=== PATIENT | male | born 1980 | race Caucasian/White ===

== ENCOUNTER 2020-07-08 00:55 | Emergency (ER) | payer SELFPAY ==
[2020-07-08 01:53] LABS: Absolute Lymphocytes (CBC) 2.6 K/uL (0.7-4.9); Basophils % 0.6 % (0-1.3); Hematocrit 46.5 % (39.6-49.0); RBC Red Blood Cell Count 5.18 M/uL (4.33-5.43)
[2020-07-08 02:04] LABS: BUN Blood Urea Nitrogen 14 mg/dL (7-18); Bicarbonate 29 mmol/L (21-32); Glucose Level 112 mg/dL (74-106); Lipase 77 U/L (73-393); Magnesium 2.1 mg/dL (1.8-2.4); NT PRO-BNP 43 pg/mL (<125); Phosphorus 3.1 mg/dL (2.5-4.9); Sodium Level 143 mmol/L (136-145); Troponin (Emerg Dept Use Only) < 0.02 ng/mL (0.0-0.045)
[2020-07-08] MEDS ORDERED: ONDANSETRON 4 MG/2 ML VIAL ONE (02:15)
[2020-07-08 02:35] LABS: Barbiturates NEGATIVE (NEGATIVE); Benzodiazepines NEGATIVE (NEGATIVE); Cocaine NEGATIVE (NEGATIVE); METHAMPHETAM POSITIVE (NEGATIVE); Methadone NEGATIVE (NEGATIVE); Opiates NEGATIVE (NEGATIVE); Phencyclidine NEGATIVE (NEGATIVE); THC Cannibis POSITIVE (NEGATIVE)
--- NOTE | 2020-07-08 03:48 | EDPHYS ---
Physician Documentation [facility] Name: Ta Quezada Age: 40 yrs Sex: Male : 1980 Arrival Date: 07/08/2020 Time: 01:00 Bed 8 Private MD: ED Physician Chirag Briones HPI: 07/08 01:46 This 40 yrs old Male presents to ER via Ambulatory with complaints of mh7 Shortness Of Breath, Dizziness, Decreased Appetite, Numbness of Fingers. 01:47 This 40 yrs old Male presents to ER via Ambulatory with complaints of mh7 Shortness Of Breath, Dizziness, Decreased Appetite, Numbness of Fingers. 01:47 The patient presents with dizziness, generalized weakness, lightheadedness. Onset: The mh7 symptoms/episode began/occurred yesterday, at 10:00. Context: occurred at home, occurred while the patient was at rest, just prior to the episode the patient experienced no apparent symptoms. Modifying factors: The symptoms are alleviated by nothing, the symptoms are aggravated by standing up. Associated signs and symptoms: Pertinent positives: nausea, numbness, shortness of breath, tingling, slurred speech, Pertinent negatives: blurred vision, chest pain, combativeness, diaphoresis, focal weakness, head injury, headache, near-syncope, palpitations, seizure, syncope, vomiting. Severity of symptoms: At their worst the symptoms were moderate yesterday, in the emergency department the symptoms have improved moderately. Patient's baseline: Neuro: alert and fully oriented, Motor: no deficits, Ambulation: walks without assistance, Speech: normal. Historical: - Allergies: 01:17 No Known Allergies; jb4 - Home Meds: 01:17 None [Active]; jb4 - PMHx: 01:17 Kidney stones; jb4 - PSHx: 01:17 None; jb4 - Immunization history:: Adult Immunizations up to date. - Social history:: Smoking status: Patient reports the use of cigarette tobacco products, smokes one-half pack cigarettes per day, Patient uses alcohol, but reports only rare drinking. Patient/guardian denies using street drugs. ROS: 01:47 Constitutional: Negative for fever, chills, and weight loss, Eyes: Negative for injury, mh7 pain, redness, and discharge, ENT: Negative for injury, pain, and discharge, Neck: Negative for injury, pain, and swelling, Cardiovascular: Negative for chest pain, palpitations, and edema, Back: Negative for injury and pain, : Negative for injury, bleeding, discharge, and swelling, MS/Extremity: Negative for injury and deformity, Skin: Negative for injury, rash, and discoloration, Psych: Negative for depression, anxiety, suicide ideation, homicidal ideation, and hallucinations, Allergy/Immunology: Negative for hives, rash, and allergies, Endocrine: Negative for neck swelling, polydipsia, polyuria, polyphagia, and marked weight changes, Hematologic/Lymphatic: Negative for swollen nodes, abnormal bleeding, and unusual bruising. Exam: 01:51 Head/Face: Normocephalic, atraumatic. Eyes: Pupils equal round and reactive to light, mh7 extra-ocular motions intact. Lids and lashes normal. Conjunctiva and sclera are non-icteric and not injected. Cornea within normal limits. Periorbital areas with no swelling, redness, or edema. Neck: Trachea midline, no thyromegaly or masses palpated, and no cervical lymphadenopathy. Supple, full range of motion without nuchal rigidity, or vertebral point tenderness. No Meningismus. Chest/axilla: Normal chest wall appearance and motion. Nontender with no deformity. No lesions are appreciated. Cardiovascular: Regular rate and rhythm with a normal S1 and S2. No gallops, murmurs, or rubs. Normal PMI, no JVD. No pulse deficits. Respiratory: Lungs have equal breath sounds bilaterally, clear to auscultation and percussion. No rales, rhonchi or wheezes noted. No increased work of breathing, no retractions or nasal flaring. Abdomen/GI: Soft, non-tender, with normal bowel sounds. No distension or tympany. No guarding or rebound. No evidence of tenderness throughout. Back: No spinal tenderness. No costovertebral tenderness. Full range of motion. Skin: Warm, dry with normal turgor. Normal color with no rashes, no lesions, and no evidence of cellulitis. 01:51 Psych: Awake, alert, with orientation to person, place and time. Behavior, mood, and affect are within normal limits. 01:51 Constitutional: The patient appears in no acute distress, alert, awake, anxious. 01:51 Musculoskeletal/extremity: 01:51 Neuro: Orientation: is normal, Mentation: is normal, Memory: is normal, Cranial nerves: grossly normal, Cerebellar function: is grossly normal, Motor: strength is 5/5 in the left arm, Strength is 3/5 in the right arm, the no evidence of posturing, Sensation: is normal, Gait: not tested. seizure activity, is not displayed by the patient, Abnormal movements: there are no abnormal movements. Vital Signs: 01:13 BP 146 / 97; Pulse 82; Resp 16; Temp 98.0(TE); Pulse Ox 99% on R/A; Weight 73.94 kg jb4 (R); Height 5 ft. 11 in. (180.34 cm) (R); Pain 0/10; 02:28 BP 144 / 81; Pulse 80; Resp 18; Pulse Ox 100% on R/A; mg2 03:53 BP 138 / 75; Pulse 60; Resp 18; Pulse Ox 100% on R/A; mg2 05:43 BP 127 / 71; Pulse 55; Resp 18; Pulse Ox 99% on R/A; mg2 06:42 BP 125 / 75; Pulse 75; Resp 18; Temp 98; Pulse Ox 100% on R/A; Pain 0/10; mg2 01:13 Body Mass Index 22.73 (73.94 kg, 180.34 cm) jb4 NIH Stroke Scale Scores: 01:23 NIHSS Score: 0 mg2 MDM: 01:26 Patient medically screened. mh7 03:45 Differential diagnosis: cardiac arrhythmia, CVA, generalized weakness, hypovolemia, mh7 idiopathic dizziness, near-syncope, syncope, TIA. Data reviewed: vital signs, nurses notes, lab test result(s), cardiac enzymes, CBC, electrolytes, urinalysis, urine drug screen, EKG, radiologic studies, CT scan, plain films. Data interpreted: Pulse oximetry: on room air is 100 %. Counseling: I had a detailed discussion with the patient and/or guardian regarding: the historical points, exam findings, and any diagnostic results supporting the discharge/admit diagnosis, the presence of at least one elevated blood pressure reading (>120/80) during this emergency department visit, lab results, radiology results, the need to transfer to another facility, for higher level of care, [facility] does not immediately have the required specialist. Response to treatment: the patient's symptoms have mildly improved after treatment. 07/08 01:31 Order name: Basic Metabolic Panel [facility] 07/08 01:31 Order name: CBC with Diff; Complete Time: 02:28 [facility] 07/08 01:31 Order name: Protime (+inr); Complete Time: 02:28 [facility] 07/08 01:31 Order name: Ptt, Activated; Complete Time: 02:28 [facility] 07/08 01:31 Order name: Troponin (emerg Dept Use Only); Complete Time: 02: [facility] 07/08 01:31 Order name: PROBNP; Complete Time: 02:28 [facility] 07/08 01:31 Order name: UDS; Complete Time: 03:35 [facility] 07/08 01:31 Order name: ETOH Level; Complete Time: 02: [facility] 07/08 01:31 Order name: Lipase; Complete Time: 02:28 [facility] 07/08 01:32 Order name: Basic Metabolic Panel; Complete Time: 02:28 [facility] 07/08 01:33 Order name: Glucose, Ancillary Testing; Complete Time: 01:45 [facility] 07/08 01:54 Order name: Phosphorus; Complete Time: 02:28 [facility] 07/08 01:31 Order name: CT Stroke Brain w/o Contrast [facility] 07/08 01:31 Order name: Stroke CXR 1 View [facility] 07/08 01:31 Order name: EKG; Complete Time: 01:33 [facility] 07/08 01:31 Order name: Accucheck; Complete Time: 01:38 [facility] 07/08 01:31 Order name: Cardiac monitoring; Complete Time: 01:38 [facility] 07/08 01:31 Order name: EKG - Nurse/Tech; Complete Time: 01:39 [facility] 07/08 01:31 Order name: IV Saline Lock; Complete Time: 01:39 [facility] 07/08 01:31 Order name: Labs collected and sent; Complete Time: 01:39 [facility] 07/08 01:31 Order name: NPO; Complete Time: 01:39 [facility] 07/08 01:54 Order name: Magnesium; Complete Time: 02:28 [facility] 07/08 02:24 Order name: Urine Dipstick--Ancillary (enter results) ms5 07/08 03:14 Order name: COVID-19 [facility] 07/08 03:34 Order name: SARS-COV-2 RT PCR [facility] 07/08 01:31 Order name: O2 Per Protocol; Complete Time: 01:39 7 07/08 01:31 Order name: O2 Sat Monitoring; Complete Time: 01:39 [facility] 07/08 01:31 Order name: Stroke Swallow Screen; Complete Time: 02:02 7 07/08 01:31 Order name: Urine Dipstick-Ancillary (obtain specimen); Complete Time: 02:06 7 Administered Medications: 02:06 Drug: Zofran (Ondansetron) 4 mg Route: IVP; Site: right antecubital; jb4 03:49 Follow up: Response: No adverse reaction mg2 04:57 Drug: Aspirin Chewable Tablet 324 mg Route: PO; mg2 06:05 Follow up: Response: No adverse reaction mg2 Point of Care Testing: Blood Glucose: 02:28 Blood Glucose: 108 mg/dL; mg2 Ranges: Critical Glucose Levels:Adult <50 mg/dl or >400 mg/dl <40 mg/dl or >180 mg/dl Disposition: 07/08/20 03:47 Transfer ordered to [facility]. Diagnosis is Cerebral Vascular Accident. - Reason for transfer: Higher level of care. - Accepting physician is Dr. Rousseau. - Condition is Stable. - Problem is new. - Symptoms have improved. NIH Stroke Scale - NIH Stroke Score Date: 07/08/2020 Time: Total Score = 0 1a. Level of Consciousness (LOC) - 0(Alert) 1b. Level of Consciousness (LOC) (Year \T\ Age) - 0(Both) 1c. LOC Commands (Open \T\ Closes Eyes/Production Estimator) - 0(Both) 2. Best Gaze (Lateral Gaze Paresis) - 0(Normal) 3. Visual Field Loss - 0(No visual loss) 4. Facial Palsy - 0(Normal) 5a. Left Arm: Motor (10-second hold) - 0(No drift) 5b. Right Arm: Motor (10-second hold) - 0(No drift) 6a. Left Leg: Motor (5-second hold - always test supine) - 0(No drift) 6b. Right Leg: Motor (5-second hold - always test supine) - 0(No drift) 7. Limb Ataxia (finger/nose \T\ heel/holm - test with eyes open) - 0(Absent) 8. Sensory Loss (pinprick arms/legs/face) - 0(Normal) 9. Best Language: Aphasia (description/naming/reading) - 0(No aphasia) 10. Dysarthria (speech clarity - read or repeat words) - 0(Normal) 11. Extinction and Inattention (visual/tactile/auditory/spatial/personal) - 0(No abnormality) Initials: mg2 Signatures: Dispatcher [employer] EDMS Edward Mcguire RN RN jb4 Den Morin RN RN mg2 Chirag Briones MD MD mh7 Corrections: (The following items were deleted from the chart) 01:54 01:51 MAGNESIUM+C.LAB.BRZ ordered. EDMS EDMS 01:54 01:51 PHOSPHORUS+C.LAB.BRZ ordered. EDMS EDMS 03:34 03:14 CORONAVIRUS ordered. EDMS EDMS 06:43 03:47 07/08/2020 03:47 Transfer ordered to [address] Diagnosis is Cerebral Vascular Accident. Reason for transfer: Higher level of care. Accepting physician is Dr. Rousseau. Condition is Stable. Problem is new. Symptoms have improved. mh7
--- NOTE | 2020-07-08 03:48 | ER ---
Nurse's Notes [facility] Name: Ta Quezada Age: 40 yrs Sex: Male : 1980 Arrival Date: 07/08/2020 Time: 01:00 Bed 8 Private MD: Diagnosis: Cerebral Vascular Accident Presentation: 07/08 01:13 Chief complaint: Chief complaint: Patient states: 1000 yesterday I started having jb4 slurred speech and my says I have been stuttering through out the day and loosing my train of thought. I have tingling on my right side and have been shaking all day. I am getting dizzy when I stand up and have some shortness of breath that comes and goes. I haven't had an appetite for the past for days, and have not been sleeping well. 01:13 Coronavirus screen: Client denies travel out of the [place] in the last 14 days. At this jb4 time, the client does not indicate any symptoms associated with coronavirus-19. Ebola Screen: No symptoms or risks identified at this time. Initial Sepsis Screen: Does the patient meet any 2 criteria? No. Patient's initial sepsis screen is negative. Does the patient have a suspected source of infection? No. Patient's initial sepsis screen is negative. Risk Assessment: Do you want to hurt yourself or someone else? Patient reports no desire to harm self or others. Onset of symptoms was July 07, 2020 at 10:00. Transition of care: patient was not received from another setting of care. 01:13 Method Of Arrival: Ambulatory jb4 01:13 Acuity: RENE 3 jb4 02:28 No acute neurological deficit is noted. The patients blood glucose was checked before mg2 arriving to the hospital and was found to be normal. Triage Assessment: 01:30 The onset of the patients symptoms was July 07, 2020 at 10:00. Respiratory: the mg2 patient has mild shortness of breath. 01:30 General: Appears in no apparent distress. comfortable. Respiratory: Reports shortness mg2 of breath Onset: The symptoms/episode began/occurred gradually. Historical: - Allergies: 01:17 No Known Allergies; jb4 - Home Meds: 01:17 None [Active]; jb4 - PMHx: 01:17 Kidney stones; jb4 - PSHx: 01:17 None; jb4 - Immunization history:: Adult Immunizations up to date. - Social history:: Smoking status: Patient reports the use of cigarette tobacco products, smokes one-half pack cigarettes per day, Patient uses alcohol, but reports only rare drinking. Patient/guardian denies using street drugs. Screenin:22 Abuse screen: Denies threats or abuse. Denies injuries from another. Nutritional mg2 screening: No deficits noted. Tuberculosis screening: No symptoms or risk factors identified. Fall Risk IV access (20 points). Assessment: :17 VAN Scoring: Arm Drift: Patients demonstrates NO arm weakness. Patient is VAN Negative. jb4 01:22 General: Appears in no apparent distress. comfortable, Behavior is calm, cooperative. mg2 Pain: Denies pain. Neuro: Level of Consciousness is awake, alert, obeys commands, Oriented to person, place, time, situation, Quartz Orientator are equal bilaterally. Neuro: Reports dizziness. Cardiovascular: Rhythm is sinus rhythm. Respiratory: Reports shortness of breath Airway is patent Respiratory effort is even, unlabored, Respiratory pattern is regular, symmetrical. GI: Reports nausea. : No signs and/or symptoms were reported regarding the genitourinary system. EENT: No signs and/or symptoms were reported regarding the EENT system. Derm: Skin is intact, is healthy with good turgor, Skin is pink, warm \T\ dry. normal. Musculoskeletal: Circulation, motion, and sensation intact. Capillary refill < 3 seconds. 02:27 Patient has been NPO before screening. The patient is alert, and able to follow mg2 commands. The patient does not exhibit slurred or garbled speech. The patient is not exhibiting difficulty speaking. The patient does not exhibit difficulty understanding words. The patient is able to swallow own secretions with no drooling or need for suction. Patient tolerated one teaspoon of water. No drooling, immediate coughing, gurgling, or clearing of the throat was noted. The patient tolerated 90mL of water. No drooling, immediate coughing, gurgling, or clearing of the throat was noted. The patient passed the bedside swallow screening. Oral medications may be given as ordered. Contact Physician for further diet orders. Provider notified of bedside swallow screening results: Chirag Briones MD. Respiratory: Breath sounds are clear. 03:30 Reassessment: patient agreed to be transferred to other facility for neuro admission. mg2 03:46 Reassessment: pt spouse has given me a blue bag with pt belonging inside, I have given sg the pt spouse a set of car keys and a set of keys to his shop. 04:33 Reassessment: report given to Nenita Flannery RN of [facility]. patient signed mg2 the transfer form. 05:44 Reassessment: Patient appears in no apparent distress at this time. Patient and/or mg2 family updated on plan of care and expected duration. Pain level reassessed. Patient is alert, oriented x 3, equal unlabored respirations, skin warm/dry/pink. 06:40 Reassessment: patient in good condition, pain-free, IV intact, AOx4. mg2 Vital Signs: 01:13 BP 146 / 97; Pulse 82; Resp 16; Temp 98.0(TE); Pulse Ox 99% on R/A; Weight 73.94 kg jb4 (R); Height 5 ft. 11 in. (180.34 cm) (R); Pain 0/10; 02:28 BP 144 / 81; Pulse 80; Resp 18; Pulse Ox 100% on R/A; mg2 03:53 BP 138 / 75; Pulse 60; Resp 18; Pulse Ox 100% on R/A; mg2 05:43 BP 127 / 71; Pulse 55; Resp 18; Pulse Ox 99% on R/A; mg2 06:42 BP 125 / 75; Pulse 75; Resp 18; Temp 98; Pulse Ox 100% on R/A; Pain 0/10; mg2 01:13 Body Mass Index 22.73 (73.94 kg, 180.34 cm) jb4 NIH Stroke Scale Scores: 01:23 NIHSS Score: 0 mg2 ED Course: 01:00 Patient arrived in ED. bp1 01:07 Chirag Briones MD is Attending Physician. mh7 01:09 Den Morin, ANGELICA is Primary Nurse. mg2 01:16 Triage completed. jb4 01:17 Arm band placed on right wrist. jb4 01:22 No provider procedures requiring assistance completed. Inserted saline lock: 20 gauge mg2 in right antecubital area, using aseptic technique. Blood collected. 01:23 Patient has correct armband on for positive identification. mg2 01:44 CT Stroke Brain w/o Contrast In Process Unspecified. EDMS 01:52 Stroke CXR 1 View In Process Unspecified. EDMS 03:09 Initiated transfer to [facility]. Spoke with Yaneth Jean, pt. diagnosis CVA needs [facility] neurology. 03:30 COVID 19 swab sent to the lab per hospital policy. sg 03:34 Dr. Briones spoke with neurologist Dr. Santillan. ar5 03:45 Dr. Briones spoke with Hospitalist Dr. Lopez. ar5 03:49 Patient transferred, IV remains in place. mg2 03:58 Acceptance given by Yaneth Jean. Accepting physician Dr. Lopez. Pt. going to [address] due to no bed availabiltiy \T\ [facility] [address] 371. Call report to . Administered Medications: 02:06 Drug: Zofran (Ondansetron) 4 mg Route: IVP; Site: right antecubital; jb4 03:49 Follow up: Response: No adverse reaction mg2 04:57 Drug: Aspirin Chewable Tablet 324 mg Route: PO; mg2 06:05 Follow up: Response: No adverse reaction mg2 Point of Care Testing: Blood Glucose: 02:28 Blood Glucose: 108 mg/dL; mg2 Ranges: Outcome: 03:47 ER care complete, transfer ordered by . 7 06:42 Transferred by ground EMS to other acute care facility: [facility]. mg2 06:42 Condition: stable 06:42 Instructed on the need for transfer, Demonstrated understanding of instructions. 06:43 Patient left the ED. mg2 NIH Stroke Scale - NIH Stroke Score Date: 07/08/2020 Time: 01:23 Total Score = 0 1a. Level of Consciousness (LOC) - 0(Alert) 1b. Level of Consciousness (LOC) (Year \T\ Age) - 0(Both) 1c. LOC Commands (Open \T\ Closes Eyes/Medical Assistant Prn) - 0(Both) 2. Best Gaze (Lateral Gaze Paresis) - 0(Normal) 3. Visual Field Loss - 0(No visual loss) 4. Facial Palsy - 0(Normal) 5a. Left Arm: Motor (10-second hold) - 0(No drift) 5b. Right Arm: Motor (10-second hold) - 0(No drift) 6a. Left Leg: Motor (5-second hold - always test supine) - 0(No drift) 6b. Right Leg: Motor (5-second hold - always test supine) - 0(No drift) 7. Limb Ataxia (finger/nose \T\ heel/holm - test with eyes open) - 0(Absent) 8. Sensory Loss (pinprick arms/legs/face) - 0(Normal) 9. Best Language: Aphasia (description/naming/reading) - 0(No aphasia) 10. Dysarthria (speech clarity - read or repeat words) - 0(Normal) 11. Extinction and Inattention (visual/tactile/auditory/spatial/personal) - 0(No abnormality) Initials: mg2 Signatures: Dispatcher [employer] EDRandall Shepherd RN RN sg Edward Mcguire RN RN jb4 Den Morin RN RN mg2 Antonette Reyes ar5 Caprice Bettencourt Maurice, MD MD 7 Corrections: (The following items were deleted from the chart) 01:16 01:13 Chief complaint: jbAlisha hanks 04:34 04:27 Acceptance given by Yaneth Jean. Accepting physician Dr. Lopez. Pt. ar5 going to [facility] due to no bed availabiltiy \T\ [facility] [address] 371. Call report to arRgoer
[2020-07-08 04:52] LABS: Urine Blood TRACE (NEG); Urine Glucose NEGATIVE (NEG); Urine Protein NEGATIVE (NEG); Urine Specific Gravity 1.025 (1.005-1.030)
[2020-07-08] MEDS ORDERED: ASPIRIN 81 MG CHEWABLE TABLET ONE (05:04)
[2020-07-08 06:56] VITALS: BP 125/75; TEMP 98; O2SAT 100
--- NOTE | 2020-07-08 08:30 | RAD REPORT ---
EXAM DESCRIPTION: RAD - Chest Single View - 07/08/2020 1:52 am CLINICAL HISTORY: SOB Chest pain. COMPARISON: No comparisons FINDINGS: Portable technique limits examination quality. The lungs are grossly clear. The heart is normal in size. No displaced fractures. IMPRESSION: No acute intrathoracic process suspected.
--- NOTE | 2020-07-08 14:03 | RAD REPORT ---
EXAM DESCRIPTION: Ct Stroke Brain Wo Cont ADDENDUM #1 ADDENDUM: THIS REPORT CONTAINS FINDINGS THAT MAY BE CRITICAL TO PATIENT'S CARE: The findings were verbally discussed via telephone conference with Chirag Briones by Dr. Gilliam on 07/08/2020 1:56 AM CDT. The results were acknowledged and understood. Electronically signed by: Fercho Gilliam DO 07/08/2020 1:56 AM CDT End of Addendum EXAM DESCRIPTION: Ct Stroke Brain Wo Cont CLINICAL HISTORY: 40 years Male Weakness;Dizziness COMPARISON: None TECHNIQUE: Contiguous axial images of the brain were obtained without the administration of intraven ous contrast.This exam was performed according to our departmental dose-optimization program which in cludes use of Automated Exposure Control, adjustment of the mA and/or kV according to patient size an d/or use of iterative reconstruction technique. DLP: 803 mGy*cm FINDINGS: Brain: No acute intracranial hemorrhage. No extra-axial collection. No mass effect or sara iation. Ventricles: Within normal limits in size. Globes and orbits: No acute abnormality. Bones: No acute osseous finding Paranasal sinuses: Paranasal sinuses are clear. Mastoid air cells: Well pneumatized. Soft tissues: Within normal limits IMPRESSION: No acute intracranial abnormality. Electronically signed by: Fercho Gilliam DO 07/08/2020 1:50 AM CDT Due to temporary technical issues with the PACS/Fluency reporting system, reports are being signed by the in house radiologist without review as a courtesy to ensure prompt reporting. The interpreting r adiologist is fully responsible for the content of the report.
== END 2020-07-08 06:43 | disposition short-term general hospital (02) ==
LOC: ER 00:55
DX: I63.9 Cerebral infarction, unspecified (principal); R29.700 NIHSS score 0; F17.210 Nicotine dependence, cigarettes, uncomplicated; Z20.828 Contact with and (suspected) exposure to other viral communicable diseases
CPT/HCPCS: 36415; 70450; 71045; 80048; 80307; 80320; 81003; 82947; 83690; 83735; 83880; 84100; 84484; 85025; 85610; 85730; 93005; 96374; 99285; J2405; U0003

== ENCOUNTER 2020-07-13 13:06 | Emergency (ER) | payer SELFPAY ==
--- OUTSIDE RECORDS SUMMARY | 2020-07-13 13:08 | XMS REPORT | Clinical Summary ---
:1980 Author Organization [facility] Address [address] [place] [address] Care Team Providers Name Role Phone Pcp Primary Care Provider Unavailable Allergies No Known Allergies Medications Medication Sig Dispensed Refills Start Date End Date Status aspirin 81 MG Take 1 tablet (81 0 07/08/2020 021 Active chewable tablet mg total) by mouth daily. Active Problems Problem Noted Date Tingling of right upper extremity 07/08/2020 Tingling 07/08/2020 Encounters Date Type Specialty Care Team Description 07/08/2020 Hospital Encounter General Internal John, [facility] MD Mague Aiken, MD Javier Bustamante Celestine, MD 07/08/2020 Travel after 07/13/2019 Social History Tobacco Use Types Packs/Day Years Used Date Current Every Day Smoker Smokeless Tobacco: Never Used Sex Assigned at Date Recorded Not on file Job Start Date Occupation Industry Not on file Not on file Not on file Travel History Travel Start Travel End No recent travel history available. Last Filed Vital Signs Vital Sign Reading Time Taken Blood Pressure 117/74 07/08/2020 8:00 PM CDT Pulse 50 07/08/2020 8:00 PM CDT Temperature 36.8 C (98.3 F) 07/08/2020 8:00 PM CDT Respiratory Rate 17 07/08/2020 8:00 PM CDT Oxygen Saturation 98% 07/08/2020 8:00 PM CDT Inhaled Oxygen Concentration - - Weight - - Height - - Body Mass Index - - Plan of Treatment Health Maintenance Due Date Last Done Comments PNEUMOCOCCAL VACCINE 2-64 YEARS AT RISK ( - 1985 PPSV23) LIPID PANEL 2014 INFLUENZA VACCINE (#1) 2020 Procedures Procedure Name Priority Date/Time Associated Diagnosis Comme nts MRA NECK WITHOUT IV Routine 07/08/2020 6:07 PM R esults for this CONTRAST CDT procedure are i n the results section. MRA HEAD WITHOUT IV Routine 07/08/2020 6:07 PM R esults for this CONTRAST CDT procedure are i n the results section. MR BRAIN WITHOUT IV Routine 07/08/2020 6:07 PM R esults for this CONTRAST CDT procedure are i n the results section. after 07/13/2019 Results MR brain without IV contrast (07/08/2020 6:07 PM CDT) Specimen Narrative Performed At FINAL REPORT [employer] [facility] MR, BRAIN, WITHOUT CONTRAST, MR, MRA, BR AIN, WITHOUT CONTRAST, MR, MRA, NECK, WITHOUT IV CONTRAST INDICATION: Unlisted Reason for Exam tingling/numbness TECHNIQUE: Multiplanar, multisequence MR imaging of the brain without intravenous contrast. MRA of the head utilizing 3-D time-of-fl ight technique, with 3-D reconstructions. MRA of the neck utilizing 2-D and 3-D ti wn-mv-ovvfwt technique, with 3-D reconstructions. COMPARISON: None FINDINGS: MRI Brain: Intracranial: No intracranial hemorrhage . No restricted diffusion to suggest acute infarct. No mass effect. No hydrocephalus. Sinuses: No evidence of sinusitis. Masto ids are clear. Orbits: Globes are intact. Calvarium \T\ scalp: Unremarkable. MRA Head: There is no evidence of intracranial ane urysm, focal stenosis, or major branch vessel occlusion. Diminutiv e left vertebral artery terminates in PICA. MRA Neck: The carotid arteries in the neck are pat ent including their bifurcations. There is antegrade flow in the vertebral arteries in the neck. Left vertebral artery is diminutive along the entirety of its course. IMPRESSION: 1.No acute intracranial abnormality. 2.No proximal branch arterial occlusion or high-grade focal stenosis within the head and neck. Signed: Talya Mcelroy MD Report Verified Date/Time:07/08/2020 19:26:58 Procedure Note Interface, External Ris In - 07/08/2020 7:29 PM CDT FINAL REPORT MR, BRAIN, WITHOUT CONTRAST, MR, MRA, BR AIN, WITHOUT CONTRAST, MR, MRA, NECK, WITHOUT IV CONTRAST INDICATION: Unlisted Reason for Exam tingling/numbness TECHNIQUE: Multiplanar, multisequence MR imaging of the brain without intravenous contrast. MRA of the head utilizing 3-D time-of-fl ight technique, with 3-D reconstructions. MRA of the neck utilizing 2-D and 3-D ti lf-bl-scmelp technique, with 3-D reconstructions. COMPARISON: None FINDINGS: MRI Brain: Intracranial: No intracranial hemorrhage . No restricted diffusion to suggest acute infarct. No mass effect. No hydrocephalus. Sinuses: No evidence of sinusitis. Masto ids are clear. Orbits: Globes are intact. Calvarium \T\ scalp: Unremarkable. MRA Head: There is no evidence of intracranial ane urysm, focal stenosis, or major branch vessel occlusion. Diminutiv e left vertebral artery terminates in PICA. MRA Neck: The carotid arteries in the neck are pat ent including their bifurcations. There is antegrade flow in the vertebral arteries in the neck. Left vertebral artery is diminutive along the entirety of its course. IMPRESSION: 1.No acute intracranial abnormality. 2.No proximal branch arterial occlusion or high-grade focal stenosis within the head and neck. Signed: Talya Mcelroy MD Report Verified Date/Time: 07/08/2020 1 9:26:58 Performing Organization Address City/State/Zipcode Phone Number [facility] MRA neck without IV contrast (07/08/2020 6:07 PM CDT) Specimen Narrative Performed At FINAL REPORT [facility] MR, BRAIN, WITHOUT CONTRAST, MR, MRA, BR AIN, WITHOUT CONTRAST, MR, MRA, NECK, WITHOUT IV CONTRAST INDICATION: Unlisted Reason for Exam tingling/numbness TECHNIQUE: Multiplanar, multisequence MR imaging of the brain without intravenous contrast. MRA of the head utilizing 3-D time-of-fl ight technique, with 3-D reconstructions. MRA of the neck utilizing 2-D and 3-D ti bf-pk-avxbnr technique, with 3-D reconstructions. COMPARISON: None FINDINGS: MRI Brain: Intracranial: No intracranial hemorrhage . No restricted diffusion to suggest acute infarct. No mass effect. No hydrocephalus. Sinuses: No evidence of sinusitis. Masto ids are clear. Orbits: Globes are intact. Calvarium \T\ scalp: Unremarkable. MRA Head: There is no evidence of intracranial ane urysm, focal stenosis, or major branch vessel occlusion. Diminutiv e left vertebral artery terminates in PICA. MRA Neck: The carotid arteries in the neck are pat ent including their bifurcations. There is antegrade flow in the vertebral arteries in the neck. Left vertebral artery is diminutive along the entirety of its course. IMPRESSION: 1.No acute intracranial abnormality. 2.No proximal branch arterial occlusion or high-grade focal stenosis within the head and neck. Signed: Tlaya Mcelroy MD Report Verified Date/Time:07/08/2020 19:26:58 Procedure Note Interface, External Ris In - 07/08/2020 7:29 PM CDT FINAL REPORT MR, BRAIN, WITHOUT CONTRAST, MR, MRA, BR AIN, WITHOUT CONTRAST, MR, MRA, NECK, WITHOUT IV CONTRAST INDICATION: Unlisted Reason for Exam tingling/numbness TECHNIQUE: Multiplanar, multisequence MR imaging of the brain without intravenous contrast. MRA of the head utilizing 3-D time-of-fl ight technique, with 3-D reconstructions. MRA of the neck utilizing 2-D and 3-D ti ab-ui-ridjks technique, with 3-D reconstructions. COMPARISON: None FINDINGS: MRI Brain: Intracranial: No intracranial hemorrhage . No restricted diffusion to suggest acute infarct. No mass effect. No hydrocephalus. Sinuses: No evidence of sinusitis. Masto ids are clear. Orbits: Globes are intact. Calvarium \T\ scalp: Unremarkable. MRA Head: There is no evidence of intracranial ane urysm, focal stenosis, or major branch vessel occlusion. Diminutiv e left vertebral artery terminates in PICA. MRA Neck: The carotid arteries in the neck are pat ent including their bifurcations. There is antegrade flow in the vertebral arteries in the neck. Left vertebral artery is diminutive along the entirety of its course. IMPRESSION: 1.No acute intracranial abnormality. 2.No proximal branch arterial occlusion or high-grade focal stenosis within the head and neck. Signed: Talya Mcelroy MD Report Verified Date/Time: 07/08/2020 1 9:26:58 Performing Organization Address City/State/Zipcode Phone Number [facility] MRA head without IV contrast (07/08/2020 6:07 PM CDT) Specimen Narrative Performed At FINAL REPORT [facility] MR, BRAIN, WITHOUT CONTRAST, MR, MRA, BR AIN, WITHOUT CONTRAST, MR, MRA, NECK, WITHOUT IV CONTRAST INDICATION: Unlisted Reason for Exam tingling/numbness TECHNIQUE: Multiplanar, multisequence MR imaging of the brain without intravenous contrast. MRA of the head utilizing 3-D time-of-fl ight technique, with 3-D reconstructions. MRA of the neck utilizing 2-D and 3-D ti qe-br-sjtzrc technique, with 3-D reconstructions. COMPARISON: None FINDINGS: MRI Brain: Intracranial: No intracranial hemorrhage . No restricted diffusion to suggest acute infarct. No mass effect. No hydrocephalus. Sinuses: No evidence of sinusitis. Masto ids are clear. Orbits: Globes are intact. Calvarium \T\ scalp: Unremarkable. MRA Head: There is no evidence of intracranial ane urysm, focal stenosis, or major branch vessel occlusion. Diminutiv e left vertebral artery terminates in PICA. MRA Neck: The carotid arteries in the neck are pat ent including their bifurcations. There is antegrade flow in the vertebral arteries in the neck. Left vertebral artery is diminutive along the entirety of its course. IMPRESSION: 1.No acute intracranial abnormality. 2.No proximal branch arterial occlusion or high-grade focal stenosis within the head and neck. Signed: Talya Mcelroy MD Report Verified Date/Time:07/08/2020 19:26:58 Procedure Note Interface, External Ris In - 07/08/2020 7:29 PM CDT FINAL REPORT MR, BRAIN, WITHOUT CONTRAST, MR, MRA, BR AIN, WITHOUT CONTRAST, MR, MRA, NECK, WITHOUT IV CONTRAST INDICATION: Unlisted Reason for Exam tingling/numbness TECHNIQUE: Multiplanar, multisequence MR imaging of the brain without intravenous contrast. MRA of the head utilizing 3-D time-of-fl ight technique, with 3-D reconstructions. MRA of the neck utilizing 2-D and 3-D ti dm-lm-impjww technique, with 3-D reconstructions. COMPARISON: None FINDINGS: MRI Brain: Intracranial: No intracranial hemorrhage . No restricted diffusion to suggest acute infarct. No mass effect. No hydrocephalus. Sinuses: No evidence of sinusitis. Masto ids are clear. Orbits: Globes are intact. Calvarium \T\ scalp: Unremarkable. MRA Head: There is no evidence of intracranial ane urysm, focal stenosis, or major branch vessel occlusion. Diminutiv e left vertebral artery terminates in PICA. MRA Neck: The carotid arteries in the neck are pat ent including their bifurcations. There is antegrade flow in the vertebral arteries in the neck. Left vertebral artery is diminutive along the entirety of its course. IMPRESSION: 1.No acute intracranial abnormality. 2.No proximal branch arterial occlusion or high-grade focal stenosis within the head and neck. Signed: Talya Mcelroy MD Report Verified Date/Time: 07/08/2020 1 9:26:58 Performing Organization Address City/State/Zipcode Phone Number [facility] RIS after 07/13/2019 Advance Directives For more information, please contact:[place] [id number] [place], [place] [phone] Code Status Date Activated Date Inactivated Comments Full Code 07/08/2020 10:30 AM 07/09/2020 1:14 AM This code status was determined by: Patient
--- OUTSIDE RECORDS SUMMARY | 2020-07-13 13:08 | XMS REPORT | Continuity of Care Document ---
:1980 Author Organization [facility] t Address [address] [place] [address] Care Team Providers Name Role Phone Pcp Primary Care Physician Unavailable John GUAMAN, Attila Attending Clinician Sonia Bowser MD Attending Clinician Javier Calderon MD Attending Clinician Problems Condition Condition Condition Status Onset Resolution Last Treating Co mments Source Name Details Category Date Date Treatment Clinician Date Tingling Tingling Disease [facility] Tingling Tingling Disease [facility] Allergies, Adverse Reactions, Alerts This patient has no known allergies or adverse reactions. Social History Social Habit Start Date Stop Date Quantity Comments Source Sex Assigned At [facility] Smoking Status Start Date Stop Date Source Current every day smoker 2020-07-08 00:00:00 [facility] Medications Ordered Filled Start Stop Current Ordering Indication Dosage Frequency Signature Comments Components Source Medication Medication Date Date Medication? Clinician (SIG) Name Name aspirin 81 2020- Yes 81mg QD Take [address] [facility] chewable 07-08 tablet (81 L [facility] - tablet 00:00: 23:59 mg total) Medic al 00 :00 by mouth Center daily. Vital Signs Vital Name Observation Time Observation Value Comments Source Systolic blood 2020-07-08 20:00:00 117 mm[Hg] [facility] Diastolic blood 2020-07-08 20:00:00 74 mm[Hg] [facility] Heart rate 2020-07-08 20:00:00 50 /min [facility] Body temperature 2020-07-08 20:00:00 36.83 [place] Respiratory rate 2020-07-08 20:00:00 17 /min [facility] Oxygen saturation in 2020-07-08 20:00:00 98 /min [facility] Arterial blood by Medical Ce nter Pulse oximetry Procedures Procedure Date / Time Performed Performing Clinician Sour e MR BRAIN WITHOUT IV 2020-07-08 18:07:00 Bowser, [facility] MRA HEAD WITHOUT IV 2020-07-08 18:07:00 [facility], [facility] CONTRAST [facility] MRA NECK WITHOUT IV 2020-07-08 18:07:00 Bowser, [facility] Plan of Care Planned Activity Planned Date Details Comments Source Future Scheduled 2020-06-18 INFLUENZA VACCINE (#1) [facility] - Test 00:00:00 [code = INFLUENZA Medical Ce nter VACCINE (#1)] Future Scheduled 2014 Lipid panel [facility] - Test 00:00:00 (procedure) [code = [facility] [id number]] Future Scheduled 1985 PNEUMOCOCCAL VACCINE [facility] - Test 00:00:00 2-64 YEARS AT RISK (1 [facility] - PPSV23) [code = PNEUMOCOCCAL VACCINE 2-64 YEARS AT RISK (1 of 1 - PPSV23)] Results Test Description Test Time Test Comments Results Result Sour e Comments MR, BRAIN, 2020-07-08 Unlisted FINAL REPORT WITHOUT CONTRAST 19:26:00 Reason for PATIENT ID: Exam - Click [id number] MR, BRAIN, Yes and Enter WITHOUT CONTRAST, Reason MR, MRA, BRAIN, Below->YesUnli WITHOUT CONTRAST, sted Reason MR, MRA, NECK, for WITHOUT IV CONTRAST Exam->tingling INDICATION: /numbness Unlisted Reason for Examtingling/numbne ss TECHNIQUE: Multiplanar, multisequence MR imaging of the brain without intravenous contrast.MRA of the head utilizing 3-D tdgb-si-pkuinu technique, with 3-D reconstructions.MRA of the neck utilizing 2-D and 3-D qvcl-te-bfgtow technique, with 3-D reconstructions. COMPARISON: None FINDINGS: MRI Brain:Intracranial: No intracranial hemorrhage. No restricted diffusion to suggest acute infarct. No mass effect. No hydrocephalus. Sinuses: No evidence of sinusitis. Mastoids are clear. Orbits: Globes are intact. Calvarium \T\ scalp: Unremarkable. MRA Head:There is no evidence of intracranial aneurysm, focal stenosis, or major branch vessel occlusion. Diminutive left vertebral artery terminates in PICA. MRA Neck:The carotid arteries in the neck are patent including their bifurcations. There is antegrade flow in the vertebral arteries in the neck. Left vertebral artery is diminutive along the entirety of its course. IMPRESSION:1.No acute intracranial abnormality.2.No proximal branch arterial occlusion or high-grade focal stenosis within the head and neck. Signed: Talya Mcelroy Verified Date/Time: 07/08/2020 19:26:58 , MRA, BRAIN, 2020-07-08 Unlisted FINAL REPORT WITHOUT CONTRAST 19:26:00 Reason for PATIENT ID: Exam - Click [id number] MR, BRAIN, Yes and Enter WITHOUT CONTRAST, Reason MR, MRA, BRAIN, Below->YesUnli WITHOUT CONTRAST, sted Reason MR, MRA, NECK, for WITHOUT IV CONTRAST Exam->tingling INDICATION: , numbness Unlisted Reason for Examtingling/numbne ss TECHNIQUE: Multiplanar, multisequence MR imaging of the brain without intravenous contrast.MRA of the head utilizing 3-D uoyt-nl-hzxkcw technique, with 3-D reconstructions.MRA of the neck utilizing 2-D and 3-D cyku-mo-mimxnm technique, with 3-D reconstructions. COMPARISON: None FINDINGS: MRI Brain:Intracranial: No intracranial hemorrhage. No restricted diffusion to suggest acute infarct. No mass effect. No hydrocephalus. Sinuses: No evidence of sinusitis. Mastoids are clear. Orbits: Globes are intact. Calvarium \T\ scalp: Unremarkable. MRA Head:There is no evidence of intracranial aneurysm, focal stenosis, or major branch vessel occlusion. Diminutive left vertebral artery terminates in PICA. MRA Neck:The carotid arteries in the neck are patent including their bifurcations. There is antegrade flow in the vertebral arteries in the neck. Left vertebral artery is diminutive along the entirety of its course. IMPRESSION:1.No acute intracranial abnormality.2.No proximal branch arterial occlusion or high-grade focal stenosis within the head and neck. Signed: Talya Mcelroy Verified Date/Time: 07/08/2020 19:26:58 , MRA, NECK, 2020-07-08 Unlisted FINAL REPORT WITHOUT IV 19:26:00 Reason for PATIENT ID: CONTRAST Exam - Click [id number] MR, BRAIN, Yes and Enter WITHOUT CONTRAST, Reason MR, MRA, BRAIN, Below->YesUnli WITHOUT CONTRAST, sted Reason MR, MRA, NECK, for WITHOUT IV CONTRAST Exam->tingling INDICATION: , numbness Unlisted Reason for Examtingling/numbne ss TECHNIQUE: Multiplanar, multisequence MR imaging of the brain without intravenous contrast.MRA of the head utilizing 3-D hore-hl-ushuxv technique, with 3-D reconstructions.MRA of the neck utilizing 2-D and 3-D rmxl-cq-jahhai technique, with 3-D reconstructions. COMPARISON: None FINDINGS: MRI Brain:Intracranial: No intracranial hemorrhage. No restricted diffusion to suggest acute infarct. No mass effect. No hydrocephalus. Sinuses: No evidence of sinusitis. Mastoids are clear. Orbits: Globes are intact. Calvarium \T\ scalp: Unremarkable. MRA Head:There is no evidence of intracranial aneurysm, focal stenosis, or major branch vessel occlusion. Diminutive left vertebral artery terminates in PICA. MRA Neck:The carotid arteries in the neck are patent including their bifurcations. There is antegrade flow in the vertebral arteries in the neck. Left vertebral artery is diminutive along the entirety of its course. IMPRESSION:1.No acute intracranial abnormality.2.No proximal branch arterial occlusion or high-grade focal stenosis within the head and neck. Signed: Talya Mcelroyort Verified Date/Time: 07/08/2020 19:26:58 head without 2020-07-08 Interface, External [facility] IV contrast 19:26:00 Ris In - 07/08/2020 - Ct dical 7:29 PM [facility] Center REPORT MR, BRAIN, WITHOUT CONTRAST, MR, MRA, BRAIN, WITHOUT CONTRAST, MR, MRA, NECK, WITHOUT IV CONTRAST INDICATION: Unlisted Reason for Examtingling/numbne ss TECHNIQUE: Multiplanar, multisequence MR imaging of the brain without intravenous contrast.MRA of the head utilizing 3-D hicz-nr-sixpbw technique, with 3-D reconstructions.MRA of the neck utilizing 2-D and 3-D vkiw-ml-sbpjia technique, with 3-D reconstructions. COMPARISON: None FINDINGS: MRI Brain:Intracranial: No intracranial hemorrhage. No restricted diffusion to suggest acute infarct. No mass effect. No hydrocephalus. Sinuses: No evidence of sinusitis. Mastoids are clear. Orbits: Globes are intact. Calvarium \T\ scalp: Unremarkable. MRA Head:There is no evidence of intracranial aneurysm, focal stenosis, or major branch vessel occlusion. Diminutive left vertebral artery terminates in PICA. MRA Neck:The carotid arteries in the neck are patent including their bifurcations. There is antegrade flow in the vertebral arteries in the neck. Left vertebral artery is diminutive along the entirety of its course. IMPRESSION:1.No acute intracranial abnormality.2.No proximal branch arterial occlusion or high-grade focal stenosis within the head and neck. Signed: [facility]a [facility] Verified Date/Time: 07/08/2020 19:26:58 neck without 2020-07-08 Interface, External [facility] IV contrast 19:26:00 Ris In - 07/08/2020 - Ct dical 7:29 PM [facility] Center REPORT MR, BRAIN, WITHOUT CONTRAST, MR, MRA, BRAIN, WITHOUT CONTRAST, MR, MRA, NECK, WITHOUT IV CONTRAST INDICATION: Unlisted Reason for Examtingling/numbne ss TECHNIQUE: Multiplanar, multisequence MR imaging of the brain without intravenous contrast.MRA of the head utilizing 3-D hyls-xj-axdinn technique, with 3-D reconstructions.MRA of the neck utilizing 2-D and 3-D glbs-uy-vastdn technique, with 3-D reconstructions. COMPARISON: None FINDINGS: MRI Brain:Intracranial: No intracranial hemorrhage. No restricted diffusion to suggest acute infarct. No mass effect. No hydrocephalus. Sinuses: No evidence of sinusitis. Mastoids are clear. Orbits: Globes are intact. Calvarium \T\ scalp: Unremarkable. MRA Head:There is no evidence of intracranial aneurysm, focal stenosis, or major branch vessel occlusion. Diminutive left vertebral artery terminates in PICA. MRA Neck:The carotid arteries in the neck are patent including their bifurcations. There is antegrade flow in the vertebral arteries in the neck. Left vertebral artery is diminutive along the entirety of its course. IMPRESSION:1.No acute intracranial abnormality.2.No proximal branch arterial occlusion or high-grade focal stenosis within the head and neck. Signed: Talya Mcelroy [facility] Verified Date/Time: 07/08/2020 19:26:58 brain without 2020-07-08 Interface, External [facility] IV contrast 19:26:00 Ris In - 07/08/2020 - Ct dical 7:29 PM [facility] REPORT MR, BRAIN, WITHOUT CONTRAST, MR, MRA, BRAIN, WITHOUT CONTRAST, MR, MRA, NECK, WITHOUT IV CONTRAST INDICATION: Unlisted Reason for Examtingling/numbne ss TECHNIQUE: Multiplanar, multisequence MR imaging of the brain without intravenous contrast.MRA of the head utilizing 3-D ilvg-gp-rxtpaz technique, with 3-D reconstructions.MRA of the neck utilizing 2-D and 3-D xprx-xd-tadjwl technique, with 3-D reconstructions. COMPARISON: None FINDINGS: MRI Brain:Intracranial: No intracranial hemorrhage. No restricted diffusion to suggest acute infarct. No mass effect. No hydrocephalus. Sinuses: No evidence of sinusitis. Mastoids are clear. Orbits: Globes are intact. Calvarium \T\ scalp: Unremarkable. MRA Head:There is no evidence of intracranial aneurysm, focal stenosis, or major branch vessel occlusion. Diminutive left vertebral artery terminates in PICA. MRA Neck:The carotid arteries in the neck are patent including their bifurcations. There is antegrade flow in the vertebral arteries in the neck. Left vertebral artery is diminutive along the entirety of its course.
--- NOTE | 2020-07-13 13:49 | RAD REPORT ---
EXAM DESCRIPTION: CT - Ct Stroke Brain Wo Cont - 07/13/2020 1:39 pm CLINICAL HISTORY: Numbness COMPARISON: July 08, 2020 TECHNIQUE: Computed axial tomography of the head was obtained. All CT scans are performed using dose optimization technique as appropriate and may include automated exposure control or mA/KV adjustment according to patient size. FINDINGS: An intracranial bleed is not seen . The ventricles are normal in caliber. No extra-axial fluid collection is noted. Fluid within the sinuses/ mastoids is not seen. IMPRESSION: No acute intracranial abnormality is seen. If patient's symptoms persist MRI of the bra in would be recommended. Dr Whitehead of the emergency room was notified at 1:43 p.m. July 13, 2020
[2020-07-13 13:53] LABS: Basophils % 0.9 % (0-1.3); Lymphocytes % 40.2 % (15.3-44.8); MPV 9.1 fL (7.6-11.3); RBC Red Blood Cell Count 4.86 M/uL (4.33-5.43)
[2020-07-13 13:59] LABS: Protime INR 0.99
[2020-07-13 14:06] LABS: BUN Blood Urea Nitrogen 17 mg/dL (7-18); Bicarbonate 31 mmol/L (21-32); Glucose Level 94 mg/dL (74-106); Potassium 3.5 mmol/L (3.5-5.1); Sodium Level 142 mmol/L (136-145)
--- NOTE | 2020-07-13 14:41 | RAD REPORT ---
EXAM DESCRIPTION: Marcelo Single View07/13/2020 2:06 pm CLINICAL HISTORY: Numbness COMPARISON: July 08, 2020 FINDINGS: The lungs appear clear of acute infiltrate. The heart is normal size IMPRESSION: No acute abnormalities displayed
--- NOTE | 2020-07-13 15:59 | RAD REPORT ---
EXAM DESCRIPTION: CTHead angio07/13/2020 3:38 pm CLINICAL HISTORY: numbness COMPARISON: None TECHNIQUE: CT angiogram of the head was obtained. 3D MIPS reconstruction performed. All CT scans are performed using dose optimization technique as appropriate and may include automated exposure control or mA/KV adjustment according to patient size. FINDINGS: The basilar, internal carotid, anterior cerebral, middle cerebral and posterior cerebral a rteries are normal caliber. An aneurysm is not seen. Hypoplastic left vertebral artery. It appears to terminate into the PICA( a normal variant) A significant stenosis is not noted. IMPRESSION: No acute abnormality displayed
[2020-07-13 16:09] LABS: Barbiturates NEGATIVE (NEGATIVE); Benzodiazepines POSITIVE (NEGATIVE); Cocaine NEGATIVE (NEGATIVE); METHAMPHETAM POSITIVE (NEGATIVE); Methadone NEGATIVE (NEGATIVE); Opiates NEGATIVE (NEGATIVE); Phencyclidine NEGATIVE (NEGATIVE); THC Cannibis POSITIVE (NEGATIVE)
[2020-07-13 16:31] LABS: Urine Blood NEGATIVE (NEG); Urine Glucose NEGATIVE (NEG); Urine Protein NEGATIVE (NEG); Urine pH 8.5 (5.0-7.0)
--- NOTE | 2020-07-13 17:20 | EDPHYS ---
Physician Documentation [facility] Name: Ta Quezada Age: 40 yrs Sex: Male : 1980 Arrival Date: 07/13/2020 Time: 13:10 Bed 7 Private MD: ED Physician Clint Whitehead HPI: 07/14 08:02 This 40 yrs old Male presents to ER via Ambulatory with complaints of kdr Numbness Of Hand. 08:02 The patient presents to the emergency department with weakness of the entire body, kdr generalized weakness, that is mild, that is moderate, a speech or higher order brain function problem, aphasia, that is mild, paresthesias of the left lower extremity, that is mild, left upper extremity, that is mild, right lower extremity, that is mild, right upper extremity, that is mild, Right hand greater than left. Onset: The symptoms/episode began/occurred suddenly, just prior to arrival, this morning. Context: occurred at home, occurred while the patient was asleep, at rest. Associated signs and symptoms: Pertinent positives: paresthesias, weakness. Severity of symptoms: At their worst the symptoms were mild in the emergency department the symptoms have improved mildly. Patient's baseline: Neuro: alert and fully oriented, Motor: no deficits, Ambulation: walks without assistance, Speech: normal, The patient has a previous history of. Current symptoms: paralysis or paresis, of the Both feet and hands with right hand being more prominent, that is mild. The patient has experienced similar episodes in the past, a few times. The patient has been recently seen by a physician: The patient had a complete workup last week when seen her and transferred to [facility] for further evaluation. records were obtained from that facility and it was noted that he was seen and discharged in 14 hours. He had an MRI which was noted ot be unremarkable. The symptoms today are exactly as he had been seen here previously and for which he had had the prior work-up.. Historical: - Allergies: 07/13 13:24 No Known Allergies; ll1 - PMHx: 13:24 Kidney stones; TIA; ll1 - PSHx: 13:24 None; ll1 - Immunization history:: Flu vaccine is not up to date. - Social history:: Smoking status: Patient reports the use of cigarette tobacco products, smokes one-half pack cigarettes per day. ROS: 07/14 08:02 Constitutional: Negative for fever, chills, and weight loss, Eyes: Negative for injury, kdr pain, redness, and discharge, ENT: Negative for injury, pain, and discharge, Neck: Negative for injury, pain, and swelling, Cardiovascular: Negative for chest pain, palpitations, and edema, Respiratory: Negative for shortness of breath, cough, wheezing, and pleuritic chest pain, Abdomen/GI: Negative for abdominal pain, nausea, vomiting, diarrhea, and constipation, Back: Negative for injury and pain, : Negative for injury, bleeding, discharge, and swelling, MS/Extremity: Negative for injury and deformity, Skin: Negative for injury, rash, and discoloration, Psych: Negative for depression, anxiety, suicide ideation, homicidal ideation, and hallucinations, Allergy/Immunology: Negative for hives, rash, and allergies, Endocrine: Negative for neck swelling, polydipsia, polyuria, polyphagia, and marked weight changes, Hematologic/Lymphatic: Negative for swollen nodes, abnormal bleeding, and unusual bruising. Neuro: Positive for tingling, weakness, As noted above. Exam: 07/13 14:04 ECG was reviewed by the Attending Physician. kdr 07/14 08:02 Constitutional: This is a well developed, well nourished patient who is awake, alert, kdr and in no acute distress. Head/Face: Normocephalic, atraumatic. Eyes: Pupils equal round and reactive to light, extra-ocular motions intact. Lids and lashes normal. Conjunctiva and sclera are non-icteric and not injected. Cornea within normal limits. Periorbital areas with no swelling, redness, or edema. Neck: Trachea midline, no thyromegaly or masses palpated, and no cervical lymphadenopathy. Supple, full range of motion without nuchal rigidity, or vertebral point tenderness. No Meningismus. Chest/axilla: Normal chest wall appearance and motion. Nontender with no deformity. No lesions are appreciated. Cardiovascular: Regular rate and rhythm with a normal S1 and S2. No gallops, murmurs, or rubs. Normal PMI, no JVD. No pulse deficits. Respiratory: Lungs have equal breath sounds bilaterally, clear to auscultation and percussion. No rales, rhonchi or wheezes noted. No increased work of breathing, no retractions or nasal flaring. Abdomen/GI: Soft, non-tender, with normal bowel sounds. No distension or tympany. No guarding or rebound. No evidence of tenderness throughout. Back: No spinal tenderness. No costovertebral tenderness. Full range of motion. Skin: Warm, dry with normal turgor. Normal color with no rashes, no lesions, and no evidence of cellulitis. MS/ Extremity: Pulses equal, no cyanosis. Neurovascular intact. Full, normal range of motion. Psych: Awake, alert, with orientation to person, place and time. Behavior, mood, and affect (flat) are within normal limits. Neuro: Orientation: is normal, Mentation: lucid, slow to respond, Memory: is normal, Cranial nerves: grossly normal, Cerebellar function: is grossly normal, Motor: is normal, Sensation: tingling, that is mild, All extremities are effected with the right hand being most effected. This is the same pattern as with the prior weeks presentation. Vital Signs: 07/13 13:20 BP 109 / 65; Pulse 66; Resp 18; Temp 98.3; Pulse Ox 97% ; Weight 74.39 kg; Height 5 ft. ll1 11 in. (180.34 cm); Pain 5/10; 14:30 BP 124 / 85; Pulse 73; Resp 14; Pulse Ox 100% ; sv 15:40 BP 135 / 74; Pulse 68; Resp 19; Pulse Ox 100% ; sv 16:30 BP 122 / 62; Pulse 61; Resp 16; Pulse Ox 95% ; sv 17:30 BP 122 / 67; Pulse 50; Resp 14; Pulse Ox 97% ; sv 13:20 Body Mass Index 22.87 (74.39 kg, 180.34 cm) ll1 NIH Stroke Scale Scores: 13:30 NIHSS Score: 1 iw 13:53 NIHSS Score: 1 kdr MDM: 15:28 ED course: When placed o a non-rebreather, the patient's symptoms largely resolved. kdr 17:19 Patient medically screened. kdr 07/14 08:02 Data reviewed: vital signs, nurses notes, lab test result(s), radiologic studies. kdr Counseling: I had a detailed discussion with the patient and/or guardian regarding: the historical points, exam findings, and any diagnostic results supporting the discharge/admit diagnosis, lab results, radiology results, the need for outpatient follow up. ED course: The patient greatly improved and largely returned to baseline when the non-rebreather face mask was placed on him. 07/13 13:34 Order name: Basic Metabolic Panel [facility] 07/13 13:34 Order name: CBC with Diff; Complete Time: 17:17 [facility] 07/13 13:34 Order name: Protime (+inr); Complete Time: 17:17 [facility] 07/13 13:34 Order name: Ptt, Activated; Complete Time: 17:17 [facility] 07/13 13:34 Order name: Basic Metabolic Panel; Complete Time: 17:17 [facility] 07/13 13:53 Order name: Glucose, Ancillary Testing; Complete Time: 17:17 [facility] 07/13 13:34 Order name: CT Stroke Brain w/o Contrast; Complete Time: 17:17 [facility] 07/13 13:34 Order name: Stroke CXR 1 View; Complete Time: 17:17 [facility] 07/13 13:34 Order name: EKG; Complete Time: 13:35 [facility] 07/13 13:34 Order name: Accucheck; Complete Time: 13:48 [facility] 07/13 15:18 Order name: CT Head Angio; Complete Time: 17:17 [facility] 07/13 15:18 Order name: UDS; Complete Time: 17:17 [facility] 07/13 15:18 Order name: ETOH Level; Complete Time: 17:17 [facility] 07/13 16:07 Order name: Urine Dipstick--Ancillary (enter results); Complete Time: 17:17 07/13 13:34 Order name: Cardiac monitoring; Complete Time: 13:48 [facility] 07/13 13:34 Order name: EKG - Nurse/Tech; Complete Time: 13:48 [facility] 07/13 13:34 Order name: IV Saline Lock; Complete Time: 13:48 [facility] 07/13 13:34 Order name: Labs collected and sent; Complete Time: 13:48 [facility] 07/13 13:34 Order name: NPO; Complete Time: 13:49 [facility] 07/13 13:34 Order name: O2 Per Protocol; Complete Time: 13:49 [facility] 07/13 13:34 Order name: O2 Sat Monitoring; Complete Time: 13:49 [facility] 07/13 13:34 Order name: Stroke Swallow Screen; Complete Time: 13:57 [facility] EC/26 14:04 Rate is 58 beats/min. Rhythm is regular, Sinus Rhythm with No ectopy, Right bundle kdr branch block. QRS [place] is Normal. TX interval is normal. Clinical impression: NSR w/ Non-specific ST/T Changes. Administered Medications: No medications were administered Disposition: 07/13/20 17:19 Discharged to Home. Impression: Hyperventilation, Stress, not elsewhere classified, Paresthesia of skin, Weakness. - Condition is Stable. - Discharge Instructions: Hyperventilation, Fatigue, Weakness, [id number], Paresthesia, [id number]. - Medication Reconciliation Form, Thank You Letter form. - Follow up: Private Physician; When: 2 - 3 days; Reason: If symptoms return, Further diagnostic work-up, Recheck today's complaints, Continuance of care, Re-evaluation by your physician. - Problem is an acute exacerbation. - Symptoms have improved. - Notes: When you start to feel the tingling, tyr breathing into a small paper lunch sack. This will help the tingling resolved as it did in the Emergency Department NIH Stroke Scale - NIH Stroke Score Date: 07/13/2020 Time: 13:30 Total Score = 1 1a. Level of Consciousness (LOC) - 0(Alert) 1b. Level of Consciousness (LOC) (Year \T\ Age) - 0(Both) 1c. LOC Commands (Open \T\ Closes Eyes/Manager Audit) - 0(Both) 2. Best Gaze (Lateral Gaze Paresis) - 0(Normal) 3. Visual Field Loss - 0(No visual loss) 4. Facial Palsy - 0(Normal) 5a. Left Arm: Motor (10-second hold) - 0(No drift) 5b. Right Arm: Motor (10-second hold) - 0(No drift) 6a. Left Leg: Motor (5-second hold - always test supine) - 0(No drift) 6b. Right Leg: Motor (5-second hold - always test supine) - 0(No drift) 7. Limb Ataxia (finger/nose \T\ heel/holm - test with eyes open) - 0(Absent) 8. Sensory Loss (pinprick arms/legs/face) - 1(Mild to moderate loss) 9. Best Language: Aphasia (description/naming/reading) - 0(No aphasia) 10. Dysarthria (speech clarity - read or repeat words) - 0(Normal) 11. Extinction and Inattention (visual/tactile/auditory/spatial/personal) - 0(No abnormality) Initials: NIH Stroke Scale - NIH Stroke Score Date: 07/13/2020 Time: 13:53 Total Score = 1 1a. Level of Consciousness (LOC) - 0(Alert) 1b. Level of Consciousness (LOC) (Year \T\ Age) - 0(Both) 1c. LOC Commands (Open \T\ Closes Eyes/Manager Audit) - 0(Both) 2. Best Gaze (Lateral Gaze Paresis) - 0(Normal) 3. Visual Field Loss - 0(No visual loss) 4. Facial Palsy - 0(Normal) 5a. Left Arm: Motor (10-second hold) - 0(No drift) 5b. Right Arm: Motor (10-second hold) - 0(No drift) 6a. Left Leg: Motor (5-second hold - always test supine) - 0(No drift) 6b. Right Leg: Motor (5-second hold - always test supine) - 0(No drift) 7. Limb Ataxia (finger/nose \T\ heel/holm - test with eyes open) - 0(Absent) 8. Sensory Loss (pinprick arms/legs/face) - 1(Mild to moderate loss) 9. Best Language: Aphasia (description/naming/reading) - 0(No aphasia) 10. Dysarthria (speech clarity - read or repeat words) - 0(Normal) 11. Extinction and Inattention (visual/tactile/auditory/spatial/personal) - 0(No abnormality) Initials: kdr Signatures: Dispatcher [employer] [facility] Mariam Bello RN RN Clint Russell MD MD kdr Lui Hdez RN RN ll1 Corrections: (The following items were deleted from the chart) 17:43 17:19 07/13/2020 17:19 Discharged to Home. Impression: Hyperventilation; sv Stress, not elsewhere classified; Paresthesia of skin; Weakness. Condition is Stable. Forms are Medication Reconciliation Form, Thank You Letter, Antibiotic Education, Prescription Opioid Use. Follow up: Private Physician; When: 2 - 3 days; Reason: If symptoms return, Further diagnostic work-up, Recheck today's complaints, Continuance of care, Re-evaluation by your physician. Problem is an acute exacerbation. Symptoms have improved. kdr
--- NOTE | 2020-07-13 17:20 | ER ---
Nurse's Notes [facility] [place] [facility] Name: Ta Quezada Age: 40 yrs Sex: Male : 1980 Arrival Date: 07/13/2020 Time: 13:10 Bed 7 Private MD: Diagnosis: Hyperventilation;Stress, not elsewhere classified;Paresthesia of skin;Weakness Presentation: 07/13 13:20 Chief complaint: Patient states: Unable to speak well after taking a nap today. 12:05 ll1 his stated he couldn't get his words out, and couldn't remember talking on the phone. Reports numbness to right arm and both feet. Similar episode last weekend, that he got checked out for Wednesday. Transferred to [facility], discharged home Wednesday. Coronavirus screen: Client denies travel out of the [place] in the last 14 days. At this time, the client does not indicate any symptoms associated with coronavirus-19. Ebola Screen: Patient denies travel to an Ebola-affected area in the 21 days before illness onset. Initial Sepsis Screen: Does the patient meet any 2 criteria? No. Patient's initial sepsis screen is negative. Risk Assessment: Do you want to hurt yourself or someone else? Patient reports no desire to harm self or others. Onset of symptoms was July 13, 2020. 13:20 Method Of Arrival: Ambulatory ll1 13:20 Acuity: RENE 3 ll1 13:30 Onset of symptoms was July 13, 2020 at 11:30. iw 13:30 No acute neurological deficit is noted. Pre-hospital glucose is not applicable to this sv patient. 13:30 Initial Sepsis Screen: Does the patient have a suspected source of infection? No. sv Patient's initial sepsis screen is negative. Triage Assessment: 13:30 The onset of the patients symptoms was July 13, 2020 at 11:30. sv Stroke Activation: Symptom onset < 3 hours Physician: Stroke Attending; Name: N/A; Notified At: 13:30; Arrived At: N/A Physician: Chief Stroke Resident; Name: N/A; Notified At: 13:30; Arrived At: N/A Physician: Stroke Resident; Name: N/A; Notified At: 13:30; Arrived At: N/A Physician: ED Attending; Name: Dr. Whitehead; Notified At: 13:30; Arrived At: 13:30 Physician: ED Resident; Name: N/A; Notified At: 13:30; Arrived At: N/A Historical: - Allergies: 13:24 No Known Allergies; ll1 - PMHx: 13:24 Kidney stones; TIA; ll1 - PSHx: 13:24 None; ll1 - Immunization history:: Flu vaccine is not up to date. - Social history:: Smoking status: Patient reports the use of cigarette tobacco products, smokes one-half pack cigarettes per day. Screenin:45 Patient has been NPO before screening. The patient is alert, able to follow commands. sv The patient does not exhibit slurred or garbled speech The patient is not exhibiting difficulty speaking. The patient does not exhibit difficulty understanding words. The patient is able to swallow own secretions with no drooling or need for suction. Patient tolerated one teaspoon of water. No drooling, immediate coughing, gurgling, or clearing of the throat was noted. The patient tolerated 90mL of water. No drooling, immediate coughing, gurgling, or clearing of the throat was noted. The patient passed the bedside swallow screening. Oral medications may be given as ordered. Contact Physician for further diet orders. Provider notified of bedside swallow screening results: Clint Whitehead MD. 13:50 Abuse screen: Denies threats or abuse. Denies injuries from another. Nutritional iw screening: No deficits noted. Tuberculosis screening: No symptoms or risk factors identified. Fall Risk IV access (20 points). Assessment: 13:30 VAN Scoring: Arm Drift: Patients demonstrates NO arm weakness. Patient is VAN Negative. iw 13:30 General: Appears in no apparent distress. Behavior is calm, cooperative. Pain: Denies iw pain. Neuro: Level of Consciousness is awake, alert, obeys commands, Oriented to person, place, time, situation, Moves all extremities. Full function Reports dizziness, numbness in right hand paresthesias in right hand, right foot and left foot Denies weakness in right arm, left arm, right leg and left leg. Cardiovascular: Capillary refill < 3 seconds in bilateral fingers Patient's skin is warm and dry. Respiratory: Respiratory effort is even, unlabored, Respiratory pattern is regular, symmetrical. GI: Abdomen is non-distended. Derm: Skin is intact, is healthy with good turgor. Musculoskeletal: Range of motion: intact in all extremities. 13:33 Reassessment: Dr. Whitehead at [facility] to evaluate pt. Pt transported to CT via wheelchair.iw 13:43 Reassessment: pt back to ER bed 7, lab at [facility], IV inserted to LAC. iw 13:45 Patient has been NPO before screening. The patient is alert, and able to follow sv commands. The patient does not exhibit slurred or garbled speech. The patient is not exhibiting difficulty speaking. The patient does not exhibit difficulty understanding words. The patient is able to swallow own secretions with no drooling or need for suction. Patient tolerated one teaspoon of water. No drooling, immediate coughing, gurgling, or clearing of the throat was noted. The patient tolerated 90mL of water. No drooling, immediate coughing, gurgling, or clearing of the throat was noted. The patient passed the bedside swallow screening. Oral medications may be given as ordered. Contact Physician for further diet orders. Provider notified of bedside swallow screening results: Clint Whitehead MD. 13:45 Reassessment: Last known well 07/13/20 at 1130. sv 13:53 Reassessment: Called to the room by the family. Pt stated having dizziness, right sv forehead headache, right hand numbness, and BLE numbness from the thighs down to the feet. Dr Whitehead called to the bedside. Neuro: Level of Consciousness is awake, alert, obeys commands, Oriented to person, place, time, situation, Weakness in bilateral leg(s). 13:57 Reassessment: Dr Whitehead at the bedside. Dr Whitehead wants NRB not on O2 placed on the sv pt for hyperventilation. 14:36 Reassessment: Dr Whitehead to the bedside. sv 15:13 Reassessment: Dr Whitehead at bedside. sv 15:20 Reassessment: Patient appears in no apparent distress at this time. Patient and/or sv family updated on plan of care and expected duration. Pain level reassessed. Patient is alert, oriented x 3, equal unlabored respirations, skin warm/dry/pink. Patient states feeling better. Patient states symptoms have improved. 15:24 Reassessment: Pt waiting on CT angio before disposition. sv 17:43 Reassessment: Patient appears in no apparent distress at this time. Patient and/or sv family updated on plan of care and expected duration. Pain level reassessed. Patient is alert, oriented x 3, equal unlabored respirations, skin warm/dry/pink. Patient states feeling better. Patient states symptoms have improved. Vital Signs: 13:20 BP 109 / 65; Pulse 66; Resp 18; Temp 98.3; Pulse Ox 97% ; Weight 74.39 kg; Height 5 ft. ll1 11 in. (180.34 cm); Pain 5/10; 14:30 BP 124 / 85; Pulse 73; Resp 14; Pulse Ox 100% ; sv 15:40 BP 135 / 74; Pulse 68; Resp 19; Pulse Ox 100% ; sv 16:30 BP 122 / 62; Pulse 61; Resp 16; Pulse Ox 95% ; sv 17:30 BP 122 / 67; Pulse 50; Resp 14; Pulse Ox 97% ; sv 13:20 Body Mass Index 22.87 (74.39 kg, 180.34 cm) ll1 NIH Stroke Scale Scores: 13:30 NIHSS Score: 1 iw 13:53 NIHSS Score: 1 kdr ED Course: 13:10 Patient arrived in ED. mr 13:23 Triage completed. ll1 13:24 Arm band placed on Patient placed in an exam room, on a stretcher. ll1 13:32 Benton Swenson NP is PHCP. pm1 13:32 Clint Whitehead MD is Attending Physician. pm1 13:37 Mariam Bello RN is Primary Nurse. sv 13:39 CT Stroke Brain w/o Contrast In Process Unspecified. EDMS 13:40 Patient has correct armband on for positive identification. Bed in low position. Call sv light in reach. Side rails up X2. potline monitor on. Pulse ox on. NIBP on. 13:43 Inserted saline lock: 20 gauge in left antecubital area, using aseptic technique. sv 13:45 Initial lab(s) drawn, by me, sent to lab. sv 13:57 Basic Metabolic Panel Sent. sv 14:05 called and spoke with SAYRA De Jesus from the [facility] to page the eb neurologist workers compensation adjuster for the [facility] for patient consultation. JGuero says he will page Dr. Mcpherson and call us right back. 14:06 Stroke CXR 1 View In Process Unspecified. EDMS 14:[address] Mcpherson the neurologist workers compensation adjuster for [facility] with Dr. sirisha Whitehead for patient transfer consultation. 15:38 CT Head Angio In Process Unspecified. EDMS 15:58 Urine collected: clean catch specimen, clear, forrest colored. mt 17:42 No provider procedures requiring assistance completed. IV discontinued, intact, sv bleeding controlled, No redness/swelling at site. Pressure dressing applied. Administered Medications: No medications were administered Outcome: 17:19 Discharge ordered by MD. kdr 17:43 Discharged to home ambulatory, with family. sv 17:43 Condition: stable 17:43 Discharge instructions given to patient, Instructed on discharge instructions, follow up and referral plans. Demonstrated understanding of instructions, follow-up care. 17:43 Patient left the ED. sv NIH Stroke Scale - NIH Stroke Score Date: 07/13/2020 Time: 13:30 Total Score = 1 1a. Level of Consciousness (LOC) - 0(Alert) 1b. Level of Consciousness (LOC) (Year \T\ Age) - 0(Both) 1c. LOC Commands (Open \T\ Closes Eyes/Paper Reclaiming Machine Operator) - 0(Both) 2. Best Gaze (Lateral Gaze Paresis) - 0(Normal) 3. Visual Field Loss - 0(No visual loss) 4. Facial Palsy - 0(Normal) 5a. Left Arm: Motor (10-second hold) - 0(No drift) 5b. Right Arm: Motor (10-second hold) - 0(No drift) 6a. Left Leg: Motor (5-second hold - always test supine) - 0(No drift) 6b. Right Leg: Motor (5-second hold - always test supine) - 0(No drift) 7. Limb Ataxia (finger/nose \T\ heel/holm - test with eyes open) - 0(Absent) 8. Sensory Loss (pinprick arms/legs/face) - 1(Mild to moderate loss) 9. Best Language: Aphasia (description/naming/reading) - 0(No aphasia) 10. Dysarthria (speech clarity - read or repeat words) - 0(Normal) 11. Extinction and Inattention (visual/tactile/auditory/spatial/personal) - 0(No abnormality) Initials: NIH Stroke Scale - NIH Stroke Score Date: 07/13/2020 Time: 13:53 Total Score = 1 1a. Level of Consciousness (LOC) - 0(Alert) 1b. Level of Consciousness (LOC) (Year \T\ Age) - 0(Both) 1c. LOC Commands (Open \T\ Closes Eyes/Paper Reclaiming Machine Operator) - 0(Both) 2. Best Gaze (Lateral Gaze Paresis) - 0(Normal) 3. Visual Field Loss - 0(No visual loss) 4. Facial Palsy - 0(Normal) 5a. Left Arm: Motor (10-second hold) - 0(No drift) 5b. Right Arm: Motor (10-second hold) - 0(No drift) 6a. Left Leg: Motor (5-second hold - always test supine) - 0(No drift) 6b. Right Leg: Motor (5-second hold - always test supine) - 0(No drift) 7. Limb Ataxia (finger/nose \T\ heel/holm - test with eyes open) - 0(Absent) 8. Sensory Loss (pinprick arms/legs/face) - 1(Mild to moderate loss) 9. Best Language: Aphasia (description/naming/reading) - 0(No aphasia) 10. Dysarthria (speech clarity - read or repeat words) - 0(Normal) 11. Extinction and Inattention (visual/tactile/auditory/spatial/personal) - 0(No abnormality) Initials: [facility] Signatures: Dispatcher [employer] Mariam Hendrix RN Clint Montalvo MD MD [facility] Ginette Bey Irene RN Benton So, PARK[employer] GERONTOLOGY AIDE pm1 Ramy, [facility] Eloise Huang Lynsay RN RN ll1 Corrections: (The following items were deleted from the chart) 13:52 13:43 Inserted saline lock: 20 gauge in left antecubital area, using aseptic sv technique. 15:21 13:57 Reassessment: Dr Whitehead at the bedside sv
[2020-07-13 17:52] VITALS: TEMP 98.3
[2020-07-13 17:57] VITALS: BP 122/67; O2SAT 97
== END 2020-07-13 17:43 | disposition home or self-care (01) ==
LOC: ER 13:06
DX: R06.4 Hyperventilation (principal); F43.9 Reaction to severe stress, unspecified; R20.2 Paresthesia of skin; F17.210 Nicotine dependence, cigarettes, uncomplicated
CPT/HCPCS: 36415; 70450; 70496; 71045; 80048; 80307; 80320; 81003; 82947; 85025; 85610; 85730; 93005; 99284; Q9967

== ENCOUNTER 2020-11-04 05:34 | Inpatient (IN) | payer SELFPAY ==
--- OUTSIDE RECORDS SUMMARY | 2020-11-04 05:37 | XMS REPORT | Summary of Care ---
:1980 Author Organization [facility] Address [address] [place] [id number] Care Team Providers Name Role Phone Lexus Garcia Primary Care Provider Reason for Visit Reason Comments Rx Concern/Question Notification Encounter Details Date Type Department Care Team Description 08/13/2020 Telephone [facility] Boo Cisneros, Rx Con cern/Question; Neurology-Trudy GUAMAN Notification [address] [place], [place] [address] Drive, [address] [place] [id number] Allergies Not on Filedocumented as of this encounter (statuses as of 08/13/2020) Medications Medication Sig Dispensed Refills Start Date End Date Status aspirin 81 mg chewable Take 81 mg by 0 07/08/2020 Active tablet mouth. documented as of this encounter (statuses as of 08/13/2020) Active Problems Not on filedocumented as of this encounter (statuses as of 08/13/2020) Social History Tobacco Use Types Packs/Day Years Used Date Current Every Day Smoker Cigarettes 0.25 Sta rted: 1997 Smokeless Tobacco: Never Used Sex Assigned at Date Recorded Not on file COVID-19 Exposure Response Date Recorded In the last month, have you been in contact with No / Unsure 08/06/2020 8:51 AM CDT someone who was confirmed or suspected to have Coronavirus / COVID-19? documented as of this encounter Last Filed Vital Signs Not on filedocumented in this encounter Miscellaneous Notes Telephone Encounter - Sharon De La Cruz LVN - 08/13/2020 1:35 PM CDTDrAshley Cisneros, Patient is calling wanting to let you know his PCP prescribed Prozac for him. He would like to know if that will interfere with the event monitor? Please review and advise. elephone Encounter - Jannette Ashraf - 08/13/2020 10:12 AM CDTPatient calling to check on status of event monitor. Informed patient I would reach out to cardio toget him a date to get the event monitor. Patient also wanted to inform Dr. Cisneros that his PCP prescribed him prozac for his anxiety. However his PCP wants to make sure that taking prozac wont affect the event monitor. Please advise. documented in this encounter Plan of Treatment Health Maintenance Due Date Last Done Comments PNEUMOCOCCAL 0-64 YEARS COMBINED SERIES (1 of 1 - 1985 PPSV23) Depression Screening 1991 DTaP,Tdap,and Td Vaccines (1 - Tdap) 1998 PAP SMEAR 2000 Breast Cancer Screening (MAMMOGRAM) 2019 INFLUENZA VACCINE (#1) 2020 documented as of this encounter Results Not on filedocumented in this encounter
--- OUTSIDE RECORDS SUMMARY | 2020-11-04 05:37 | XMS REPORT | Continuity of Care Document ---
:1980 Author Organization [facility] t Address [address] [place] [address] Care Team Providers Name Role Phone Pcp MD Primary Care Physician Unavailable Doctor Unassigned, Name Attending Clinician Unavailable Blayne GUAMAN, Nikhil Attending Clinician Attila Lopez MD Attending Clinician Mague GUAMAN, Sonia Attending Clinician Unavailable Javier Calderon MD Attending Clinician Problems Condition Condition Condition Status Onset Resolution Last Treating Co mments Source Name Details Category Date Date Treatment Clinician Date Tingling Tingling [facility] T[facility] Tingling Disease [facility] Allergies, Adverse Reactions, Alerts This patient has no known allergies or adverse reactions. Social History Social Habit Start Date Stop Date Quantity Comments Source Sex Assigned At [facility] Tobacco use and 2020-07-08 2020-07-08 Never used [facility] exposure 00:00:00 00:00:00 [facility] Center Smoking Status Start Date Stop Date Source Current every day smoker 2020-07-08 00:00:00 [facility] Medications Ordered Filled Start Stop Current Ordering Indication Dosage Frequency Signature Comments Components Source Medication Medication Date Date Medication? Clinician (SIG) Name Name aspirin 81 2020- No 81mg QD Take [address] [facility] chewable 07-08 tablet (81 L ukes - tablet 00:00: 23:59 mg total) Medic al 00 :00 by mouth Center daily. Vital Signs Vital Name Observation Time Observation Value Comments Source Systolic blood 2020-07-08 20:00:00 117 mm[Hg] [facility] Diastolic blood 2020-07-08 20:00:00 74 mm[Hg] [facility] S t [facility] Heart rate 2020-07-08 20:00:00 50 /min [facility] Body temperature 2020-07-08 20:00:00 36.83 [place] [facility] Respiratory rate 2020-07-08 20:00:00 17 /min [facility] Oxygen saturation in 2020-07-08 20:00:00 98 /min [facility] Arterial blood by Medical Ce nter Pulse oximetry Procedures Procedure Date / Time Performed Performing Clinician [facility] e MR BRAIN WITHOUT IV 2020-07-08 18:07:00 Bowser, [facility] MRA HEAD WITHOUT IV 2020-07-08 18:07:00 Bowser, [facility] MRA NECK WITHOUT IV 2020-07-08 18:07:00 Bowser, [facility] Plan of Care Planned Activity Planned Date Details Comments Source Future Scheduled 2020-06-18 INFLUENZA VACCINE (#1) [facility] Test 00:00:00 [code = INFLUENZA Medical Ce nter VACCINE (#1)] Future Scheduled 2014 Lipid panel [facility] - Test 00:00:00 (procedure) [code = [facility] Center [id number]] Future Scheduled [address] [facility] - Test 00:00:00 0-64 YRS (1 of 1 - Medical C enter PPSV23) [code = PNEUMOCOCCAL VACCINE 0-64 YRS (1 of 1 - PPSV23)] Encounters Start End Encounter Admission Attending Care Care Encounter Source Date/Time Date/Time Type Type Clinicians Facility Department ID 2020-09-06 2020-09-06 Orders Doctor RODRIGUEZ [id number] 00:00:00 00:00:00 Only Unassigned, PARVIN [id number] [facility] [id number] 2020-08-18 2020-08-18 Orders Doctor JENNIFER [id number] 00:00:00 00:00:00 Only Unassigned, PARVIN [id number] [place] [facility] [id number] 2020-08-06 2020-08-14 Office Blayne [facility] [id number] 08:52:45 13:22:47 Visit Boo Yates [id number] [place] [id number] Profarmando [id number] [facility] 092 Building Results Test Description Test Time Test Comments Results Result [facility] e Comments MR, BRAIN, 2020-07-08 Unlisted FINAL REPORT WITHOUT CONTRAST 19:26:00 Reason for PATIENT ID: Exam - Click [id number] MR, BRAIN, Yes and Enter WITHOUT CONTRAST, Reason MR, MRA, BRAIN, Below->YesUnli WITHOUT CONTRAST, sted Reason MR, MRA, NECK, for WITHOUT IV CONTRAST Exam->tingling INDICATION: /numbness Unlisted Reason for Examtingling/numbne ss TECHNIQUE: Multiplanar, multisequence MR imaging of the brain without intravenous contrast.MRA of the head utilizing 3-D jixh-ok-kbzgul technique, with 3-D reconstructions.MRA of the neck utilizing 2-D and 3-D ieqy-he-glzqot technique, with 3-D reconstructions. COMPARISON: None FINDINGS: [...] Talya Mcelroy MDReport Verified Date/Time: 07/08/2020 19:26:58 , MRA, BRAIN, 2020-07-08 Unlisted FINAL REPORT WITHOUT CONTRAST 19:26:00 Reason for PATIENT ID: Exam - Click [id number] MR, BRAIN, Yes and Enter WITHOUT CONTRAST, Reason MR, MRA, BRAIN, Below->YesUnli WITHOUT CONTRAST, sted Reason MR, MRA, NECK, for WITHOUT IV CONTRAST Exam->tingling INDICATION: , numbness Unlisted Reason for Examtingling/numbne ss TECHNIQUE: Multiplanar, multisequence MR imaging of the brain without intravenous contrast.MRA of the head utilizing 3-D ozgh-jo-dgzqcm technique, with 3-D reconstructions.MRA of the neck utilizing 2-D and 3-D yjkp-at-wxfgbu technique, with 3-D reconstructions. COMPARISON: None FINDINGS: [...] Talya Mcelroy MDReport Verified Date/Time: 07/08/2020 19:26:58 , MRA, NECK, 2020-07-08 Unlisted FINAL REPORT WITHOUT IV 19:26:00 Reason for PATIENT ID: CONTRAST Exam - Click [id number] MR, BRAIN, Yes and Enter WITHOUT CONTRAST, Reason MR, MRA, BRAIN, Below->YesUnli WITHOUT CONTRAST, sted Reason MR, MRA, NECK, for WITHOUT IV CONTRAST Exam->tingling INDICATION: , numbness Unlisted Reason for Examtingling/numbne ss TECHNIQUE: Multiplanar, multisequence MR imaging of the brain without intravenous contrast.MRA of the head utilizing 3-D aqnd-yx-hombzm technique, with 3-D reconstructions.MRA of the neck utilizing 2-D and 3-D tues-hr-aopvts technique, with 3-D reconstructions. COMPARISON: None FINDINGS: [...] the head and neck. Signed: Talya Mcelroy MDReprosa isela Verified Date/Time: 07/08/2020 19:26:58 head without 2020-07-08 Interface, External [facility] IV contrast 19:26:00 Ris In - 07/08/2020 - La dical 7:29 PM CDTFINAL Center REPORT MR, BRAIN, WITHOUT CONTRAST, MR, MRA, BRAIN, WITHOUT CONTRAST, MR, MRA, NECK, WITHOUT IV CONTRAST INDICATION: Unlisted Reason for Examtingling/numbne ss TECHNIQUE: Multiplanar, multisequence MR imaging of the brain without intravenous contrast.MRA of the head utilizing 3-D ldxa-qu-dblezt technique, with 3-D reconstructions.MRA of the neck utilizing 2-D and 3-D dklc-ae-tjsbgf technique, with 3-D reconstructions. COMPARISON: None FINDINGS: [...] Signed: Talya Mcelroy Verified Date/Time: 07/08/2020 19:26:58 neck without 2020-07-08 Interface, External [facility] IV contrast 19:26:00 Ris In - 07/08/2020 - La dical 7:29 PM CDTFINAL Center REPORT MR, BRAIN, WITHOUT CONTRAST, MR, MRA, BRAIN, WITHOUT CONTRAST, MR, MRA, NECK, WITHOUT IV CONTRAST INDICATION: Unlisted Reason for Examtingling/numbne ss TECHNIQUE: Multiplanar, multisequence MR imaging of the brain without intravenous contrast.MRA of the head utilizing 3-D wmbq-ke-xpnrcs technique, with 3-D reconstructions.MRA of the neck utilizing 2-D and 3-D sboa-dc-jepsns technique, with 3-D reconstructions. COMPARISON: None FINDINGS: [...] Signed: Talya Mcelroy Verified Date/Time: 07/08/2020 19:26:58 brain without 2020-07-08 Interface, External [facility] IV contrast 19:26:00 Ris In - 07/08/2020 - La dical 7:29 PM CDTFINAL Center REPORT MR, BRAIN, WITHOUT CONTRAST, MR, MRA, BRAIN, WITHOUT CONTRAST, MR, MRA, NECK, WITHOUT IV CONTRAST INDICATION: Unlisted Reason for Examtingling/numbne ss TECHNIQUE: Multiplanar, multisequence MR imaging of the brain without intravenous contrast.MRA of the head utilizing 3-D tyni-dv-lggpsl technique, with 3-D reconstructions.MRA of the neck utilizing 2-D and 3-D pqoy-sc-xelyem technique, with 3-D reconstructions. COMPARISON: None FINDINGS: [...]
--- OUTSIDE RECORDS SUMMARY | 2020-11-04 05:37 | XMS REPORT | Summary of Care ---
:1980 Author Organization [facility] Address [address] [place] [address] Care Team Providers Name Role Phone Lexus Garcia Primary Care Provider Encounter Details Date Type Department Care Team Description 08/18/2020 Orders Only [facility] Doctor Unassigned, No [address] [facility] [place] [address] [address] [place] [address] Allergies Not on Filedocumented as of this encounter (statuses as of 08/18/2020) Medications Medication Sig Dispensed Refills Start Date End Date Status aspirin 81 mg chewable Take 81 mg by 0 07/08/2020 Active tablet mouth. documented as of this encounter (statuses as of 08/18/2020) Active Problems Not on filedocumented as of this encounter (statuses as of 08/18/2020) Social History Tobacco Use Types Packs/Day Years [...] Signs Not on filedocumented in this encounter Plan of Treatment Health Maintenance Due Date Last Done Comments PNEUMOCOCCAL 0-64 YEARS COMBINED SERIES (1 of - 1985 PPSV23) Depression Screening 1991 DTaP,Tdap,and Td Vaccines (1 - Tdap) 1998 PAP SMEAR 2000 Breast Cancer Screening (MAMMOGRAM) 2019 INFLUENZA VACCINE (#1) 2020 documented as of this encounter Procedures Procedure Name Priority Date/Time Associated Diagnosis Comme nts EXTERNAL PROVIDER Routine 08/18/2020 12:01 AM CDT RECORDS documented in this encounter Results Not on filedocumented in this encounter
--- OUTSIDE RECORDS SUMMARY | 2020-11-04 05:37 | XMS REPORT | Clinical Summary ---
:1980 Author Organization [facility] Address [address] [place] [address] Care Team Providers Name Role Phone Pcp, Primary Care Provider Unavailable Allergies No Known Allergies Medications Medication Sig Dispensed Refills Start Date End Date Status aspirin 81 MG Take 1 tablet (81 0 07/08/2020 021 Active chewable tablet mg total) by mouth daily. Active Problems Problem Noted Date Tingling of right upper extremity 07/08/2020 Tingling 07/08/2020 Encounters Date Type Specialty Care Team Description 07/08/2020 Hospital Encounter [facility] Mague Aiken, MD Javier Bustamante Celestine, MD 07/08/2020 Travel after 11/04/2019 Social History Tobacco Use Types Packs/Day Years Used Date Current Every Day Smoker Smokeless Tobacco: Never Used Sex Assigned at Date Recorded Not on file Last Filed Vital Signs Vital Sign Reading Time Taken Comments Blood Pressure 117/74 07/08/2020 8:00 PM CDT [...] Due Date Last Done Comments PNEUMOCOCCAL VACCINE 0-64 YRS (1 of 1 - PPSV23) 1985 LIPID PANEL 2014 INFLUENZA VACCINE (#1) 2020 [...] are i n the results section. after 11/04/2019 Results MR brain without IV contrast (07/08/2020 6:07 PM CDT) Specimen Narrative Performed At FINAL REPORT [facility] MR, BRAIN, WITHOUT CONTRAST, MR, MRA, BR AIN, WITHOUT CONTRAST, MR, MRA, NECK, WITHOUT IV CONTRAST INDICATION: Unlisted Reason for Exam tingling/numbness TECHNIQUE: Multiplanar, multisequence MR imaging of the brain without intravenous contrast. MRA of the head utilizing 3-D time-of-fl ight technique, with 3-D reconstructions. MRA of the neck utilizing 2-D and 3-D ti mb-wb-zlymsk technique, with 3-D reconstructions. COMPARISON: None FINDINGS: [...] Talya Mcelroy MD Report Verified Date/Time: 07/08/2020 19:26:58 Procedure Note Interface, External Ris In [...] the neck utilizing 2-D and 3-D ti dh-zn-fzcxgp technique, with 3-D reconstructions. COMPARISON: None FINDINGS: [...] Talya Mcelroy MD Report Verified Date/Time: 07/08/2020 9:26:58 Performing Organization Address City/State/Zipcode Phone Number [facility] MRA neck without IV contrast (07/08/2020 6:07 PM CDT) Specimen Narrative Performed At FINAL REPORT [facility] MR, BRAIN, WITHOUT CONTRAST, MR, MRA, BR AIN, WITHOUT CONTRAST, MR, MRA, NECK, WITHOUT IV CONTRAST INDICATION: Unlisted Reason for Exam tingling/numbness TECHNIQUE: Multiplanar, multisequence MR imaging of the brain without intravenous contrast. MRA of the head utilizing 3-D time-of-fl ight technique, with 3-D reconstructions. MRA of the neck utilizing 2-D and 3-D ti el-az-lgowqu technique, with 3-D reconstructions. COMPARISON: None FINDINGS: [...] Talya Mcelroy MD Report Verified Date/Time: 07/08/2020 19:26:58 Procedure Note Interface, External Ris In [...] the neck utilizing 2-D and 3-D ti ib-sn-ykhtvn technique, with 3-D reconstructions. COMPARISON: None FINDINGS: [...] 9:26:58 Performing Organization Address City/State/Zipcode Phone Number [facility] MRA head without IV contrast (07/08/2020 6:07 PM CDT) Specimen Narrative Performed At [facility]AL [facility] MR, BRAIN, WITHOUT CONTRAST, MR, MRA, BR AIN, WITHOUT CONTRAST, MR, MRA, NECK, WITHOUT IV CONTRAST INDICATION: Unlisted Reason for Exam tingling/numbness TECHNIQUE: Multiplanar, multisequence MR imaging of the brain without intravenous contrast. MRA of the head utilizing 3-D time-of-fl ight technique, with 3-D reconstructions. MRA of the neck utilizing 2-D and 3-D ti pp-ji-qxwajo technique, with 3-D reconstructions. COMPARISON: None FINDINGS: [...] Talya Mcelroy MD Report Verified Date/Time: 07/08/2020 19:26:58 Procedure Note Interface, External Ris In [...] the neck utilizing 2-D and 3-D ti gz-cz-npxkgg technique, with 3-D reconstructions. COMPARISON: None FINDINGS: [...] Address City/State/Zipcode Phone Number [facility] RIS after 11/04/2019 Advance Directives For more information, please contact: [phone] Code Status Date Activated Date Inactivated Comments Full Code 07/08/2020 10:30 AM 07/09/2020 1:14 AM This code status was determined by: Patient
--- OUTSIDE RECORDS SUMMARY | 2020-11-04 05:37 | XMS REPORT | Summary of Care ---
:1980 Author Organization [facility] - Health Address [address] [place] [address] Care Team Providers Name Role Phone Marco ALexus dexter Primary Care Provider Encounter Details Date Type Department Care Team Description 09/06/2020 Orders Only [facility] Doctor Unassigned, No [address] [facility] [place] [address] [address] [place] [address] Allergies Not on Filedocumented as of this encounter (statuses as of 09/10/2020) Medications Medication Sig Dispensed Refills Start Date End Date Status aspirin 81 mg chewable Take 81 mg by 0 07/08/2020 Active tablet mouth. 

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
--- OUTSIDE RECORDS SUMMARY | 2020-11-04 05:37 | XMS REPORT | Summary of Care ---
:1980 Author Organization [facility] Address [address] [place] [address] Care Team Providers Name Role Phone Lexus Garcia Primary Care Provider Reason for Visit Reason Comments Rx Concern/Question Notification Encounter Details Date Type Department Care Team Description 08/13/2020 Telephone [facility] Boo Cisneros, Rx Con cern/Question; Neurology-Trudy GUAMAN Notification [address] [place], [place] [address], [address] [place] [phone] Allergies Not on Filedocumented [...]
--- OUTSIDE RECORDS SUMMARY | 2020-11-04 05:37 | XMS REPORT | Summary of Care ---
:1980 Author Organization [facility] Address [address] [place] [address] Care Team Providers Name Role Phone Lexus Garcia Primary Care Provider Reason for Referral (Routine) Status Reason Specialty Diagnoses / Referred By Contact Refe rred To Procedures Contact New Request Diagnoses Paroxysmal tachycardia Transient alteration of awareness Boo Cisneros Procedures EVENT MONITOR 30 DAYS MD Nikhil [address] [place] [address]. [place] [address] Phone: Reason for Visit Reason Comments Syncope (Routine) Status Reason Specialty Diagnoses / Procedures Referred By C ontact Referred To Contact Closed Neurology Diagnoses Dizziness and giddiness Paresthesia of skin Lexus Garcia Procedures CONSULT/REFERRAL NEUROLOGY [address] [place] [address] Phone: Encounter Details Date Type Department Care Team Description 08/06/2020 Office Visit [facility] Boo Cisneros Paroxysmal t achycardia (Primary Dx); Neurology-Trudy Tejeda MD Transient alteration of awareness [address] [place] [address] [place] [phone] Allergies Not on Filedocumented as of this encounter (statuses as of 08/14/2020) Medications Medication Sig Dispensed Refills Start Date End Date Status aspirin 81 mg chewable Take 81 mg by 0 07/08/2020 Active tablet mouth. documented as of this encounter (statuses as of 08/14/2020) Active Problems Not on filedocumented as of this encounter (statuses as of 08/14/2020) Social History Tobacco Use Types Packs/Day Years [...] We did spend 33 minutes of the 60 minute office visit discussing different causes for altered states of consciousness. Boo Cisneros MD Training Technician Neurology HISTORY OF PRESENT ILLNESS: Ta Quezada [...] however, previous drug screen was positive in [facility]'s note from 07/08/2020 RoS: ROS questions to [...] hand. Legs: light touch intact. Coordination: Bilateral Ofkydf-mx-yccc and finger tapping normal. Bilateral RAH motions [...] for F/U w/ primary care physician Gumaro Holguin, [id number] signed by Boo Cisneros MD at 08/14/2020 1:22 PM CDTdocumented in this encounter Plan of Treatment Name Type Priority Associated Diagnoses [facility] 30 DAYS PROCEDURES Routine Paroxysmal [...]
--- OUTSIDE RECORDS SUMMARY | 2020-11-04 05:37 | XMS REPORT | Summary of Care ---
:1980 Author Organization [facility] Address [address] [place] [address] Care Team Providers Name Role Phone Lexus Garcia Primary Care Provider Reason for Referral (Routine) Status Reason Specialty Diagnoses / Referred By Contact Refe rred To Procedures Contact New Request Diagnoses Paroxysmal tachycardia Transient alteration of awareness Boo Cisneros Procedures EVENT MONITOR 30 DAYS MD Nikhil [address] [place] [address]. [place] [address] Phone: Reason for Visit Reason Comments Syncope (Routine) Status Reason Specialty Diagnoses / Procedures Referred By C ontact Referred To Contact Closed Neurology Diagnoses Dizziness and giddiness Paresthesia of skin Lexus Garcia Procedures CONSULT/REFERRAL NEUROLOGY [address] [place] [address] Phone: Encounter Details Date Type Department Care Team Description 08/06/2020 Office Visit [facility] Boo Cisneros Paroxysmal t achycardia (Primary Dx); Neurology-Trudy Tejeda MD Transient alteration of awareness [address] [place] [address] [place] [phone] Allergies Not on Filedocumented [...] altered states of consciousness. Boo Cisneros MD Bag Loader Machine Operator Neurology HISTORY OF PRESENT ILLNESS: Ta Quezada [...] however, previous drug screen was positive in [facility]'s note from 07/08/2020 RoS: ROS [...] hand. Legs: light touch intact. Coordination: Bilateral Pdeiqj-li-iqig and finger tapping normal. Bilateral RAH motions [...] F/U w/ primary care physician Gumaro Holguin [id number] signed by Boo Cisneros MD at 08/07/2020 3:29 PM CDTdocumented in this encounter Plan of Treatment Name Type Priority Associated Diagnoses [facility] 30 DAYS PROCEDURES Routine Paroxysmal [...]
--- OUTSIDE RECORDS SUMMARY | 2020-11-04 05:37 | XMS REPORT | Summary of Care ---
:1980 Author Organization [facility] Address [address] [place] [address] Care Team Providers Name Role Phone Radha Lexus Primary Care Provider Encounter Details Date Type Department Care Team Description 08/06/2020 Orders Only [facility] Doctor Unassigned, No [address] [facility] [place] [address] [address] [place] [address] Allergies Not on Filedocumented as of this encounter (statuses as of 08/06/2020) Medications Not on filedocumented as of this encounter (statuses as of 08/06/2020) Active Problems Not on filedocumented as of this encounter (statuses as of 08/06/2020) Social History Tobacco Use Types Packs/Day Years Used Date Never Assessed Sex Assigned at Date Recorded Not on [...] Health Maintenance Due Date Last Done Comments Depression Screening 1991 DTaP,Tdap,and Td Vaccines (1 - 1998 Tdap) PAP SMEAR 2000 Breast Cancer Screening 2019 (MAMMOGRAM) INFLUENZA VACCINE (#1) 2020 PNEUMOCOCCAL 0-64 YEARS COMBINED Aged Out No longer eligible based on SERIES patient's age to complete this topic documented as of this encounter Procedures Procedure Name Priority Date/Time Associated Diagnosis Comme nts CONSENT/REFUSAL FOR Routine 08/06/2020 8:46 AM CDT DIAGNOSIS AND TREATMENT documented in this encounter Results Not on filedocumented in this encounter
[2020-11-04] MEDS ORDERED: NA CHLORIDE 0.9% 1,000 ML ONE ×2 (05:54→06:40)
[2020-11-04] MEDS ORDERED: FAMOTIDINE 20 MG/2 ML VIAL IV ONE (05:54)
[2020-11-04] MEDS ORDERED: ONDANSETRON 4 MG/2 ML VIAL ONE (05:54)
[2020-11-04 06:05] LABS: Absolute Lymphocytes (CBC) 2.4 K/uL (0.7-4.9); Basophils % 0.2 % (0-1.3); Hematocrit 45.8 % (39.6-49.0); Lymphocytes % 9.7 % (15.3-44.8); MPV 9.1 fL (7.6-11.3); RBC Red Blood Cell Count 5.18 M/uL (4.33-5.43)
[2020-11-04 06:06] LABS: Protime INR 0.95
[2020-11-04] MEDS ORDERED: MORPHINE 4 MG/ML SYR ONE (06:10)
[2020-11-04 06:38] LABS: ALT/SGPT 24 U/L (12-78); AST/SGOT 30 U/L (15-37); Albumin 4.1 g/dL (3.4-5.0); Alkaline Phosphatase 85 U/L (45-117); BUN Blood Urea Nitrogen 23 mg/dL (7-18); Bicarbonate 38 mmol/L (21-32); Bilirubin Direct 0.1 mg/dL (0-0.2); Bilirubin Total 0.5 mg/dL (0.2-1.0); Glucose Level 122 mg/dL (74-106); Lipase 432 U/L (73-393); Magnesium 1.7 mg/dL (1.8-2.4); NT PRO-BNP 641 pg/mL (<125); Potassium 3.1 mmol/L (3.5-5.1); Protein, Total 7.8 g/dL (6.4-8.2); Sodium Level 140 mmol/L (136-145); Troponin (Emerg Dept Use Only) < 0.02 ng/mL (0.0-0.045)
[2020-11-04] MEDS ORDERED: PIPER/TAZO/NS 3.375gm 3.375 GM/100 ML BAG ONE (06:40)
[2020-11-04 06:42] LABS: Blood Morphology Comment NOT SEEN (NOT SEEN); Platelet Estimate ADEQ; Platelets, Giant FEW
[2020-11-04] MEDS ORDERED: KCL 20 MEQ/100 mL IVPB 20 MEQ/100 ML BAG IV ONE (07:14)
[2020-11-04] MEDS ORDERED: MAGNESIUM SULFATE 1 gm IVPB 1 GM/100 ML BAG IV ONE (07:14)
--- NOTE | 2020-11-04 07:33 | RAD REPORT ---
EXAM DESCRIPTION: CT - Abdomen Pelvis W Contrast - 11/04/2020 7:10 am CLINICAL HISTORY: Abd pain;Nausea / vomiting COMPARISON: Abdomen Pelvis W Contrast dated 2016 ; CTSTONE PROTOCOL dated 11/27/2013 TECHNIQUE: Biphasic, helical CT imaging of the abdomen and pelvis was performed following 100 ml non -ionic IV contrast. No oral contrast given. All CT scans are performed using dose optimization technique as appropriate and may include automated exposure control or mA/KV adjustment according to patient size. FINDINGS: No suspicious findings in the lung bases. The liver, spleen, and pancreas show no suspicious findings. Gallbladder and biliary tree are also wi thout suspicious finding. Gallstones can be occult on CT imaging. Symmetric renal function is seen with no hydronephrosis or suspicious renal mass. No pyelonephritis o r acute parenchymal process. No bladder abnormalities. Two small cysts are present in the left kidney . Right adrenal gland is unremarkable. Left adrenal mass is present measuring is largest 2.7 cm. This may be the summation of 2 abutting adrenal masses approximately 20 mm and 13 mm in size. Comparing t he 2016 in 2013 studies the left adrenal findings represent growth over time. There are no calcificat ions. Attenuation value is approximately 32 Hounsfield units. This is a value not sufficient for defi nitive adrenal adenoma diagnosis. Prostate gland is normal size. Calcifications or hyperdense materia l in the central gland have not changed. Fluid-filled stomach is present without wall thickening or mass. Outlet obstruction is not suspected. No dilated small bowel. Several fluid-filled small bowel loops are seen. Hyperdense material in the nondilated colon is probably from ingested medication. No acute colon process seen. No free air, free fluid or inflammatory stranding. No hernia, mass or bulky lymphadenopathy. No suspicious bony findings. IMPRESSION: Contrast enhanced CT abdomen and pelvis showing no emergent finding. A few mildly prominent small bowel loops are present could support nonspecific enteritis. Left adrenal mass(es) has shown growth over time back to 2013 without findings that are definitive fo r adrenal adenoma. Adenoma remains the most likely etiology. Follow-up outpatient CT adrenal protocol study or MRI imaging could be performed.
--- NOTE | 2020-11-04 07:37 | RAD REPORT ---
EXAM DESCRIPTION: CT - Chest For Pe Angio - 11/04/2020 7:10 am CLINICAL HISTORY: CHEST PAIN COMPARISON: No comparisons TECHNIQUE: Dynamically enhanced 3 mm thick images of the chest were obtained during administration o f approximately 150mL Isovue 370 IV contrast. Coronal and oblique MIP reconstruction images were gene rated and reviewed. Exam utilizes a protocol to evaluate the pulmonary arterial tree. All CT scans are performed using dose optimization technique as appropriate and may include automated exposure control or mA/KV adjustment according to patient size. FINDINGS: Pulmonary artery contrast density was diagnostic but not optimal. This finding along with respiratory motion limits far peripheral branch assessment. No pulmonary emboli are identified and no ne suspected. The aorta as imaged shows no acute or suspicious finding. No pericardial thickening or effusion. No infiltrate or mass in the lung parenchyma. No pleural effusion or pleural thickening. No mediastinal or hilar suspicious masses. No chest wall masses or abnormal axillary lymphadenopathy. Circumferential wall thickening involves the entirety of the esophagus. No one focal area of greater mass or wall thickening. No air in the waller of the esophagus. IMPRESSION: No pulmonary emboli identified. Circumferential wall thickening of the entirety of the thoracic esophagus.Correlation is needed with any acute esophagitis findings. Follow up GI consultation will likely be needed for full assessment.
[2020-11-04] MEDS ORDERED: NA CHLORIDE 0.9% 500 ML ONE (07:56)
[2020-11-04 08:00] LABS: SARS-COV-2 RT PCR NEGATIVE (NEGATIVE)
--- NOTE | 2020-11-04 08:11 | ER ---
Nurse's Notes [facility] Name: Ta Quezada Age: 40 yrs Sex: Male : 1980 Arrival Date: 11/04/2020 Time: 05:43 Bed 6 Private MD: Diagnosis: Esophagitis, unspecified;Gastroenteritis;Leukocytosis;Dehydration;Chest Pain Presentation: 11/04 05:30 Chief complaint: EMS states: complaining of vomiting for 2 days diarrhea, feeling tired rr5 and pain on his chest on and off like a shredding pain. abdominal tenderness and having fever. 05:30 Coronavirus screen: Client denies travel out of the [place] in the last 14 days. At this rr5 time, the client does not indicate any symptoms associated with coronavirus-19. Ebola Screen: Patient negative for fever greater than or equal to 101.5 degrees Fahrenheit, and additional compatible Ebola Virus Disease symptoms Patient denies exposure to infectious person. No symptoms or risks identified at this time. 05:30 Method Of Arrival: EMS: [facility] rr5 05:30 Initial Sepsis Screen: Does the patient meet any 2 criteria? No. Patient's initial rr5 sepsis screen is negative. Does the patient have a suspected source of infection? No. Patient's initial sepsis screen is negative. Risk Assessment: Do you want to hurt yourself or someone else? Patient reports no desire to harm self or others. Onset of symptoms was November 04, 2020. Care prior to arrival: Medication(s) given: zofran 2mg/IM. 05:30 Acuity: RENE 3 rr5 Historical: - Allergies: 05:30 No Known Allergies; rr5 - Home Meds: 05:30 None [Active]; rr5 - PMHx: 05:30 Kidney stones; TIA; rr5 - Immunization history:: Adult Immunizations unknown. - Social history:: Smoking status: Patient reports the use of cigarette tobacco products, smokes one-half pack cigarettes per day, Patient/guardian denies using alcohol, street drugs. Screenin:08 Abuse screen: Denies threats or abuse. Denies injuries from another. Nutritional rr5 screening: No deficits noted. Tuberculosis screening: No symptoms or risk factors identified. Fall Risk Total Umana Fall Scale indicates No Risk (0-24 pts). Assessment: 06:08 General: Appears in no apparent distress. uncomfortable, ill, Behavior is cooperative, rr5 appropriate for age, crying, Reports chills for fever for feeling ill for fatigue for. Pain: Complains of pain in chest Pain radiates to abdomen Pain currently is 10 out of 10 on a pain scale. Quality of pain is described as aching, sharp, shredding Pain began gradually, 2-3 days ago. Is intermittent. Neuro: Level of Consciousness is awake, alert, obeys commands, Oriented to person, place, time, situation. Cardiovascular: Capillary refill < 3 seconds Patient's skin is warm and dry. Respiratory: Airway is patent Respiratory effort is even, unlabored, Respiratory pattern is regular, symmetrical. GI: Abdomen is round Pt is actively vomiting bile and black in color Abdomen is tender to palpation Reports lower abdominal pain, upper abdominal pain, nausea, vomiting. : No signs and/or symptoms were reported regarding the genitourinary system. EENT: No signs and/or symptoms were reported regarding the EENT system. Derm: Skin is intact, is healthy with good turgor, Skin temperature is warm. Musculoskeletal: Circulation, motion, and sensation intact. Capillary refill < 3 seconds. 06:11 Reassessment: WBC 24.7 candy from laboratory called, ED provider aware. rr5 06:43 Reassessment: blood will come to draw TS. mg2 06:52 Reassessment: lab came and draw TS. mg2 07:00 Reassessment: RECD REPORT FROM MARYAM DOMINGUEZ. 40YO WM P/W N/V, EMESIS + FOR OCCULT BLOOD. bp PT CURRENTLY IN CT. UOP PENDING. 07:15 Reassessment: PT RETURNED FROM CT. bp 08:00 Reassessment: No changes from previously documented assessment. Patient and/or family bp updated on plan of care and expected duration. Pain level reassessed. Patient is alert, oriented x 3, equal unlabored respirations, skin warm/dry/pink. 10:01 Reassessment: No changes from previously documented assessment. Patient and/or family bp updated on plan of care and expected duration. Pain level reassessed. Patient is alert, oriented x 3, equal unlabored respirations, skin warm/dry/pink. ADMIT IN PROCESS. DR ZAFAR AT B/S. 10:39 Reassessment: PT ON ER HOLD, SEE MEDITECH. bp Vital Signs: 05:30 BP 162 / 77; Pulse 62; Resp 24; Temp 99.3; Pulse Ox 98% ; Weight 82.1 kg; Height 5 ft. rr5 11 in. (180.34 cm); Pain 10/10; 06:42 BP 164 / 82; Pulse 59; Resp 18; Pulse Ox 99% on 3 lpm NC; mg2 07:56 BP 172 / 78; Pulse 54; Resp 17; Pulse Ox 94% ; bp 10:02 BP 166 / 83; Pulse 57; Resp 16; Pulse Ox 97% ; bp 05:30 Body Mass Index 25.24 (82.10 kg, 180.34 cm) rr5 ED Course: 05:30 Arm band placed on right wrist. rr5 05:35 Patient has correct armband on for positive identification. Placed in gown. Bed in low rr5 position. Call light in reach. Side rails up X2. digitizer on. Pulse ox on. NIBP on. 05:35 Warm blanket given. rr5 05:43 Patient arrived in ED. lp1 05:43 Chirag Briones MD is Attending Physician. mh7 05:45 Inserted saline lock: 20 gauge in right antecubital area, using aseptic technique. mg2 Blood collected. 05:47 Den Morin, ANGELICA is Primary Nurse. mg2 06:05 XRAY Chest (1 view) In Process Unspecified. EDMS 06:05 No provider procedures requiring assistance completed. mg2 06:08 Triage completed. rr5 06:45 Notified ED physician of a critical lab result(s). Calcium 12.7. lp1 06:52 COVID swab sent to lab. Flu and/or RSV swab sent to lab. mg2 07:07 Report given to tyron dominguez and donte rn. rr5 07:09 Primary Nurse role handed off by Den Morin, ANGELICA bp 07:09 Donte Montenegro, ANGELICA is Primary Nurse. bp 07:10 CT Chest For PE Angio In Process Unspecified. EDMS 07:10 CT Abd/Pelvis - IV Contrast Only In Process Unspecified. EDMS 08:09 Yousif Zafar is Hospitalizing Provider. mh7 10:41 Patient admitted, IV remains in place. bp Administered Medications: 05:45 Drug: Zofran (Ondansetron) 4 mg Route: IVP; Site: right antecubital; mg2 06:35 Follow up: Response: No adverse reaction mg2 05:46 Drug: Pepcid 20 mg Route: IVP; Site: right antecubital; mg2 06:35 Follow up: Response: No adverse reaction mg2 05:50 Drug: NS 0.9% 1000 ml Route: IV; Rate: 1000 ml; Site: right antecubital; mg2 10:42 Follow up: IV Status: Completed infusion; IV Intake: 1000ml bp 06:00 Drug: morphine 4 mg Route: IVP; Site: right antecubital; mg2 06:34 Follow up: Response: No adverse reaction mg2 06:30 Drug: Zosyn 3.375 grams Route: IVPB; Infused Over: 60 mins; Site: right antecubital; mg2 10:42 Follow up: IV Status: Completed infusion; IV Intake: 100ml bp 06:34 Drug: NS 0.9% 1000 ml Route: IV; Rate: 1000 ml; Site: right antecubital; mg2 10:42 Follow up: IV Status: Completed infusion; IV Intake: 1000ml bp 07:15 Drug: Magnesium Sulfate 1 grams Route: IVPB; Infused Over: 1 hrs; Site: right bp antecubital; 10:41 Follow up: IV Status: Completed infusion; IV Intake: 100ml bp 07:55 Drug: Potassium Chloride 20 mEq Route: IV; Rate: per protocol; Site: right antecubital; bp 10:42 Follow up: IV Status: Completed infusion; IV Intake: 100ml bp Point of Care Testing: Guaiac: 06:05 Emesis Guaiac: Positive; Emesis Hemoccult Control: Pass rr5 Intake: 10:41 IV: 100ml; Total: 100ml. bp 10:42 IV: 100ml; Total: 200ml. bp 10:42 IV: 1000ml; Total: 1200ml. bp 10:42 IV: 100ml; Total: 1300ml. bp 10:42 IV: 1000ml; Total: 2300ml. bp Outcome: 08:10 Decision to Hospitalize by Provider. mh7 10:41 Admitted to ER Hold. Please see [facility] for further documentation. bp 10:41 Condition: stable 10:41 Instructed on the need for admit. 12:17 Patient left the ED. aa5 Signatures: Dispatcher [facility] Tyron Schroeder RN RN aa5 Gracie Mazariegos RN RN lp1 Donte Montenegro RN RN bp Den Morin, ANGELICA RN mg2 Maryam Zeng RN RN rr5 Chirag Briones MD MD mh7 Corrections: (The following items were deleted from the chart) 06:24 06:08 GI: Abdomen is round Pt is actively vomiting bile and black in color Reports rr5 lower abdominal pain, upper abdominal pain, nausea, vomiting, rr5
--- NOTE | 2020-11-04 08:11 | EDPHYS ---
Physician Documentation [facility] Name: Ta Quezada Age: 40 yrs Sex: Male : 1980 Arrival Date: 11/04/2020 Time: 05:43 Bed 6 Private MD: ED Physician Chirag Briones HPI: 11/04 05:52 This 40 yrs old Male presents to ER via Unassigned with complaints of mh7 Nausea/Vomiting. 05:52 The patient presents to the emergency department with nausea, that is moderate, mh7 vomiting, that is intermittent, abdominal pain, of the abdomen diffusely, described as intermittent, and does not radiate. Onset: The symptoms/episode began/occurred 2 day(s) ago. Possible causes: unknown. The symptoms are aggravated by nothing. The symptoms are alleviated by nothing. Associated signs and symptoms: Pertinent positives: abdominal pain, fever, nausea, vomiting, Chest Pain, Pertinent negatives: belching, constipation, flatulence, hematuria. Severity of symptoms: At their worst the symptoms were moderate last night, in the emergency department the symptoms are unchanged. Historical: - Allergies: 05:30 No Known Allergies; rr5 - Home Meds: 05:30 None [Active]; rr5 - PMHx: 05:30 Kidney stones; TIA; rr5 - Immunization history:: Adult Immunizations unknown. - Social history:: Smoking status: Patient reports the use of cigarette tobacco products, smokes one-half pack cigarettes per day, Patient/guardian denies using alcohol, street drugs. ROS: 05:52 Eyes: Negative for injury, pain, redness, and discharge, ENT: Negative for injury, mh7 pain, and discharge, Neck: Negative for injury, pain, and swelling, Back: Negative for injury and pain, : Negative for injury, bleeding, discharge, and swelling, MS/Extremity: Negative for injury and deformity, Skin: Negative for injury, rash, and discoloration, Neuro: Negative for headache, weakness, numbness, tingling, and seizure, Psych: Negative for depression, anxiety, suicide ideation, homicidal ideation, and hallucinations, Allergy/Immunology: Negative for hives, rash, and allergies, Endocrine: Negative for neck swelling, polydipsia, polyuria, polyphagia, and marked weight changes, Hematologic/Lymphatic: Negative for swollen nodes, abnormal bleeding, and unusual bruising. Exam: 05:52 Head/Face: Normocephalic, atraumatic. Eyes: Pupils equal round and reactive to light, mh7 extra-ocular motions intact. Lids and lashes normal. Conjunctiva and sclera are non-icteric and not injected. Cornea within normal limits. Periorbital areas with no swelling, redness, or edema. Neck: Trachea midline, no thyromegaly or masses palpated, and no cervical lymphadenopathy. Supple, full range of motion without nuchal rigidity, or vertebral point tenderness. No Meningismus. Chest/axilla: Normal chest wall appearance and motion. Nontender with no deformity. No lesions are appreciated. Cardiovascular: Regular rate and rhythm with a normal S1 and S2. No gallops, murmurs, or rubs. Normal PMI, no JVD. No pulse deficits. Respiratory: Lungs have equal breath sounds bilaterally, clear to auscultation and percussion. No rales, rhonchi or wheezes noted. No increased work of breathing, no retractions or nasal flaring. 05:52 Back: No spinal tenderness. No costovertebral tenderness. Full range of motion. Skin: Warm, dry with normal turgor. Normal color with no rashes, no lesions, and no evidence of cellulitis. MS/ Extremity: Pulses equal, no cyanosis. Neurovascular intact. Full, normal range of motion. Neuro: Awake and alert, GCS 15, oriented to person, place, time, and situation. Cranial nerves II-XII grossly intact. Motor strength 5/5 in all extremities. Sensory grossly intact. Cerebellar exam normal. Normal gait. 05:52 Constitutional: The patient appears in no acute distress, alert, awake, uncomfortable. 05:52 Abdomen/GI: Inspection: abdomen appears normal, Bowel sounds: normal, in all quadrants, Palpation: moderate abdominal tenderness, in all quadrants, Indicators: McBurney's point is not tender, Faith's sign is negative, Rovsing's sign is negative, Obturator sign is negative, Psoas sign is negative, Liver: no appreciated palpable abnormalities, Hernia: not appreciated. Vital Signs: 05:30 BP 162 / 77; Pulse 62; Resp 24; Temp 99.3; Pulse Ox 98% ; Weight 82.1 kg; Height 5 ft. rr5 11 in. (180.34 cm); Pain 10/10; 06:42 BP 164 / 82; Pulse 59; Resp 18; Pulse Ox 99% on 3 lpm NC; mg2 07:56 BP 172 / 78; Pulse 54; Resp 17; Pulse Ox 94% ; bp 10:02 BP 166 / 83; Pulse 57; Resp 16; Pulse Ox 97% ; bp 05:30 Body Mass Index 25.24 (82.10 kg, 180.34 cm) rr5 MDM: 08:07 Differential diagnosis: Nonspecific abd pain, gastritis, cholecystitis, pancreatitis, mh7 appendicitis, diverticulitis, viral gastroenteritis, gastroenteritis. Data reviewed: vital signs, nurses notes, EMS record, old medical records, lab test result(s), amylase and lipase, cardiac enzymes, CBC, electrolytes, urinalysis, EKG, radiologic studies, CT scan, plain films. Data interpreted: Pulse oximetry: on room air is 96 %. Interpretation: normal. Counseling: I had a detailed discussion with the patient and/or guardian regarding: the historical points, exam findings, and any diagnostic results supporting the discharge/admit diagnosis, the presence of at least one elevated blood pressure reading (>120/80) during this emergency department visit, lab results, radiology results, the need for further work-up and treatment in the hospital. Response to treatment: the patient's symptoms have markedly improved after treatment. Physician consultation: Thang Mcduffie MD regarding patient's condition, and will see patient in inpatient room, would like admission per Dr. Yousif Murrell. 08:10 Patient medically screened. 11/04 05:44 Order name: Basic Metabolic Panel; Complete Time: 06:45 11/04 05:44 Order name: CBC with Diff 11/04 05:44 Order name: LFT's; Complete Time: 06:45 11/04 05:44 Order name: Magnesium; Complete Time: 06:45 11/04 05:44 Order name: NT PRO-BNP; Complete Time: 06:45 11/04 05:44 Order name: PT-INR; Complete Time: 06:18 11/04 05:44 Order name: Troponin (emerg Dept Use Only); Complete Time: 06:45 11/04 05:44 Order name: Lipase; Complete Time: 06:45 11/04 05:45 Order name: Type And Screen; Complete Time: 07:56 7 11/04 05:46 Order name: Blood Culture Adult (2) 7 11/04 05:49 Order name: ETOH Level; Complete Time: 06:20 7 11/04 05:49 Order name: UDS [facility] 11/04 05:44 Order name: XRAY Chest (1 view) [facility] 11/04 06:01 Order name: CT Chest For PE Angio; Complete Time: 07:44 7 11/04 06:01 Order name: CT Abd/Pelvis - IV Contrast Only; Complete Time: 07:44 7 11/04 06:18 Order name: Lactate; Complete Time: 07:16 7 11/04 06:18 Order name: Procalcitonin; Complete Time: 07:16 [facility] 11/04 06:42 Order name: Manual Differential [facility] 11/04 07:26 Order name: ABO/RH no charge; Complete Time: 07:44 EDMS 11/04 07:57 Order name: Urine Dipstick--Ancillary (enter results) 11/04 08:00 Order name: COVID-19/FLU A+B; Complete Time: 08:03 MS 11/04 09:39 Order name: Lactate Sepsis 2 HR Follow-up EDMS 11/04 05:44 Order name: EKG; Complete Time: 05:45 7 11/04 05:44 Order name: Cardiac monitoring; Complete Time: 06:04 7 11/04 05:44 Order name: EKG - Nurse/Tech; Complete Time: 06:04 7 11/04 05:44 Order name: IV Saline Lock; Complete Time: 06:04 [facility] 11/04 05:44 Order name: Labs collected and sent; Complete Time: 06:04 7 11/04 05:44 Order name: O2 Per Protocol; Complete Time: 06:05 7 11/04 05:44 Order name: O2 Sat Monitoring; Complete Time: 06:05 7 11/04 05:49 Order name: Urine Dipstick-Ancillary (obtain specimen); Complete Time: 07:56 mh7 Administered Medications: 05:45 Drug: Zofran (Ondansetron) 4 mg Route: IVP; Site: right antecubital; mg2 06:35 Follow up: Response: No adverse reaction mg2 05:46 Drug: Pepcid 20 mg Route: IVP; Site: right antecubital; mg2 06:35 Follow up: Response: No adverse reaction mg2 05:50 Drug: NS 0.9% 1000 ml Route: IV; Rate: 1000 ml; Site: right antecubital; mg2 10:42 Follow up: IV Status: Completed infusion; IV Intake: 1000ml bp 06:00 Drug: morphine 4 mg Route: IVP; Site: right antecubital; mg2 06:34 Follow up: Response: No adverse reaction mg2 06:30 Drug: Zosyn 3.375 grams Route: IVPB; Infused Over: 60 mins; Site: right antecubital; mg2 10:42 Follow up: IV Status: Completed infusion; IV Intake: 100ml bp 06:34 Drug: NS 0.9% 1000 ml Route: IV; Rate: 1000 ml; Site: right antecubital; mg2 10:42 Follow up: IV Status: Completed infusion; IV Intake: 1000ml bp 07:15 Drug: Magnesium Sulfate 1 grams Route: IVPB; Infused Over: 1 hrs; Site: right bp antecubital; 10:41 Follow up: IV Status: Completed infusion; IV Intake: 100ml bp 07:55 Drug: Potassium Chloride 20 mEq Route: IV; Rate: per protocol; Site: right antecubital; bp 10:42 Follow up: IV Status: Completed infusion; IV Intake: 100ml bp Point of Care Testing: Guaiac: 06:05 Emesis Guaiac: Positive; Emesis Hemoccult Control: Pass rr5 Disposition: 11/04/20 08:10 Hospitalization ordered by Yousif Murrell for Inpatient Admission. Preliminary diagnosis are Esophagitis, unspecified, Gastroenteritis, Leukocytosis, Dehydration, Chest Pain. - Bed requested for Telemetry/MedSurg (Inpatient). - Status is Inpatient Admission. aa5 - Condition is Stable. - Problem is new. - Symptoms have improved. Signatures: Dispatcher [employer] EDMS Stefanie Almaguer Audri RN RN aa5 Donte Montenegro RN RN bp Den Morin RN RN mg2 Abdirashid Zeng RN RN rr5 Chirag Briones MD MD mh7 Corrections: (The following items were deleted from the chart) 07:02 06:06 CORONAVIRUS+MR.LAB.BRZ ordered. EDMO EDMS 07:03 06:06 Influenza Screen (A \T\ B)+BA.LAB.BRZ ordered. EDMO EDMS 10:40 08:10 Hospitalization Ordered by Yousif Murrell for Inpatient Admission. Preliminary bp diagnosis is Esophagitis, unspecified; Gastroenteritis; Leukocytosis; Dehydration; Chest Pain. Bed requested for Telemetry/MedSurg (Inpatient). Status is Inpatient Admission. Condition is Stable. Problem is new. Symptoms have improved. mh7 11:15 10:40 11/04/2020 08:10 Hospitalization Ordered by Yousif Murrell for Inpatient bd Admission. Preliminary diagnosis is Esophagitis, unspecified; Gastroenteritis; Leukocytosis; Dehydration; Chest Pain. Bed requested for [facility] ER HOLD. Status is Inpatient Admission. Condition is Stable. Problem is new. Symptoms have improved. bp 12:17 11:15 11/04/2020 08:10 Hospitalization Ordered by Yousif Murrell for Inpatient aa5 Admission. Preliminary diagnosis is Esophagitis, unspecified; Gastroenteritis; Leukocytosis; Dehydration; Chest Pain. Bed requested for Telemetry/MedSurg (Inpatient). Status is Inpatient Admission. Condition is Stable. Problem is new. Symptoms have improved. bd
[2020-11-04 08:29] LABS: Barbiturates NEGATIVE (NEGATIVE); Benzodiazepines NEGATIVE (NEGATIVE); Cocaine NEGATIVE (NEGATIVE); METHAMPHETAM NEGATIVE (NEGATIVE); Methadone NEGATIVE (NEGATIVE); Opiates POSITIVE (NEGATIVE); Phencyclidine NEGATIVE (NEGATIVE); THC Cannibis POSITIVE (NEGATIVE)
[2020-11-04 09:32] LABS: Urine Blood NEGATIVE (NEG); Urine Glucose NEGATIVE (NEG); Urine Protein NEGATIVE (NEG); Urine Specific Gravity 1.015 (1.005-1.030)
[2020-11-04] MEDS ORDERED: PANTOPRAZOLE 40 MG INJ IVP ONE (10:46)
[2020-11-04] MEDS ORDERED: SODIUM CHLORIDE 0.9% 10ML INJ IV PRN (10:46)
[2020-11-04] MEDS ORDERED: INFLUENZA VACCINE (for 3y+) 0.5 ML DOSE IMVAC ONE (11:00)
[2020-11-04] MEDS ORDERED: CEFEPIME 1 GM/10 ML SYR IV SCH (11:55)
[2020-11-04] MEDS ORDERED: NA CHLORIDE 0.9% 500 ML IV PRN (11:55)
[2020-11-04] MEDS ORDERED: SODIUM CHL 0.9% 1000 ML BAG IV ONE (11:55)
--- NOTE | 2020-11-04 12:05 | RAD REPORT ---
EXAM DESCRIPTION: RAD - Chest Single View - 11/04/2020 6:05 am CLINICAL HISTORY: The patient is 40 years old and is Male; CHEST PAIN TECHNIQUE: Frontal view of the chest. COMPARISON: No relevant prior studies available. FINDINGS: LUNGS: Unremarkable. No consolidation. PLEURAL SPACE: Unremarkable. No pneumothorax. HEART: Unremarkable. No cardiomegaly. MEDIASTINUM: Unremarkable. BONES/JOINTS: Unremarkable. IMPRESSION: No acute cardiopulmonary process. Electronically signed by: Ammy Nuñez MD 11/04/2020 6:25 AM LOG HANDLER Due to temporary technical issues with the PACS/Fluency reporting system, reports are being signed by the in house radiologist without review as a courtesy to ensure prompt reporting. The interpreting r adiologist is fully responsible for the content of the report.
--- NOTE | 2020-11-04 12:38 | P.HP ---
Certification for Inpatient Patient admitted to: Inpatient With expected LOS: >2 Midnights Practitioner: I am a practitioner with admitting privileges, knowledge of patient current condition, hospital course, and medical plan of care. Services: Services provided to patient in accordance with Admission requirements found in Title 42 Section 412.3 of the Code of Federal Regulations Patient History Date of Service: 11/04/20 Reason for admission: Epigastric pain, coffee-ground emesis. History of Present Illness: 40-year-old gentleman with a history of GERD presented to the emergency department with a complaint epigastric pain, nausea and vomiting of 2 days duration. Patient reports he has been experiencing heart collado and dry heaves for close to 5 days now, and have not been able to eat or drink well. He had a coffee-ground emesis last prompting the ED visit. CT abdomen and pelvis done in the emergency department demonstrate esophageal wall thickening suggestive of es ophagitis. Blood work showed severe leukocytosis, lactic acid elevated. Patient is afebrile. Patient hydrated with IV fluid and admitted for further management. Allergies No Known Allergies Allergy (Unverified 12/21/16 20:12) - Past Medical/Surgical History Has patient received pneumonia vaccine in the past: No Diabetic: No -: KIDNEY STONES -: TIA -: Hypertension -: GERD - Family History Mother -: Diabetes, Cancer - Social History Smoking Status: Never smoker Alcohol use: No CD- Drugs: No Place of Residence: Home Review of Systems Other: Except as documented, all other systems reviewed and negative. Physical Examination - Vital Signs Blood Pressure: 166/83 Pulse: 57 Respirations: 16 - Physical Exam General: Alert, In no apparent distress, Oriented x3 HEENT: Mucous membr. moist/pink, EOMI, Sclerae nonicteric Neck: Supple, JVD not distended Respiratory: Clear to auscultation bilaterally, Normal air movement Cardiovascular: No edema, Regular rate/rhythm, Normal S1 S2, No murmurs Capillary refill: <2 Seconds Gastrointestinal: Normal bowel sounds, Soft and benign, Non-distended, Tenderness (Epigastrium) Musculoskeletal: No swelling, No tenderness Integumentary: No rashes ( ), No erythema Neurological: Normal speech, Normal strength at 5/5 x4 extr, Cranial nerves 3-12 intact - Studies Laboratory Data (last 24 hrs) 11/04/20 05:45: PT 11.2, INR 0.95 11/04/20 05:45: WBC 24.7 H*, Hgb 15.0, Hct 45.8, Plt Count 316 11/04/20 05:45: Sodium 140, Potassium 3.1 L, BUN 23 H, Creatinine 1.29, Glucose 122 H, Magnesium 1.7 L, Total Bilirubin 0.5, AST 30, ALT 24, Alkaline Phosphatase 85, Lipase 432 H Assessment and Plan - Problems (Diagnosis) (1) Leukocytosis Current Visit: Yes Status: Acute (2) Esophagitis Current Visit: Yes Status: Acute (3) GI bleed Current Visit: Yes Status: Acute (4) Hypercalcemia Current Visit: Yes Status: Acute - Plan Admit to the medical floor. Patient does not meet criteria for SIRS. Will treat for infection IV cefepime and Flagyl. Patient seen by GI- Dr. Mcduffie who recommended Protonix drip. Patient started on protonix drip. Will add sucralfate. I suspect hypercalcemia is due to dehydration Aggressive IV hydration for dehydration Monitor CBC and blood chemistry Follow cultures Obtain pro calcitonin. Clear liquid diet as tolerated. - Advance Directives Does patient have a Living Will: No Does patient have a Durable POA for Healthcare: No
--- NOTE | 2020-11-04 12:58 | CON ---
Reason For Consultation: Abnormal CT, nausea, vomiting, hematemesis. History Of Presenting Illness: The patient is a 40-year-old gentleman with no known medical problem, except for renal stones and also history of TIA, came into the ER with persistent nausea, vomiting f or the last 2 days. Symptoms started all of a sudden. He said the pain was in the lower abdomen and radiated to the right flank, similar to the one he had with kidney stones. The symptoms did not imp rove and he presented to the ER. He initially vomited food he had eaten and later was just vomiting greenish stuff. The last time his vomitus did contain coffee-ground material. Patient has no prior history of GI issues. Past Medical History: As above. Past Surgical History: None pertinent to the current issue. Allergies: NO KNOWN DRUG ALLERGIES. Home Medications: None. Social History: Smoker. Denies any drugs. Review of Systems: GI: As in HPI. General: As in HPI. Renal: As in HPI, otherwise, negative. Remainder of 10-point review of systems is negative. Physical Examination: Vital Signs: Reviewed. Blood pressure 162/77, pulse 62, respiratory 24, temperature 99.3. HEENT: Head atraumatic, normocephalic. Pupils equally reactive. Neck: Supple. Chest: Clear to auscultation bilaterally. Abdomen: Soft, mild lower and mid abdominal tenderness. Bowel sounds are present. Extremities: No pedal edema. Laboratory Data: Reviewed. Normal hemoglobin of 15 and 45.8; however, severe leukocytosis of 24.7. Normal coagulation profile and chemistry panel. Elevated calcium, hypokalemia, and elevated BUN. M ild elevation of lipase. Patient had a CT of the abdomen and pelvis, did not reveal any significant findings, except for suspected adrenal adenoma. CT of the chest revealed thickening of the thoracic esophagus. Impression: 40-year-old gentleman, who appears to have sepsis, severely elevated white blood cell co unt, nausea, vomiting, abdominal pain, etiology unclear with self-limited episode of coffee-ground em esis and thickening of the esophagus on the CAT. The coffee-ground emesis as well as esophageal thic kening are likely due to persistent vomiting and retching causing probable Sandra-Lawrence tear or tracy re esophagitis. There does not seem to be a concern at this point given the normal hemoglobin. Ther e does not seem to be a concern of overt active significant GI bleed. Plan: Continue current management. N.p.o. for today. Ice chips from tomorrow. Probably can start clear liquids depending on how he tolerates IV PPI. Blood culture, including all septic workup to fi nd the source of sepsis. Once his leukocytosis improves and he gets better hydrated, his symptoms sh ould improve. He should have undergone an upper endoscopy on an outpatient basis in 2 to 3 weeks. T his was discussed with the patient and primary care team. They understand and agree with the plan of care. US/MODL Voice ID: [id number] Report ID: [id number]
[2020-11-04] MEDS: D5 0.9 NS 1,000 ML IV SCH ×2 (13:10→19:43)
[2020-11-04] MEDS: PANTOPRAZOLE INJ 80 MG in NA CHLORIDE 0.9% 250 ML IV SCH ×2 (13:14→19:43)
[2020-11-04] MEDS: METRONIDAZOLE 500mg IVPB 500 MG/100 ML BAG IV SCH ×2 (13:15→17:24)
[2020-11-04] MEDS: SUCRALFATE 1GM/10ML UCUP PO SCH ×3 (14:18→19:42)
[2020-11-04] MEDS: CEFEPIME/SWI 1gm 10 ML IV SCH ×2 (14:18→17:23)
[2020-11-04] MEDS: MORPHINE 2 MG/ML SYR IV PRN ×2 (16:04→22:18)
[2020-11-04] MEDS: ACETAMINOPHEN 500 MG TAB PO PRN (20:23)
[2020-11-04 20:37] LABS: Urine Appearance CLEAR; Urine Bilirubin NEGATIVE (NEG); Urine Blood NEGATIVE (NEG); Urine Color YELLOW; Urine Glucose NEGATIVE (NEG); Urine Protein NEGATIVE (NEG); Urine Specific Gravity 1.025 (1.005-1.030); Urine Urobilinogen 0.2 mg/dL (0.2-1.0); Urine pH 7.5 (5.0-7.0)
[2020-11-04 20:46] LABS: Urine Microscopic Reflex ORDER UMIC
[2020-11-04 21:23] LABS: Urine Amorphous Sediment 3+ /HPF (NONE SEEN); Urine Bacteria <20 /HPF (NONE SEEN); Urine RBC <5 /HPF (NONE SEEN)
[2020-11-05] MEDS: CEFEPIME/SWI 1gm 10 ML IV SCH ×3 (00:22→16:59)
[2020-11-05] MEDS: METRONIDAZOLE 500mg IVPB 500 MG/100 ML BAG IV SCH ×3 (00:22→16:59)
[2020-11-05] MEDS: ONDANSETRON 4 MG/2 ML VIAL IV PRN (02:12)
[2020-11-05] MEDS: D5 0.9 NS 1,000 ML IV SCH ×4 (03:55→19:55)
[2020-11-05 03:58] LABS: Absolute Lymphocytes (CBC) 3.2 K/uL (0.7-4.9); Basophils % 0.5 % (0-1.3); Hematocrit 35.6 % (39.6-49.0); Lymphocytes % 16.7 % (15.3-44.8); MPV 9.1 fL (7.6-11.3)
[2020-11-05 03:59] LABS: Protime INR 0.98
[2020-11-05] MEDS: MORPHINE 2 MG/ML SYR IV PRN (03:59)
[2020-11-05 04:18] LABS: ALT/SGPT 19 U/L (12-78); AST/SGOT 21 U/L (15-37); Albumin 2.9 g/dL (3.4-5.0); Alkaline Phosphatase 64 U/L (45-117); BUN Blood Urea Nitrogen 15 mg/dL (7-18); Bicarbonate 31 mmol/L (21-32); Bilirubin Total 0.4 mg/dL (0.2-1.0); Glucose Level 107 mg/dL (74-106); Magnesium 1.6 mg/dL (1.8-2.4); Phosphorus 1.6 mg/dL (2.5-4.9); Potassium 3.1 mmol/L (3.5-5.1); Protein, Total 5.8 g/dL (6.4-8.2); Sodium Level 142 mmol/L (136-145)
[2020-11-05] MEDS ORDERED: MORPHINE 2 MG/ML SYR IV PRN (07:47)
[2020-11-05] MEDS ORDERED: POTASSIUM PHOS IN 0.9 % NACL 15 MMOL/250 ML BAG IV ONE (08:00)
[2020-11-05] MEDS ORDERED: MAGNESIUM SULFATE 1 gm IVPB 1 GM/100 ML BAG IV ONE (08:00)
[2020-11-05] MEDS ORDERED: KCL 20 MEQ/100 mL IVPB 20 MEQ/100 ML BAG IV SCH (08:00)
[2020-11-05] MEDS: SUCRALFATE 1GM/10ML UCUP PO SCH ×2 (08:29→13:00)
[2020-11-05] MEDS: PANTOPRAZOLE INJ 80 MG in NA CHLORIDE 0.9% 250 ML IV SCH ×2 (08:56→20:57)
[2020-11-05] MEDS: ACETAMINOPHEN 500 MG TAB PO PRN (10:27)
[2020-11-05 12:12] VITALS: BMI 25.7
--- NOTE | 2020-11-05 12:16 | P.PN ---
Subjective Date of Service: 11/05/20 Chief Complaint: Epigastric pain, coffee-ground emesis. Subjective: No new changes (reports no vomiting now, slight nausea. chest/esophagus pain much improved, but continues with diffuse abdominal pain that is intermittent) Review of Systems 10-point ROS is otherwise unremarkable Physical Examination - Vital Signs Temperature: 98.1 F Blood Pressure: 177/91 Pulse: 56 Respirations: 16 Pulse Ox (%): 96 Assessment & Plan Physician Review Additional Text: Physical Exam GEN: mild distress, appears uncomfortable HEENT: sclera anicteric CV: RRR, no murmur Pulm: CTAB, no wheeze/rales/rhonchi, on RA Abd: soft, diffuse TTP, most severe in epigastrium, +guarding, no rebound Ext: no edema Problem List Leukocytosis Esophagitis Abdominal pain Coffee Ground Emesis Hypercalcemia, resolved continue cefepime & flagyl for empiric coverage of abdominal infection / ?enteritis Patient seen by GI- Dr. Mcduffie who recommended Protonix drip for treatment of esophagitis leukocytosis slightly improved today, continue to trend follow cultures pain continues, reports morphine helps but doesn't last, will switch to dilaudid for now CT on admission - possible nonspecific colitis CLD as tolerated recheck lipase today Dispo: anticipate dc home in 24-48hrs eventually will need GI f/u and endoscopy in ~3 weeks Time Spent Managing Pts Care (In Minutes): 35
[2020-11-05] MEDS: HYDROMORPHONE HCL 1 MG/ML INJ IV PRN ×3 (12:59→20:55)
[2020-11-05] MEDS: SUCRALFATE 1 GM TABLET PO SCH ×2 (17:09→20:56)
[2020-11-05] MEDS: KCL 20 MEQ/100 mL IVPB 20 MEQ/100 ML BAG IV SCH ×2 (18:31→20:55)
[2020-11-06] MEDS: METRONIDAZOLE 500mg IVPB 500 MG/100 ML BAG IV SCH ×3 (01:11→16:54)
[2020-11-06] MEDS: CEFEPIME/SWI 1gm 10 ML IV SCH ×3 (01:12→16:54)
[2020-11-06] MEDS: D5 0.9 NS 1,000 ML IV SCH ×5 (03:55→22:13)
[2020-11-06] MEDS: PANTOPRAZOLE INJ 80 MG in NA CHLORIDE 0.9% 250 ML IV SCH ×3 (04:00→14:00)
[2020-11-06 06:10] LABS: Basophils % 0.4 % (0-1.3); Hematocrit 33.1 % (39.6-49.0); MPV 9.1 fL (7.6-11.3); RBC Red Blood Cell Count 3.72 M/uL (4.33-5.43)
[2020-11-06 06:29] LABS: ALT/SGPT 16 U/L (12-78); AST/SGOT 15 U/L (15-37); Albumin 2.7 g/dL (3.4-5.0); Alkaline Phosphatase 58 U/L (45-117); BUN Blood Urea Nitrogen 12 mg/dL (7-18); Bicarbonate 28 mmol/L (21-32); Bilirubin Total 0.4 mg/dL (0.2-1.0); Glucose Level 101 mg/dL (74-106); Magnesium 2.1 mg/dL (1.8-2.4); Phosphorus 1.5 mg/dL (2.5-4.9); Potassium 3.4 mmol/L (3.5-5.1); Protein, Total 5.6 g/dL (6.4-8.2); Sodium Level 143 mmol/L (136-145)
--- NOTE | 2020-11-06 08:04 | RAD REPORT ---
EXAM DESCRIPTION: US - Abdomen Exam Limited - 11/06/2020 7:21 am CLINICAL HISTORY: Abdominal pain. FINDINGS: The gallbladder is mildly distended. The gallbladder wall is thickened with pericholecysti c fluid. A gallstone is not visualized. The common bile duct measures 6.5 millimeters IMPRESSION: Mildly distended gallbladder. Thickened gallbladder wall with pericholecystic fluid may indicate acute cholecystitis Borderline dilatation of the common bile duct.
[2020-11-06] MEDS: POTASS/SODIUM PHOSPHATE 1 PKT POWD.PACK PO SCH ×3 (09:07→13:00)
[2020-11-06] MEDS: SUCRALFATE 1 GM TABLET PO SCH ×4 (09:07→21:06)
[2020-11-06] MEDS: KCL 20 MEQ/100 mL IVPB 20 MEQ/100 ML BAG IV SCH ×2 (09:08→13:01)
[2020-11-06] MEDS: ACETAMINOPHEN 500 MG TAB PO PRN (09:08)
--- NOTE | 2020-11-06 09:14 | P.PN ---
Subjective Date of Service: 11/06/20 Chief Complaint: Epigastric pain, coffee-ground emesis. Subjective: Other (feeling much better today, but continues with abdominal pain, most severe in the epigastric/right upper quadrant Reports was not able to eat much yesterday while waiting for ultrasound. He is hungry and looking forward to food this morning) Physical Examination - Vital Signs Temperature: 97.8 F Blood Pressure: 168/79 Pulse: 45 Respirations: 16 Pulse Ox (%): 94 Assessment & Plan Physician Review Additional Text: Physical Exam GEN: NAD, appears more comfortable today HEENT: sclera anicteric CV: RRR, no murmur Pulm: CTAB, no wheeze/rales/rhonchi, on RA Abd: soft, TTP in epigastrium and RUQ Ext: no edema Problem List Leukocytosis secondary to likely acute cholecystitis Esophagitis Coffee Ground Emesis Hypercalcemia, resolved continue cefepime & flagyl for empiric coverage of abdominal infection / possible acute cholecystitis Patient seen by GI- Dr. Mcduffie who recommended Protonix drip for treatment of esophagitis leukocytosis improved Patient had ultrasound this morning and reported tender right upper quadrant Ultrasound concerning for acute cholecystitis After my exam, patient reportedly had some increased pain after breakfast Will make patient NPO, consult General Surgery for acute cholecystitis continue dilaudid for pain control Dispo: anticipate dc home in ~48hrs eventually will need GI f/u and endoscopy in ~3 weeks Time Spent Managing Pts Care (In Minutes): 35
[2020-11-06] MEDS: HYDROMORPHONE HCL 1 MG/ML INJ IV PRN ×4 (09:31→22:09)
--- NOTE | 2020-11-06 10:03 | PN ---
Subjective: The patient was seen by me today. His symptoms seemed to be significantly better from t he first day. He is not having constant pain, but pain only after he tries to eat. He is it seems l meena a heartburn, but also on the right side of the abdomen goes to the back. Also, he feels it somet imes in the shoulder. His leukocytosis is completely improved. Hemoglobin is stable also. He has b een on the Protonix drip. He had an ultrasound yesterday that revealed distended gallbladder with pe richolecystic fluid consistent with cholecystitis, but no gallstones. Plan: Continue current management. Continue PPI. Diet as tolerated. Given the findings on the ult rasound, we would recommend surgical evaluation for possible acalculous cholecystitis, but we will le t General Surgery make the determination. No intervention from GI. He should have an upper endoscop y in 2 to 3 weeks' time as well as a colonoscopy. US/MODL Voice ID: [id number] Report ID: [id number]
--- NOTE | 2020-11-06 10:54 | CON ---
Date of Consultation: 11/06/2020 Reason For Service: Epigastric right upper quadrant pain. History Of Present Illness: This is the case of a 40-year-old patient admitted to the hospital with epigastric right upper quadrant pain. It has been like that on and off for 2 weeks. He has been see n by GI in the past, diagnosed with esophagitis with previous imaging as per patient with thickening of the esophagus. Also, a coffee-ground emesis. The patient admitted to the hospital and an ultraso und was done showing distended gallbladder and a surgical consult was obtained. He denies any dysuri a, hematuria, hematochezia, other than mentioned above or melena. Denies any recent traveling out of the country. Denies any family member sick at home. The patient is vomiting and retching, and they suspect the esophagitis may be caused by it. Past Medical History: History of TIA, renal stones. Past Surgical History: None. Allergies: NONE. Medications: None. Social History: He not drink alcohol. He smokes occasionally, who was advised once again to stop sm oking and he was counseled. Review of Systems: As per history above. Denies any shortness of breath, any chest pain, otherwise unremarkable. Physical Examination: General: The patient is awake and alert. HEENT: Pupils equal and reactive. Anicteric. Neck: Supple. Chest: Clear. Abdomen: Epigastric tenderness. The rest of the abdomen is soft and depressible. Rectal: Deferred. Extremities: Good capillary refill. Laboratory Data: Blood work comes initially with a WBC count of 24, right now is 9.5 with hemoglobin of 11.2 and platelets of 171. INR of 0.98. Potassium 3.4, creatinine is 0.6, total bilirubin of 0. 4. Ultrasound of the abdomen and pelvis interpreted by Dr. March as mild thickening of the gallbla dder wall consistent with acute cholecystitis, borderline dilatation of the common bile duct. [facility] scan of the abdomen and pelvis done on 11/04/2020, interpreted by Dr. March as mild prominent loops of bowel consistent with possible enteritis, left adrenal mass. The patient had a CT of the chest interpreted by Dr. Bean as circumferential wall thickening of the entire thoracic es ophagus consistent with esophagitis. Assessment: This is 40-year-old patient with multiple findings on imaging of enteritis, esophagitis, and even a cholecystitis. The etiology of his pain is unknown, it may be a combination of many. He was seen already by the imaging engineer, has an endoscopy pending. We are going to limit his t at this moment given the antibiotics for cholecystitis. He understands the benefits, alternatives, and risks of laparoscopic versus open cholecystectomy, which include, but not limited to infection, bleeding, damage to adjacent structures, anesthesia complication, choledocholithiasis, bile leak, aguilera creatitis, ME, and even ; but he also understands this may not relieve any symptoms since it may be a combination of multiple factors and definitely will not improve or cure his esophageal disease, he should look for medical attention for that. Because the common bile duct is dilated, we can obta in the MRCP to get more information about the biliary system. I will follow the patient with you. SONY Voice ID: [id number] Report ID: [id number]
[2020-11-06] MEDS: ONDANSETRON 4 MG/2 ML VIAL IV PRN (11:16)
--- NOTE | 2020-11-06 12:56 | RAD REPORT ---
EXAM DESCRIPTION: MRICholangiogram11/06/2020 11:57 am CLINICAL HISTORY: Abdominal pain COMPARISON: November 05, 2020 ultrasound TECHNIQUE: Magnetic resonance cholangiogram was performed.3D MIP reconstruction performed FINDINGS: The gallbladder wall is markedly thickened with pericholecystic fluid. The gallbladder is distended. The common bile duct is upper limits normal. Signal is not seen within the very distal common bile du ct Pancreatic duct is normal caliber IMPRESSION: Markedly thickened gallbladder wall with pericholecystic fluid suspicious for acute chol ecystitis Questionable small gallstone Signal is not seen within the very distal common bile duct. It is uncertain if this is secondary to a stone
[2020-11-06] MEDS ORDERED: POTASS/SODIUM PHOSPHATE 1 PKT POWD.PACK PO SCH (15:00)
[2020-11-06] MEDS ORDERED: PANTOPRAZOLE 40MG TABLET PO SCH (18:00)
[2020-11-06 21:18] VITALS: O2SAT 95
[2020-11-06 22:03] VITALS: TEMP 98.6
--- NOTE | 2020-11-06 23:56 | P.DS ---
Admission Date: 11/04/20 Discharge Date: 11/06/20 Disposition: TRANSFER TO [facility] Discharge Condition: GOOD Reason for Admission: Epigastric pain, coffee-ground emesis. Consultations: GI- Dr. Mcduffie Surgery- Dr. Diaz Procedures: MRCP-FINDINGS: The gallbladder wall is markedly thickened with pericholecystic fluid. The gallbladder is distended. The common bile duct is upper limits normal. Signal is not seen within the very distal common bile duct Pancreatic duct is normal caliber IMPRESSION: Markedly thickened gallbladder wall with pericholecystic fluid suspicious for acute cholecystitis Questionable small gallstone Signal is not seen within the very distal common bile duct. It is uncertain if this is secondary to a stone ABUS-FINDINGS: The gallbladder is mildly distended. The gallbladder wall is thickened with pericholecystic fluid. A gallstone is not visualized. The common bile duct measures 6.5 millimeters IMPRESSION: Mildly distended gallbladder. Thickened gallbladder wall with pericholecystic fluid may indicate acute cholecystitis Borderline dilatation of the common bile duct. CT ABD/Pelvis-IMPRESSION: Contrast enhanced CT abdomen and pelvis showing no emergent finding. A few mildly prominent small bowel loops are present could support nonspecific enteritis. CT chest-IMPRESSION: No pulmonary emboli identified. Circumferential wall thickening of the entirety of the thoracic esophagus.Correlation is needed with any acute esophagitis findings. Follow up GI consultation will likely be needed for full assessment. CXR-IMPRESSION: No acute cardiopulmonary process. Brief History of Present Illness: Patient was admitted 2 days ago for coffee-ground emesis, esophagitis, leukocytosis. Hospital Course: Patient was admitted 2 days ago for coffee-ground emesis, esophagitis, leukocytosis. Patient was placed on IV PPI and broad spectrum abx, leakocytosis resolved an hgb remained stable without furger GIB. During his stay in the hospital patient began having right upper quadrant abdominal pain, ultrasound was obtained showing acute cholecystitis with borderline CBD. For this reason general surgery wished to have MRCP performed which demonstrated possible distal CBD stone. Gastroenterology unable to perform ERCP, for this reason transfer to [facility] was initiated. Case was discussed with Biliary surgery and hospitalist team who accepted patient for transfer for likely ERCP and further management, patient stable at time of transfer Vital Signs/Physical Exam: Temp Pulse Resp BP Pulse Ox 98.6 F 54 18 143/73 H 95 11/06/20 20:00 11/06/20 20:00 11/06/20 22:09 11/06/20 20:00 11/06/20 20:00 General: Alert, In no apparent distress HEENT: Atraumatic, PERRLA Neck: Supple, JVD not distended Respiratory: Clear to auscultation bilaterally, Normal air movement Cardiovascular: Regular rate/rhythm, Normal S1 S2 Gastrointestinal: Normal bowel sounds, Tenderness (RUQ tenderness) Musculoskeletal: No tenderness Integumentary: No rashes Neurological: Normal speech, Normal tone, Normal affect Laboratory Data at Discharge: WBC 9.5 K/uL (4.3-10.9) D 11/06/20 05:44 Hgb 11.2 g/dL (13.6-17.9) L 11/06/20 05:44 Hct 33.1 % (39.6-49.0) L 11/06/20 05:44 Plt Count 171 K/uL (152-406) 11/06/20 05:44 PT 11.6 SECONDS (9.5-12.5) 11/05/20 03:42 INR 0.98 11/05/20 03:42 Sodium 143 mmol/L (136-145) 11/06/20 05:44 Potassium 3.6 mmol/L (3.5-5.1) 11/06/20 21:59 BUN 12 mg/dL (7-18) 11/06/20 05:44 Creatinine 0.66 mg/dL (0.55-1.3) 11/06/20 05:44 Glucose 101 mg/dL (74-106) 11/06/20 05:44 Phosphorus 1.5 mg/dL (2.5-4.9) L 11/06/20 05:44 Magnesium 2.1 mg/dL (1.8-2.4) D 11/06/20 05:44 Total Bilirubin 0.4 mg/dL (0.2-1.0) 11/06/20 05:44 AST 15 U/L (15-37) 11/06/20 05:44 ALT 16 U/L (12-78) 11/06/20 05:44 Alkaline Phosphatase 58 U/L (45-117) 11/06/20 05:44 Lipase 86 U/L (73-393) 11/05/20 14:41 Home Medications: Aspirin Chewable [Aspirin Chewable*] 1 tab PO DAILY 11/04/20 Ergocalciferol (Vitamin D2) [Vitamin D 50,000 Unit Cap] 1 tab PO DAILY 11/04/20 Fluoxetine HCl [Prozac*] 0.5 tab PO DAILY 11/04/20 Patient Discharge Instructions: Please continue with POC at [facility] Diet: NPO Activity: Fall precautions Followup: Unknown,U [Primary Care Provider] - Time spent managing pt's care (in minutes): 55
[2020-11-07] MEDS: METRONIDAZOLE 500mg IVPB 500 MG/100 ML BAG IV SCH (01:11)
[2020-11-07] MEDS: CEFEPIME/SWI 1gm 10 ML IV SCH (01:12)
[2020-11-07] MEDS: HYDROMORPHONE HCL 1 MG/ML INJ IV PRN (02:46)
[2020-11-07] MEDS: D5 0.9 NS 1,000 ML IV SCH (03:55)
[2020-11-07 05:47] LABS: ALT/SGPT 17 U/L (12-78); AST/SGOT 18 U/L (15-37); Albumin 2.7 g/dL (3.4-5.0); Alkaline Phosphatase 60 U/L (45-117); BUN Blood Urea Nitrogen 10 mg/dL (7-18); Bicarbonate 29 mmol/L (21-32); Bilirubin Total 0.4 mg/dL (0.2-1.0); Glucose Level 95 mg/dL (74-106); Magnesium 2.1 mg/dL (1.8-2.4); Phosphorus 1.6 mg/dL (2.5-4.9); Potassium 3.2 mmol/L (3.5-5.1); Protein, Total 5.3 g/dL (6.4-8.2); Sodium Level 142 mmol/L (136-145)
[2020-11-07 05:56] LABS: Absolute Lymphocytes (CBC) 2.3 K/uL (0.7-4.9); Basophils % 0.4 % (0-1.3); Hematocrit 32.5 % (39.6-49.0); Lymphocytes % 29.7 % (15.3-44.8); MPV 9.3 fL (7.6-11.3); RBC Red Blood Cell Count 3.65 M/uL (4.33-5.43)
[2020-11-07 06:04] VITALS: BP 124/67
[2020-11-07] MEDS ORDERED: PANTOPRAZOLE 40MG TABLET PO SCH (07:30)
== END 2020-11-07 06:39 | disposition short-term general hospital (02) | DRG 871 ==
LOC: ER 05:34 → ERHOLD 08:09 → 2ND 11:56
PROVIDERS: ADMIT Internal Medicine; ATTEND Hospitalist
DX: A41.9 Sepsis, unspecified organism (principal); K21.01 Gastro-esophageal reflux disease with esophagitis, with bleeding; K81.0 Acute cholecystitis; K52.9 Noninfective gastroenteritis and colitis, unspecified; E86.0 Dehydration; F17.210 Nicotine dependence, cigarettes, uncomplicated; D72.829 Elevated white blood cell count, unspecified; I10 Essential (primary) hypertension; E83.52 Hypercalcemia; Z86.73 Personal history of transient ischemic attack (TIA), and cerebral infarction without residual deficits; Z79.82 Long term (current) use of aspirin; Z79.899 Other long term (current) drug therapy; Z20.822 Contact with and (suspected) exposure to COVID-19
CPT/HCPCS: 0240U; 36415; 71045; 71275; 74177; 74181; 76705; 80048; 80053; 80076; 80307; 80320; 81003; 81015; 83605; 83690; 83735; 83880; 84100; 84132; 84145; 84443; 84484; 85025; 85610; 86850; 86900; 86901; 87040; 93005; 94760; 96361; 96365; 96366; 96367; 96375; 99285; C9113; J0692; J1170; J2270; J2405; J2543; J3475; J3480; J7030; J7040; J7042; J7050; Q9967

== ENCOUNTER 2021-02-18 09:23 | Inpatient (IN) | payer SELFPAY ==
--- OUTSIDE RECORDS SUMMARY | 2021-02-18 09:27 | XMS REPORT | Continuity of Care Document ---
:1980 Author Organization [facility] t Address [facility] [place] [address] Care Team Providers Name Role Phone Pcp MD Primary Care Physician Unavailable Doctor Unassigned, Name Attending Clinician Unavailable Nikhil Cisneros MD Attending Clinician Kayce GUAMAN Attending Clinician Tyrone Jim MD Attending Clinician Megan Castellanos MD Attending Clinician [phone] KAYCE Attending Clinician Unavailable Светлана Mann MD Attending Clinician [phone] Rubens Caldwell MD Attending Clinician Martha Montano CRNA Attending Clinician Gideon Barakat MD Attending Clinician Jaleel Keane MD Attending Clinician Attila Lopez MD Attending Clinician Sonia Bowser MD Attending Clinician Unavailable Javier Calderon MD Attending Clinician TYRONE JIM Admitting Clinician Unavailable Problems Condition Condition Condition Status Onset Resolution Last Treating Co mments Source Name Details Category Date Date Treatment Clinician Date Choledocho Choledocho Disease Active [facility] lithiasis lithiasis 11-07 [facility] - [facility] Medical 00 Center Tingling Tingling Disease [facility] - upper upper 00:00: Medical extremity extremity 00 Cent er Tingling Tingling Disease [facility] Center Allergies, Adverse Reactions, Alerts This patient has no known allergies or adverse reactions. Social History Social Habit Start Date Stop Date Quantity Comments Source History [facility] Binge Medical Roddy ter Sex Assigned At [facility] Tobacco use and 2020-11-11 2020-11-[address] [facility] - exposure 00:00:00 00:00:00 [facility] Alcohol intake 2020-11-11 2020-11-11 [facility] Medical Center History SDOH 2020-11-07 2020-11-[address] [facility] - Alcohol Frequency 00:00:00 00:00:00 [facility] Smoking Status Start Date Stop Date Source Current every day smoker 2020-11-11 00:00:00 [facility] Medications Ordered Filled Start Stop Current Ordering Indication Dosage Frequency Signature Comments Components Source Medication Medication Date Date Medication? Clinician (SIG) Name Name fluoxetine Yes 5mg QD Take [address] HCl 11-10 by mouth [facility] - (FLUOXETINE 10:10: daily 5mg M edical ORAL) 23 per Center patient (pharmacy review says 10mg). traMADoL 50mg Take [address] (ULTRAM) 50 11-10- tablet (50 L ukes - mg tablet 00:00: 23:59 mg total) Me dical 00 :00 by mouth Center every 6 (six) hours as needed for Pain for up to 10 days. Max Daily Amount: 200 mg aspirin 81 No 81mg QD Take [address] MG chewable 07-08 tablet (81 L ukes - tablet 00:00: 23:59 mg total) Medic al 00 :00 by mouth Center daily. Vital Signs Vital Name Observation Time Observation Value Comments Source Systolic blood 2020-11-10 08:15:00 143 mm[Hg] [facility] Diastolic blood 2020-11-10 08:15:00 73 mm[Hg] [facility] Heart rate 2020-11-10 08:15:00 60 /min [facility] Body temperature 2020-11-10 08:15:00 36.83 Abeba [facility] Respiratory rate 2020-11-10 08:15:00 18 /min [facility] Oxygen saturation in 2020-11-10 08:15:00 95 /min [facility] Arterial blood by Medical Ce nter Pulse oximetry Body height 2020-11-07 15:01:00 180.3 cm [facility] Body weight 2020-11-07 15:01:00 81.647 kg [facility] BMI 2020-11-07 15:01:00 25.10 kg/m2 [facility] Procedures Procedure Date / Time Performed Performing Clinician [facility] e BASIC METABOLIC PANEL 2020-11-10 03:28:00 NalLis jones Tyrone [facility] ([address] [place] [address] MAGNESIUM 2020-11-10 03:28:00 Nalam Lis Tyrone [facility] CBC W/PLT COUNT & AUTO 2020-11-10 03:28[facility]00 [facility] HEPATIC FUNCTION PANEL 2020-11-10 03:28:00 Waltam Lis Tyrone [facility] TISSUE EXAM 2020-11-09 08:59:00 Kimberly Mann [facility] LAPAROSCOPY,CHOLECYSTECT 2020-11-09 07:35:00 Joe Mann [facility] CBC W/PLT COUNT & AUTO 2020-11-09 03:59:00 Nalam, Lis Tyrone [facility] HEPATIC FUNCTION PANEL 2020-11-09 03:59:00 [facility] BASIC METABOLIC PANEL 2020-11-09 03:59:00 Nalam, Lis Tyrone [facility] - (7) [facility] MAGNESIUM 2020-11-09 03:59:00 Isatu, [facility] ABORH, MANUAL 2020-11-08 04:37:00 Pepper Joseph [facility] LIPASE 2020-11-08 03:32:[address] [facility] BASIC METABOLIC PANEL 2020-11-08 03:32:00 Isatu [facility] (7) [facility] MAGNESIUM 2020-11-08 03:32:00 Isatu, [facility] CBC W/PLT COUNT & AUTO 2020-11-08 03:32:00 Walt [facility] PROTHROMBIN TIME/INR 2020-11-08 03:32:00 [facility] APTT 2020-11-08 [facility] 2020-11-08 [facility]EN, 2020-11-08 03:32:00 [facility] SARS-COV2/RT-PCR ([facility] & 2020-11-07 21:59:00 Ronn [facility] - REF LABS) [facility] REPORT OF PROCEDURE - 2020-11-07 17:33:51 Eleno Keane [facility] ENDOSCOPY [facility] [place] ERCP 2020-11-07 15:58:00 Khoa Esteban [facility] TISSUE EXAM 2020-11-07 15:21:00 Eleno Keane [facility] ERCP 2020-11-07 14:56:00 Eleno Keane [facility] PROCEDURE W/ C-ARM 2020-11-07 14:56:00 Eleno Keane [facility] ERCP,PAPILLOTOMY 2020-11-07 14:56:00 Eleno Keane [facility] ERCP,BALLOON SWEEPING 2020-11-07 14:56:00 Diya Dmitriykimmeryl Marmolejo Virgilio [facility] UPPER ENDOSCOPY,BIOPSY 2020-11-07 14:56:00 DiyaEleno [facility] MR BRAIN WITHOUT IV 2020-07-08 18:07:00 Bowser, [facility] MRA HEAD WITHOUT IV 2020-07-08 18:07:00 Bowser, [facility] MRA NECK WITHOUT IV 2020-07-08 18:07:00 Bowser, [facility] Plan of Care Planned Activity Planned Date Details Comments Source Future Scheduled 2020-10-[address] [facility] - Test 00:00:00 (12+) [code = Medical Center DEPRESSION SCREENING (12+)] Future Scheduled 2020-06-18 INFLUENZA VACCINE (#1) [facility] Test 00:00:00 [code = INFLUENZA Medical Ce nter VACCINE (#1)] Future Scheduled 2014 [facility] (procedure) [code = [facility] [id number]] Future Scheduled 1998 DTAP/TDAP/TD VACCINES [facility] Test 00:00:00 (1 - Tdap) [code = Medical C enter DTAP/TDAP/TD VACCINES (1 - Tdap)] Future Scheduled 1997 HEPATITIS C [facility]CREENING [facility] - Test 00:00:00 [code = HEPATITIS C Medical Center SCREENING] Future Scheduled [address] [facility] - Test 00:00:00 0-64 YRS (1 of 1 - Medical C enter PPSV23) [code = PNEUMOCOCCAL VACCINE 0-64 YRS (1 of 1 - PPSV23)] Encounters Start End Encounter Admission Attending Care Care Encounter Source Date/Time Date/Time Type Type Clinicians Facility Department ID 2020-12-12 2020-12-12 Orders Doctor RODRIGUEZ [id number] 00:00:00 00:00:00 Only Unassigned, PARVIN [id number] [place] [facility] [id number] 2020-11-30 2020-11-30 [facility] [id number] 00:00:00 00:00:00 Boo Tejeda Trudy [id number] [place] [id number] Professio [phone] 2020-10-31 2020-10-31 [facility] [id number] 00:00:00 00:00:00 [place] [id number] [place] [id number] Professio [phone] 2020-09-06 2020-09-06 Orders Doctor JENNIFER [id number] 00:00:00 00:00:00 Only Unassigned, PARVIN [id number] [place] [facility] [id number] 2020-08-18 2020-08-18 Orders Doctor JENNIFER [id number] 00:00:00 00:00:00 Only Unassigned, PARVIN [id number] [place] [facility] [id number] 2020-08-06 2020-08-14 Office [facility] [id number] 08:52:45 13:22:47 Visit Boo Yates [id number] [place] [id number] Professio [phone] [address] Results Test Description Test Time Test Comments Results Result Comments Source Tissue Exam 2020-11-13 14:50:00 Test Item Value Reference Range Interpretation Comme nts Case Report (test code = 104) Surgical Pathology Report Case: [id number] Authorizing Provider: Kimberly Mann Collected: 11/09/2020 08:59 AM MD Светлана Ordering Location: [address] Received: 11/11/2020 08:24 AM Service Pathologist: Anahi León MD Specimen: Gallbladder DIAGNOSIS (test code = 3220) v0lbfZStIQFopDO2HyNmXRBcr9rqx0JufSWboY Fy WApbqCKwmbHnkw79tFA6tS68LI0dUSPnFrK3FSWg gmP3Khv5DXAaAJTreUEqB066c0bnp4ilwjUydVO1 qJvhQIWnHLJuLXklJRJnStLzLQeaqxTvxIEaWN6q nnSxxOOhlSFlrFQnIWIuGVHlvhUsX5UnZDU2qxJw g6SaaWX9cZ9nUUzfEUKik1OyQCccSNUtpTRwMDLm YLuHBRgHLIPLIBFOACUGIB1BHRFHA2JSH2UVOXh4 QJUqdyWiPTXaZU3dP1kPY51QKxKYNW2XMDNUZ5XU ZDuGDassJURmIjRvJng6LZFyiENwOCNbPlj0JTAk rYOmFKHRpMqfcC3oOSZziCmsdS2xpNF3WGSjijXp sRQOfF2yXOSZkG0aNaD2BnYqKgU2LXE1RBjccDIe fQ== CPT Code(s) (test code = 0677) q9mdrCUiVGRavWG2IaRhLQBbp4vno4UubPEf cGFy UBeykWLrgvGshh25nHX0fW82JT9pCHHpSyN7GCSi vvK2Mgo7EVJuSEMlsJPgT965j3qom9ejeeBjoQF6 fVxwYXJkXHBsYWluXGZzMjAgODgzMDRccGFyfQ== CLINICAL HISTORY (test code = 9656) u7wbcVUfVVUoxAC8HwGaJDEuz0ydz4O sdHBncGFy ODtejVQbvnBokr67eQO2rO86XO5eERFzZzZ7YYHz cjH0Fuy1KFWeXJDkbKArK278r6hys4fwesWfcSN7 nWkeMVUyKNLiPQxrGWRjIlOnTQSxa94zosIwMNZe hT9llTCzgU== SPECIMEN SOURCE (test code = 3377) f9owtQQkIFEfqBD2IaKfBFSut7jcu1Wh dHBncGFy PXrhqLUtsvAvbf89kOW2mE76MG9hOIVvInO1YHMe itX5Fww3HCBcDYOraTAyV326n6smw8yiooHwuCQ9 lCfyLIXzWICxDHevXHHhKuYuT3VbsJMjPNNgSUGd cGFyfQ== GROSS DESCRIPTION (test code = 3366) s4vohGDlKGHiuZHqRcVoNMClIPYzn0 lcZGVmbGFu QhUcOsKeGyPbLdrxvCJuYJNyEdDwt9tvs727cKCc g1dgLHAjTxZ1zHTjBYImfVOvO794p5anj3hnmoUy qSX1CLRiTZX2COzwqrSvbuJ5EWuxoNPuTmM1EPkv bqJcMAsncvPsvpJuUpx6TNKiE838SWG9dEaha1qt MPO6PDLlHLSqDiGjXv8rwJPvF211UPOqEEYVGULi zYi3TWTcbuRfefIzaAQHv517O781m2xrBNHcuaPi oSvGwfpkw3atS641OBJoaGElmlYjMmBzHGAiiSDc gSP2WHBgGW1dabbnZpZpBI6gjtrhRbPrXX9dftx4 QpSkUH5eaqhsEpIeAYckKGKovyveBZKej6Bleocu NX1cM1Khu6G6rJ0scHGvDKAmmAEdUwKuMEZgvb4h tIDsKBblc6AiYSS1kdE0kDGbzCUqXUVdEQ18Sirg e0JuYqcyZQA1IPTifpBsp0Uhr6swRhZbyiFaN0ev C5QnBKLxXRHqQLUjKvBoweGwx8Qxp3IolQCcrWf0 k6zmKFNuNQHujDmkl7ysJGD6FGKnG4X1fGCrk1qr YRjvVMDnxZY7plvgCBfqYTVdxgS3ykstHAlvFVGt pLX6owjnHAhcAKRaLnS6rnrdTZuuDRQlPSV7YMly y218DWW7KLymWqgnKCjrDFPfvuSfquHkqJhfQUNi ZWExPHvjQGHcZOuaFUXjRUNxCuWepLehdCixfW5x IxMbPkXiELyjPB2jBHRtA7yclZQaTTYqGJXqR2cg HnZmuK0uaCbsHInrqsPhTFFiJFGpA2YfohWpGUVg ZXNoLCBsYWJlbGVkIHdpdGggdGhlIHBhdGllbnQn kqHzZB3nKQMJBy3iHV1zKBQaKDmlKtnfLRKsieGg ES2uVWZupvOkx2LzBQ9nAOYfDEluiHRcgDSyRGio FbbyJEPevxQcCc7xORbiDpD3CTIvX57yOYdbvKPi DXjwhiAkROEdjAWngMCvnMW8wNRsAUZoiY9vIEcj QKMagp2wOXKvjhIaQD4sewKzWQKyeP8iyGtco1g8 bUNhNVDwG3ggLPzqfKRij8GnzLNuURElhB0rcGyl ZJ3uL9itPW6iRAB1uoW9fc0eLFEjdEN4vJEqYHOe zVMliS1vyCUmh6HpEAdeFE6fvZEvxfJfRW30YhMY nTEpD7OmeHBzEKTtEYKrkFVxf6KoxdPcSZFcQNEk tjAsbAMwJISbYZepOXDto8SopGUoAwWavKzyZuUh Ue5bC5rpySMkaONhglQargUclRJcoqLbYpboEHJy omQ0gREvp7VmF8sySB4vh5Ukc0JtS9oaQI1rM94q qNKmqhUlHbXEiVYpmNZbi6BfWVouBBJipg3tbeLk hcEbntEtvTGlZpRuyTjsbOElHmIRkNZui1ShqME1 eXtqc84vq2IetqPeQ5NnAOPbWL4fYcDxL91dSP3m WNojc7TkPHgvg0tlkjRqFBNoXUhvUX37bEVnVZIk BWIisUHcv3RjjXN7uZSjYBTpN5Ujm75eXBFfDKOw mBMlhOJ0QVNrQQOibeccJBNpU2LunEuizpDsy4Lc RUIeyaMPOTwiB8caoBnyNFA6R4WwkBIwR0jxNGdy lGSdVUbmYV7eVsPiJPzxDOWyABQ0AIgrsYpekKDq GVKvGJzukKztoPQwQMGxtzPCtZHxr1MqSQulUYWw SDJPWEThDXGVYUvGZ5VQQRBdAXVcgp0= MICROSCOPIC DESCRIPTION (test code = z7ajlLPbPEFnfYN9BoLiJULbr5njk6 BsdHBncGFy 3375) FCjirSEzkuQqwn36cUU0rK83VS4uICKcZpJ9TOKo dkL9Txi0OESzYSRckYLjN312k4ygz6wnetZckBW3 hLngDIKgBNItHZdeWHJbDfNhQYSoZg6kcDTdHukx YXJ9 Gross assessment was performed at (test [facility] enter, code = 2777) Department of Pathology, [address] [place] [address], Technical component was performed at [facility] er, (test code = 2778) Department of Pathology, [address] [place] [address], Professional component was performed at [facility] enter, (test code = 2779) Department of Pathology, [address] [place] [address], [facility] [id number] 14:50:00Surgical Pathology Report Case: [id number] Authorizing Provider: Kimberly Mann Collected: 11/09/2020 08:59 AM MD Светлана [facility] Received: 11/11/2020 08:24 AM Service Pathologist: Anahi Lóen MD Specimen: Gallb ladder This amendment is issued to correct a transcriptional error. A. GALLBLADDER, CHOLECYSTECTOMY: - CHRONIC CHOLECYSTITIS. Signing Pathologist Direct Phone Line: [phone] electronically signed by Anahi León MD on 11/13/2020 at 2:50 PM [id number] painGallbladderA. Received fresh, labeled with the patient's name, MRN and "gallbladder" andconsists of an intact gallbladder (7.2 x 3 x 2 cm) which has a patent cystic duct. The serosa is laminar, smooth with petechial hemorrhages in the neck and fundus. A cystic duct lymph node is not present. The gallbladder is opened to reveal a small amount of bile. No choleliths are identified in the specimen or specimen container. The mucosa is clay-green and trabeculated. The wall thickness ranges 0.1-0.3 cm. No gross lesions are identified. Observatory Director sections are submitted.Section codeA1: Cystic duct margin (blue), en faceA2: Gallbladder wallChelsea CHRISTIAN Buitrago PA (ASCP)cmPerformed.[facility], Department of Pathology, [address] [place] [address], [facility], [facility] of Pathology, [address] [place] [address], [facility], Department of Pathology, [address] [place] [address], KXWILY [id number] 11:14:00Surgical Pathology Report Case: [id number] Authorizing Provider: Eleno Keane MD Collected: 11/07/2020 03:21 PM Ordering Location: [address] Received: 11/08/2020 08:02 AM Service Pathologist: Yadira Gardner MD Specimens: A) - Duodenum, duodenum bx B) -Distal Esophagus, distal esophagus bx REASON FOR ADDENDUM:TO REPORT GMS STAIN RESULT:GMS STAIN: NEGATIVE FOR FUNGAL ELEMENTSAddendum electronically signed by Yadira Gardner MD on 11/13/2020 at 11:14 AMA. DUODENUM, BIOPSY: - CHRONIC PEPTIC DUODENITIS -NEGATIVE FOR FEATURES OF CELIAC DISEASE B. 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 GMS stain is pending and will be reported in an addendum.[id number] obstructionA. DuodenumB. Esophagus, distalA. Received informalin labeled with the patient's name, medical record number and "duodenum" and consists of 4 tansoft tissue fragments ranging 0.2-0.3 cm submitted in toto in A1.B. Received in formalin labeled with the patient's name, medical record number and "distal esophagus" and consists of 4 white soft tissue fragments ranging 0.1-0.2 cm submitted in toto in B1.CHRISTIAN Monroe PA ([facility])cmPerformed.The interpretation of this case included the use of immunohistochemistry or special stains.Control Slides Examined: In-house known positive controls were evaluated along with the test tissue. These control slides run alongside of the patients sample show appropriate staining. Internal positive and negative controls when available are evaluated Immunohistochemistry technical testing was performed at [facility], Pathology Laboratory where it was developed and its performance characteristics were determined. It has not been cleared or approved by the U.S. Food and Drug Administration. The FDA has determined that such clearance or approval is not necessary. The test is used for clinical purposes. It should not be regarded as investigational or for research. This laboratory is certified under the Clinical Laboratory Improvement Amendments of 1988 (CLIA-88) as qualified to perform high complexity clinical laboratory testing.Basic metabolic [id number] 04:30:00 Test Item Value Reference Range Interpretation Comments Sodium (test code = 140 meq/L 113-154 6910-2) Potassium (test code = 3.6 meq/L 3.5-5.1 2823-3) Chloride (test code = 108 meq/L 98-107 H 2075-0) CO2 (test code = 26 meq/L 22-29 2028-9) BUN (test code = 10 mg/dL 7-21 3094-0) Creatinine (test code 0.72 mg/dL 0.57-1.25 = 2160-0) Glucose (test code = 119 mg/dL 70-105 H 2345-7) Calcium (test code = 8.1 mg/dL 8.4-10.2 L 34151-4) EGFR (test code = 120 mL/min/1.73 [place] [address]-6) NOT ACCURATE CREATININE CLEARANCE IN PREDICTING GLOMERULAR FILTRATION RATE . ESTIMATED GFR I S NOT APPLICABLE FOR DIALYSIS PATIENTS. TUCKER (test code = TUCKER) Traffic Sign Supervisor ID - EDASI Lab Interpretation Abnormal (test code = 89806-9) [facility] function [id number] 04:30:00 Test Item Value Reference Range Interpretation Comments Protein, Total (test 5.4 See_Comment L [Autom ated code = 2885-2) message] The system which generated this result transmit alok reference range : 6.0 - 8.3 gm/dL . The reference range was not u sed to interpret th is result as normal/abnormal . Albumin (test code = 3.2 g/dL 3.5-5 L 44218-9) Total Bilirubin (test 0.3 mg/dL 0.2-1.2 code = 1974-2) Bilirubin, Direct 0.2 mg/dL 0.1-0.5 (test code = 1967-7) Alkaline Phosphatase 105 U/L 40-150 (test code = 6768-6) AST (test code = 22 U/L 5-34 1920-8) ALT (test code = 26 U/L 6-55 1742-6) TUCKER (test code = TUCKER) Traffic Sign Supervisor ID - EDASI Lab Interpretation Abnormal (test code = 75851-2) [facility] [id number] 04:30:00 Test Item Value Reference Range Interpretation Comments Magnesium (test code = 1.8 mg/dL 1.6-2.6 73575-4) TUCKER (test code = TUCKER) Traffic Sign Supervisor ID - EDASI Lab Interpretation (test Normal code = 10605-2) [facility] HospitalBASIC METABOLIC [id number] 04:30:00 Test Item Value Reference Range Interpretation Comments SODIUM (BEAKER) 140 meq/L 136-145 (test code = 381) POTASSIUM (BEAKER) 3.6 meq/L 3.5-5.1 (test code = 379) CHLORIDE (BEAKER) 108 meq/L 98-107 H (test code = 382) CO2 (BEAKER) (test 26 meq/L 22-29 code = 355) BLOOD UREA NITROGEN 10 mg/dL 7-21 (BEAKER) (test code = 354) CREATININE (BEAKER) 0.72 mg/dL 0.57-1.25 (test code = 358) GLUCOSE RANDOM 119 mg/dL 70-105 H (BEAKER) (test code = 652) CALCIUM (BEAKER) 8.1 mg/dL 8.4-10.2 L (test code = 697) EGFR (BEAKER) (test 120 mL/min/1.73 ESTIM ATED GFR IS code = 1092) sq m NOT ACCURATE CREATININE CLEARANCE IN PREDICTING GLOMERULAR FILTRATION RATE . ESTIMATED GFR I S NOT APPLICABLE FOR DIALYSIS PATIEN TS. Traffic Sign Supervisor ID - [id number] 04:30:00 Test Item Value Reference Range Interpretation Comments MAGNESIUM (BEAKER) (test code = 1.8 mg/dL 1.6-2.6 627) Traffic Sign Supervisor ID - EDASIHEPATIC FUNCTION [id number] 04:30:00 Test Item Value Reference Range Interpretation Comments TOTAL PROTEIN (BEAKER) (test code = 5.4 gm/dL 6.0-8.3 L 770) ALBUMIN (BEAKER) (test code = 1145) 3.2 g/dL 3.5-5.0 L BILIRUBIN TOTAL (BEAKER) (test code 0.3 mg/dL 0.2-1.2 = 377) BILIRUBIN DIRECT (BEAKER) (test 0.2 mg/dL 0.1-0.5 code = 706) ALKALINE PHOSPHATASE (BEAKER) (test 105 U/L 40-150 code = 346) AST (SGOT) (BEAKER) (test code = 22 U/L 5-34 353) ALT (SGPT) (BEAKER) (test code = 26 U/L 6-55 347) Traffic Sign Supervisor ID - EDASICBC with platelet count + automated [id number] 03:48:00 Test Item Value Reference Range Interpretation Comments WBC (test code = 6690-2) 11.3 See_Comment H [A utomated message] The system [employer] generated this result transmitted ref erence range: 3.5 - 10 .5 K/L. The refe rence range was not u sed to interpret this result as normal/abnor mal. RBC (test code = 789-8) 3.71 See_Comment L [Au tomated message] The system [employer] generated this result transmitted ref erence range: 4.63 - 6 .08 M/L. The refe rence range was not u sed to interpret this result as normal/abnor mal. MCHC (test code = 786-4) 33.2 See_Comment L [A utomated message] The system [employer] generated this result transmitted ref erence range: 32.3 - 3 6.5 GM/DL. The refe rence range was not u sed to interpret this result as normal/abnor mal. Hematocrit (test code = 33.1 % 40.1-51 L 4544-3) MCV (test code = 787-2) 89.2 fL 79-92.2 MCH (test code = 785-6) 29.6 pg 25.7-32.2 RDW (test code = 788-0) 13.2 % 11.6-14.4 Platelets (test code = 242 See_Comment [Aut omated message] 777-3) The system [employer] generated this result transmitted ref erence range: 150 - 45 0 K/CU MM. The referen ce range was not u sed to interpret this result as normal/abnor mal. MPV (test code = 10.8 fL 9.4-12.4 63977-1) nRBC (test code = 413) 0 See_Comment [Aut omated message] The system [employer] generated this result transmitted ref erence range: 0 - 0 /1 00 WBC. The refere nce range was not u sed to interpret this result as normal/abnor mal. % Neutros (test code = 62 % 429) % Lymphs (test code = 23 % 430) % Monos (test code = 13 % 431) % Eos (test code = 432) 1 % % Baso (test code = 437) 0 % # Neutros (test code = 7.05 See_Comment H [Aut omated message] 670) The system [employer] generated this result transmitted ref erence range: 1.78 - 5 .38 K/L. The refe rence range was not u sed to interpret this result as normal/abnor mal. # Lymphs (test code = 2.59 See_Comment [Auto mated message] 414) The system [employer] generated this result transmitted ref erence range: 1.32 - 3 .57 K/L. The refe rence range was not u sed to interpret this result as normal/abnor mal. # Monos (test code = 1.46 See_Comment H [Autom ated message] 415) The system [employer] generated this result transmitted ref erence range: 0.30 - 0 .82 K/L. The refe rence range was not u sed to interpret this result as normal/abnor mal. # Eos (test code = 416) 0.13 See_Comment [Au tomated message] The system [employer] generated this result transmitted ref erence range: 0.04 - 0 .54 K/L. The refe rence range was not u sed to interpret this result as normal/abnor mal. # Baso (test code = 417) 0.02 See_Comment [A utomated message] The system [employer] generated this result transmitted ref erence range: 0.01 - 0 .08 K/L. The refe rence range was not u sed to interpret this result as normal/abnor mal. Immature 0 % 0-1 Granulocytes-Relative (test code = 2801) Lab Interpretation (test Abnormal code = 03038-7) [facility] W/PLT COUNT & AUTO [id number] 03:48:00 Test Item Value Reference Range Interpretation Comments WHITE BLOOD CELL COUNT (BEAKER) 11.3 K/ L 3.5-10.5 H (test code = 775) RED BLOOD CELL COUNT (BEAKER) 3.71 M/ L 4.63-6.08 L (test code = 761) HEMOGLOBIN (BEAKER) (test code = 11.0 GM/DL 13.7-17.5 L 410) HEMATOCRIT (BEAKER) (test code = 33.1 % 40.1-51.0 L 411) MEAN CORPUSCULAR VOLUME (BEAKER) 89.2 fL 79.0-92.2 (test code = 753) MEAN CORPUSCULAR HEMOGLOBIN 29.6 pg 25.7-32.2 (BEAKER) (test code = 751) MEAN CORPUSCULAR HEMOGLOBIN CONC 33.2 GM/DL 32.3-36.5 (BEAKER) (test code = 752) RED CELL DISTRIBUTION WIDTH 13.2 % 11.6-14.4 (BEAKER) (test code = 412) PLATELET COUNT (BEAKER) (test 242 K/CU MM 150-450 code = 756) MEAN PLATELET VOLUME (BEAKER) 10.8 fL 9.4-12.4 (test code = 754) NUCLEATED RED BLOOD CELLS 0 /100 WBC 0-0 (BEAKER) (test code = 413) NEUTROPHILS RELATIVE PERCENT 62 % (BEAKER) (test code = 429) LYMPHOCYTES RELATIVE PERCENT 23 % (BEAKER) (test code = 430) MONOCYTES RELATIVE PERCENT 13 % (BEAKER) (test code = 431) EOSINOPHILS RELATIVE PERCENT 1 % (BEAKER) (test code = 432) BASOPHILS RELATIVE PERCENT 0 % (BEAKER) (test code = 437) NEUTROPHILS ABSOLUTE COUNT 7.05 K/ L 1.78-5.38 H (BEAKER) (test code = 670) LYMPHOCYTES ABSOLUTE COUNT 2.59 K/ L 1.32-3.57 (BEAKER) (test code = 414) MONOCYTES ABSOLUTE COUNT (BEAKER) 1.46 K/ L 0.30-0.82 H (test code = 415) EOSINOPHILS ABSOLUTE COUNT 0.13 K/ L 0.04-0.54 (BEAKER) (test code = 416) BASOPHILS ABSOLUTE COUNT (BEAKER) 0.02 K/ L 0.01-0.08 (test code = 417) IMMATURE GRANULOCYTES-RELATIVE 0 % 0-1 PERCENT (BEAKER) (test code = 2801) [id number] 05:11:00 Test Item Value Reference Range Interpretation Comments MAGNESIUM (BEAKER) (test code = 1.8 mg/dL 1.6-2.6 627) Traffic Sign Supervisor ID - ADMINHEPATIC FUNCTION [id number] 05:11:00 Test Item Value Reference Range Interpretation Comments TOTAL PROTEIN (BEAKER) (test code = 5.2 gm/dL 6.0-8.3 L 770) ALBUMIN (BEAKER) (test code = 1145) 3.0 g/dL 3.5-5.0 L BILIRUBIN TOTAL (BEAKER) (test code 0.4 mg/dL 0.2-1.2 = 377) BILIRUBIN DIRECT (BEAKER) (test 0.2 mg/dL 0.1-0.5 code = 706) ALKALINE PHOSPHATASE (BEAKER) (test 113 U/L 40-150 code = 346) AST (SGOT) (BEAKER) (test code = 30 U/L 5-34 353) ALT (SGPT) (BEAKER) (test code = 29 U/L 6-55 347) Traffic Sign Supervisor ID - ADMINBASIC METABOLIC [id number] 05:11:00 Test Item Value Reference Range Interpretation Comments SODIUM (BEAKER) 140 meq/L 136-145 (test code = 381) POTASSIUM (BEAKER) 3.6 meq/L 3.5-5.1 (test code = 379) CHLORIDE (BEAKER) 109 meq/L 98-107 H (test code = 382) CO2 (BEAKER) (test 24 meq/L 22-29 code = 355) BLOOD UREA NITROGEN 9 mg/dL 7-21 (BEAKER) (test code = 354) CREATININE (BEAKER) 0.65 mg/dL 0.57-1.25 (test code = 358) GLUCOSE RANDOM 93 mg/dL 70-105 (BEAKER) (test code = 652) CALCIUM (BEAKER) 7.9 mg/dL 8.4-10.2 L (test code = 697) EGFR (BEAKER) (test 135 mL/min/1.73 ESTIM ATED GFR IS code = 1092) sq m NOT ACCURATE CREATININE CLEARANCE IN PREDICTING GLOMERULAR FILTRATION RATE . ESTIMATED GFR I S NOT APPLICABLE FOR DIALYSIS PATIEN TS. Traffic Sign Supervisor ID - ADMINCBC W/PLT COUNT & AUTO [id number] 04:33:00 Test Item Value Reference Range Interpretation Comments WHITE BLOOD CELL COUNT (BEAKER) 8.9 K/ L 3.5-10.5 (test code = 775) RED BLOOD CELL COUNT (BEAKER) 3.63 M/ L 4.63-6.08 L (test code = 761) HEMOGLOBIN (BEAKER) (test code = 10.7 GM/DL 13.7-17.5 L 410) HEMATOCRIT (BEAKER) (test code = 32.6 % 40.1-51.0 L 411) MEAN CORPUSCULAR VOLUME (BEAKER) 89.8 fL 79.0-92.2 (test code = 753) MEAN CORPUSCULAR HEMOGLOBIN 29.5 pg 25.7-32.2 (BEAKER) (test code = 751) MEAN CORPUSCULAR HEMOGLOBIN CONC 32.8 GM/DL 32.3-36.5 (BEAKER) (test code = 752) RED CELL DISTRIBUTION WIDTH 12.8 % 11.6-14.4 (BEAKER) (test code = 412) PLATELET COUNT (BEAKER) (test 206 K/CU MM 150-450 code = 756) MEAN PLATELET VOLUME (BEAKER) 11.2 fL 9.4-12.4 (test code = 754) NUCLEATED RED BLOOD CELLS 0 /100 WBC 0-0 (BEAKER) (test code = 413) NEUTROPHILS RELATIVE PERCENT 65 % (BEAKER) (test code = 429) LYMPHOCYTES RELATIVE PERCENT 22 % (BEAKER) (test code = 430) MONOCYTES RELATIVE PERCENT 10 % (BEAKER) (test code = 431) EOSINOPHILS RELATIVE PERCENT 2 % (BEAKER) (test code = 432) BASOPHILS RELATIVE PERCENT 0 % (BEAKER) (test code = 437) NEUTROPHILS ABSOLUTE COUNT 5.82 K/ L 1.78-5.38 H (BEAKER) (test code = 670) LYMPHOCYTES ABSOLUTE COUNT 1.93 K/ L 1.32-3.57 (BEAKER) (test code = 414) MONOCYTES ABSOLUTE COUNT (BEAKER) 0.93 K/ L 0.30-0.82 H (test code = 415) EOSINOPHILS ABSOLUTE COUNT 0.15 K/ L 0.04-0.54 (BEAKER) (test code = 416) BASOPHILS ABSOLUTE COUNT (BEAKER) 0.02 K/ L 0.01-0.08 (test code = 417) IMMATURE GRANULOCYTES-RELATIVE 1 % 0-1 PERCENT (BEAKER) (test code = 2801) SARS-CoV2/RT-PCR (Asymptomatic ONLY)2020-11-08 09:38:00 Test Item Value Reference Range Interpretation Comments SARS-COV2/RT-PCR Negative Not Detected, (test code = Negative, See 64166-6) external report for linked test [facility]OV-2 [facility] (test code = 51028-9) TUCKER (test code = Negative result for this TUCKER) test determines that SARS-CoV-2 RNA was not present in the specimen above the Limit of Detection (LOD). However, Negative results do not preclude SARS-CoV-2 infection and should not be used as the sole basis for treatment or patient management decisions. Negative results must be combined with clinical observations, patient history, and epidemiological information. A false negative result may occur if a specimen is improperly collected, transported or handled. A false negative result should be considered if patient's recent exposures or clinical presentation indicate that COVID-19 (SARS-CoV-2) is likely and diagnostic tests for other causes of illness are negative. Re-testing should be considered in cases of suspected false negatives. The limit of detection for this assay is 800 copies/mL. This SARS CoV-2 test is a real-time RT-PCR test intended for the qualitative detection of nucleic acid from SARS-CoV-2 in a nasopharyngeal swab specimen collected from individuals suspected of COVID-19 by their healthcare provider. This test has not been Food and Drug Administration (FDA) cleared or approved. This is a modified version of an approved Emergency Use Authorization (EUA) and is in the process of review by the FDA. Once authorized by the FDA, the issued EUA will be effective until the declaration that circumstances exist justifying the authorization of the emergency use of in vitro diagnostic tests for detection and/or diagnosis of COVID-19 is terminated under Section 564(b)(2) of the Act or the EUA is revoked under Section 564(g) of the Act. Fact Sheet for Healthcare Providers:https://www.[employer]/sites/default/f shayla/product/documents/F act_Sheet_HC_Providers_L dmm_QUWQ-RvY-6.pdf Fact Sheet for Healthcare Patients:https://www.[employer].com/sites/default/fi les/product/documents/Fa ct_Sheet_Patients_Ly_S ARS-CoV-2.pdf Performing Laboratory:[facility] [place] [address] [facility] ([facility])2020-11-08 09:38:00 Test Item Value Reference Range Interpretation Comments SARS-COV2/RT-PCR (test Negative Not Detected, Negative, code = 5305462) See external report for linked test SARS-COV-2 PERFORMING LAB [facility] (test code = 8852449) Negative result for this test determines that SARS-CoV-2 RNA was not present in the specimen above the Limit of Detection (LOD). However, Negative results do not preclude SARS-CoV-2 infection and should not be used as the sole basis for treatment or patient management decisions. Negative results mustbe combined with clinical observations, patient history, and epidemiological information. A false negative result may occur if a specimen is improperly collected, transported or handled. A false negative result should be considered if patient's recent exposures or clinical presentation indicate that COVID-19 (SARS-CoV-2) is likely and diagnostic tests for other causes of illness are negative. Re-testing should be considered in cases of suspected false negatives.The limit of detection for this assay is 800 copies/mL.This SARS CoV-2 test is a real-time RT-PCR test intended for the qualitative detection of nucleic acid from SARS-CoV-2 in a nasopharyngeal swab specimen collected from individuals susp ected of COVID-19 by their healthcare provider.This test has not been Food and Drug Administration (FDA) cleared or approved. This is a modified version of an approved Emergency Use Authorization (EUA) and is in the process of review by the FDA. Once authorized by the FDA, the issued EUA will be effective until the declaration that circumstances exist justifying the authorization of the emergency use of in vitro diagnostic tests for detection and/or diagnosis of COVID-19 is terminated under Section 564(b)(2) of the Act or the EUA is revoked under Section 564(g) of the Act.Fact Sheet for Healthcare Providers:https://www.[employer]/sites/default/files/product/documents/Fact_Mulugeta chasex_LQ_Qurizvsvj_Ufwg_HJTJ-HzK-2.pdfFact Sheet for Healthcare Patients:https://www.[employer]/sites/default/files/product/ documents/Orxs_Bpoyt_Nlnxhikn_Gvzj_LQVO-CyT-5.pdfPerforming Laboratory:[facility], [place] [address], manual 2020-11-08 05:35:00 Test Item Value Reference Range Interpretation Comments ABO Grouping (test code = 2588) O Rh Factor (test code = 2589) [facility], [id number] 05:10:00 Test Item Value Reference Range Interpretation Comments ABO/RH AUTOMATED (BEAKER) (test O POSITIVE code = 2260) Ab Scrn (test code = 890-4) NEGATIVE [facility] 04:42:00 Test Item Value Reference Range Interpretation Comments Lipase (test code = 12 U/L 878 3040-3) TUCKER (test code = TUCKER) Traffic Sign Supervisor ID - DANA W Lab Interpretation (test Normal code = 14668-0) [facility]BAS[facility] METABOLIC [id number] 04:42:00 Test Item Value Reference Range Interpretation Comments SODIUM (BEAKER) 141 meq/L 136-145 (test code = 381) POTASSIUM (BEAKER) 3.5 meq/L 3.5-5.1 (test code = 379) CHLORIDE (BEAKER) 108 meq/L 98-107 H (test code = 382) CO2 (BEAKER) (test 28 meq/L 22-29 code = 355) BLOOD UREA NITROGEN 11 mg/dL 7-21 (BEAKER) (test code = 354) CREATININE (BEAKER) 0.72 mg/dL 0.57-1.25 (test code = 358) GLUCOSE RANDOM 85 mg/dL 70-105 (BEAKER) (test code = 652) CALCIUM (BEAKER) 8.2 mg/dL 8.4-10.2 L (test code = 697) EGFR (BEAKER) (test 120 mL/min/1.73 ESTIM ATED GFR IS code = 1092) sq m NOT ACCURATE CREATININE CLEARANCE IN PREDICTING GLOMERULAR FILTRATION RATE . ESTIMATED GFR I S NOT APPLICABLE FOR DIALYSIS PATIEN TS. Traffic Sign Supervisor ID - DANA [id number] 04:42:00 Test Item Value Reference Range Interpretation Comments MAGNESIUM (BEAKER) (test code = 1.8 mg/dL 1.6-2.6 627) Traffic Sign Supervisor ID Ramsey CORTEZ WHEPATIC FUNCTION [id number] 04:42:00 Test Item Value Reference Range Interpretation Comments TOTAL PROTEIN (BEAKER) (test code = 5.8 gm/dL 6.0-8.3 L 770) ALBUMIN (BEAKER) (test code = 1145) 3.4 g/dL 3.5-5.0 L BILIRUBIN TOTAL (BEAKER) (test code 1.1 mg/dL 0.2-1.2 = 377) BILIRUBIN DIRECT (BEAKER) (test 0.7 mg/dL 0.1-0.5 H code = 706) ALKALINE PHOSPHATASE (BEAKER) (test 137 U/L 40-150 code = 346) AST (SGOT) (BEAKER) (test code = 52 U/L 5-34 H 353) ALT (SGPT) (BEAKER) (test code = 38 U/L 6-55 347) Traffic Sign Supervisor ID - DANA [id number] 04:42:00 Test Item Value Reference Range Interpretation Comments LIPASE (BEAKER) (test code = 749) 12 U/L 8-78 Traffic Sign Supervisor ID - DANA WProthrombin time/[id number] 04:35:00 Test Item Value Reference Interpretation Comments Range Protime (test code = 14.4 See_Comment H [Autom ated 5902-2) message] The system which generated this result transmitted reference range : 11.9 - 14.2 seconds. The reference range was not used to interpret this result as normal/abnormal . INR (test code = 1.15 See_Comment [Automated 6301-6) message] The system which generated this result transmitted reference range : <=5.90. The reference range was not used to interpret this result as normal/abnormal . TUCKER (test code = Effective 03/15/2019: TUCKER) PT Reference Range ChangeNew: 11.9-14.2 Previous: 11.7-14.7 RECOMMENDED COUMADIN/WARFARIN INR THERAPY RANGESSTANDARD DOSE: 2.0-3.0 Includes: PROPHYLAXIS for venous thrombosis, systemic embolization; TREATMENT for venous thrombosis and/or pulmonary embolus.HIGH RISK: Target INR is 2.5-3.5 for patients wiht mechanical heart valves. Lab Interpretation Abnormal (test code = 25014-6) [facility] HospitalaPTT[facility] 04:35:00 Test Item Value Reference Range Interpretation Comments PTT (test code = 82843-9) 28.4 See_Comment [ Automated message] The system [employer] generated this result transmitted ref erence range: 22.5 - 3 6.0 seconds. The re ference range was not u sed to interpret this result as normal/abnor mal. Lab Interpretation (test Normal code = 52226-5) [facility] HospitalPROTHROMBIN TIME/[id number] 04:35:00 Test Item Value Reference Range Interpretation Comments PROTIME (BEAKER) (test code = 14.4 seconds 11.9-14.2 H 759) INR (BEAKER) (test code = 370) 1.15 <=5.90 Effective 03/15/2019: PT Reference Range ChangeNew: 11.9-14.2 Previous: 11.7- 14.7RECOMMENDED COUMADIN/WARFARIN INR THERAPY RANGESSTANDARD DOSE: 2.0-3.0 Includes: PROPHYLAXIS for venous thrombosis, systemic embolization; TREATMENT for venous thrombosis and/or pulmonary embolus.HIGH RISK: Target INR is2.5-3.5 for patients wiht mechanical heart valves.[id number] 04:35:00 Test Item Value Reference Range Interpretation Comments PARTIAL THROMBOPLASTIN TIME 28.4 seconds 22.5-36.0 (BEAKER) (test code = 760) CBC W/PLT COUNT & AUTO [id number] 03:57:00 Test Item Value Reference Range Interpretation Comments WHITE BLOOD CELL COUNT (BEAKER) 8.8 K/ L 3.5-10.5 (test code = 775) RED BLOOD CELL COUNT (BEAKER) 4.01 M/ L 4.63-6.08 L (test code = 761) HEMOGLOBIN (BEAKER) (test code = 12.0 GM/DL 13.7-17.5 L 410) HEMATOCRIT (BEAKER) (test code = 35.0 % 40.1-51.0 L 411) MEAN CORPUSCULAR VOLUME (BEAKER) 87.3 fL 79.0-92.2 (test code = 753) MEAN CORPUSCULAR HEMOGLOBIN 29.9 pg 25.7-32.2 (BEAKER) (test code = 751) MEAN CORPUSCULAR HEMOGLOBIN CONC 34.3 GM/DL 32.3-36.5 (BEAKER) (test code = 752) RED CELL DISTRIBUTION WIDTH 12.6 % 11.6-14.4 (BEAKER) (test code = 412) PLATELET COUNT (BEAKER) (test 227 K/CU MM 150-450 code = 756) MEAN PLATELET VOLUME (BEAKER) 10.6 fL 9.4-12.4 (test code = 754) NUCLEATED RED BLOOD CELLS 0 /100 WBC 0-0 (BEAKER) (test code = 413) NEUTROPHILS RELATIVE PERCENT 73 % (BEAKER) (test code = 429) LYMPHOCYTES RELATIVE PERCENT 13 % (BEAKER) (test code = 430) MONOCYTES RELATIVE PERCENT 12 % (BEAKER) (test code = 431) EOSINOPHILS RELATIVE PERCENT 1 % (BEAKER) (test code = 432) BASOPHILS RELATIVE PERCENT 0 % (BEAKER) (test code = 437) NEUTROPHILS ABSOLUTE COUNT 6.39 K/ L 1.78-5.38 H (BEAKER) (test code = 670) LYMPHOCYTES ABSOLUTE COUNT 1.12 K/ L 1.32-3.57 L (BEAKER) (test code = 414) MONOCYTES ABSOLUTE COUNT (BEAKER) 1.09 K/ L 0.30-0.82 H (test code = 415) EOSINOPHILS ABSOLUTE COUNT 0.11 K/ L 0.04-0.54 (BEAKER) (test code = 416) BASOPHILS ABSOLUTE COUNT (BEAKER) 0.02 K/ L 0.01-0.08 (test code = 417) IMMATURE GRANULOCYTES-RELATIVE 1 % 0-1 PERCENT (BEAKER) (test code = 2801) [place], [id number] 16:06:13Reason for exam:->[facility] : 1980 Sex: MFluoroscopic unit utilized for a procedure performed in the OR. No interpretation was requested. Refer to the operative report for findings. Refer to PACS for patient radiation dose information.FL Endoscopic Retrograde [id number] 15:58:00Interface, External Ris In - 11/08/2020 9:42 AM CSTFluoroscopic unit utilized for a procedure performed in the OR. No interpretation was requested. Refer to the operative report for findings. [place]erto PACS for patient radiation dose information.[facility]MR[facility], WITHOUT CONTRAST 2020-07-08 19:26:00Unlisted Reason for Exam - Click Yes and Enter Reason Below- >YesUnlisted Reason for Exam->tingling/numbnessFINAL REPORT MR, BRAIN, WITHOUT CONTRAST, MR, MRA, BRAIN, WITHOUT CONTRAST, MR, MRA, NECK, WITHOUT IV CONTRAST INDICATION: Unlisted Reason for Examtingling/numbness TECHNIQUE: Multiplanar, multisequence MR imaging of the brain without intravenous contrast.MRA of the head utilizing 3-D ncgu-jv-imbjrn technique, with 3-D reconstructions.MRA of the neck utilizing 2-D and 3-D erkb-as-hemnsd technique, with 3-D reconstructions. COMPARISON: None FINDINGS: MRI Brain:Intracranial: No intracranial hemorrhage. No restricted diffusion to suggest acute infarct. No mass effect. No hydrocephalus. Sinuses: No evidence of sinusitis. Mastoids are clear. Orbits: Globes are intact. Calvarium \\T\\ scalp: Unremarkable. MRA Head:There is no evidence [...] stenosis within the head and neck. Signed: Paloma Mcelroy MDReport Verified Date/Time: 07/08/2020 19:26:58 MR, MRA, BRAIN, WITHOUT [id number] 19:26:00Unlisted Reason for Exam - Click Yes and Enter Reason Below->YesUnlisted Reason for Exam->tingling, numbnessFINAL REPORT MR, BRAIN, WITHOUT CONTRAST, MR, MRA, BRAIN, WITHOUT CONTRAST, MR, MRA, NECK, WITHOUT IV CONTRAST INDICATION: Unlisted Reason for Examtingling/numbness TECHNIQUE: Multiplanar, multisequence MR imaging of the brain without intravenous contrast.MRA of the head utilizing 3-D owsg-zd-cbbakk technique, with 3-D reconstructions.MRA of the neck utilizing 2-D and 3-D nygw-qn-tnuteg technique, with 3-D reconstructions. COMPARISON: None FINDINGS: MRI Brain:Intracranial: No intracranial hemorrhage. No restricted diffusion to suggest acute infarct. No mass effect. No hydrocephalus. Sinuses: No evidence of sinusitis. Mastoids are clear. Orbits: Globes are intact. Calvarium \\T\\ scalp: Unremarkable. MRA Head:There is no evidence of intracranial aneurysm, focal stenosis, or major branch vessel occlusion. Diminutive left vertebral artery terminates in PICA. MRA Neck:The carotid arteries in the neck are patent including their bifurcations. There is antegrade flow in the heydi tebral arteries in the neck. Left vertebral artery is diminutive along the entirety of its course. IMPRESSION:1.No acute intracranial abnormality.2.No proximal branch arterial occlusion or high-grade focal stenosis within the head and neck. Signed: Paloma Mcelroy MDReport Verified Date/Time: 07/08/2020 19:26:58 MR, MRA, NECK, WITHOUT IV [id number] 19:26:00Unlisted Reason for Exam - Click Yes and Enter Reason Below->YesUnlisted Reason for Exam->tingling, numbnessFINAL REPORT MR, BRAIN, WITHOUT CONTRAST, MR, MRA, BRAIN, WITHOUT CONTRAST, MR, MRA, NECK, WITHOUT IV CONTRAST INDICATION: Unlisted Reason for Examtingling/numbness TECHNIQUE: Mul tiplanar, multisequence MR imaging of the brain without intravenous contrast.MRA of the head utilizing 3-D riux-hl-qkzuww technique, with 3-D reconstructions.MRA of the neck utilizing 2-D and 3-D hdnp-pq-zkhbml technique, with 3-D reconstructions. COMPARISON: None FINDINGS: MRI Brain:Intracranial: No i ntracranial hemorrhage. No restricted diffusion to suggest acute infarct. No mass effect. No hydrocephalus. Sinuses: No evidence of sinusitis. Mastoids are clear. Orbits: Globes are intact. Calvarium \\T\\ scalp: Unremarkable. MRA Head:There is no evidence of intracranial aneurysm, focal stenosis, or major branch vessel occlusion. Diminutive left vertebral artery terminates in PICA. MRA Neck:The carotid arteries in the neck are patent including their bifurcations. There is antegrade flow in the vertebral arteries in the neck. Left vertebral artery is diminutive along the entirety of its course. I MPRESSION:1.No acute intracranial abnormality.2.No proximal branch arterial occlusion or high-grade focal stenosis within the head and neck. Signed: Paloma Mcelroy MDReport Verified Date/Time: 07/08/2020 19:26:58 MRA head without IV [id number] 19:26:00Interface, External Ris In - 07/08/2020 7:29 PM CDTFINAL REPORT MR, BRAIN, WITHOUT CONTRAST, MR, MRA, BRAIN, WITHOUT CONTRAST, MR, MRA, NECK, WITHOUT IV CONTRAST INDICATION: Unlisted Reason for Examtingling/numbness TECHNIQUE: Multiplanar, multisequence MR imaging of the brain without intravenous contrast.MRA of the head utilizing 3-D xlck-yt-fgrmgh technique, with 3-D reconstructions.MRA of the neck utilizing 2-D and 3-D ccdc-wk-kcvciv technique, with 3-D reconstructions. COMPARISON: None FINDINGS: MRI Brain:Intracranial: No intracranial hemorrhage. No restricted diffusion to suggest acute infarct. No mass effect. No hydrocephalus. Sinuses: No evidence of sinusitis. Mastoids are clear. Orbits: Globes are intact. Calvarium \\T\\ scalp: Unremarkable. MRA Head:There is no evid ence of intracranial aneurysm, focal stenosis, or major [...] stenosis within the head and neck. Signed: Paloma Mcelroy MDReport Verified Date/Time: 07/08/2020 19:26:58 [facility] 2020-07-08 19:26:00Interface, External Ris In - 07/08/2020 7:29 PM CDTFINAL REPORT MR, BRAIN, WITHOUT CONTRAST, MR, MRA, BRAIN, WITHOUT CONTRAST, MR, MRA, NECK, WITHOUT IV CONTRAST INDICATION: Unlisted Reason for Examtingling/numbness TECHNIQUE: Multiplanar, multisequence MR imaging of the brain without intravenous contrast.MRA of the head utilizing 3-D mpsa-lm-bxxuvw technique, with 3-D reconstructions.MRA of the neck utilizing 2-D and 3-D yrah-fa-ykzvzt technique, with 3-D reconstructions. COMPARISON: None FINDINGS: MRI Brain:Intracranial: No intracranial hemorrhage. No restricted diffusion to suggest acute infarct. No mass effect. No hydrocephalus. Sinuses: No evidence of sinusitis. Mastoids are clear. Orbits: Globes are intact. Calvarium \\T\\ scalp: Unremarkable. MRA Head:There is no evidence of intracranial aneurysm, focal stenosis, or major branch vessel occlusion. Diminutive left vert ebral artery terminates in PICA. MRA Neck:The carotid arteries in the neck are patent including their bifurcations. There is antegrade flow in the vertebral arteries in the neck. Left vertebral artery is diminutive along the entirety of its course. IMPRESSION:1.No acute intracranial abnormality.2.No proximal branch arterial occlusion or high-grade focal stenosis within the head and neck. Signed: Paloma Mcelroy Verified Date/Time: 07/08/2020 19:26:58 [facility] [id number] 19:26:00 Interface, External Ris In - 07/08/2020 7:29 PM CDTFINAL REPORT MR, BRAIN, WITHOUT CONTRAST, MR, MRA, BRAIN, WITHOUT CONTRAST, MR, MRA, NECK, WITHOUT IV CONTRAST INDICATION: Unlisted Reason for Examtingling/numbness TECHNIQUE: Multiplanar, multisequence MR imaging of the brain without intravenous contrast.MRA of the head utilizing 3-D kkjs-sj-dpjtxl technique, with 3-D reconstructions.MRA of the neck utilizing 2-D and 3-D bhpn-ow-hzfopi technique, with 3-D reconstructions. COMPARISON: None FINDINGS: MRI Brain:Intracranial: No intracranial hemorrhage. No restricted diffusion to suggest acute infarct. No mass effect. No hydrocephalus. Sinuses: No evidence of sinusitis. Mastoids are clear. Orbits: Globes are intact. Calvarium \\T\\ scalp: Unremarkable. MRA Head:There is no evidence [...]
[2021-02-18 09:56] LABS: Absolute Lymphocytes (CBC) 2.4 K/uL (0.7-4.9); Basophils % 0.5 % (0-1.3); Hematocrit 46.1 % (39.6-49.0); MPV 8.7 fL (7.6-11.3); RBC Red Blood Cell Count 5.33 M/uL (4.33-5.43)
[2021-02-18] MEDS ORDERED: ONDANSETRON 4 MG/2 ML VIAL ONE ×2 (09:56→19:59)
[2021-02-18] MEDS ORDERED: FAMOTIDINE 20 MG/2 ML VIAL IV ONE ×2 (09:56)
[2021-02-18] MEDS ORDERED: NA CHLORIDE 0.9% 1,000 ML ONE ×2 (09:56→11:18)
[2021-02-18] MEDS ORDERED: PROMETHAZINE INJ 25 MG/ML AMP ONE ×2 (09:56→10:19)
[2021-02-18] MEDS ORDERED: MORPHINE 4 MG/ML SYR ONE ×2 (09:57→10:19)
[2021-02-18 10:13] LABS: Albumin 3.7 g/dL (3.4-5.0); Bilirubin Direct 0.1 mg/dL (0-0.2); Bilirubin Total 0.5 mg/dL (0.2-1.0); Potassium 3.8 mmol/L (3.5-5.1); Protein, Total 7.3 g/dL (6.4-8.2)
--- NOTE | 2021-02-18 10:24 | RAD REPORT ---
EXAM DESCRIPTION: CT - Abdomen Pelvis W Contrast - 02/18/2021 10:10 am CLINICAL HISTORY: ABD PAIN COMPARISON: Abdomen Pelvis W Contrast dated 11/04/2020; Abdomen Pelvis W Contrast dated 12/27/2016 TECHNIQUE: Biphasic, helical CT imaging of the abdomen and pelvis was performed following 100 ml non -ionic IV contrast. No oral contrast administered. All CT scans are performed using dose optimization technique as appropriate and may include automated exposure control or mA/KV adjustment according to patient size. FINDINGS: No suspicious findings in the lung bases. The liver, spleen, and pancreas show no suspicious findings. Cholecystectomy clips are present. No bi liary tree dilatation. Symmetric renal function is seen with no hydronephrosis or suspicious renal mass. No pyelonephritis o r acute parenchymal process. No bladder abnormalities. Right adrenal gland is normal. Left adrenal ma sses are present. This appears to be 2 abutting masses largest 2 cm. Attenuation is low. No clear sarah nge in size or characteristics dating back to 2016. Story of the stomach are accentuated. There is little intraluminal content. Asymmetric wall thickenin g or mass is not seen. No abnormal enhancement or adjacent stranding. No abnormality of the duodenum seen. Patient has a few small sub centimeter mesenteric lymph nodes. The appendix is normal. A few mi ldly prominent small bowel loops are present in the lower pelvis. No free air, free fluid or inflammatory stranding. No hernia, mass or bulky lymphadenopathy. No suspicious bony findings. IMPRESSION: No appendicitis, free air or other surgically emergent finding. A few prominent small bowel loops in the lower pelvis could indicate enteritis. This is a minimal fin ding. No stomach, duodenum, pancreatic or biliary tree abnormality seen that might explain predominately ep igastric pain pattern.
--- NOTE | 2021-02-18 10:49 | ER ---
Nurse's Notes [facility] Name: Ta Quezada Age: 40 yrs Sex: Male : 1980 Arrival Date: 02/18/2021 Time: 09:27 Bed 2 Private MD: Diagnosis: Abdominal tenderness-intractable;Vomiting;Gastritis, unspecified Presentation: 02/18 09:28 Chief complaint: EMS states: abd pain, n/v since this morning and right hand tingling. sv Coronavirus screen: Client denies travel out of the [place] in the last 14 days. At this time, the client does not indicate any symptoms associated with coronavirus-19. Ebola Screen: No symptoms or risks identified at this time. Risk Assessment: Do you want to hurt yourself or someone else? Patient reports no desire to harm self or others. Onset of symptoms was February 18, 2021. 09:28 Method Of Arrival: EMS: [facility] 09:28 Acuity: RENE 2 sv 09:28 Initial Sepsis Screen: Does the patient meet any 2 criteria? RR > 20 per min. No. sv Patient's initial sepsis screen is negative. Does the patient have a suspected source of infection? No. Patient's initial sepsis screen is negative. Triage Assessment: 09:28 General: Appears in no apparent distress. uncomfortable, well developed, Behavior is sv cooperative, appropriate for age, restless. Pain: Complains of pain in epigastric area Pain currently is 10 out of 10 on a pain scale. Quality of pain is described as sharp, Pain began suddenly, Is continuous, Alleviated by nothing. Aggravated by increased activity, repositioning, Noted to be grimacing, guarding, moaning, restless. Neuro: Level of Consciousness is awake, alert, obeys commands, Oriented to person, place, time, situation, Moves all extremities. Full function Speech is normal. Respiratory: Airway is patent Respiratory effort is even, unlabored, Respiratory pattern is regular, symmetrical. GI: Abdomen is round non-distended, Pt is actively vomiting undigested food, Abd is soft X 4 quads Abdomen is tender to palpation in right upper quadrant and left upper quadrant Reports gaseousness, intolerance of fluids, intolerance of food, nausea, vomiting. Derm: Skin is intact, Skin is pink, warm \\T\\ dry. Musculoskeletal: Range of motion: intact in all extremities. Historical: - Allergies: 10:07 No Known Allergies; sv - Home Meds: 16:45 Prilosec 40 mg Oral cpDR 1 cap once daily [Active]; fluoxetine 10 mg Oral cap once sv daily [Active]; Vitamin D 500 units daily Oral [Active]; - PMHx: 10:07 Kidney stones; TIA; sv 16:45 GERD; Hypertension; sv - Immunization history:: Adult Immunizations. - Social history:: Smoking status: . - Family history:: not pertinent. Screenin:40 Abuse screen: Denies threats or abuse. Denies injuries from another. Nutritional sv screening: No deficits noted. Tuberculosis screening: No symptoms or risk factors identified. Fall Risk None identified. Assessment: 09:38 Reassessment: Patient appears in no apparent distress at this time. No changes from sv previously documented assessment. Patient and/or family updated on plan of care and expected duration. Pain level reassessed. Patient is alert, oriented x 3, equal unlabored respirations, skin warm/dry/pink. GI: Pt is actively vomiting undigested food. 09:58 Reassessment: Patient appears in no apparent distress at this time. No changes from sv previously documented assessment. Patient and/or family updated on plan of care and expected duration. Pain level reassessed. Patient is alert, oriented x 3, equal unlabored respirations, skin warm/dry/pink. GI: Pt is actively vomiting undigested food. 11:00 Reassessment: Patient appears in no apparent distress at this time. No changes from sv previously documented assessment. Patient and/or family updated on plan of care and expected duration. Pain level reassessed. Patient is alert, oriented x 3, equal unlabored respirations, skin warm/dry/pink. 12:30 Reassessment: Patient appears in no apparent distress at this time. Patient and/or sv family updated on plan of care and expected duration. Pain level reassessed. Patient is alert, oriented x 3, equal unlabored respirations, skin warm/dry/pink. Vital Signs: 09:28 BP 144 / 93; Pulse 79; Resp 32; Temp 97; Pulse Ox 100% ; Pain 10/10; sv 10:22 BP 156 / 86; Pulse 87; Resp 16; Pulse Ox 96% ; Weight 95.25 kg; Height 5 ft. 11 in. sv (180.34 cm); 11:00 BP 141 / 99; Pulse 91; Resp 24; Pulse Ox 99% ; sv 11:45 BP 159 / 91; Pulse 78; Resp 20; Pulse Ox 96% ; sv 12:30 BP 152 / 75; Pulse 60; Resp 19; Pulse Ox 96% ; sv 10:22 Body Mass Index 29.29 (95.25 kg, 180.34 cm) sv ED Course: 09:27 Patient arrived in ED. sv 09:28 Mariam Bello RN is Primary Nurse. sv 09:28 Triage completed. sv 09:32 Bruno Rivera MD is Attending Physician. sarah 09:35 Arm band placed on. sv 09:40 Inserted saline lock: 18 gauge in left antecubital area, using aseptic technique. Blood sv collected. Flushed left antecubital with 5 ml normal saline. 09:40 Patient has correct armband on for positive identification. Placed in gown. Bed in low sv position. Call light in reach. Side rails up X2. shelter monitor on. Pulse ox on. NIBP on. Door closed. Warm blanket given. Head of bed elevated. 10:[address] via stretcher. sv 10:10 CT Abd/Pelvis - IV Contrast Only In Process Unspecified. EDMS 10:[address] back from [address]. sv 10:47 Fausto Wasserman MD is Hospitalizing Provider. sarah 12:30 No provider procedures requiring assistance completed. Patient admitted, IV remains in sv place. intact. 12:43 Urine Drug Screen Sent. sv 15:07 CORONAVIRUS Sent. sv 15:07 COVID-19 : Document "Date of Symptom Onset" if Symptomatic. Sent. sv 19:02 Report given to Den DOMINGUEZ and Jeanne DOMINGUEZ. sv 19:10 Primary Nurse role handed off by Mariam Bello RN sv Administered Medications: 09:40 Drug: NS 0.9% 1000 ml Route: IV; Rate: 1 bolus; Site: left antecubital; sv 10:30 Follow up: Response: No adverse reaction; IV Status: Completed infusion; IV Intake: sv 1000ml 09:40 Drug: Zofran (Ondansetron) 4 mg Route: IVP; Site: left antecubital; sv 10:00 Follow up: Response: No adverse reaction sv 09:42 Drug: Pepcid (famotidine) 20 mg Route: IVP; Site: left antecubital; sv 10:00 Follow up: Response: No adverse reaction sv 09:44 Drug: morphine 4 mg Route: IVP; Site: left antecubital; sv 10:00 Follow up: Response: No adverse reaction; RASS: Very agitated (+3) sv 10:00 Drug: Phenergan (promethazine) 12.5 mg Route: IVP; Site: left antecubital; sv 10:21 Follow up: Response: No adverse reaction sv 10:02 Drug: morphine 4 mg Route: IVP; Site: left antecubital; sv 10:21 Follow up: Response: No adverse reaction; RASS: Drowsy (-1) sv 11:00 Drug: ProTONIX (pantoprazole) 40 mg Route: IVP; Site: left antecubital; sv 11:30 Follow up: Response: No adverse reaction sv 11:00 Drug: Dilaudid (HYDROmorphone) 1 mg Route: IVP; Site: left antecubital; sv 11:30 Follow up: Response: No adverse reaction; Marked relief of symptoms; Pain is decreased; sv RASS: Light sedation (-2) 11:00 Drug: NS 0.9% 1000 ml Route: IV; Rate: 125 ml/hr; Site: left antecubital; sv 12:30 Follow up: Response: No adverse reaction; IV Status: Infusion continued upon admission sv Intake: 10:30 IV: 1000ml; Total: 1000ml. sv Output: 12:41 Urine: 300ml (Voided); Total: 300ml. sv Outcome: 10:48 Decision to Hospitalize by Provider. sarah 12:30 Admitted to ER Hold. Please see [facility] for further documentation. sv 12:30 Condition: stable 12:30 Instructed on the need for admit. 19:29 Admitted to Tele accompanied by nurse, via wheelchair, room 408, with chart, Report mg2 called to ANGELICA Nunes 19:29 Condition: stable 19:29 Instructed on the need for admit, Demonstrated understanding of instructions. 19:29 Patient left the ED. mg2 Signatures: Dispatcher [employer] Mariam Hendrix RN RN sv Anderson, Corey, MD MD cha Gardose, Michele, RN RN mg2 Corrections: (The following items were deleted from the chart) 10:08 09:28 Acuity: RENE 3 sv sv : 09:28 Chief complaint: EMS states: abd pain, n/v since this morning. sv sv 16:54 10:22 BP 156 / 86; Pulse 87bpm; Resp 16bpm; Pulse Ox 96%; sv sv 16:55 09:28 BP 144 / 93; Pulse 79bpm; Resp 32bpm; Pulse Ox 100%; Pain 10/10; sv sv
--- NOTE | 2021-02-18 10:49 | EDPHYS ---
Physician Documentation [facility] Name: Ta Quezada Age: 40 yrs Sex: Male : 1980 Arrival Date: 02/18/2021 Time: 09:27 Bed 2 Private MD: ED Physician Bruno Rivera HPI: 02/18 09:46 This 40 yrs old Male presents to ER via Unassigned with complaints of sarah Epigastric Pain. 09:46 The patient presents with abdominal pain in the epigastric area, in the upper abdomen, sarah abdominal distention in the epigastric area, in the upper abdomen. Onset: The symptoms/episode began/occurred just prior to arrival. The symptoms do not radiate. Associated signs and symptoms: none. The symptoms are described as crampy. Modifying factors: The symptoms are alleviated by nothing, the symptoms are aggravated by nothing. Severity of pain: At its worst the pain was moderate in the emergency department the pain is unchanged. The patient has not experienced similar symptoms in the past. Historical: - Allergies: 10:07 No Known Allergies; sv - Home Meds: 16:45 Prilosec 40 mg Oral cpDR 1 cap once daily [Active]; fluoxetine 10 mg Oral cap once sv daily [Active]; Vitamin D 500 units daily Oral [Active]; - PMHx: 10:07 Kidney stones; TIA; sv 16:45 GERD; Hypertension; sv - Immunization history:: Adult Immunizations. - Social history:: Smoking status: . - Family history:: not pertinent. ROS: 09:46 Constitutional: Negative for fever, chills, and weight loss, Eyes: Negative for injury, sarah pain, redness, and discharge, ENT: Negative for injury, pain, and discharge, Neck: Negative for injury, pain, and swelling, Cardiovascular: Negative for chest pain, palpitations, and edema, Respiratory: Negative for shortness of breath, cough, wheezing, and pleuritic chest pain, Back: Negative for injury and pain, : Negative for injury, bleeding, discharge, and swelling, MS/Extremity: Negative for injury and deformity, Skin: Negative for injury, rash, and discoloration, Neuro: Negative for headache, weakness, numbness, tingling, and seizure, Psych: Negative for depression, anxiety, suicide ideation, homicidal ideation, and hallucinations, Allergy/Immunology: Negative for hives, rash, and allergies, Endocrine: Negative for neck swelling, polydipsia, polyuria, polyphagia, and marked weight changes, Hematologic/Lymphatic: Negative for swollen nodes, abnormal bleeding, and unusual bruising. 09:46 Abdomen/GI: Positive for abdominal pain, nausea and vomiting, of the epigastric area, right upper quadrant and left upper quadrant. Exam: 09:46 Constitutional: This is a well developed, well nourished patient who is awake, alert, sarha and in no acute distress. Head/Face: Normocephalic, atraumatic. Eyes: Pupils equal round and reactive to light, extra-ocular motions intact. Lids and lashes normal. Conjunctiva and sclera are non-icteric and not injected. Cornea within normal limits. Periorbital areas with no swelling, redness, or edema. ENT: Nares patent. No nasal discharge, no septal abnormalities noted. Tympanic membranes are normal and external auditory canals are clear. Oropharynx with no redness, swelling, or masses, exudates, or evidence of obstruction, uvula midline. Mucous membranes moist. Neck: Trachea midline, no thyromegaly or masses palpated, and no cervical lymphadenopathy. Supple, full range of motion without nuchal rigidity, or vertebral point tenderness. No Meningismus. Chest/axilla: Normal chest wall appearance and motion. Nontender with no deformity. No lesions are appreciated. Cardiovascular: Regular rate and rhythm with a normal S1 and S2. No gallops, murmurs, or rubs. Normal PMI, no JVD. No pulse deficits. Respiratory: Lungs have equal breath sounds bilaterally, clear to auscultation and percussion. No rales, rhonchi or wheezes noted. No increased work of breathing, no retractions or nasal flaring. Back: No spinal tenderness. No costovertebral tenderness. Full range of motion. Male : Normal genitalia with no discharge or lesions. Skin: Warm, dry with normal turgor. Normal color with no rashes, no lesions, and no evidence of cellulitis. MS/ Extremity: Pulses equal, no cyanosis. Neurovascular intact. Full, normal range of motion. Neuro: Awake and alert, GCS 15, oriented to person, place, time, and situation. Cranial nerves II-XII grossly intact. Motor strength 5/5 in all extremities. Sensory grossly intact. Cerebellar exam normal. Normal gait. Psych: Awake, alert, with orientation to person, place and time. Behavior, mood, and affect are within normal limits. 09:46 Abdomen/GI: Inspection: abdomen appears normal, Bowel sounds: normal, Palpation: mild abdominal tenderness, Liver: no appreciated palpable abnormalities, Hernia: not appreciated. 10:50 ECG was reviewed by the Attending Physician. sarah Vital Signs: 09:28 BP 144 / 93; Pulse 79; Resp 32; Temp 97; Pulse Ox 100% ; Pain 10/10; sv 10:22 BP 156 / 86; Pulse 87; Resp 16; Pulse Ox 96% ; Weight 95.25 kg; Height 5 ft. 11 in. sv (180.34 cm); 11:00 BP 141 / 99; Pulse 91; Resp 24; Pulse Ox 99% ; sv 11:45 BP 159 / 91; Pulse 78; Resp 20; Pulse Ox 96% ; sv 12:30 BP 152 / 75; Pulse 60; Resp 19; Pulse Ox 96% ; sv 10:22 Body Mass Index 29.29 (95.25 kg, 180.34 cm) sv MDM: 09:32 Patient medically screened. [facility] 09:49 Differential diagnosis: diverticulitis, gastritis, gastroesophageal reflux disease, sarah myocardia ischemia or infarction, non-specific abd pain, pancreatitis, Peptic Ulcer Disease, Peritonitis, Pyelonephritis, Ureterolithiasis, urinary tract infection. Data reviewed: vital signs, nurses notes, lab test result(s), EKG, radiologic studies, CT scan. Data interpreted: court monitor: rate is 89 beats/min, rhythm is regular, Pulse oximetry: on is 99 %. Test interpretation: by ED physician or midlevel provider: ECG. Counseling: I had a detailed discussion with the patient and/or guardian regarding: the historical points, exam findings, and any diagnostic results supporting the discharge/admit diagnosis, lab results, radiology results. 02/18 09:33 Order name: Basic Metabolic Panel; Complete Time: 10:49 [facility] 02/18 09:33 Order name: CBC with Diff; Complete Time: 10:49 [facility] 02/18 09:33 Order name: Hepatic Function; Complete Time: 10:49 [facility] 02/18 09:33 Order name: Lipase; Complete Time: 10:49 [facility] 02/18 11:15 Order name: Urine Dipstick-Ancillary EDMS 02/18 11:20 Order name: Urine Drug Screen sv 02/18 11:21 Order name: Urine Drug Screen EDNY 02/18 12:43 Order name: COVID-19 : Document "Date of Symptom Onset" if Symptomatic. sv 02/18 14:09 Order name: CORONAVIRUS EDNY 02/18 14:56 Order name: SARS-COV-2 RT PCR EDNY 02/18 15:10 Order name: CREATININE WHOLE BLOOD EDNY 02/18 16:30 Order name: Troponin I EDNY 02/18 16:30 Order name: NT PRO-BNP EDNY 02/18 16:30 Order name: Lipid Profile EDNY 02/18 09:33 Order name: IV Saline Lock; Complete Time: 10:05 [facility] 02/18 09:33 Order name: Labs collected and sent; Complete Time: 10:05 [facility] 02/18 09:33 Order name: EKG; Complete Time: 09:34 [facility] 02/18 09:33 Order name: EKG - Nurse/Tech; Complete Time: 15:07 [facility] 02/18 09:33 Order name: CT Abd/Pelvis - IV Contrast Only; Complete Time: 10:49 sarah EC:50 Rate is 76 beats/min. Rhythm is regular. QRS [place] is Normal. [place] interval is normal. QRS sarah interval is normal. QT interval is normal. No Q waves. T waves are Normal. No ST changes noted. Clinical impression: Normal ECG and No evidence of ischemia. Interpreted by me. Reviewed by me. Administered Medications: 09:40 Drug: NS 0.9% 1000 ml Route: IV; Rate: 1 bolus; Site: left antecubital; sv 10:30 Follow up: Response: No adverse reaction; IV Status: Completed infusion; IV Intake: sv 1000ml 09:40 Drug: Zofran (Ondansetron) 4 mg Route: IVP; Site: left antecubital; sv 10:00 Follow up: Response: No adverse reaction sv 09:42 Drug: Pepcid (famotidine) 20 mg Route: IVP; Site: left antecubital; sv 10:00 Follow up: Response: No adverse reaction sv 09:44 Drug: morphine 4 mg Route: IVP; Site: left antecubital; sv 10:00 Follow up: Response: No adverse reaction; RASS: Very agitated (+3) sv 10:00 Drug: Phenergan (promethazine) 12.5 mg Route: IVP; Site: left antecubital; sv 10:21 Follow up: Response: No adverse reaction sv 10:02 Drug: morphine 4 mg Route: IVP; Site: left antecubital; sv 10:21 Follow up: Response: No adverse reaction; RASS: Drowsy (-1) sv 11:00 Drug: ProTONIX (pantoprazole) 40 mg Route: IVP; Site: left antecubital; sv 11:30 Follow up: Response: No adverse reaction sv 11:00 Drug: Dilaudid (HYDROmorphone) 1 mg Route: IVP; Site: left antecubital; sv 11:30 Follow up: Response: No adverse reaction; Marked relief of symptoms; Pain is decreased; sv RASS: Light sedation (-2) 11:00 Drug: NS 0.9% 1000 ml Route: IV; Rate: 125 ml/hr; Site: left antecubital; sv 12:30 Follow up: Response: No adverse reaction; IV Status: Infusion continued upon admission sv Disposition: 02/18/21 10:48 Hospitalization ordered by Fausto Wasserman for Observation. Preliminary diagnosis are Abdominal tenderness - intractable, Vomiting, Gastritis, unspecified. - Bed requested for Telemetry/MedSurg (observation). - Status is Observation. mg2 - Condition is Fair. - Problem is new. - Symptoms have improved. Signatures: Dispatcher [employer] EDMS Stefanie Almaguer Stephanie, RN RN sv Anderson, Corey, MD MD cha Gardose, Michele, RN RN mg2 Corrections: (The following items were deleted from the chart) 09:49 09:46 ECG was reviewed by the Attending Physician. [facility] 09:51 09:46 Rate is 83 beats/min. Rhythm is regular. QRS [place] is Normal. [place] interval is [facility] normal. QRS interval is normal. QT interval is normal. No Q waves. T waves are Normal. No ST changes noted. Clinical impression: Normal ECG and No evidence of ischemia. Interpreted by me. Reviewed by me. [facility] 13:27 10:48 Hospitalization Ordered by Fausto Wasserman MD for Observation. Preliminary sv diagnosis is Abdominal tenderness - intractable; Vomiting; Gastritis, unspecified. Bed requested for Telemetry/MedSurg (observation). Status is Observation. Condition is Fair. Problem is new. Symptoms have improved. sarah 18:46 13:27 02/18/2021 10:48 Hospitalization Ordered by Fausto Wasserman MD for Observation. bd Preliminary diagnosis is Abdominal tenderness - intractable; Vomiting; Gastritis, unspecified. Bed requested for [facility] ER HOLD. Status is Observation. Condition is Fair. Problem is new. Symptoms have improved. sv 19:29 18:46 02/18/2021 10:48 Hospitalization Ordered by Fausto Wasserman MD for Observation. mg2 Preliminary diagnosis is Abdominal tenderness - intractable; Vomiting; Gastritis, unspecified. Bed requested for Telemetry/MedSurg (observation). Status is Observation. Condition is Fair. Problem is new. Symptoms have improved. bd
[2021-02-18 11:15] LABS: Urine Blood Negative (Negative); Urine Glucose Negative (Negative); Urine Protein Negative (Negative); Urine pH 8.5 (5.0-7.0)
[2021-02-18] MEDS ORDERED: HYDROMORPHONE HCL 1 MG/ML INJ ONE ×2 (11:18→16:26)
[2021-02-18] MEDS ORDERED: PANTOPRAZOLE 40 MG INJ ONE (11:18)
[2021-02-18] MEDS ORDERED: MAGNES/ALUMIN/SIMET 30ML UCUP ONE (11:26)
[2021-02-18] MEDS ORDERED: LIDOCAINE VISCOUS 2% SOLN 15 ML UDC ONE (11:26)
[2021-02-18 11:52] LABS: Barbiturates NEGATIVE (NEGATIVE); Benzodiazepines NEGATIVE (NEGATIVE); Cocaine NEGATIVE (NEGATIVE); METHAMPHETAM NEGATIVE (NEGATIVE); Methadone NEGATIVE (NEGATIVE); Opiates POSITIVE (NEGATIVE); Phencyclidine NEGATIVE (NEGATIVE); THC Cannibis POSITIVE (NEGATIVE)
[2021-02-18] MEDS: NA CHLORIDE 0.9% 1,000 ML IV SCH ×2 (13:29→20:02)
[2021-02-18] MEDS ORDERED: HYDRALAZINE HCL 20 MG/ML VIAL IV PRN (13:29)
[2021-02-18] MEDS ORDERED: ACETAMINOPHEN 500 MG TAB PO PRN (13:29)
[2021-02-18] MEDS ORDERED: Levofloxacin500mg IV 500 MG/100 ML BAG IV SCH (14:00)
[2021-02-18] MEDS: HYDROMORPHONE HCL 1 MG/ML INJ IV PRN ×2 (16:00→20:19)
[2021-02-18 16:30] LABS: HDL Cholesterol 39 mg/dL (40-60); LDL Cholesterol, Calculated 88 (<130); NT PRO-BNP 80 pg/mL (<125); Troponin I < 0.02 ng/mL (0.0-0.045)
[2021-02-18 16:48] VITALS: BMI 29.2
--- NOTE | 2021-02-18 17:44 | P.HP ---
Certification for Inpatient Patient admitted to: Inpatient With expected LOS: >2 Midnights Patient will require the following post-hospital care: None Practitioner: I am a practitioner with admitting privileges, knowledge of patient current condition, hospital course, and medical plan of care. Services: Services provided to patient in accordance with Admission requirements found in Title 42 Section 412.3 of the Code of Federal Regulations Patient History Date of Service: 02/18/21 Reason for admission: Epigastric pain History of Present Illness: Patient is a 40-year-old male with a past medical history significant for hypertension, GERD, kidney stones who presents with complaint of epigastric pain onset this morning . Patient reports associated signs and symptoms of nausea, poor appetite and vomiting. Patient reported that he has been having diarrhea since 4 days ago. Patient reported that he has not been able to keep any p.o. intake down. Patient follows up with an outpatient shellfish meat separator operator. Patient reported that he saw his shellfish meat separator operator about a month ago and shellfish meat separator operator wanted to schedule an EGD. Patient reports abdominal pain of 10/10 in severity and described pain as cramping\throbbing\sharp in quality Patient denies any other signs and symptoms. Symptoms are aggravated or relieved by nothing. Patients decided to present to the hospital due to worsening symptoms. Allergies No Known Allergies Allergy (Unverified 12/21/16 20:12) Home medications list reviewed: No Home Medications: Ergocalciferol (Vitamin D2) [Vitamin D 50,000 Unit Cap] 1 tab PO DAILY 11/04/20 Fluoxetine HCl [Prozac*] 1 tab PO DAILY 11/04/20 Omeprazole [Prilosec] 40 mg PO DAILY 02/18/21 - Past Medical/Surgical History Diabetic: No -: KIDNEY STONES -: TIA -: Hypertension -: GERD - Family History Mother -: Diabetes, Cancer - Social History Smoking Status: Unknown if ever smoked Alcohol use: No CD- Drugs: No Place of Residence: Home Review of Systems General: Unremarkable Eyes: Unremarkable ENT: Unremarkable Respiratory: Unremarkable Cardiovascular: Unremarkable Gastrointestinal: Nausea, Vomiting, Abdominal Pain, Diarrhea, No Distention Genitourinary: Unremarkable Musculoskeletal: Unremarkable Integumentary: Unremarkable Neurological: Unremarkable Lymphatics: Unremarkable Physical Examination - Vital Signs Blood Pressure: 138/78 Pulse: 58 Respirations: 19 Pulse Ox (%): 95 - Physical Exam General: Alert, In no apparent distress, Oriented x3 HEENT: Atraumatic, PERRLA, Mucous membr. moist/pink, EOMI, Sclerae nonicteric Neck: Supple, 2+ carotid pulse no bruit, No LAD, Without JVD or thyroid abnormality Respiratory: Clear to auscultation bilaterally, Normal air movement Cardiovascular: No edema, Regular rate/rhythm, Normal S1 S2, Other Capillary refill: <2 Seconds Gastrointestinal: Normal bowel sounds, No tenderness Musculoskeletal: No clubbing, No tenderness Integumentary: No rashes Neurological: Normal gait, Normal speech, Normal strength at 5/5 x4 extr, Normal tone, Normal affect Lymphatics: No axilla or inguinal lymphadenopathy External genitalia: Deferred Rectal: Deferred - Studies Laboratory Data (last 24 hrs) 02/18/21 09:40: WBC 12.40 H, Hgb 15.4, Hct 46.1, Plt Count 298 02/18/21 09:40: Sodium 142, Potassium 3.8, BUN 10, Creatinine 1.03, Glucose 98, Total Bilirubin 0.5, AST 22, ALT 29, Alkaline Phosphatase 127 H, Lipase 83 Assessment and Plan - Plan --Enteritis. As noted on CT scan. Patient placed on antibiotics. Continue IV hydration. --Diarrhea. Stool studies pending to r\o any infectious process . Continue IV hydration. --Intractable abdominal pain. Gastroenterology consulted. Will await further recommendations from shellfish meat separator operator. --Acute pain. Will manage pain with current pain medication regimen. --Nausea and vomiting. Antiemetics on board. Continue IV hydration. -- Hypertension. Stable. Will manage BP with labetalol prn --GERD. Continue Protonix. --DVT prophylaxis with Lovenox SubQ. Discharge Plan: Home Plan to discharge in: 48 Hours - Advance Directives Does patient have a Living Will: No Does patient have a Durable POA for Healthcare: No - Code Status/Comfort Care Code Status Assessed: Yes Code Status: Full Code Critical Care: No
[2021-02-18] MEDS: METRONIDAZOLE 500mg IVPB 500 MG/100 ML BAG IV SCH (18:00)
[2021-02-18] MEDS ORDERED: SODIUM CHLORIDE 0.9% 10ML INJ IV PRN (18:05)
[2021-02-18] MEDS ORDERED: METRONIDAZOLE 500mg IVPB 500 MG/100 ML BAG IV ONE (18:11)
[2021-02-18] MEDS ORDERED: LABETALOL 20 MG/4ML SYRINGE IV PRN (18:11)
[2021-02-18] MEDS: ONDANSETRON 4 MG/2 ML VIAL IV PRN (19:41)
[2021-02-18] MEDS: PANTOPRAZOLE 40 MG INJ IVP SCH (20:56)
[2021-02-18] MEDS ORDERED: CIPROFLOXACIN 400mg IV 400 MG/200 ML BAG IV SCH (21:00)
[2021-02-19] MEDS: HYDROMORPHONE HCL 1 MG/ML INJ IV PRN ×4 (00:39→20:16)
[2021-02-19] MEDS: METRONIDAZOLE 500mg IVPB 500 MG/100 ML BAG IV SCH ×4 (00:40→17:29)
[2021-02-19] MEDS: ONDANSETRON 4 MG/2 ML VIAL IV PRN ×2 (00:41→20:16)
[2021-02-19 04:27] LABS: Hematocrit 41.3 % (39.6-49.0); RBC Red Blood Cell Count 4.75 M/uL (4.33-5.43)
[2021-02-19 04:28] LABS: Absolute Lymphocytes (CBC) 1.7 K/uL (0.7-4.9); Basophils % 0.1 % (0-1.3); Lymphocytes % 15.8 % (15.3-44.8); MPV 8.8 fL (7.6-11.3)
[2021-02-19 04:30] LABS: Urine Appearance CLEAR (Clear); Urine Bilirubin NEGATIVE (Negative); Urine Blood NEGATIVE (Negative); Urine Color YELLOW (Yellow); Urine Glucose NEGATIVE (Negative); Urine Protein NEGATIVE (Negative); Urine Specific Gravity 1.025 (1.005-1.030); Urine Urobilinogen 0.2 mg/dL (0.2-1.0)
[2021-02-19 04:33] LABS: Urine Microscopic Reflex NO UMIC
[2021-02-19 04:37] LABS: BUN Blood Urea Nitrogen 10 mg/dL (7-18); Bicarbonate 26 mmol/L (21-32); Glucose Level 96 mg/dL (74-106); Potassium 3.8 mmol/L (3.5-5.1); Sodium Level 141 mmol/L (136-145)
[2021-02-19] MEDS: PANTOPRAZOLE 40 MG INJ IVP SCH ×2 (10:11→20:09)
[2021-02-19] MEDS: ENOXAPARIN 40 MG/0.4 ML SQ SCH (10:11)
[2021-02-19] MEDS: NA CHLORIDE 0.9% 1,000 ML IV SCH ×2 (10:13→20:08)
[2021-02-19] MEDS: Levofloxacin500mg IV 500 MG/100 ML BAG IV SCH (16:18)
--- NOTE | 2021-02-19 16:24 | RAD REPORT ---
EXAM DESCRIPTION: RAD - Small Bowel Series - 02/19/2021 4:10 pm CLINICAL HISTORY: Epigastric pain COMPARISON: Abdomen Pelvis W Contrast dated 02/18/2021 FINDINGS: Coil Winder film shows a nonspecific bowel gas pattern. No obstruction or free air. No suspiciou s calcifications. Gastric size and mucosal fold pattern are normal. No delay in transit of contrast into the small jolie l. Proximal small bowel is mildly prominent in diameter and shows evidence for mild mucosal edema. Th [place] are minimal changes but could indicate enteritis. This is generally matching the prior day CT jevon dy. Distal small bowel is unremarkable. . No intrinsic or extrinsic mass identifiable. Terminal ileum has normal appearance. Transit time to the colon is 2 hours, upper normal. IMPRESSION: Mild prominence of the mucosal fold pattern and mild prominence of bowel diameter of the proximal small bowel noted. These are minimal findings but could indicate enteritis, matching the C T study. Transit time is upper normal at 2 hours.
--- NOTE | 2021-02-19 17:31 | P.PN ---
Subjective Date of Service: 02/19/21 Chief Complaint: Epigastric pain Subjective: Tolerating diet, Improving Patient seen and examined. Abdominal pain improving. Patient able to tolerated diet. Continue supportive care. Review of Systems General: Unremarkable Eyes: Unremarkable ENT: Unremarkable Respiratory: Unremarkable Cardiovascular: Unremarkable Gastrointestinal: Nausea, Unremarkable Genitourinary: Unremarkable Musculoskeletal: Unremarkable Integumentary: Unremarkable Neurological: Unremarkable Lymphatics: Unremarkable Physical Examination - Vital Signs Temperature: 97.8 F Blood Pressure: 123/66 Pulse: 57 Respirations: 16 Pulse Ox (%): 97 - Physical Exam General: Alert, In no apparent distress, Oriented x3 HEENT: Atraumatic, PERRLA, EOMI Neck: Supple, JVD not distended Respiratory: Clear to auscultation bilaterally, Normal air movement Cardiovascular: No edema, Regular rate/rhythm, Normal S1 S2 Capillary refill: <2 Seconds Gastrointestinal: Normal bowel sounds, Non-distended, No tenderness Musculoskeletal: No clubbing, No tenderness Integumentary: No rashes Neurological: Normal gait, Normal speech, Normal tone, Normal affect Lymphatics: No axilla or inguinal lymphadenopathy External genitalia: Deferred Rectal: Deferred Assessment And Plan - Plan --Enteritis. As noted on CT scan. Patient placed on antibiotics. Continue IV hydration. Patient shows considerable improvement from yesterday --Diarrhea. Resolved. Continue IV hydration. --Intractable abdominal pain. Gastroenterology on board. Recommends a small bowel series--pending. 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 --Acute pain. Will manage pain with current pain medication regimen. --Nausea. Antiemetics on board. Continue IV hydration. -- Hypertension. Stable. Will manage BP with labetalol prn --GERD. Continue Protonix. --DVT prophylaxis with Lovenox SubQ. Discharge Plan: Home Plan to discharge in: 24 Hours - Code Status/Comfort Care Code Status Assessed: Yes Code Status: Full Code Critical Care: No
[2021-02-20] MEDS: METRONIDAZOLE 500mg IVPB 500 MG/100 ML BAG IV SCH ×4 (00:45→17:20)
[2021-02-20] MEDS: HYDROMORPHONE HCL 1 MG/ML INJ IV PRN ×3 (03:00→16:58)
[2021-02-20] MEDS: ONDANSETRON 4 MG/2 ML VIAL IV PRN (03:00)
[2021-02-20 04:02] LABS: Absolute Lymphocytes (CBC) 2.6 K/uL (0.7-4.9); Basophils % 0.5 % (0-1.3); Hematocrit 39.3 % (39.6-49.0); Lymphocytes % 35.7 % (15.3-44.8); MPV 9.1 fL (7.6-11.3); RBC Red Blood Cell Count 4.46 M/uL (4.33-5.43)
[2021-02-20 04:23] LABS: BUN Blood Urea Nitrogen 12 mg/dL (7-18); Bicarbonate 28 mmol/L (21-32); Glucose Level 77 mg/dL (74-106); Potassium 3.6 mmol/L (3.5-5.1); Sodium Level 144 mmol/L (136-145)
[2021-02-20] MEDS: NA CHLORIDE 0.9% 1,000 ML IV SCH ×2 (05:29→17:19)
--- NOTE | 2021-02-20 07:25 | EKG ---
Test Date: 2021-02-18 Test Time: 10:29:31 [employer]: DEMETRIUS MEASUREMENT RESULTS: Intervals: Rate: 76 SD: 154 QRSD: 106 QT: 388 QTc: 436 Bronson: P: 58 SD: 154 QRS: 89 T: 58 INTERPRETIVE STATEMENTS: Normal sinus rhythm Normal ECG Compared to ECG 11/04/2020 05:46:23 Right-axis deviation no longer present Incomplete right bundle-branch block no longer present Electronically Signed On 02-20-21 07:18:53 CDT by Mukul Tarango
[2021-02-20] MEDS: ENOXAPARIN 40 MG/0.4 ML SQ SCH (08:49)
[2021-02-20] MEDS: PANTOPRAZOLE 40 MG INJ IVP SCH ×2 (08:49→20:01)
[2021-02-20] MEDS: FLUOXETINE 10 MG CAP PO SCH (08:50)
[2021-02-20 10:50] LABS: Blood Morphology Comment NOT SEEN (NOT SEEN); Platelet Estimate ADEQ
[2021-02-20] MEDS: Levofloxacin500mg IV 500 MG/100 ML BAG IV SCH (15:09)
--- NOTE | 2021-02-20 18:44 | P.PN ---
Subjective Date of Service: 02/20/21 Chief Complaint: Epigastric pain Patient with intractable pain on soft diet. No vomiting. Physical Examination - Vital Signs Temperature: 98.2 F Blood Pressure: 131/81 Pulse: 58 Respirations: 16 Pulse Ox (%): 95 - Physical Exam General: Alert, Mild distress (Due to pain) HEENT: Mucous membr. moist/pink Respiratory: Clear to auscultation bilaterally, Normal air movement Cardiovascular: No edema, Regular rate/rhythm, Normal S1 S2 Gastrointestinal: Normal bowel sounds, Soft and benign, Tenderness (Moderate tenderness.) Musculoskeletal: No swelling Integumentary: No rashes Neurological: Normal strength at 5/5 x4 extr Assessment And Plan - Current Problems (Diagnosis) (1) Intractable abdominal pain Current Visit: Yes Status: Acute (2) GERD (gastroesophageal reflux disease) Current Visit: Yes Status: Acute (3) Enteritis Current Visit: Yes Status: Acute (4) Hypertension Current Visit: Yes Status: Acute - Plan Continue supportive measures. Continue PPI. IV hydration Continue IV antibiotics. Antiemetics as needed. Small-bowel ozzxja-jqsowxe-hrjwfbzhspei with some evidence of enteritis. Full liquid diet. GI is following.
[2021-02-21] MEDS: HYDROMORPHONE HCL 1 MG/ML INJ IV PRN (00:09)
[2021-02-21] MEDS: METRONIDAZOLE 500mg IVPB 500 MG/100 ML BAG IV SCH ×4 (00:10→17:19)
[2021-02-21] MEDS: NA CHLORIDE 0.9% 1,000 ML IV SCH ×3 (01:29→14:26)
[2021-02-21 04:14] LABS: Absolute Lymphocytes (CBC) 2.6 K/uL (0.7-4.9); Basophils % 0.5 % (0-1.3); Hematocrit 39.9 % (39.6-49.0); Lymphocytes % 29.8 % (15.3-44.8)
[2021-02-21 04:28] LABS: ALT/SGPT 61 U/L (12-78); AST/SGOT 34 U/L (15-37); Albumin 3.1 g/dL (3.4-5.0); Alkaline Phosphatase 154 U/L (45-117); BUN Blood Urea Nitrogen 9 mg/dL (7-18); Bicarbonate 30 mmol/L (21-32); Bilirubin Total 0.4 mg/dL (0.2-1.0); Glucose Level 92 mg/dL (74-106); Sodium Level 144 mmol/L (136-145)
[2021-02-21] MEDS: FLUOXETINE 10 MG CAP PO SCH (08:31)
[2021-02-21] MEDS: ENOXAPARIN 40 MG/0.4 ML SQ SCH (08:31)
[2021-02-21] MEDS: PANTOPRAZOLE 40 MG INJ IVP SCH (08:36)
[2021-02-21 10:51] VITALS: O2SAT 93
--- NOTE | 2021-02-21 10:54 | P.PN ---
Subjective Date of Service: 02/21/21 Chief Complaint: Epigastric pain Patient with intractable pain on soft diet yesterday. He tolerated liquid diet the rest of the day. No vomiting. He states abdominal pain is better this morning. Physical Examination - Vital Signs Temperature: 97.4 F Blood Pressure: 131/65 Pulse: 64 Respirations: 16 Pulse Ox (%): 95 - Physical Exam General: Alert, In no apparent distress, Oriented x3 HEENT: Mucous membr. moist/pink Neck: JVD not distended Respiratory: Clear to auscultation bilaterally, Normal air movement Cardiovascular: No edema, Regular rate/rhythm, Normal S1 S2 Gastrointestinal: Normal bowel sounds, Soft and benign, Non-distended, Tenderness (Moderate tenderness on palpation.) Musculoskeletal: No swelling, No erythema Integumentary: No rashes Neurological: Normal strength at 5/5 x4 extr Assessment And Plan - Current Problems (Diagnosis) (1) Intractable abdominal pain Current Visit: Yes Status: Acute (2) GERD (gastroesophageal reflux disease) Current Visit: Yes Status: Acute (3) Enteritis Current Visit: Yes Status: Acute (4) Hypertension Current Visit: Yes Status: Acute - Plan Continue supportive measures. Continue PPI. IV hydration Continue IV antibiotics. Antiemetics as needed. Small-bowel vsvqob-rzigfrf-dpchsbqezydg with some evidence of enteritis. Advanced to soft diet today GI input appreciated. Would repeat CT abdomen if patient is again not able to tolerate soft diet.
[2021-02-21] MEDS: Levofloxacin500mg IV 500 MG/100 ML BAG IV SCH (14:26)
[2021-02-21 16:41] VITALS: BP 137/81; TEMP 97.7
--- NOTE | 2021-02-21 17:03 | P.DS ---
Admission Date: 02/18/21 Discharge Date: 02/21/21 Disposition: ROUTINE DISCHARGE Discharge Condition: FAIR Reason for Admission: Epigastric pain - Problems (1) Intractable abdominal pain Current Visit: Yes Status: Acute (2) GERD (gastroesophageal reflux disease) Current Visit: Yes Status: Acute (3) Enteritis Current Visit: Yes Status: Acute (4) Hypertension Current Visit: Yes Status: Acute Brief History of Present Illness: 40-year-old gentleman with a past medical history of hypertension, GERD, kidney stones presented to the emergency department with a complaint of epigastric pain associated with nausea and vomiting and diarrhea. Patient was evaluated by Dr. Mcduffie with an EGD. He has also undergone cholecystectomy. He was complain ing of severe abdominal pain of 10/10 in intensity. Patient was not tolerating oral intake without nausea and vomiting. CT abdomen and pelvis reported a few prominent small bowel loops indicating of enteritis. He was admitted for further management Hospital Course: Patient admitted to the medical floor and put on supportive measures including IV fluids, IV opioids p.r.n. for pain. He was treated with IV Protonix for GERD and gastritis. He was seen in consultation by GI-Dr. Mcduffie who recommended to continue supportive measures with PPI. He was also put on IV antibiotics for enteritis. His abdominal pain gradually improved with treatment. He was started on clear liquid diet and advanced to soft diet which he eventually tolerated. He has clinically improved and deemed stable for discharge. Vital Signs/Physical Exam: Temp Pulse Resp BP Pulse Ox 97.7 F 59 16 137/81 96 02/21/21 16:00 02/21/21 16:00 02/21/21 16:00 02/21/21 16:00 02/21/21 16:00 General: Alert, In no apparent distress, Oriented x3 HEENT: Mucous membr. moist/pink Respiratory: Clear to auscultation bilaterally, Normal air movement Cardiovascular: No edema, Regular rate/rhythm, Normal S1 S2 Gastrointestinal: Normal bowel sounds, Soft and benign, Non-distended, Tenderness (Mild tenderness on deep palpation) Musculoskeletal: No swelling Integumentary: No rashes Neurological: Normal strength at 5/5 x4 extr Laboratory Data at Discharge: WBC 8.60 K/uL (4.3-10.9) D 02/21/21 03:25 Hgb 13.2 g/dL (13.6-17.9) L 02/21/21 03:25 Hct 39.9 % (39.6-49.0) 02/21/21 03:25 Plt Count 245 K/uL (152-406) 02/21/21 03:25 Sodium 144 mmol/L (136-145) 02/21/21 03:25 Potassium 4.0 mmol/L (3.5-5.1) 02/21/21 03:25 BUN 9 mg/dL (7-18) 02/21/21 03:25 Creatinine 0.79 mg/dL (0.55-1.3) 02/21/21 03:25 Glucose 92 mg/dL (74-106) 02/21/21 03:25 Total Bilirubin 0.4 mg/dL (0.2-1.0) 02/21/21 03:25 AST 34 U/L (15-37) 02/21/21 03:25 ALT 61 U/L (12-78) 02/21/21 03:25 Alkaline Phosphatase 154 U/L (45-117) H 02/21/21 03:25 Troponin I < 0.02 ng/mL (0.0-0.045) 02/19/21 03:51 Triglycerides 48 mg/dL (<150) 02/18/21 16:04 Cholesterol 137 mg/dL (<200) 02/18/21 16:04 HDL Cholesterol 39 mg/dL (40-60) L 02/18/21 16:04 Cholesterol/HDL Ratio 3.51 02/18/21 16:04 Lipase Cancelled 02/18/21 Unknown Home Medications: Ergocalciferol (Vitamin D2) [Vitamin D 50,000 Unit Cap] 1 tab PO DAILY 11/04/20 Fluoxetine HCl [Prozac*] 1 tab PO DAILY 11/04/20 Omeprazole [Prilosec] 40 mg PO BID #60 capsule. 02/21/21 levoFLOXacin [Levaquin] 500 mg PO DAILY #3 tab 02/21/21 metroNIDAZOLE [Flagyl] 500 mg PO Q8H #9 tablet 02/21/21 New Medications: metroNIDAZOLE [Flagyl] 500 mg PO Q8H #9 tablet levoFLOXacin [Levaquin] 500 mg PO DAILY #3 tab Omeprazole [Prilosec] 40 mg PO BID #60 capsule. Diet: AHA (Soft diet for the next 3 days and then advance as tolerated.) Followup: Thang Mcduffie MD [ACTIVE - CAN ADMIT] - 1-2 Weeks (call to schedule appointment) Unknown,U [Primary Care Provider] - Time spent managing pt's care (in minutes): 36
== END 2021-02-21 19:05 | disposition home or self-care (01) | DRG 392 ==
LOC: ER 09:23 → ERHOLD 11:37 → 4TH 19:21
PROVIDERS: ADMIT Internal Medicine; ATTEND Internal Medicine
DX: K52.9 Noninfective gastroenteritis and colitis, unspecified (principal); I10 Essential (primary) hypertension; K29.70 Gastritis, unspecified, without bleeding; K21.9 Gastro-esophageal reflux disease without esophagitis; Z79.899 Other long term (current) drug therapy; Z86.73 Personal history of transient ischemic attack (TIA), and cerebral infarction without residual deficits; Z20.822 Contact with and (suspected) exposure to COVID-19
CPT/HCPCS: 36415; 74177; 74250; 80048; 80053; 80061; 80076; 80307; 81003; 82565; 83690; 83880; 84484; 85025; 87040; 93005; 96361; 96374; 96375; 99285; C9113; J0744; J1170; J1650; J2405; J2550; J7030; Q9967; U0003

== ENCOUNTER 2021-03-14 14:11 | Emergency (ER) | payer SELFPAY ==
--- OUTSIDE RECORDS SUMMARY | 2021-03-14 14:14 | XMS REPORT | Continuity of Care Document ---
:1980 Author Organization [facility] t Address [address] [place] [address] Dr. [address] [place] [address] Care Team Providers Name Role Phone Pcp MD Primary Care Physician Unavailable Doctor Unassigned, Name Attending Clinician Unavailable Nikhil Cisneros MD Attending Clinician KAYCE Attending Clinician Unavailable Kayce GUAMAN Attending Clinician Tyrone Jim MD Attending Clinician Megan Castellanos MD Attending Clinician [phone] Светлана Mann MD Attending Clinician [phone] Rubens Caldwell MD Attending Clinician Martha [...] Disease Active C [facility] lithiasis lithiasis 1- [facility] - 00:00: Medical 00 Center [...] Date Stop Date Quantity Comments Source History [facility] - Alcohol Std Drinks Medica l Center History [facility] Alcohol Binge Medical Roddy ter Sex Assigned At [facility] Tobacco use and 2020-11-11 2020-11-11 Never used [facility] - exposure 00:00:00 00:00:00 [facility] Alcohol intake 2020-11-11 2020-11-11 [facility] Medical Center History SDOH 2020-11-07 2020-11-[address] [facility] - Alcohol Frequency 00:00:00 00:00:00 [facility] Smoking Status Start Date Stop Date Source Current every day smoker 2020-11-11 00:00:00 [facility] Medications Ordered Filled Start Stop Current Ordering Indication Dosage Frequency Signature Comments Components Source Medication Medication Date Date Medication? Clinician (SIG) Name Name fluoxetine Yes 5mg QD Take [address] HCl 11-10 by mouth [facility] - (FLUOXETINE 10:10: daily 5mg M edical ORAL) 23 per Center patient (pharmacy review says 10mg). traMADoL 50mg Take [address] (ULTRAM) 50 11-10 02-03 tablet (50 L ukes - mg tablet [...] Source Systolic blood 2020-11-10 08:15:00 143 mm[Hg] [facility] Diastolic blood 2020-11-10 08:15:00 73 mm[Hg] [facility] Heart rate 2020-11-10 08:15:00 60 /min [facility] Body temperature 2020-11-10 08:15:00 36.83 Abeba [facility] Respiratory rate 2020-11-10 08:15:00 18 /min [facility] Oxygen saturation in 2020-11-10 08:15:00 95 /min [facility] Arterial blood by Medical Ce nter Pulse oximetry Body height 2020-11-07 15:01:00 180.3 cm [facility] Body weight 2020-11-07 15:01:00 81.647 kg [facility] BMI 2020-11-07 15:01:00 25.10 kg/m2 [facility] Procedures Procedure Date / Time Performed Performing Clinician [facility] e BASIC METABOLIC PANEL 2020-11-10 03:28:00 Lis Jim [facility] ([address] [place] [address] MAGNESIUM 2020-11-10 03:28:00 WaltamLis [facility] CBC W/PLT COUNT & AUTO 2020-11-10 03:28[facility]00 [facility] HEPATIC FUNCTION PANEL 2020-11-10 03:28:00 [facility] TISSUE EXAM 2020-11-09 08:59:00 Kimberly Mann [facility] LAPAROSCOPY,CHOLECYSTECT 2020-11-09 07:35:00 Joe Mann [facility] CBC W/PLT COUNT & AUTO 2020-11-09 03:59:00 Nalam, Lis [facility] HEPATIC FUNCTION PANEL 2020-11-09 03:59:00 Nal [facility] BASIC METABOLIC PANEL 2020-11-09 03:59:00 Nalam, [facility] (7) [facility] MAGNESIUM 2020-11-09 03:59:00 Isatu, [facility] ABORH, MANUAL 2020-11-08 04:37:00 Pepper Joseph [facility] LIPASE 2020-11-08 03:32:00 Ronn [facility] BASIC METABOLIC PANEL 2020-11-08 03:32:00 Isatu [facility] (7) [facility] MAGNESIUM 2020-11-08 03:32:00 Isatu [facility] CBC W/PLT COUNT & AUTO 2020-11-08 03:32:00 Walt [facility] PROTHROMBIN TIME/INR 2020-11-08 03:32:00 [facility] APTT 2020-11-08 03:32[facility]00 [facility] 2020-11-08 03:32[facility]EN, 2020-11-08 03:32:00 [facility] SARS-COV2/RT-PCR ([facility] & 2020-11-07 21:59:00 [facility] Center REPORT OF PROCEDURE - 2020-11-07 17:33:[address] [facility] - ENDOSCOPY [facility] [place] ERCP 2020-11-07 15:58:00 Khoa Esteban [facility] TISSUE EXAM 2020-11-07 15:21:00 Eleno Keane [facility] ERCP 2020-11-07 14:56:00 Eleno Keane [facility] PROCEDURE W/ C-ARM 2020-11-07 14:56:00 Eleno Keane [facility] ERCP,PAPILLOTOMY 2020-11-07 14:56:00 Eleno Keane [facility] ERCP,BALLOON SWEEPING 2020-11-07 14:56:00 [facility]PPER ENDOS[facility],BIOPSY 2020-11-07 14:56:00 DiyaEleno [facility] MR BRAIN WITHOUT IV 2020-07-08 18:07:00 Bowser, [facility] MRA HEAD WITHOUT IV 2020-07-08 18:07:00 Bowser, [facility] MRA NECK WITHOUT IV 2020-07-08 18:07:00 Bowser, [facility] Plan of Care Planned Activity Planned Date Details Comments Source Future Scheduled 2020-10-[address] [facility] - Test 00:00:00 (12+) [code = Medical Center DEPRESSION SCREENING (12+)] Future Scheduled 2020-06-18 INFLUENZA VACCINE (#1) [facility] 00:00:00 [code = INFLUENZA Medical Ce nter VACCINE (#1)] Future Scheduled 2014 Lipid panel [facility] Luke s - Test 00:00:00 (procedure) [code = [facility] Center [id number]] Future Scheduled 1998 DTAP/TDAP/TD VACCINES CH I [...] ID 2020-12-12 2020-12-12 Orders Doctor RODRIGUEZ [id number] 00:00:00 00:00:00 Only Unassigned, PARVIN [id number] Nelsonia [facility] 4.2.7.2.686 [id number] [id number] 2020-11-30 2020-11-30 Telephone [facility] [id number] 00:00:00 00:00:00 Boo Tejeda Trudy [id number] [place] 4.2.7.2.686 Professio [phone] [address] 2020-10-31 2020-10-31 [facility] [id number] 00:00:00 00:00:00 Boo [place] [id number] [place] 4.2.7.2.686 Professio [phone] [address] 2020-09-06 2020-09-06 Orders Doctor JENNIFER 1.2.840.114 [id number] 00:00:00 00:00:00 Only Unassigned, PARVIN 350.1.13.10 Nelsonia [facility] 4.2.7.2.686 [id number] [id number] 2020-08-18 2020-08-18 Orders Doctor JENNIFER 1.2.840.114 [id number] 00:00:00 00:00:00 Only Unassigned, PARVIN 350.1.13.10 [place] [address].2.7.2.686 [id number] [id number] 2020-08-06 2020-08-14 Office [facility] 1.2.840.114 [id number] 08:52:45 13:22:47 Visit Boo Yates 350.1.13.10 [place] 4.2.7.2.686 Professio [phone] [address] Results Test Description Test Time Test Comments Results Result Comments Source Tissue Exam 2020-11-13 14:50:00 Test Item Value Reference Range Interpretation Comme nts Case Report (test code = 104) Surgical Pathology Report Case: [id number] Authorizing Provider: Kimberly Mann Collected: 11/09/2020 08:59 AM MD Светлана Ordering Location: [address] Received: 11/11/2020 08:24 AM Service Pathologist: Anahi León MD Specimen: Gallbladder DIAGNOSIS (test code = 3220) i3sokTIfFOLjbED5CzCqEEYay3tus7FiwLZbtK Fy WKrdyJAqanChah26jID6pR04WG4gZLLaWsY3IYUu fzX0Fsu6GHUtLQJvfJEdA012s8brv8scfiPteNC5 zLurKWZrWMJgSRlzMXHgLsOwWUkcqbEhlIMkEH5s lhUuoFTpyJYgiZZdSUOjKGLnzuSpR7UuXUK3ptPo m9HreET3cS6vZIhgRIWid1JaPEpfTEOedFJiIOYy VVwWHKtZKSOWZUDXBQRBFC8OOQMZF4FPD7QVNTu3 JXFpwvCyTIVgAN2oJ9vZZ19YPlZNIZ9IRSSDQ3YI TSzZUbzqHONsGtNgKlk0UBUpdJKyCKHnSng0HNXq hYLcZFTTvGqxmP8bSHRycUwptR5rwHN4EPFabpFd wDLEeE9kAAFHiI8lHqF7ToLwJiX1NWL8MFiaeFOz fQ== CPT Code(s) (test code = 3357) g1jygBNzGKYojIO2UuYkTPCvc6nur2ErfVHt cGFy YRlayQRfycGyhw69rUX3qE01PX4jZDWfDjM3ZNBk aaV0Uwk7ABKsIYVlhHSnM823x8low0euplSkhOF6 fVxwYXJkXHBsYWluXGZzMjAgODgzMDRccGFyfQ== CLINICAL HISTORY (test code = 3356) l1ndsFOkRPHssES7XmYqUAPee0hwk1M sdHBncGFy LZzezZOukfNpyu36fQO6fR57JU3pQCMjEpN2VKYi wsM0Job2APQeJZKjuGAqO696t9omp7trxgKylYT5 yOaeURGpVELyGTveFLHfJcZcWDNmq31lrhVfTPYx bZ5orDRisJ== SPECIMEN SOURCE (test code = 3377) j8tuvONaYOAieDU6IxWqEFOkj9kig7Eq dHBncGFy SCezmURikwUgps26wZD1bL97ZX1wZHUpHvE1ZUQs rfQ7Ihi7PPUxSXFilAVxW619i4ycz4bvifPtzJV1 uMjjVOSiRFXuXXrjAZSpKsKpH2BjmMXmLSSkPLJn cGFyfQ== GROSS DESCRIPTION (test code = 3366) o8uisEEkEDEjuOPeZjHaTLKjOMVxo6 lcZGVmbGFu XfXnDrOuBlLxBtmxxHOuQTPkHtUnm9zjj244fLAv e2oqBAXeCfW7aBHsWMAnySOzG204b3smq1duqyVx vAO7HSWkDKE8WJhneaPdxvX8ZDcruYGpVkR3PStv mlDpJJqxtnOfghPuVcd4LZCaH793MIB0bBqzf5nm WLD0XUNkETRcStWhHj7swDCfY225ECEwLHLZRGRe bVj2UOUulfVufxGtvNNUl937J015w5caBCDpeeBu zRnQgjybe2xbA996PFLkmCAeulKyZbLtJEZqePUv iAK1BRZxFB0waoucHtQpLT3ngokwZcLsVL6eusi8 SwEoIZ3emaziRmTtUHsdIPWdswppEAHkm4Evjust LB6lJ3Fsv4Q4dR3kdYRoDLLzbWKvYyJmOSMyvn4m qEEzQBczl4FeTEZ3ysC8rIIizMOxXJEsAE01Ogzv l3FmQvngBFC9RGMdmiIkj5Qyr1joAsScxfOlS3xy Z3KaYHFtFSAuRJHuLgKzpwGrw2Jlp2LxqIEfdDm9 w0hsBIAeFOVphAkcg6mnIEA6OSUxN5N9sQGed3az EKvzQDFtqPM8cssmQBjxCLMbhvV6fawfDVplIAFn rGK0rmwtSTuqCDMiCiW4nbpdISkkKORyVAM4YZcl i961XQU4GDboOpgiDSshPVRuosPqtgMnfEphJQMo EGDkIHdqRRYoUNjkCGCpGXHlYjPbpTjyfWhumF5w SlJjEpXmYYpwQG7qFETtH4htzCKgZCPpVKXhR5xf GvCpkT9bwTibYWmmrhPyREQeJMOmF5MuvwUyFWZc ZXNoLCBsYWJlbGVkIHdpdGggdGhlIHBhdGllbnQn wzEeZG9lBKCFOn0rQJ8tLQLtMCoiKgudIDRpzpYe RE4eWMPsisKof1DxVM5oIILsFHwqcHIiuQSmRIqu PssdPEKhcoEhQw7jGLljPuS7LKLvV00oPPosjWNg WEhofcTiNRXgyZGvqUOdyNI3iZYqKDNmkP0uDJsq HATkxx9vLFQfkrUaGZ1clqKkNFNvtS7jeZwgd3j4 yPXfNWOfM8tzGWlecXNna4OyeBDiHRQnhY1ktOup AN1cP0yiWT7iUDA5zeE6jd1eWTIepSO5yDYpGJEz gGDkmJ7ohJJxc8FaWVyeZJ7jeJVjisMaGP19QqLQ xLCsC2VgoAXwAWJfXXFrbDUcg7HefzXvYQLzREYu cqCooTGqYGZqNJpcFKBnk8NvvTIuRsXhbUtyUiDj Bd5gR2lmbYXpxNTjkkEaulCrnRYkrhBtMtclGACv bpD4fCMdp9XoY9ijQT6th8Yfi6YgT0nqKZ5nP97s eTGafxIuYsZZfDBgiEMds3ToAQhiIPGzfm5oueWo hmHnbpZvyZKjXzBfxWkrwWMcJkYKdXNfv5IflRM0 jWmwo53hc2XvjwSrV9IoHNPwSR1xRyLwH93hYW9v YRalo7ZqUXijl3wnwwEyTPTgHGmhDV76rDAmXEGk XYOdmQFeg7TgeVI0pJNeVAKdN0Jdm36bNBBpKCCw sVXmdMI0OLYwSRGqtcrxLGDkV3VybUizmwKzl9Rq BWUcwrMDZJnmA9ttlIqoFFT8C5TqaUWsF0yeUUqj mZNdJFmqUW1rCkAiMKdfFUJgXUP1MQuuuDekzNHu ODUgWKfcoKbtuEGkCHItixXKvQDiv8BgWKqnCTOy NDDKIBTcZBEVOMkBH2GKIIHkKOZfov3= MICROSCOPIC DESCRIPTION (test code = g9hpzWOuWUBtgVM9HtHgONYgb9xha4 BsdHBncGFy 3370) IAauoNIikqDfzx33fVQ3yV51JR1kOOOrOnA0HSRb yzU2Oki4OJYoEWPsoFXaR675l4cal1fscrOsyYU0 uTdjNVKhJETpAMexQJYoVsDgCRDwEn7fhHOzWdjq YXJ9 Gross assessment was performed at (test [facility] enter, code = 2777) Department of Pathology, [address] [place] [address], Technical component was performed at [facility] er, (test code = 2778) Department of Pathology, [address] [place] [address], Professional component was performed at [facility] enter, (test code = 2779) Department of Pathology, [address] [place] [address], [facility] Center[facility] [id number] 14:50:00Surgical Pathology Report Case: [id number] Authorizing Provider: Kimberly Mann Collected: 11/09/2020 08:59 AM MD Светлана [facility] Received: 11/11/2020 08:24 AM Service Pathologist: Anahi León MD Specimen: Gallb ladder This amendment is issued to correct a transcriptional error. A. GALLBLADDER, CHOLECYSTECTOMY: - CHRONIC CHOLECYSTITIS. Signing Pathologist Direct Phone Line: [phone] electronically signed by Anahi León MD on 11/13/2020 at 2:50 PM [id number] painGallbladderA. Received fresh, labeled with the patient's [...] 0.1-0.3 cm. No gross lesions are identified. Injection Moulding Machine Operator sections are submitted.Section codeA1: Cystic duct margin (blue), en faceA2: Gallbladder wallChelsea CHRISTIAN Buitrago PA (ASCP)cmPerformed.[facility], Department of Pathology, [address] [place] [address], FtmfvpVA [facility], Department of Pathology, [address] [place] [address], OegtwpVA [facility], Department of Pathology, [address] [place] [address], CSFJSY [id number] 11:14:00Surgical Pathology Report Case: [id number] Authorizing Provider: Eleno Keane MD Collected: 11/07/2020 03:21 PM Ordering Location: [address] Received: 11/08/2020 08:02 AM Service Pathologist: [...] OR MALIGNANCY Signing Pathologist Direct Phone Line: [phone] signed by Yadira Gardner MD on 11/08/2020 at 3:25 PMB. GMS stain is pending and will be reported in an addendum.[id number] obstructionA. DuodenumB. Esophagus, distalA. Received informalin labeled with the patient's name, medical record number and "duodenum" and consists of 4 tansoft tissue fragments ranging 0.2-0.3 cm submitted in toto in A1.B. Received in formalin labeled with the patient's name, medical record number and "distal esophagus" and consists of 4 white soft tissue fragments ranging 0.1-0.2 cm submitted in toto in B1.CHRISTIAN Monroe PA ([facility])cmPerformed.The interpretation of this case included the use of immunohistochemistry or special stains.Control Slides Examined: In-house known positive controls were evaluated along with the test tissue. These control slides run alongside of the patients sample show appropriate staining. Internal positive and negative controls when available are evaluated Immunohistochemistry technical testing was performed at [facility], Pathology Laboratory where it was developed [...] perform high complexity clinical laboratory testing.Basic metabolic [id number] 04:30:00 Test Item Value Reference Range Interpretation Comments Sodium (test code = 140 meq/L 972-477 0452-2) Potassium (test code = 3.6 meq/L 3.5-5.1 2823-3) Chloride (test code = 108 meq/L 98-107 H 2075-0) CO2 (test code = 26 meq/L 22-29 2028-9) BUN (test code = 10 mg/dL 7-21 3094-0) Creatinine (test code 0.72 mg/dL 0.57-1.25 = 2160-0) Glucose (test code = 119 mg/dL 70-105 H 2345-7) Calcium (test code = 8.1 mg/dL 8.4-10.2 L 40095-3) EGFR (test code = 120 mL/min/1.73 sq [place] [address]-8) NOT ACCURATE CREATININE CLEARANCE IN PREDICTING GLOMERULAR FILTRATION RATE . ESTIMATED GFR I S NOT APPLICABLE FOR DIALYSIS PATIENTS. TUCKER (test code = TUCKER) Botany Laboratory Assistant ID - EDASI Lab Interpretation Abnormal (test code = 32917-1) [facility] Center[facility]atic function [id number] 04:30:00 Test Item Value Reference Range Interpretation Comments Protein, Total (test 5.4 See_Comment L [Autom ated code = 2885-2) message] The system which generated this result transmit sourav reference range : 6.0 - 8.3 gm/dL . The reference range was not u sed to interpret th is result as normal/abnormal . Albumin (test code = 3.2 g/dL 3.5-5 L 82078-4) Total Bilirubin (test 0.3 mg/dL 0.2-1.2 code = 1974-2) Bilirubin, Direct 0.2 mg/dL 0.1-0.5 (test code = 1967-7) Alkaline Phosphatase 105 U/L 40-150 (test code = 6768-6) AST (test code = 22 U/L 5-34 1920-8) ALT (test code = 26 U/L 6-55 1742-6) TUCKER (test code = TUCKER) Botany Laboratory Assistant ID - EDASI Lab Interpretation Abnormal (test code = 79824-1) [facility] CenterMagnesium2021-01-24 04:30:00 Test Item Value Reference Range Interpretation Comments Magnesium (test code = 1.8 mg/dL 1.6-2.6 08163-4) TUCKER (test code = TUCKER) Botany Laboratory Assistant ID - EDASI Lab Interpretation (test Normal code = 98728-0) [facility] CenterBASIC METABOLIC [id number] 04:30:00 Test Item Value Reference Range Interpretation [...] S NOT APPLICABLE FOR DIALYSIS PATIEN TS. Botany Laboratory Assistant ID - [id number] 04:30:00 Test Item Value Reference Range Interpretation Comments MAGNESIUM (BEAKER) (test code = 1.8 mg/dL 1.6-2.6 627) Botany Laboratory Assistant ID - EDASIHEPATIC FUNCTION [id number] 04:30:00 Test Item Value Reference Range Interpretation [...] (test code = 26 U/L 6-55 347) Botany Laboratory Assistant ID - EDASICBC with platelet count + automated [id number] 03:48:00 Test Item Value Reference Range Interpretation Comments WBC (test code = 6690-2) 11.3 See_Comment H [A utomated message] The system [employer] generated this result transmitted ref erence range: 3.5 - 10 .5 K/L. The refe rence range was not u sed to interpret this result as normal/abnor mal. RBC (test code = 789-8) 3.71 See_Comment L [Au tomated message] The system [employer] generated this result transmitted ref erence range: 4.63 - 6 .08 M/L. The refe rence range was not u sed to interpret this result as normal/abnor mal. MCHC (test code = 786-4) 33.2 See_Comment L [A utomated message] The system [employer] generated this result transmitted ref erence range: [...] code = 242 See_Comment [Aut omated message] 887-3) The system [employer] generated this result transmitted ref erence range: 150 - 45 0 K/CU MM. The referen ce range was not u sed to interpret this result as normal/abnor mal. MPV (test code = 10.8 fL 9.4-12.4 74150-1) nRBC (test code = 413) 0 See_Comment [Aut omated message] The system [employer] generated this result transmitted ref erence range: [...] H [Aut omated message] 670) The system [employer] generated this result transmitted ref erence range: 1.78 - 5 .38 K/L. The refe rence range was not u sed to interpret this result as normal/abnor mal. # Lymphs (test code = 2.59 See_Comment [Auto mated message] 414) The system [employer] generated this result transmitted ref erence range: 1.32 - 3 .57 K/L. The refe rence range was not u sed to interpret this result as normal/abnor mal. # Monos (test code = 1.46 See_Comment H [Autom ated message] 415) The system [employer] generated this result transmitted ref erence range: 0.30 - 0 .82 K/L. The refe rence range was not u sed to interpret this result as normal/abnor mal. # Eos (test code = 416) 0.13 See_Comment [Au tomated message] The system [employer] generated this result transmitted ref erence range: 0.04 - 0 .54 K/L. The refe rence range was not u sed to interpret this result as normal/abnor mal. # Baso (test code = 417) 0.02 See_Comment [A utomated message] The system [employer] generated this result transmitted ref erence range: 0.01 - 0 .08 K/L. The refe rence range was not u sed to interpret this result as normal/abnor mal. Immature 0 % 0-1 Granulocytes-Relative (test code = 2801) Lab Interpretation (test Abnormal code = 88863-8) [facility] W/PLT COUNT & AUTO [id number] 03:48:00 Test Item Value Reference Range Interpretation [...] 0-1 PERCENT (BEAKER) (test code = 2801) [id number] 05:11:00 Test Item Value Reference Range Interpretation Comments MAGNESIUM (BEAKER) (test code = 1.8 mg/dL 1.6-2.6 627) Botany Laboratory Assistant ID - ADMINHEPATIC FUNCTION [id number] 05:11:00 Test Item Value Reference Range Interpretation [...] (test code = 29 U/L 6-55 347) Botany Laboratory Assistant ID - ADMINBASIC METABOLIC [id number] 05:11:00 Test Item Value Reference Range Interpretation [...] S NOT APPLICABLE FOR DIALYSIS PATIEN TS. Botany Laboratory Assistant ID - ADMINCBC W/PLT COUNT & AUTO [id number] 04:33:00 Test Item Value Reference Range Interpretation [...] Not Detected, (test code = Negative, See 63926-9) external report for linked test SARS-COV-2 [facility] (test code = 98054-1) TUCKER (test code = Negative result for [...] of the Act. Fact Sheet for Healthcare Providers:https://www.[employer].com/sites/default/f shayla/product/documents/F act_Sheet_HC_Providers_L kxm_CUIP-RdY-6.pdf Fact Sheet for Healthcare Patients:https://www.[employer].com.com/sites/default/fi les/product/documents/Fa ct_Sheet_Patients_Ly_S ARS-CoV-2.pdf Performing Laboratory:[facility] [place] [address] [facility] REF [facility])2020-11-08 09:38:00 Test Item Value Reference Range Interpretation Comments SARS-COV2/RT-PCR (test Negative Not Detected, Negative, code = 8588078) See external report for linked test SARS-COV-2 PERFORMING LAB [facility] (test code = 1197751) Negative result for this test determines that [...] 564(g) of the Act.Fact Sheet for Healthcare Providers:https://www.[employer]/sites/default/files/product/documents/Fact_Mulugeta chasee_DO_Bamdktpib_Gtsi_FBHT-GfJ-7.pdfFact Sheet for Healthcare Patients:https://www.[employer]/sites/default/files/product/ documents/Dnvz_Duvcy_Lcmbzfow_Rvwo_WQSD-IeY-7.pdfPerforming Laboratory:[facility], [place] [address]JJATO, manual 2020-11-08 05:35:00 Test Item Value Reference Range Interpretation Comments ABO Grouping (test code = 2588) O Rh Factor (test code = 2589) POS [facility] CenterType and screen, [id number] 05:10:00 Test Item Value Reference Range Interpretation Comments ABO/RH AUTOMATED (BEAKER) (test O POSITIVE code = 2260) Ab Scrn (test code = 890-4) NEGATIVE [facility] CenterLipase2021-01-22 04:42:00 Test Item Value Reference Range Interpretation Comments Lipase (test code = 12 U/L 878 3040-3) TUCKER (test code = TUCKER) Botany Laboratory Assistant ID - DANA W Lab Interpretation (test Normal code = 76176-8) [facility] CenterBASIC METABOLIC [id number] 04:42:00 Test Item Value Reference Range Interpretation [...] S NOT APPLICABLE FOR DIALYSIS PATIEN TS. Botany Laboratory Assistant ID - DANA [id number] 04:42:00 Test Item Value Reference Range Interpretation Comments MAGNESIUM (BEAKER) (test code = 1.8 mg/dL 1.6-2.6 627) Botany Laboratory Assistant ID Ramsey CORTEZ WHEPATIC FUNCTION [id number] 04:42:00 Test Item Value Reference Range Interpretation [...] (test code = 38 U/L 6-55 347) Botany Laboratory Assistant ID Ramsey CORTEZ [id number] 04:42:00 Test Item Value Reference Range Interpretation Comments LIPASE (BEAKER) (test code = 749) 12 U/L 8-78 Botany Laboratory Assistant ID Ramsey CORTEZ WProthrombin time/[id number] 04:35:00 Test Item Value Reference Interpretation Comments [...] valves. Lab Interpretation Abnormal (test code = 58132-3) [facility] CenteraPTT2021-01-22 04:35:00 Test Item Value Reference Range Interpretation Comments PTT (test code = 35213-1) 28.4 See_Comment [ Automated message] The system [employer] generated this result transmitted ref erence range: 22.5 - 3 6.0 seconds. The re ference range was not u sed to interpret this result as normal/abnor mal. Lab Interpretation (test Normal code = 26377-8) [facility]/[id number] 04:35:00 Test Item Value Reference Range Interpretation [...] INR is2.5-3.5 for patients wiht mechanical heart valves.WEMJ1229-27-03 04:35:00 Test Item Value Reference Range Interpretation Comments PARTIAL THROMBOPLASTIN TIME 28.4 seconds 22.5-36.0 (BEAKER) (test code = 760) CBC W/PLT COUNT & AUTO [id number] 03:57:00 Test Item Value Reference Range Interpretation [...] PERCENT (BEAKER) (test code = 2801) [place], [id number] 16:06:13Reason for exam:->[facility] 1980 Sex: MFluoroscopic unit utilized for a procedure performed in the OR. No interpretation was requested. Refer to the operative report for findings. Refer to PACS for patient radiation dose information.FL Endoscopic Retrograde Itrmaugdykwygcdwjbzxaqdv9783-47-96 15:58:00Interface, External Ris In - 11/08/2020 9:42 AM CSTFluoroscopic unit utilized for a procedure performed in the OR. No interpretation was requested. Refer to the operative report for findings. [facility] PACS [facility] radiation [facility] information.[facility], [facility] 2020-07-08 19:26:00Unlisted Reason for Exam - Click Yes and Enter Reason Below- >YesUnlisted Reason for Exam->tingling/numbnessFINAL REPORT MR, BRAIN, WITHOUT CONTRAST, MR, MRA, BRAIN, WITHOUT CONTRAST, MR, MRA, NECK, WITHOUT IV CONTRAST INDICATION: Unlisted Reason for Examtingling/numbness TECHNIQUE: Multiplanar, multisequence MR imaging of the brain without intravenous contrast.MRA of the head utilizing 3-D ayha-ia-tmvaqe technique, with 3-D reconstructions.MRA of the neck utilizing 2-D and 3-D qlwv-ss-zlitfe technique, with 3-D reconstructions. COMPARISON: None FINDINGS: [...] Date/Time: 07/08/2020 19:26:58 MR, MRA, BRAIN, WITHOUT [id number] 19:26:00Unlisted Reason for Exam - Click Yes and Enter Reason Below->YesUnlisted Reason for Exam->tingling, numbnessFINAL REPORT MR, BRAIN, WITHOUT CONTRAST, MR, MRA, BRAIN, WITHOUT CONTRAST, MR, MRA, NECK, WITHOUT IV CONTRAST INDICATION: Unlisted Reason for Examtingling/numbness TECHNIQUE: Multiplanar, multisequence MR imaging of the brain without intravenous contrast.MRA of the head utilizing 3-D cvtm-es-vcsdlf technique, with 3-D reconstructions.MRA of the neck utilizing 2-D and 3-D xzhq-cc-vvytbw technique, with 3-D reconstructions. COMPARISON: None FINDINGS: [...] 07/08/2020 19:26:58 MR, MRA, NECK, WITHOUT IV [id number] 19:26:00Unlisted Reason for Exam - Click Yes and Enter Reason Below->YesUnlisted Reason for Exam->tingling, numbnessFINAL REPORT MR, BRAIN, WITHOUT CONTRAST, MR, MRA, BRAIN, WITHOUT CONTRAST, MR, MRA, NECK, WITHOUT IV CONTRAST INDICATION: Unlisted Reason for Examtingling/numbness TECHNIQUE: Mul tiplanar, multisequence MR imaging of the brain without intravenous contrast.MRA of the head utilizing 3-D erfd-xw-qhrwjg technique, with 3-D reconstructions.MRA of the neck utilizing 2-D and 3-D ikij-oc-vezdem technique, with 3-D reconstructions. COMPARISON: None FINDINGS: [...] the head and neck. Signed: Paloma Mcelroy MDRort Verified Date/Time: 07/08/2020 19:26:58 MRA head without IV [id number] 19:26:00Interface, External Ris In - 07/08/2020 7:29 PM CDTFINAL REPORT MR, BRAIN, WITHOUT CONTRAST, MR, MRA, BRAIN, WITHOUT CONTRAST, MR, MRA, NECK, WITHOUT IV CONTRAST INDICATION: Unlisted Reason for Examtingling/numbness TECHNIQUE: Multiplanar, multisequence MR imaging of the brain without intravenous contrast.MRA of the head utilizing 3-D xgpk-dh-ybaoub technique, with 3-D reconstructions.MRA of the neck utilizing 2-D and 3-D sqka-uu-aogpgs technique, with 3-D reconstructions. COMPARISON: None FINDINGS: [...] Paloma Mcelroy MDReport Verified Date/Time: 07/08/2020 19:26:58 [facility] 2020-07-08 19:26:00Interface, External Ris In - 07/08/2020 7:29 PM CDTFINAL REPORT MR, BRAIN, WITHOUT CONTRAST, MR, MRA, BRAIN, WITHOUT CONTRAST, MR, MRA, NECK, WITHOUT IV CONTRAST INDICATION: Unlisted Reason for Examtingling/numbness TECHNIQUE: Multiplanar, multisequence MR imaging of the brain without intravenous contrast.MRA of the head utilizing 3-D yqdy-xd-tqpete technique, with 3-D reconstructions.MRA of the neck utilizing 2-D and 3-D eyfv-ag-aisprw technique, with 3-D reconstructions. COMPARISON: None FINDINGS: [...] Signed: Paloma Mcelroy Verified Date/Time: 07/08/2020 19:26:58 [facility] [id number] 19:26:00 Interface, External Ris In - 07/08/2020 7:29 PM CDTFINAL REPORT MR, BRAIN, WITHOUT CONTRAST, MR, MRA, BRAIN, WITHOUT CONTRAST, MR, MRA, NECK, WITHOUT IV CONTRAST INDICATION: Unlisted Reason for Examtingling/numbness TECHNIQUE: Multiplanar, multisequence MR imaging of the brain without intravenous contrast.MRA of the head utilizing 3-D ojqm-yo-ggtmuf technique, with 3-D reconstructions.MRA of the neck utilizing 2-D and 3-D yipq-wg-auhrzn technique, with 3-D reconstructions. COMPARISON: None FINDINGS: [...]
[2021-03-14 14:44] LABS: Absolute Lymphocytes (CBC) 1.3 K/uL (0.7-4.9); Basophils % 0.6 % (0-1.3); Hematocrit 45.1 % (39.6-49.0); Lymphocytes % 11.6 % (15.3-44.8); MPV 9.2 fL (7.6-11.3); RBC Red Blood Cell Count 5.16 M/uL (4.33-5.43)
[2021-03-14] MEDS ORDERED: ONDANSETRON 4 MG/2 ML VIAL ONE (14:55)
[2021-03-14] MEDS ORDERED: FENTANYL CITR 100 MCG/2 ML ONE (14:55)
[2021-03-14 15:02] LABS: ALT/SGPT 29 U/L (12-78); AST/SGOT 20 U/L (15-37); Albumin 3.9 g/dL (3.4-5.0); Alkaline Phosphatase 113 U/L (45-117); BUN Blood Urea Nitrogen 19 mg/dL (7-18); Bicarbonate 33 mmol/L (21-32); Bilirubin Direct < 0.1 mg/dL (0-0.2); Bilirubin Total 0.5 mg/dL (0.2-1.0); Glucose Level 147 mg/dL (74-106); Lipase 84 U/L (73-393); Potassium 3.5 mmol/L (3.5-5.1); Protein, Total 7.9 g/dL (6.4-8.2); Sodium Level 144 mmol/L (136-145)
--- NOTE | 2021-03-14 15:55 | RAD REPORT ---
EXAM DESCRIPTION: CT - Abdomen Pelvis W Contrast - 03/14/2021 3:39 pm CLINICAL HISTORY: Abdominal pain COMPARISON: 2017 TECHNIQUE: Computed axial tomography of the abdomen pelvis was obtained. 100 cc Isovue-300 was admin istered intravenously. Oral contrast was not requested which limits evaluation of bowel. All CT scans are performed using dose optimization technique as appropriate and may include automated exposure control or mA/KV adjustment according to patient size. FINDINGS: The liver, spleen, and pancreas appear unremarkable. Small left renal cyst. Small right ad renal adenoma. Punctate nonobstructing right renal calculus Cholecystectomy A 23 millimeter left adrenal mass is slightly increased in size from a 2017 exam. There is no evidence of diverticulitis. Normal appendix. Prostatic calcifications. IMPRESSION: 23 millimeter left adrenal mass slightly increased in size from 2017 probably an adenoma . This should confirmed with a nonemergent MRI
--- NOTE | 2021-03-14 17:12 | ER ---
Nurse's Notes [facility] Name: Ta Quezada Age: 40 yrs Sex: Male : 1980 Arrival Date: 03/14/2021 Time: 14:15 Bed 2 Private MD: Diagnosis: Gastritis, unspecified;Epigastric pain Presentation: 03/14 14:16 Chief complaint: EMS states: BUQ PAIN. Coronavirus screen: At this time, the client bp does not indicate any symptoms associated with coronavirus-19. Ebola Screen: No symptoms or risks identified at this time. Initial Sepsis Screen: Does the patient meet any 2 criteria? No. Patient's initial sepsis screen is negative. Does the patient have a suspected source of infection? No. Patient's initial sepsis screen is negative. Risk Assessment: Do you want to hurt yourself or someone else? Patient reports no desire to harm self or others. Onset of symptoms is unknown. Care prior to arrival: Medication(s) given: zofran 4 mg, IV initiated. 22 GA, in the left hand. 14:16 Method Of Arrival: EMS: [facility] bp 14:16 Acuity: RENE 3 bp Triage Assessment: 14:20 General: Appears distressed, uncomfortable, Behavior is cooperative, agitated, anxious. bp Pain: Complains of pain in abdomen. EENT: No deficits noted. Neuro: No deficits noted. Cardiovascular: No deficits noted. Respiratory: No deficits noted. GI: Abdomen is non-distended, Reports upper abdominal pain. : No signs and/or symptoms were reported regarding the genitourinary system. Derm: No deficits noted. Musculoskeletal: No deficits noted. Historical: - Allergies: 14:20 No Known Allergies; bp - Home Meds: 14:20 fluoxetine 10 mg Oral cap once daily [Active]; bp - PMHx: 14:20 Depression; GERD; Hypertension; Kidney stones; TIA; bp - Immunization history:: Adult Immunizations unknown. - Social history:: Smoking status: unknown. Screenin:45 Abuse screen: Denies threats or abuse. Denies injuries from another. Nutritional bp screening: No deficits noted. Tuberculosis screening: No symptoms or risk factors identified. Fall Risk None identified. Assessment: 14:20 General: SEE TRIAGE NOTE. bp 15:00 Reassessment: Patient and/or family updated on plan of care and expected duration. Pain bp level reassessed. Patient states feeling better. 16:29 Reassessment: Patient and/or family updated on plan of care and expected duration. Pain bp level reassessed. Patient states symptoms have improved. 17:49 Reassessment: PT D/C HOME VIA W/C WITH FAMILY, DX WITH GASTRITIS. bp Vital Signs: 14:16 BP 166 / 93; Pulse 65; Resp 19; Temp 98; Pulse Ox 94% ; bp 15:06 BP 150 / 88; Pulse 65; Resp 15 S; Pulse Ox 95% on R/A; ca1 16:31 BP 163 / 83; Pulse 62; Resp 15; Pulse Ox 96% ; bp 17:30 BP 157 / 90; Pulse 63; Resp 17; Temp 98; Pulse Ox 98% ; bp ED Course: 14:15 Patient arrived in ED. bp 14:16 Nolberto Trujillo PA is PHCP. bp 14:16 Clint Whitehead MD is Attending Physician. bp 14:19 Triage completed. bp 14:23 Yodit Lindsey, RN is Primary Nurse. ca1 14:25 Patient has correct armband on for positive identification. Placed in gown. Bed in low mh5 position. Call light in reach. Side rails up X 1. Warm blanket given. Pulse ox on. NIBP on. 14:35 Basic Metabolic Panel Sent. mh5 14:35 CBC with Diff Sent. mh5 14:35 Hepatic Function Sent. mh5 14:35 Lipase Sent. mh5 14:35 Basic Metabolic Panel Sent. mh5 14:35 Initial lab(s) drawn, by me, sent to lab. Maintain EMS IV. Dressing intact. Good blood mh5 return noted. Site clean \T\ dry. 14:52 Arm band placed on. ca1 15:35 Donte Montenegro, RN is Primary Nurse. bp 15:39 CT Abd/Pelvis - IV Contrast Only In Process Unspecified. EDMS 17:11 Thang Mcduffie MD is Referral Physician. jr8 17:50 No provider procedures requiring assistance completed. IV discontinued, intact, bp bleeding controlled, No redness/swelling at site. Pressure dressing applied. Administered Medications: 14:35 Drug: Zofran (Ondansetron) 4 mg Route: IVP; Site: left hand; ca1 17:28 Follow up: Response: No adverse reaction; Nausea is decreased bp 14:37 Drug: fentaNYL (PF) 50 mcg {Note: rass 0.} Route: IVP; Site: left hand; ca1 17:28 Follow up: Response: No adverse reaction; Pain is decreased bp 17:25 Drug: ProTONIX (pantoprazole) 40 mg Route: IVP; Site: left hand; bp 17:29 Follow up: Response: Nausea is decreased bp 17:25 Drug: GI Cocktail without - (Maalox Suspension 30 ml, Lidocaine Liquid 2 % 15 bp ml) Route: PO; 17:29 Follow up: Response: Nausea is decreased bp Outcome: 17:12 Discharge ordered by . candy 17:50 Discharged to home via wheelchair, with family. bp 17:50 Condition: stable 17:50 Discharge instructions given to patient, Instructed on discharge instructions, follow up and referral plans. medication usage, Demonstrated understanding of instructions, follow-up care, medications, Prescriptions given X 1. 18:03 Patient left the ED. ll1 Signatures: Dispatcher [employer] EDMS Nolberto Trujillo PA PA jr8 Martinez, Maria [facility] Donte Mnotenegro, ANGELICA RN Yodit Barker RN RN ca1 Lui Hdez RN RN ll1
--- NOTE | 2021-03-14 17:12 | EDPHYS ---
Physician Documentation [facility] Name: Ta Quezada Age: 40 yrs Sex: Male : 1980 Arrival Date: 03/14/2021 Time: 14:15 Bed 2 Private MD: ED Physician Clint Whitehead HPI: 03/14 16:53 This 40 yrs old Male presents to ER via EMS with complaints of Abdominal Pain.jr8 16:53 The patient presents with abdominal pain in the epigastric area. Onset: The jr8 symptoms/episode began/occurred acutely, today. The symptoms do not radiate. Associated signs and symptoms: Pertinent positives: nausea and vomiting. The symptoms are described as stabbing. Modifying factors: The symptoms are alleviated by nothing, the symptoms are aggravated by nothing. Severity of pain: At its worst the pain was moderate in the emergency department the pain is unchanged. The patient has experienced a previous episode. The patient has not recently seen a physician. Historical: - Allergies: 14:20 No Known Allergies; bp - Home Meds: 14:20 fluoxetine 10 mg Oral cap once daily [Active]; bp - PMHx: 14:20 Depression; GERD; Hypertension; Kidney stones; TIA; bp - Immunization history:: Adult Immunizations unknown. - Social history:: Smoking status: unknown. ROS: 16:53 Eyes: Negative for injury, pain, redness, and discharge, ENT: Negative for injury, jr8 pain, and discharge, Neck: Negative for injury, pain, and swelling, Cardiovascular: Negative for chest pain, palpitations, and edema, Respiratory: Negative for shortness of breath, cough, wheezing, and pleuritic chest pain, Back: Negative for injury and pain, MS/Extremity: Negative for injury and deformity, Skin: Negative for injury, rash, and discoloration, Neuro: Negative for headache, weakness, numbness, tingling, and seizure. 16:53 Abdomen/GI: Positive for abdominal pain, nausea and vomiting, Negative for diarrhea, constipation, abdominal cramps, abdominal distension. Exam: 16:53 ENT: Nares patent. No nasal discharge, no septal abnormalities noted. Oropharynx with jr8 no redness, swelling, or masses, exudates, or evidence of obstruction, uvula midline. Mucous membranes moist. Cardiovascular: Regular rate and rhythm with a normal S1 and S2. No gallops, murmurs, or rubs. Normal PMI, no JVD. No pulse deficits. Respiratory: Lungs have equal breath sounds bilaterally, clear to auscultation and percussion. No rales, rhonchi or wheezes noted. No increased work of breathing, no retractions or nasal flaring. Skin: Warm, dry with normal turgor. Normal color with no rashes, no lesions, and no evidence of cellulitis. MS/ Extremity: Pulses equal, no cyanosis. Neurovascular intact. Full, normal range of motion. Neuro: Awake and alert, GCS 15, oriented to person, place, time, and situation. Cranial nerves II-XII grossly intact. Motor strength 5/5 in all extremities. Sensory grossly intact. 16:53 Constitutional: The patient appears alert, awake, uncomfortable. 16:53 Abdomen/GI: Inspection: abdomen appears normal, Bowel sounds: active, all quadrants, Palpation: soft, in all quadrants, mild abdominal tenderness, in the abdomen diffusely, mass, is not appreciated, rebound tenderness, is elicited in all quadrants, voluntary guarding, is not appreciated, involuntary guarding, is not appreciated, no appreciated organomegaly, Indicators: McBurney's point is not tender, Faith's sign is negative, Rovsing's sign is negative, Liver: tenderness, is not appreciated. Vital Signs: 14:16 BP 166 / 93; Pulse 65; Resp 19; Temp 98; Pulse Ox 94% ; bp 15:06 BP 150 / 88; Pulse 65; Resp 15 S; Pulse Ox 95% on R/A; ca1 16:31 BP 163 / 83; Pulse 62; Resp 15; Pulse Ox 96% ; bp 17:30 BP 157 / 90; Pulse 63; Resp 17; Temp 98; Pulse Ox 98% ; bp MDM: 14:23 Patient medically screened. jr8 17:04 Data reviewed: vital signs, nurses notes, lab test result(s), radiologic studies, CT jr8 scan. Data interpreted: Pulse oximetry: on room air is 96 %. Interpretation: normal. Counseling: I had a detailed discussion with the patient and/or guardian regarding: the historical points, exam findings, and any diagnostic results supporting the discharge/admit diagnosis, lab results, radiology results, the need for outpatient follow up, a sleeve separator, to return to the emergency department if symptoms worsen or persist or if there are any questions or concerns that arise at home. ED course: No acute findings on CT. Lab work stable. Feeling better after treatment. Discussed enlarged adrenal mass that needs nonemergent MRI. Patient good with this and will f/u with Dr. Mcduffie. Also discussed with him that he needs to go back to taking his omeprazole 40 mg once daily . 03/14 14:23 Order name: Basic Metabolic Panel [facility] 03/14 14:23 Order name: CBC with Diff; Complete Time: 14:46 [facility] 03/14 14:23 Order name: Hepatic Function; Complete Time: 15:21 [facility] 03/14 14:23 Order name: Lipase; Complete Time: 15:21 [facility] 03/14 14:23 Order name: Basic Metabolic Panel; Complete Time: 15:21 [facility] 03/14 14:46 Order name: CT Abd/Pelvis - IV Contrast Only; Complete Time: 15:57 [facility] 03/14 14:23 Order name: IV Saline Lock; Complete Time: 14:35 [facility] 03/14 14:23 Order name: Labs collected and sent; Complete Time: 14:35 [facility] Administered Medications: 14:35 Drug: Zofran (Ondansetron) 4 mg Route: IVP; Site: left hand; ca1 17:28 Follow up: Response: No adverse reaction; Nausea is decreased bp 14:37 Drug: fentaNYL (PF) 50 mcg {Note: rass 0.} Route: IVP; Site: left hand; ca1 17:28 Follow up: Response: No adverse reaction; Pain is decreased bp 17:25 Drug: ProTONIX (pantoprazole) 40 mg Route: IVP; Site: left hand; bp 17:29 Follow up: Response: Nausea is decreased bp 17:25 Drug: GI Cocktail without - (Maalox Suspension 30 ml, Lidocaine Liquid 2 % 15 bp ml) Route: PO; 17:29 Follow up: Response: Nausea is decreased bp Disposition: 03/15 09:46 Co-signature as Attending Physician, Clint Whitehead MD I agree with the assessment and kdr plan of care. Disposition: 03/14/21 17:12 Discharged to Home. Impression: Gastritis, unspecified, Epigastric pain. - Condition is Stable. - Discharge Instructions: Abdominal Pain, Adult, Gastritis, Adult. - Prescriptions for Zofran 4 mg Oral Tablet - take 1 tablet by ORAL route every 12 hours As needed; 20 tablet. - Medication Reconciliation Form, Thank You Letter, Antibiotic Education, Prescription Opioid Use form. - Follow up: Thang Mcduffie MD; When: 2 - 3 days; Reason: Recheck today's complaints, Continuance of care, Re-evaluation by your physician. - Problem is new. - Symptoms have improved. Signatures: Dispatcher [employer] EDMS Clint Whitehead MD MD kdr Roszak, Josh, PA PA jr8 Donte Montenegro RN RN bp Yodit Lindsey RN RN ca1 Lui Hdez RN RN ll1 Corrections: (The following items were deleted from the chart) 03/14 18:03 17:12 03/14/2021 17:12 Discharged to Home. Impression: Gastritis, unspecified; ll1 Epigastric pain. Condition is Stable. Forms are Medication Reconciliation Form, Thank You Letter, Antibiotic Education, Prescription Opioid Use. Follow up: Thang Mcduffie; When: 2 - 3 days; Reason: Recheck today's complaints, Continuance of care, Re-evaluation by your physician. Problem is new. Symptoms have improved. jr8
[2021-03-14] MEDS ORDERED: MAGNES/ALUMIN/SIMET 30ML UCUP ONE (17:43)
[2021-03-14] MEDS ORDERED: PANTOPRAZOLE 40 MG INJ ONE (17:44)
[2021-03-14] MEDS ORDERED: LIDOCAINE VISCOUS 2% SOLN 15 ML UDC ONE (17:44)
[2021-03-14 18:27] VITALS: TEMP 98
[2021-03-14 18:31] VITALS: BP 157/90; O2SAT 98
== END 2021-03-14 18:03 | disposition home or self-care (01) ==
LOC: ER 14:11
DX: K29.70 Gastritis, unspecified, without bleeding (principal); I10 Essential (primary) hypertension; F32.9 Major depressive disorder, single episode, unspecified
CPT/HCPCS: 36415; 74177; 80048; 80076; 83690; 85025; 96374; 96375; 99284; C9113; J2405; J3010; Q9967

== ENCOUNTER 2021-03-31 11:14 | Inpatient (IN) | payer SELFPAY ==
[2021-03-31 11:45] LABS: Absolute Lymphocytes (CBC) 2.3 K/uL (0.7-4.9); Basophils % 0.6 % (0-1.3); Hematocrit 51.3 % (39.6-49.0); Lymphocytes % 15.9 % (15.3-44.8)
[2021-03-31] MEDS ORDERED: NA CHLORIDE 0.9% 1,000 ML ONE ×2 (11:50→13:46)
[2021-03-31] MEDS ORDERED: MORPHINE 4 MG/ML SYR ONE (11:50)
[2021-03-31] MEDS ORDERED: ONDANSETRON 4 MG/2 ML VIAL ONE (11:50)
[2021-03-31 12:08] LABS: Albumin 4.3 g/dL (3.4-5.0); Bilirubin Direct 0.1 mg/dL (0-0.2); Bilirubin Total 0.6 mg/dL (0.2-1.0); Potassium 3.1 mmol/L (3.5-5.1); Protein, Total 8.2 g/dL (6.4-8.2)
[2021-03-31] MEDS ORDERED: MAGNES/ALUMIN/SIMET 30ML UCUP ONE (12:13)
[2021-03-31] MEDS ORDERED: FAMOTIDINE 20 MG/2 ML VIAL IV ONE (12:13)
[2021-03-31] MEDS ORDERED: LIDOCAINE VISCOUS 2% SOLN 15 ML UDC ONE (12:13)
[2021-03-31] MEDS ORDERED: PROMETHAZINE INJ 25 MG/ML AMP ONE ×2 (12:51→13:48)
--- NOTE | 2021-03-31 13:05 | RAD REPORT ---
EXAM DESCRIPTION: CT - Abdomen Pelvis W Contrast - 03/31/2021 12:51 pm CLINICAL HISTORY: ABD PAIN COMPARISON: Abdomen Pelvis W Contrast dated 03/14/2021; Abdomen Pelvis W Contrast dated 11/04/2020 ; Abdomen Pelvis W Contrast dated 12/27/2016 TECHNIQUE: Biphasic, helical CT imaging of the abdomen and pelvis was performed following 100 ml non -ionic IV contrast. No oral contrast administered. All CT scans are performed using dose optimization technique as appropriate and may include automated exposure control or mA/KV adjustment according to patient size. FINDINGS: No suspicious findings in the lung bases. Liver shows fatty infiltration attenuation pattern with no focal liver lesion. This matches compariso n. No portal vein abnormality. Spleen and pancreas show no suspicious findings. Cholecystectomy clips are present with no abnormal biliary tree dilatation. Symmetric renal function is seen with no hydronephrosis or suspicious renal mass. No pyelonephritis o r acute parenchymal process. Small lower pole left renal cyst has not changed. Patient has a small 10 -12 mm right adrenal mass not clearly different from comparison. The approximately 24 millimeter left adrenal mass also without clear change. This is probably 2 abutting small adrenal masses. Adrenal ad enomas would be the favored diagnosis. These do not meet strict criteria based on attenuation. No fat or calcification component. Size increase was noted between 2017 and 2020 studies. In the absence of any malignant history, metastatic disease is unlikely. Primary adrenal malignancy also unlikely. The se can be monitored on subsequent imaging. MRI adrenal protocol could be performed as an alternative to rule in or rule out adrenal adenoma. Dense calcifications are seen in a normal size prostate gland . No dilated bowel loops or bowel wall thickening. No appendicitis findings. A few small nondilated sma ll bowel loops are present. A minimal nonspecific enteritis would be possible. No acute colon finding . No free air, free fluid or inflammatory stranding. No hernia, mass or bulky lymphadenopathy. No suspicious bony findings. IMPRESSION: Contrast enhanced CT abdomen and pelvis showing no emergent finding. A few small bowel loops are fluid-filled but nondilated. This is a very minimal finding but could ind icate a nonspecific enteritis. Stable bilateral adrenal masses. Adenoma etiology remains strongly favored. Since the adrenal masses show no growth between 2016 and 2020, masses can be monitored with serial CT imaging in 6-12 months. Alternatively, contrast-enhanced MRI adrenal protocol study could be performed as an outpatient proce
[2021-03-31] MEDS ORDERED: DICYCLOMINE HCL 20 MG/2 ML AMP IM ONE (13:48)
--- NOTE | 2021-03-31 14:24 | EDPHYS ---
Physician Documentation [facility] Name: Ta Quezada Age: 40 yrs Sex: Male : 1980 Arrival Date: 03/31/2021 Time: 11:15 Bed 25 Private MD: ED Physician Bruno Rivera HPI: 03/31 20:07 This 40 yrs old Male presents to ER via EMS with complaints of Nausea, kb Abdominal Pain. 20:07 The patient presents to the emergency department with nausea, vomiting, abdominal pain. kb Onset: The symptoms/episode began/occurred 3 day(s) ago. Possible causes: unknown. The symptoms are aggravated by nothing. The symptoms are alleviated by nothing. Associated signs and symptoms: Pertinent positives: abdominal pain, nausea, vomiting. Severity of symptoms: At their worst the symptoms were severe in the emergency department the symptoms are unchanged. The patient has not experienced similar symptoms in the past. The patient has not recently seen a physician. Historical: - Allergies: 11:19 No Known Allergies; vg1 - Home Meds: 11:19 fluoxetine 10 mg Oral cap once daily [Active]; Prilosec 40 mg Oral cpDR 1 cap once vg1 daily [Active]; - PMHx: 11:19 Depression; GERD; Hypertension; Kidney stones; TIA; vg1 - PSHx: 11:19 Cholecystectomy; vg1 - Immunization history:: Adult Immunizations up to date. - Social history:: Smoking status: Patient reports the use of cigarette tobacco products, denies chronic smoking, but will smoke occasionally. ROS: 20:06 Constitutional: Negative for fever, chills, and weight loss. kb 20:06 Abdomen/GI: Positive for abdominal pain, nausea and vomiting, Negative for diarrhea. 20:06 All other systems are negative. Exam: 20:06 Constitutional: This is a well developed, well nourished patient who is awake, alert, kb and in no acute distress. Head/Face: Normocephalic, atraumatic. ENT: Moist Mucous membranes Cardiovascular: Regular rate and rhythm with a normal S1 and S2. No gallops, murmurs, or rubs. No pulse deficits. Respiratory: Respirations even and unlabored. No increased work of breathing, no retractions or nasal flaring. Skin: Warm, dry with normal turgor. Normal color. MS/ Extremity: Pulses equal, no cyanosis. Neurovascular intact. Full, normal range of motion. Neuro: Awake and alert, GCS 15, oriented to person, place, time, and situation. Moves all extremities. Normal gait. Psych: Awake, alert, with orientation to person, place and time. Behavior, mood, and affect are within normal limits. 20:06 Abdomen/GI: Inspection: abdomen appears normal, Bowel sounds: normal, in all quadrants, Palpation: soft, in all quadrants, moderate abdominal tenderness, in the epigastric area, right upper quadrant and left upper quadrant. Vital Signs: 11:16 BP 153 / 69; Pulse 80; Resp 18; Temp 98.0; Pulse Ox 96% ; Weight 99.79 kg; Height 5 ft. vg1 11 in. (180.34 cm); Pain 10/10; 12:00 BP 161 / 78; Pulse 61; Resp 18; Pulse Ox 98% on R/A; vg1 13:00 BP 142 / 75; Pulse 67; Resp 16; Pulse Ox 96% on R/A; vg1 14:07 BP 156 / 75; Pulse 96; Resp 18; Pulse Ox 99% on R/A; vg1 15:00 BP 133 / 57; Pulse 63; Resp 14; Pulse Ox 96% on R/A; vg1 11:16 Body Mass Index 30.68 (99.79 kg, 180.34 cm) vg1 MDM: 11:18 Patient medically screened. kb 20:05 Data reviewed: vital signs, nurses notes. Data interpreted: Pulse oximetry: on room air kb is 96 %. Interpretation: normal. Counseling: I had a detailed discussion with the patient and/or guardian regarding: the historical points, exam findings, and any diagnostic results supporting the discharge/admit diagnosis, lab results, radiology results, the need for further work-up and treatment in the hospital. Physician consultation: Fausto Wasserman MD was contacted at 14:17, regarding admission, to the medical/surgical unit. patient's condition, and will see patient in ED. 03/31 11:18 Order name: Basic Metabolic Panel; Complete Time: 12:11 kb 03/31 11:18 Order name: CBC with Diff; Complete Time: 11:47 kb 03/31 11:18 Order name: Hepatic Function; Complete Time: 12:11 kb 03/31 11:18 Order name: Lipase; Complete Time: 12:11 kb 03/31 15:45 Order name: SARS-COV-2 RT PCR; Complete Time: 15:55 EDMS 03/31 12:14 Order name: CT Abd/Pelvis - IV Contrast Only; Complete Time: 13:07 kb 03/31 16:08 Order name: CBC with Automated Diff EDMS 03/31 16:08 Order name: CBC with Automated Diff EDMS 03/31 16:08 Order name: Comprehensive Metabolic Panel EDMS 03/31 16:08 Order name: Comprehensive Metabolic Panel EDMS 03/31 11:18 Order name: IV Saline Lock; Complete Time: 11:41 kb 03/31 11:18 Order name: Labs collected and sent; Complete Time: 11:41 kb 03/31 16:08 Order name: Clear Liquid EDMS Administered Medications: 11:37 Drug: NS 0.9% 1000 ml Route: IV; Rate: 1000 ml; Site: left antecubital; vg1 12:45 Follow up: IV Status: Completed infusion; IV Intake: 1000ml vg1 11:37 Drug: Zofran (Ondansetron) 4 mg Route: IVP; Site: left antecubital; vg1 12:36 Follow up: Response: Nausea unchanged vg1 11:39 Drug: morphine 4 mg Route: IVP; Site: left antecubital; vg1 12:36 Follow up: Response: No adverse reaction; Pain is unchanged, physician notified vg1 11:55 Drug: Pepcid (famotidine) 20 mg Route: IVP; Site: left antecubital; vg1 12:36 Follow up: Response: No adverse reaction vg1 11:59 Drug: GI Cocktail without - (Maalox Suspension 30 ml, Lidocaine Liquid 2 % 15 vg1 ml) Route: PO; 12:36 Follow up: Response: No adverse reaction vg1 12:34 Drug: Phenergan (promethazine) 12.5 mg Route: IVP; Site: left antecubital; vg1 13:29 Follow up: Response: No adverse reaction vg1 13:29 Drug: NS 0.9% 1000 ml Route: IV; Rate: 1000 ml; Site: left antecubital; vg1 15:52 Follow up: IV Status: Completed infusion; IV Intake: 1000ml vg1 13:34 Drug: Phenergan (promethazine) 12.5 mg Route: IVP; Site: left antecubital; kg 14:27 Follow up: Response: No adverse reaction; Nausea unchanged vg1 13:34 Drug: Bentyl (dicyclomine) 20 mg Route: IM; Site: right gluteus; kg 14:27 Follow up: Response: No adverse reaction; Pain is decreased vg1 Disposition: 04/01 07:12 Co-signature as Attending Physician, Bruno Rivera MD I agree with the assessment and [facility] plan of care. Disposition: 03/31/21 14:23 Hospitalization ordered by Fausto Wasserman for Observation. Preliminary diagnosis are Nausea and vomiting - intractable, Upper abdominal pain, unspecified. - Bed requested for Telemetry/MedSurg (observation). - Status is Observation. vg1 - Condition is Stable. - Problem is an acute exacerbation. - Symptoms are unchanged. Signatures: Dispatcher [employer] EDIN Aubrie Flores, CUSTOM GARMENT DESIGNER-C CUSTOM GARMENT DESIGNER-CkKim Morejon RN ANGELICA dw Bruno Rivera MD MD cha Garcia, Victoria RN ANGELICA vg1 Malorie Bettencourt RN RN kg Corrections: (The following items were deleted from the chart) 03/31 14:41 14:27 CORONAVIRUS+MR.LAB.BRZ ordered. EDIN EDIN 16:18 14:23 Hospitalization Ordered by Fausto Wasserman MD for Observation. Preliminary dw diagnosis is Nausea and vomiting - intractable; Upper abdominal pain, unspecified. Bed requested for Telemetry/MedSurg (observation). Status is Observation. Condition is Stable. Problem is an acute exacerbation. Symptoms are unchanged. kb 17:03 16:18 03/31/2021 14:23 Hospitalization Ordered by Fausto Wasserman MD for Observation. vg1 Preliminary diagnosis is Nausea and vomiting - intractable; Upper abdominal pain, unspecified. Bed requested for Telemetry/MedSurg (observation). Status is Observation. Condition is Stable. Problem is an acute exacerbation. Symptoms are unchanged. dw 20:07 20:06 Abdomen/GI: Inspection: abdomen appears normal, Bowel sounds: normal, in all kb quadrants, Palpation: soft, in all quadrants, moderate abdominal tenderness, in the right upper quadrant, kb
--- NOTE | 2021-03-31 14:24 | ER ---
Nurse's Notes [facility] Name: Ta Quezada Age: 40 yrs Sex: Male : 1980 Arrival Date: 03/31/2021 Time: 11:15 Bed 25 Private MD: Diagnosis: Nausea and vomiting-intractable;Upper abdominal pain, unspecified Presentation: 03/31 11:16 Chief complaint: EMS states: Pt c/o generalized ABD pain that started on Wednesday vg1 03/29. 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 Coronavirus screen: Client denies travel out of the [place] in the last 14 days. Ebola Screen: Patient negative for fever greater than or equal to 101.5 degrees Fahrenheit, and additional compatible Ebola Virus Disease symptoms. Initial Sepsis Screen: Does the patient meet any 2 criteria? No. Patient's initial sepsis screen is negative. Does the patient have a suspected source of infection? No. Patient's initial sepsis screen is negative. Risk Assessment: Do you want to hurt yourself or someone else? Patient reports no desire to harm self or others. Onset of symptoms was March 29, 2020. 11:16 Method Of Arrival: EMS: [facility] vg1 11:16 Acuity: RENE 3 vg1 Triage Assessment: 11:19 General: Appears in no apparent distress. uncomfortable, Behavior is calm, cooperative. vg1 Pain: Complains of pain in abdomen Pain currently is 10 out of 10 on a pain scale. Pain began 2-3 days ago. Noted to be grimacing, guarding, moaning. EENT: No signs and/or symptoms were reported regarding the EENT system. Neuro: Level of Consciousness is awake, alert, obeys commands, Oriented to person, place, time, situation. Cardiovascular: Patient's skin is warm and dry. Respiratory: Airway is patent Respiratory effort is even, unlabored. GI: Abdomen is flat, non-distended, Reports nausea, vomiting. : No signs and/or symptoms were reported regarding the genitourinary system. Derm: Skin is intact, is healthy with good turgor. Musculoskeletal: Circulation, motion, and sensation intact. Historical: - Allergies: 11:19 No Known Allergies; vg1 - Home Meds: 11:19 fluoxetine 10 mg Oral cap once daily [Active]; Prilosec 40 mg Oral cpDR 1 cap once vg1 daily [Active]; - PMHx: 11:19 Depression; GERD; Hypertension; Kidney stones; TIA; vg1 - PSHx: 11:19 Cholecystectomy; vg1 - Immunization history:: Adult Immunizations up to date. - Social history:: Smoking status: Patient reports the use of cigarette tobacco products, denies chronic smoking, but will smoke occasionally. Screenin:20 Abuse screen: Denies threats or abuse. Nutritional screening: No deficits noted. vg1 Tuberculosis screening: No symptoms or risk factors identified. Fall Risk No fall in past 12 months (0 pts). No secondary diagnosis (0 pts). IV access (20 points). Ambulatory Aid- None/Bed Rest/Nurse Assist (0 pts). Gait- Normal/Bed Rest/Wheelchair (0 pts) Mental Status- Oriented to own ability (0 pts). Total Umana Fall Scale indicates No Risk (0-24 pts). Assessment: 11:20 Reassessment: see triage. vg1 11:53 Reassessment: Received VO from Mark PROFESSOR OF LAW to administer GI cocktail x1 and Pepcid 20 mg vg1 IVP x1. 12:28 Reassessment: Patient appears in no apparent distress at this time. Patient and/or vg1 family updated on plan of care and expected duration. Pain level reassessed. Patient is alert, oriented x 3, equal unlabored respirations, skin warm/dry/pink. Pt stated stated is still vomiting; vomit in emesis bag, about 100 mL of fluid, red tinge to fluids. 12:30 Reassessment: Received VO from Mark PROFESSOR OF LAW to administer Phenergan 12.5 mg IVP x1. vg1 13:00 Reassessment: Patient appears in no apparent distress at this time. Pt resting with vg1 eyes closed. 14:05 Reassessment: Patient appears in no apparent distress at this time. Patient and/or vg1 family updated on plan of care and expected duration. Pain level reassessed. Patient is alert, oriented x 3, equal unlabored respirations, skin warm/dry/pink. Pt states pain 'tolerable' but is 'dull pain', rates pain 2/10. Patient states feeling better. 15:51 Reassessment: Patient appears in no apparent distress at this time. Patient and/or vg1 family updated on plan of care and expected duration. Pain level reassessed. Patient is alert, oriented x 3, equal unlabored respirations, skin warm/dry/pink. 16:25 Reassessment: attempted to call report. vg1 16:41 Reassessment: attempted to call report. vg1 Vital Signs: 11:16 BP 153 / 69; Pulse 80; Resp 18; Temp 98.0; Pulse Ox 96% ; Weight 99.79 kg; Height 5 ft. vg1 11 in. (180.34 cm); Pain 10/10; 12:00 BP 161 / 78; Pulse 61; Resp 18; Pulse Ox 98% on R/A; vg1 13:00 BP 142 / 75; Pulse 67; Resp 16; Pulse Ox 96% on R/A; vg1 14:07 BP 156 / 75; Pulse 96; Resp 18; Pulse Ox 99% on R/A; vg1 15:00 BP 133 / 57; Pulse 63; Resp 14; Pulse Ox 96% on R/A; vg1 11:16 Body Mass Index 30.68 (99.79 kg, 180.34 cm) vg1 ED Course: 11:15 Patient arrived in ED. ds1 11:16 Tiffany Fowler, RN is Primary Nurse. vg1 11:18 Aubrie Flores FNP-C is PHCP. kb 11:18 Bruno Rivera MD is Attending Physician. kb 11:18 Triage completed. vg1 11:20 Patient has correct armband on for positive identification. Bed in low position. Call vg1 light in reach. Side rails up X 1. 11:20 Arm band placed on. vg1 11:35 Initial lab(s) drawn, by me, sent to lab. Inserted saline lock: 20 gauge in left vg1 antecubital area, using aseptic technique. Blood collected. 12:51 CT Abd/Pelvis - IV Contrast Only In Process Unspecified. EDMS 14:22 Fausto Wasserman MD is Hospitalizing Provider. kb 14:34 COVID swab sent to lab. vg1 16:54 No provider procedures requiring assistance completed. Patient admitted, IV remains in vg1 place. Administered Medications: 11:37 Drug: NS 0.9% 1000 ml Route: IV; Rate: 1000 ml; Site: left antecubital; vg1 12:45 Follow up: IV Status: Completed infusion; IV Intake: 1000ml vg1 11:37 Drug: Zofran (Ondansetron) 4 mg Route: IVP; Site: left antecubital; vg1 12:36 Follow up: Response: Nausea unchanged vg1 11:39 Drug: morphine 4 mg Route: IVP; Site: left antecubital; vg1 12:36 Follow up: Response: No adverse reaction; Pain is unchanged, physician notified vg1 11:55 Drug: Pepcid (famotidine) 20 mg Route: IVP; Site: left antecubital; vg1 12:36 Follow up: Response: No adverse reaction vg1 11:59 Drug: GI Cocktail without - (Maalox Suspension 30 ml, Lidocaine Liquid 2 % 15 vg1 ml) Route: PO; 12:36 Follow up: Response: No adverse reaction vg1 12:34 Drug: Phenergan (promethazine) 12.5 mg Route: IVP; Site: left antecubital; vg1 13:29 Follow up: Response: No adverse reaction vg1 13:29 Drug: NS 0.9% 1000 ml Route: IV; Rate: 1000 ml; Site: left antecubital; vg1 15:52 Follow up: IV Status: Completed infusion; IV Intake: 1000ml vg1 13:34 Drug: Phenergan (promethazine) 12.5 mg Route: IVP; Site: left antecubital; kg 14:27 Follow up: Response: No adverse reaction; Nausea unchanged vg1 13:34 Drug: Bentyl (dicyclomine) 20 mg Route: IM; Site: right gluteus; kg 14:27 Follow up: Response: No adverse reaction; Pain is decreased vg1 Intake: 12:45 IV: 1000ml; Total: 1000ml. vg1 15:52 IV: 1000ml; Total: 2000ml. vg1 Outcome: 14:23 Decision to Hospitalize by Provider. kb 16:54 Admitted to Tele accompanied by tech, via wheelchair, room 212, with chart, Report vg1 called to TJ 16:54 Condition: stable 16:54 Instructed on the need for admit. 17:03 Patient left the ED. vg1 Signatures: Dispatcher [employer] EDMS Aubrie Flores FNP-C FNP-Ilda Mccullough ds1 Tiffany Fowler, RN RN vg1 Sg, Malorie, RN RN kg
[2021-03-31] MEDS ORDERED: ACETAMINOPHEN 500 MG TAB PO PRN (16:06)
[2021-03-31] MEDS ORDERED: MORPHINE 2 MG/ML SYR IV PRN (16:06)
[2021-03-31] MEDS ORDERED: SODIUM CHLORIDE 0.9% 10ML INJ IV PRN (16:08)
[2021-03-31 17:32] VITALS: BMI 30.7
[2021-03-31] MEDS: NA CHLORIDE 0.9% 1,000 ML IV SCH (17:33)
[2021-03-31] MEDS: PANTOPRAZOLE 40 MG INJ IVP SCH (20:35)
[2021-03-31 20:47] VITALS: O2SAT 95
[2021-04-01] MEDS: NA CHLORIDE 0.9% 1,000 ML IV SCH ×2 (03:05→17:25)
[2021-04-01] MEDS: ONDANSETRON 4 MG/2 ML VIAL IV PRN ×2 (03:47→08:54)
[2021-04-01] MEDS ORDERED: LIDOCAINE VISCOUS 2% SOLN 15 ML UDC PO ONE (04:27)
[2021-04-01] MEDS ORDERED: MAGNES/ALUMIN/SIMET 30ML UCUP PO ONE (04:27)
[2021-04-01 04:49] LABS: Absolute Lymphocytes (CBC) 3.4 K/uL (0.7-4.9); Basophils % 0.7 % (0-1.3); Hematocrit 40.5 % (39.6-49.0); Lymphocytes % 38.9 % (15.3-44.8); RBC Red Blood Cell Count 4.69 M/uL (4.33-5.43)
[2021-04-01] MEDS ORDERED: MAGNES/ALUMIN/SIMET 30ML UCUP ONE (04:51)
[2021-04-01] MEDS ORDERED: LIDOCAINE VISCOUS 2% SOLN 15 ML UDC ONE (04:52)
[2021-04-01 05:04] LABS: BUN Blood Urea Nitrogen 14 mg/dL (7-18); Bicarbonate 33 mmol/L (21-32); Glucose Level 85 mg/dL (74-106); Potassium 3.5 mmol/L (3.5-5.1); Sodium Level 142 mmol/L (136-145)
[2021-04-01 05:05] LABS: ALT/SGPT 67 U/L (12-78); AST/SGOT 87 U/L (15-37); Albumin 3.2 g/dL (3.4-5.0); Alkaline Phosphatase 99 U/L (45-117); Bilirubin Total 0.7 mg/dL (0.2-1.0); Protein, Total 6.3 g/dL (6.4-8.2)
[2021-04-01 06:19] LABS: Barbiturates NEGATIVE (NEGATIVE); Benzodiazepines NEGATIVE (NEGATIVE); Cocaine NEGATIVE (NEGATIVE); METHAMPHETAM NEGATIVE (NEGATIVE); Methadone NEGATIVE (NEGATIVE); Opiates POSITIVE (NEGATIVE); Phencyclidine NEGATIVE (NEGATIVE); THC Cannibis POSITIVE (NEGATIVE)
[2021-04-01] MEDS: CIPROFLOXACIN 400mg IV 400 MG/200 ML BAG IV SCH ×2 (08:48→21:23)
[2021-04-01] MEDS: METRONIDAZOLE 500mg IVPB 500 MG/100 ML BAG IV SCH ×2 (08:52→17:25)
[2021-04-01] MEDS: PANTOPRAZOLE 40 MG INJ IVP SCH ×2 (08:52→21:23)
[2021-04-01] MEDS ORDERED: KCL 20 MEQ/100 mL IVPB 20 MEQ/100 ML BAG IV SCH (09:00)
--- NOTE | 2021-04-01 10:51 | RAD REPORT ---
EXAM DESCRIPTION: RAD - Abdomen 1 View (KUB) - 04/01/2021 5:58 am CLINICAL HISTORY: The patient is 40 years old and is Male; severe abdominal pain TECHNIQUE: Frontal supine view of the abdomen/pelvis. COMPARISON: No relevant prior studies available. FINDINGS: Gastrointestinal tract: Multiple loops of dilated small bowel measuring up to 4.2 cm in diameter. Bones/joints: Unremarkable. Soft tissues: Clips in the right upper quadrant. IMPRESSION: Multiple loops of dilated small bowel measuring up to 4.2 cm in diameter. Findings are concerning for ileus or obstruction. Electronically signed by: Gumaro Cast MD 04/01/2021 6:07 AM CDT Due to temporary technical issues with the PACS/Fluency reporting system, reports are being signed by the in house radiologist without review as a courtesy to ensure prompt reporting. The interpreting r adiologist is fully responsible for the content of the report.
--- NOTE | 2021-04-01 13:05 | P.HP ---
Certification for Inpatient Patient admitted to: Inpatient With expected LOS: >2 Midnights Patient will require the following post-hospital care: None Practitioner: I am a practitioner with admitting privileges, knowledge of patient current condition, hospital course, and medical plan of care. Services: Services provided to patient in accordance with Admission requirements found in Title 42 Section 412.3 of the Code of Federal Regulations Patient History Date of Service: 03/31/21 Reason for admission: Intractable nausea & vomiting History of Present Illness: Patient is a 40-year-old gentleman with a history of Juarez's esophagus who came to the hospital with epigastric tenderness. Patient has been following up with Gastroenterology. Patient had intractable nausea and vomiting a few days ago. Patient symptoms improved and was discharged from the emergency room. Patient's symptom restarted once again. Patient came back into the emergency room for further evaluation. Patient was having persistent nausea and vomiting. We went ahead and started patient on gentle hydration. Patient will be admitted to the hospital for further evaluation. Allergies No Known Allergies Allergy (Unverified 12/21/16 20:12) Home Medications: Ergocalciferol (Vitamin D2) [Vitamin D 50,000 Unit Cap] 1 tab PO DAILY 11/04/20 Fluoxetine HCl [Prozac*] 1 tab PO DAILY 11/04/20 Omeprazole [Prilosec] 40 mg PO BID #60 capsule. 02/21/21 Aspirin 1 tab PO DAILY 03/31/21 - Past Medical/Surgical History Diabetic: No -: KIDNEY STONES -: TIA -: Hypertension -: GERD Past Surgical History: Patient denies surgical history -: EGD - Family History Mother Medical History: Diabetes, Cancer - Social History Smoking Status: Current some day smoker Alcohol use: No CD- Drugs: No Review of Systems 10-point ROS is otherwise unremarkable Physical Examination - Vital Signs Temperature: 97.6 F Blood Pressure: 129/72 Pulse: 51 Respirations: 16 Pulse Ox (%): 96 - Physical Exam General: Alert, In no apparent distress, Oriented x3 HEENT: Atraumatic, PERRLA, Mucous membr. moist/pink, EOMI, Sclerae nonicteric Neck: Supple, 2+ carotid pulse no bruit, No LAD, Without JVD or thyroid abnormality Respiratory: Clear to auscultation bilaterally, Normal air movement Cardiovascular: Regular rate/rhythm, Normal S1 S2, No murmurs Gastrointestinal: Normal bowel sounds, Soft and benign, Non-distended, No rebound, No guarding, Tenderness (Epigastric tenderness) Musculoskeletal: No clubbing, No swelling, No tenderness Integumentary: No rashes Neurological: Normal gait, Normal speech, Normal strength at 5/5 x4 extr, Normal tone, Sensation intact, Cranial nerves 3-12 intact, Normal affect Lymphatics: No axilla or inguinal lymphadenopathy Assessment & Plan - Problems (Diagnosis) (1) Intractable nausea and vomiting Current Visit: Yes Status: Acute (2) Barretts esophagus Current Visit: Yes Status: Acute (3) Hypertension Current Visit: No Status: Acute - Plan Plan: 1. Continue with anti emetics and IV fluids 2. Protonix twice a day 3. Clear liquid diet in a.m. 4. GI consultation symptoms not improving 5. Anxiolytics as needed 6. GI and DVT prophylaxis Discharge Plan: Home Plan to discharge in: Greater than 2 days - Advance Directives Does patient have a Living Will: No Does patient have a Durable POA for Healthcare: Yes - Code Status/Comfort Care Code Status Assessed: Yes Code Status: Full Code Critical Care: No Time Spent Managing PTS Care (In Minutes): 40
--- NOTE | 2021-04-01 13:09 | P.PN ---
Subjective Date of Service: 04/01/21 Physical Examination - Vital Signs Temperature: 97.6 F Blood Pressure: 129/72 Pulse: 51 Respirations: 16 Pulse Ox (%): 96 Assessment & Plan - Problems (Diagnosis) (1) Intractable nausea and vomiting Current Visit: Yes Status: Acute (2) Barretts esophagus Current Visit: Yes Status: Acute (3) Hypertension Current Visit: No Status: Acute - Plan Plan: 1. Continue with anti emetics and IV fluids 2. Protonix twice a day 3. Clear liquid diet in a.m. 4. GI consultation symptoms not improving 5. Anxiolytics as needed 6. GI and DVT prophylaxis - Advance Directives Does patient have a Living Will: No Does patient have a Durable POA for Healthcare: Yes - Code Status/Comfort Care Code Status: Full Code
[2021-04-01] MEDS: METOCLOPRAMIDE 10 MG/2mL INJ IV SCH (17:24)
[2021-04-02] MEDS: METRONIDAZOLE 500mg IVPB 500 MG/100 ML BAG IV SCH ×3 (00:24→17:53)
[2021-04-02] MEDS: NA CHLORIDE 0.9% 1,000 ML IV SCH (00:26)
[2021-04-02] MEDS ORDERED: SIMETHICONE 80 MG TAB PO ONE (00:41)
[2021-04-02] MEDS ORDERED: MAGNES/ALUMIN/SIMET 30ML UCUP PO ONE (00:42)
--- NOTE | 2021-04-02 07:14 | RAD REPORT ---
EXAM DESCRIPTION: RAD - Abdomen W Erect - 04/02/2021 6:46 am CLINICAL HISTORY: Abdominal pain FINDINGS: Free air is not seen beneath the diaphragm. Mildly dilated small bowel unchanged from April 01, 2021. Air within the colon is diminished
[2021-04-02] MEDS: CIPROFLOXACIN 400mg IV 400 MG/200 ML BAG IV SCH (08:38)
[2021-04-02] MEDS: PANTOPRAZOLE 40 MG INJ IVP SCH (08:38)
--- NOTE | 2021-04-02 14:33 | RAD REPORT ---
EXAM DESCRIPTION: RAD - Small Bowel Series - 04/02/2021 2:28 pm CLINICAL HISTORY: ileus/obstruction Abdominal pain COMPARISON: Abdomen Pelvis W Contrast dated 03/31/2021; Abdomen W Erect dated 04/02/2021 FINDINGS: Vehicle Maintenance Supervisor film shows a nonspecific bowel gas pattern. No obstruction or free air. No suspiciou s calcifications. Gastric size and mucosal fold pattern are normal. No delay in transit of contrast into the small jolie l. Small bowel is normal in diameter with no mucosal fold thickening. No intrinsic or extrinsic mass identifiable. Terminal ileum has normal appearance. Transit time to the colon is normal. No fluoroscopy was performed. Total images acquired: 10 IMPRESSION: Normal small bowel series.
[2021-04-02] MEDS: METOCLOPRAMIDE 10 MG/2mL INJ IV SCH (16:00)
[2021-04-02 18:03] VITALS: BP 119/75; TEMP 97.6
== END 2021-04-02 19:01 | disposition home or self-care (01) | DRG 392 ==
LOC: ER 11:14 → OBSVTOIN 16:06 → ERHOLD 16:06 → 2ND 16:58
PROVIDERS: ADMIT Hospitalist; ATTEND Hospitalist
DX: R11.2 Nausea with vomiting, unspecified (principal); K22.70 Barrett's esophagus without dysplasia; F17.210 Nicotine dependence, cigarettes, uncomplicated; K21.9 Gastro-esophageal reflux disease without esophagitis; I10 Essential (primary) hypertension; Z86.73 Personal history of transient ischemic attack (TIA), and cerebral infarction without residual deficits; Z90.49 Acquired absence of other specified parts of digestive tract; Z79.899 Other long term (current) drug therapy; Z79.82 Long term (current) use of aspirin; Z20.822 Contact with and (suspected) exposure to COVID-19
CPT/HCPCS: 36415; 74018; 74019; 74177; 74250; 80048; 80053; 80076; 80307; 83690; 85025; 96361; 96372; 96374; 96375; 99285; C9113; J0500; J0744; J2270; J2405; J2550; J2765; J3480; J7030; Q9967; U0003

== ENCOUNTER 2021-05-24 05:50 | Emergency (ER) | payer SELFPAY ==
--- OUTSIDE RECORDS SUMMARY | 2021-05-24 05:54 | XMS REPORT | Continuity of Care Document ---
:1980 Author Organization [facility] t Address [address] [place] [address] Care Team Providers Name Role Phone Pcp Primary Care Physician Unavailable Saloni CANALES, G Attending Clinician Doctor Unassigned, Name Attending Clinician Unavailable Nikhil Cisneros MD Attending Clinician KAYCE Attending Clinician Unavailable Kayce GUAMAN Attending Clinician Tyrone Jim MD Attending Clinician Megan Castellanos MD Attending Clinician [phone] Светлана Mann MD Attending Clinician [phone] Rubens Caldwell MD Attending Clinician Martha Hallman CRNA Attending Clinician Gideon Barakat MD Attending [...] Date Stop Date Quantity Comments Source History SDOH [facility] B[facility] Medical Rod[facility] ter Sex Assigned At [facility] Tobacco use and 2020-11-11 2020-11-11 Never used [facility] - exposure 00:00:00 00:00:00 [facility] Alcohol intake 2020-11-11 2020-11-11 [facility]finding[facility] History SDOH 2020-11-07 2020-11-[address] [facility] - Alcohol Frequency 00:00:00 00:00:00 [facility] Smoking Status Start Date Stop Date Source Current every day smoker 2020-11-11 00:00:00 [facility] Medications Ordered Filled Start Stop Current Ordering Indication Dosage Frequency Signature Comments Components Source Medication Medication Date Date Medication? Clinician (SIG) Name Name fluoxetine Yes 5mg QD Take [address] HCl 11-10 by mouth [facility] - (FLUOXETINE 10:10: daily 5mg M edical ORAL) 23 per Center patient (pharmacy review says 10mg). traMADoL No 50mg Take [address] (ULTRAM) 50 11-10 tablet (50 L ukes - mg tablet [...] Source Systolic blood 2020-11-10 08:15:00 143 mm[Hg] [facility] Diastolic blood 2020-11-10 08:15:00 73 mm[Hg] [facility] Heart rate 2020-11-10 08:15:00 60 /min [facility] Body temperature 2020-11-10 08:15:00 36.83 Abeba [facility] Respiratory rate 2020-11-10 08:15:00 18 /min [facility] Oxygen saturation in 2020-11-10 08:15:00 95 /min [facility] Arterial blood by Medical Ce nter Pulse oximetry Body height 2020-11-07 15:01:00 180.3 cm [facility] Body weight 2020-11-07 15:01:00 81.647 kg [facility] BMI 2020-11-07 15:01:00 25.10 kg/m2 [facility] Procedures Procedure Date / Time Performed Performing Clinician Lyn garret BASIC METABOLIC PANEL 2020-11-10 03:28:[address] MAGNESIUM 2020-11-10 03:28:[address] [facility] CBC W/PLT COUNT & AUTO 2020-11-10 03:28:00 [facility] HEPATIC FUNCTION PANEL 2020-11-10 03:28:00 [facility] TISSUE EXAM 2020-11-09 08:59:00 Kimberly Mann [facility] LAPAROSCOPY,CHOLECYSTECT 2020-11-09 07:35:00 Joe Mann [facility] BASIC METABOLIC PANEL 2020-11-09 03:59:00 [facility] MAGNESIUM 2020-11-09 03:59:[address] [facility] CBC W/PLT COUNT & AUTO 2020-11-09 03:59:00 Nalam, [facility] HEPATIC FUNCTION PANEL 2020-11-09 03:59:00 Nalam, [facility] ABORH, MANUAL 2020-11-08 04:37:00 Jake Pepper Valdivia [facility] LIPASE 2020-11-08 03:32:00 Ronn [facility] BASIC METABOLIC PANEL 2020-11-08 03:32:00 Nalam, [facility] MAGNESIUM 2020-11-08 03:32:00 Isatu, [facility] CBC W/PLT COUNT & AUTO 2020-11-08 03:32:00 Isatu, [facility] PROTHROMBIN TIME/INR 2020-11-08 03:32:00 [facility] 2020-11-08 03:32[facility]00 [facility] 2020-11-08 03:32:00 Ronn [facility] TYPE AND SCREEN, 2020-11-08 03:32:00 Ronn [facility] SARS-COV2/RT-PCR ([facility] & 2020-11-07 21:59:00 Ronn [facility] - REF LABS) [facility] REPORT OF PROCEDURE - 2020-11-07 17:33:51 Eleno Keane [facility] ENDOSCOPY [facility] [place] ERCP 2020-11-07 15:58:00 Khoa Esteban [facility] TISSUE EXAM 2020-11-07 15:21:00 Eleno Keane [facility] ERCP 2020-11-07 14:56:00 Eleno Keane [facility] PROCEDURE W/ C-ARM 2020-11-07 14:56:00 [facility]PAPILLOTOMY 2020-11-07 14:56:00 PashannonEleno [facility] ERCP,BALLOON SWEEPING 2020-11-07 14:56:00 Eleno Keane [facility] UPPER ENDOSCOPY,BIOPSY 2020-11-07 14:56:00 Eleno Keane [facility] MR BRAIN WITHOUT IV 2020-07-08 18:07:00 Bowser, [facility] MRA HEAD WITHOUT IV 2020-07-08 18:07:00 [facility] MRA NECK WITHOUT IV 2020-07-08 18:07:00 [facility], [facility] Plan of Care Planned Activity Planned Date Details Comments Source Future Scheduled 2020-10-[address] [facility] - Test 00:00:00 (12+) [code = Medical Center DEPRESSION SCREENING (12+)] Future Scheduled 2020-06-18 INFLUENZA VACCINE (#1) [facility] 00:00:00 [code = INFLUENZA Medical Ce nter VACCINE (#1)] Future Scheduled [address] [facility] Test 00:00:00 (procedure) [code = [facility] [id number]] Future Scheduled 1998 DTAP/TDAP/TD VACCINES CH I [...] Date/Time Type Type Clinicians Facility Department ID 2021-03-16 2021-03-16 Emergency [facility] [id number] 01:37:00 03:38:00 Dee Yates [id number] [place] 4.2.7.2.686 [place] [id number] [id number] 2020-12-12 2020-12-12 Orders Doctor JENNIFER [id number] 00:00:00 00:00:00 Only Unassigned, PARVIN [id number] [place] [facility] 4.2.7.2.686 [phone] [id number] 2020-11-30 2020-11-30 Telephone [facility] [id number] 00:00:00 00:00:00 Boo Nikhil Yates [id number] [place] 4.2.7.2.686 [facility] [phone] [address] 2020-10-31 2020-10-31 [facility] [id number] 00:00:00 00:00:00 Boo Nikhil Yates [id number] [place] 4.2.7.2.686 [facility] [phone] [address] 2020-09-06 2020-09-06 Orders Doctor JENNIFER 1.2.840.114 [id number] 00:00:00 00:00:00 Only Unassigned, PARVIN [id number] [place] [facility] 4.2.7.2.686 [id number] 2020-08-18 2020-08-18 Orders Doctor JENNIFER 1.2.840.114 [id number] 00:00:00 00:00:00 Only Unassigned, PARVIN 350.1.13.10 [place] [id number] [id number] [id number] 2020-08-06 2020-08-14 Office [facility] 1.2.840.114 [id number] 08:52:45 13:22:47 Visit Boo Nikhil Yates 350.1.13.10 [place] 4.2.7.2.686 [place] [phone] [address] Results Test Description Test Time Test Comments Results Result Comments Source Tissue Exam 2020-11-13 14:50:00 Test Item Value Reference Range Interpretation Comme nts Case Report (test code = 104) Surgical Pathology Report Case: [id number] Authorizing Provider: Kimberly Mann Collected: 11/09/2020 08:59 AM MD Светлана Ordering Location: [address] Received: 11/11/2020 08:24 AM Service Pathologist: Anahi León MD Specimen: Gallbladder DIAGNOSIS (test code = 3220) q5vxsIAgCGOqiNT3ImUiJVNlj6jin1FdpTPjuG Fy GKjoqZCkmrYtll52rXJ9bZ10MW7zJTXhNqV7OQBc kmS0Yag4VZNtGELeoLRlR949a7cnr0dyroFdyCD6 jYurTDQxEDDxJFdiDRDiLhAcLDpojfHkiCGyXW2e goOqiDQuhSStzQIwRGLhINSlmkMrR6XnKLC7syIt b7VdlIF6sD1zWSwtPVJim2VxWGwvYCQdrDVfAEQz GBjCDAsGOFDAQYJOZSSVIH5PTGSVH6WGJ9PZKCp7 SSVmwxXfRXVqZD5oJ2eBV94UTaTXOO5GTSDEP1EG CGkOIsmkEUFeLlOlGkn7NRDqiXLtKXRcRdk0BVVp pPKeUJNKuQbayF6wVRObrUosrR0czPA2JNQfwuGh bLFYgE6mCDRRfQ2kNtS5VtZiIbL0HKO1FGgyfEXl fQ== CPT Code(s) (test code = 3357) x0wzaWWqRCElkGO5NcXaAOFpu8itd5InlJQy cGFy TBgwrXLoqkYbpj25wPZ7dT04MG2hSIPcIzS9XFHn hfT8Rvj0EXDvHXOpqICaW970s8ocj4akafYtuNC7 fVxwYXJkXHBsYWluXGZzMjAgODgzMDRccGFyfQ== CLINICAL HISTORY (test code = 3356) c1jocUUbAVDkvVQ7QsZfWWPyo3auv6Z sdHBncGFy UQxelJRxwzErtn88oBV9bW39WS8qZHTaNuS7ULNw otQ9Cym3VSHwKZIlpOOdJ672z1nqm2dbbaDbwCH2 gLrpCVSjBYNiGEmcGGJdKpNzTEMch60zhjKwBNWc xU1nlYTdqG== SPECIMEN SOURCE (test code = 3377) d6ihyUYdXGLiqHR3HaLxRQYal1ibh4Ep dHBncGFy CZenmXGwqoRwqg17mMK2bL17AQ5kKRTqWtT8PQOd wjM5Lla8ZQNsJGBmwPXzF861w8zhl5grtsIreIL1 nUqbYQAgCNAtOGiuDVEpTzQfX9AasZHkTXNsEPOb cGFyfQ== GROSS DESCRIPTION (test code = 3366) s1xhdAFrFNWxrIEnVxOiZJIvBMHms4 lcZGVmbGFu QoAzGtQfIcWxFpyrwMWsXLZjUmAbe8xun523cSUr l0oqAWAhPnT9yABhZEKxuUQhE385f1cls2scguGx tFF0PYJtBRR7MMmljmSxdwF4HUbolBWyTcW4VCgs vcLiYTbivyUfonXsGhl2PAYiA994LAL5lXwlu4hh OXX4SXAoSZQoAiMfHc6neUJgM714VDBuWJTOISJt lIx0UYYrdcXyriSxfUWIv342V439l5kzMUQeuqRn zFrQkbbjc7owU182KMDhvNMukaRmXtSjPBRtfEEf qAB1YVXiOU8uykslUqAfIU4febaaKvXyPX6ercg8 SrXuWN7bbxvxJrUzCQlmMOYipvsmBRMnl5Fathkc DZ7hX7Zcm4X2rU5cuQMrHNZolQVxSfVhSLHtmp0a vSYuTNqbm0PvLNC9abQ5zEYvdWWwTNHxYN60Rrua g3UrIxzeITF3NQJtgzLfl3Eti6hmSnKxhrLlY4xp Z4YsVFApGWXdLLOtCbRatsQou6Quh0LcqPEybSp7 e5qcYJTlNCRutYwnr3mcUXS2UIFbF3A3nSCow4zh IWofBGCatKX0jjxdUZftZBXjwmS5haweSFoaSGPx dQO3ugrhERnnSZRnZbG3khexWJlzRCUqZSF7IZey k454RFQ3BOnzIyioJCaxLMAdtqMhbxUilAhdQHUa BRGzSQrjESCkWPjjMCQuLLIzTaZvqNoxfNgznK1j MhSdYpKvDUyrRB1tGXPcZ7qayHAcQWYwQNXeG8xt ZsMedG4pbOkpPYnxaxOoCAMfFZTlB0OivtVvUZLt ZXNoLCBsYWJlbGVkIHdpdGggdGhlIHBhdGllbnQn otCcQD7jZUOOMs4zLT3zJTApHAdxRtyvJKBjofEt VZ0hTRXmmeJsw4DqLF6uPNJrGLbcnDNkfFCcLMpa SvdpMNFvnoNaUx0mLQwxYmE6GQVfM39oPGecuBGc NCdbtjEhTVUxvUYgrRImjWM3uCOePHOvtJ2nRYst LENiaz8dQWPodsFtJV9godNzMEYtlP3diSmrd0f3 aQBjVZHkK7mbAQpcjRAcv7TmzEOpAQHswL1mkNpe SV5pB8cuIL3zMNV6ukD8dh8aYBNaeLX1jNNfPISd nOHorU7atIUej2UoRMzmTQ3kjBHxlwAsGF44DzGU jPWcF1VlzHMlJSUmKEYjeSBup0UhknXoTQNaYWEl urNrsXShVWMjQDwvMMZoo8QqrNYqClRwjIdeMiVm Iq1rB6dhkICddIRezyNhleLkzNLrvzLnMpkgPRIr ejZ7bUXqc1ElU5uuTW9pj7Pmu4QdP0faYA9kG95g bQVnumFaVzRYjSBwqJYvk3SjMCfjVWUxml8vvtSh xnNruqYcdXHbSvCorQdsiXWkJuUUhGIbf5GqhHS0 vIgzx89ds6LrwnLyC0CbZYPgFW7iBjSbL00kSH4y RFcmt8DeKKhhb2iqjxBfMWNeARkxSB53xPDxDJNo IPIaoKObl6BqxHN8fENfAVAoT3Ife73lNWOdDZQq qNYiqCZ3TYWsJIDppbspTBXqY0HgbFiuikBhk6Lx TNXddnVNYCsmG6owbUxoYTA9C5AgsCZoK3hkKUif pIRcKSkdGK6gZyDkAGxwVQYoFHN6WSyfvHoceDBw EASgAVzkjOsuxXEyTFZqdzMItLVmr5TlKTxwDNWy FMEZPPQtBJGABSlOC0CZMDXnLOKpmv5= MICROSCOPIC DESCRIPTION (test code = z3mrtFEcNNPnsHY6RoJtVKVfl1caa9 BsdHBncGFy 3378) UGidgEBhnhHyso75mQM2mS51AW9bGNUqTuT6EBOd kjL0Wen0JYVhQVRmdCAeF232r5umq6bbzyWsgJO1 cHakJFMeXWObTTvkMWTvXhTpAKUwAd1pnISwZgda YXJ9 Gross assessment was performed at (test [facility], code = 2777) Department of Pathology, [address] [place] [address], [place] [address], Technical component was performed at [facility] er, (test code = 2778) Department of Pathology, [address] [place] [address], Professional component was performed at [facility] C enter, (test code = 2779) Department of Pathology, [address] [place] [address], [facility] [id number] 14:50:00Surgical Pathology Report Case: [id number] Authorizing Provider: Kimberly Mann Collected: 11/09/2020 08:59 AM MD Светлана OrderingLocation: [address] Received: 11/11/2020 08:24 AM Service Pathologist: Anahi León MD Specimen: Gallb ladder This amendment is issued to correct a transcriptional error. A. GALLBLADDER, CHOLECYSTECTOMY: - CHRONIC CHOLECYSTITIS. Signing Pathologist Direct Phone Line: [phone] electronically signed by Anahi León MD on 11/13/2020 at 2:50 PM [id number] painGallbladderA. Received fresh, labeled with the patient's [...] 0.1-0.3 cm. No gross lesions are identified. Culinary Arts Instructor sections are submitted.Section codeA1: Cystic duct margin (blue), en faceA2: Gallbladder wallChelsea CHRISTIAN Buitrago PA (ASCP)cmPerformed.[facility], Department of Pathology, [address] [place] [address], [facility], [facility] of [facility], [address] [place] [address], [facility], [facility] of [facility], [address] [place] [address], DAJXTJ [id number] 11:14:00Surgical Pathology Report Case: [id number] Authorizing Provider: Eleno Keane MD Collected: 11/07/2020 03:21 PM Ordering Location: [address] Received: 11/08/2020 08:02 AM Service Pathologist: [...] OR MALIGNANCY Signing Pathologist Direct Phone Line: [phone] signed by Yadira Gardner MD on 11/08/2020 at 3:25 PMB. GMS stain is pending and will be reported in an addendum.[id number] obstructionA. DuodenumB. Esophagus, distalA. Received informalin labeled [...] evaluated Immunohistochemistry technical testing was performed at [facility], Pathology Laboratory where it was developed and [...] perform high complexity clinical laboratory testing.Basic metabolic [id number] 04:30:00 Test Item Value Reference Range Interpretation Comments Sodium (test code = 140 meq/L 294-672 4708-2) Potassium (test code = 3.6 meq/L 3.5-5.1 2823-3) Chloride (test code = 108 meq/L 98-107 H 2075-0) CO2 (test code = 26 meq/L 22-29 2028-9) BUN (test code = 10 mg/dL 7-21 3094-0) Creatinine (test code 0.72 mg/dL 0.57-1.25 = 2160-0) Glucose (test code = 119 mg/dL 70-105 H 2345-7) Calcium (test code = 8.1 mg/dL 8.4-10.2 L 80858-8) EGFR (test code = 120 mL/min/1.73 [place] [address]-0) NOT ACCURATE CREATININE CLEARANCE IN PREDICTING GLOMERULAR FILTRATION RATE . ESTIMATED GFR I S NOT APPLICABLE FOR DIALYSIS PATIENTS. TUCKER (test code = TUCKER) Administration Intern ID - EDASI Lab Interpretation Abnormal (test code = 36139-2) [facility] function [id number] 04:30:00 Test Item Value Reference Range Interpretation Comments Protein, Total (test 5.4 See_Comment L [Autom ated code = 2885-2) message] The system which generated this result transmit alok reference range : 6.0 - 8.3 gm/dL . The reference range was not u sed to interpret th is result as normal/abnormal . Albumin (test code = 3.2 g/dL 3.5-5 L 69274-2) Total Bilirubin (test 0.3 mg/dL 0.2-1.2 code = 1975-2) Bilirubin, Direct 0.2 mg/dL 0.1-0.5 (test code = 1967-7) Alkaline Phosphatase 105 U/L 40-150 (test code = 6768-6) AST (test code = 22 U/L 5-34 1920-8) ALT (test code = 26 U/L 6-55 1742-6) TUCKER (test code = TUCKER) Administration Intern ID - EDASI Lab Interpretation Abnormal (test code = 56555-7) [facility]st[facility]esium2021-01-24 04:30:00 Test Item Value Reference Range Interpretation Comments Magnesium (test code = 1.8 mg/dL 1.6-2.6 21974-6) TUCKER (test code = TUCKER) Administration Intern ID - EDASI Lab Interpretation (test Normal code = 58765-8) [facility]stBASIC METABOLIC [id number] 04:30:00 Test Item Value Reference Range Interpretation [...] S NOT APPLICABLE FOR DIALYSIS PATIEN TS. Administration Intern ID - [id number] 04:30:00 Test Item Value Reference Range Interpretation Comments MAGNESIUM (BEAKER) (test code = 1.8 mg/dL 1.6-2.6 627) Administration Intern ID - EDASIHEPATIC FUNCTION [id number] 04:30:00 Test Item Value Reference Range Interpretation [...] (test code = 26 U/L 6-55 347) Administration Intern ID - EDASICBC with platelet count + automated [id number] 03:48:00 Test Item Value Reference Range Interpretation Comments WBC (test code = 6690-2) 11.3 See_Comment H [A utomated message] The system Zarpo generated this result transmitted ref erence range: 3.5 - 10 .5 K/L. The refe rence range was not u sed to interpret this result as normal/abnor mal. RBC (test code = 789-8) 3.71 See_Comment L [Au tomated message] The system Zarpo generated this result transmitted ref erence range: 4.63 - 6 .08 M/L. The refe rence range was not u sed to interpret this result as normal/abnor mal. MCHC (test code = 786-4) 33.2 See_Comment L [A utomated message] The system Zarpo generated this result transmitted ref erence range: [...] See_Comment [Aut omated message] 777-3) The system [employer]po generated this result transmitted ref erence range: 150 - 45 0 K/CU MM. The referen ce range was not u sed to interpret this result as normal/abnor mal. MPV (test code = 10.8 fL 9.4-12.4 22881-5) nRBC (test code = 413) 0 See_Comment [Aut omated message] The system Zarpo generated this result transmitted ref erence range: [...] H [Aut omated message] 670) The system Zarpo generated this result transmitted ref erence range: 1.78 - 5 .38 K/L. The refe rence range was not u sed to interpret this result as normal/abnor mal. # Lymphs (test code = 2.59 See_Comment [Auto mated message] 414) The system Zarpo generated this result transmitted ref erence range: 1.32 - 3 .57 K/L. The refe rence range was not u sed to interpret this result as normal/abnor mal. # Monos (test code = 1.46 See_Comment H [Autom ated message] 415) The system Zarpo generated this result transmitted ref erence range: 0.30 - 0 .82 K/L. The refe rence range was not u sed to interpret this result as normal/abnor mal. # Eos (test code = 416) 0.13 See_Comment [Au tomated message] The system Zarpo generated this result transmitted ref erence range: 0.04 - 0 .54 K/L. The refe rence range was not u sed to interpret this result as normal/abnor mal. # Baso (test code = 417) 0.02 See_Comment [A utomated message] The system Zarpo generated this result transmitted ref erence range: 0.01 - 0 .08 K/L. The refe rence range was not u sed to interpret this result as normal/abnor mal. Immature 0 % 0-1 Granulocytes-Relative (test code = 2801) Lab Interpretation (test Abnormal code = 52763-7) [facility] W/PLT COUNT & AUTO [id number] 03:48:00 Test Item Value Reference Range Interpretation [...] 0-1 PERCENT (BEAKER) (test code = 2801) [id number] 05:11:00 Test Item Value Reference Range Interpretation Comments MAGNESIUM (BEAKER) (test code = 1.8 mg/dL 1.6-2.6 627) Administration Intern ID - ADMINHEPATIC FUNCTION [id number] 05:11:00 Test Item Value Reference Range Interpretation [...] (test code = 29 U/L 6-55 347) Administration Intern ID - ADMINBASIC METABOLIC [id number] 05:11:00 Test Item Value Reference Range Interpretation [...] S NOT APPLICABLE FOR DIALYSIS PATIEN TS. Administration Intern ID - ADMINCBC W/PLT COUNT & AUTO [id number] 04:33:00 Test Item Value Reference Range Interpretation [...] Not Detected, (test code = Negative, See 66632-8) external report for linked test [facility]-COV-2 [facility] (test code = 97072-0) TUCKER (test code = Negative result for [...] of the Act. Fact Sheet for Healthcare Providers:https://www.[employer]/sites/default/f shayla/product/documents/F act_Sheet_HC_Providers_L ape_DNPB-NdM-5.pdf Fact Sheet for Healthcare Patients:https://www.[employer]/sites/default/fi les/product/documents/Fa ct_Sheet_Patients_Lyra_S ARS-CoV-2.pdf Performing Laboratory:[place] [address], [place] [address] [place], [place] [address]ARS-COV2/RT-PCR ([facility] & REF LABS)2020-11-08 09:38:00 Test Item Value Reference Range Interpretation Comments SARS-COV2/RT-PCR (test Negative Not Detected, Negative, code = 8585094) See external report for linked test SARS-COV-[address] [facility] (test code = 0771307) Negative result for this test determines that [...] 564(g) of the Act.Fact Sheet for Healthcare Providers:https://www.[employer]/sites/default/files/product/documents/Fact_Shee y_EP_Zyspvknyl_Sekl_OBTV-CcZ-4.pdfFact Sheet for Healthcare Patients:https://www.[employer]/sites/default/files/product/ documents/Tjzr_Tzkxs_Wnmlzpww_Sutp_TNXU-YdO-5.pdfPerforming Laboratory:[facility], [place] [address]NDBBJ, manual 2020-11-08 05:35:00 Test Item Value Reference Range Interpretation Comments ABO Grouping (test code = 2588) O Rh Factor (test code = 2589) POS [facility]Type and screen, [id number] 05:10:00 Test Item Value Reference Range Interpretation Comments ABO/RH AUTOMATED (BEAKER) (test O POSITIVE code = 2260) Ab Scrn (test code = 890-4) NEGATIVE [facility]stLipase2021-01-22 04:42:00 Test Item Value Reference Range Interpretation Comments Lipase (test code = 12 U/L 78 3040-3) TUCKER (test code = TUCKER) Administration Intern ID - DAAN W Lab Interpretation (test Normal code = 06665-5) [facility]stBASIC METABOLIC [id number] 04:42:00 Test Item Value Reference Range Interpretation [...] S NOT APPLICABLE FOR DIALYSIS PATIEN TS. Administration Intern ID - DANA [id number] 04:42:00 Test Item Value Reference Range Interpretation Comments MAGNESIUM (BEAKER) (test code = 1.8 mg/dL 1.6-2.6 627) Administration Intern ID - DANA WHEPATIC FUNCTION [id number] 04:42:00 Test Item Value Reference Range Interpretation [...] (test code = 38 U/L 6-55 347) Administration Intern ID - DANA [id number] 04:42:00 Test Item Value Reference Range Interpretation Comments LIPASE (BEAKER) (test code = 749) 12 U/L 8-78 Administration Intern ID - DANA WProthrombin time/[id number] 04:35:00 Test Item Value Reference Interpretation Comments [...] valves. Lab Interpretation Abnormal (test code = 57730-3) [facility] HillcrestaPTT2021-01-22 04:35:00 Test Item Value Reference Range Interpretation Comments PTT (test code = 59401-4) 28.4 See_Comment [ Automated message] The system Zarpo generated this result transmitted ref erence range: 22.5 - 3 6.0 seconds. The re ference range was not u sed to interpret this result as normal/abnor mal. Lab Interpretation (test Normal code = 06464-7) [facility] Hill[facility]stPROTHROMBIN TIME/[id number] 04:35:00 Test Item Value Reference Range Interpretation [...] INR is2.5-3.5 for patients wiht mechanical heart valves.[id number] 04:35:00 Test Item Value Reference Range Interpretation Comments PARTIAL THROMBOPLASTIN TIME 28.4 seconds 22.5-36.0 (BEAKER) (test code = 760) CBC W/PLT COUNT & AUTO [id number] 03:57:00 Test Item Value Reference Range Interpretation [...] PERCENT (BEAKER) (test code = 2801) [place], [id number] 16:06:13Reason for exam:->[facility] 1980 Sex: MFluoroscopic unit utilized for a procedure performed in the OR. No interpretation was requested. Refer to the operative report for findings. Refer to PACS for patient radiation dose information.FL Endoscopic Retrograde [id number] 15:58:00Interface, External Ris In - 11/08/2020 9:42 AM CSTFluoroscopic unit utilized for a procedure performed in the OR. No interpretation was requested. Refer to the operative report for findings. [place] PACS for patient radiation dose information.[facility], WITHOUT CONTRAST 2020-07-08 19:26:00Unlisted Reason for Exam - Click Yes and Enter Reason Below- >YesUnlisted Reason for Exam->tingling/numbnessFINAL REPORT MR, BRAIN, WITHOUT CONTRAST, MR, MRA, BRAIN, WITHOUT CONTRAST, MR, MRA, NECK, WITHOUT IV CONTRAST INDICATION: Unlisted Reason for Examtingling/numbness TECHNIQUE: Multiplanar, multisequence MR imaging of the brain without intravenous contrast.MRA of the head utilizing 3-D aovq-xh-gyvgpd technique, with 3-D reconstructions.MRA of the neck utilizing 2-D and 3-D bnkn-hz-ujfoaj technique, with 3-D reconstructions. COMPARISON: None FINDINGS: [...] Date/Time: 07/08/2020 19:26:58 MR, MRA, BRAIN, WITHOUT [id number] 19:26:00Unlisted Reason for Exam - Click Yes and Enter Reason Below->YesUnlisted Reason for Exam->tingling, numbnessFINAL REPORT MR, BRAIN, WITHOUT CONTRAST, MR, MRA, BRAIN, WITHOUT CONTRAST, MR, MRA, NECK, WITHOUT IV CONTRAST INDICATION: Unlisted Reason for Examtingling/numbness TECHNIQUE: Multiplanar, multisequence MR imaging of the brain without intravenous contrast.MRA of the head utilizing 3-D fwzx-fa-xdctqp technique, with 3-D reconstructions.MRA of the neck utilizing 2-D and 3-D etqp-bw-cethql technique, with 3-D reconstructions. COMPARISON: None FINDINGS: [...] Signed: Paloma Mcelroy Verified Date/Time: 07/08/2020 19:26:58 MR, MRA, NECK, WITHOUT IV [id number] 19:26:00Unlisted Reason for Exam - Click Yes and Enter Reason Below->YesUnlisted Reason for Exam->tingling, numbnessFINAL REPORT MR, BRAIN, WITHOUT CONTRAST, MR, MRA, BRAIN, WITHOUT CONTRAST, MR, MRA, NECK, WITHOUT IV CONTRAST INDICATION: Unlisted Reason for Examtingling/numbness TECHNIQUE: Mul tiplanar, multisequence MR imaging of the brain without intravenous contrast.MRA of the head utilizing 3-D oadc-mq-ocnnbn technique, with 3-D reconstructions.MRA of the neck utilizing 2-D and 3-D hcze-pt-pmzeii technique, with 3-D reconstructions. COMPARISON: None FINDINGS: [...] Signed: Paloma Mcelroy Verified Date/Time: 07/08/2020 19:26:58 MRA head without IV [id number] 19:26:00Interface, External Ris In - 07/08/2020 7:29 PM CDTFINAL REPORT MR, BRAIN, WITHOUT CONTRAST, MR, MRA, BRAIN, WITHOUT CONTRAST, MR, MRA, NECK, WITHOUT IV CONTRAST INDICATION: Unlisted Reason for Examtingling/numbness TECHNIQUE: Multiplanar, multisequence MR imaging of the brain without intravenous contrast.MRA of the head utilizing 3-D ocuk-aa-ywpaji technique, with 3-D reconstructions.MRA of the neck utilizing 2-D and 3-D wiuo-dr-bjzgef technique, with 3-D reconstructions. COMPARISON: None FINDINGS: [...] Signed: Paloma Mcelroy Verified Date/Time: 07/08/2020 19:26:58 [facility] 2020-07-08 19:26:00Interface, External Ris In - 07/08/2020 7:29 PM CDTFINAL REPORT MR, BRAIN, WITHOUT CONTRAST, MR, MRA, BRAIN, WITHOUT CONTRAST, MR, MRA, NECK, WITHOUT IV CONTRAST INDICATION: Unlisted Reason for Examtingling/numbness TECHNIQUE: Multiplanar, multisequence MR imaging of the brain without intravenous contrast.MRA of the head utilizing 3-D myqc-kt-jtvzfx technique, with 3-D reconstructions.MRA of the neck utilizing 2-D and 3-D eojt-ay-xqmgzb technique, with 3-D reconstructions. COMPARISON: None FINDINGS: [...] Paloma Mcelroy MDReport Verified Date/Time: 07/08/2020 19:26:58 [facility] [id number] 19:26:00 Interface, External Ris In - 07/08/2020 7:29 PM CDTFINAL REPORT MR, BRAIN, WITHOUT CONTRAST, MR, MRA, BRAIN, WITHOUT CONTRAST, MR, MRA, NECK, WITHOUT IV CONTRAST INDICATION: Unlisted Reason for Examtingling/numbness TECHNIQUE: Multiplanar, multisequence MR imaging of the brain without intravenous contrast.MRA of the head utilizing 3-D zker-xa-kpqhtj technique, with 3-D reconstructions.MRA of the neck utilizing 2-D and 3-D ohql-zg-igtnqg technique, with 3-D reconstructions. COMPARISON: None FINDINGS: [...]
[2021-05-24 06:48] LABS: Absolute Lymphocytes (CBC) 2.3 K/uL (0.7-4.9); Basophils % 0.4 % (0-1.3); Hematocrit 47.2 % (39.6-49.0); Lymphocytes % 17.8 % (15.3-44.8); MPV 9.1 fL (7.6-11.3); RBC Red Blood Cell Count 5.52 M/uL (4.33-5.43)
[2021-05-24 06:49] LABS: Protime INR 0.97
[2021-05-24] MEDS ORDERED: NA CHLORIDE 0.9% 1,000 ML ONE (06:58)
[2021-05-24] MEDS ORDERED: ONDANSETRON 4 MG/2 ML VIAL ONE (06:58)
[2021-05-24] MEDS ORDERED: MORPHINE 2 MG/ML SYR ONE (06:58)
[2021-05-24] MEDS ORDERED: NA CHLORIDE 0.9% 0 ML ONE (06:59)
[2021-05-24 07:44] LABS: Bilirubin Direct 0.1 mg/dL (0-0.2); Bilirubin Total 0.4 mg/dL (0.2-1.0); Protein, Total 7.5 g/dL (6.4-8.2); Troponin (Emerg Dept Use Only) 0.02 ng/mL (0.0-0.045)
[2021-05-24 07:47] LABS: Magnesium 2.1 mg/dL (1.8-2.4)
[2021-05-24 07:48] LABS: Potassium 2.8 mmol/L (3.5-5.1)
[2021-05-24] MEDS ORDERED: KCL 20 MEQ/100 mL IVPB 20 MEQ/100 ML BAG IV ONE (08:20)
--- NOTE | 2021-05-24 08:23 | RAD REPORT ---
EXAM DESCRIPTION: CTAbdomen Pelvis W Contrast - 05/24/2021 8:10 am CLINICAL HISTORY: Abdominal pain. ABD PAIN COMPARISON: Abdomen Pelvis W Contrast dated 03/31/2021; Abdomen Pelvis W Contrast dated 03/14/2021 ; Abdomen Pelvis W Contrast dated 02/18/2021; Abdomen Pelvis W Contrast dated 11/04/2020 TECHNIQUE: Biphasic CT imaging of the abdomen and pelvis was performed with 100 ml non-ionic IV cont rast. All CT scans are performed using dose optimization technique as appropriate and may include automated exposure control or mA/KV adjustment according to patient size. FINDINGS: The lung bases are clear.Mild thickening of distal esophagus. No focal liver lesions. Cholecystectomy. Low-density left renal lesion which is likely cysts. The aguilera creas unremarkable. The spleen is within normal limits. No retroperitoneal lymphadenopathy. Unchanged left adrenal nodule measuring 21 millimeters per. No bowel obstruction, free air, free fluid or abscess. No evidence of significant lymphadenopathy. No suspicious bony findings. IMPRESSION: No acute intra-abdominal or pelvic finding. Incidental findings including left adrenal lesion for which additional imaging was recommended on rec ent prior CTs.
--- NOTE | 2021-05-24 08:31 | RAD REPORT ---
EXAM DESCRIPTION: RAD - Chest Single View - 05/24/2021 7:04 am CLINICAL HISTORY: CHEST PAIN COMPARISON: Abdomen 1 View (KUB) dated 04/01/2021; Chest Single View dated 11/04/2020; Chest Single Vi ew dated 07/13/2020; Chest Single View dated 07/08/2020 FINDINGS: No evidence of edema or pneumonia. The heart size is within normal limits.No acute osseous abnormality. No significant pleural effusions or pneumothorax. IMPRESSION: No acute cardiopulmonary disease.
--- NOTE | 2021-05-24 09:19 | RAD REPORT ---
EXAM DESCRIPTION: CT - Head Brain Wo Cont - 05/24/2021 8:05 am CLINICAL HISTORY: MENTAL STATUS CHANGE COMPARISON: Head angio dated 07/13/2020; Ct Stroke Brain Wo Cont dated 07/13/2020 TECHNIQUE: All CT scans are performed using dose optimization technique as appropriate and may inclu de automated exposure control or mA/KV adjustment according to patient size. FINDINGS: No intracranial hemorrhage, hydrocephalus or extra-axial fluid collection.No areas of brai n edema or evidence of midline shift. The paranasal sinuses and mastoids are clear. The calvarium is intact. IMPRESSION: No acute intracranial abnormality.
[2021-05-24] MEDS ORDERED: PANTOPRAZOLE 40 MG INJ ONE ×2 (10:11→10:24)
[2021-05-24] MEDS ORDERED: LIDOCAINE VISCOUS 2% SOLN 15 ML UDC ONE (10:11)
[2021-05-24] MEDS ORDERED: MAGNES/ALUMIN/SIMET 30ML UCUP ONE (10:11)
--- NOTE | 2021-05-24 10:11 | EDPHYS ---
Physician Documentation [facility] Name: Ta Quezada Age: 41 yrs Sex: Male : 1980 Arrival Date: 05/24/2021 Time: 06:16 Bed 4 Private MD: ED Physician Romario Miller HPI: 05/24 09:49 This 41 yrs old Male presents to ER via EMS with complaints of Abdominal pain.kb 09:49 The patient presents with abdominal pain in the epigastric area. Onset: The kb symptoms/episode began/occurred 1 week(s) ago. The symptoms radiate to xiphoid area and mid-sternal area. Associated signs and symptoms: Pertinent positives: nausea, vomiting. The symptoms are described as constant, crampy. Modifying factors: The symptoms are alleviated by nothing, the symptoms are aggravated by nothing. Severity of pain: At its worst the pain was moderate in the emergency department the pain is unchanged. The patient has experienced similar episodes in the past. The patient has not recently seen a physician. Pt reports epigastric pain that radiates up esophagus. States it has been getting progressively worse over the last week. gave pt a xanax prior to arrival and states pt wasn't acting right afterwards. Pt states he has barretts esophagus and has had this a few times. Historical: - Allergies: 06:20 No Known Allergies; lp1 - Home Meds: 06:20 fluoxetine 10 mg Oral cap once daily [Active]; Prilosec 40 mg Oral cpDR 1 cap once lp1 daily [Active]; Vitamin D 500 units daily Oral [Active]; - PMHx: 06:20 Depression; GERD; Hypertension; Kidney stones; TIA; lp1 - PSHx: 06:20 Cholecystectomy; lp1 - Immunization history:: Adult Immunizations up to date. - Social history:: Smoking status: Patient reports the use of cigarette tobacco products, denies chronic smoking, but will smoke occasionally. ROS: 09:43 Constitutional: Negative for fever, chills, and weight loss. kb 09:43 Abdomen/GI: Positive for abdominal pain, nausea and vomiting, Negative for diarrhea, constipation. 09:43 All other systems are negative. Exam: 06:57 Constitutional: This is a well developed, well nourished patient who is awake, alert, kb and in no acute distress. ENT: Moist Mucous membranes Cardiovascular: Regular rate and rhythm with a normal S1 and S2. No gallops, murmurs, or rubs. No pulse deficits. Respiratory: Respirations even and unlabored. No increased work of breathing, no retractions or nasal flaring. Skin: Warm, dry with normal turgor. Normal color. MS/ Extremity: Pulses equal, no cyanosis. Neurovascular intact. Full, normal range of motion. Neuro: Awake and alert, GCS 15, oriented to person, place, time, and situation. Moves all extremities. Normal gait. Psych: Awake, alert, with orientation to person, place and time. Behavior, mood, and affect are within normal limits. 06:57 ECG was reviewed by the Attending Physician. 06:57 Abdomen/GI: Inspection: abdomen appears normal, Bowel sounds: normal, in all quadrants, Palpation: soft, in all quadrants, moderate abdominal tenderness, in the epigastric area, right upper quadrant and left upper quadrant. Vital Signs: 06:17 BP 124 / 106; Pulse 105; Resp 18; Temp 98.4(O); Pulse Ox 98% on R/A; Weight 94.35 kg lp1 (R); Height 5 ft. 11 in. (180.34 cm); Pain 10/10; 07:15 BP 166 / 99; Pulse 84; Resp 22 S; Pulse Ox 96% on R/A; aa5 09:30 BP 107 / 84; Pulse 95; Resp 20 S; Pulse Ox 97% on R/A; aa5 11:00 BP 133 / 88; Pulse 67; Resp 16 S; Temp 98.0(TE); Pulse Ox 97% on R/A; aa5 06:17 Body Mass Index 29.01 (94.35 kg, 180.34 cm) lp1 MDM: 06:24 Patient medically screened. kb 06:58 Data reviewed: vital signs, nurses notes. Data interpreted: Pulse oximetry: on room air kb is 98 %. Interpretation: normal. 09:42 Counseling: I had a detailed discussion with the patient and/or guardian regarding: the kb historical points, exam findings, and any diagnostic results supporting the discharge/admit diagnosis, lab results, radiology results, the need for outpatient follow up, a family practitioner, a billing services manager, to return to the emergency department if symptoms worsen or persist or if there are any questions or concerns that arise at home. ED course: Discussed diagnostics and exam findings with Dr. Rivera. Recommends outpatient follow-up.. 05/24 06:28 Order name: Basic Metabolic Panel kb 05/24 06:28 Order name: CBC with Diff; Complete Time: 07:10 kb 08 06:28 Order name: LFT's; Complete Time: 07:49 kb 08 06:28 Order name: Magnesium; Complete Time: 07:49 kb 08 06:28 Order name: NT PRO-BNP; Complete Time: 07:49 kb 08 06:28 Order name: PT-INR; Complete Time: 07:10 kb 08 06:28 Order name: Troponin (emerg Dept Use Only); Complete Time: 07:49 kb 05/24 06:28 Order name: XRAY Chest (1 view); Complete Time: 08:45 kb 08 06:28 Order name: Lipase; Complete Time: 07:49 kb 08 06:28 Order name: CT Head Brain wo Cont; Complete Time: 09:31 kb 05/24 06:28 Order name: CT Abd/Pelvis - IV Contrast Only; Complete Time: 08:28 kb 05/24 06:28 Order name: Basic Metabolic Panel; Complete Time: 07:49 EDMS 08 06:28 Order name: EKG; Complete Time: 06:28 kb 08 06:28 Order name: Cardiac monitoring; Complete Time: 06:33 kb 08 06:28 Order name: EKG - Nurse/Tech; Complete Time: 07:07 kb 08 06:28 Order name: IV Saline Lock; Complete Time: 06:33 kb 05/24 06:28 Order name: Labs collected and sent; Complete Time: 06:33 kb 05/24 06:28 Order name: O2 Per Protocol; Complete Time: 06:33 kb 08 06:28 Order name: O2 Sat Monitoring; Complete Time: 06:33 kb EC:57 Rate is 105 beats/min. Rhythm is regular. QRS [place] is Normal. SD interval is normal at kb 148 msec. QRS interval is normal at 98 msec. QT interval is normal at 406 msec. Administered Medications: 07:06 Drug: morphine 2 mg Route: IVP; Site: right antecubital; lp1 07:20 Follow up: Response: No adverse reaction aa5 07:07 Drug: NS 0.9% 1000 ml Route: IV; Rate: 1000 ml; Site: right antecubital; lp1 07:07 Drug: Zofran (Ondansetron) 4 mg Route: IVP; Site: right antecubital; lp1 07:20 Follow up: Response: No adverse reaction aa5 08:20 Drug: Potassium Chloride 20 mEq Route: IV; Rate: calculated rate; Site: right aa5 antecubital; 10:00 Follow up: IV Status: Infusion continued; Drip was decreased previously due to aa5 increased burning to arm. 10:55 Follow up: Response: No adverse reaction; IV Status: Completed infusion jl7 09:55 Drug: ProTONIX (pantoprazole) 80 mg Route: IVP; Site: right antecubital; aa5 10:10 Follow up: Response: No adverse reaction aa5 09:55 Drug: GI Cocktail without - (Maalox Suspension 30 ml, Lidocaine Liquid 2 % 15 aa5 ml) Route: PO; 10:10 Follow up: Response: No adverse reaction aa5 10:55 Drug: Potassium Chloride 40 mEq Route: PO; jl7 11:30 Follow up: Response: No adverse reaction aa5 Disposition: 19:04 Co-signature as Attending Physician, Romario Miller MD. pkl Disposition Summary: 05/24/21 10:11 Discharge Ordered Location: Home kb Condition: Stable kb Diagnosis - Epigastric pain kb - Hypokalemia kb Followup: kb - With: Emergency Department - When: As needed - Reason: Worsening of condition Followup: kb - With: Private Physician - When: 2 - 3 days - Reason: Recheck today's complaints, Continuance of care, Re-evaluation by your physician Discharge Instructions: - Discharge Summary Sheet kb - Juarez's Esophagus kb - Hypokalemia kb Forms: - Medication Reconciliation Form kb - Thank You Letter kb - Antibiotic Education kb - Prescription Opioid Use kb Prescriptions: - Protonix 40 mg Oral Tablet - take 1 tablet by ORAL route once daily; 30 tablet; Refills: 0, Product kb Selection Permitted - Reglan 10 mg Oral Tablet - take 1 tablet by ORAL route every 6 hours take 30 minutes before meals and at kb bedtime; 20 tablet; Refills: 0, Product Selection Permitted Signatures: Dispatcher [employer] Aubrie Leal, EMMA-C PARTS ANALYST-CkRomario Mendoza MD MD pkl Calderon, Audri, RN RN aa5 Gracie Mazariegos, RN RN lp1 Jordan Ott, RN RN jl7
--- NOTE | 2021-05-24 10:11 | ER ---
Nurse's Notes [facility] Name: Ta Quezada Age: 41 yrs Sex: Male : 1980 Arrival Date: 05/24/2021 Time: 06:16 Bed 4 Private MD: Diagnosis: Epigastric pain;Hypokalemia Presentation: 05/24 06:17 Chief complaint: EMS states: Called for patient who reports was not acting right; lp1 patient has hx of barretts esophagus and was given Lorazepam pill by , unable to recall what time, reports it was 0.25mg tablet. Coronavirus screen: Client denies travel out of the [place] in the last 14 days. At this time, the client does not indicate any symptoms associated with coronavirus-19. Ebola Screen: No symptoms or risks identified at this time. Initial Sepsis Screen: Does the patient meet any 2 criteria? No. Patient's initial sepsis screen is negative. Does the patient have a suspected source of infection? No. Patient's initial sepsis screen is negative. Risk Assessment: Do you want to hurt yourself or someone else? Patient reports no desire to harm self or others. Onset of symptoms was May 24, 2021. 06:17 Method Of Arrival: EMS: [facility] lp1 06:17 Acuity: RENE 3 lp1 Triage Assessment: 06:20 General: Appears uncomfortable, Behavior is restless, Patient moving around in bed, lp1 reports pain to epigastric area of abdomen . Historical: - Allergies: 06:20 No Known Allergies; lp1 - Home Meds: 06:20 fluoxetine 10 mg Oral cap once daily [Active]; Prilosec 40 mg Oral cpDR 1 cap once lp1 daily [Active]; Vitamin D 500 units daily Oral [Active]; - PMHx: 06:20 Depression; GERD; Hypertension; Kidney stones; TIA; lp1 - PSHx: 06:20 Cholecystectomy; lp1 - Immunization history:: Adult Immunizations up to date. - Social history:: Smoking status: Patient reports the use of cigarette tobacco products, denies chronic smoking, but will smoke occasionally. Screenin:20 Abuse screen: Denies threats or abuse. Denies injuries from another. Nutritional lp1 screening: No deficits noted. Tuberculosis screening: No symptoms or risk factors identified. Fall Risk Total Umana Fall Scale indicates High Risk Score (45 or more points). Fall prevention measures have been instituted. Side Rails Up X 2 As available patient and family educated on Fall Prevention Program and Strategies. Assessment: 06:27 General: Appears uncomfortable, Behavior is anxious, restless. Pain: Complains of pain lp1 in epigastric area Pain currently is 10 out of 10 on a pain scale. Quality of pain is described as Reports "it feels like a hole in my chest". Neuro: Level of Consciousness is awake, obeys commands, Oriented to person, place, Speech is normal. Cardiovascular: Patient's skin is warm and dry. Respiratory: Respiratory effort is even, Breath sounds are clear bilaterally. GI: Abdomen is non-distended, Abdomen is tender to palpation in epigastric area Reports upper abdominal pain. : No signs and/or symptoms were reported regarding the genitourinary system. EENT: No signs and/or symptoms were reported regarding the EENT system. Derm: Skin is intact, Skin is dry, Skin is normal. Musculoskeletal: No deficits noted. 07:00 General: Appears uncomfortable, Behavior is restless. Pain: Complains of pain in aa5 epigastric area Pain currently is 10 out of 10 on a pain scale. Neuro: Level of Consciousness is awake, obeys commands, confused, Oriented to person, place, Moves all extremities. Speech is normal. Cardiovascular: Heart tones S1 S2 present Rhythm is regular. Respiratory: Airway is patent Respiratory effort is even, unlabored, Respiratory pattern is regular, symmetrical. GI: Abdomen is round non-distended, Bowel sounds present X 4 quads. Abdomen is tender to palpation in epigastric area Patient currently denies nausea. : No signs and/or symptoms were reported regarding the genitourinary system. EENT: No signs and/or symptoms were reported regarding the EENT system. Derm: Skin is pink, warm \\T\\ dry. Musculoskeletal: Range of motion: intact in all extremities. 08:20 Reassessment: Patient is alert, oriented x 3, equal unlabored respirations, skin aa5 warm/dry/pink. Patient denies pain at this time. Patient states feeling better. Patient states symptoms have improved. 08:20 Reassessment: Pt back from CT scan . aa5 08:20 Reassessment: Pt states he does not remember getting to the hospital, pt asking how aa5 long he has been here, notified pt he came via EMS after his called 911. Pt states "I know my gave me a pill to help me sleep but don't remember anything after". Pt also reports nausea/vomiting/diarrhea "for a few days now". 09:55 Reassessment: Pt resting in bed with eyes closed, easy to awaken to verbal stimuli, pt aa5 reports intermittent epigastric pain. . 10:08 Reassessment: Patient is alert, oriented x 3, equal unlabored respirations, skin aa5 warm/dry/pink. Using urinal . 11:00 Reassessment: Pt resting in bed with eyes closed, awaiting ride home. . aa5 11:33 Reassessment: Patient is alert, oriented x 3, equal unlabored respirations, skin aa5 warm/dry/pink. Vital Signs: 06:17 BP 124 / 106; Pulse 105; Resp 18; Temp 98.4(O); Pulse Ox 98% on R/A; Weight 94.35 kg lp1 (R); Height 5 ft. 11 in. (180.34 cm); Pain 10/10; 07:15 BP 166 / 99; Pulse 84; Resp 22 S; Pulse Ox 96% on R/A; aa5 09:30 BP 107 / 84; Pulse 95; Resp 20 S; Pulse Ox 97% on R/A; aa5 11:00 BP 133 / 88; Pulse 67; Resp 16 S; Temp 98.0(TE); Pulse Ox 97% on R/A; aa5 06:17 Body Mass Index 29.01 (94.35 kg, 180.34 cm) lp1 ED Course: 06:10 Inserted saline lock: 20 gauge in right antecubital area, using aseptic technique. lp1 Blood collected. 06:16 Patient arrived in ED. lp1 06:20 Triage completed. lp1 06:20 Arm band placed on right wrist. lp1 06:21 Patient has correct armband on for positive identification. Bed in low position. Side lp1 rails up X2. personnel monitor on. Pulse ox on. NIBP on. 06:22 Gracie Mazariegos RN is Primary Nurse. lp1 06:24 Aubrie Flores [facility]-C [facility]. kb 06:24 Romario Miller MD is Attending Physician. kb 07:00 Report received from Gracie Mazariegos RN. aa5 07:04 XRAY Chest (1 view) In Process Unspecified. EDMS 08:06 CT Head Brain wo Cont In Process Unspecified. EDMS 08:10 CT Abd/Pelvis - IV Contrast Only In Process Unspecified. EDMS 08:36 Primary Nurse role handed off by Gracie Mazariegos, RN eb 08:39 Glenna Ferrell, ANGELICA is Primary Nurse. aa5 11:30 No provider procedures requiring assistance completed. IV discontinued, intact, aa5 bleeding controlled, No redness/swelling at site. Pressure dressing applied. Administered Medications: 07:06 Drug: morphine 2 mg Route: IVP; Site: right antecubital; lp1 07:20 Follow up: Response: No adverse reaction aa5 07:07 Drug: NS 0.9% 1000 ml Route: IV; Rate: 1000 ml; Site: right antecubital; lp1 07:07 Drug: Zofran (Ondansetron) 4 mg Route: IVP; Site: right antecubital; lp1 07:20 Follow up: Response: No adverse reaction aa5 08:20 Drug: Potassium Chloride 20 mEq Route: IV; Rate: calculated rate; Site: right aa5 antecubital; 10:00 Follow up: IV Status: Infusion continued; Drip was decreased previously due to aa5 increased burning to arm. 10:55 Follow up: Response: No adverse reaction; IV Status: Completed infusion jl7 09:55 Drug: ProTONIX (pantoprazole) 80 mg Route: IVP; Site: right antecubital; aa5 10:10 Follow up: Response: No adverse reaction aa5 09:55 Drug: GI Cocktail without - (Maalox Suspension 30 ml, Lidocaine Liquid 2 % 15 aa5 ml) Route: PO; 10:10 Follow up: Response: No adverse reaction aa5 10:55 Drug: Potassium Chloride 40 mEq Route: PO; jl7 11:30 Follow up: Response: No adverse reaction aa5 Intake: Outcome: 10:11 Discharge ordered by . kb 11:33 Discharged to home via wheelchair, with significant other. aa5 11:33 Condition: improved 11:33 Discharge instructions given to patient, Instructed on discharge instructions, follow up and referral plans. medication usage, Demonstrated understanding of instructions, follow-up care, medications, Prescriptions given X 2. 11:34 Patient left the ED. aa5 Signatures: Dispatcher [employer] EDAubrie Ballesteros, HERNANDEZ SALESP-Glenna Aguillon, RN RN aa5 Gracie Mazariegos RN RN lp1 Jordan Ott RN RN jl7 Eloise Huang Corrections: (The following items were deleted from the chart) 06:21 06:21 Pulse ox on. NIBP on. lp1 lp1
[2021-05-24] MEDS ORDERED: NA CHLORIDE 0.9% 500 ML ONE (10:24)
[2021-05-24] MEDS ORDERED: POTASSIUM CL SA 10 MEQ TAB PO ONE (11:09)
[2021-05-24 11:46] VITALS: O2SAT 97
[2021-05-24 11:48] VITALS: BP 133/88; TEMP 98
--- NOTE | 2021-05-25 08:02 | EKG ---
Test Date: 2021-05-24 Test Time: 06:55:[address] Justice: HUMBERTO MEASUREMENT RESULTS: Intervals: Rate: 105 OK: 148 QRSD: 98 QT: 406 QTc: 536 [place]: P: 80 OK: 148 QRS: 82 T: 54 INTERPRETIVE STATEMENTS: Sinus tachycardia Nonspecific ST abnormality Abnormal ECG Compared to ECG 02/18/2021 10:29:31 ST (T wave) deviation now present Sinus rhythm no longer present Electronically Signed On 05-25-21 08:00:25 CDT by Mukul Tarango
== END 2021-05-24 11:34 | disposition home or self-care (01) ==
LOC: ER 05:50
DX: E87.6 Hypokalemia (principal); I10 Essential (primary) hypertension; F32.9 Major depressive disorder, single episode, unspecified; F17.210 Nicotine dependence, cigarettes, uncomplicated
CPT/HCPCS: 36415; 70450; 71045; 74177; 80048; 80076; 83690; 83735; 83880; 84484; 85025; 85610; 93005; 96365; 96366; 96375; 99285; C9113; J2270; J2405; J3480; J7030; J7040; Q9967

== ENCOUNTER 2021-07-05 15:46 | Emergency (ER) | payer SELFPAY ==
[2021-07-05 16:24] LABS: Absolute Lymphocytes (CBC) 2.6 K/uL (0.7-4.9); Basophils % 0.2 % (0-1.3); Hematocrit 44.4 % (39.6-49.0); Lymphocytes % 27.3 % (15.3-44.8); MPV 7.9 fL (7.6-11.3); RBC Red Blood Cell Count 5.08 M/uL (4.33-5.43)
[2021-07-05] MEDS ORDERED: ONDANSETRON 4 MG/2 ML VIAL ONE (16:34)
[2021-07-05] MEDS ORDERED: DICYCLOMINE HCL 20 MG/2 ML AMP IM ONE (16:34)
[2021-07-05] MEDS ORDERED: PANTOPRAZOLE 40 MG INJ ONE (16:34)
[2021-07-05] MEDS ORDERED: MAGNES/ALUMIN/SIMET 30ML UCUP ONE (16:34)
[2021-07-05] MEDS ORDERED: LIDOCAINE VISCOUS 2% SOLN 15 ML UDC ONE (16:35)
[2021-07-05] MEDS ORDERED: NA CHLORIDE 0.9% 1,000 ML ONE (16:35)
[2021-07-05 16:43] LABS: ALT/SGPT 52 U/L (12-78); AST/SGOT 76 U/L (15-37); Albumin 3.5 g/dL (3.4-5.0); Alkaline Phosphatase 119 U/L (45-117); BUN Blood Urea Nitrogen 17 mg/dL (7-18); Bicarbonate 26 mmol/L (21-32); Bilirubin Direct 0.2 mg/dL (0-0.2); Bilirubin Total 0.4 mg/dL (0.2-1.0); Glucose Level 101 mg/dL (74-106); Lipase 115 U/L (73-393); Potassium 4.3 mmol/L (3.5-5.1); Protein, Total 6.9 g/dL (6.4-8.2); Sodium Level 140 mmol/L (136-145)
--- NOTE | 2021-07-05 17:17 | ER ---
Nurse's Notes [facility] Name: Ta Quezada Age: 41 yrs Sex: Male : 1980 Arrival Date: 07/05/2021 Time: 15:47 Bed 18 Private MD: Diagnosis: Epigastric pain Presentation: 07/05 15:49 Chief complaint: EMS states: GASTRITIS PAIN. Coronavirus screen: At this time, the bp client does not indicate any symptoms associated with coronavirus-19. Ebola Screen: No symptoms or risks identified at this time. Initial Sepsis Screen: Does the patient meet any 2 criteria? No. Patient's initial sepsis screen is negative. Does the patient have a suspected source of infection? No. Patient's initial sepsis screen is negative. Risk Assessment: Do you want to hurt yourself or someone else? Patient reports no desire to harm self or others. Onset of symptoms was July 05, 2021. Care prior to arrival: IV initiated. 18 GA, in the right antecubital area. 15:49 Method Of Arrival: EMS: [facility] bp 15:49 Acuity: RENE 3 bp Triage Assessment: 16:00 General: Appears distressed, uncomfortable, Behavior is cooperative, appropriate for bp age, agitated, anxious, crying. Pain: Complains of pain in epigastric area. EENT: No deficits noted. Neuro: No deficits noted. Cardiovascular: No deficits noted. Respiratory: No deficits noted. GI: Abdomen is non-distended, Bowel sounds present X 4 quads. : No signs and/or symptoms were reported regarding the genitourinary system. Derm: No deficits noted. Musculoskeletal: No deficits noted. Historical: - Home Meds: 17:00 fluoxetine 10 mg Oral cap once daily [Active]; Prilosec 40 mg Oral cpDR 1 cap once bp daily [Active]; Vitamin D 500 units daily Oral [Active]; - PMHx: 17:00 Depression; GERD; Hypertension; Kidney stones; TIA; bp - PSHx: 17:00 Cholecystectomy; bp - Immunization history:: Adult Immunizations unknown. - Social history:: Smoking status: unknown. Screenin:00 Abuse screen: Denies threats or abuse. Denies injuries from another. Nutritional bp screening: No deficits noted. Tuberculosis screening: No symptoms or risk factors identified. Fall Risk None identified. Assessment: 17:57 Reassessment: Patient appears in no apparent distress at this time. Patient and/or rb3 family updated on plan of care and expected duration. Pain level reassessed. Patient is alert, oriented x 3, equal unlabored respirations, skin warm/dry/pink. Vital Signs: 15:49 Weight 81.65 kg; Height 5 ft. 9 in. (175.26 cm); bp 17:00 BP 137 / 78; Pulse 74; Resp 18; Temp 98; Pulse Ox 100% ; bp 18:00 BP 127 / 79; Pulse 71; Resp 17; Temp 98; Pulse Ox 100% ; bp 15:49 Body Mass Index 26.58 (81.65 kg, 175.26 cm) bp ED Course: 15:47 Patient arrived in ED. am2 15:48 Donte Montenegro, RN is Primary Nurse. bp 15:51 Triage completed. bp 15:54 [facility]C [facility] kb 15:54 Clint Whitehead MD is Attending Physician. kb 16:06 Initial lab(s) drawn, by me, sent to lab. kj1 16:15 Arm band placed on. bp 17:00 Patient has correct armband on for positive identification. Bed in low position. Call bp light in reach. Side rails up X2. 17:57 No provider procedures requiring assistance completed. IV discontinued, intact, rb3 bleeding controlled, No redness/swelling at site. Pressure dressing applied. Administered Medications: 16:15 Drug: NS 0.9% 1000 ml Route: IV; Rate: 1000 ml; Site: right antecubital; bp 18:00 Follow up: IV Status: Completed infusion; IV Intake: 1000ml bp 16:15 Drug: Zofran (Ondansetron) 4 mg Route: IVP; Site: right antecubital; bp 16:33 Follow up: Response: No adverse reaction bp 16:15 Drug: ProTONIX (pantoprazole) 40 mg Route: IVP; Site: right antecubital; bp 16:34 Follow up: Response: No adverse reaction bp 16:15 Drug: Bentyl (dicyclomine) 20 mg Route: IM; Site: right deltoid; bp 16:34 Follow up: Response: No adverse reaction bp 16:15 Drug: GI Cocktail without - (Maalox Suspension 30 ml, Lidocaine Liquid 2 % 15 bp ml) Route: PO; 16:35 Follow up: Response: No adverse reaction bp Intake: 18:00 IV: 1000ml; Total: 1000ml. bp Outcome: 17:17 Discharge ordered by . seema 17:57 Discharged to home via wheelchair. rb3 17:57 Condition: stable 17:57 Discharge instructions given to patient, Instructed on discharge instructions, follow up and referral plans. Demonstrated understanding of instructions, follow-up care, Prescriptions given X none 18:19 Patient left the ED. bp Signatures: Aubrie Flores, EXPORT CLERK-C EXPORT CLERK-Cathie Garcia am2 Donte Montenegro, RN RN bp Grace Flores kj1 Danyell Elena, RN RN rb3 Corrections: (The following items were deleted from the chart) 16:14 16:13 Initial lab(s) drawn, by me, sent to lab. kj1 kj1
--- NOTE | 2021-07-05 17:18 | EDPHYS ---
Physician Documentation [facility] Name: Ta Quezada Age: 41 yrs Sex: Male : 1980 Arrival Date: 07/05/2021 Time: 15:47 Bed 18 Private MD: ED Physician Clint Whitehead HPI: 07/05 16:00 This 41 yrs old Male presents to ER via EMS with complaints of Abdominal Pain.kb 16:00 The patient presents with abdominal pain in the epigastric area. Onset: The kb symptoms/episode began/occurred today. The symptoms do not radiate. Associated signs and symptoms: Pertinent positives: nausea and vomiting. The symptoms are described as constant. Modifying factors: The symptoms are alleviated by nothing, the symptoms are aggravated by pressure. Severity of pain: At its worst the pain was moderate in the emergency department the pain is unchanged. The patient has experienced similar episodes in the past, multiple times. The patient has not recently seen a physician. Pt reports epigastric pain that started today. States he has had this multiple times in the past and origin of pain is unknown. Sees Dr Mcduffie. Historical: - Home Meds: 17:00 fluoxetine 10 mg Oral cap once daily [Active]; Prilosec 40 mg Oral cpDR 1 cap once bp daily [Active]; Vitamin D 500 units daily Oral [Active]; - PMHx: 17:00 Depression; GERD; Hypertension; Kidney stones; TIA; bp - PSHx: 17:00 Cholecystectomy; bp - Immunization history:: Adult Immunizations unknown. - Social history:: Smoking status: unknown. ROS: 15:59 Constitutional: Negative for fever, chills, and weight loss. kb 15:59 Abdomen/GI: Positive for abdominal pain, nausea and vomiting. 15:59 All other systems are negative. Exam: 16:00 Constitutional: This is a well developed, well nourished patient who is awake, alert, kb and in no acute distress. Head/Face: Normocephalic, atraumatic. ENT: Moist Mucous membranes Cardiovascular: Regular rate and rhythm with a normal S1 and S2. No gallops, murmurs, or rubs. No pulse deficits. Respiratory: Respirations even and unlabored. No increased work of breathing, no retractions or nasal flaring. Skin: Warm, dry with normal turgor. Normal color. MS/ Extremity: Pulses equal, no cyanosis. Neurovascular intact. Full, normal range of motion. Neuro: Awake and alert, GCS 15, oriented to person, place, time, and situation. Moves all extremities. Normal gait. Psych: Awake, alert, with orientation to person, place and time. Behavior, mood, and affect are within normal limits. 16:00 Abdomen/GI: Inspection: abdomen appears normal, Bowel sounds: normal, in all quadrants, Palpation: soft, in all quadrants, moderate abdominal tenderness, in the epigastric area. Vital Signs: 15:49 Weight 81.65 kg; Height 5 ft. 9 in. (175.26 cm); bp 17:00 BP 137 / 78; Pulse 74; Resp 18; Temp 98; Pulse Ox 100% ; bp 18:00 BP 127 / 79; Pulse 71; Resp 17; Temp 98; Pulse Ox 100% ; bp 15:49 Body Mass Index 26.58 (81.65 kg, 175.26 cm) bp MDM: 15:54 Patient medically screened. kb 15:59 Data reviewed: vital signs, nurses notes. Data interpreted: Pulse oximetry: on room air kb is 98 %. Interpretation: normal. 16:02 Differential diagnosis: gastritis, gastroesophageal reflux disease, non-specific abd kb pain, pancreatitis. 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 ED course: Pt has been resting comfortably since arrival. Tolerating PO intake. 07/05 15:54 Order name: Basic Metabolic Panel; Complete Time: 16:44 kb 07/05 15:54 Order name: CBC with Diff; Complete Time: 16:51 kb 07/05 15:54 Order name: Hepatic Function; Complete Time: 16:44 kb 07/05 15:54 Order name: Lipase; Complete Time: 16:44 kb 07/05 15:54 Order name: IV Saline Lock; Complete Time: 16:10 kb 07/05 15:54 Order name: Labs collected and sent; Complete Time: 16:11 kb 09/18 16:44 Order name: PO challenge; Complete Time: 17:38 kb Administered Medications: 16:15 Drug: NS 0.9% 1000 ml Route: IV; Rate: 1000 ml; Site: right antecubital; bp 18:00 Follow up: IV Status: Completed infusion; IV Intake: 1000ml bp 16:15 Drug: Zofran (Ondansetron) 4 mg Route: IVP; Site: right antecubital; bp 16:33 Follow up: Response: No adverse reaction bp 16:15 Drug: ProTONIX (pantoprazole) 40 mg Route: IVP; Site: right antecubital; bp 16:34 Follow up: Response: No adverse reaction bp 16:15 Drug: Bentyl (dicyclomine) 20 mg Route: IM; Site: right deltoid; bp 16:34 Follow up: Response: No adverse reaction bp 16:15 Drug: GI Cocktail without - (Maalox Suspension 30 ml, Lidocaine Liquid 2 % 15 bp ml) Route: PO; 16:35 Follow up: Response: No adverse reaction bp Disposition Summary: 07/05/21 17:17 Discharge Ordered Location: Home kb Condition: Stable kb Diagnosis - Epigastric pain kb Followup: kb - With: Emergency Department - When: As needed - Reason: Worsening of condition Followup: kb - With: Private Physician - When: 2 - 3 days - Reason: Recheck today's complaints, Continuance of care, Re-evaluation by your physician Discharge Instructions: - Discharge Summary Sheet kb - Abdominal Pain, Adult, [id number] kb Forms: - Medication Reconciliation Form kb - Thank You Letter kb - Antibiotic Education kb - Prescription Opioid Use kb Addendum: 07/07/2021 10:09 Co-signature as Attending Physician, Clint Whitehead MD I agree with the assessment and k dr plan of care. Signatures: Dispatcher [employer] EDAubrie Ballesteros, AIRCRAFT ENGINE CYLINDER MECHANIC-C AIRCRAFT ENGINE CYLINDER MECHANIC-Clint Jara MD MD kdr Donte Montenegro, RN RN bp
[2021-07-05 19:51] VITALS: BP 137/78; TEMP 98; O2SAT 100
== END 2021-07-05 18:19 | disposition home or self-care (01) ==
LOC: ER 15:46
DX: R10.13 Epigastric pain (principal); I10 Essential (primary) hypertension; F32.9 Major depressive disorder, single episode, unspecified
CPT/HCPCS: 36415; 80048; 80076; 83690; 85025; 96361; 96372; 96374; 96375; 99284; C9113; J0500; J2405; J7030

== ENCOUNTER 2021-08-13 13:20 | Inpatient (IN) | payer OTHER, SELFPAY ==
--- NOTE | 2021-08-13 13:46 | RAD REPORT ---
EXAM DESCRIPTION: CT - Ct Stroke Brain Wo Cont - 08/13/2021 1:40 pm CLINICAL HISTORY: Seizure/AMS Seizures, headache, drowsiness COMPARISON: Head Brain Wo Cont dated 05/24/2021; Head angio dated 07/13/2020 TECHNIQUE: All CT scans are performed using dose optimization technique as appropriate and may inclu de automated exposure control or mA/KV adjustment according to patient size. FINDINGS: No intracranial hemorrhage, hydrocephalus or extra-axial fluid collection.No areas of brai n edema or evidence of midline shift. The paranasal sinuses and mastoids are clear. The calvarium is intact. IMPRESSION: No acute intracranial abnormality.
--- NOTE | 2021-08-13 13:56 | RAD REPORT ---
EXAM DESCRIPTION: CT - Head angio - 08/13/2021 1:43 pm CLINICAL HISTORY: Seizure Headache, drowsiness, seizure COMPARISON: Ct Stroke Brain Wo Cont dated 08/13/2021; Head Brain Wo Cont dated 05/24/2021 TECHNIQUE: CT angiography of the head was performed with MIPs. All CT scans are performed using dose optimization technique as appropriate and may include automated exposure control or mA/KV adjustment according to patient size. FINDINGS: No evidence of aneurysm is detected. No flow-limiting stenosis or vascular malformation id entified. Antegrade flow is seen in the vertebral arteries. The right-sided vertebral artery is dominant. The visualized dural venous sinuses are patent. IMPRESSION: No significant flow abnormality is detected.
[2021-08-13 14:11] LABS: Absolute Lymphocytes (CBC) 2.2 K/uL (0.7-4.9); Basophils % 0.6 % (0-1.3); Hematocrit 41.1 % (39.6-49.0); Lymphocytes % 37.8 % (15.3-44.8); MPV 8.2 fL (7.6-11.3); RBC Red Blood Cell Count 4.67 M/uL (4.33-5.43)
[2021-08-13] MEDS ORDERED: LORazepam 2 MG/ML VIAL ONE ×2 (14:14→14:16)
[2021-08-13] MEDS ORDERED: LEVETIRACETAM 500 MG/5 ML VIAL IV ONE (14:16)
[2021-08-13] MEDS ORDERED: NA CHLORIDE 0.9% 100 ML ONE (14:20)
[2021-08-13 14:22] LABS: Protime INR 0.85
[2021-08-13 14:27] LABS: Urine Blood Trace-intact (Negative); Urine Glucose Negative (Negative); Urine Protein Negative (Negative)
[2021-08-13 14:44] LABS: Urine Bacteria <20 /HPF (NONE SEEN); Urine RBC <5 /HPF (NONE SEEN)
[2021-08-13 14:45] LABS: Calcium Oxalate Crystals- Ur PRESENT (NONE SEEN)
[2021-08-13 14:46] LABS: BUN Blood Urea Nitrogen 9 mg/dL (7-18); Bicarbonate 27 mmol/L (21-32); Glucose Level 95 mg/dL (74-106); Potassium 3.9 mmol/L (3.5-5.1); Sodium Level 142 mmol/L (136-145)
[2021-08-13 15:04] LABS: Barbiturates NEGATIVE (NEGATIVE); Benzodiazepines POSITIVE (NEGATIVE); Cocaine NEGATIVE (NEGATIVE); METHAMPHETAM POSITIVE (NEGATIVE); Methadone NEGATIVE (NEGATIVE); Opiates NEGATIVE (NEGATIVE); Phencyclidine NEGATIVE (NEGATIVE); THC Cannibis POSITIVE (NEGATIVE)
--- NOTE | 2021-08-13 15:04 | RAD REPORT ---
EXAM DESCRIPTION: RAD - Chest Single View - 08/13/2021 2:51 pm CLINICAL HISTORY: new seizure Chest pain. COMPARISON: Chest Single View dated 05/24/2021; Abdomen 1 View (KUB) dated 04/01/2021; Chest Single Vie w dated 11/04/2020; Chest Single View dated 07/13/2020 FINDINGS: Portable technique limits examination quality. Bilateral [id number] interstitial lung opacity may represent viral infection or pulmonary edema . The heart is mildly prominent in size. No displaced fractures.
--- NOTE | 2021-08-13 15:55 | ER ---
Nurse's Notes 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 13:30 Coronavirus screen: At this time, the client does not indicate any symptoms associated iw with coronavirus-19. Ebola Screen: Patient negative for fever greater than or equal to 101.5 degrees Fahrenheit, and additional compatible Ebola Virus Disease symptoms Patient denies exposure to infectious person. Patient denies travel to an Ebola-affected area in the 21 days before illness onset. No symptoms or risks identified at this time. Onset of symptoms was August 13, 2021. 13:30 Method Of Arrival: EMS: [facility] iw 13:30 Acuity: RENE 2 iw 13:59 Initial Sepsis Screen: Does the patient meet any 2 criteria? No. Patient's initial iw sepsis screen is negative. Does the patient have a suspected source of infection? No. Patient's initial sepsis screen is negative. Risk Assessment: Do you want to hurt yourself or someone else? Unable to obtain. Triage Assessment: 08/14 07:17 General: Appears. jw6 08:36 General: Behavior is calm. Pain: Unable to use pain scale. Patient is disoriented. Does jw6 not appear to understand pain scale. Neuro: Level of Consciousness is stuporous. Historical: - Allergies: 08/13 14:00 No Known Allergies; iw - Home Meds: 13:59 fluoxetine 10 mg Oral cap once daily [Active]; Prilosec 40 mg Oral cpDR 1 cap once iw daily [Active]; Vitamin D 500 units daily Oral [Active]; - PMHx: 13:59 Depression; GERD; Hypertension; Kidney stones; TIA; iw - PSHx: 13:59 Cholecystectomy; iw - Immunization history:: Adult Immunizations unknown, . - Family history:: unknown. - Social history:: Smoking status: Patient reports the use of cigarette tobacco products, unknown amount Patient uses street drugs, marijuana, Methamphetamine (Meth). - Hospitalizations: : No recent hospitalization is reported. - History obtained from: Family. Screenin:28 Abuse screen: Denies threats or abuse. Denies injuries from another. Nutritional vg1 screening: No deficits noted. Tuberculosis screening: No symptoms or risk factors identified. Fall Risk None identified. Assessment: : Reassessment: Straight cath performed, pt opened eyes and retracted legs when vg1 performing. lowered legs when asked. when questioned if he knew where he was Pt did not answer.. 17:44 Reassessment: Pt talking to at bedside. 5 Vital Signs: 14:00 BP 124 / 69; Pulse 57; Resp 18 S; Pulse Ox 100% on Non-rebreather mask; iw 15:43 BP 118 / 60; Pulse 54; Resp 16; Pulse Ox 100% on Non-rebreather mask; ch5 17:00 BP 121 / 77; Pulse 58; Resp 16; Pulse Ox 100% on Non-rebreather mask; ch5 17:55 BP 124 / 85; Pulse 64; Resp 18; Pulse Ox 100% on R/A; ch5 08/15 08:08 BP 101 / 61; Pulse 61; Resp 15; Temp 98.3; Pulse Ox 97% ; mp1 09:05 BP 96 / 68; Pulse 74; Resp 15; Temp 98.1; Pulse Ox 95% ; mp1 10:07 BP 100 / 72; Pulse 60; Resp 16; Temp 98.3; Pulse Ox 99% ; mp1 [place] Coma Score: 08/14 08:36 Eye Response: to pain(2). Verbal Response: incomprehensible(2). Motor Response: jw6 withdraws from pain(4). Modifying Factors: Medicated. Total: 8. 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 rn 13:20 Rashawn Ferrara MD is Attending Physician. rn 13:44 Patient has correct armband on for positive identification. Bed in low position. Call mh5 light in reach. Side rails up X2. cardiac monitor on. Pulse ox on. NIBP on. 13:59 Triage completed. iw 14:02 Jose Zendejas RN is Primary Nurse. [facility] 15:55 Shawn Pavon DO is Hospitalizing Provider. rn 16:58 SARS-COV-2 RT PCR (Document "Date of Onset" if Symptomatic) Sent. ch5 22:37 Carotid Artery Bilateral In Process Unspecified. EDMS 08/14 07:44 Magnesium Sent. jw6 07:44 Magnesium Sent. jw6 07:44 T4 Free Sent. jw6 08:02 Thyroid Stimulating Hormone Sent. jw6 08:02 EEG Request Sent. jw6 08:02 Magnesium Sent. jw6 08:02 Stroke Protocol Sent. jw6 08:02 Echo with Doppler Sent. jw6 08:02 CT Stroke Brain w/o Contrast Sent. jw6 08:02 XRAY Chest (1 view) Sent. jw6 08:02 CT Head Angio Sent. jw6 08:02 CT Head Brain wo Cont Sent. jw6 08:36 No provider procedures requiring assistance completed. IV is patent, with fluids jw6 infusing freely, with good blood return. 08:37 Arm band placed on right wrist. jw6 08:37 Seizure precautions initiated. jw6 Administered Medications: 08/13 13:50 Drug: Ativan (LORazepam) 1 mg Route: IVP; Site: left hand; ld1 13:50 Follow up: Response: No adverse reaction ld1 14:02 Drug: Ativan (LORazepam) 1 mg Route: IVP; Site: left hand; [facility] 08/14 07:19 Follow up: Response: No adverse reaction jw6 Outcome: 08/13 15:55 Decision to Hospitalize by Provider. rn 08/15 17:30 Patient left the ED. NIH Stroke Scale - NIH Stroke Score Date: 08/13/2021 Time: 13:34 Total Score = 8 1a. Level of Consciousness (LOC) - 1(Not Alert) 1b. Level of Consciousness (LOC) (Month \\T\\ Age) - 1(One) 1c. LOC Commands (Open \\T\\ Closes Eyes/Continuous Conveyor Screen Drier) - 0(Both) 2. Best Gaze (Lateral Gaze Paresis) - 0(Normal) 3. Visual Field Loss - 0(No visual loss) 4. Facial Palsy - 0(Normal) 5a. Left Arm: Motor (10-second hold) - 0(No drift) 5b. Right Arm: Motor (10-second hold) - 3(No effort against gravity) 6a. Left Leg: Motor (5-second hold - always test supine) - 0(No drift) 6b. Right Leg: Motor (5-second hold - always test supine) - 3(No effort against gravity) 7. Limb Ataxia (finger/nose \\T\\ heel/holm - test with eyes open) - 0(Absent) 8. Sensory Loss (pinprick arms/legs/face) - 0(Normal) 9. Best Language: Aphasia (description/naming/reading) - 0(No aphasia) 10. Dysarthria (speech clarity - read or repeat words) - 0(Normal) 11. 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
--- NOTE | 2021-08-13 15:55 | EDPHYS ---
Physician Documentation [facility] Name: Ta Quezada Age: 41 yrs Sex: Male : 1980 Arrival Date: 08/13/2021 Time: 13:20 Bed 30 Private MD: ED Physician Rashawn Ferrara HPI: 08/13 15:50 This 41 yrs old Male presents to ER via EMS with complaints of Seizure. rn 15:50 The patient presents after having a single isolated seizure, that lasted 5 minute(s). rn Character of seizure(s): Loss of consciousness: the patient experienced loss of consciousness, Motor activity: generalized, Incontinence: none, Circulation: the patient did not experience evidence of pulse disturbance. Seizure onset: just prior to arrival. Seizure Hx: the patient has no previous seizure history. Associated injury: The patient did not suffer any apparent associated injury. Current symptoms: confusion, decreased level of consciousness. The patient has not experienced similar symptoms in the past. The patient has been recently seen by a physician:. Patient was getting outpatient ultrasound done, was getting prepped and had seizure-like activity. Generalized and lasted approximately 5 minutes. EMS witnessed seizure and gave Versed IV which seemed to stop seizure activity. Patient comes in sedated and altered.. Historical: - Allergies: 14:00 No Known Allergies; iw - Home Meds: 13:59 fluoxetine 10 mg Oral cap once daily [Active]; Prilosec 40 mg Oral cpDR 1 cap once iw daily [Active]; Vitamin D 500 units daily Oral [Active]; - PMHx: 13:59 Depression; GERD; Hypertension; Kidney stones; TIA; iw - PSHx: 13:59 Cholecystectomy; iw - Immunization history:: Adult Immunizations unknown, . - Family history:: unknown. - Social history:: Smoking status: Patient reports the use of cigarette tobacco products, unknown amount Patient uses street drugs, marijuana, Methamphetamine (Meth). - Hospitalizations: : No recent hospitalization is reported. - History obtained from: Family. ROS: 15:50 Unable to obtain ROS due to altered mental status. rn Exam: 13:24 Constitutional: Patient well developed and well nourished, sedated with Versed prior rn to arrival, awakens to tactile stimulation but very groggy Head/Face: Normocephalic, atraumatic. Eyes: Pupils equal round and reactive to light, extra-ocular motions intact. ENT: Dry mucous membranes, no tongue laceration Cardiovascular: Regular rate and rhythm. No pulse deficits. Respiratory: No increased work of breathing, no retractions or nasal flaring. Abdomen/GI: Soft, nontender Skin: Warm, dry MS/ Extremity: Pulses equal, no cyanosis. Neuro: Somnolent, oriented to person not place or time. Sedated after Versed by EMS. Able to move left hand and left foot but unable to lift them off the bed. Unable to move right hand or right foot. 14:53 ECG was reviewed by the Attending Physician. rn Vital Signs: 14:00 BP 124 / 69; Pulse 57; Resp 18 S; Pulse Ox 100% on Non-rebreather mask; iw 15:43 BP 118 / 60; Pulse 54; Resp 16; Pulse Ox 100% on Non-rebreather mask; ch5 17:00 BP 121 / 77; Pulse 58; Resp 16; Pulse Ox 100% on Non-rebreather mask; ch5 17:55 BP 124 / 85; Pulse 64; Resp 18; Pulse Ox 100% on R/A; ch5 08/15 08:08 BP 101 / 61; Pulse 61; Resp 15; Temp 98.3; Pulse Ox 97% ; mp1 09:05 BP 96 / 68; Pulse 74; Resp 15; Temp 98.1; Pulse Ox 95% ; mp1 10:07 BP 100 / 72; Pulse 60; Resp 16; Temp 98.3; Pulse Ox 99% ; mp1 NIH Stroke Scale Scores: 08/13 13:34 NIHSS Score: 8 rn Wilson Coma Score: 08/14 08:36 Eye Response: to pain(2). Verbal Response: incomprehensible(2). Motor Response: jw6 withdraws from pain(4). Modifying Factors: Medicated. Total: 8. MDM: 08/13 13:20 Patient medically screened. rn 13:34 ED course: Patient has NIH stroke scale of 8 but patient heavily sedated with Versed. rn Patient is young but in history has a history of TIA reported. Patient is nowhere near being awake enough to give any more information. Patient is postictal and given IV Versed by EMS severely limiting our evaluation. Seizure at onset would likely be contraindication to TPA anyway if CVA.. 13:51 ED course: Patient had another seizure when coming back from CAT scan lasted rn approximately 30 seconds given 2 mg of Ativan and no longer seizing. Patient sonorous. Will load with 1 g of Keppra. Nothing obvious on the CT head.. 13:51 ED course: CT stroke protocol negative for acute findings.. rn 13:57 ED course: CT angio without large vessel occlusion.. rn 14:01 ED course: Consulted with Dr. Earl, who agrees most likely Haile paralysis secondary rn to seizure. States given 2 seizures at onset and negative CT head angio would not TPA patient. Patient somnolent but protecting airway following 2 mg of Ativan after second seizure. Getting Keppra load 1 g. Eventually anticipate admission to hospitalist service with Keppra 500 mg twice daily and neurology consultation.. 15:54 Differential diagnosis: drug overdose, cardiac arrhythmia, seizure, TIA. Data reviewed: rn vital signs, nurses notes, lab test result(s), EKG, radiologic studies, CT scan, plain films, and as a result, I will admit patient. Data interpreted: cardiac monitor: rate is 57 beats/min, rhythm is sinus bradycardia, with no ectopy, Interpretation: bradycardia, Pulse oximetry: on room air is 100 %. Interpretation: normal. Counseling: I had a detailed discussion with the patient and/or guardian regarding: the historical points, exam findings, and any diagnostic results supporting the discharge/admit diagnosis, lab results, radiology results, the need for further work-up and treatment in the hospital. Response to treatment: the patient's symptoms have mildly improved after treatment, and as a result, I will admit patient. Admission orders: after a detailed discussion of the patient's condition and case, the admit orders are written by me. ED course: No further seizures while in ER. Still sedated from Versed and subsequent Ativan after second seizure. Will admit to hospitalist service.. 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 Will admit to ICU.. 08/13 14:15 Order name: CBC with Automated Diff; Complete Time: 15:28 EDMS 08/13 14:23 Order name: Protime (+INR); Complete Time: 15:28 EDMS 08/13 14:23 Order name: PTT, Activated Partial Thromb; Complete Time: 15:28 EDMS 08/13 14:27 Order name: Urine Dipstick-Ancillary; Complete Time: 15:28 [facility] 08/13 14:44 Order name: Alcohol Serum/Plasma; Complete Time: 15:28 [facility] 08/13 14:45 Order name: Urine Microscopic Only; Complete Time: 15:28 [facility] 08/13 14:47 Order name: Basic Metabolic Panel; Complete Time: 15:28 [facility] 08/13 15:01 Order name: CREATININE WHOLE BLOOD; Complete Time: 15:28 [facility] 08/13 15:04 Order name: Urine Drug Screen; Complete Time: 15:28 [facility] 08/13 15:53 Order name: SARS-COV-2 RT PCR (Document "Date of Onset" if Symptomatic) 08/13 18:06 Order name: SARS-COV-2 RT PCR [facility] 08/13 21:44 Order name: Blood Culture [facility] 08/13 21:45 Order name: Magnesium [facility] 08/13 21:45 Order name: Magnesium [facility] 08/13 21:45 Order name: Magnesium [facility] 08/13 21:45 Order name: Magnesium [facility] 08/13 21:45 Order name: T4 Free [facility] 08/13 21:45 Order name: T4 Free [facility] 08/13 21:45 Order name: Thyroid Stimulating Hormone [facility] 08/13 21:45 Order name: Thyroid Stimulating Hormone [facility] 08/14 05:37 Order name: CBC with Automated Diff [facility] 08/13 13:22 Order name: CT Head Brain wo Cont rn 08/13 13:22 Order name: IV Start; Complete Time: 13:43 08/13 13:22 Order name: Urine Dipstick-Ancillary (obtain specimen); Complete Time: 14:24 rn 08/13 13:22 Order name: Glucose Level; Complete Time: 13:43 rn 08/13 13:22 Order name: EKG; Complete Time: 16:42 rn 08/13 13:22 Order name: EKG - Nurse/Tech; Complete Time: 14:08 rn 08/13 13:22 Order name: XRAY Chest (1 view) rn 08/13 13:22 Order name: CT Head Angio rn 08/13 13:26 Order name: CT Stroke Brain w/o Contrast rn 08/13 13:47 Order name: CT; Complete Time: 13:58 EDLA 08/13 13:56 Order name: CT; Complete Time: 13:58 EDMS 08/13 15:05 Order name: RAD; Complete Time: 15:28 EDMS 08/13 21:44 Order name: CONS Physician Consult; Complete Time: 08:02 EDMS 08/13 21:44 Order name: NPO; Complete Time: 08:02 EDMS 08/13 21:44 Order name: Echo with Doppler EDMS 08/13 21:44 Order name: Stroke Protocol EDMS 08/13 21:45 Order name: Respiratory Therapy Consult; Complete Time: 08:02 EDMS 08/13 21:45 Order name: EEG Request EDMS 08/13 21:45 Order name: Carotid Artery Bilateral EDMS 08/14 05:49 Order name: Comprehensive Metabolic Panel EDMS 08/15 04:17 Order name: CBC with Automated Diff EDMS 08/15 04:28 Order name: Comprehensive Metabolic Panel EDMS 08/15 08:27 Order name: MRI EDMS 08/15 12:40 Order name: MRI EDLA EC:53 Rate is 53 beats/min. Rhythm is regular. QRS [place] is Normal. MD interval is normal. QRS rn interval is normal. QT interval is normal. No Q waves. T waves are Normal. No ST changes noted. Clinical impression: Sinus bradycardia. Interpreted by me. Reviewed by me. Administered Medications: 13:50 Drug: Ativan (LORazepam) 1 mg Route: IVP; Site: left hand; ld1 13:50 Follow up: Response: No adverse reaction ld1 14:02 Drug: Ativan (LORazepam) 1 mg Route: IVP; Site: left hand; [facility] 08/14 07:19 Follow up: Response: No adverse reaction jw6 Disposition Summary: 08/13/21 15:55 Hospitalization Ordered Hospitalization Status: Inpatient Admission rn Provider: Shawn Pavon rn Condition: Stable rn Problem: new rn Symptoms: have improved rn Bed/Room Type: Standard rn Location: Telemetry/MedSurg (Inpatient)(08/15/21 15:47) eb Room Assignment: [facility](08/15/21 15:47) eb Diagnosis - Epileptic seizures related to external causes, not intractable, without status rn epilepticus - Altered mental status, unspecified rn - Weakness rn Forms: - Medication Reconciliation Form rn - SBAR form 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 Total time: 35 rn minutes NIH Stroke Scale - NIH Stroke Score Date: 08/13/2021 Time: 13:34 Total Score = 8 1a. Level of Consciousness (LOC) - 1(Not Alert) 1b. Level of Consciousness (LOC) (Month \\T\\ Age) - 1(One) 1c. LOC Commands (Open \\T\\ Closes Eyes/Horse Riding Coach Or Instructor) - 0(Both) 2. Best Gaze (Lateral Gaze Paresis) - 0(Normal) 3. Visual Field Loss - 0(No visual loss) 4. Facial Palsy - 0(Normal) 5a. Left Arm: Motor (10-second hold) - 0(No drift) 5b. Right Arm: Motor (10-second hold) - 3(No effort against gravity) 6a. Left Leg: Motor (5-second hold - always test supine) - 0(No drift) 6b. Right Leg: Motor (5-second hold - always test supine) - 3(No effort against gravity) 7. Limb Ataxia (finger/nose \\T\\ heel/holm - test with eyes open) - 0(Absent) 8. Sensory Loss (pinprick arms/legs/face) - 0(Normal) 9. Best Language: Aphasia (description/naming/reading) - 0(No aphasia) 10. Dysarthria (speech clarity - read or repeat words) - 0(Normal) 11. Extinction and Inattention (visual/tactile/auditory/spatial/personal) - 0(No abnormality) Initials: rn Signatures: Dispatcher [employer] EDGiselle Bryan RN Rashawn Hinojosa MD MD rn Botello, Elizabeth eb Basinger, Emily, RN RN eb1 Tiffany Fowler RN ANGELICA [email or web address] Candi Pulido RN RN ld1 Jose Zendejas, RN RN ch5 Germania Briscoe6 Corrections: (The following items were deleted from the chart) 13:53 13:51 ED course: Patient had another seizure when coming back from CAT scan rn lasted approximately 30 seconds given 1 mg of Ativan and no longer seizing. Patient sonorous. Will load with 1 g of Keppra. Nothing obvious on the CT head.. rn 19:14 15:55 Intensive Care Unit rn eb1 19:14 15:55 rn eb1 19:15 19:14 eb1 eb1 21:50 16:42 CBC+H.LAB.BRZ ordered. EDMS EDMS 21:50 16:42 BASIC METABOLIC PANEL+C.LAB.BRZ ordered. EDMS EDMS 21:50 16:42 PROTIME (+INR)+COAG.LAB.BRZ ordered. EDMS EDMS 21:50 16:42 PTT, ACTIVATED+COAG.LAB.BRZ ordered. EDMS EDMS 21:50 16:42 UA MICROSCOPIC+U.LAB.BRZ ordered. EDMS EDMS 21:50 16:42 URINE DRUG SCREEN+CHEM UR.LAB.BRZ ordered. EDMS EDMS 21:50 16:42 ETHANOL+C.LAB.BRZ ordered. EDMS EDMS 21:50 16:42 TROPONIN (EMERG DEPT USE ONLY)+C.LAB.BRZ ordered. EDMS EDMS 21:50 18:19 COVID-19/FLU A+B ordered. EDMS EDMS 08/15 15:47 08/13 19:14 [facility] ER HOLD eb1 eb 08/15 15:47 08/13 19:15 ERHOLD- eb1 eb
--- NOTE | 2021-08-13 16:53 | P.HP ---
Certification for Inpatient Patient admitted to: Inpatient With expected LOS: >2 Midnights Patient will require the following post-hospital care: None Practitioner: I am a practitioner with admitting privileges, knowledge of patient current condition, hospital course, and medical plan of care. Services: Services provided to patient in accordance with Admission requirements found in Title 42 Section 412.3 of the Code of Federal Regulations Patient History Date of Service: 08/13/21 Primary Care Provider: Dr. Hollingsworth; GI-Dr. Mcduffie Reason for admission: Seizure activity History of Present Illness: 41-year-old male with history of depression, neuropathy, and GERD with Juarez's esophagus. Patient was at his PCPs office to evaluate lower extremity venous insufficiency. Patient was to have Doppler study. Patient apparently had seizure activity. EMS was called. EMS provided medication for seizure with the patient. The patient was stabilized and sent to the ER. In the ER patient had another seizure with weakness to the extremity. Patient remains postictal. In the ER patient was evaluated. White count 5.8, hemoglobin 13.9. Platelet count 259. Sodium 142, potassium 3.9. BUN of 9, creatinine 0.85 with a GFR greater than 90. Glucose 95. Urinalysis negative. Chest x-ray unremarkable. Urine drug screen was positive for amphetamines, benzodiazepines and THC. Patient has been stabilized. Keppra has been started. Patient admitted to ICU for further monitoring and evaluation. Allergies No Known Allergies Allergy (Unverified 12/21/16 20:12) Home medications list reviewed: Yes Home Medications: Ergocalciferol (Vitamin D2) [Vitamin D 50,000 Unit Cap] 1 tab PO DAILY 11/04/20 Fluoxetine HCl [Prozac*] 1 tab PO DAILY 11/04/20 Omeprazole [Prilosec] 40 mg PO BID #60 capsule. 02/21/21 Aspirin 1 tab PO DAILY 03/31/21 Promethazine Tab [Phenergan] 25 mg PO Q12HP PRN #30 tab 04/02/21 - Past Medical/Surgical History Diabetic: No -: Depression -: Neuropathy -: GERD -: Juarez's esophagus -: Tobacco abuse -: Cholecystectomy Psychosocial/ Personal History: Patient is . Lives at home. - Family History Family History: Reviewed- Non-Contributory - Family History Mother -: Diabetes, Cancer - Social History Smoking Status: Current every day smoker Alcohol use: No CD- Drugs: No Caffeine use: Yes Place of Residence: Home Review of Systems is unable to be obtained Physical Examination - Studies Laboratory Data (last 24 hrs) 08/13/21 13:49: PT 9.8, INR 0.85, APTT 29.1 08/13/21 13:49: Sodium 142, Potassium 3.9, BUN 9, Creatinine 0.85, Glucose 95 08/13/21 13:49: WBC 5.80, Hgb 13.9, Hct 41.1, Plt Count 259 Assessment and Plan - Plan COVID: Pending CT Head: COMPARISON: Head Brain Wo Cont dated 05/24/2021; Head angio dated 07/13/2020 TECHNIQUE: All CT scans are performed using dose optimization technique as appropriate and may include automated exposure control or mA/KV adjustment according to patient size. FINDINGS: No intracranial hemorrhage, hydrocephalus or extra-axial fluid collection.No areas of brain edema or evidence of midline shift. The paranasal sinuses and mastoids are clear. The calvarium is intact. IMPRESSION: No acute intracranial abnormality. CTA Head: COMPARISON: Ct Stroke Brain Wo Cont dated 08/13/2021; Head Brain Wo Cont dated 05/24/2021 TECHNIQUE: CT angiography of the head was performed with MIPs. All CT scans are performed using dose optimization technique as appropriate and may include automated exposure control or mA/KV adjustment according to patient size. FINDINGS: No evidence of aneurysm is detected. No flow-limiting stenosis or vascular malformation identified. Antegrade flow is seen in the vertebral arteries. The right-sided vertebral artery is dominant. The visualized dural venous sinuses are patent. IMPRESSION: No significant flow abnormality is detected. CXR: COMPARISON: Chest Single View dated 05/24/2021; Abdomen 1 View (KUB) dated 04/01/2021; Chest Single View dated 11/04/2020; Chest Single View dated 07/13/2020 FINDINGS: Portable technique limits examination quality. Bilateral [id number] interstitial lung opacity may represent viral infection or pulmonary edema. The heart is mildly prominent in size. No displaced fractures. Physical Exam: GENERAL: Patient sedated. Responds to pain noted VITAL SIGNS: Reviewed HEENT: Head is normocephalic and atraumatic. Nares appeared normal. Mouth is well hydrated and without lesions. Mucous membranes are moist. NECK: Supple. No carotid bruits. No lymphadenopathy or thyromegaly. LUNGS: Clear to auscultation. No crackles or wheezes are heard. HEART: Regular rate and rhythm, no appreciable gallops, rubs, murmurs or extra heart sounds ABDOMEN: Soft, nondistended. Positive bowel sounds. No hepatosplenomegaly was noted. EXTREMITIES: Without any cyanosis, clubbing, rash, lesions or peripheral edema. NEUROLOGIC: Patient with increased sedation. SKIN: Normal color, turgor and temperature. No ulcerations or rashes noted. Impression: Acute seizure Urine drug screen positive for THC and amphetamines GERD with history of Juarez's esophagus Neuropathy Depression Plan: Acute seizure: Patient admitted for further evaluation and treatment. We will continue with Keppra IV 500 twice daily. Will provide Ativan as needed. Patient to remain in ICU. Seizure precaution in place. Aspiration precaution also in place. We will continue to monitor closely. Wean off oxygen. Case discussed with ER physician who discussed case with neurology. Neurology consulted to further evaluate. Neurology recommends EEG, MRI to further evaluate. Continue with antiseizure medication. Seizure may be related to positive drug use. Await further recommendations from neurology. Patient remains n.p.o. until the patient is more alert than swallowing can be further evaluated by nursing. We will continue to assess and monitor. We will need to further investigate his drug use once the patient is more alert. Anticipate continued improvement over the next 72 hours. Urine drug screen positive for THC and amphetamines: Spoke with at length. reports patient does use THC. She is unsure whether or not he is taking amphetamines. GERD with history of Juarez's esophagus: Patient has seen GI. Patient with prior EGD showing Juarez's esophagus. Continue with PPI. Aspiration precaution in place. Neuropathy: Hold Neurontin. Depression: Hold fluoxetine until patient is able to take oral intake. Code Status: Full Code DVT prophylaxis: Lovenox Advanced Care Planning-30 minutes: Home at discharge Discharge Plan: Home Plan to discharge in: Greater than 2 days - Advance Directives Does patient have a Living Will: No Does patient have a Durable POA for Healthcare: Yes - Code Status/Comfort Care Code Status Assessed: Yes (Patient is full code) Time Spent Managing Pts Care (In Minutes): 55
[2021-08-13] MEDS ORDERED: ACETAMINOPHEN 650MG/RECT SUPP PR PRN (21:43)
[2021-08-13] MEDS: D5 0.9 NS 1,000 ML IV SCH (21:43)
[2021-08-13] MEDS ORDERED: ONDANSETRON 4 MG/2 ML VIAL IV PRN (21:43)
[2021-08-13] MEDS ORDERED: SODIUM CHLORIDE 0.9% 10ML INJ IV PRN (21:43)
[2021-08-13] MEDS: levETIRAcetam 500 MG in NA CHLORIDE 0.9% 100 ML IV SCH (21:43)
[2021-08-14 00:49] VITALS: BMI 28.8
[2021-08-14] MEDS: LORazepam 2 MG/ML VIAL IV PRN ×4 (04:07→21:42)
[2021-08-14] MEDS ORDERED: LORazepam 2 MG/ML VIAL ONE ×4 (04:18→21:32)
[2021-08-14 05:22] LABS: Absolute Lymphocytes (CBC) 2.9 K/uL (0.7-4.9); Basophils % 0.7 % (0-1.3); Hematocrit 42.9 % (39.6-49.0); Lymphocytes % 31.2 % (15.3-44.8); MPV 8.3 fL (7.6-11.3); RBC Red Blood Cell Count 4.88 M/uL (4.33-5.43)
[2021-08-14 05:47] LABS: ALT/SGPT 33 U/L (12-78); Albumin 3.2 g/dL (3.4-5.0); Alkaline Phosphatase 105 U/L (45-117); BUN Blood Urea Nitrogen 10 mg/dL (7-18); Bicarbonate 26 mmol/L (21-32); Bilirubin Total 0.5 mg/dL (0.2-1.0); Glucose Level 88 mg/dL (74-106); Protein, Total 6.7 g/dL (6.4-8.2); Sodium Level 140 mmol/L (136-145)
[2021-08-14 05:48] LABS: AST/SGOT 24 U/L (15-37); Magnesium 2.3 mg/dL (1.8-2.4)
--- NOTE | 2021-08-14 06:19 | P.PN ---
Subjective Date of Service: 08/14/21 Primary Care Provider: Dr. Hollingsworth; GI-Dr. Mcduffie Chief Complaint: Seizure activity Subjective: Other (Patient more alert. Some agitation this morning. Nurses report patient required Ativan. Nurses report patient admitted to using multiple drugs.) Physical Examination - Vital Signs Temperature: 97.1 F Blood Pressure: 120/77 Pulse: 61 Respirations: 13 Pulse Ox (%): 92 - Studies Laboratory Data (last 24 hrs) 08/13/21 13:49: PT 9.8, INR 0.85, APTT 29.1 08/13/21 13:49: Sodium 142, Potassium 3.9, BUN 9, Creatinine 0.85, Glucose 95 08/13/21 13:49: WBC 5.80, Hgb 13.9, Hct 41.1, Plt Count 259 08/13/21 13:22: PT Cancelled, INR Cancelled, APTT Cancelled 08/13/21 13:22: Sodium Cancelled, Potassium Cancelled, BUN Cancelled, Creatinine Cancelled, Glucose Cancelled 08/13/21 13:22: WBC Cancelled, Hgb Cancelled, Hct Cancelled, Plt Count Cancelled Assessment & Plan Discharge Plan: Home Plan to discharge in: 24 Hours Physician Review Additional Text: COVID: negative CT Head: COMPARISON: Head Brain Wo Cont dated 05/24/2021; Head angio dated 07/13/2020 TECHNIQUE: All CT scans are performed using dose optimization technique as appropriate and may include automated exposure control or mA/KV adjustment according to patient size. FINDINGS: No intracranial hemorrhage, hydrocephalus or extra-axial fluid collection.No areas of brain edema or evidence of midline shift. The paranasal sinuses and mastoids are clear. The calvarium is intact. IMPRESSION: No acute intracranial abnormality. CTA Head: COMPARISON: Ct Stroke Brain Wo Cont dated 08/13/2021; Head Brain Wo Cont dated 05/24/2021 TECHNIQUE: CT angiography of the head was performed with MIPs. All CT scans are performed using dose optimization technique as appropriate and may include automated exposure control or mA/KV adjustment according to patient size. FINDINGS: No evidence of aneurysm is detected. No flow-limiting stenosis or vascular malformation identified. Antegrade flow is seen in the vertebral arteries. The right-sided vertebral artery is dominant. The visualized dural venous sinuses are patent. IMPRESSION: No significant flow abnormality is detected. CXR: COMPARISON: Chest Single View dated 05/24/2021; Abdomen 1 View (KUB) dated 04/01/2021; Chest Single View dated 11/04/2020; Chest Single View dated 07/13/2020 FINDINGS: Portable technique limits examination quality. Bilateral wuxi-vv-zacepanl interstitial lung opacity may represent viral infection or pulmonary edema. The heart is mildly prominent in size. No displaced fractures. Carotid doppler: COMPARISON: No comparisons TECHNIQUE: Real-time sonographic evaluation of bilateral carotid and vertebral systems was performed. Russo scale and Doppler interrogation were performed with waveform tracing bilaterally. FINDINGS: Normal high resistance waveforms are noted in both external carotid arteries. The common carotid arteries and internal carotid arteries show normal low resistance waveforms. No significant plaque formation is seen. Very minimal plaquing present shows no significant luminal narrowing. Peak systolic and end diastolic velocity values and the ICA/CCA ratios are in the non-hemodynamically significant range. Antegrade flow seen in both vertebral arteries. Velocity values and ratios were recorded and are retained in the patient's imaging records. IMPRESSION: No significant atherosclerotic changes noted. No evidence of a hemodynamically significant stenosis. Physical Exam: GENERAL: Patient with slight agitation this morning. Patient responds to pain. VITAL SIGNS: Reviewed HEENT: Head is normocephalic and atraumatic. Nares appeared normal. Mouth is well hydrated and without lesions. Mucous membranes are moist. NECK: Supple. No carotid bruits. No lymphadenopathy or thyromegaly. LUNGS: Clear to auscultation. No crackles or wheezes are heard. HEART: Regular rate and rhythm, no appreciable gallops, rubs, murmurs or extra heart sounds ABDOMEN: Soft, nondistended. Positive bowel sounds. No hepatosplenomegaly was noted. EXTREMITIES: Without any cyanosis, clubbing, rash, lesions or peripheral edema. NEUROLOGIC: Less sedation noted. Some agitation this morning. SKIN: Normal color, turgor and temperature. No ulcerations or rashes noted. Impression: Acute seizure Urine drug screen positive for THC and amphetamines GERD with history of Juarez's esophagus Neuropathy Depression Plan: Acute seizure: Patient had some agitation this morning. Continue with Ativan as needed. Nurses report patient admitted to multiple drug use. Patient remains on IV Keppra. MRI brain and EEG pending this morning. Seizure may be related to recent drug use. Will discuss with neurology about plan of care. Once the patient is more alert swallow evaluation can be done. If he passes will provide oral intake. Physical therapy to assess ambulation. Continue to monitor closely. Anticipate improvement over the next 24 to 48 hours. Urine drug screen positive for THC and amphetamines: Spoke with at length. reports patient does use THC. She is unsure whether or not he is taking amphetamines. Nurses report patient admitted to multiple drug use. GERD with history of Juarez's esophagus: Patient has seen GI. Patient with prior EGD showing Juarez's esophagus. Continue with PPI. Aspiration precaution in place. Neuropathy: Hold Neurontin until able to take oral intake. Depression: Hold fluoxetine until patient is able to take oral intake. Code Status: Full Code DVT prophylaxis: Lovenox Advanced Care Planning-30 minutes: Home at discharge Time Spent Managing Pts Care (In Minutes): 55
[2021-08-14] MEDS ORDERED: D5W 1,000 ML IV ONE (06:43)
--- NOTE | 2021-08-14 07:16 | RAD REPORT ---
EXAM DESCRIPTION: - CP - 08/13/2021 10:37 pm CLINICAL HISTORY: seizure Preliminary findings provided at the time of the study. COMPARISON: No comparisons TECHNIQUE: Real-time sonographic evaluation of bilateral carotid and vertebral systems was performed . Russo scale and Doppler interrogation were performed with waveform tracing bilaterally. FINDINGS: Normal high resistance waveforms are noted in both external carotid arteries. The common c arotid arteries and internal carotid arteries show normal low resistance waveforms. No significant plaque formation is seen. Very minimal plaquing present shows no significant luminal n arrowing. Peak systolic and end diastolic velocity values and the ICA/CCA ratios are in the non-hemod ynamically significant range. Antegrade flow seen in both vertebral arteries. Velocity values and ratios were recorded and are retained in the patient's imaging records. IMPRESSION: No significant atherosclerotic changes noted. No evidence of a hemodynamically significant stenosis.
[2021-08-14] MEDS: PANTOPRAZOLE 40 MG INJ IVP SCH (09:00)
[2021-08-14] MEDS: THIAMINE 200 MG/2 ML INJ IVP SCH (09:00)
[2021-08-14] MEDS: levETIRAcetam 500 MG in NA CHLORIDE 0.9% 100 ML IV SCH ×2 (09:00→21:00)
[2021-08-14] MEDS: ENOXAPARIN 40 MG/0.4 ML SQ SCH (09:00)
[2021-08-14] MEDS: FOLIC ACID 1 MG in NA CHLORIDE 0.9% 50 ML IV SCH (09:00)
[2021-08-14] MEDS ORDERED: FOLIC ACID 5 MG/ML VIAL IVP SCH (09:00)
[2021-08-14] MEDS ORDERED: THIAMINE 200 MG/2 ML INJ ONE (09:33)
[2021-08-14] MEDS ORDERED: NA CHLORIDE 0.9% 100 ML ONE ×2 (09:33→20:42)
[2021-08-14] MEDS ORDERED: PANTOPRAZOLE 40 MG INJ ONE (09:33)
[2021-08-14] MEDS ORDERED: ENOXAPARIN 40 MG/0.4 ML SQ ONE (09:34)
[2021-08-14] MEDS ORDERED: LEVETIRACETAM 500 MG/5 ML VIAL IV ONE ×2 (09:51→20:41)
[2021-08-14] MEDS: D5 0.9 NS 1,000 ML IV SCH (11:03)
[2021-08-14] MEDS ORDERED: D5 0.9 NS 1,000 ML IV ONE (12:44)
--- NOTE | 2021-08-14 15:06 | ECHO ---
HEIGHT: 5 ft 11 in WEIGHT: 207 lb 0 oz DATE OF STUDY: 08/14/[address]: Shawn Pavon DO 2-DIMENSIONAL: YES M.MODE: YES DOPPLER: YES COLOR FLOW: YES TDS: NO PORTABLE: NO DEFINITY: NO BUBBLE STUDY: NO DIAGNOSIS: THC AND AMPHETAMINE USE CARDIAC HISTORY: CATHERIZATION: SURGERY: [*] PROSTHETIC VALVE: PACEMAKER: MEASUREMENTS (cm) DIASTOLIC (NORMALS) SYSTOLIC (NORMALS) IVSd 1.1 (0.6-1.2) LA Diam 2.4 (1.9-4.0) LVEF 62% LVIDd 5.3 (3.5-5.7) LVIDs 3.5 (2.0-3.5) %FS 34% LVPWd 1.1 (0.6-1.2) Ao Diam 3.4 (2.0-3.7) 2 DIMENSIONAL ASSESSMENT: RIGHT ATRIUM: NORMAL LEFT ATRIUM: NORMAL RIGHT VENTRICLE: NORMAL LEFT VENTRICLE: NORMAL TRICUSPID VALVE: MITRAL VALVE: NORMAL PULMONIC VALVE: AORTIC VALVE: NORMAL PERICARDIAL EFFUSION: NONE AORTIC ROOT: NORMAL LEFT VENTRICULAR WALL MOTION: NORMAL DOPPLER/COLOR FLOW: SEE BELOW COMMENTS: NORMAL LEFT VENTRICULAR EJECTION FRACTION 60-65% WITH NORMAL WALL MOTION. MILD TRICUSPID AND PULMONARY REGURGITATION. TECHNOLOGIST: Yi SCHULTZ
--- NOTE | 2021-08-14 19:39 | CON ---
Reason For Consultation: Consultation was called because of seizures. History Of Present Illness: Mr. Saleh is a 41-year-old right-handed patient with depression , peripheral neuropathy, history of alcohol use in addition of Juarez's esophagitis, who comes to [facility] after an apparent seizure while he was being evaluated for lower extremity venous i nsufficiency. The seizure is not described. However, he was seen by the emergency medical services where consult was called in and he was apparently stabilized and brought to [facility] where another witnessed generalized seizure occurred. Following the event he is postictal. He was loaded with Kep pra 1 g and placed on maintenance of 500 twice daily. His drug screen was positive for amphetamines, benzodiazepines and tetrahydrocannabinols. He has complete blood count, but differential was normal . Coagulation panel normal. Chemistry is essentially unremarkable except for slightly elevated chlo ride level. Liver function studies are normal. Thyroid studies were normal. Urinalysis only showed a trace of blood, but was otherwise unremarkable. COVID-19 test was negative. Carotid artery ultra sound studies showed no evidence of hemodynamically significant stenosis. His head CT angiogram show ed no significant abnormalities. His brain CT scan showed no acute ischemic or hemorrhagic findings. Since he received Keppra, he has not had additional seizure activity and he is in ICU bed, lying on his left side, in no distress. Past Medical History: Low vitamin D, depression, gastroesophageal reflux disease, peripheral neuropa thy. Allergies: NO KNOWN DRUG ALLERGIES. Home Medications: Vitamin D 50,000 units weekly, Prozac daily, Prilosec 40 mg twice daily, aspirin 8 1 mg daily, and Phenergan 25 mg every 12 hours as needed. Past Surgical History: Cholecystectomy. Family History: Mother has had cancer and diabetes. Social History: Is noted that the patient smokes daily and uses illegal drugs. Physical Examination: Vital Signs: Blood pressure 115/80, pulse 52, respiratory rate 14, temperature 98.8, oxygen saturati on 98%. Weight 207 pounds, height 5 feet 11 inches, BMI 28.9. General: Mr. Quezada is lying on his left side in bed. He is in no acute distress. HEENT: He appears normocephalic, atraumatic. Sclerae anicteric. Oropharynx is moist. Neck: Supple. Chest: Clear. Heart: Regular. Extremities: Show no edema, cyanosis, or clubbing. Neurologically: Cranial nerves, motor, coordination, sensation, reflexes are intact. He has no foca l abnormalities. Assessment: Mr. Quezada is a 41-year-old patient with multi drug abuse and seizures, now on Keppra. He was strongly encouraged to stop using illegal drugs and to take Keppra as prescribed, which is 50 0 mg twice daily. He was told he should not drive a car or operate heavy machinery for 3 months with date of his last seizure. He should be on thiamine 100 mg daily in addition to folic acid 1 mg manasa y, multivitamin daily, and may follow up in clinic if he chooses to Dr. Earl's office 1 month lat er. BAUDILIO/KAREEM Voice ID: [id number] Report ID: [id number]
[2021-08-15] MEDS: D5 0.9 NS 1,000 ML IV SCH ×2 (02:26→13:43)
[2021-08-15] MEDS ORDERED: D5W 0 ML IV ONE (02:48)
[2021-08-15] MEDS ORDERED: D5 0.9 NS 1,000 ML IV ONE (02:51)
[2021-08-15 04:12] LABS: Absolute Lymphocytes (CBC) 2.2 K/uL (0.7-4.9); Basophils % 0.9 % (0-1.3); Hematocrit 42.4 % (39.6-49.0); Lymphocytes % 22.1 % (15.3-44.8); MPV 8.3 fL (7.6-11.3); RBC Red Blood Cell Count 4.91 M/uL (4.33-5.43)
[2021-08-15 04:28] LABS: ALT/SGPT 26 U/L (12-78); AST/SGOT 17 U/L (15-37); Albumin 3.1 g/dL (3.4-5.0); Alkaline Phosphatase 100 U/L (45-117); BUN Blood Urea Nitrogen 11 mg/dL (7-18); Bicarbonate 26 mmol/L (21-32); Bilirubin Total 0.5 mg/dL (0.2-1.0); Glucose Level 91 mg/dL (74-106); Magnesium 2.1 mg/dL (1.8-2.4); Potassium 3.8 mmol/L (3.5-5.1); Protein, Total 6.5 g/dL (6.4-8.2); Sodium Level 145 mmol/L (136-145)
--- NOTE | 2021-08-15 06:14 | P.PN ---
Subjective Date of Service: 08/15/21 Primary Care Provider: Dr. Hollingsworth; GI-Dr. Mcduffie Chief Complaint: Seizure activity Subjective: Other (Patient more alert today. Still with weakness to the right side.) Physical Examination - Vital Signs Temperature: 98.6 F Blood Pressure: 96/50 Pulse: 58 Respirations: 15 Pulse Ox (%): 94 Assessment & Plan Discharge Plan: Other (Home versus inpatient rehab) Plan to discharge in: 48 Hours Physician Review Additional Text: COVID: negative CT Head: COMPARISON: Head Brain Wo Cont dated 05/24/2021; Head angio dated 07/13/2020 TECHNIQUE: All CT scans are performed using dose optimization technique as appropriate and may include automated exposure control or mA/KV adjustment according to patient size. FINDINGS: No intracranial hemorrhage, hydrocephalus or extra-axial fluid collection.No areas of brain edema or evidence of midline shift. The paranasal sinuses and mastoids are clear. The calvarium is intact. IMPRESSION: No acute intracranial abnormality. CTA Head: COMPARISON: Ct Stroke Brain Wo Cont dated 08/13/2021; Head Brain Wo Cont dated 05/24/2021 TECHNIQUE: CT angiography of the head was performed with MIPs. All CT scans are performed using dose optimization technique as appropriate and may include automated exposure control or mA/KV adjustment according to patient size. FINDINGS: No evidence of aneurysm is detected. No flow-limiting stenosis or vascular malformation identified. Antegrade flow is seen in the vertebral arteries. The right-sided vertebral ar gabino is dominant. The visualized dural venous sinuses are patent. IMPRESSION: No significant flow abnormality is detected. CXR: COMPARISON: Chest Single View dated 05/24/2021; Abdomen 1 View (KUB) dated 04/01/2021; Chest Single View dated 11/04/2020; Chest Single View dated 07/13/2020 FINDINGS: Portable technique limits examination quality. Bilateral iwyj-wo-fhfclalj interstitial lung opacity may represent viral infection or pulmonary edema. The heart is mildly prominent in size. No displaced fractures. Carotid doppler: COMPARISON: No comparisons TECHNIQUE: Real-time sonographic evaluation of bilateral carotid and vertebral systems was performed. Russo scale and Doppler interrogation were performed with waveform tracing bilaterally. FINDINGS: Normal high resistance waveforms are noted in both external carotid arteries. The common carotid arteries and internal carotid arteries show normal low resistance waveforms. No significant plaque formation is seen. Very minimal plaquing present shows no significant luminal narrowing. Peak systolic and end diastolic velocity values and the ICA/CCA ratios are in the non-hemodynamically significant range. Antegrade flow seen in both vertebral arteries. Velocity values and ratios were recorded and are retained in the patient's imaging records. IMPRESSION: No significant atherosclerotic changes noted. No evidence of a hemodynamically significant stenosis. MRA Brain: COMPARISON: No comparisons FINDINGS: 3D noncontrast guos-ux-iwepqi MR angiography of the [place] was performed. No aneurysm or occlusion is identified. Difficult to exclude a moderate stenosis of the right M2 segment of the middle cerebral artery. Right dominant vertebral artery. The visualized dural venous sinuses appear patent. IMPRESSION: No aneurysm or large vessel occlusion. Possible moderate focal stenosis of the right M2 segment of the middle cerebral artery versus artifact. ECHO: CARDIAC HISTORY: CATHERIZATION: SURGERY: [*] PROSTHETIC VALVE: PACEMAKER: MEASUREMENTS (cm) DIASTOLIC (NORMALS) SYSTOLIC (NORMALS) IVSd 1.1 (0.6-1.2) LA Diam 2.4 (1.9-4.0) LVEF 62% LVIDd 5.3 (3.5-5.7) LVIDs 3.5 (2.0-3.5) %FS 34% LVPWd 1.1 (0.6-1.2) Ao Diam 3.4 (2.0-3.7) 2 DIMENSIONAL ASSESSMENT: RIGHT ATRIUM: NORMAL LEFT ATRIUM: NORMAL RIGHT VENTRICLE: NORMAL LEFT VENTRICLE: NORMAL TRICUSPID VALVE: MITRAL VALVE: NORMAL PULMONIC VALVE: AORTIC VALVE: NORMAL PERICARDIAL EFFUSION: NONE AORTIC ROOT: NORMAL LEFT VENTRICULAR WALL MOTION: NORMAL DOPPLER/COLOR FLOW: SEE BELOW COMMENTS: NORMAL LEFT VENTRICULAR EJECTION FRACTION 60-65% WITH NORMAL WALL MOTION. MILD TRICUSPID AND PULMONARY REGURGITATION. Physical Exam: GENERAL: Patient more alert today. VITAL SIGNS: Reviewed HEENT: Neck supple LUNGS: Clear to auscultation. No crackles or wheezes are heard. HEART: Regular rate and rhythm, no appreciable gallops, rubs, murmurs or extra heart sounds ABDOMEN: Soft, nondistended. Positive bowel sounds. No hepatosplenomegaly was noted. EXTREMITIES: Patient with right-sided deficit. Patient has sensation intact. NEUROLOGIC: Patient more alert today. Patient appropriate. SKIN: Normal color, turgor and temperature. No ulcerations or rashes noted. 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 Patient still with right-sided deficit. MRA brain shows no acute abnormality. MRI still needs to be done as this was not complete. Will order MRI with and without contrast of the brain to further evaluate. Case discussed at length with neurology. Neurology suspects deficit related to Haile's paralysis. Will change Keppra to oral. Physical therapy to continue to ambulate. If his deficit continues will need to consider inpatient rehab. Will consult social work to help with this. Urine drug screen positive for THC and amphetamines: Drug cessation addressed in detail. Patient plans to quit. GERD with history of Juarez's esophagus: Patient has seen GI. Patient with prior EGD showing Juarez's esophagus. Continue with PPI. Aspiration precaution in place. Neuropathy: Consider restarting Neurontin Depression: Restart fluoxetine Code Status: Full Code DVT prophylaxis: Lovenox Advanced Care Planning-30 minutes: Home at discharge versus inpatient rehab Time Spent Managing Pts Care (In Minutes): 55
--- NOTE | 2021-08-15 08:26 | RAD REPORT ---
EXAM DESCRIPTION: MRI - MRA Head Wo Cont - 08/14/2021 7:00 pm CLINICAL HISTORY: seizure CVA COMPARISON: No comparisons FINDINGS: 3D noncontrast evcd-ji-wjupha MR angiography of the [place] of [place] was performed. No aneurysm or occlusion is identified. Difficult to exclude a moderate stenosis of the right M2 segm ent of the middle cerebral artery. Right dominant vertebral artery. The visualized dural venous sinuses appear patent. IMPRESSION: No aneurysm or large vessel occlusion. Possible moderate focal stenosis of the right M2 segment of the middle cerebral artery versus artifact.
[2021-08-15] MEDS: FOLIC ACID 1 MG in NA CHLORIDE 0.9% 50 ML IV SCH (09:00)
[2021-08-15] MEDS ORDERED: POTASSIUM 25 MEQ EFFERV TAB PO ONE (09:00)
[2021-08-15] MEDS: PANTOPRAZOLE 40 MG INJ IVP SCH (09:39)
[2021-08-15] MEDS: ENOXAPARIN 40 MG/0.4 ML SQ SCH (09:39)
[2021-08-15] MEDS: levETIRAcetam 500 MG in NA CHLORIDE 0.9% 100 ML IV SCH (09:39)
[2021-08-15] MEDS ORDERED: LEVETIRACETAM 500 MG/5 ML VIAL IV ONE (10:02)
[2021-08-15] MEDS ORDERED: NA CHLORIDE 0.9% 100 ML ONE (10:03)
[2021-08-15] MEDS ORDERED: POTASSIUM 25 MEQ EFFERV TAB ONE (10:03)
[2021-08-15] MEDS ORDERED: PANTOPRAZOLE 40 MG INJ ONE (10:03)
[2021-08-15] MEDS ORDERED: ENOXAPARIN 40 MG/0.4 ML SQ ONE (10:03)
[2021-08-15] MEDS: THIAMINE 200 MG/2 ML INJ IVP SCH (10:39)
[2021-08-15] MEDS ORDERED: THIAMINE 200 MG/2 ML INJ ONE (10:57)
[2021-08-15] MEDS: LORazepam 2 MG/ML VIAL IV PRN ×2 (11:56→21:15)
[2021-08-15] MEDS ORDERED: LORazepam 2 MG/ML VIAL ONE (12:14)
--- NOTE | 2021-08-15 12:39 | RAD REPORT ---
EXAM DESCRIPTION: MRI - Brain W/Wo Cont - 08/15/2021 12:18 pm CLINICAL HISTORY: Seizure, suspect Haile Paralysis to R side COMPARISON: MRA Head Wo Cont dated 08/14/2021 TECHNIQUE: Sagittal and axial T1-weighted images were obtained. Axial PD/heavily T2-weighted and T2- FLAIR images were obtained along with axial DWI/ADC mapping sequences. Coronal heavily T2 weighted s equence obtained along with thin section coronal T2 haste and T1 gradient echo sequencing through the temporal lobes. . Axial and coronal post-contrast T1-weighted images were also obtained. A 20 ml Mu ltihance contrast following utilized. FINDINGS: No intracranial hemorrhage, mass or acute infarction. There is no edema or shift of midli ne structures. No extra-axial fluid collections. Russo-matter/white matter junction is preserved. Sig nal voids are seen as a normal finding in the major intracranial vessels. No medial temporal lobe foc al abnormality or asymmetry appreciated. No atrophy changes are present. There is no chronic ischemic change or other are white matter signal abnormality. Post-contrast images show normal enhancement. No dural thickening. Mastoid air cells and paranasal sinuses are clear. No sella or supra sella abnormality. No globe or o rbital content abnormality seen. Exam has motion degradation limitation. Multiple sequences had to be repeated. The exam is diagnostic for the purposes of evaluating clinical concern of Haile paralysis. IMPRESSION: Negative contrast enhanced MRI of the Brain.
[2021-08-15] MEDS: levETIRAcetam 500 MG TAB PO SCH (20:32)
--- NOTE | 2021-08-15 22:00 | RAD REPORT ---
EXAM DESCRIPTION: CT - [id number] - 08/15/2021 9:35 pm CLINICAL HISTORY: Fall/seizure COMPARISON: <Comparisons> TECHNIQUE: Axial 5 mm thick images of the head were obtained. Axial 2 mm thick images of the cervic al spine were obtained with sagittal and coronal reconstruction images generated and reviewed. All CT scans are performed using dose optimization technique as appropriate and may include automated exposure control or mA/KV adjustment according to patient size. FINDINGS: No intracranial hemorrhage, mass, edema or acute intracranial finding. No suspicion for ac te-moak infarction. No extra-axial fluid collections. Mastoid air cells and paranasal sinuses are clear. No globe or orbit abnormality seen. Cervical body height and alignment are normal. C5-6 disc space narrowing present with endplate spurri ng. No fracture or acute bony abnormality. Central canal detail is inherently limited. No paraspinal mass or hematoma. IMPRESSION: Negative CT head examination for acute or significant finding. Negative CT cervical spine examination for acute or significant finding.
[2021-08-16] MEDS: D5 0.9 NS 1,000 ML IV SCH ×2 (03:03→14:06)
--- NOTE | 2021-08-16 06:07 | P.PN ---
Subjective Date of Service: 08/16/21 Primary Care Provider: Dr. Hollingsworth; GI-Dr. Mcduffie Chief Complaint: Seizure activity Subjective: Other (Patient doing well this morning. Patient wanted to leave AGAINST MEDICAL ADVICE last night. Produce Shipper reviewed the information with him. He agreed to stay. Patient also had seizure last night. Repeat CT head neck unremarkable.) Physical Examination - Vital Signs Temperature: 97.3 F Blood Pressure: 121/74 Pulse: 55 Respirations: 20 Pulse Ox (%): 97 Assessment & Plan Discharge Plan: Other ([facility] facility) Plan to discharge in: Greater than 2 days Physician Review Additional Text: COVID: negative CT Head: COMPARISON: Head Brain Wo Cont dated 05/24/2021; Head angio dated 07/13/2020 TECHNIQUE: All CT scans are performed using dose optimization technique as appropriate and may include automated exposure control or mA/KV adjustment according to patient size. FINDINGS: No intracranial hemorrhage, hydrocephalus or extra-axial fluid collection.No areas of brain edema or evidence of midline shift. The paranasal sinuses and mastoids are clear. The calvarium is intact. IMPRESSION: No acute intracranial abnormality. CTA Head: COMPARISON: Ct Stroke Brain Wo Cont dated 08/13/2021; Head Brain Wo Cont dated 05/24/2021 TECHNIQUE: CT angiography of the head was performed with MIPs. All CT scans are performed using dose optimization technique as appropriate and may include automated exposure control or mA/KV adjustment according to patient size. FINDINGS: No evidence of aneurysm is detected. No flow-limiting stenosis or vascular malformation identified. Antegrade flow is seen in the vertebral arteries. The right-sided vertebral artery is dominant. The visualized dural venous sinuses are patent. IMPRESSION: No significant flow abnormality is detected. CXR: COMPARISON: Chest Single View dated 05/24/2021; Abdomen 1 View (KUB) dated 04/01/2021; Chest Single View dated 11/04/2020; Chest Single View dated 07/13/2020 FINDINGS: Portable technique limits examination quality. Bilateral rhhh-fi-lejdtkoo interstitial lung opacity may represent viral infection or pulmonary edema. The heart is mildly prominent in size. No displaced fractures. Carotid doppler: COMPARISON: No comparisons TECHNIQUE: Real-time sonographic evaluation of bilateral carotid and vertebral systems was performed. Russo scale and Doppler interrogation were performed with waveform tracing bilaterally. FINDINGS: Normal high resistance waveforms are noted in both external carotid arteries. The common carotid arteries and internal carotid arteries show normal low resistance waveforms. No significant plaque formation is seen. Very minimal plaquing present shows no significant luminal narrowing. Peak systolic and end diastolic velocity values and the ICA/CCA ratios are in the non-hemodynamically significant range. Antegrade flow seen in both vertebral arteries. Velocity values and ratios were recorded and are retained in the patient's imaging records. IMPRESSION: No significant atherosclerotic changes noted. No evidence of a hemodynamically significant stenosis. MRA Brain: COMPARISON: No comparisons FINDINGS: 3D noncontrast [id number] MR angiography of the [place] was performed. No aneurysm or occlusion is identified. Difficult to exclude a moderate stenosis of the right M2 segment of the middle cerebral artery. Right dominant vertebral artery. The visualized dural venous sinuses appear patent. IMPRESSION: No aneurysm or large vessel occlusion. Possible moderate focal stenosis of the right M2 segment of the middle cerebral artery versus artifact. ECHO: CARDIAC HISTORY: CATHERIZATION: SURGERY: [*] PROSTHETIC VALVE: PACEMAKER: MEASUREMENTS (cm) DIASTOLIC (NORMALS) SYSTOLIC (NORMALS) IVSd 1.1 (0.6-1.2) LA Diam 2.4 (1.9-4.0) LVEF 62% LVIDd 5.3 (3.5-5.7) LVIDs 3.5 (2.0-3.5) %FS 34% LVPWd 1.1 (0.6-1.2) Ao Diam 3.4 (2.0-3.7) 2 DIMENSIONAL ASSESSMENT: RIGHT ATRIUM: NORMAL LEFT ATRIUM: NORMAL RIGHT VENTRICLE: NORMAL LEFT VENTRICLE: NORMAL TRICUSPID VALVE: MITRAL VALVE: NORMAL PULMONIC VALVE: AORTIC VALVE: NORMAL PERICARDIAL EFFUSION: NONE AORTIC ROOT: NORMAL LEFT VENTRICULAR WALL MOTION: NORMAL DOPPLER/COLOR FLOW: SEE BELOW COMMENTS: NORMAL LEFT VENTRICULAR EJECTION FRACTION 60-65% WITH NORMAL WALL MOTION. MILD TRICUSPID AND PULMONARY REGURGITATION. MRI Brain: COMPARISON: MRA Head Wo Cont dated 08/14/2021 TECHNIQUE: Sagittal and axial T1-weighted images were obtained. Axial PD/heavily T2-weighted and T2-FLAIR images were obtained along with axial DWI/ADC mapping sequences. Coronal heavily T2 weighted sequence obtained along with thin section coronal T2 haste and T1 gradient echo sequencing through the temporal lobes. . Axial and coronal post-contrast T1-weighted images were also obtained. A 20 ml Multihance contrast following utilized. FINDINGS: No intracranial hemorrhage, mass or acute infarction. There is no edema or shift of midline structures. No extra-axial fluid collections. Russo- matter/white matter junction is preserved. Signal voids are seen as a normal finding in the major intracranial vessels. No medial temporal lobe focal abnormality or asymmetry appreciated. No atrophy changes are present. There is no chronic ischemic change or other are white matter signal abnormality. Post-contrast images show normal enhancement. No dural thickening. Mastoid air cells and paranasal sinuses are clear. No sella or supra sella abnormality. No globe or orbital content abnormality seen. Exam has motion degradation limitation. Multiple sequences had to be repeated. The exam is diagnostic for the purposes of evaluating clinical concern of Haile paralysis. IMPRESSION: Negative contrast enhanced MRI of the Brain. CT Head/Neck: COMPARISON: <Comparisons> TECHNIQUE: Axial 5 mm thick images of the head were obtained. Axial 2 mm thick images of the cervical spine were obtained with sagittal and coronal reconstruction images generated and reviewed. All CT scans are performed using dose optimization technique as appropriate and may include automated exposure control or mA/KV adjustment according to patient size. FINDINGS: No intracranial hemorrhage, mass, edema or acute intracranial finding. No suspicion for acute infarction. No extra-axial fluid collections. Mastoid air cells and paranasal sinuses are clear. No globe or orbit abnormality seen. Cervical body height and alignment are normal. C5-6 disc space narrowing present with endplate spurring. No fracture or acute bony abnormality. Central canal d etail is inherently limited. No paraspinal mass or hematoma. IMPRESSION: Negative CT head examination for acute or significant finding. Negative CT cervical spine examination for acute or significant finding. Physical Exam: GENERAL: Patient more alert today. VITAL SIGNS: Reviewed HEENT: Neck supple LUNGS: Clear to auscultation. No crackles or wheezes are heard. HEART: Regular rate and rhythm, no appreciable gallops, rubs, murmurs or extra heart sounds ABDOMEN: Soft, nondistended. Positive bowel sounds. No hepatosplenomegaly was noted. EXTREMITIES: Patient with right-sided deficit. Patient has sensation intact. Patient reports pain to the right shoulder NEUROLOGIC: Patient more alert today. Patient appropriate. SKIN: Normal color, turgor and temperature. No ulcerations or rashes noted. 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 Patient wanted to leave AGAINST MEDICAL ADVICE last night but after talking to hospital ward clerk patient willing to stay. Patient had episode of seizure last night. Patient now stable. Repeat CT scan of the head and neck unremarkable. Continue with Keppra 500 mg 1 pill twice daily. Continue physical therapy. Care discussed about skilled placement. This was discussed in detail with patient and yesterday. Both agree. This was readdressed with the patient today. Patient understands that his condition will take some time for him to recover. Will recommend to continue skilled placement. Will discuss with licensed master social worker. Continue to discuss with neurology. Continue with physical therapy and Occupational Therapy. Urine drug screen positive for THC and amphetamines: Drug cessation addressed in detail. Patient plans to quit. GERD with history of Juarez's esophagus: Patient has seen GI. Patient with prior EGD showing Juarez's esophagus. Continue with PPI. Aspiration precaution in place. Neuropathy: Restart Neurontin Depression: Continue fluoxetine Right shoulder pain: We will check x-ray. Continue physical therapy Code Status: Full Code DVT prophylaxis: Lovenox Advanced Care Planning-30 minutes: Skilled placement Time Spent Managing Pts Care (In Minutes): 55
[2021-08-16] MEDS: PANTOPRAZOLE 40MG TABLET PO SCH (06:08)
[2021-08-16 06:23] LABS: Absolute Lymphocytes (CBC) 2.3 K/uL (0.7-4.9); Basophils % 0.5 % (0-1.3); Hematocrit 41.8 % (39.6-49.0); Lymphocytes % 31.9 % (15.3-44.8); MPV 8.2 fL (7.6-11.3); RBC Red Blood Cell Count 4.77 M/uL (4.33-5.43)
[2021-08-16] MEDS: ACETAMINOPHEN 500 MG TAB PO PRN (06:26)
[2021-08-16 06:37] LABS: ALT/SGPT 26 U/L (12-78); AST/SGOT 15 U/L (15-37); Albumin 3.3 g/dL (3.4-5.0); Alkaline Phosphatase 102 U/L (45-117); BUN Blood Urea Nitrogen 11 mg/dL (7-18); Bicarbonate 28 mmol/L (21-32); Bilirubin Total 0.4 mg/dL (0.2-1.0); Glucose Level 87 mg/dL (74-106); Magnesium 2.2 mg/dL (1.8-2.4); Potassium 3.8 mmol/L (3.5-5.1); Protein, Total 6.6 g/dL (6.4-8.2); Sodium Level 140 mmol/L (136-145)
[2021-08-16] MEDS: ASPIRIN 81 MG CHEWABLE TABLET PO SCH (09:43)
[2021-08-16] MEDS: FOLIC ACID 1 MG TABLET PO SCH (09:44)
[2021-08-16] MEDS: FLUOXETINE 10 MG CAP PO SCH (09:44)
[2021-08-16] MEDS: levETIRAcetam 500 MG TAB PO SCH (09:44)
[2021-08-16] MEDS: THIAMINE HCL 100 MG TABLET PO SCH (09:44)
[2021-08-16] MEDS: ENOXAPARIN 40 MG/0.4 ML SQ SCH (09:44)
--- NOTE | 2021-08-16 10:47 | RAD REPORT ---
EXAM DESCRIPTION: RAD - Shoulder Right 2 View - 08/16/2021 10:02 am CLINICAL HISTORY: Right shoulder pain FINDINGS: No fracture or dislocation is seen.
[2021-08-16] MEDS: HYDROCODONE/APAP 7.5/325 MG TAB PO PRN ×2 (14:06→19:54)
[2021-08-16] MEDS: LORazepam 2 MG/ML VIAL IV PRN ×2 (15:55→19:50)
[2021-08-16] MEDS: VALPROATE SODIUM INJ 500 MG in NA CHLORIDE 0.9% 100 ML IV SCH (17:20)
[2021-08-16] MEDS ORDERED: LEVETIRACETAM 500 MG/5 ML VIAL IV ONE (17:59)
[2021-08-16] MEDS ORDERED: NA CHLORIDE 0.9% 200 ML ONE (17:59)
[2021-08-16] MEDS ORDERED: VALPROATE NA 500 MG/5 ML INJ IV ONE (18:20)
[2021-08-16] MEDS: levETIRAcetam 500 MG in NA CHLORIDE 0.9% 100 ML IV SCH (19:49)
[2021-08-16] MEDS ORDERED: LORazepam 2 MG/ML VIAL ONE (20:34)
[2021-08-16] MEDS ORDERED: HYDROCODONE/APAP 7.5/325 MG TAB ONE (20:53)
[2021-08-17] MEDS: LORazepam 2 MG/ML VIAL IV PRN ×5 (01:15→19:35)
[2021-08-17] MEDS: HYDROCODONE/APAP 7.5/325 MG TAB PO PRN ×3 (01:59→23:00)
[2021-08-17] MEDS ORDERED: LORazepam 2 MG/ML VIAL ONE ×7 (02:13→20:28)
[2021-08-17] MEDS ORDERED: HYDROCODONE/APAP 7.5/325 MG TAB ONE ×3 (02:58→23:59)
[2021-08-17 04:05] LABS: BUN Blood Urea Nitrogen 14 mg/dL (7-18); Bicarbonate 25 mmol/L (21-32); Glucose Level 96 mg/dL (74-106); Magnesium 2.1 mg/dL (1.8-2.4); Sodium Level 145 mmol/L (136-145)
[2021-08-17] MEDS: D5 0.9 NS 1,000 ML IV SCH (05:48)
[2021-08-17] MEDS: PANTOPRAZOLE 40MG TABLET PO SCH (05:48)
[2021-08-17] MEDS: TRAMADOL HCL 50 MG TAB PO PRN (05:58)
--- NOTE | 2021-08-17 06:05 | P.PN ---
Subjective Date of Service: 08/17/21 Primary Care Provider: Dr. Hollingsworth; GI-Dr. Mcduffie Chief Complaint: Seizure activity Subjective: Other (Patient had 3 episodes of seizures last night controlled with Ativan. Overall stable this morning.) Physical Examination - Vital Signs Temperature: 98.1 F Blood Pressure: 104/60 Pulse: 65 Respirations: 14 Pulse Ox (%): 94 Assessment & Plan Discharge Plan: Other (intermediate facility) Plan to discharge in: Greater than 2 days Physician Review Additional Text: COVID: negative CT Head: COMPARISON: Head Brain Wo Cont dated 05/24/2021; Head angio dated 07/13/2020 TECHNIQUE: All CT scans are performed using dose optimization technique as appropriate and may include automated exposure control or mA/KV adjustment acco rding to patient size. FINDINGS: No intracranial hemorrhage, hydrocephalus or extra-axial fluid collection.No areas of brain edema or evidence of midline shift. The paranasal sinuses and mastoids are clear. The calvarium is intact. IMPRESSION: No acute intracranial abnormality. CTA Head: COMPARISON: Ct Stroke Brain Wo Cont dated 08/13/2021; Head Brain Wo Cont dated 05/24/2021 TECHNIQUE: CT angiography of the head was performed with MIPs. All CT scans are performed using dose optimization technique as appropriate and may include automated exposure control or mA/KV adjustment according to patient size. FINDINGS: No evidence of aneurysm is detected. No flow-limiting stenosis or vascular malformation identified. Antegrade flow is seen in the vertebral arteries. The right-sided vertebral artery is dominant. The visualized dural venous sinuses are patent. IMPRESSION: No significant flow abnormality is detected. CXR: COMPARISON: Chest Single View dated 05/24/2021; Abdomen 1 View (KUB) dated 04/01/2021; Chest Single View dated 11/04/2020; Chest Single View dated 07/13/2020 FINDINGS: Portable technique limits examination quality. Bilateral dwho-gv-dwjjbtve interstitial lung opacity may represent viral infection or pulmonary edema. The heart is mildly prominent in size. No displaced fractures. Carotid doppler: COMPARISON: No comparisons TECHNIQUE: Real-time sonographic evaluation of bilateral carotid and vertebral systems was performed. Russo scale and Doppler interrogation were performed with waveform tracing bilaterally. FINDINGS: Normal high resistance waveforms are noted in both external carotid arteries. The common carotid arteries and internal carotid arteries show normal low resistance waveforms. No significant plaque formation is seen. Very minimal plaquing present shows no significant luminal narrowing. Peak systolic and end diastolic velocity values and the ICA/CCA ratios are in the non-hemodynamically significant range. Antegrade flow seen in both vertebral arteries. Velocity values and ratios were recorded and are retained in the patient's imaging records. IMPRESSION: No significant atherosclerotic changes noted. No evidence of a hemodynamically significant stenosis. MRA Brain: COMPARISON: No comparisons FINDINGS: 3D noncontrast [id number]-epztow MR angiography of the [place] was performed. No aneurysm or occlusion is identified. Difficult to exclude a moderate stenosis of the right M2 segment of the middle cerebral artery. Right dominant vertebral artery. The visualized dural venous sinuses appear patent. IMPRESSION: No aneurysm or large vessel occlusion. Possible moderate focal stenosis of the right M2 segment of the middle cerebral artery versus artifact. ECHO: CARDIAC HISTORY: CATHERIZATION: SURGERY: [*] PROSTHETIC VALVE: PACEMAKER: MEASUREMENTS (cm) DIASTOLIC (NORMALS) SYSTOLIC (NORMALS) IVSd 1.1 (0.6-1.2) LA Diam 2.4 (1.9-4.0) LVEF 62% LVIDd 5.3 (3.5-5.7) LVIDs 3.5 (2.0-3.5) %FS 34% LVPWd 1.1 (0.6-1.2) Ao Diam 3.4 (2.0-3.7) 2 DIMENSIONAL ASSESSMENT: RIGHT ATRIUM: NORMAL LEFT ATRIUM: NORMAL RIGHT VENTRICLE: NORMAL LEFT VENTRICLE: NORMAL TRICUSPID VALVE: MITRAL VALVE: NORMAL PULMONIC VALVE: AORTIC VALVE: NORMAL PERICARDIAL EFFUSION: NONE AORTIC ROOT: NORMAL LEFT VENTRICULAR WALL MOTION: NORMAL DOPPLER/COLOR FLOW: SEE BELOW COMMENTS: NORMAL LEFT VENTRICULAR EJECTION FRACTION 60-65% WITH NORMAL WALL MOTION. MILD TRICUSPID AND PULMONARY REGURGITATION. MRI Brain: COMPARISON: MRA Head Wo Cont dated 08/14/2021 TECHNIQUE: Sagittal and axial T1-weighted images were obtained. Axial PD/heavily T2-weighted and T2-FLAIR images were obtained along with axial DWI/ADC mapping sequences. Coronal heavily T2 weighted sequence obtained along with thin section coronal T2 haste and T1 gradient echo sequencing through the temporal lobes. . Axial and coronal post-contrast T1-weighted images were also obtained. A 20 ml Multihance contrast following utilized. FINDINGS: No intracranial hemorrhage, mass or acute infarction. There is no edema or shift of midline structures. No extra-axial fluid collections. Russo- matter/white matter junction is preserved. Signal voids are seen as a normal finding in the major intracranial vessels. No medial temporal lobe focal abnormality or asymmetry appreciated. No atrophy changes are present. There is no chronic ischemic change or other are white matter signal abnormality. Post-contrast images show normal enhancement. No dural thickening. Mastoid air cells and paranasal sinuses are clear. No sella or supra sella abnormality. No globe or orbital content abnormality seen. Exam has motion degradation limitation. Multiple sequences had to be repeated. The exam is diagnostic for the purposes of evaluating clinical concern of Haile paralysis. IMPRESSION: Negative contrast enhanced MRI of the Brain. CT Head/Neck: COMPARISON: <Comparisons> TECHNIQUE: Axial 5 mm thick images of the head were obtained. Axial 2 mm thick images of the cervical spine were obtained with sagittal and coronal reconstruction images generated and reviewed. All CT scans are performed using dose optimization technique as appropriate and may include automated exposure control or mA/KV adjustment according to patient size. FINDINGS: No intracranial hemorrhage, mass, edema or acute intracranial finding. No suspicion for acute infarction. No extra-axial fluid collections. Mastoid air cells and paranasal sinuses are clear. No globe or orbit abnormality seen. Cervical body height and alignment are normal. C5-6 disc space narrowing present with endplate spurring. No fracture or acute bony abnormality. Central canal detail is inherently limited. No paraspinal mass or hematoma. IMPRESSION: Negative CT head examination for acute or significant finding. Negative CT cervical spine examination for acute or significant finding. Physical Exam: GENERAL: Patient alert. Increase lethargy noted. VITAL SIGNS: Reviewed HEENT: Neck supple LUNGS: Clear to auscultation. No crackles or wheezes are heard. HEART: Regular rate and rhythm, no appreciable gallops, rubs, murmurs or extra heart sounds ABDOMEN: Soft, nondistended. Positive bowel sounds. No hepatosplenomegaly was noted. EXTREMITIES: Patient with right-sided deficit. Able to move other extremities. NEUROLOGIC: Patient alert. Increased tiredness noted. SKIN: Normal color, turgor and temperature. No ulcerations or rashes noted. 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 Patient had 3 episodes of seizures overnight. Continue with Ativan as needed. Case discussed at length with neurology yesterday. Patient transferred to ICU last night. Now on IV Keppra and IV Depakote. Depakote subtherapeutic this morning. Will recheck Depakote level tomorrow. May need to make further adjustments. Continue IV fluids. Encourage oral intake. Fall precaution in place. Continue with physical therapy. Patient and family agreeable for skilled placement. Will pursue this as the patient improves. Seizure activity likely related to drug abuse. Cessation education provided and address. Continue with neurology recommendations. I will turn the service over to the hospitalist team tomorrow. I will go plan of care with him. Urine drug screen positive for THC and amphetamines: Drug cessation addressed in detail. Patient plans to quit. GERD with history of Juarez's esophagus: Patient has seen GI. Patient with prior EGD showing Juarez's esophagus. Continue with PPI. Aspiration precaution in place. Neuropathy(Haile's paralysis): We'll monitor closely. Continue with above plan of care. Depression: Continue fluoxetine. Will provide medication for anxiety Right shoulder pain: X-ray shows no evidence of fracture. Continue physical therapy Code Status: Full Code DVT prophylaxis: Lovenox Advanced Care Planning-30 minutes: Skilled placement Time Spent Managing Pts Care (In Minutes): 55
[2021-08-17] MEDS: D5 0.45 NS 1,000 ML IV SCH ×2 (06:09→20:26)
[2021-08-17] MEDS ORDERED: PANTOPRAZOLE 40MG TABLET PO ONE (06:47)
[2021-08-17] MEDS ORDERED: D5W 0 ML IV ONE (06:47)
[2021-08-17] MEDS ORDERED: D5 0.9 NS 1,000 ML IV ONE (06:52)
[2021-08-17] MEDS ORDERED: TRAMADOL HCL 50 MG TAB ONE (06:57)
[2021-08-17] MEDS ORDERED: LORazepam 2 MG/ML VIAL IV ONE (07:04)
[2021-08-17] MEDS ORDERED: D5 0.45 NS 1,000 ML IV ONE ×2 (07:07→21:25)
[2021-08-17] MEDS: levETIRAcetam 500 MG in NA CHLORIDE 0.9% 100 ML IV SCH ×3 (09:00→20:24)
[2021-08-17] MEDS: ASPIRIN 81 MG CHEWABLE TABLET PO SCH (09:00)
[2021-08-17] MEDS ORDERED: THIAMINE HCL 100 MG TABLET ONE (09:45)
[2021-08-17] MEDS ORDERED: ENOXAPARIN 40 MG/0.4 ML SQ ONE (09:46)
[2021-08-17] MEDS ORDERED: ASPIRIN EC 81 MG TAB PO ONE (09:46)
[2021-08-17] MEDS ORDERED: VALPROATE NA 500 MG/5 ML INJ IV ONE (09:46)
[2021-08-17] MEDS ORDERED: FOLIC ACID 1 MG TABLET ONE (09:46)
[2021-08-17] MEDS: ENOXAPARIN 40 MG/0.4 ML SQ SCH (10:00)
[2021-08-17] MEDS: FOLIC ACID 1 MG TABLET PO SCH (10:00)
[2021-08-17] MEDS: THIAMINE HCL 100 MG TABLET PO SCH (10:01)
[2021-08-17] MEDS: FLUOXETINE 10 MG CAP PO SCH (10:04)
[2021-08-17] MEDS: VALPROATE SODIUM INJ 500 MG in NA CHLORIDE 0.9% 100 ML IV SCH ×2 (10:37→20:23)
[2021-08-17] MEDS: ACETAMINOPHEN 500 MG TAB PO PRN (11:33)
[2021-08-17] MEDS ORDERED: VALPROATE SODIUM INJ 500 MG in NA CHLORIDE 0.9% 100 ML IV ONE (12:00)
[2021-08-17] MEDS ORDERED: ACETAMINOPHEN 500 MG TAB ONE (12:32)
[2021-08-17] MEDS ORDERED: ONDANSETRON 4 MG/2 ML VIAL ONE (12:32)
[2021-08-17] MEDS: FAMOTIDINE 20 MG TAB PO SCH ×4 (15:00→23:01)
[2021-08-17] MEDS ORDERED: levETIRAcetam 500 MG in NA CHLORIDE 0.9% 100 ML IV SCH (21:00)
[2021-08-17] MEDS ORDERED: FAMOTIDINE 20 MG TAB ONE ×2 (21:01→23:59)
[2021-08-17] MEDS ORDERED: NA CHLORIDE 0.9% 100 ML ONE (21:07)
[2021-08-17] MEDS ORDERED: LEVETIRACETAM 500 MG/5 ML VIAL IV ONE (21:07)
[2021-08-18] MEDS: LORazepam 2 MG/ML VIAL IV PRN ×4 (01:40→21:49)
[2021-08-18] MEDS ORDERED: LORazepam 2 MG/ML VIAL ONE ×4 (02:35→22:12)
[2021-08-18] MEDS: TRAMADOL HCL 50 MG TAB PO PRN ×2 (02:48→15:00)
[2021-08-18] MEDS ORDERED: TRAMADOL HCL 50 MG TAB ONE ×2 (03:47→15:58)
[2021-08-18 05:21] LABS: Absolute Lymphocytes (CBC) 2.4 K/uL (0.7-4.9); Basophils % 0.5 % (0-1.3); Hematocrit 33.6 % (39.6-49.0); Lymphocytes % 37.7 % (15.3-44.8); RBC Red Blood Cell Count 3.67 M/uL (4.33-5.43)
[2021-08-18 05:41] LABS: ALT/SGPT 28 U/L (12-78); AST/SGOT 18 U/L (15-37); Albumin 2.7 g/dL (3.4-5.0); Alkaline Phosphatase 86 U/L (45-117); BUN Blood Urea Nitrogen 8 mg/dL (7-18); Bicarbonate 27 mmol/L (21-32); Bilirubin Total 0.3 mg/dL (0.2-1.0); Glucose Level 307 mg/dL (74-106); Magnesium 1.8 mg/dL (1.8-2.4); Potassium 3.5 mmol/L (3.5-5.1); Protein, Total 5.4 g/dL (6.4-8.2); Sodium Level 141 mmol/L (136-145); Valproic Acid (Depakene) Level 31.1 ug/mL (50-100)
[2021-08-18] MEDS ORDERED: POTASSIUM CL SA 10 MEQ TAB PO ONE ×2 (06:06→07:28)
[2021-08-18] MEDS ORDERED: MAGNESIUM SULFATE 1 gm IVPB 1 GM/100 ML BAG IV ONE ×2 (06:07→07:29)
[2021-08-18] MEDS: FOLIC ACID 1 MG TABLET PO SCH (08:23)
[2021-08-18] MEDS: ENOXAPARIN 40 MG/0.4 ML SQ SCH (08:23)
[2021-08-18] MEDS: FAMOTIDINE 20 MG TAB PO SCH ×2 (08:23→21:49)
[2021-08-18] MEDS: FLUOXETINE 10 MG CAP PO SCH (08:24)
[2021-08-18] MEDS: THIAMINE HCL 100 MG TABLET PO SCH (08:24)
[2021-08-18] MEDS: ASPIRIN 81 MG CHEWABLE TABLET PO SCH (08:25)
[2021-08-18] MEDS: HYDROCODONE/APAP 7.5/325 MG TAB PO PRN ×2 (08:35→17:38)
[2021-08-18] MEDS ORDERED: THIAMINE HCL 100 MG TABLET ONE (08:50)
[2021-08-18] MEDS ORDERED: FOLIC ACID 1 MG TABLET ONE (08:50)
[2021-08-18] MEDS ORDERED: ASPIRIN EC 81 MG TAB PO ONE (08:50)
[2021-08-18] MEDS ORDERED: FAMOTIDINE 20 MG TAB ONE ×2 (08:51→22:11)
[2021-08-18] MEDS ORDERED: ENOXAPARIN 40 MG/0.4 ML SQ ONE (08:51)
[2021-08-18] MEDS: VALPROATE SODIUM INJ 500 MG in NA CHLORIDE 0.9% 100 ML IV SCH ×2 (08:53→21:00)
[2021-08-18] MEDS: levETIRAcetam 500 MG in NA CHLORIDE 0.9% 100 ML IV SCH ×2 (08:57→21:00)
[2021-08-18] MEDS ORDERED: HYDROCODONE/APAP 7.5/325 MG TAB ONE ×2 (09:34→18:37)
[2021-08-18] MEDS ORDERED: LEVETIRACETAM 500 MG/5 ML VIAL IV ONE ×2 (09:54→22:13)
[2021-08-18] MEDS ORDERED: NA CHLORIDE 0.9% 100 ML ONE (09:55)
[2021-08-18] MEDS: D5 0.45 NS 1,000 ML IV SCH ×2 (11:26→23:00)
[2021-08-18] MEDS ORDERED: D5 0.45 NS 1,000 ML IV ONE (12:25)
[2021-08-18] MEDS ORDERED: VALPROATE NA 500 MG/5 ML INJ IV ONE (22:10)
[2021-08-18] MEDS ORDERED: NA CHLORIDE 0.9% 200 ML ONE (22:21)
[2021-08-18] MEDS ORDERED: NACHLORIDE 0.45% 1,000 ML IV ONE (22:21)
[2021-08-19] MEDS ORDERED: D5 0.45 NS 1,000 ML IV ONE ×2 (00:17→18:12)
[2021-08-19] MEDS ORDERED: LORazepam 2 MG/ML VIAL ONE (03:33)
[2021-08-19 04:56] LABS: BUN Blood Urea Nitrogen 7 mg/dL (7-18); Bicarbonate 31 mmol/L (21-32); Glucose Level 99 mg/dL (74-106); Potassium 3.8 mmol/L (3.5-5.1); Sodium Level 142 mmol/L (136-145)
--- NOTE | 2021-08-19 08:13 | EEG ---
CHART: [id number] TEST ID#: [id number] DATE OF STUDY: 08/14/2021 THE EEG WAS RECORDED PORTABLE IN THE EMERGENCY ROOM (ICU HOLD) ON A 17 CHANNEL MACHINE. ELECTRODES WERE APPLIED IN THE USUAL MANNER USING THE INTERNATIONAL 10-20 SYSTEM. THE WAKING BACKGROUND RHYTHM IN THIS RECORD CONSISTS OF FAIRLY WELL DEVELOPED AND WELL ORGANIZED WAVES OF 8.5 HZ., MAXIMAL IN THE POSTERIOR HEAD REGIONS WHICH ATTENUATE NORMALLY WITH EYE OPENING. LOW-VOLTAGE 18-22 HZ ACTIVITIY IS EXPRESSED IN THE FRONTAL AND CENTRAL REGIONS. THERE ARE NO FOCAL OR LATERALIZING FEATURES. NO EPILEPTIFORM ACTIVITY APPEARS. SLEEP OCCURRED NATURALLY. IN ADDITION NORMAL SLEEP PATTERNS ARE PRESENT. HYPERVENTILATION WAS NOT PERFORMED. PHOTIC STIMULATION PRODUCED POOR DRIVING BILATERALLY. IMPRESSION: NORMAL EEG FOR THE AGE OF THE PATIENT IN [place], DROWSINESS AND SLEEP.
[2021-08-19] MEDS: ASPIRIN 81 MG CHEWABLE TABLET PO SCH (08:33)
[2021-08-19] MEDS: FOLIC ACID 1 MG TABLET PO SCH (08:33)
[2021-08-19] MEDS: FAMOTIDINE 20 MG TAB PO SCH ×2 (08:34→20:19)
[2021-08-19] MEDS: VALPROATE SODIUM INJ 500 MG in NA CHLORIDE 0.9% 100 ML IV SCH ×2 (08:34→20:18)
[2021-08-19] MEDS: THIAMINE HCL 100 MG TABLET PO SCH (08:34)
[2021-08-19] MEDS: FLUOXETINE 10 MG CAP PO SCH (08:34)
[2021-08-19] MEDS: levETIRAcetam 500 MG in NA CHLORIDE 0.9% 100 ML IV SCH ×2 (08:34→20:18)
[2021-08-19] MEDS: ENOXAPARIN 40 MG/0.4 ML SQ SCH (08:35)
[2021-08-19] MEDS ORDERED: LEVETIRACETAM 500 MG/5 ML VIAL IV ONE (09:27)
[2021-08-19] MEDS ORDERED: ASPIRIN 81 MG CHEWABLE TABLET ONE (09:27)
[2021-08-19] MEDS ORDERED: FOLIC ACID 1 MG TABLET ONE (09:28)
[2021-08-19] MEDS ORDERED: THIAMINE HCL 100 MG TABLET ONE (09:28)
[2021-08-19] MEDS ORDERED: ENOXAPARIN 40 MG/0.4 ML SQ ONE (09:28)
[2021-08-19] MEDS ORDERED: FAMOTIDINE 20 MG TAB ONE ×2 (09:28→20:05)
[2021-08-19] MEDS: D5 0.45 NS 1,000 ML IV SCH (12:20)
[2021-08-19] MEDS ORDERED: HYDROCODONE/APAP 7.5/325 MG TAB ONE (20:05)
[2021-08-19] MEDS: HYDROCODONE/APAP 7.5/325 MG TAB PO PRN (20:18)
--- NOTE | 2021-08-19 20:22 | RAD REPORT ---
EXAM DESCRIPTION: RAD - Hand Left 3 View - 08/19/2021 8:16 pm CLINICAL HISTORY: hand pain and swelling COMPARISON: No comparisons FINDINGS: Mild soft tissue swelling is seen along the dorsum of the hand and wrist. No acute fractur e or dislocation is evident.
--- NOTE | 2021-08-19 21:00 | RAD REPORT ---
EXAM DESCRIPTION: RAD - Hand Right 3 View - 08/19/2021 8:50 pm CLINICAL HISTORY: hand pain and swelling COMPARISON: <Comparisons> FINDINGS: Mild soft tissue swelling is seen along the dorsum of the hand. No acute fracture or dislo cation is evident.
[2021-08-19 22:47] VITALS: O2SAT 97
[2021-08-20] MEDS: D5 0.45 NS 1,000 ML IV SCH (01:40)
[2021-08-20] MEDS ORDERED: HYDROMORPHONE HCL 2 MG/ML inj ONE (02:46)
[2021-08-20] MEDS ORDERED: LORazepam 2 MG/ML VIAL ONE (06:14)
[2021-08-20] MEDS: LORazepam 2 MG/ML VIAL IV PRN (06:25)
[2021-08-20] MEDS ORDERED: THIAMINE HCL 100 MG TABLET ONE (08:25)
[2021-08-20] MEDS ORDERED: FOLIC ACID 1 MG TABLET ONE (08:25)
[2021-08-20] MEDS ORDERED: ENOXAPARIN 40 MG/0.4 ML SQ ONE (08:26)
[2021-08-20] MEDS ORDERED: ASPIRIN EC 81 MG TAB PO ONE (08:26)
[2021-08-20] MEDS ORDERED: FAMOTIDINE 20 MG/2 ML VIAL IV ONE (08:26)
[2021-08-20] MEDS ORDERED: ASPIRIN 81 MG CHEWABLE TABLET ONE (08:27)
[2021-08-20] MEDS: ENOXAPARIN 40 MG/0.4 ML SQ SCH (08:32)
[2021-08-20] MEDS: FOLIC ACID 1 MG TABLET PO SCH (08:32)
[2021-08-20] MEDS: ASPIRIN 81 MG CHEWABLE TABLET PO SCH (08:32)
[2021-08-20] MEDS: THIAMINE HCL 100 MG TABLET PO SCH (08:32)
[2021-08-20] MEDS ORDERED: FAMOTIDINE 20 MG TAB ONE (08:33)
[2021-08-20] MEDS: FAMOTIDINE 20 MG TAB PO SCH (08:34)
[2021-08-20] MEDS: levETIRAcetam 500 MG in NA CHLORIDE 0.9% 100 ML IV SCH (09:36)
[2021-08-20] MEDS: VALPROATE SODIUM INJ 500 MG in NA CHLORIDE 0.9% 100 ML IV SCH (09:36)
[2021-08-20] MEDS: FLUOXETINE 10 MG CAP PO SCH (09:36)
--- NOTE | 2021-08-20 10:12 | P.PN ---
Subjective Date of Service: 08/18/21 Subjective: No new changes, No C/O voiced, Improving Review of Systems 10-point ROS is otherwise unremarkable Physical Examination - Vital Signs Temperature: 98.4 F Blood Pressure: 134/79 Pulse: 66 Respirations: 16 Pulse Ox (%): 96 - Physical Exam General: Alert, In no apparent distress, Other (Patient really does not respond interact appropriately.) Respiratory: Clear to auscultation bilaterally, Normal air movement Cardiovascular: Regular rate/rhythm, Normal S1 S2 Gastrointestinal: Normal bowel sounds, Soft and benign, Non-distended, No tenderness Musculoskeletal: No tenderness Integumentary: No rashes Neurological: Sensation intact, Cranial nerves 3-12 intact - Studies Medications List Reviewed: Yes Assessment & Plan - Problems (Diagnosis) (1) Pseudoseizures Current Visit: Yes Status: Acute (2) Weakness Current Visit: Yes Status: Acute (3) Hypertension Current Visit: No Status: Acute - Plan 1. On Antiepileptics-switch to po 2. IV fluids 3. Physical therapy evaluation 4. Out of bed and ambulate 5. GI and DVT prophylaxis Dc home or to a fpc facility placement. Will speak with neurologist. Discharge Plan: Home Plan to discharge in: Greater than 2 days - Advance Directives Does patient have a Living Will: No Does patient have a Durable POA for Healthcare: No - Code Status/Comfort Care Code Status Assessed: Yes Code Status: Full Code Critical Care: No Time Spent Managing PTS Care (In Minutes): 35
--- NOTE | 2021-08-20 10:26 | P.PN ---
Date of Service: 08/19/21 Subjective Subjective: Patient still not really interacting with me. Course the nurses he does wake up and talk. He does have complaints. He may have fallen yesterday. Not really getting much insight as to this. X-rays pending. Review of Systems 10-point ROS is otherwise unremarkable Physical Examination - Vital Signs Reviewed - Physical Exam General: Alert, In no apparent distress, Other (Patient really does not respond interact appropriately.) Respiratory: Clear to auscultation bilaterally, Normal air movement Cardiovascular: Regular rate/rhythm, Normal S1 S2 Gastrointestinal: Normal bowel sounds, Soft and benign, Non-distended, No tenderness Neurological: Sensation intact, Cranial nerves 3-12 intact Assessment & Plan - Problems (Diagnosis) (1) Pseudoseizures Current Visit: Yes Status: Acute (2) Weakness Current Visit: Yes Status: Acute (3) Hypertension Current Visit: No Status: Acute - Plan Continue plan of care as mentioned below: 1. On Antiepileptics-switch to po; also start antidepressant 2. Hep-Lock IV 3. Physical therapy evaluation and also occupational therapy 4. Out of bed and ambulate 5. GI and DVT prophylaxis Dc home or to a long term facility placement. Will speak with neurologist.
[2021-08-20 16:11] VITALS: TEMP 98.3
[2021-08-20 17:06] VITALS: BP 127/87
[2021-08-20] MEDS ORDERED: levETIRAcetam 500 MG TAB PO SCH (21:00)
[2021-08-20] MEDS ORDERED: DIVALPROEX DR 500MG TAB PO SCH (21:00)
== END 2021-08-20 18:39 | disposition home or self-care (01) | DRG 100 ==
LOC: ER 13:20 → ERHOLD 22:47 → 2ND 08-15 16:18 → ERHOLD 08-16 16:55
PROVIDERS: ADMIT Family Medicine; ATTEND Hospitalist
DX: R56.9 Unspecified convulsions (principal); G92.8 Other toxic encephalopathy; G83.84 Todd's paralysis (postepileptic); I10 Essential (primary) hypertension; K21.00 Gastro-esophageal reflux disease with esophagitis, without bleeding; M25.511 Pain in right shoulder; G62.9 Polyneuropathy, unspecified; F32.A Depression, unspecified; F17.210 Nicotine dependence, cigarettes, uncomplicated; T43.625A Adverse effect of amphetamines, initial encounter; R53.1 Weakness; Z79.899 Other long term (current) drug therapy; Z90.49 Acquired absence of other specified parts of digestive tract; Z79.82 Long term (current) use of aspirin; Z86.73 Personal history of transient ischemic attack (TIA), and cerebral infarction without residual deficits; Z20.822 Contact with and (suspected) exposure to COVID-19
CPT/HCPCS: 36415; 70450; 70496; 70544; 70553; 71045; 72125; 80048; 80053; 80164; 80177; 80307; 80320; 81003; 81015; 82565; 83735; 84439; 84443; 85025; 85610; 85730; 87040; 93005; 93306; 93880; 95819; 96374; 97110; 97112; 97116; 97161; 97165; 97530; 99284; A9577; C9113; J1170; J1650; J1953; J2405; J3411; J3475; J7042; J7799; Q9967; U0003

== ENCOUNTER 2021-09-17 11:25 | Emergency (ER) | payer OTHER ==
--- OUTSIDE RECORDS SUMMARY | 2021-09-17 11:29 | XMS REPORT | Continuity of Care Document ---
:1980 Author Organization [facility] t Address [address] [place] [address] Care Team Providers Name Role Phone Florina Mendoza Neil Primary Care Physician ROCHELLE LEWIS Attending Clinician Unavailable VINCE Attending Clinician Unavailable Guero ROLDAN Attending Clinician Unavailable Guero Roldan DO Attending Clinician Doctor Unassigned, Name Attending Clinician Unavailable Shubham DOMINGUEZ, M Attending Clinician MEME Attending Clinician Unavailable Saloni CANALES, G Attending Clinician Blayne GUAMAN, Gene Attending Clinician ROCHELLE LEWIS Admitting Clinician Unavailable VINCE Admitting Clinician Unavailable MEME Admitting Clinician Unavailable TYRONE JIM Admitting Clinician Unavailable Payers Payer Name Policy Type Policy Number Effective Date Expiration Date S antonia RESTREPOR FROM [id number] 2021 [facility] 00:00:00 Problems Condition Condition Condition Status Onset Resolution Last Treating Co mments Source Name Details Category Date Date Treatment Clinician Date AMS AMS Disease Active 2020-10 Univers (altered (altered 1-05 ity of mental mental 00:00: [place] status) status) 00 Medical Branch Obesity Obesity Disease Active 2020-10 Univers (BMI (BMI 1-05 ity of 30-39.9) 30-39.9) 00:00: [place] 00 Medical Branch Acute Acute Disease Active 2020-10 Overview: Univjennifer s blood loss blood loss 1-05 Formattin ity of anemia anemia 00:00: g of this [place] 00 note Medical might be Branch different from the original. Added automatic ally from request for surgery [id number] Allergies, Adverse Reactions, Alerts Allergy Allergy Status Severity Reaction(s) Onset Inactive Treating Comm ents Source Name Type Date Date Clinician NO KNOWN Allergy Active [facility] ALLERGIE S NO KNOWN Drug Active Univers ALLERGIE Class ity of S [facility] Social History Social Habit Start Date Stop Date Quantity Comments Source Exposure to Not sure [facility] SARS-CoV-2 (event) [facility] History of tobacco Cigarette Smoker University of use [facility] Tobacco Comment 2021-08-22 2021-08-22 stopped smoking Univ ersity of 00:00:00 00:00:00 last week [facility] Cigarettes smoked 2020-08-06 2020-08-06 Univers ity of current (pack per 00:00:00 00:00:00 ) - Reported Branch Tobacco use and 2020-08-06 2020-08-06 Never used Universit y of exposure 00:00:00 00:00:00 [facility] Sex Assigned At [birth year] Universit y of 00:00:00 00:00:00 [facility] Smoking Status Start Date Stop Date Source Current every day smoker 2020-08-06 00:00:00 Uni versity of [facility] Medications Ordered Filled Start Stop Current Ordering Indication Dosage Frequency Signature Comments Components Source Medication Medication Date Date Medication? Clinician (SIG) Name Name divalproex 2020-10- No 250mg 250 mg, Un oz ER 11-16-30 Oral, ity of (DE[place] 00:45: 01:00 ONCE, 1 [place]) 24 hr 00 :00 dose, On Medica l tablet 250 Mon Branch mg 09/15/21 at 1845, Routine NaCl 0.9% 2020-10- No 1000mL at 999 Uni vers (NS) bolus 11-15 11-30 mL/hr, ity of infusion 22:45: 00:00 1,000 mL, Diaz as 1,000 mL 00 :00 IV Medical Infusion, Branch ONCE, 1 dose, On 09/15/21 at 1645, ELEONORA sucralfate 2020-10 Yes [id number] 1000mg Take 10 mL Univers 100 mg/mL 1-09 by mouth 4 ity of suspension 00:00: (four) [place] 00 times Medical daily. Branch pantoprazol 2020-10 Yes [id number] 40mg Take 1 Univers e 40 mg EC 1-09 tablet by ity of tablet 00:00: mouth 2 [place] 00 (two) Medical times Branch daily. lidocaine 2020-10 Yes [id number] 10mL Take 10 mL Univers 2% viscous 1-09 by mouth ity o f 2 % 00:00: every 6 [place] solution 00 (six) Medical hours as Branch needed for Oral mucosal pain. sucralfate 2020-10 Yes [id number] 1000mg Take 10 mL Univers 100 mg/mL 1-09 by mouth 4 ity of suspension 00:00: (four) [place] 00 times Medical daily. Branch pantoprazol 2020-10 Yes [id number] 40mg Take 1 Univers e 40 mg EC 1-09 tablet by ity of tablet 00:00: mouth 2 [place] 00 (two) Medical times Branch daily. lidocaine 2020-10 Yes [id number] 10mL Take 10 mL Univers 2% viscous 1-09 by mouth ity o f 2 % 00:00: every 6 [place] solution 00 (six) Medical hours as Branch needed for Oral mucosal pain. sucralfate 2020-10 Yes [id number] 1000mg Take 10 mL Univers 100 mg/mL 1-09 by mouth 4 ity of suspension 00:00: (four) [place] 00 times Medical daily. Branch pantoprazol 2020-10 Yes [id number] 40mg Take 1 Univers e 40 mg EC 1-09 tablet by ity of tablet 00:00: mouth 2 [place] 00 (two) Medical times Branch daily. lidocaine 2020-10 Yes [id number] 10mL Take 10 mL Univers 2% viscous 1-09 by mouth ity o f 2 % 00:00: every 6 [place] solution 00 (six) Medical hours as Branch needed for Oral mucosal pain. levETIRAcet 2020-10 Yes Univer s am 500 mg 1-03 ity of tablet 00:00: [place] 00 Medical Branch divalproex 2020-10 Yes Univers 500 mg EC 1-03 ity of tablet 00:00: [place] 00 Medical Branch levETIRAcet 2020-10 Yes Univer s am 500 mg 1-03 ity of tablet 00:00: [facility] Branch divalproex 2020-10 Yes Univers 500 mg EC -03 ity of tablet 00:00: [facility] Branch levETIRAcet 2020-10 Yes Univer s am 500 mg -03 ity of tablet 00:00: [facility] Branch divalproex 2020-10 Yes Univers 500 mg EC - ity of tablet 00:00: [facility] Branch FLUoxetine 2020-10 Yes 10mg Take 10 mg U nivers 10 mg 0-22 by mouth ity of tablet 00:00: daily. [facility] Branch FLUoxetine 2020-10 Yes 10mg Take 10 mg U nivers 10 mg 0-22 by mouth ity of tablet 00:00: daily. [place] [facility] FLUoxetine 2020-10 Yes 10mg Take 10 mg U nivers 10 mg 0-22 by mouth ity of tablet 00:00: daily. [facility] Branch gabapentin 2020-10 Yes 300mg Take 300 Un oz 300 mg 0-21 mg by ity of capsule 00:00: mouth 3 (three) Medical times Branch daily. baclofen 10 2020-10 Yes TAKE ONE Un oz mg tablet 0-21 (1) ity of 00:00: TABLET(S) BY MOUTH Medical THREE Branch TIMES A DAY NEEDED. gabapentin 2020-10 Yes 300mg Take 300 Un oz 300 mg 0-21 mg by ity of capsule 00:00: mouth 3 (three) Medical times Branch daily. baclofen 10 2020-10 Yes TAKE ONE Un oz mg tablet 0-21 (1) ity of 00:00: TABLET(S) BY MOUTH Medical THREE Branch TIMES A DAY NEEDED. gabapentin 2020-10 Yes 300mg Take 300 Un oz 300 mg 0-21 mg by ity of capsule 00:00: mouth 3 (three) Medical times Branch daily. baclofen 10 2020-10 Yes TAKE ONE Un oz mg tablet 0-21 (1) ity of 00:00: TABLET(S) BY MOUTH Medical THREE Branch TIMES A DAY NEEDED. metoclopram Yes Univer s steven HCl 10 05-26 ity of mg tablet 00:00: [facility] Branch metoclopram Yes Univer s steven HCl 10 8- ity of mg tablet 00:00: Medical Branch [facility] 10 8-09 ity of mg tablet 00:00: [place] [facility] Branch ondansetron Yes [id number] 4mg Take 1 Univers (ZOFRAN 5-30 tablet by ity of ODT) 4 mg 00:00: mouth [place] disintegrat 00 every 8 Medic al ing tablet (eight) Branch hours as needed for Nausea and Vomiting (N/V). ondansetron Yes [id number] 4mg Take 1 Univers (ZOFRAN 5-30 tablet by ity of ODT) 4 mg 00:00: mouth [place] disintegrat 00 every 8 Medic al ing tablet (eight) Branch hours as needed for Nausea and Vomiting (N/V). ondansetron Yes [id number] 4mg Take 1 Univers (ZOFRAN 5-30 tablet by ity of ODT) 4 mg 00:00: mouth [place] disintegrat 00 every 8 Medic al ing tablet (eight) Branch hours as needed for Nausea and Vomiting (N/V). Vital Signs Vital Name Observation Time Observation Value Comments Source HEIGHT 2020-11-07 15:01:00 180.3 cm WEIGHT 2020-11-07 15:01:00 81.647 kg Systolic blood 2021-09-16 01:00:00 116 mm[Hg] Univer sity of pressure [facility] Diastolic blood 2021-09-16 01:00:00 53 mm[facility]Hg[facility] Heart rate 2021-09-16 01:00:00 65 /min [facility] Respiratory rate 2021-09-16 01:00:00 14 /min [facility] Oxygen saturation in 2021-09-16 01:00:00 99 /min [facility] Arterial blood by [facility] Pulse oximetry [place] Body temperature 2021-09-15 21:38:00 36.06 Abeba [facility] Body height 2021-09-15 21:38:00 175.3 cm [facility] Body weight 2021-09-15 21:38:00 86.637 kg [facility] BMI 2021-09-15 21:38:00 28.21 kg/m2 [facility] HEIGHT 2020-11-07 15:01:00 180.3 cm WEIGHT 2020-11-07 15:01:00 81.647 kg Procedures Procedure Date / Time Performed Performing Clinician [facility] e CBC WITH DIFF 2021-09-15 22:38:00 [facility] COMP. METABOLIC PANEL 2021-09-15 21:57:00 Susanne Roldan [facility] ([id number]) [facility] VALPROIC ACID, TOTAL 2021-09-15 21:57:00 Susanne Roldan [facility] LACTIC ACID WHOLE 2021-09-15 21:54:00 Susanne Roldan [facility] EXTERNAL PROVIDER 2021-09-09 06:01:00 Doctor Sam, No [facility] RECORDS Name [facility] Encounters Start End Encounter Admission Attending Care Care Encounter Source Date/Time Date/Time Type Type Clinicians Facility Department ID 2021-07-23 Inpatient ER JOSHUA, [facility] Neurology [id number] [facility] 07:45:15 [facility] 2020-11-07 Inpatient UR [facility] SLE Internal [id number] SLE 07:52:00 Charles NELSON 2020-07-08 Inpatient ER [place] [facility] [address] Neurology [id number] [facility] 08:39:03 [facility] 2021-09-15 2021-09-15 Emergency X JAMAR [facility] ERT [id number] Univers 15:37:00 20:00:00 SUSANNE velásquez [facility] 2021-09-15 2021-09-15 Emergency Jamar [facility] [id number] Univers 15:37:00 20:00:00 Susanne FAN 350.1.13.10 ity of [place] 4.2.7.2.686 [facility] [id number] [facility] 084 Branch 2021-09-09 2021-09-09 Orders Doctor RODRIGUEZ 1.2.840.114 [id number] Univers 00:00:00 00:00:00 Only UnassignedPARVIN 350.1.13.10 ity of [place] [facility] 4.2.7.2.686 Diaz as [id number] [facility] 009 Branch 2021-08-28 2021-08-28 Transition RUY Jalloh 1.2.840.114 [id number] Univers 00:00:00 00:00:00 of Care Barbara MCCAULEY 350.1.13.10 i ty of [place]2.686 [place] [phone] [facility] 403 Branch 2021-08-22 2021-08-27 Inpatient X MEME, [facility] [id number] Univers 14:14:00 18:00:00 SHANNON itdenny of [facility] 2021-03-16 2021-03-16 Emergency [facility] [id number] 01:37:00 03:38:00 Dee Fan 350.1.13.10 [place] 4.2.7.2.686 [place] [facility] [id number] [id number] 2020-12-12 2020-12-12 Orders Doctor RODRIGUEZ 1.2.840.114 [id number] 00:00:00 00:00:00 Only Unassigned, PARVIN 350.1.13.10 [place] [id number] [id number] [facility] 2020-11-30 2020-11-30 Telephone [facility] 1.2.840.114 [id number] 00:00:00 00:00:00 Boo Fan 350.1.13.10 [place] 4.2.7.2.686 Professio [id number] [address] 2020-10-31 2020-10-31 Telephone [facility] 1.2.840.114 [id number] 00:00:00 00:00:00 Boo Fan 350.1.13.10 [place] 4.2.7.2.686 Professio [id number] [address] 2020-09-06 2020-09-06 Orders Doctor RODRIGUEZ 1.2.840.114 [id number] 00:00:00 00:00:00 Only Unassigned, PARVIN 350.1.13.10 [place] [facility] 4.2.7.2.686 [id number] 2020-08-18 2020-08-18 Orders Doctor JENNIFER 1.2.840.114 [id number] 00:00:00 00:00:00 Only Unassigned, PARVIN 350.1.13.10 [place] [facility] 4.2.7.2.686 [id number] [id number] 2020-08-06 2020-08-14 Office Blayne [facility] 1.2.840.114 [id number] 08:52:45 13:22:47 Visit Boo Fan 350.1.13.10 [place] 4.2.7.2.686 Jorge [id number] nal 092 Building Results Test Description Test Time Test Comments Results Result Comments Source VALPROIC ACID, TOTAL 2021-09-15 23:29:56 Test Item Value Reference Range Interpretation Comme nts VALPROIC A (test code = 2219713194) 54 ug/mL 50-100 TUCKER (test code = TUCKER) Toxic Range: ?Greater than 100 ug/mL Lab Interpretation (test code = 24017-9) Normal [facility] WITH [id number] 22:55:09 Test Item Value Reference Range Interpretation Comments WBC (test code = See_Comment [Automated 2190-2) message] The sy stem which generated this result transmitted reference range : 4.20 - 10.70 10*3/?L. The reference range was not used to interpret this result as normal/abnormal . RBC (test code = See_Comment L [Automated 669-8) message] The sy stem which generated this result transmitted reference range : 4.26 - 5.52 10*6/?L. The reference range was not used to interpret this result as normal/abnormal . HGB (test code = 10.2 g/dL 12.2-16.4 L 718-7) HCT (test code = 33.0 % 38.4-49.3 L 4544-3) MCV (test code = 87.5 fL 81.7-95.6 787-2) MCH (test code = 27.1 pg 26.1-32.7 785-6) MCHC (test code = 30.9 g/dL 31.2-35.0 L 786-4) RDW-SD (test code = 45.4 fL 38.5-51.6 08120-3) RDW-CV (test code = 14.1 % 12.1-15.4 788-0) PLT (test code = See_Comment H [Automated 777-3) message] The sy stem which generated this result transmitted reference range : 150 - 328 10*3/ ?L. The reference r gerardo was not used to interpret this result as normal/abnormal . MPV (test code = 9.5 fL 9.8-13.0 L 65658-7) NRBC/100 WBC (test See_Comment [Automat ed code = 6551007824) message] The system which generated this result transmitted reference range : 0.0 - 10.0 /100 WBCs. The refer ence range was not u sed to interpret th is result as normal/abnormal . NRBC x10^3 (test code <0.01 See_Comment [Auto mated = 4461126703) message] The s ystem which generated this result transmitted reference range : 10*3/?L. The reference range was not used to interpret this result as normal/abnormal . GRAN MAT (NEUT) % 39.7 % (test code = 770-8) IMM GRAN % (test code 0.70 % = 0254387846) LYMPH % (test code = 41.5 % 736-9) MONO % (test code = 15.1 % 5905-5) EOS % (test code = 2.5 % 713-8) BASO % (test code = 0.5 % 706-2) GRAN MAT x10^3(ANC) 2.25 10*3/uL 1.99-6.95 (test code = 7356358480) IMM GRAN x10^3 (test 0.04 10*3/uL 0.00-0.06 code = 1984358759) LYMPH x10^3 (test code 2.36 10*3/uL 1.09-3.23 = 731-0) MONO x10^3 (test code 0.86 10*3/uL 0.36-1.02 = 742-7) EOS x10^3 (test code = 0.14 10*3/uL 0.06-0.53 711-2) BASO x10^3 (test code 0.03 10*3/uL 0.01-0.09 = 704-7) Lab Interpretation Abnormal (test code = 28730-5) [facility] ([id number])2021-09-15 22:28:20 Test Item Value Reference Range Interpretation Comments NA (test code = 136 mmol/L 135-145 0676780902) K (test code = 4.3 mmol/L 3.5-5.0 7605476760) CL (test code = 108 mmol/L 98-108 0793005317) CO2 TOTAL (test code = 26 mmol/L 23-31 5792033190) AGAP (test code = 2-16 8672500024) BUN (test code = 16 mg/dL 7-23 0370480384) GLUCOSE (test code = 86 mg/dL 70-110 4071364675) CREATININE (test code = 0.69 mg/dL 0.60-1.25 6840031776) TOTAL BILI (test code = 0.2 mg/dL 0.1-1.6 7201616442) CALCIUM (test code = 8.4 mg/dL 8.6-10.6 L 2143910513) T PROTEIN (test code = 6.0 g/dL 6.3-8.2 L 8282806495) ALBUMIN (test code = 3.4 g/dL 3.5-5.0 L 6389590290) ALK PHOS (test code = 70 U/L 34-122 8591478504) ALTv (test code = 14 U/L 5-50 1742-6) AST(SGOT) (test code = 23 U/L 13-40 3353383988) eGFR (test code = mL/min/1.73m2 2604049490) TUCKER (test code = TUCKER) Association of Glomerular Filtration Rate (GFR) and Staging of Kidney Disease* + --+ --+ ------+| GFR (mL/min/1.73 m2) ?| With Kidney Damage ?| ?Without Kidney Damage+ --------+ --------+ +| ?>90 ?| ?Stage one ?| ? Normal ?+ ---+ ---+ -------+| ?60-89 ?| ?Stage two ?| ? Decreased GFR ? + --+ --+ ------+| ?30-59 ?| ?Stage three ?| ? Stage three ? + --+ --+ ------+| ?15-29 ?| ?Stage four ? | ? Stage four ?+ ---+ ---+ -------+| ?<15 (or dialysis) ? ?| ?Stage five ? | ? Stage five ?+ ---+ ---+ -------+ *Each stage assumes the associated GFR level has been in effect for at least three months. ?Stages 1 to 5, with or without kidney disease, indicate chronic kidney disease. Notes: Determination of stages one and two (with eGFR >59mL/min/1.73 m2) requires estimation of kidney damage for at least three months as defined by structural or functional abnormalities of the kidney, manifested by either:Pathological abnormalities or Markers of kidney damage (including abnormalities in the composition of the blood or urine or abnormalities in imaging tests). Lab Interpretation Abnormal (test code = 66803-6) [facility] Whole [id number] 22:01:16 Test Item Value Reference Range Interpretation Comments LACTIC ACID (test code = 1.74 mmol/L 0.50-2.20 1553473267) Lab Interpretation (test code = Normal 09891-6) [facility] [id number] 14:50:00Surgical Pathology Report Case: [id number] Authorizing Provider: Kimberly Mann Collected: 11/09/2020 08:59 AM MD Светлана OrderingLocation: [address] Received: 11/11/2020 08:24 AM Service Pathologist: Anahi León MD Specimen: Gallb ladder This amendment is issued to correct a transcriptional error. A. GALLBLADDER, CHOLECYSTECTOMY: - CHRONIC CHOLECYSTITIS. Signing Pathologist Direct Phone Line: [phone] electronically signed by Anahi León MD on 11/13/2020 at 2:50 PM [id number] painGallbladderA. Received fresh, labeled with the patient's [...] 0.1-0.3 cm. No gross lesions are identified. Watch Crystal Edge Grinder sections are submitted.Section codeA1: Cystic duct margin (blue), en faceA2: Gallbladder wallChelsea CHRISTIAN Buitrago, LEO (ASCP)cmPerformed.[facility], Department of Pathology, [address] [place] [address], [facility], Department of Pathology, [address] [place] [address], [facility], Department of Pathology, [address] [place] [address], NZROEY [id number] 11:14:00Surgical Pathology Report Case: [id number] Authorizing Provider: Eleno Keane MD Collected: 11/07/2020 03:21 PM Ordering Location: [address] Received: 11/08/2020 08:02 AM Service Pathologist: [...] OR MALIGNANCY Signing Pathologist Direct Phone Line: [phone] signed by Yadira Gardner MD on 11/08/2020 at 3:25 PMB. GMS stain is pending and will be reported in an addendum.[id number] obstructionA. DuodenumB. Esophagus, distalA. Received informalin labeled with the patient's name, medical record number and "duodenum" and consists of 4 tansoft tissue fragments ranging 0.2-0.3 cm submitted in toto in A1.B. Received in formalin labeled with the patient's name, medical record number and "distal esophagus" and consists of 4 white soft tissue fragments ranging 0.1-0.2 cm submitted in toto in B1.CHRISTIAN Monroe PA ([facility])cmPerformed.The interpretation of this case included the use of immunohistochemistry or special stains.Control Slides Examined: In-house known positive controls were evaluated along with the test tissue. These control slides run alongside of the patients sample show appropriate staining. Internal positive and negative controls when available are evaluated Immunohistochemistry technical testing was performed at [facility], Pathology Laboratory where it was developed [...] qualified to perform high complexity clinical laboratory testing.BASIC METABOLIC [id number] 04:30:00 Test Item Value Reference Range Interpretation [...] S NOT APPLICABLE FOR DIALYSIS PATIEN TS. Resistance Welder ID - [id number] 04:30:00 Test Item Value Reference Range Interpretation Comments MAGNESIUM (BEAKER) (test code = 1.8 mg/dL 1.6-2.6 627) Resistance Welder ID - EDASIHEPATIC FUNCTION [id number] 04:30:00 Test Item Value Reference Range Interpretation [...] (test code = 26 U/L 6-55 347) Resistance Welder ID - EDASICBC W/PLT COUNT & AUTO [id number] 03:48:00 Test Item Value Reference Range Interpretation [...] 0-1 PERCENT (BEAKER) (test code = 2801) [id number] 05:11:00 Test Item Value Reference Range Interpretation Comments MAGNESIUM (BEAKER) (test code = 1.8 mg/dL 1.6-2.6 627) Resistance Welder ID - ADMINHEPATIC FUNCTION [id number] 05:11:00 Test Item Value Reference Range Interpretation [...] (test code = 29 U/L 6-55 347) Resistance Welder ID - ADMINBASIC METABOLIC [id number] 05:11:00 Test Item Value Reference Range Interpretation [...] S NOT APPLICABLE FOR DIALYSIS PATIEN TS. Resistance Welder ID - ADMINCBC W/PLT COUNT & AUTO [id number] 04:33:00 Test Item Value Reference Range Interpretation [...] 0-1 PERCENT (BEAKER) (test code = 2801) SARS-COV2/RT-PCR ([facility])2020-11-08 09:38:00 Test Item Value Reference Range Interpretation Comments SARS-COV2/RT-PCR (test Negative Not Detected, Negative, code = 8284156) See external report for linked test SARS-COV-2 PERFORMING LAB [facility] (test code = 6567722) Negative result for this test determines that [...] 564(g) of the Act.Fact Sheet for Healthcare Providers:https://www.[employer]/sites/default/files/product/documents/Fact_Shee l_PF_Iruhtfolv_Kdmv_ZUVN-LyC-2.pdfFact Sheet for Healthcare Patients:https://www.[employer]/sites/default/files/product/ documents/Dgmr_Wbbpm_Gnxugkqg_Sgey_MACD-EjC-5.pdfPerforming Laboratory:[facility], [place] [address]GZWFO METABOLIC PANEL 2020-11-08 04:42:00 Test Item Value Reference Range Interpretation [...] S NOT APPLICABLE FOR DIALYSIS PATIEN TS. Resistance Welder ID - DANA [id number] 04:42:00 Test Item Value Reference Range Interpretation Comments MAGNESIUM (BEAKER) (test code = 1.8 mg/dL 1.6-2.6 627) Resistance Welder ID Ramsey CORTEZ WHEPATIC FUNCTION [id number] 04:42:00 Test Item Value Reference Range Interpretation [...] (test code = 38 U/L 6-55 347) Resistance Welder ID Ramsey CORTEZ [id number] 04:42:00 Test Item Value Reference Range Interpretation Comments LIPASE (BEAKER) (test code = 749) 12 U/L 8-78 Resistance Welder ID Ramsey CORTEZ WPROTHROMBIN [id number] 04:35:00 Test Item Value Reference Range Interpretation [...] INR is2.5-3.5 for patients wiht mechanical heart valves.[id number] 04:35:00 Test Item Value Reference Range Interpretation Comments PARTIAL THROMBOPLASTIN TIME 28.4 seconds 22.5-36.0 (BEAKER) (test code = 760) CBC W/PLT COUNT & AUTO [id number] 03:57:00 Test Item Value Reference Range Interpretation [...] 0-1 PERCENT (BEAKER) (test code = 2801) [place], [id number] 16:06:13Reason for exam:->[facility]AND[facility] STEIN : 1980 Sex: MFluoroscopic unit utilized for a procedure performed in the OR. No interpretation was requested. Refer to the operative report for findings. Refer to PACS for patient radiation dose information.MR, BRAIN, WITHOUT [id number] 19:26:00Unlisted Reason for Exam - Click Yes and Enter Reason Below->YesUnlisted Reason for Exam->tingling/numbnessFINAL REPORT MR, BRAIN, WITHOUT CONTRAST, MR, MRA, BRAIN, WITHOUT CONTRAST, MR, MRA, NECK, WITHOUT IV CONTRAST INDICATION: Unlisted Reason for Examtingling/numbness TECHNIQUE: Multiplanar, multisequence MR imaging of the brain without intravenous contrast.MRA of the head utilizing 3-D exgk-uj-epgeuu technique, with 3-D reconstructions.MRA of the neck utilizing 2-D and 3-D jbzf-we-tdjzzs technique, with 3-D reconstructions. COMPARISON: None FINDINGS: MRI Brain:Intracranial: No intracranial hemorrhage. No restricted diffusion to suggest acute infarct. No mass effect. No hydroce [place]. Sinuses: No evidence of sinusitis. Mastoids are [...] Date/Time: 07/08/2020 19:26:58 MR, MRA, BRAIN, WITHOUT [id number] 19:26:00Unlisted Reason for Exam - Click Yes and Enter Reason Below->YesUnlisted Reason for Exam->tingling, numbnessFINAL REPORT MR, BRAIN, WITHOUT CONTRAST, MR, MRA, BRAIN, WITHOUT CONTRAST, MR, MRA, NECK, WITHOUT IV CONTRAST INDICATION: Unlisted Reason for Examtingling/numbness TECHNIQUE: Mul tiplanar, multisequence MR imaging of the brain without intravenous contrast.MRA of the head utilizing 3-D scbs-rr-wcrvza technique, with 3-D reconstructions.MRA of the neck utilizing 2-D and 3-D jruu-py-fpqzxd technique, with 3-D reconstructions. COMPARISON: None FINDINGS: [...] within the head and neck. Signed: Paloma Mcelroyeport Verified Date/Time: 07/08/2020 19:26:58 MR, MRA, NECK, WITHOUT IV [id number] 19:26:00Unlisted Reason for Exam - Click Yes and Enter Reason Below->YesUnlisted Reason for Exam->tingling, numbnessFINAL REPORT MR, BRAIN, WITHOUT CONTRAST, MR, MRA, BRAIN, WITHOUT CONTRAST, MR, MRA, NECK, WITHOUT IV CONTRAST INDICATION: Unlisted Reason for Examtingling/numbness TECHNIQUE: Multiplanar, multisequence MR imaging of the brain without intravenous contrast.MRA of the head utilizing 3-D zpzy-ji-zniofe technique, with 3-D reconstructions.MRA of the neck utilizing 2-D and 3-D ahaq-pn-ayhwmv technique, with 3-D reconstructions. COMPARISON: None FINDINGS: [...]
[2021-09-17 12:21] LABS: Absolute Lymphocytes (CBC) 2.2 K/uL (0.7-4.9); Basophils % 0.7 % (0-1.3); Hematocrit 35.2 % (39.6-49.0); Lymphocytes % 41.1 % (15.3-44.8); MPV 7.8 fL (7.6-11.3); Protime INR 0.9; RBC Red Blood Cell Count 4.11 M/uL (4.33-5.43)
[2021-09-17 12:43] LABS: ALT/SGPT 17 U/L (12-78); AST/SGOT 15 U/L (15-37); Albumin 3.1 g/dL (3.4-5.0); Alkaline Phosphatase 82 U/L (45-117); BUN Blood Urea Nitrogen 13 mg/dL (7-18); Bicarbonate 26 mmol/L (21-32); Bilirubin Direct < 0.1 mg/dL (0-0.2); Bilirubin Total 0.1 mg/dL (0.2-1.0); Glucose Level 109 mg/dL (74-106); Magnesium 2.3 mg/dL (1.8-2.4); NT PRO-BNP 55 pg/mL (<125); Potassium 3.8 mmol/L (3.5-5.1); Protein, Total 6.8 g/dL (6.4-8.2); Sodium Level 141 mmol/L (136-145); Troponin (Emerg Dept Use Only) < 0.02 ng/mL (0.0-0.045); Valproic Acid (Depakene) Level 53.2 ug/mL (50-100)
--- NOTE | 2021-09-17 12:43 | RAD REPORT ---
EXAM DESCRIPTION: CT - Head Brain Wo Cont - 09/17/2021 12:14 pm CLINICAL HISTORY: SEIZURE COMPARISON: Head angio dated 08/13/2021; Ct Stroke Brain Wo Cont dated 08/13/2021 TECHNIQUE: All CT scans are performed using dose optimization technique as appropriate and may inclu de automated exposure control or mA/KV adjustment according to patient size. FINDINGS: No intracranial hemorrhage, hydrocephalus or extra-axial fluid collection.No areas of brai n edema or evidence of midline shift. The paranasal sinuses and mastoids are clear. The calvarium is intact. IMPRESSION: No acute intracranial abnormality.
--- NOTE | 2021-09-17 12:44 | RAD REPORT ---
EXAM DESCRIPTION: RAD - Chest Single View - 09/17/2021 12:22 pm CLINICAL HISTORY: COUGH COMPARISON: Chest Single View dated 08/13/2021; Chest Single View dated 05/24/2021; Abdomen 1 View ([facility]) dated 04/01/2021; Chest Single View dated 11/04/2020 FINDINGS: Lines: None. Lungs: No evidence of edema or pneumonia. Pleural: No significant pleural effusions or pneumothorax. Cardiac: Borderline enlarged Bones: No acute fractures. Other: IMPRESSION: No acute cardiopulmonary disease. Aeration is improved compared with 08/13/2021.
[2021-09-17] MEDS ORDERED: LORazepam 2 MG/ML VIAL ONE (12:58)
--- NOTE | 2021-09-17 13:05 | ER ---
Nurse's Notes [facility] Name: Ta Quezada Age: 41 yrs Sex: Male : 1980 Arrival Date: 09/17/2021 Time: 11:27 Bed 2 Private MD: Imtiaz Heaton Diagnosis: Epileptic seizures related to external causes, not intractable, without status epilepticus Presentation: 09/17 11:39 Chief complaint: Patient states: feeling dizzy, blurred vision and headache. Denies vg1 nausea. Spouse and/or significant other states: Was at Dr Earl's office when seizure began. Pts right arm began to twitch and left and right eye began to 'twitch', LOC for about two minutes. Denies hitting head. Pt spouse stated pt fell four times yesterday and one of those times hit head but denies LOC yesterday. Coronavirus screen: Vaccine status: Patient reports being unvaccinated. Client denies travel out of the [place] in the last 14 days. Ebola Screen: Patient negative for fever greater than or equal to 101.5 degrees Fahrenheit, and additional compatible Ebola Virus Disease symptoms. Initial Sepsis Screen: Does the patient meet any 2 criteria? No. Patient's initial sepsis screen is negative. Does the patient have a suspected source of infection? No. Patient's initial sepsis screen is negative. Risk Assessment: Do you want to hurt yourself or someone else? Patient reports no desire to harm self or others. Onset of symptoms was September 17, 2021. 11:39 Method Of Arrival: Wheelchair vg1 11:39 Acuity: RENE 3 vg1 Triage Assessment: 11:44 General: Appears in no apparent distress. uncomfortable, Behavior is cooperative. Pain: vg1 Complains of pain in Right arm, head, and back. Neuro: Level of Consciousness is awake, alert, obeys commands, Oriented to person, place, time, situation, [employer] Press Feeder are weak on left Weakness Speech is normal, Facial symmetry appears normal. Historical: - Allergies: 11:44 No Known Allergies; vg1 - Home Meds: 11:44 fluoxetine 10 mg Oral cap once daily [Active]; Prilosec 40 mg Oral cpDR 1 cap once vg1 daily [Active]; Vitamin D 500 units daily Oral [Active]; Keppra Oral [Active]; Depakote Oral [Active]; - PMHx: 11:44 Depression; GERD; Hypertension; Kidney stones; TIA; Seizure; vg1 - PSHx: 11:44 Cholecystectomy; vg1 - Immunization history:: Client reports having NOT received the Covid vaccine. - Social history:: Smoking status: Patient reports the use of cigarette tobacco products, smokes one-half pack cigarettes per day. - Family history:: not pertinent. Screenin:47 Abuse screen: Denies threats or abuse. Nutritional screening: No deficits noted. tw2 Tuberculosis screening: No symptoms or risk factors identified. Fall Risk None identified. Assessment: 11:55 General: Appears in no apparent distress. Neuro: Level of Consciousness is awake, obeys tw2 commands. Cardiovascular: Capillary refill. Respiratory: Airway is patent Respiratory effort is even, unlabored, Respiratory pattern is. Musculoskeletal: Range of motion: intact in all extremities. 13:34 Reassessment: Patient appears in no apparent distress at this time. No changes from tw2 previously documented assessment. Patient and/or family updated on plan of care and expected duration. Pain level reassessed. pt appears drowsy at this time. arousable when name called. Vital Signs: 11:39 BP 106 / 70; Pulse 69; Resp 16; Temp 98.1; Pulse Ox 98% ; Weight 90.72 kg; Height 5 ft. vg1 11 in. (180.34 cm); Pain 7/10; 12:30 BP 112 / 64; Pulse 59; Resp 17; Pulse Ox 97% on R/A; tw2 13:33 BP 112 / 65; Pulse 60; Resp 14; Pulse Ox 99% on R/A; tw2 14:30 BP 111 / 67; Pulse 60; Resp 20; Pulse Ox 94% on R/A; jg9 15:30 BP 106 / 62; Pulse 64; Resp 16; Pulse Ox 98% on R/A; jg9 11:39 Body Mass Index 27.89 (90.72 kg, 180.34 cm) vg1 Karie Coma Score: 11:44 Eye Response: spontaneous(4). Verbal Response: oriented(5). Motor Response: obeys vg1 commands(6). Total: 15. ED Course: 11:27 Patient arrived in ED. as 11:27 Imtiaz Heaton MD is Private Physician. as 11:44 Triage completed. vg1 11:44 Arm band placed on. vg1 11:55 Bruno Rivera MD is Attending Physician. sarah 11:55 Seizure precautions initiated. tw2 12:00 Inserted saline lock: 18 gauge in left antecubital area, using aseptic technique. ss Patient maintains SpO2 saturation greater than 95% on room air. 12:10 Inserted saline lock: 20 gauge in right wrist, using aseptic technique. ss 12:14 CT Head Brain wo Cont In Process Unspecified. EDMS 12:21 XRAY Chest (1 view) In Process Unspecified. EDMS 12:30 Alexandra Miles RN is Primary Nurse. tw2 12:30 SARS-COV-2 RT PCR (Document "Date of Onset" if Symptomatic) Sent. tw2 13:04 Imtiaz Heaton MD is Referral Physician. sarah 13:04 Pito Earl MD is Referral Physician. sarah 13:18 Awaiting: medication from pharmacy PRIOR to discharge. tw2 13:29 IV discontinued, intact, bleeding controlled, No redness/swelling at site. Pressure tw2 dressing applied, 18 g LEFT ac. infiltration noted. 14:17 Resting quietly. Pt visited by . jg9 14:42 Awaiting: awaiting completion of depakote, \\T\\1hour. jg9 15:53 IV discontinued, Patient discharged home, IV removed, site wnl. jg9 15:55 No provider procedures requiring assistance completed. jg9 Administered Medications: 13:28 Not Given (Duplicate Order): Ativan (LORazepam) 2 mg IVP once tw2 13:29 Drug: NS 0.9% 1000 ml Route: IV; Rate: 1 bolus; Site: right wrist; tw2 14:30 Follow up: IV Status: Completed infusion; IV converted to saline lock jg9 13:29 Drug: Ativan (LORazepam) 1 mg Route: IVP; Site: right wrist; tw2 14:58 Follow up: Response: No adverse reaction tw2 13:59 Drug: Keppra (levETIRAcetam) 1000 mg Route: IV; Rate: per protocol; Site: right wrist; tw2 14:16 Follow up: IV Status: Completed infusion; IV converted to saline lock jg9 14:40 Drug: Depacon (valproic acid) 500 mg Volume: 5 ml; Route: IV; Rate: calculated rate; jg9 Site: right wrist; 15:43 Follow up: IV Status: Completed infusion; IV converted to saline lock; IV Intake: 105ml jg9 Intake: 15:43 IV: 105ml; Total: 105ml. jg9 Outcome: 13:04 Discharge ordered by MD. smiht 15:52 Discharged to home via wheelchair, with significant other, VSS, patient alert/oriented jg9 in no distress. 15:54 Discharge instructions given to patient, significant other, Instructed on discharge jg9 instructions, follow up and referral plans. medication usage, Demonstrated understanding of instructions, follow-up care, Prescriptions given X 2. 15:55 Condition: stable jg9 15:57 Patient left the ED. jg9 Signatures: Dispatcher [employer] EDBruno Galicia MD MD cha Martinez, Amelia as Smirch, Shelby, RN RN ss Alexandra Miles RN RN tw2 Tiffany Fowler, RN RN vg1 Ayala Nolan jg9
--- NOTE | 2021-09-17 13:06 | EDPHYS ---
Physician Documentation [facility] Name: Ta Quezada Age: 41 yrs Sex: Male : 1980 Arrival Date: 09/17/2021 Time: 11:27 Bed 2 Private MD: Imtiaz Heaton ED Physician Bruno Rivera HPI: 09/17 13:00 This 41 yrs old Male presents to ER via Wheelchair with complaints of Seizure.sarah 13:00 The patient presents after having a single isolated seizure, that lasted 45 second(s). sarah Character of seizure(s): Loss of consciousness: the patient experienced loss of consciousness, Motor activity: generalized. Seizure onset: just prior to arrival. Context: the seizure(s) was witnessed, by family. Seizure Hx: Last seizure: The patient's last seizure "not sure". Associated injury: The patient did not suffer any apparent associated injury. Current symptoms: confusion. The patient has not experienced similar symptoms in the past. Historical: - Allergies: 11:44 No Known Allergies; vg1 - Home Meds: 11:44 fluoxetine 10 mg Oral cap once daily [Active]; Prilosec 40 mg Oral cpDR 1 cap once vg1 daily [Active]; Vitamin D 500 units daily Oral [Active]; Keppra Oral [Active]; Depakote Oral [Active]; - PMHx: 11:44 Depression; GERD; Hypertension; Kidney stones; TIA; Seizure; vg1 - PSHx: 11:44 Cholecystectomy; vg1 - Immunization history:: Client reports having NOT received the Covid vaccine. - Social history:: Smoking status: Patient reports the use of cigarette tobacco products, smokes one-half pack cigarettes per day. - Family history:: not pertinent. ROS: 13:00 Constitutional: Negative for fever, chills, and weight loss, Eyes: Negative for injury, sarah pain, redness, and discharge, ENT: Negative for injury, pain, and discharge, Neck: Negative for injury, pain, and swelling, Cardiovascular: Negative for chest pain, palpitations, and edema, Respiratory: Negative for shortness of breath, cough, wheezing, and pleuritic chest pain, Abdomen/GI: Negative for abdominal pain, nausea, vomiting, diarrhea, and constipation, Back: Negative for injury and pain, : Negative for injury, bleeding, discharge, and swelling, MS/Extremity: Negative for injury and deformity, Skin: Negative for injury, rash, and discoloration, Psych: Negative for depression, anxiety, suicide ideation, homicidal ideation, and hallucinations, Allergy/Immunology: Negative for hives, rash, and allergies, Endocrine: Negative for neck swelling, polydipsia, polyuria, polyphagia, and marked weight changes. 13:00 Neuro: Positive for seizure activity. Exam: 13:00 Constitutional: This is a well developed, well nourished patient who is awake, alert, sarah and in no acute distress. Head/Face: Normocephalic, atraumatic. Eyes: Pupils equal round and reactive to light, extra-ocular motions intact. Lids and lashes normal. Conjunctiva and sclera are non-icteric and not injected. Cornea within normal limits. Periorbital areas with no swelling, redness, or edema. ENT: Nares patent. No nasal discharge, no septal abnormalities noted. Tympanic membranes are normal and external auditory canals are clear. Oropharynx with no redness, swelling, or masses, exudates, or evidence of obstruction, uvula midline. Mucous membranes moist. Neck: Trachea midline, no thyromegaly or masses palpated, and no cervical lymphadenopathy. Supple, full range of motion without nuchal rigidity, or vertebral point tenderness. No Meningismus. Chest/axilla: Normal chest wall appearance and motion. Nontender with no deformity. No lesions are appreciated. Cardiovascular: Regular rate and rhythm with a normal S1 and S2. No gallops, murmurs, or rubs. Normal PMI, no JVD. No pulse deficits. Respiratory: Lungs have equal breath sounds bilaterally, clear to auscultation and percussion. No rales, rhonchi or wheezes noted. No increased work of breathing, no retractions or nasal flaring. Abdomen/GI: Soft, non-tender, with normal bowel sounds. No distension or tympany. No guarding or rebound. No evidence of tenderness throughout. Back: No spinal tenderness. No costovertebral tenderness. Full range of motion. Skin: Warm, dry with normal turgor. Normal color with no rashes, no lesions, and no evidence of cellulitis. MS/ Extremity: Pulses equal, no cyanosis. Neurovascular intact. Full, normal range of motion. Neuro: Awake and alert, GCS 15, oriented to person, place, time, and situation. Cranial nerves II-XII grossly intact. Motor strength 5/5 in all extremities. Sensory grossly intact. Cerebellar exam normal. Normal gait. Psych: Awake, alert, with orientation to person, place and time. Behavior, mood, and affect are within normal limits. 13:28 ECG was reviewed by the Attending Physician. [facility] Vital Signs: 11:39 BP 106 / 70; Pulse 69; Resp 16; Temp 98.1; Pulse Ox 98% ; Weight 90.72 kg; Height 5 ft. vg1 11 in. (180.34 cm); Pain 7/10; 12:30 BP 112 / 64; Pulse 59; Resp 17; Pulse Ox 97% on R/A; tw2 13:33 BP 112 / 65; Pulse 60; Resp 14; Pulse Ox 99% on R/A; tw2 14:30 BP 111 / 67; Pulse 60; Resp 20; Pulse Ox 94% on R/A; jg9 15:30 BP 106 / 62; Pulse 64; Resp 16; Pulse Ox 98% on R/A; jg9 11:39 Body Mass Index 27.89 (90.72 kg, 180.34 cm) vg1 Karie Coma Score: 11:44 Eye Response: spontaneous(4). Verbal Response: oriented(5). Motor Response: obeys vg1 commands(6). Total: 15. MDM: 11:55 Patient medically screened. [facility] 13:05 Differential diagnosis: drug overdose, cardiac arrhythmia, seizure. Data reviewed: [facility] vital signs, nurses notes, lab test result(s), EKG, radiologic studies, CT scan. Data interpreted: teletypesetter monitor: rate is 69 beats/min, Pulse oximetry: on room air is 98 %. Test interpretation: by ED physician or midlevel provider: ECG, plain radiologic studies. Counseling: I had a detailed discussion with the patient and/or guardian regarding: the historical points, exam findings, and any diagnostic results supporting the discharge/admit diagnosis, lab results, radiology results, the need for outpatient follow up, for definitive care, an cake cutter machine, a neurologist. 13:06 Physician consultation: Pito Earl MD regarding patient's condition, need to [facility] evaluate the patient as soon as possible, outpatient follow-up, in 2-3 days, and will see patient in office. 12 11:56 Order name: Basic Metabolic Panel; Complete Time: 12:59 [facility] 09/17 11:56 Order name: CBC with Diff; Complete Time: 12:59 [facility] 09/17 11:56 Order name: LFT's; Complete Time: 12:59 [facility] 09/17 11:56 Order name: Magnesium; Complete Time: 12:59 [facility] 09/17 11:56 Order name: NT PRO-BNP; Complete Time: 12:59 [facility] 09/17 11:56 Order name: PT-INR; Complete Time: 12:59 [facility] 09/17 11:56 Order name: Troponin (emerg Dept Use Only); Complete Time: 12:59 [facility] 09/17 11:56 Order name: XRAY Chest (1 view); Complete Time: 12:59 [facility] 09/17 11:56 Order name: Depakote; Complete Time: 12:59 [facility] 09/17 11:56 Order name: CT Head Brain wo Cont; Complete Time: 12:59 [facility] 09/17 11:57 Order name: SARS-COV-2 RT PCR (Document "Date of Onset" if Symptomatic) [facility] 09/17 12:26 Order name: Urine Drug Screen 09/17 15:15 Order name: Urine Dipstick-Ancillary EDAL 09/17 11:56 Order name: EKG; Complete Time: 11:57 [facility] 09/17 11:56 Order name: Cardiac monitoring; Complete Time: 12:06 [facility] 09/17 11:56 Order name: EKG - Nurse/Tech; Complete Time: 13:29 [facility] 09/17 11:56 Order name: IV Saline Lock; Complete Time: 12:06 [facility] 09/17 11:56 Order name: Labs collected and sent; Complete Time: 12:51 [facility] 09/17 11:56 Order name: O2 Per Protocol; Complete Time: 12:51 [facility] 09/17 11:56 Order name: O2 Sat Monitoring; Complete Time: 12:51 [facility] 09/17 11:56 Order name: Seizure Precautions; Complete Time: 12:06 [facility] 09/17 12:59 Order name: Urine Dipstick-Ancillary (obtain specimen); Complete Time: 15:57 [facility] EC:28 Rate is 51 beats/min. Rhythm is regular. QRS [place] is Normal. [place] interval is normal. QRS sarah interval is normal. QT interval is normal. No Q waves. T waves are Normal. No ST changes noted. Clinical impression: Normal ECG and Sinus bradycardia. Interpreted by me. Reviewed by me. Administered Medications: 13:28 Not Given (Duplicate Order): Ativan (LORazepam) 2 mg IVP once tw2 13:29 Drug: NS 0.9% 1000 ml Route: IV; Rate: 1 bolus; Site: right wrist; tw2 14:30 Follow up: IV Status: Completed infusion; IV converted to saline lock jg9 13:29 Drug: Ativan (LORazepam) 1 mg Route: IVP; Site: right wrist; tw2 14:58 Follow up: Response: No adverse reaction tw2 13:59 Drug: Keppra (levETIRAcetam) 1000 mg Route: IV; Rate: per protocol; Site: right wrist; tw2 14:16 Follow up: IV Status: Completed infusion; IV converted to saline lock jg9 14:40 Drug: Depacon (valproic acid) 500 mg Volume: 5 ml; Route: IV; Rate: calculated rate; jg9 Site: right wrist; 15:43 Follow up: IV Status: Completed infusion; IV converted to saline lock; IV Intake: 105ml jg9 Disposition Summary: 09/17/21 13:04 Discharge Ordered Location: Home sarah Problem: new sarah Symptoms: have improved sarah Condition: Stable sarah Diagnosis - Epileptic seizures related to external causes, not intractable, without status sarah epilepticus Followup: sarah - With: Imtiaz Heaton MD - When: 2 - 3 days - Reason: Recheck today's complaints, Continuance of care, Re-evaluation by your physician Followup: sarah - With: Pito Earl MD - When: 2 - 3 days - Reason: Recheck today's complaints, Continuance of care, Re-evaluation by your physician Discharge Instructions: - Discharge Summary Sheet sarah - Seizure, Adult sarah - Seizure, Adult, Teaf-hy-Jasy sarah Forms: - Medication Reconciliation Form sarah - Thank You Letter sarah - Antibiotic Education sarah - Prescription Opioid Use sarah Prescriptions: - Depakote 500 mg Oral Tablet - take 1 tablet by ORAL route every 12 hours; 60 tablet; Refills: 0, Product sarah Selection Permitted - Keppra 750 mg Oral Tablet - take 1 tablet by ORAL route every 12 hours; 20 tablet; Refills: 0, Product sarah Selection Permitted Signatures: Dispatcher [employer] BREA Rivera, Bruno, MD MD sarah Miles, Alexandra, RN RN tw2 Tiffany Fowler RN RN vg1 Ayala Nolan jg9
[2021-09-17] MEDS ORDERED: NA CHLORIDE 0.9% 1,000 ML ONE (13:15)
[2021-09-17] MEDS ORDERED: levETIRAcetam 1,000 MG in NA CHLORIDE 0.9% 100 ML IV ONE (14:00)
[2021-09-17] MEDS ORDERED: VALPROATE SODIUM INJ 500 MG in NA CHLORIDE 0.9% 100 ML IV ONE (14:00)
[2021-09-17 15:15] LABS: Urine Blood Negative (Negative); Urine Glucose Negative (Negative); Urine Protein Negative (Negative); Urine pH 6.5 (5.0-7.0)
[2021-09-17 16:10] VITALS: TEMP 98.1
[2021-09-17 16:17] VITALS: BP 106/62; O2SAT 98
[2021-09-17 17:30] LABS: Barbiturates NEGATIVE (NEGATIVE); Benzodiazepines NEGATIVE (NEGATIVE); Cocaine NEGATIVE (NEGATIVE); METHAMPHETAM NEGATIVE (NEGATIVE); Methadone NEGATIVE (NEGATIVE); Opiates NEGATIVE (NEGATIVE); Phencyclidine NEGATIVE (NEGATIVE); THC Cannibis POSITIVE (NEGATIVE)
== END 2021-09-17 15:57 | disposition home or self-care (01) ==
LOC: ER 11:25
DX: G40.509 Epileptic seizures related to external causes, not intractable, without status epilepticus (principal); I10 Essential (primary) hypertension; F32.A Depression, unspecified; F17.210 Nicotine dependence, cigarettes, uncomplicated; Z20.822 Contact with and (suspected) exposure to COVID-19
CPT/HCPCS: 96365; 96367; 96361; 93005; 85025; 80048; 36415; 83735; 85610; 80076; 80164; 81003; 84484; 83880; 80307; 70450; 71045; 96375; 99284; U0003; J1953; J7030

== ENCOUNTER 2022-01-14 17:00 | Inpatient (IN) | payer OTHER ==
--- OUTSIDE RECORDS SUMMARY | 2022-01-14 17:04 | XMS REPORT | Continuity of Care Document ---
:1980 Author Organization [facility] t Address [address] [place] [address] Dr. Salmeron. [address] [place] [address] Care Team Providers Name Role Phone Neil AGEE JR Primary Care Physician Unavailable ROCHELLE LEWIS Attending Clinician Unavailable VINCE Attending [...] Date Expiration Date S antonia RESTREPOR FROM [id number] 2021 [facility] 00:00:00 Problems Condition Condition Condition Status Onset [...] Branch Acute Acute Disease Active 2020-10 Overview: Charla s blood loss blood loss 1-05 Formattin ity of anemia anemia 00:00: g of this [place] 00 note Medical might be Branch different from the original. Added automatic ally from request for surgery [id number] Allergies, Adverse Reactions, Alerts Allergy Allergy Status Severity Reaction(s) Onset Inactive Treating Comm ents Source Name Type Date Date Clinician NO KNOWN Allergy Active [facility] ALLERGIE S NO KNOWN Drug Active Univers ALLERGIE Class ity of S [facility] Social History Social Habit Start Date Stop Date Quantity Comments Source Exposure to Not sure University of SARS-CoV-2 (event) [facility] History of tobacco Cigarette Smoker University of use [facility] Tobacco Comment 2021-08-22 2021-08-22 stopped smoking Univ ersity of 00:00:00 00:00:00 last week [facility] Cigarettes smoked 2020-08-06 2020-08-06 Univers ity of current (pack per 00:00:00 00:00:00 ) - Reported Branch Tobacco use and 2020-08-06 2020-08-06 Never used Universit y of exposure 00:00:00 00:00:00 [facility] Sex Ass[birth year] At [birth year] Universit y of 00:00:00 00:00:00 [facility] Smoking Status Start Date Stop Date Source Current every day smoker 2020-08-06 00:00:00 Uni versity of [facility] Medications Ordered Filled Start Stop Current Ordering Indication Dosage Frequency Signature Comments Components Source Medication Medication Date Date Medication? Clinician (SIG) Name Name divalproex 2020-10- No 250mg 250 mg, Un oz ER 11-16 Oral, ity of (DEPAKOTE 00:45: 01:00 ONCE, [...] 1 dose, On 09/15/21 at 1645, ELEONORA pantoprazol 2020-10 Yes [id number] 40mg Take 1 Univers e 40 mg EC 1-09 tablet by ity of tablet 00:00: mouth 2 [place] 00 (two) Medical times Branch daily. lidocaine 2020-10 Yes [id number] 10mL Take 10 mL Univers 2% viscous 1-09 by mouth ity o f 2 % 00:00: every 6 [place] solution 00 (six) Medical hours as Branch needed for Oral mucosal pain. sucralfate 2020-10 Yes [id number] 1000mg Take 10 mL Univers 100 mg/mL 1-09 by mouth 4 ity of suspension 00:00: (four) [place] 00 times Medical daily. Branch pantoprazol 2020-10 Yes [id number] 40mg Take 1 Univers e 40 mg EC 1-09 tablet by ity of tablet 00:00: mouth 2 [place] 00 (two) Medical times Branch daily. lidocaine 2020-10 Yes [id number] 10mL Take 10 mL Univers 2% viscous 1-09 by mouth ity o f 2 % 00:00: every 6 [place] solution 00 (six) Medical hours as Branch needed for Oral mucosal pain. sucralfate 2020-10 Yes [id number] 1000mg Take 10 mL Univers 100 mg/mL 1-09 by mouth 4 ity of suspension 00:00: (four) [place] 00 times Medical daily. Branch pantoprazol 2020-10 Yes [id number] 40mg Take 1 Univers e 40 mg EC 1-09 tablet by ity of tablet 00:00: mouth 2 [place] 00 (two) Medical times Branch daily. lidocaine 2020-10 Yes [id number] 10mL Take 10 mL Univers 2% viscous 1-09 by mouth ity o f 2 % 00:00: every 6 [place] solution 00 (six) Medical hours as Branch needed for Oral mucosal pain. sucralfate 2020-10 Yes [id number] 1000mg Take 10 mL Univers 100 mg/mL 1-09 by mouth 4 ity of suspension 00:00: (four) [place] 00 times Medical daily. Branch levETIRAcet 2020-10 Yes Univer s am 500 mg 1-03 ity of tablet 00:00: [place] 00 Medical Branch divalproex 2020-10 Yes Univers 500 mg EC 1-03 ity of tablet 00:00: [place] 00 Medical Branch levETIRAcet 2020-10 Yes Univer s am 500 mg 1-03 ity of tablet 00:00: [place] 00 Medical Branch divalproex 2020-10 Yes Univers 500 mg EC 1-03 ity of tablet 00:00: [facility] Branch levETIRAcet 2020-10 Yes Univer s am 500 mg 1-03 ity of tablet 00:00: [facility] Branch divalproex 2020-10 Yes Univers 500 mg EC 1-03 ity of tablet 00:00: [facility] FLUoxetine 2020-10 Yes 10mg Take 10 mg U nivers 10 mg 0-22 by mouth ity of tablet 00:00: daily. [place] [facility] FLUoxetine 2020-10 Yes 10mg Take 10 mg U nivers 10 mg 0-22 by mouth ity of tablet 00:00: daily. [place] [facility] FLUoxetine 2020-10 Yes 10mg Take 10 mg U nivers 10 mg 0-22 by mouth ity of tablet 00:00: daily. [place] [facility] gabapentin 2020-10 Yes 300mg Take 300 Un oz 300 mg 0-21 mg by ity of capsule 00:00: mouth 3 ([facility]) Medical times Shepherd daily. baclofen 10 2020-10 Yes TAKE ONE Un oz mg tablet 0-21 (1) ity of 00:00: TABLET(S) BY [facility] Medical THREE Branch TIMES A DAY NEEDED. gabapentin 2020-10 Yes 300mg Take 300 Un oz 300 mg 0-21 mg by ity of capsule 00:00: mouth 3 [place] ([facility]) Medical times Branch daily. baclofen 10 2020-10 Yes TAKE ONE Un oz mg tablet 0-21 (1) ity of 00:00: TABLET(S) BY [facility] Medical THREE Branch TIMES A DAY NEEDED. gabapentin 2020-10 Yes 300mg Take 300 Un oz 300 mg 0-21 mg by ity of capsule 00:00: mouth 3 (three) Medical times Branch daily. baclofen 10 2020-10 Yes TAKE ONE Un oz mg tablet 0-21 (1) ity of 00:00: TABLET(S) BY MOUTH Medical THREE Branch TIMES A DAY NEEDED. metoclopram Yes Univer s steven HCl 10 8-09 ity of mg tablet 00:00: [facility] metoclopram Yes Univer s steven HCl 10 8-09 ity of mg tablet 00:00: Medical Branch metoclopram Yes Charla s steven HCl 10 05-26 ity of mg tablet 00:00: [place] [facility] ondansetron Yes [id number] 4mg Take 1 Univers (ZOFRAN 5-30 tablet by ity of ODT) 4 mg 00:00: mouth [place] disintegrat 00 every 8 Medic al ing tablet (eight) Branch hours as needed for Nausea and Vomiting (N/V). ondansetron Yes [id number] 4mg Take 1 Univers (ZOFRAN 5-30 tablet by ity of ODT) 4 mg 00:00: mouth [place] disintegrat 00 every 8 Medic al ing tablet (eight) Branch hours as needed for Nausea and Vomiting (N/V). ondansetron Yes [id number] 4mg Take 1 Univers (ZOFRAN 5-30 tablet by ity of ODT) 4 mg 00:00: mouth [place] disintegrat 00 every 8 Medic al ing tablet (eight) Branch hours as needed for Nausea and Vomiting (N/V). Vital Signs Vital Name Observation Time Observation Value Comments Source HEIGHT 2020-11-07 15:01:00 180.3 cm WEIGHT 2020-11-07 15:01:00 81.647 kg Heart rate 2021-09-16 01:00:00 65 /min [facility] Respiratory rate 2021-09-16 01:00:00 14 /min [facility] Oxygen saturation in 2021-09-16 01:00:00 99 /min [facility] Arterial blood by [facility] Pulse oximetry Branch Systolic blood 2021-09-16 01:00:00 116 mm[Hg] Charla sity of [facility] Diastolic blood 2021-09-16 01:00:00 53 mm[Hg] Francoe [facility] Body temperature 2021-09-15 21:38:[address] [facility] Body height 2021-09-15 21:38:00 175.3 cm [facility] Body weight 2021-09-15 21:38:00 86.637 kg [facility] BMI 2021-09-15 21:38:00 28.21 kg/m2 [facility] HEIGHT 2020-11-07 15:01:00 180.3 cm WEIGHT 2020-11-07 15:01:00 81.647 kg Procedures Procedure Date / Time Performed Performing Clinician [facility] e CBC WITH DIFF 2021-09-15 22:38:00 Susanne [facility] COMP. METABOLIC PANEL 2021-09-15 21:57:00 Susanne Roldan [facility] ([id number]) [facility] VALPROIC ACID, TOTAL 2021-09-15 21:57:[address] [facility] LACTIC ACID WHOLE 2021-09-15 21:54:00 Susanne Roldan [facility] BLOOD [facility] EXTERNAL PROVIDER 2021-09-09 06:01:00 Doctor Sam, No [facility] RECORDS Name [facility] Encounters Start End Encounter Admission Attending Care Care Encounter Source Date/Time Date/Time Type Type Clinicians Facility Department ID 2021-07-23 Inpatient ER JOSHUA, [facility] Neurology [id number] [facility] 07:45:15 [facility] 2020-11-07 Inpatient UR [facility] Internal [id number] SLE 07:52:00 Charles NELSON 2020-07-08 Inpatient ER JOSHUA, [facility] Neurology [id number] [facility] 08:39:03 [facility] 2021-09-15 2021-09-15 Emergency X JAMAR [facility] ERT [id number] Univers 15:37:00 20:00:00 SUSANNE velásquez [facility] 2021-09-15 2021-09-15 [facility] 1.2.840.114 [id number] Univers 15:37:00 20:00:00 Susanne FAN 350.1.13.10 ity of [place] 4.2.7.2.686 [facility] [id number] [facility] 084 Branch 2021-09-09 2021-09-09 Orders Doctor RODRIGUEZ 1.2.840.114 [id number] Univers 00:00:00 00:00:00 Only Unassigned, PARVIN 350.1.13.[address] [facility] 4.2.7.2.686 Diaz [id number] [facility] 009 Branch 2021-08-28 2021-08-28 Transition RUY Jalloh 1.2.840.114 [id number] Univers 00:00:00 00:00:00 of Care Barbara SULLIVANY 350.1.13.10 i ty of AMAIRANI 4.2.7.2.686 Alexander sun [id number] [facility] 403 Branch 2021-08-22 2021-08-27 Inpatient X MEME, [facility] [id number] [facility] 14:14:00 18:00:00 SHANNON ity of [facility] 2021-03-16 2021-03-16 Emergency [facility] [id number] 01:37:00 03:38:00 Dee Fan 350.1.13.10 [place] 4.2.7.2.686 [employer] [id number] 084 2020-12-12 2020-12-12 Orders Doctor RODRIGUEZ 1.2.840.114 [id number] 00:00:00 00:00:00 Only Unassigned, PARVIN 350.1.13.10 [facility] 4.2.7.2.686 [id number] [facility] 2020-11-30 2020-11-30 Telephone [facility] 1.2.840.114 [id number] 00:00:00 00:00:00 Boo Fan 350.1.13.10 [place] 4.2.7.2.686 Professio [id number] [address] 2020-10-31 2020-10-31 Telephone [facility] 1.2.840.114 [id number] 00:00:00 00:00:00 Boo Fan 350.1.13.10 [place] 4.2.7.2.686 Professio [id number] [address] 2020-09-06 2020-09-06 Orders Doctor RODRIGUEZ 1.2.840.114 [id number] 00:00:00 00:00:00 Only Un[address]PARVIN [address] [facility] 4.2.7.2.686 [id number] 2020-08-18 2020-08-18 Orders Doctor JENNIFER 1.2.840.114 [id number] 00:00:00 00:00:00 Only Unassigned, PARVIN 350.1.13.10 [facility] 4.2.7.2.686 [id number] 009 2020-08-06 2020-08-14 Office Blayne [facility] 1.2.840.114 [id number] 08:52:45 13:22:47 Visit Boo Fan 350.1.13.10 [place] 4.2.7.2.686 Jorge [id number] nal 092 Building Results Test Description Test Time Test Comments Results Result Comments Source VALPROIC ACID, TOTAL 2021-09-15 23:29:56 Test Item Value Reference Range Interpretation Comme nts VALPROIC A (test code = 7322558561) 54 ug/mL 50-100 TUCKER (test code = TUCKER) Toxic Range: ?Greater than 100 ug/mL Lab Interpretation (test code = 74246-1) Normal [facility] WITH [id number] 22:55:09 Test Item Value Reference Range Interpretation Comments WBC (test code = See_Comment [Automated 7490-2) message] The sy stem which generated this result transmitted reference range : 4.20 - 10.70 10*3/?L. The reference range was not used to interpret this result as normal/abnormal . RBC (test code = See_Comment L [Automated 419-8) message] The sy stem which generated this [...] RDW-SD (test code = 45.4 fL 38.5-51.6 24266-6) RDW-CV (test code = 14.1 % 12.1-15.4 788-0) PLT (test code = See_Comment H [Automated 777-3) message] The sy stem which generated this result transmitted reference range : 150 - 328 10*3/ ?L. The reference r gerardo was not used to interpret this result as normal/abnormal . MPV (test code = 9.5 fL 9.8-13.0 L 62015-4) NRBC/100 WBC (test See_Comment [Automat ed code = 2076921280) message] The system which generated this result transmitted reference range : 0.0 - 10.0 /100 WBCs. The refer ence range was not u sed to interpret th is result as normal/abnormal . NRBC x10^3 (test code <0.01 See_Comment [Auto mated = 9206903173) message] The s ystem which generated this result transmitted reference range : 10*3/?L. The reference range was not used to interpret this result as normal/abnormal . GRAN MAT (NEUT) % 39.7 % (test code = 770-8) IMM GRAN % (test code 0.70 % = 5992060121) LYMPH % (test code = 41.5 % 736-9) MONO % (test code = 15.1 % 5905-5) EOS % (test code = 2.5 % 713-8) BASO % (test code = 0.5 % 706-2) GRAN MAT x10^3(ANC) 2.25 10*3/uL 1.99-6.95 (test code = 6590304968) IMM GRAN x10^3 (test 0.04 10*3/uL 0.00-0.06 code = 1761157441) LYMPH x10^3 (test code 2.36 10*3/uL 1.09-3.23 = 731-0) MONO x10^3 (test code 0.86 10*3/uL 0.36-1.02 = 742-7) EOS x10^3 (test code = 0.14 10*3/uL 0.06-0.53 711-2) BASO x10^3 (test code 0.03 10*3/uL 0.01-0.09 = 704-7) Lab Interpretation Abnormal (test code = 12423-5) [facility] (97965)2021-09-15 22:28:20 Test Item Value Reference Range Interpretation Comments NA (test code = 136 mmol/L 135-145 4183140500) K (test code = 4.3 mmol/L 3.5-5.0 1420130849) CL (test code = 108 mmol/L 98-108 8986900037) CO2 TOTAL (test code = 26 mmol/L 23-31 1424355098) AGAP (test code = 2-16 3840571119) BUN (test code = 16 mg/dL 7-23 6346625032) GLUCOSE (test code = 86 mg/dL 70-110 2849478552) CREATININE (test code = 0.69 mg/dL 0.60-1.25 7081724572) TOTAL BILI (test code = 0.2 mg/dL 0.1-1.8 8552650647) CALCIUM (test code = 8.4 mg/dL 8.6-10.6 L 4784214642) T PROTEIN (test code = 6.0 g/dL 6.3-8.2 L 2423045432) ALBUMIN (test code = 3.4 g/dL 3.5-5.0 L 9559606386) ALK PHOS (test code = 70 U/L 34-122 1248129915) ALTv (test code = 14 U/L 5-50 1742-6) AST(SGOT) (test code = 23 U/L 13-40 2754967093) eGFR (test code = mL/min/1.73m2 1514966183) TUCKER (test code = TUCKER) Association of [...] tests). Lab Interpretation Abnormal (test code = 24708-2) [facility] Whole [id number] 22:01:16 Test Item Value Reference Range Interpretation Comments LACTIC ACID (test code = 1.74 mmol/L 0.50-2.20 3833004632) Lab Interpretation (test code = Normal 53683-0) [facility] [id number] 14:50:00Surgical Pathology Report Case: [id number] Authorizing Provider: Kimberly Mann Collected: 11/09/2020 08:59 AM MD Светлана OrderingLocation: [address] Received: 11/11/2020 08:24 AM Service Pathologist: Anahi León MD Specimen: Gallb ladder This amendment is issued to correct a transcriptional error. A. GALLBLADDER, CHOLECYSTECTOMY: - CHRONIC CHOLECYSTITIS. Signing Pathologist Direct Phone Line: [phone] electronically signed by Anahi León MD on 11/13/2020 at 2:50 PM [id number] painGallbladderA. Received fresh, labeled with the patient's [...] 0.1-0.3 cm. No gross lesions are identified. Bag Washer sections are submitted.Section codeA1: Cystic duct margin (blue), en faceA2: Gallbladder wallChelsea CHRISTIAN Buitrago, LEO (ASCP)cmPerformed.[facility], Department of Pathology, [address] [place] [address], [facility], [facility] of Path[facility], [address] [place] [address], [facility], [facility] of Pathology, [address] [place] [address], LIWSRB [id number] 11:14:00Surgical Pathology Report Case: [id number] Authorizing Provider: Eleno Keane MD Collected: 11/07/2020 03:21 PM Ordering Location: [address] Received: 11/08/2020 08:02 AM Service Pathologist: [...] OR MALIGNANCY Signing Pathologist Direct Phone Line: [phone] signed by Yadira Gardner MD on 11/08/2020 at 3:25 PMB. GMS stain is pending and will be reported in an addendum.[id number] obstructionA. DuodenumB. Esophagus, distalA. Received informalin labeled with the patient's name, medical record number and "duodenum" and consists of 4 tansoft tissue fragments ranging 0.2-0.3 cm submitted in toto in A1.B. Received in formalin labeled with the patient's name, medical record number and "distal esophagus" and consists of 4 white soft tissue fragments ranging 0.1-0.2 cm submitted in toto in B1.CHRISTIAN Monroe PA ([facility])cmPerformed.The interpretation of this case included the use of immunohistochemistry or special stains.Control Slides Examined: In-house known positive controls were evaluated along with the test tissue. These control slides run alongside of the patients sample show appropriate staining. Internal positive and negative controls when available are evaluated Immunohistochemistry technical testing was performed at [facility], Pathology Laboratory where it was developed [...] perform high complexity clinical laboratory testing.BASIC METABOLIC [id number] 04:30:00 Test Item Value Reference Range Interpretation [...] S NOT APPLICABLE FOR DIALYSIS PATIEN TS. Vamp Throater ID - [id number] 04:30:00 Test Item Value Reference Range Interpretation Comments MAGNESIUM (BEAKER) (test code = 1.8 mg/dL 1.6-2.6 627) Vamp Throater ID - EDASIHEPATIC FUNCTION [id number] 04:30:00 Test Item Value Reference Range Interpretation [...] (test code = 26 U/L 6-55 347) Vamp Throater ID - EDASICBC W/PLT COUNT & AUTO [id number] 03:48:00 Test Item Value Reference Range Interpretation [...] 0-1 PERCENT (BEAKER) (test code = 2801) [id number] 05:11:00 Test Item Value Reference Range Interpretation Comments MAGNESIUM (BEAKER) (test code = 1.8 mg/dL 1.6-2.6 627) Vamp Throater ID - ADMINHEPATIC FUNCTION [id number] 05:11:00 Test Item Value Reference Range Interpretation [...] (test code = 29 U/L 6-55 347) Vamp Throater ID - ADMINBASIC METABOLIC [id number] 05:11:00 Test Item Value Reference Range Interpretation [...] S NOT APPLICABLE FOR DIALYSIS PATIEN TS. Vamp Throater ID - ADMINCBC W/PLT COUNT & AUTO [id number] 04:33:00 Test Item Value Reference Range Interpretation [...] PERCENT (BEAKER) (test code = 2801) SARS-COV2/RT-PCR ([facility])2020-11-08 09:38:00 Test Item Value Reference Range Interpretation Comments SARS-COV2/RT-PCR (test Negative Not Detected, Negative, code = 6843697) See external report for linked test SARS-COV-2 PERFORMING LAB [facility] (test code = 9816267) Negative result for this test determines that [...] 564(g) of the Act.Fact Sheet for Healthcare Providers:https://www.[employer]/sites/default/files/product/documents/Fact_Shee s_WT_Shsfictdu_Fdaa_BOIM-DwP-9.pdfFact Sheet for Healthcare Patients:https://www.[employer]/sites/default/files/product/ documents/Uuio_Atysx_Gikziubs_Mdtz_JNKK-VxT-7.pdfPerforming Laboratory:[place] [address] [address].[place], [place] [address]LADTB METABOLIC PANEL 2020-11-08 04:42:00 Test Item Value [...] S NOT APPLICABLE FOR DIALYSIS PATIEN TS. Vamp Throater ID - DANA [id number] 04:42:00 Test Item Value Reference Range Interpretation Comments MAGNESIUM (BEAKER) (test code = 1.8 mg/dL 1.6-2.6 627) Vamp Throater ID Ramsey CORTEZ WHEPATIC FUNCTION [id number] 04:42:00 Test Item Value Reference Range Interpretation [...] (test code = 38 U/L 6-55 347) Vamp Throater ID - DANA [id number] 04:42:00 Test Item Value Reference Range Interpretation Comments LIPASE (BEAKER) (test code = 749) 12 U/L 8-78 Vamp Throater ID Ramsey CORTEZ WPROTHROMBIN [id number] 04:35:00 Test Item Value Reference Range Interpretation [...] INR is2.5-3.5 for patients wiht mechanical heart valves.[id number] 04:35:00 Test Item Value Reference Range Interpretation Comments PARTIAL THROMBOPLASTIN TIME 28.4 seconds 22.5-36.0 (BEAKER) (test code = 760) CBC W/PLT COUNT & AUTO [id number] 03:57:00 Test Item Value Reference Range Interpretation [...] PERCENT (BEAKER) (test code = 2801) [place], [id number] 16:06:13Reason for exam:->[facility] 1980 Sex: MFluoroscopic unit utilized for a procedure performed in the OR. No interpretation was requested. Refer to the operative report for findings. Refer to PACS for patient radiation dose information.MR, BRAIN, WITHOUT [id number] 19:26:00Unlisted Reason for Exam - Click Yes and Enter Reason Below->YesUnlisted Reason for Exam->tingling/numbnessFINAL REPORT MR, BRAIN, WITHOUT CONTRAST, MR, MRA, BRAIN, WITHOUT CONTRAST, MR, MRA, NECK, WITHOUT IV CONTRAST INDICATION: Unlisted Reason for Examtingling/numbness TECHNIQUE: Multiplanar, multisequence MR imaging of the brain without intravenous contrast.MRA of the head utilizing 3-D iddz-gb-lddoyv technique, with 3-D reconstructions.MRA of the neck utilizing 2-D and 3-D fhgy-lr-icztgr technique, with 3-D reconstructions. COMPARISON: None FINDINGS: [...] Mcel[place] Verified Date/Time: 07/08/2020 19:26:58 MR, MRA, BRAIN, WITHOUT [id number] 19:26:00Unlisted Reason for Exam - Click Yes and Enter Reason Below->YesUnlisted Reason for Exam->tingling, numbnessFINAL REPORT MR, BRAIN, WITHOUT CONTRAST, MR, MRA, BRAIN, WITHOUT CONTRAST, MR, MRA, NECK, WITHOUT IV CONTRAST INDICATION: Unlisted Reason for Examtingling/numbness TECHNIQUE: Mul tiplanar, multisequence MR imaging of the brain without intravenous contrast.MRA of the head utilizing 3-D dneb-az-aygwiv technique, with 3-D reconstructions.MRA of the neck utilizing 2-D and 3-D vjwl-wq-itoken technique, with 3-D reconstructions. COMPARISON: None FINDINGS: [...] 07/08/2020 19:26:58 MR, MRA, NECK, WITHOUT IV [id number] 19:26:00Unlisted Reason for Exam - Click Yes and Enter Reason Below->YesUnlisted Reason for Exam->tingling, numbnessFINAL REPORT MR, BRAIN, WITHOUT CONTRAST, MR, MRA, BRAIN, WITHOUT CONTRAST, MR, MRA, NECK, WITHOUT IV CONTRAST INDICATION: Unlisted Reason for Examtingling/numbness TECHNIQUE: Multiplanar, multisequence MR imaging of the brain without intravenous contrast.MRA of the head utilizing 3-D banh-op-tlmoue technique, with 3-D reconstructions.MRA of the neck utilizing 2-D and 3-D vtsh-mb-lvngrt technique, with 3-D reconstructions. COMPARISON: None FINDINGS: [...]
[2022-01-14 17:34] LABS: Absolute Lymphocytes (CBC) 1.7 K/uL (0.7-4.9); Hematocrit 38.2 % (39.6-49.0); Lymphocytes % 25.8 % (15.3-44.8); MPV 8.7 fL (7.6-11.3); RBC Red Blood Cell Count 5.01 M/uL (4.33-5.43)
[2022-01-14] MEDS ORDERED: NA CHLORIDE 0.9% 1,000 ML ONE (17:39)
[2022-01-14 17:42] LABS: Protime INR 0.9
[2022-01-14 17:51] LABS: ALT/SGPT 23 U/L (12-78); AST/SGOT 21 U/L (15-37); Albumin 3.2 g/dL (3.4-5.0); Alkaline Phosphatase 105 U/L (45-117); BUN Blood Urea Nitrogen 13 mg/dL (7-18); Bicarbonate 28 mmol/L (21-32); Bilirubin Total 0.3 mg/dL (0.2-1.0); Glucose Level 93 mg/dL (74-106); Potassium 3.4 mmol/L (3.5-5.1); Protein, Total 6.7 g/dL (6.4-8.2); Sodium Level 142 mmol/L (136-145)
[2022-01-14 17:55] LABS: Bilirubin Direct < 0.1 mg/dL (0-0.2)
[2022-01-14 18:37] LABS: Anisocytosis 2+; Blood Morphology Comment NOTED (NOT SEEN); Platelet Estimate ADEQ; Poikilocytosis 2+; White Blood Cell Scan OK (OK)
[2022-01-14 19:46] LABS: Urine Blood Negative (Negative); Urine Glucose Negative (Negative); Urine Protein Negative (Negative)
[2022-01-14] MEDS ORDERED: ONDANSETRON 4 MG/2 ML VIAL ONE (20:01)
[2022-01-14] MEDS ORDERED: LORazepam 2 MG/ML VIAL ONE (20:04)
[2022-01-14] MEDS ORDERED: LEVETIRACETAM 500 MG/5 ML VIAL IV ONE (20:08)
[2022-01-14] MEDS ORDERED: NA CHLORIDE 0.9% 100 ML IV ONE (20:08)
--- NOTE | 2022-01-14 20:16 | EDPHYS ---
Physician Documentation [facility] Name: Ta Quezada Age: 41 yrs Sex: Male : 1980 Arrival Date: 01/14/2022 Time: 17:01 Bed 3 Private MD: ED Physician Eric Palafox HPI: 01/14 18:21 This 41 yrs old Male presents to ER via EMS with complaints of Seizure. jr8 20:10 The patient presents after having a single isolated seizure, that lasted 20 minute(s). jr8 Character of seizure(s): Loss of consciousness: the patient experienced loss of consciousness, Motor activity: generalized, Incontinence: none, Circulation: the patient did not experience evidence of pulse disturbance. Seizure onset: just prior to arrival. Context: the seizure(s) was witnessed, by family, occurred at home, occurred while the patient was at rest. Seizure Hx: Original onset: longstanding, Seizure medications: Keppra. Current symptoms: decreased level of consciousness, is arousable but tired. The patient has experienced similar episodes in the past, a few times. The patient has been recently seen by a physician:. This is a 41-year-old male that came in via EMS after having a prolonged seizure at home. of patient stated that they have been increasing his meds as he has had uncontrolled seizures. Last change was they increased his Keppra to 1000 mg twice daily. Took his morning dose as usual. Has been good for the past couple of days until today. Denies trauma.. Historical: - Allergies: 17:05 No Known Allergies; ss - PMHx: 17:05 Depression; GERD; Hypertension; Kidney stones; Seizure; TIA; ss - PSHx: 17:05 Cholecystectomy; ss - Immunization history:: Adult Immunizations unknown. - Social history:: Smoking status: unknown. ROS: 20:10 Unable to obtain ROS due to Postictal. jr8 Exam: 20:10 Eyes: Pupils equal round and reactive to light, extra-ocular motions intact. Lids and jr8 lashes normal. Conjunctiva and sclera are non-icteric and not injected. Cornea within normal limits. Periorbital areas with no swelling, redness, or edema. Cardiovascular: Regular rate and rhythm with a normal S1 and S2. No gallops, murmurs, or rubs. Normal PMI, no JVD. No pulse deficits. Respiratory: Lungs have equal breath sounds bilaterally, clear to auscultation and percussion. No rales, rhonchi or wheezes noted. No increased work of breathing, no retractions or nasal flaring. Abdomen/GI: Soft with normal bowel sounds. No distension Skin: Warm, dry with normal turgor. Normal color with no rashes, no lesions, and no evidence of cellulitis. MS/ Extremity: Pulses equal, no cyanosis. Neurovascular intact. Full, normal range of motion. 20:10 Neuro: Orientation: Not oriented to person, place, time, situation, Mentation: able to follow commands, slow to respond, Sensation: no obvious gross deficits, seizure activity, is not currently displayed, but the patient is post-ictal. Vital Signs: 17:01 BP 117 / 79; Pulse 72; Resp 14; Temp 97.2(TE); Pulse Ox 94% on R/A; ss 17:53 BP 125 / 78; Pulse 66; Resp 20 S; Pulse Ox 100% on 2 lpm NC; jd3 18:47 BP 123 / 76; Pulse 69; Resp 18 S; Pulse Ox 100% on 2 lpm NC; jd3 19:23 BP 131 / 78; Pulse 63; Resp 17 S; Pulse Ox 97% on 2 lpm NC; as6 20:00 BP 118 / 97; Pulse 61; Resp 16; Pulse Ox 97% on R/A; st1 21:00 BP 124 / 74; Pulse 65; Resp 16; Pulse Ox 94% on R/A; st1 22:00 BP 133 / 75; Pulse 70; Resp 20; Pulse Ox 94% on R/A; st1 23:30 BP 131 / 85; Pulse 61; Resp 16; Pulse Ox 95% on R/A; st1 Karie Coma Score: 17:04 Eye Response: to pain(2). Verbal Response: inappropriate words(3). Motor Response: jd3 localizes pain(5). Total: 10. 17:05 Eye Response: to pain(2). Verbal Response: inappropriate words(3). Motor Response: jd3 localizes pain(5). Total: 10. MDM: 17:03 Patient medically screened. jr8 20:10 Data reviewed: vital signs, nurses notes, lab test result(s), radiologic studies, CT jr8 scan. Data interpreted: Pulse oximetry: on room air is 97 %. Interpretation: normal. Counseling: I had a detailed discussion with the patient and/or guardian regarding: the historical points, exam findings, and any diagnostic results supporting the discharge/admit diagnosis, lab results, radiology results, the need for further work-up and treatment in the hospital. ED course: Patient still having prolonged postictal phase and started to have focal seizure-like activity. Loaded him with another gram of K[place] and call Dr. Earl who will consult . 01/14 17:21 Order name: Basic Metabolic Panel; Complete Time: 18:42 8 01/14 17:21 Order name: CBC with Diff; Complete Time: 18:42 8 01/14 17:21 Order name: ETOH Level; Complete Time: 18:42 8 01/14 17:21 Order name: Hepatic Function; Complete Time: 18:42 8 01/14 17:21 Order name: PT-INR; Complete Time: 17:47 01/14 17:21 Order name: Ptt, Activated; Complete Time: 17:47 8 01/14 17:21 Order name: Urine Drug Screen; Complete Time: 20:30 8 01/14 18:38 Order name: CBC Smear Scan; Complete Time: 18:42 EDMA 01/14 19:46 Order name: Urine Dipstick-Ancillary; Complete Time: 20:04 EDMS 01/14 20:03 Order name: Dilantin; Complete Time: 22:44 as6 01/14 20:05 Order name: CT Head Brain wo Cont 01/14 21:16 Order name: CT; Complete Time: 21:19 EDMA 01/14 21:51 Order name: COVID-19/FLU A+B (Document "Date of Onset" if Symptomatic) as6 01/14 23:41 Order name: COVID-19/FLU A+B; Complete Time: 00:03 EDMA 01/14 17:21 Order name: EKG; Complete Time: 17:22 8 01/14 17:21 Order name: EKG - Nurse/Tech; Complete Time: 17:35 jr8 01/14 17:21 Order name: IV Saline Lock; Complete Time: 17:35 8 01/14 17:21 Order name: Labs collected and sent; Complete Time: 17:35 jr8 01/14 17:21 Order name: Urine Dipstick-Ancillary (obtain specimen); Complete Time: 19:46 8 Administered Medications: 17:39 Drug: NS 0.9% 1000 ml Route: IV; Rate: 125 ml/hr; Site: left wrist; jd3 01/15 00:25 Follow up: Response: No adverse reaction; IV Status: Completed infusion; IV Intake: as6 1000ml 01/14 20:00 Drug: Zofran (Ondansetron) 4 mg Route: IVP; Site: left antecubital; as6 01/15 00:25 Follow up: Response: No adverse reaction as01/14 20:11 Drug: Keppra (levETIRAcetam) 1000 mg Route: IV; Rate: calculated rate; Site: left as6 antecubital; 01/15 00:26 Follow up: Response: No adverse reaction; IV Status: Completed infusion; IV Intake: as6 100ml 01/14 20:20 Drug: Ativan (LORazepam) 1 mg Route: IVP; Site: left forearm; as6 01/15 00:26 Follow up: Response: No adverse reaction as6 01/14 22:24 Drug: Potassium Chloride 20 mEq Route: IV; Rate: calculated rate; Site: left forearm; as6 01/15 00:25 Follow up: Response: No adverse reaction; IV Status: Completed infusion; IV Intake: as6 100ml Disposition: 18:16 Co-signature as Attending Physician, Eric MCKENZIE was immediately available on-site ms3 in the Emergency Department for consultation in the care of the patient.. Disposition Summary: 01/14/22 20:15 Hospitalization Ordered Hospitalization Status: Observation 8 Provider: Abdirashid Ferrara jr8 Location: Telemetry/MedSurg (observation) 8 Condition: Stable jr8 Problem: new jr8 Symptoms: are unchanged jr8 Bed/Room Type: Standard [facility] Room Assignment: 224(01/14/22 23:58) ds4 Diagnosis - Other seizures jr8 Forms: - Medication Reconciliation Form 8 - SBAR form 8 Signatures: Dispatcher [employer] EDKaren Bruner RN RN ss Roszak, Josh, PA PA jr8 Oswaldo Harvey ds4 Volodymyr Marr RN RN jd3 Sims, Eric, DO DO ms3 Riley Arrington RN RN as6 Corrections: (The following items were deleted from the chart) 01/14 19:02 17:21 Suicide Screening (Cayce) ordered. jr8 jd3 23:58 20:15 jr8 ds4
--- NOTE | 2022-01-14 20:16 | ER ---
Nurse's Notes [facility] Name: Ta Quezada Age: 41 yrs Sex: Male : 1980 Arrival Date: 01/14/2022 Time: 17:01 Bed 3 Private MD: Diagnosis: Other seizures Presentation: 01/14 17:01 Chief complaint: EMS states: Seizure at home, witnessed by . Possible tonic clonic. ss HX of seizures. Coronavirus screen: Client denies travel out of the [place] in the last 14 days. Ebola Screen: Patient denies travel to an Ebola-affected area in the 21 days before illness onset. Initial Sepsis Screen: Does the patient meet any 2 criteria? No. Patient's initial sepsis screen is negative. Does the patient have a suspected source of infection? No. Patient's initial sepsis screen is negative. Risk Assessment: Do you want to hurt yourself or someone else? Patient reports no desire to harm self or others. Onset of symptoms was January 14, 2022. Care prior to arrival: Glucose check: 117 Versed 5 mg given intranasal. 17:01 Method Of Arrival: EMS: [facility] ss 17:01 Acuity: RENE 2 ss Historical: - Allergies: 17:05 No Known Allergies; ss - PMHx: 17:05 Depression; GERD; Hypertension; Kidney stones; Seizure; TIA; ss - PSHx: 17:05 Cholecystectomy; ss - Immunization history:: Adult Immunizations unknown. - Social history:: Smoking status: unknown. Screenin:03 Abuse screen: Denies threats or abuse. Nutritional screening: No deficits noted. jd3 Tuberculosis screening: No symptoms or risk factors identified. Fall Risk IV access (20 points). Gait- Impaired (20 pts.). Mental Status- Overestimates/Forgets Limitations (15 pts.). Total [place] Fall Scale indicates High Risk Score (45 or more points). Fall prevention measures have been instituted. Side Rails Up X 2 Placed Close to Nursing Station Frequent Obs/Assessments Occuring. Assessment: 17:01 General: Appears comfortable, Behavior is calm, post-ictal. Pain: Unable to use pain jd3 scale. FLACC scale score is 0 out of 10. post-ictal. Neuro: Level of Consciousness is post ictal, Oriented to none Pupils are constricted, pupils reactive to light. Cardiovascular: Heart tones S1 S2 present Capillary refill < 3 seconds Patient's skin is warm and dry. Rhythm is regular. Respiratory: Airway is patent Respiratory effort is even, unlabored, Respiratory pattern is regular, symmetrical, Breath sounds are clear bilaterally. GI: No signs and/or symptoms were reported involving the gastrointestinal system. : No signs and/or symptoms were reported regarding the genitourinary system. EENT: No signs and/or symptoms were reported regarding the EENT system. Derm: Skin is intact, Skin is dry, Skin is normal, Skin temperature is warm. Musculoskeletal: Circulation, motion, and sensation intact. Range of motion: intact in all extremities. 17:52 Reassessment: Patient appears in no apparent distress at this time. Patient and/or jd3 family updated on plan of care and expected duration. Pain level reassessed. General: Appears comfortable, Behavior is calm, cooperative, drowsy. Neuro: Level of Consciousness is awake, lethargic, Oriented to person, place, situation. 18:47 Reassessment: Patient appears in no apparent distress at this time. Patient and/or jd3 family updated on plan of care and expected duration. Pain level reassessed. Patient is alert, oriented x 3, equal unlabored respirations, skin warm/dry/pink. Patient states feeling better. General: Behavior is drowsy. Neuro: Level of Consciousness is awake, obeys commands, Oriented to person, place, time, situation. 19:22 General: Behavior is drowsy, pt answering questions appropriately, pt states "my whole as6 body is sore" . Neuro: Level of Consciousness is post ictal. 20:10 General: pt seizing, provider at bedside . as6 Vital Signs: 17:01 BP 117 / 79; Pulse 72; Resp 14; Temp 97.2(TE); Pulse Ox 94% on R/A; ss 17:53 BP 125 / 78; Pulse 66; Resp 20 S; Pulse Ox 100% on 2 lpm NC; jd3 18:47 BP 123 / 76; Pulse 69; Resp 18 S; Pulse Ox 100% on 2 lpm NC; jd3 19:23 BP 131 / 78; Pulse 63; Resp 17 S; Pulse Ox 97% on 2 lpm NC; as6 20:00 BP 118 / 97; Pulse 61; Resp 16; Pulse Ox 97% on R/A; st1 21:00 BP 124 / 74; Pulse 65; Resp 16; Pulse Ox 94% on R/A; st1 22:00 BP 133 / 75; Pulse 70; Resp 20; Pulse Ox 94% on R/A; st1 23:30 BP 131 / 85; Pulse 61; Resp 16; Pulse Ox 95% on R/A; st1 [place] Coma Score: 17:04 Eye Response: to pain(2). Verbal Response: inappropriate words(3). Motor Response: jd3 localizes pain(5). Total: 10. 17:05 Eye Response: to pain(2). Verbal Response: inappropriate words(3). Motor Response: jd3 localizes pain(5). Total: 10. ED Course: 17:01 Patient arrived in ED. ss 17:01 Volodymyr Marr RN is Primary Nurse. jd3 17:03 Nolberto Trujillo PA is PHCP. jr8 17:03 Eric Palafox DO is Attending Physician. jr8 17:03 Inserted saline lock: 18 gauge in left wrist, using aseptic technique. Blood collected. jd3 17:04 Triage completed. ss 17:04 Placed in gown. Bed in low position. Call light in reach. Side rails up X2. Seizure jd3 precautions initiated. hospital monitor on. Pulse ox on. NIBP on. 17:05 Arm band placed on. jd3 19:41 Primary Nurse role handed off by Volodymyr Marr, ANGELICA mw2 19:46 Neeru Boogie RN is Primary Nurse. st1 19:46 Urine Drug Screen Sent. st1 19:54 Diet tray given. as6 20:07 Dilantin Sent. st1 20:14 Abdirashid Ferrara MD is Hospitalizing Provider. jr8 23:52 COVID-19/FLU A+B (Document "Date of Onset" if Symptomatic) Sent. st1 01/15 00:08 No provider procedures requiring assistance completed. Inserted Patient admitted, IV st1 remains in place. Administered Medications: 01/14 17:39 Drug: NS 0.9% 1000 ml Route: IV; Rate: 125 ml/hr; Site: left wrist; jd3 01/15 00:25 Follow up: Response: No adverse reaction; IV Status: Completed infusion; IV Intake: as6 1000ml 01/14 20:00 Drug: Zofran (Ondansetron) 4 mg Route: IVP; Site: left antecubital; as6 01/15 00:25 Follow up: Response: No adverse reaction as6 01/14 20:11 Drug: Keppra (levETIRAcetam) 1000 mg Route: IV; Rate: calculated rate; Site: left as6 antecubital; 01/15 00:26 Follow up: Response: No adverse reaction; IV Status: Completed infusion; IV Intake: as6 100ml 01/14 20:20 Drug: Ativan (LORazepam) 1 mg Route: IVP; Site: left forearm; as6 01/15 00:26 Follow up: Response: No adverse reaction as6 01/14 22:24 Drug: Potassium Chloride 20 mEq Route: IV; Rate: calculated rate; Site: left forearm; 01/15 00:25 Follow up: Response: No adverse reaction; IV Status: Completed infusion; IV Intake: as6 100ml Intake: 00:25 IV: 1000ml; Total: 1000ml. as6 00:25 IV: 100ml; Total: 1100ml. as 00:26 IV: 100ml; Total: 1200ml. as6 Outcome: 01/14 20:15 Decision to Hospitalize by Provider. jr8 01/15 00:08 Admitted to Med/surg via stretcher, room 224, with chart, Report called to ANGELICA Resendez st1 Condition: good Discharge instructions given to patient, Instructed on the need for admit, Demonstrated understanding of instructions. 00:29 Patient left the ED. as6 Signatures: Karen Walker RN RN ss Roszak, Josh, PA PA jr8 Volodymyr Marr RN RN jd3 [place], MyKena 2 Riley Arrington RN RN as6 Neeru Boogie RN RN st1 Corrections: (The following items were deleted from the chart) 01/14 18:48 17:53 BP 125 / 78; Pulse 66bpm; Resp 20bpm; Spontaneous; Pulse Ox 100% RA; jaqui nails
[2022-01-14 20:25] LABS: Barbiturates NEGATIVE (NEGATIVE); Benzodiazepines POSITIVE (NEGATIVE); Cocaine NEGATIVE (NEGATIVE); METHAMPHETAM POSITIVE (NEGATIVE); Methadone NEGATIVE (NEGATIVE); Opiates NEGATIVE (NEGATIVE); Phencyclidine NEGATIVE (NEGATIVE); THC Cannibis POSITIVE (NEGATIVE)
--- NOTE | 2022-01-14 20:29 | P.HP ---
Certification for Inpatient Patient admitted to: Observation With expected LOS: <2 Midnights Patient will require the following post-hospital care: None Practitioner: I am a practitioner with admitting privileges, knowledge of patient current condition, hospital course, and medical plan of care. Services: Services provided to patient in accordance with Admission requirements found in Title 42 Section 412.3 of the Code of Federal Regulations Patient History Date of Service: 01/14/22 Reason for admission: Seizures History of Present Illness: 41-year-old male with history of depression, GERD, hypertension and seizure disorder presents emergency room after having a seizure, patient lives at home with his reports that he does have daily seizures although this seizure lasted much longer at about 20 minutes and was much more intense than normal. Patient remained postictal throughout his ED stay appears to be having some focal seizures. Patient's neurologist was contacted who recommended admission under observation and continuation of his home medications in addition to loading dose of Keppra. Allergies No Known Allergies Allergy (Unverified 12/21/16 20:12) Home Medications: Ergocalciferol (Vitamin D2) [Vitamin D 50,000 Unit Cap] 1 tab PO DAILY 11/04/20 Fluoxetine HCl [Prozac*] 1 tab PO DAILY 11/04/20 Omeprazole [Prilosec] 40 mg PO BID #60 capsule. 02/21/21 Aspirin 1 tab PO DAILY 03/31/21 Promethazine Tab [Phenergan*] 25 mg PO Q12HP PRN #30 tab 04/02/21 Divalproex Sodium [Depakote] 500 mg PO Q12H #60 tablet. 08/20/21 Thiamine HCl [Vitamin B-1*] 100 mg PO DAILY #30 tablet 08/20/21 levETIRAcetam [Keppra*] 500 mg PO BID #60 tab 08/20/21 - Past Medical/Surgical History Diabetic: No -: Depression -: Neuropathy -: GERD -: Juarez's esophagus -: Tobacco abuse -: Seizures -: Cholecystectomy Psychosocial/ Personal History: Patient is . Lives at home. - Family History Mother -: Diabetes, Cancer - Social History Smoking Status: Current every day smoker Alcohol use: No CD- Drugs: No Caffeine use: No Place of Residence: Home Review of Systems General: Other (Generalized body aches) Neurological: Seizures Physical Examination - Physical Exam General: Alert, In no apparent distress, Oriented x3 HEENT: Atraumatic, PERRLA, Mucous membr. moist/pink, EOMI, Sclerae nonicteric Neck: Supple, 2+ carotid pulse no bruit, No LAD, Without JVD or thyroid abnormality Respiratory: Clear to auscultation bilaterally, Normal air movement Cardiovascular: Regular rate/rhythm, Normal S1 S2 Gastrointestinal: Normal bowel sounds, No tenderness Musculoskeletal: No tenderness Integumentary: No rashes Neurological: Normal speech, Normal strength at 5/5 x4 extr, Normal tone, Normal affect Lymphatics: No axilla or inguinal lymphadenopathy - Studies Laboratory Data (last 24 hrs) 01/14/22 17:26: PT 9.9, INR 0.90, APTT 28.6 01/14/22 17:26: WBC 6.6, Hgb 12.5 L, Hct 38.2 L, Plt Count 251 01/14/22 17:26: Sodium 142, Potassium 3.4 L, BUN 13, Creatinine 0.77, Glucose 93, Total Bilirubin 0.3, AST 21, ALT 23, Alkaline Phosphatase 105 Assessment and Plan - Plan Assessment: Breakthrough seizures history seizure disorder Juarez's esophagus/GERD Hypertension Plan: Breakthrough seizures history seizure disorder: Patient loaded with Keppra in the ER admit under observation, seizure precautions in place. Neurology consulted ED provider discussed with neurology this evening. We will continue patient's Depakote, Dilantin and Keppra, as needed Ativan. Juarez's esophagus/GERD: Obtain and continue home medications Hypertension: Obtain and continue medications DVT PPX: Lovenox Code status: Full Discharge Plan: Home Plan to discharge in: 24 Hours - Advance Directives Does patient have a Living Will: No Does patient have a Durable POA for Healthcare: No - Code Status/Comfort Care Code Status Assessed: Yes (Full) Critical Care: No Time Spent Managing Pts Care (In Minutes): 55
--- NOTE | 2022-01-14 21:15 | RAD REPORT ---
EXAM DESCRIPTION: CT - Head Brain Wo Cont - 01/14/2022 8:50 pm CLINICAL HISTORY: Seizure COMPARISON: 2020 TECHNIQUE: Computed axial tomography of the head was obtained. IV contrast was not requested. All CT scans are performed using dose optimization technique as appropriate and may include automated exposure control or mA/KV adjustment according to patient size. FINDINGS: An intracranial bleed is not seen . The ventricles are normal in caliber. No extra-axial fluid collection is noted. Fluid within the sinuses/ mastoids is not seen. IMPRESSION: No acute intracranial abnormality is seen. If patient's symptoms persist MRI of the bra in would be recommended.
[2022-01-14] MEDS ORDERED: KCL 20 MEQ/100 mL IVPB 100 ML IV ONE (21:20)
[2022-01-14] MEDS ORDERED: NA CHLORIDE 0.9% 500 ML ONE (22:32)
[2022-01-14 23:41] LABS: SARS-COV-2 RT PCR NEGATIVE (NEGATIVE)
[2022-01-15] MEDS ORDERED: PHENYTOIN ER 100 MG CAP PO SCH (00:33)
[2022-01-15] MEDS ORDERED: ONDANSETRON 4 MG/2 ML VIAL IV PRN (00:33)
[2022-01-15] MEDS: LORazepam 2 MG/ML VIAL IV PRN ×4 (00:40→21:31)
[2022-01-15] MEDS ORDERED: NA CHLORIDE 0.9% 1,000 ML ONE (00:44)
[2022-01-15] MEDS: NA CHLORIDE 0.9% 1,000 ML IV SCH ×3 (00:44→20:15)
[2022-01-15 03:18] VITALS: BMI 26.4
[2022-01-15] MEDS: levETIRAcetam 500 MG TAB PO SCH ×2 (04:53→09:00)
[2022-01-15] MEDS: DIVALPROEX DR 500MG TAB PO SCH ×3 (04:53→20:15)
[2022-01-15 06:10] LABS: Absolute Lymphocytes (CBC) 2.1 K/uL (0.7-4.9); Hematocrit 35.6 % (39.6-49.0); Lymphocytes % 27.9 % (15.3-44.8); MPV 8.6 fL (7.6-11.3); RBC Red Blood Cell Count 4.64 M/uL (4.33-5.43)
[2022-01-15 06:24] LABS: ALT/SGPT 24 U/L (12-78); AST/SGOT 22 U/L (15-37); Albumin 2.9 g/dL (3.4-5.0); Alkaline Phosphatase 103 U/L (45-117); BUN Blood Urea Nitrogen 10 mg/dL (7-18); Bicarbonate 26 mmol/L (21-32); Bilirubin Total 0.3 mg/dL (0.2-1.0); Glucose Level 89 mg/dL (74-106); Potassium 3.5 mmol/L (3.5-5.1); Protein, Total 5.8 g/dL (6.4-8.2); Sodium Level 141 mmol/L (136-145)
--- NOTE | 2022-01-15 06:31 | P.PN ---
Date of Service: 01/15/22 Subjective: brief tonic-clonic seizure activity overnight / this morning lasting ~3 minutes each postictal this morning, reports "not feeling good" ROS: 10 point ROS as noted above, otherwise negative Physical exam GEN: fatigued, postictal, slight confusion HEENT: Normal conjunctiva, sclera anicteric CV: Regular rate and rhythm, no edema Pulm: Nonlabored respirations on room air ABD: Soft, nontender, nondistended Integumentary: No rashes Neuro: slowed speech, moves all extremities, follows commands Problem List Breakthrough seizures history seizure disorder (daily seizures) Juarez's esophagus/GERD Hypertension loaded with keppra in ED continued with seizures overnight this morning with 2 ~3min seizures ~5 minutes apart. tonic clonic, mild. at one point seemed to be trying to talk during one possible pseudoseizure with seizures no infectious etiology UDS + THC, +amphetamine - likely why he is having breakthrough seizure activity neuro consulted - recommended transfer to tertiary center for continuous EEG monitoring, eval for pseudoseizures, patient's seizures refractory to multiple antiepileptics Medications switched to IV, loaded with Dilantin this morning, continue with twice daily dosing DVT PPX: Lovenox Code status: Full Dispo: transfer initiated to [facility] Time Spent Managing Pts Care (In Minutes): 35
[2022-01-15] MEDS: PANTOPRAZOLE 40MG TABLET PO SCH ×2 (06:39→20:16)
[2022-01-15] MEDS: SUCRALFATE 1 GM TABLET PO SCH ×2 (06:40→20:16)
[2022-01-15] MEDS ORDERED: INFLUENZA VACCINE (for 6+ mo) 0.5 ML DOSE IMVAC ONE (08:00)
[2022-01-15] MEDS ORDERED: POTASSIUM CL SA 10 MEQ TAB PO ONE (09:00)
[2022-01-15] MEDS ORDERED: NA CHLORIDE 0.9% IV STA (10:41)
[2022-01-15] MEDS ORDERED: PHENYTOIN IV STA (10:41)
[2022-01-15] MEDS: levETIRAcetam 1,000 MG in NA CHLORIDE 0.9% 100 ML IV SCH ×2 (11:36→20:14)
[2022-01-15] MEDS: ENOXAPARIN 40 MG/0.4 ML SQ SCH (13:05)
[2022-01-15] MEDS: GABAPENTIN 300 MG CAP PO SCH ×2 (15:29→20:16)
[2022-01-15] MEDS: NA CHLORIDE 0.9% IV SCH (20:15)
[2022-01-15] MEDS: PHENYTOIN IV SCH (20:15)
[2022-01-15] MEDS ORDERED: PHENYTOIN NA 100 MG/2 ML IV SCH (21:00)
--- NOTE | 2022-01-15 23:33 | CON ---
Reason For Consultation: Consultation called because of multiple seizures. History Of Present Illness: Mr. Quezada is a patient, I have seen in clinic. He is 41 years old and has a history of epileptic and nonepileptic seizures along with depression, hypertension, and gastro esophageal reflux disease. His brought him into the hospital yesterday, that is, January 14, repo rtedly with continuous seizures lasting 20 or 30 minutes despite taking multiple seizure medications including Depakote 500 mg every 12 hours and Keppra 500 mg twice daily. As per hospitalist, urine dr ug screen was positive for amphetamines, benzodiazepines, and tetrahydrocannabinols. The patient kep t having [id number]-[id number] events despite being loaded with Keppra along with a load of Dilantin in additi on to gabapentin and Depakote. However, some of the events appear to be nonepileptic, but it could n ot be proven as still there was no bedside monitoring available. His blood work revealed normal whit e blood cell count, which is against the presence of ongoing seizures. Typically, there is a [place] of 6.6 on and 7.5 on the , hemoglobin at 12.5, platelet count normal. His coagulatio n, INR 0.9. Chemistries essentially initially, his potassium was slightly low at 3.4, corrected 3.5. Liver function studies are normal. Urinalysis is normal. Toxicology has noted. Positive for amph etamine, benzodiazepine, and marijuana. Dilantin level was 4.6. COVID-19 test was negative. Influe nza screening negative. He does not have a lactic acid, which may be helpful in determining if the p atient actually is having ongoing seizures or not. Head CT scan showed no acute ischemic or hemorrha gic findings. The study was unremarkable. Past Medical History: As noted. In addition, Juarez esophagus, drug and tobacco abuse, gastroesoph ageal reflux disease. Allergies: NO KNOWN DRUG ALLERGIES. Medications: Vitamin D3 5000 units daily, Prozac daily, Prilosec 40 mg twice daily, aspirin 81 mg da paolo, Promethazine 25 mg every 12 hours as needed. Depakote 500 mg every 12 hours, thiamine 100 mg da paolo, Keppra 500 mg twice daily. Family History: Diabetes and cancer in mother. Past Surgical History: Cholecystectomy. Social History: The patient smokes cigarettes every day, in addition to using illegal drugs and pro digna, although his says she does not know about that, so it is quite clear that the patient's d rug screen is positive. Review of Systems: Not possible. The patient is not responding verbally. He is lying in bed, not intubated, breathing on his own, but not responding to verbal stimulation, responding with withdrawal to tactile stimulati on. Physical Examination: Vital Signs: Blood pressure 108/65, pulse 63, respiratory rate 18, temperature 97.7, oxygen saturati on 99%. General: Mr. Quezaad is lying in bed. He is in no significant distress. HEENT: He appears normocephalic and atraumatic. His sclerae are anicteric. Oropharynx appear moist , pink. Neck: Supple. Chest: Clear. Heart: Regular. Neurological: Unable to assess as the patient is not responding verbally. His face appears symmetri c. His tone is normal in upper and lower extremities. Cannot assess strength, coordination, gait, a nd balance. Assessment: Mr. Quezada is a 41-year-old patient with history of seizures and nonepileptic seizures along with a long history of drug abuse. He has positive amphetamines, benzodiazepines, and marijuan a. He is coming in with reported [id number]-rt-[id number] seizures despite being loaded with 4 antiepileptic med ications. Some events appear nonepileptic. However, there is no bedside monitoring, which would be important to be able to rule out epileptic from non-epileptic seizures. Plan: The patient will be transferred for higher level of care. We will discontinue his bedside mon itoring and there may be a possibility of cutting back the number of antiepileptic medications, which are excessive. The patient has no other clear reason for all these ongoing seizures and is positive for multiple drugs and should be a drug treatment program. He may follow up in my clinic, if the [facility] and his so choose, about a month after his discharge. BAUDILIO/JONATANL Voice ID: [id number] Report ID: [id number]
[2022-01-16 05:33] LABS: Absolute Lymphocytes (CBC) 2.7 K/uL (0.7-4.9); Hematocrit 34.6 % (39.6-49.0); Lymphocytes % 41.6 % (15.3-44.8); MPV 8.6 fL (7.6-11.3); RBC Red Blood Cell Count 4.56 M/uL (4.33-5.43)
[2022-01-16] MEDS: NA CHLORIDE 0.9% 1,000 ML IV SCH ×2 (05:42→15:56)
[2022-01-16 05:51] LABS: ALT/SGPT 27 U/L (12-78); AST/SGOT 18 U/L (15-37); Albumin 2.5 g/dL (3.4-5.0); Alkaline Phosphatase 105 U/L (45-117); BUN Blood Urea Nitrogen 10 mg/dL (7-18); Bicarbonate 25 mmol/L (21-32); Bilirubin Total 0.2 mg/dL (0.2-1.0); Glucose Level 80 mg/dL (74-106); Potassium 3.8 mmol/L (3.5-5.1); Protein, Total 5.7 g/dL (6.4-8.2); Sodium Level 141 mmol/L (136-145)
[2022-01-16] MEDS: LORazepam 2 MG/ML VIAL IV PRN ×3 (06:45→21:15)
--- NOTE | 2022-01-16 06:53 | P.PN ---
Date of Service: 01/16/22 Subjective: 1 ~3 minute seizure this morning ~7am, given ativan, slept afterwards / post- ictal characterized as mild tonic-clonic activity afebrile feels better than yesterday but still "tired and feels bad" ROS: 10 point ROS as noted above, otherwise negative Physical exam GEN: fatigued, AOx2 HEENT: Normal conjunctiva, sclera anicteric CV: Regular rate and rhythm, no edema Pulm: Non-labored respirations on room air ABD: Soft, nontender, nondistended Integumentary: No rashes Neuro: slowed speech, moves all extremities, follows commands Problem List Breakthrough seizures, h/o eplipetic and nonepileptic seizures Juarez's esophagus/GERD Hypertension loaded with keppra in ED continued with seizures on 01/15 - 3 in AM, 2 in afternoon, but interval between seizures has improved seizure / am at 7am. possible pseudoseizure no infectious etiology UDS + THC, +amphetamine - likely why he is having breakthrough seizure activity neuro consulted - recommended transfer to tertiary center for continuous EEG monitoring, eval for pseudoseizures, patient's seizures refractory to multiple antiepileptics Medications switched to IV, loaded with Dilantin on 01/15 improving, conversing/eating. seizure less frequent accepted to [facility], pending bed DVT PPX: Lovenox Code status: Full Dispo: transfer initiated to [facility], accepted to neuro-ICU for monitoring Time Spent Managing Pts Care (In Minutes): 35
[2022-01-16] MEDS: PHENYTOIN IV SCH ×2 (08:51→20:57)
[2022-01-16] MEDS: PANTOPRAZOLE 40MG TABLET PO SCH ×2 (08:51→20:54)
[2022-01-16] MEDS: levETIRAcetam 1,000 MG in NA CHLORIDE 0.9% 100 ML IV SCH ×2 (08:51→20:56)
[2022-01-16] MEDS: NA CHLORIDE 0.9% IV SCH ×2 (08:51→20:57)
[2022-01-16] MEDS: ENOXAPARIN 40 MG/0.4 ML SQ SCH (08:51)
[2022-01-16] MEDS: GABAPENTIN 300 MG CAP PO SCH ×2 (08:51→20:55)
[2022-01-16] MEDS: DIVALPROEX DR 500MG TAB PO SCH ×2 (08:52→20:55)
[2022-01-16] MEDS: SUCRALFATE 1 GM TABLET PO SCH ×2 (08:52→20:54)
[2022-01-16] MEDS ORDERED: POTASSIUM CL SA 10 MEQ TAB PO ONE (09:00)
[2022-01-16 09:07] LABS: Blood Morphology Comment NOTED (NOT SEEN); Platelet Estimate ADEQ; Platelets, Giant FEW; White Blood Cell Scan OK (OK)
[2022-01-16 09:08] LABS: Anisocytosis 1+; Ovalocytes 1+
[2022-01-17] MEDS: NA CHLORIDE 0.9% 1,000 ML IV SCH ×3 (01:27→23:58)
[2022-01-17 05:55] LABS: Hematocrit 35.1 % (39.6-49.0); MPV 8.2 fL (7.6-11.3); RBC Red Blood Cell Count 4.62 M/uL (4.33-5.43)
[2022-01-17 06:08] LABS: BUN Blood Urea Nitrogen 10 mg/dL (7-18); Bicarbonate 29 mmol/L (21-32); Creatine Phosphokinase 54 U/L (39-308); Glucose Level 81 mg/dL (74-106); Potassium 3.9 mmol/L (3.5-5.1); Sodium Level 141 mmol/L (136-145)
--- NOTE | 2022-01-17 07:26 | RAD REPORT ---
EXAM DESCRIPTION: RAD - Chest Single View - 01/17/2022 5:28 am CLINICAL HISTORY: cough, seizures, r/o aspiration COMPARISON: Portable 09/17/2021 TECHNIQUE: AP portable chest image was obtained 01/17/2022 5:28 am . FINDINGS: No focal consolidation to suspect bacterial or aspiration pneumonia is. Lung volumes are l ow and exam is underpenetrated in technique. This accentuates the baseline interstitial pattern. True or significant change comparison is doubtful. Heart size within normal limits for exam limitations. No abnormal vascular engorgement. No measurabl e pleural effusion and no pneumothorax. No acute bony abnormality seen. No acute aortic findings susp ected. IMPRESSION: Aspiration is not suspected. Accentuated bibasilar interstitial pattern is believed to be artifact of shallow inspiration, body laughlin bitus and under penetrated technique. A minimal interstitial edema or infiltrate not entirely exclude d.
[2022-01-17] MEDS ORDERED: POTASSIUM CL SA 10 MEQ TAB PO ONE (09:00)
[2022-01-17] MEDS: PHENYTOIN IV SCH ×2 (09:22→20:19)
[2022-01-17] MEDS: levETIRAcetam 1,000 MG in NA CHLORIDE 0.9% 100 ML IV SCH ×2 (09:22→20:16)
[2022-01-17] MEDS: SUCRALFATE 1 GM TABLET PO SCH ×2 (09:22→20:16)
[2022-01-17] MEDS: NA CHLORIDE 0.9% IV SCH ×2 (09:22→20:19)
[2022-01-17] MEDS: DIVALPROEX DR 500MG TAB PO SCH ×2 (09:22→20:16)
[2022-01-17] MEDS: ENOXAPARIN 40 MG/0.4 ML SQ SCH (09:23)
[2022-01-17] MEDS: PANTOPRAZOLE 40MG TABLET PO SCH ×2 (09:23→20:21)
[2022-01-17] MEDS: GABAPENTIN 300 MG CAP PO SCH ×2 (09:23→20:16)
--- NOTE | 2022-01-17 12:47 | P.PN ---
Date of Service: 01/17/22 Subjective: ~10min seizure last night, given ativan, drowsy and confused afterwards ~2mins seizure early this morning. post-ictal now ROS: 10 point ROS as noted above, otherwise negative Physical exam GEN: slow to respond, opens eyes, AOx2 HEENT: Normal conjunctiva, sclera anicteric CV: Regular rate and rhythm, no edema Pulm: Non-labored respirations on 2L NC ABD: Soft, nontender, nondistended Neuro: slowed speech, moves all extremities Problem List Breakthrough seizures, h/o eplipetic and nonepileptic seizures Juarez's esophagus/GERD Hypertension loaded with keppra in ED continued with seizures on 01/15 - 3 in AM, 2 in afternoon, but interval between seizures has improved seizure 01/16 am at 7am; ~2100 (~10min); 01/17 ~7am (3 min) possible pseudoseizure no infectious etiology identified on exam/imaging/labs UDS + THC, +amphetamine - likely why he is having breakthrough seizure activity. Patient and deny drug usage beyond marijuana neuro consulted - recommended transfer to tertiary center for continuous EEG monitoring, eval for pseudoseizures, patient's seizures refractory to multiple antiepileptics Medications switched to IV, loaded with Dilantin on 01/15 improving, conversing/eating yesterday. seizure less frequent accepted to [facility], pending bed DVT PPX: Lovenox Code status: Full Dispo: transfer initiated to [facility], accepted to neuro-ICU for monitoring Time Spent Managing Pts Care (In Minutes): 35
[2022-01-18 05:37] LABS: ALT/SGPT 21 U/L (12-78); AST/SGOT 14 U/L (15-37); Albumin 2.8 g/dL (3.4-5.0); Alkaline Phosphatase 106 U/L (45-117); BUN Blood Urea Nitrogen 11 mg/dL (7-18); Bicarbonate 29 mmol/L (21-32); Bilirubin Total 0.2 mg/dL (0.2-1.0); Glucose Level 87 mg/dL (74-106); Magnesium 1.9 mg/dL (1.8-2.4); Potassium 3.9 mmol/L (3.5-5.1); Protein, Total 5.9 g/dL (6.4-8.2); Sodium Level 140 mmol/L (136-145)
--- NOTE | 2022-01-18 06:49 | P.PN ---
Date of Service: 01/18/22 Subjective: ROS: 10 point ROS as noted above, otherwise negative Physical exam GEN: slow to respond, opens eyes, AOx2 HEENT: Normal conjunctiva, sclera anicteric CV: Regular rate and rhythm, no edema Pulm: Non-labored respirations on 2L NC ABD: Soft, nontender, nondistended Neuro: slowed speech, moves all extremities Problem List Breakthrough seizures, h/o eplipetic and nonepileptic seizures Juarez's esophagus/GERD Hypertension loaded with keppra in ED continued with seizures on 01/15 - 3 in AM, 2 in afternoon, but interval between seizures has improved seizure 01/16 am at 7am; ~2100 (~10min); 01/17 ~7am (3 min) possible pseudoseizure no infectious etiology identified on exam/imaging/labs UDS + THC, +amphetamine - likely why he is having breakthrough seizure activity. Patient and deny drug usage beyond marijuana neuro consulted - recommended transfer to tertiary center for continuous EEG monitoring, eval for pseudoseizures, patient's seizures refractory to multiple antiepileptics Medications switched to IV, loaded with Dilantin on 01/15 improving, conversing/eating yesterday. seizure less frequent accepted to [facility], pending bed DVT PPX: Lovenox Code status: Full Dispo: transfer initiated to [facility], accepted to neuro-ICU for monitoring Time Spent Managing Pts Care (In Minutes): 35
[2022-01-18] MEDS: NA CHLORIDE 0.9% 1,000 ML IV SCH (08:33)
[2022-01-18] MEDS: SUCRALFATE 1 GM TABLET PO SCH ×2 (08:37→21:44)
[2022-01-18] MEDS: GABAPENTIN 300 MG CAP PO SCH ×2 (08:37→21:30)
[2022-01-18] MEDS: PANTOPRAZOLE 40MG TABLET PO SCH ×2 (08:37→21:47)
[2022-01-18] MEDS: ENOXAPARIN 40 MG/0.4 ML SQ SCH (08:38)
[2022-01-18] MEDS: DIVALPROEX DR 500MG TAB PO SCH ×3 (09:00→21:44)
--- NOTE | 2022-01-18 09:43 | P.PN ---
Subjective Date of Service: 01/18/22 Chief Complaint: Recurrent refractory seizures Patient still having seizures he had one this morning but is alert responsive cooperative eating and drinking Review of Systems 10-point ROS is otherwise unremarkable Physical Examination - Vital Signs Temperature: 96.7 F Blood Pressure: 104/57 Pulse: 50 Respirations: 15 Pulse Ox (%): 97 - Physical Exam General: In no apparent distress, Oriented x3 Cardiovascular: No edema, Normal S1 S2 Gastrointestinal: Normal bowel sounds, Soft and benign Neurological: Normal speech, Normal strength at 5/5 x4 extr, Cranial nerves 3-12 intact Assessment And Plan - Current Problems (Diagnosis) (1) Seizures Current Visit: Yes Status: Acute Plan: She is 41 years of age awaiting transfer to [facility] for continuous EEG monitoring with recurrent refractory seizures patient is eating and drinking he had a seizure this morning in by neurology vital signs are stable labs and meds reviewed
[2022-01-18] MEDS: levETIRAcetam 1,000 MG in NA CHLORIDE 0.9% 100 ML IV SCH ×2 (09:50→22:20)
[2022-01-18] MEDS: PHENYTOIN IV SCH ×2 (09:51→21:30)
[2022-01-18] MEDS: NA CHLORIDE 0.9% IV SCH ×2 (09:51→21:30)
[2022-01-18] MEDS: DIVALPROEX DR 250 MG TAB PO SCH ×2 (09:54→21:00)
[2022-01-18] MEDS ORDERED: POTASSIUM CL SA 10 MEQ TAB PO ONE (10:00)
[2022-01-19 05:11] LABS: BUN Blood Urea Nitrogen 11 mg/dL (7-18); Bicarbonate 30 mmol/L (21-32); Glucose Level 88 mg/dL (74-106); Potassium 3.9 mmol/L (3.5-5.1); Sodium Level 140 mmol/L (136-145)
[2022-01-19] MEDS: SUCRALFATE 1 GM TABLET PO SCH ×2 (08:18→20:57)
[2022-01-19] MEDS: PANTOPRAZOLE 40MG TABLET PO SCH ×2 (08:18→21:00)
[2022-01-19] MEDS: DIVALPROEX DR 500MG TAB PO SCH ×3 (08:19→20:40)
[2022-01-19] MEDS: ENOXAPARIN 40 MG/0.4 ML SQ SCH (08:19)
[2022-01-19] MEDS: GABAPENTIN 300 MG CAP PO SCH ×2 (08:19→21:06)
[2022-01-19] MEDS: DIVALPROEX DR 250 MG TAB PO SCH ×3 (08:19→20:40)
[2022-01-19] MEDS: LORazepam 2 MG/ML VIAL IV PRN ×2 (09:02→19:20)
[2022-01-19] MEDS: PHENYTOIN IV SCH (09:08)
[2022-01-19] MEDS: NA CHLORIDE 0.9% IV SCH (09:08)
[2022-01-19] MEDS: levETIRAcetam 1,000 MG in NA CHLORIDE 0.9% 100 ML IV SCH ×2 (09:08→21:04)
[2022-01-19] MEDS ORDERED: NA CHLORIDE 0.9% 250 ML ONE (09:15)
--- NOTE | 2022-01-19 11:28 | EKG ---
Test Date: 2022-01-14 Test Time: 17:34:55 Aerodynamicist: MARIE MEASUREMENT RESULTS: Intervals: Rate: 60 WA: 158 QRSD: 102 QT: 432 QTc: 432 [place]: P: 39 WA: 158 QRS: 79 T: 63 INTERPRETIVE STATEMENTS: Normal sinus rhythm Normal ECG Compared to ECG 09/17/2021 13:24:23 Sinus bradycardia no longer present Electronically Signed On 01-19-22 11:14:39 CDT by Mukul Tarango
[2022-01-19] MEDS ORDERED: PHENYTOIN Inj 1,000 MG in NA CHLORIDE 0.9% 100 ML IV STA (12:45)
--- NOTE | 2022-01-19 12:55 | P.PN ---
Subjective Date of Service: 01/19/22 Chief Complaint: Recurrent refractory seizures Nursing staff report patient had a seizure episode this morning that lasted for about 5 minutes. Patient was awake and interacting meaningfully during my encounter this morning. Physical Examination - Vital Signs Temperature: 98 F Blood Pressure: 104/58 Pulse: 54 Respirations: 14 Pulse Ox (%): 98 Assessment And Plan - Plan Physical exam GEN: Awake and interactive HEENT: RIOS, EOMI, sclera anicteric CV: Regular rate and rhythm, no edema Pulm: Clear to auscultation bilaterally. ABD: Soft, nontender, nondistended Neuro:moves all extremities, normal speech. Problem List Breakthrough seizures, h/o eplipetic and nonepileptic seizures Juarez's esophagus/GERD Hypertension loaded with keppra in ED Patient continues to experience intermittent seizures. Seen by neurology-Dr. Earl possible pseudoseizure UDS positive for THC and metamphetamine. Dr. Earl recommend transfer to tertiary center for continuous EEG monitoring, eval for pseudoseizures, patient's seizures refractory to multiple antiepileptics. Dilantin level is low today. Dr. Earl recommended loading dose of Dilantin today. Continue current antiepileptics-Depakote, Dilantin and Keppra. Accepted to [facility], pending ICU bed DVT PPX: Lovenox Code status: Full
--- NOTE | 2022-01-19 19:14 | P.DS ---
Admission Date: 01/15/22 Discharge Date: 01/19/22 Reason for Admission: Recurrent refractory seizures Consultations: Neurology-Dr. Earl - Problems (1) Seizures Current Visit: Yes Status: Acute (2) Barretts esophagus Current Visit: No Status: Acute (3) Hypertension Current Visit: No Status: Acute Brief History of Present Illness: 41-year-old male with history of depression, GERD, hypertension and seizure disorder presents emergency room after having a seizure. Patient lives at home with his . He reported that he does have daily seizures although this seizure lasted much longer and was much more intense than normal. Patient remained postictal throughout his ED stay, was having some focal seizures. Patient's neurologist was contacted who recommended hospitalization, and continuation of his home medications in addition to loading dose of Keppra. Hospital Course: Problem List Breakthrough seizures, h/o eplipetic and nonepileptic seizures Juarez's esophagus/GERD Hypertension Patient loaded with keppra in ED and admitted for further management He continued to experience intermittent seizures. Seen by neurology-Dr. Earl Possible pseudoseizure contemplated. UDS positive for THC and metamphetamine. Dr. Earl recommend transfer to tertiary center for continuous EEG monitoring, eval for pseudoseizures. Patient's seizures had been refractory to m ultiple antiepileptics. Dilantin level is low today. Dr. Earl recommended loading dose of Dilantin which was given today. Current antiepileptics include-Depakote, Dilantin and Keppra. Accepted to [facility]. He is clinically stable for transfer. Vital Signs/Physical Exam: Temp Pulse Resp BP Pulse Ox 97.6 F 62 15 125/77 99 01/19/22 16:00 01/19/22 18:00 01/19/22 18:00 01/19/22 18:00 01/19/22 18:00 General: Alert, In no apparent distress, Oriented x3 HEENT: Mucous membr. moist/pink Neck: JVD not distended Respiratory: Clear to auscultation bilaterally, Normal air movement Cardiovascular: No edema, Regular rate/rhythm, Normal S1 S2 Gastrointestinal: Normal bowel sounds, Soft and benign, Non-distended, No tenderness Musculoskeletal: No swelling Integumentary: No rashes Neurological: Normal strength at 5/5 x4 extr Laboratory Data at Discharge: WBC 5.6 K/uL (4.3-10.9) 01/17/22 05:31 Hgb 11.4 g/dL (13.6-17.9) L 01/17/22 05:31 Hct 35.1 % (39.6-49.0) L 01/17/22 05:31 Plt Count 242 K/uL (152-406) 01/17/22 05:31 PT 9.9 SECONDS (9.5-12.5) 01/14/22 17:26 INR 0.90 01/14/22 17:26 APTT 28.6 SECONDS (24.3-36.9) 01/14/22 17:26 Sodium 140 mmol/L (136-145) 01/19/22 04:42 Potassium 3.9 mmol/L (3.5-5.1) 01/19/22 04:42 BUN 11 mg/dL (7-18) 01/19/22 04:42 Creatinine 0.69 mg/dL (0.55-1.3) 01/19/22 04:42 Glucose 88 mg/dL (74-106) 01/19/22 04:42 Magnesium 1.9 mg/dL (1.8-2.4) 01/18/22 04:50 Total Bilirubin 0.2 mg/dL (0.2-1.0) 01/18/22 04:50 AST 14 U/L (15-37) L 01/18/22 04:50 ALT 21 U/L (12-78) 01/18/22 04:50 Alkaline Phosphatase 106 U/L (45-117) 01/18/22 04:50 Home Medications: Fluoxetine HCl [Prozac*] 2 tab PO DAILY 11/04/20 Baclofen 10 mg PO BID 01/15/22 Divalproex Sodium [Depakote] 750 mg PO BID 01/15/22 Gabapentin 600 mg PO BID 01/15/22 Pantoprazole [Protonix Tab] 40 mg PO BID 01/15/22 Phenytoin Sodium Extended [Dilantin] 300 mg PO BEDTIME 01/15/22 Sucralfate [Carafate -Tab] 1 gm PO BID 01/15/22 levETIRAcetam [Keppra*] 100 mg PO BID 03/31/22 Followup: NONE,NONE [Primary Care Provider] - Time spent managing pt's care (in minutes): 36
[2022-01-19] MEDS ORDERED: PHENYTOIN NA 100 MG/2 ML ONE (20:25)
[2022-01-19] MEDS ORDERED: NA CHLORIDE 0.9% 50 ML ONE (20:28)
[2022-01-19 20:38] VITALS: TEMP 98
[2022-01-19] MEDS ORDERED: PHENYTOIN IV SCH (21:00)
[2022-01-19] MEDS ORDERED: NA CHLORIDE 0.9% IV SCH (21:00)
[2022-01-19 21:01] VITALS: O2SAT 99
[2022-01-19 21:43] VITALS: BP 132/85
== END 2022-01-19 21:45 | disposition short-term general hospital (02) | DRG 101 ==
LOC: ER 17:00 → ERHOLD 20:20 → 2ND 01-15 00:14 → OBSVTOIN 01-15 13:39 → INTOOBSV 01-15 13:39 → 3RD-ICU 01-17 15:14
PROVIDERS: ADMIT Hospitalist; ATTEND Internal Medicine
DX: G40.909 Epilepsy, unspecified, not intractable, without status epilepticus (principal); K21.9 Gastro-esophageal reflux disease without esophagitis; I10 Essential (primary) hypertension; K22.70 Barrett's esophagus without dysplasia; F17.200 Nicotine dependence, unspecified, uncomplicated; Z86.73 Personal history of transient ischemic attack (TIA), and cerebral infarction without residual deficits; Z90.49 Acquired absence of other specified parts of digestive tract; Z79.82 Long term (current) use of aspirin; Z79.899 Other long term (current) drug therapy; Z20.822 Contact with and (suspected) exposure to COVID-19
CPT/HCPCS: 0240U; 36415; 70450; 71045; 80048; 80053; 80076; 80185; 80307; 80320; 81003; 82550; 83735; 84146; 85025; 85027; 85610; 85730; 93005; 95816; 99285; J1165; J1650; J1953; J2405; J3480; J7030; J7040; J7050

== ENCOUNTER 2022-08-23 14:00 | Emergency (ER) | payer OTHER ==
--- OUTSIDE RECORDS SUMMARY | 2022-08-23 14:05 | XMS REPORT | Continuity of Care Document ---
:1980 Author Organization [facility] t Address [address] [place] [address] Dr. Daugherty [address] [place] [address] Care Team Providers Name Role Phone DEISY AGEE Primary Care Physician Unavailable VIRGINIA LEWIS Attending Clinician Unavailable JUAQUIN CLARKE Attending Clinician Unavailable Candice Justin MD Attending Clinician CANDICE JUSTIN Attending Clinician Unavailable Fortion GUAMAN, Hayes Hoover Attending Clinician [phone] Hanane Baker MD Attending Clinician Simba Dubois MD Attending Clinician Patrizia GUAMAN, Fausto Myers Attending Clinician [phone] SIMBA DUBOIS Attending Clinician Unavailable HAYES ORTIZ Attending Clinician Unavailable SUSANNE ROLDAN Attending Clinician Unavailable Susanne Roldan DO Attending Clinician Doctor Unassigned, [place] Attending Clinician Unavailable Shubham DOMINGUEZ, Barbara Delgadillo Attending Clinician GAVIOTA VALENTINE Attending Clinician Unavailable Jose Day MD Attending Clinician Abdiaziz Jaimes MD Attending Clinician Gaviota Valentine MD Attending Clinician Ezra GUAMAN, Kirill Jensen Attending Clinician Saloni CANALES, Dee Suarez Attending Clinician Letitia GUAMAN, Boo Tejeda Attending Clinician BOO DONG Attending Clinician Unavailable BOO DONG Attending Clinician Unavailable VIRGINIA LEWIS Admitting Clinician Unavailable JUAQUIN CLARKE Admitting Clinician Unavailable CANDICE JUSTIN Admitting Clinician Unavailable HAYES ORTIZ Admitting Clinician Unavailable GAVIOTA VALENTINE Admitting Clinician Unavailable Aki GUAMAN, Gaviota Admitting Clinician SCOTT JIM Admitting Clinician Unavailable Payers Payer Name Policy Type Policy Number Effective Date Expiration Date Digna DOLL FROM [id number] 2021 [facility] 00:00:00 Problems Condition Condition Condition Status Onset Resolution Last Treating Co mments Source Name Details Category Date Date Treatment Clinician Date Impaired Impaired Disease [facility] and ADLs and ADLs 00:00: Medica l 00 Center TIA TIA Disease Active [facility] (transient (transient 4-05 [facility] ischemic ischemic 00:00: Medica l attack) attack) 00 Center HTN HTN Disease Active [facility] (hypertens (hypertens 4-05 [facility] ion) ion) 00:00: Medical 00 Center Substance Substance Disease Active [facility] abuse abuse 4-05 [facility] 00[facility] 00 Center Status Status Disease Active [facility] epilepticu epilepticu 4-05 [facility] s s 00:00: Medical 00 Center Depression Depression Disease Active [facility] 00[facility] Medical 00 Center GERD GERD Disease Active [facility] (gastroeso (gastroeso 4-05 [facility] phageal phageal 00:00: Medical reflux reflux 00 Center disease) disease) Seizure Seizure Disease Active [facility]04 [facility] 00:[facility]: Medical 00 Center AMS AMS Disease Active 2020-10 Univers (altered (altered 1-05 ity of mental mental 00:00: [place] status) status) 00 Medical Branch Obesity Obesity Disease Active 2020-10 Univers (BMI (BMI 1-05 ity of 30-39.9) 30-39.9) 00:00: [place] [id number] Medical Branch Acute Acute Disease Active 2020-10 Overview: Univer s blood loss blood loss 05 Formattin ity of anemia anemia 00:00: g of this [place] note Medical might be Branch different from the original. Added automatic ally from request for surgery [id number] [place] Disease Active [facility] lithiasis lithiasis 11-07 [facility] s 00:00: Medical 00 Center Tingling Tingling Disease Active [facility] of right of right 07-08 [facility] upper upper 00:00: Medical extremity extremity 00 Cent er Tingling Tingling Disease Active [facility] 00:00: Medical 00 Center Allergies, Adverse Reactions, Alerts Allergy Allergy Status Severity Reaction(s) Onset Inactive Treating Comm ents Source Name Type Date Date Clinician NO KNOWN Drug Active Univers ALLERGIE Class ity of S [facility] NO KNOWN Allergy Active [facility] ALLERGIE S Social History Social Habit Start Date Stop Date Quantity Comments Source Exposure to Not sure [facility] SARS-CoV-2 (event) [facility] History of tobacco Cigarette Smoker [place] [facility] History SDOH [facility] Alcohol Std Drinks Medica l Center History SDOH [facility] Alcohol Binge Medical Roddy ter History SDOH [facility] Alcohol Comment Medical C enter History SDOH [facility] Transport Non-Med Medical Center History SDOH [facility] Housing Places Medical Ce nter Lived History SDOH 2022-01-22 2022-01-[address] [facility] Housing Unable to 00:00:00 00:00:00 Medical Center Pay History SDOH 2022-01-21 2022-01-[address] [facility] Transport Med 00:00:00 00:00:[address] History SDOH 2022-01-21 2022-01-[address] [facility] Housing Homeless 00:00:00 00:00:00 Medical Center Last Year Tobacco Comment 2021-08-22 2021-08-22 stopped smoking Univ ersity of 00:00:00 00:00:00 last week [facility] Alcohol intake 2020-11-11 2020-11-11 Ex-drinker [facility] 00:00:00 00:00:00 (finding) Medical Center History SDOH 2020-11-07 2020-11-[address] [facility] Alcohol Frequency 00:00:00 00:00:00 [facility] Cigarettes smoked 2020-08-06 2020-08-06 Univers ity of current (pack per 00:00:00 00:00:00 [facility] ) - Reported Branch Tobacco use and 2020-07-08 2020-07-[address] [facility] exposure 00:00:00 00:00:00 [facility] Sex Assigned At [address] [facility]ita kes 00:00:00 00:00:00 [facility] Smoking Status Start Date Stop Date Source Current every day smoker 2020-08-06 00:00:00 Uni versity of [facility] Medications Ordered Filled Start Stop Current Ordering Indication Dosage Frequency Signature Comments Components Source Medication Medication Date Date Medication? Clinician (SIG) Name Name nicotine 2021- No 1{patch QD Place [address] (NICODERM 4-12 05-12 } patch onto Luis es CQ) 14 00:00: 23:59 the skin Medica l mg/24 hr 00 :00 daily for Center patch 30 days. fLUoxetine 2021- No 20mg QD Take [address] (PROzac) 20 4-12 05-12 capsule Luke s MG capsule 00:00: 23:59 (20 mg Medi tapan 00 :00 total) by Center mouth daily for 30 days. fluoxetine 2021- No 10mg QD Take [address] HCl 4-11 04-11 by mouth [facility] (FLUOXETINE 14:42: 00:00 daily . Me dical ORAL) 18 :00 Center promethazin 2021- No 25mg Take [address] [facility] e 4-11 04-11 by mouth [facility] (PHENERGAN) 14:42: 00:00 every 12 M edical 25 MG 18 :00 (twelve) Center tablet hours as needed for Nausea. thiamine 2021- No 100mg QD Take [address] 100 MG 4-11 04-11 mg by [facility] tablet 14:42: 00:00 mouth Medical 18 :00 daily. Center levETIRAcet 2021-2021- No 1000mg Q.5D Take 1,[address] am (KEPPRA) 4-11 04-11 mg by [facility] 1000 MG 14:42: 00:00 mouth 2 Medica l tablet 18 :00 (two) Center times daily. divalproex 2021-0 2- No 750mg Q.5D Take [address] (DEPAKOTE) 4-11 04-11 mg by [facility] 500 MG EC 14:42: 00:00 mouth 2 Medi tapan tablet 18 :00 (two) Center times daily. baclofen 2021-0 2021- No 10mg Q.5D Take [address] (LIORESAL) - 04-11 by mouth 2 [facility] kes 10 MG 14:42: 00:00 (two) Medical tablet 18 :00 times Center daily. sucralfate 2021-0 2021- No 1g Q.5D Take [address] (CARAFATE) 01-26 04-11 by mouth 2 [facility] kes 1 gram 14:42: 00:00 (two) Medical tablet 18 :00 times Center daily. gabapentin 2021-0 2021- No 600mg Q.5D Take [address] (NEURONTIN) 4-11 04-11 mg by [facility] 600 MG 14:42: 00:00 mouth 2 Medical tablet 18 :00 (two) Center times daily. pantoprazol 2021-0 2021- No 40mg Q.5D Take [address] [facility] e - 04-11 by mouth 2 [facility] (PROTONIX) 14:42: 00:00 (two) Medic al 40 MG 18 :00 times Center tablet daily. levETIRAcet 2021-2021- No 1000mg Take [address] am (KEPPRA) 4- 05-11 tablet [facility] 1000 MG 00:00: 23:59 (1,000 mg Medi tapan tablet 00 :00 total) by Center mouth every 12 (twelve) hours for 30 days. gabapentin 2021-0 2021- No 300mg Q.[id number] Take [address] (NEURONTIN) 4-11 05-11 [id number] capsule [facility] 300 MG 00:00: 23:59 3D (300 mg Medical capsule 00 :00 total) by Center mouth 3 (three) times daily for 30 days. sucralfate 2021- No 1g Take [address] (CARAFATE) 01-26 tablet (1 Luis es 1 gram 00:00: 23:59 g total) Medica l tablet 00 :00 by mouth 2 Center (two) times daily before meals for 30 days. divalproex 2021- No 750mg Q.[id number] Take [address] (DEPAKOTE) 01-26 [id number] tablets [facility] 250 MG EC 00:00: 23:59 3D (750 mg Medi tapan tablet 00 :00 total) by Center mouth 3 (three) times daily for 30 days. pantoprazol 2021-2021- No 40mg Q.5D Take [address] e 01-26 tablet (40 [facility] (PROTONIX) 00:00: 23:59 mg total) M edical 40 MG 00 :00 by mouth 2 Center tablet (two) times daily for 30 days. thiamine 2021-2021- No 100mg QD Take 1 [facility] t 100 MG 01-26 tablet [facility] tablet 00:00: 23:59 (100 mg Medical 00 :00 total) by Center mouth daily for 30 days. senna-docus 2021- No 1{tbl} QD Take [address] ate 01-26 tablet by [facility] (SENOKOT S) 00:00: 23:59 mouth Medi tapan 8.6-50 mg 00 :00 nightly Center per tablet for 30 days. phenytoin 2021- No 300mg QD Take [address] extended 01-23 04-08 mg by [facility] (DILANTIN) 08:05: 00:00 mouth Medic al 300 MG ER 14 :00 nightly. Center capsule omeprazole 2021-2021- No 40mg Q.5D Take [address] (PriLOSEC) 01-20-05 by mouth 2 [facility] 40 MG 17:21: 00:00 (two) Medical capsule 59 :00 times Center daily. aspirin 81 2021-2021- No 81mg QD Take [address] MG chewable 01-20-05 by mouth Luis es tablet 17:21: 00:00 daily. Medical 59 :00 Center divalproex 2020-10- No 250mg 250 mg, Un oz ER 11-16 11-30 Oral, ity of (DEPAKOTE 00:45: 01:00 ONCE, [...] 09/15/21 at 1645, ELEONORA pantoprazol 2020-10 Yes [id number] 40mg Take 1 Univers e 40 mg EC 1-09 tablet by ity of tablet 00:00: mouth 2 [place] 00 (two) Medical times Branch daily. lidocaine 2020-10 Yes [id number] 10mL Take 10 mL Univers 2% viscous 1-09 by mouth ity o f 2 % 00:00: every 6 [place] solution 00 (six) Medical hours as Branch needed for Oral mucosal pain. sucralfate 2020-10 Yes [id number] 1000mg Take 10 mL Univers 100 mg/mL 1-09 by mouth 4 ity of suspension 00:00: (four) [place] 00 times Medical daily. Branch pantoprazol 2020-10 Yes [id number] 40mg Take 1 Univers e 40 mg EC 1-09 tablet by ity of tablet 00:00: mouth 2 [place] 00 (two) Medical times Branch daily. lidocaine 2020-10 Yes [id number] 10mL Take 10 mL Univers 2% viscous 1-09 by mouth ity o f 2 % 00:00: every 6 [place] solution 00 (six) Medical hours as Branch needed for Oral mucosal pain. sucralfate 2020-10 Yes [id number] 1000mg Take 10 mL Univers 100 mg/mL 1-09 by mouth 4 ity of suspension 00:00: (four) [place] 00 times Medical daily. Branch pantoprazol 2020-10 Yes [id number] 40mg Take 1 Univers e 40 mg EC 1-09 tablet by ity of tablet 00:00: mouth 2 [place] 00 (two) Medical times Branch daily. lidocaine 2020-10 Yes [id number] 10mL Take 10 mL Univers 2% viscous 09 by mouth ity o f 2 % 00:00: every 6 [place] [id number] (six) Medical hours as Branch needed for Oral mucosal pain. sucralfate 2020-10 Yes [id number] 1000mg Take 10 mL Univers 100 mg/mL 09 by mouth 4 ity of suspension 00:00: (four) [place] 00 times Medical daily. Branch levETIRAcet 2020-10 Yes Univer s am 500 mg 1-03 ity of tablet 00:00: Medical Branch divalproex 2020-10 Yes Univers 500 mg EC -03 ity of tablet 00:00: Medical Branch levETIRAcet 2020-10 Yes Univer s am 500 mg 1-03 ity of tablet 00:00: Medical Branch divalproex 2020-10 Yes Univers 500 mg EC -03 ity of tablet 00:00: Medical Branch levETIRAcet 2020-10 Yes Univer s am 500 mg 1-03 ity of tablet 00:00: Medical Branch divalproex 2020-10 Yes Univers 500 mg EC 1-03 ity of tablet 00:00: Medical Branch FLUoxetine 2020-10 Yes 10mg Take 10 mg U nivers 10 mg 0-22 by mouth ity of tablet 00:00: daily. [facility] Branch FLUoxetine 2020-10 Yes 10mg Take 10 mg U nivers 10 mg 0-22 by mouth ity of tablet 00:00: daily. [place] [facility] Branch FLUoxetine 2020-10 Yes 10mg Take 10 mg U nivers 10 mg 0-22 by mouth ity of tablet 00:00: daily. [facility] Branch gabapentin 2020-10 Yes 300mg Take 300 [...] by ity of capsule 00:00: mouth 3 [place] (three) Medical times Branch daily. baclofen 10 2020-10 Yes TAKE ONE Un oz mg tablet 0-21 (1) ity of 00:00: TABLET(S) BY MOUTH Medical THREE Branch TIMES A DAY NEEDED. gabapentin 2020-10 Yes 300mg Take 300 Un oz 300 mg 0-21 mg by ity of capsule 00:00: mouth 3 00 (three) Medical times Branch daily. baclofen 10 2020-10 Yes TAKE ONE Un oz mg tablet 0-21 (1) ity of 00:00: TABLET(S) BY MOUTH Medical THREE Branch TIMES A DAY NEEDED. metoclopram Yes Univer s steven HCl 10 8-09 ity of mg tablet 00:00: Medical Branch metoclopram Yes Univer s steven HCl 10 8-09 ity of mg tablet 00:00: Medical Branch metoclopram Yes Univer s steven HCl 10 8-09 ity of mg tablet 00:00: Medical Branch ondansetron Yes [id number] 4mg Take 1 Univers (ZOFRAN 5-30 tablet by ity of ODT) 4 mg 00:00: mouth [place] disintegrat 00 every 8 Medic al ing tablet (eight) Branch hours as needed for Nausea and Vomiting (N/V). ondansetron Yes [id number] 4mg Take 1 Univers (ZOFRAN 5-30 tablet by ity of ODT) 4 mg 00:00: mouth [place] disintegrat 00 every 8 Medic al ing tablet (eight) Branch hours as needed for Nausea and Vomiting (N/V). ondansetron Yes [id number] 4mg Take 1 Univers (ZOFRAN 5-30 tablet by ity of ODT) 4 mg 00:00: mouth [place] disintegrat 00 every 8 Medic al ing tablet (eight) Branch hours as needed for Nausea and Vomiting (N/V). Vital Signs Vital Name Observation Time Observation Value Comments Source HEIGHT 2020-11-07 15:01:00 180.3 cm WEIGHT 2020-11-07 15:01:00 81.647 kg WEIGHT 2022-01-29 05:19:00 107.23 kg WEIGHT 2022-01-28 06:12:00 108 kg WEIGHT 2022-01-27 03:18:00 108.5 kg WEIGHT 2022-01-26 05:18:00 108.591 kg HEIGHT 2022-01-25 10:00:00 180.3 cm WEIGHT 2022-01-25 10:00:00 107.956 kg WEIGHT 2022-01-25 06:32:00 107.956 kg WEIGHT 2022-01-24 07:05:00 106.414 kg WEIGHT 2022-01-24 03:17:00 106.414 kg HEIGHT 2022-01-23 12:30:00 180.3 cm WEIGHT 2022-01-23 12:30:00 104.781 kg WEIGHT 2022-01-23 11:31:00 104.781 kg WEIGHT 2022-01-29 05:19:00 107.23 kg WEIGHT 2022-01-28 06:12:00 108 kg WEIGHT 2022-01-27 03:18:00 108.5 kg WEIGHT 2022-01-26 05:18:00 108.591 kg HEIGHT 2022-01-25 10:00:00 180.3 cm WEIGHT 2022-01-25 10:00:00 107.956 kg WEIGHT 2022-01-25 06:32:00 107.956 kg WEIGHT 2022-01-24 07:05:00 106.414 kg WEIGHT 2022-01-24 03:17:00 106.414 kg HEIGHT 2022-01-23 12:30:00 180.3 cm WEIGHT 2022-01-23 12:30:00 104.781 kg WEIGHT 2022-01-23 11:31:00 104.781 kg WEIGHT 2022-01-29 05:19:00 107.23 kg WEIGHT 2022-01-28 06:12:00 108 kg WEIGHT 2022-01-27 03:18:00 108.5 kg WEIGHT 2022-01-26 05:18:00 108.591 kg HEIGHT 2022-01-25 10:00:00 180.3 cm WEIGHT 2022-01-25 10:00:00 107.956 kg WEIGHT 2022-01-25 06:32:00 107.956 kg WEIGHT 2022-01-24 07:05:00 106.414 kg WEIGHT 2022-01-24 03:17:00 106.414 kg HEIGHT 2022-01-23 12:30:00 180.3 cm WEIGHT 2022-01-23 12:30:00 104.781 kg WEIGHT 2022-01-23 11:31:00 104.781 kg HEIGHT 2022-01-20 08:00:00 180.3 cm WEIGHT 2022-01-20 08:00:00 81.6 kg HEIGHT 2022-01-20 06:25:00 180.3 cm WEIGHT 2022-01-20 06:25:00 81.6 kg HEIGHT 2022-01-20 08:00:00 180.3 cm WEIGHT 2022-01-20 08:00:00 81.6 kg HEIGHT 2022-01-20 06:25:00 180.3 cm WEIGHT 2022-01-20 06:25:00 81.6 kg HEIGHT 2022-01-20 08:00:00 180.3 cm WEIGHT 2022-01-20 08:00:00 81.6 kg HEIGHT 2022-01-20 06:25:00 180.3 cm WEIGHT 2022-01-20 06:25:00 81.6 kg Systolic blood 2021-09-16 01:00:00 116 mm[Hg] Univer sity of pressure [facility] Diastolic blood 2021-09-16 01:00:00 53 mm[Hg] [facility] Heart rate 2021-09-16 01:00:00 65 /min General acute hospital Respiratory rate 2021-09-16 01:00:00 14 /min [facility] Oxygen saturation in 2021-09-16 01:00:00 99 /min [facility] Arterial blood by [facility] Pulse oximetry Branch Body temperature 2021-09-15 21:38:00 36.06 Abeba [facility] [place] [facility] Body height 2021-09-15 21:38:00 175.3 cm General acute hospital Body weight 2021-09-15 21:38:00 86.637 kg General acute hospital BMI 2021-09-15 21:38:00 28.21 kg/m2 General acute hospital HEIGHT 2020-11-07 15:01:00 180.3 cm WEIGHT 2020-11-07 15:01:00 81.647 kg Body weight 2022-01-29 05:19:00 107.23 kg [facility] BMI 2022-01-29 05:19:00 32.99 kg/m2 [facility] Systolic blood 2022-01-29 05:12:00 104 mm[Hg] [facility] Diastolic blood 2022-01-29 05:12:00 56 mm[Hg] [facility] Heart rate 2022-01-29 05:12:00 60 /min [facility] Body temperature 2022-01-29 05:12:00 35.61 Abeba [facility] Respiratory rate 2022-01-29 05:12:00 17 /min [facility] Oxygen saturation in 2022-01-29 05:12:00 95 /min [facility] Arterial blood by Medical Ce nter Pulse oximetry Body height 2022-01-25 10:00:00 180.3 cm [facility] Procedures Procedure Date / Time Performing Clinician Source Performed CBC W/PLT COUNT & AUTO 2022-01-26 04:37:00 Candice Justin [facility] DIFFERENTIAL [place] BASIC METABOLIC PANEL 2022-01-26 04:37:00 Candice Justin [facility] CBC W/PLT COUNT & AUTO 2022-01-26 04:37:00 Candice Justin [facility] DIFFERENTIAL Center CBC W/PLT COUNT & AUTO 2022-01-24 05:29:00 Candice Justin [facility] DIFFERENTIAL [place] COMPREHENSIVE METABOLIC 2022-01-24 05:29:00 Candice Justin [facility] PANEL Center CBC W/PLT COUNT & AUTO 2022-01-24 05:29:00 Candice Justin [facility] DIFFERENTIAL [place] VALPROIC ACID LEVEL, 2022-01-24 05:29:00 Sebastian Mendez [facility] TOTAL [place] CBC W/PLT COUNT & AUTO 2022-01-23 04:34:00 Danyell Longo [facility] DIFFERENTIAL [place] Center CBC W/PLT COUNT & AUTO 2022-01-23 04:34:00 Danyell Longo [facility] DIFFERENTIAL [place] Center BASIC METABOLIC PANEL 2022-01-23 04:31:[address] [facility] Leia [place] MAGNESIUM 2022-01-23 04:31:00 [facility] [place] PHOSPHORUS 2022-01-23 04:31:00 [facility] & 2022-01-22 17:41:00 Jaylen Mcnulty [facility] REF LABS) [facility] POCT-GLUCOSE METER 2022-01-22 11:48:00 [facility] XR HAND 3 VIEWS LEFT 2022-01-22 10:59:00 Meghna [facility] POCT-GLUCOSE METER 2022-01-22 07:59:00 Meghan [facility] EEG 12-26 HR CONTINUOUS 2022-01-22 06:36:00 [facility]hna [facility] MONITORING WITH VIDEO Center POCT-GLUCOSE METER 2022-01-22 06:16:00 Meghna [facility] CBC W/PLT COUNT & AUTO 2022-01-22 06:09:00 Donta [facility] CBC W/PLT COUNT & AUTO 2022-01-22 06:09:00 [facility] METABOLIC [facility] 2022-01-22 06:09:00 [facility] [place] MAGNESIUM 2022-01-22 06:09:00 [facility] [place] PHOSPHORUS 2022-01-22 06:09:00 Donta [facility] POCT-GLUCOSE METER 2022-01-21 23:47:00 [facility]hna [facility] POCT-GLUCOSE METER 2022-01-21 16:14:00 Meghna [facility] VALPROIC ACID LEVEL, 2022-01-21 14:00:00 Bonnie Duran [facility] POCT-GLUCOSE METER 2022-01-21 08:54:00 Simba Dubois [facility] EEG 12-26 HR CONTINUOUS 2022-01-21 07:05:00 Alan [facility] MONITORING WITH VIDEO Center CBC W/PLT COUNT & AUTO 2022-01-21 05:14:00 [facility] [place] CBC W/PLT COUNT & AUTO 2022-01-21 05:14:[address] [facility] DIFFERENTIAL Leia [place] BASIC METABOLIC PANEL 2022-01-21 05:14:[address] [facility]ia [place] MAGNESIUM 2022-01-21 05:14:00 [facility] [place] PHOSPHORUS 2022-01-21 05:14:00 Donta [facility] POCT-GLUCOSE METER 2022-01-20 21:55:00 [facility] POCT-GLUCOSE METER 2022-01-20 16:15:[facility] MAGN[facility]UM 2022-01-20 13:10:00 Fortino [facility] POTASSIUM 2022-01-20 13:10:00 [facility] POCT-GLUCOSE METER 2022-01-20 11:00:00 [facility] CBC W/PLT COUNT & AUTO 2022-01-20 04:52:00 Bianca Tse [facility] DIFFERENTIAL Center CBC W/PLT COUNT & AUTO 2022-01-20 04:52:00 Bianca Tse [facility] DIFFERENTIAL Center HIGH SENSITIVITY 2022-01-20 04:52:00 Bianca Tse [facility] TROPONIN I Center LACTIC ACID, VENOUS 2022-01-20 04:52:00 Bianca Tse [facility] COMPREHENSIVE METABOLIC 2022-01-20 04:51:00 Bianca Tse [facility] PANEL Center MAGNESIUM 2022-01-20 04:51:00 DedrickBianca [facility] PHOSPHORUS 2022-01-20 04:51:00 Dedrick [facility] PHENYTOIN LEVEL, TOTAL 2022-01-20 04:51:00 Bianca Tse I [facility] PHENYTOIN LEVEL, TOTAL 2022-01-20 04:51:00 DedrickBianca [facility] AND FREE Center VALPROIC ACID LEVEL, 2022-01-20 04:51:00 [facility] VITAM[facility] B12 AND FOLATE 2022-01-20 04:51:00 Bianca Tse [facility] TSH/FREE T4 IF INDICATED 2022-01-20 04:51:00 Barclay [facility] CBC WITH DIFF 2021-09-15 22:38:00 Susanne Roldan [facility] COMP. METABOLIC PANEL 2021-09-15 21:57:00 Susanne Roldan [facility] ([id number]) [facility] VALPROIC ACID, TOTAL 2021-09-15 21:57:00 Susanne Roldan [facility] LACTIC ACID WHOLE BLOOD 2021-09-15 21:54:00 Susanne Roldan [facility] EXTERNAL PROVIDER 2021-09-09 06:01:00 Doctor Unassigned, No [facility] RECORDS Name [facility] Branch Plan of Care Planned Activity Planned Date Details Comments Source Future Scheduled 2024-08-25 Lipid panel [facility] s Test 00:00:00 (procedure) [code = Medical Center [id number]] Future Scheduled 2022-06-18 INFLUENZA VACCINE (#1) [facility] Test 00:00:00 [code = INFLUENZA Medical Ce nter VACCINE (#1)] Future Scheduled 1998 DTAP/TDAP/TD VACCINES [facility] Test 00:00:00 (1 - Tdap) [code = Medical C enter DTAP/TDAP/TD VACCINES (1 - Tdap)] Future Scheduled 1997 HEPATITIS C SCREENING [facility] Test 00:00:00 [code = HEPATITIS C Medical Center SCREENING] Future Scheduled [address] [facility] Test 00:00:00 0-64 YRS (1 - PCV) Medical C enter [code = PNEUMOCOCCAL VACCINE 0-64 YRS (1 - PCV)] Future Scheduled 1979 COVID-19 VACCINE (#1) [facility] Test 00:00:00 [code = COVID-[address] VACCINE (#1)] Encounters Start End Encounter Admission Attending Care Care Encounter Source Date/Time Date/Time Type Type Clinicians Facility Department ID 2021-08-17 Emergency [facility] [id number] Univers 22:09:39 [facility] 2021-07-23 Inpatient ER BARTLEY, [facility] Neurology [id number] 07:45:15 [facility] 2020-11-07 Inpatient UR [facility] Internal [id number] SLE 07:52:00 Charles NELSON 2020-07-08 Inpatient ER [facility] Neurology [id number] [facility] 08:39:03 [facility] 2022-01-23 2022-01-29 Hospital [facility] [id number] 11:27:00 11:25:00 Encounter Luis Coyle [facility] 2022-01-23 2022-01-29 Inpatient [facility] PM\\T\\R [id number] SLE 11:27:00 11:25:00 CANDICE COYEL 2022-01-19 2022-01-23 [facility] Fortino Hayessavannah Hoover [facility] [id number] [facility] 22:47:00 10:53:00 Encounter Hanane Baker [facility] Fausto Acharya [facility] 2022-01-19 2022-01-23 Inpatient UR [facility] [id number] [facility] 22:47:00 10:53:00 [facility] 2022-01-23 2022-01-23 Travel [facility] [id number] [facility]:00 [facility] 2022-01-19 2022-01-19 Travel [facility] [id number] [facility] 00[facility]00 [facility] 2022-01-15 2022-01-[address] [facility] [id number] [facility] 00:[facility]:00 ion [facility] 2021-09-15 2021-09-15 [facility] [id number] Univers 15:37:00 20:00:00 SUSANNE ity [facility] 2021-09-15 2021-09-15 [facility] 1.2.840.114 [id number] Univers 15:37:00 20:00:00 Susanne FAN 350.1.13.10 it[place] of [place] [phone] [facility] 084 Branch 2021-09-09 2021-09-09 Orders Doctor JENNIFER 1.2.840.114 [id number] Univers 00:00:00 00:00:00 Only Unassigned, PARVIN 350.1.13.10 [facility] 4.2.7.2.686 [place] [phone] [facility] 009 Branch 2021-08-28 2021-08-28 Transition RUY Jalloh 1.2.840.114 [id number] Univers 00:00:00 00:00:00 of Care Barbara MCCAULEY 350.1.13.10 i ty of [place].2.686 [place] [phone] [facility] 403 Branch 2021-08-22 2021-08-27 Inpatient X [facility] [id number] Univers 14:14:00 18:00:00 General acute hospital 2021-08-22 2021-08-27 [facility] Jose Day 1.2.840.1 14 [id number] Univers 14:14:00 18:00:00 Encounter Abdiaziz Jaimes 350.1.13.10 [facility] 4.2.7.2.686 [place] [phone] [facility] 093 Branch 2021-08-22 2021-08-27 Inpatient X AKI, [facility] [id number] Univers 14:14:00 18:00:00 GAVIOTA ity of [facility] 2021-08-26 2021-08-26 [facility] 1.2.135.073 [id number] Univers 07:30:00 08:12:00 Kirill MARCANO 350.1.13.10 ity of [place] 4.2.7.2.686 [place] as BLDG [phone] [facility] 020 Branch 2021-03-16 2021-03-16 Emergency [facility] 1.2.078.533 [id number] 01:37:00 03:38:00 Dee Fan 350.1.13.10 [place] 4.2.7.2.686 [place] [phone] [facility] 2021-03-16 2021-03-16 Emergency [facility] 1.2.537.846 [id number] [facility] 01:37:00 03:38:00 Dee Fan 350.1.13.10 ity of [place] 4.2.7.2.686 [facility] [phone] [facility] 084 Branch 2020-12-12 2020-12-12 Orders Doctor RODRIGUEZ 1.2.840.114 [id number] 00:00:00 00:00:00 Only Unassigned, PARVIN 350.1.13.10 [place] [facility] 4.2.7.2.686 [phone] 009 2020-12-12 2020-12-12 Orders Doctor RODRIGUEZ 1.2.840.114 [id number] Univers 00:00:00 00:00:00 Only UnassignedPARVIN 350.1.13.10 ity of [place] [facility] 4.2.7.2.686 [place] as [phone] [facility] 009 Branch 2020-11-30 2020-11-30 [place] [facility] 1.2.840.114 [id number] 00:00:00 00:00:00 Boo Fan 350.1.13.10 [place] 4.2.7.2.686 Professio [phone] [address] 2020-11-30 2020-11-30 Telephone [facility] 1.2.840.114 [id number] Univers 00:00:00 00:00:00 Boo [place] 350.1.13.10 it[place] of [place] [phone] [address] 2020-10-31 2020-10-31 Telephone [facility] 1.2.840.114 [id number] 00:00:00 00:00:00 Boo Fan 350.1.13.10 [place] 4.2.7.2.686 Professio [phone] [address] 2020-10-31 2020-10-31 Telephone [facility] 1.2.840.114 [id number] Univers 00:00:00 00:00:00 Boo Tejeda Trudy 350.1.13.10 ity of [place] [phone] [address] 2020-09-06 2020-09-06 Orders Doctor RODRIGUEZ 1.2.840.114 [id number] 00:00:00 00:00:00 Only Unassigned, PARVIN 350.1.13.10 [place] [facility] 4.2.7.2.686 [phone] [facility] 2020-09-06 2020-09-06 Orders Doctor RODRIGUEZ 1.2.840.114 [id number] Univers 00:00:00 00:00:00 Only Unassigned, PARVIN 350.1.13.10 ity of [place] [facility] 4.2.7.2.686 [place] as [phone] [address] 2020-08-18 2020-08-18 Orders Doctor RODRIGUEZ 1.2.840.114 [id number] 00:00:00 00:00:00 Only Unassigned, PARVIN 350.1.13.10 [place] [facility] 4.2.7.2.686 [phone] [facility] 2020-08-18 2020-08-18 Orders Doctor JENNIFER 1.2.840.114 [id number] Univers 00:00:00 00:00:00 Only Unassigned, PARVIN 350.1.13.10 ity of [place] [facility] 4.2.7.2.686 [place] as [phone] [address] 2020-08-06 2020-08-14 Office Letitia [facility] 1.2.840.114 [id number] 08:52:45 13:22:47 Visit Boo Fan 350.1.13.10 [place] 4.2.7.2.686 Professio [phone] [address] 2020-08-06 2020-08-14 Office Letitia [facility] 1.2.840.114 [id number] Univers 08:52:45 13:22:47 Visit Boo Fan 350.1.13.10 ity of [place] [phone] [address] 2020-08-13 2020-08-13 Telephone Letitia [facility] 1.2.840.114 [id number] Univers 00:00:00 00:00:00 Boo Nikhil Fan 350.1.13.10 [place]y of [place] [phone] [address] 2020-08-06 2020-08-06 Outpatient R LETITIA BOO [facility] [id number] Univers 08:40:00 08:40:00 BOO DONG itdenny [facility] 2020-08-06 2020-08-06 Orders Doctor JENNIFER 1.2.840.114 [id number] Univers 00:00:00 00:00:00 Only Unassigned, PARVIN 350.1.13.10 ity of [place] [facility] 4.2.7.2.686 [place] as [phone] [address] Results Test Description Test Time Test Comments Results Result Comments Source BASIC METABOLIC PANEL 2022-01-26 06:00:48 Test Item Value Reference Range Interpretation Comme nts SODIUM (BEAKER) (test code 140 meq/L 136-145 = 381) POTASSIUM (BEAKER) (test 3.7 meq/L 3.5-5.1 code = 379) CHLORIDE (BEAKER) (test 109 meq/L 98-107 H code = 382) CO2 (BEAKER) (test code = 27 meq/L 22-29 355) BLOOD UREA NITROGEN 15 mg/dL 7-21 (BEAKER) (test code = 354) CREATININE (BEAKER) (test 0.80 mg/dL 0.57-1.25 code = 358) GLUCOSE RANDOM (BEAKER) 94 mg/dL 70-105 (test code = 652) CALCIUM (BEAKER) (test 8.6 mg/dL 8.4-10.2 code = 697) EGFR (BEAKER) (test code = 106 mL/min/1.73 sq m ESTIMATED GFR IS NOT 1092) ACCURATE CRE ATININE CLEARANCE IN SD EDICTING GLOMERULAR FILT RATION RATE. ESTIMATED GFR IS NOT APPLICABLE FOR DIALYSIS PATIENTS. CBC W/PLT COUNT & AUTO [id number] 05:30:33 Test Item Value Reference Range Interpretation Comments WHITE BLOOD CELL COUNT (BEAKER) 6.5 K/ L 3.5-10.5 (test code = 775) RED BLOOD CELL COUNT (BEAKER) 4.83 M/ L 4.63-6.08 (test code = 761) HEMOGLOBIN (BEAKER) (test code = 12.2 GM/DL 13.7-17.5 L 410) HEMATOCRIT (BEAKER) (test code = 39.5 % 40.1-51.0 L 411) MEAN CORPUSCULAR VOLUME (BEAKER) 81.8 fL 79.0-92.2 (test code = 753) MEAN CORPUSCULAR HEMOGLOBIN 25.3 pg 25.7-32.2 L (BEAKER) (test code = 751) MEAN CORPUSCULAR HEMOGLOBIN CONC 30.9 GM/DL 32.3-36.5 L (BEAKER) (test code = 752) RED CELL DISTRIBUTION WIDTH 20.3 % 11.6-14.4 H (BEAKER) (test code = 412) PLATELET COUNT (BEAKER) (test 273 K/CU MM 150-450 code = 756) MEAN PLATELET VOLUME (BEAKER) 10.1 fL 9.4-12.4 (test code = 754) NEUTROPHILS RELATIVE PERCENT 41 % (BEAKER) (test code = 429) LYMPHOCYTES RELATIVE PERCENT 43 % (BEAKER) (test code = 430) MONOCYTES RELATIVE PERCENT 13 % (BEAKER) (test code = 431) EOSINOPHILS RELATIVE PERCENT 3 % (BEAKER) (test code = 432) BASOPHILS RELATIVE PERCENT 1 % (BEAKER) (test code = 437) NEUTROPHILS ABSOLUTE COUNT 2.65 K/ L 1.78-5.38 (BEAKER) (test code = 670) LYMPHOCYTES ABSOLUTE COUNT 2.80 K/ L 1.32-3.57 (BEAKER) (test code = 414) MONOCYTES ABSOLUTE COUNT (BEAKER) 0.85 K/ L 0.30-0.82 H (test code = 415) EOSINOPHILS ABSOLUTE COUNT 0.17 K/ L 0.04-0.54 (BEAKER) (test code = 416) BASOPHILS ABSOLUTE COUNT (BEAKER) 0.03 K/ L 0.01-0.08 (test code = 417) IMMATURE GRANULOCYTES-RELATIVE 1 % 0-1 PERCENT (BEAKER) (test code = 2801) VALPROIC ACID LEVEL, [id number] 09:06:07 Test Item Value Reference Range Interpretation Comments VALPROIC ACID TOTAL (BEAKER) (test 48 ug/mL 50-100 L code = 924) Therapeutic range for some clinical conditions may be >100 ug/mLOperator ID - JAYLIN OMPREHENSIVE METABOLIC [id number] 06:29:58 Test Item Value Reference Range Interpretation Comments TOTAL PROTEIN 6.7 gm/dL 6.0-8.3 (BEAKER) (test code = 770) ALBUMIN (BEAKER) 4.3 g/dL 3.5-5.0 (test code = 1145) ALKALINE PHOSPHATASE 121 U/L 40-150 (BEAKER) (test code = 346) BILIRUBIN TOTAL 0.2 mg/dL 0.2-1.2 (BEAKER) (test code = 377) SODIUM (BEAKER) (test 138 meq/L 136-145 code = 381) POTASSIUM (BEAKER) 4.0 meq/L 3.5-5.1 (test code = 379) CHLORIDE (BEAKER) 106 meq/L 98-107 (test code = 382) CO2 (BEAKER) (test 27 meq/L 22-29 code = 355) BLOOD UREA NITROGEN 17 mg/dL 7-21 (BEAKER) (test code = 354) CREATININE (BEAKER) 0.83 mg/dL 0.57-1.25 (test code = 358) GLUCOSE RANDOM 86 mg/dL 70-105 (BEAKER) (test code = 652) CALCIUM (BEAKER) 8.7 mg/dL 8.4-10.2 (test code = 697) AST (SGOT) (BEAKER) 29 U/L 5-34 (test code = 353) ALT (SGPT) (BEAKER) 20 U/L 6-55 (test code = 347) EGFR (BEAKER) (test 102 ESTIMATE D GFR IS code = 1092) mL/min/1.73 sq NOT ACCURA TE m CREATININE CLEARANCE IN PREDICTING GLOMERULAR FILTRATION RATE . ESTIMATED GFR I S NOT APPLICABLE FOR DIALYSIS PATIEN TS. CBC W/PLT COUNT & AUTO [id number] 06:03:49 Test Item Value Reference Range Interpretation Comments WHITE BLOOD CELL COUNT (BEAKER) 5.8 K/ L 3.5-10.5 (test code = 775) RED BLOOD CELL COUNT (BEAKER) 4.98 M/ L 4.63-6.08 (test code = 761) HEMOGLOBIN (BEAKER) (test code = 12.5 GM/DL 13.7-17.5 L 410) HEMATOCRIT (BEAKER) (test code = 39.9 % 40.1-51.0 L 411) MEAN CORPUSCULAR VOLUME (BEAKER) 80.1 fL 79.0-92.2 (test code = 753) MEAN CORPUSCULAR HEMOGLOBIN 25.1 pg 25.7-32.2 L (BEAKER) (test code = 751) MEAN CORPUSCULAR HEMOGLOBIN CONC 31.3 GM/DL 32.3-36.5 L (BEAKER) (test code = 752) RED CELL DISTRIBUTION WIDTH 20.7 % 11.6-14.4 H (BEAKER) (test code = 412) PLATELET COUNT (BEAKER) (test 277 K/CU MM 150-450 code = 756) MEAN PLATELET VOLUME (BEAKER) 10.2 fL 9.4-12.4 (test code = 754) NEUTROPHILS RELATIVE PERCENT 27 % (BEAKER) (test code = 429) LYMPHOCYTES RELATIVE PERCENT 55 % (BEAKER) (test code = 430) MONOCYTES RELATIVE PERCENT 14 % (BEAKER) (test code = 431) EOSINOPHILS RELATIVE PERCENT 4 % (BEAKER) (test code = 432) BASOPHILS RELATIVE PERCENT 1 % (BEAKER) (test code = 437) NEUTROPHILS ABSOLUTE COUNT 1.55 K/ L 1.78-5.38 L (BEAKER) (test code = 670) LYMPHOCYTES ABSOLUTE COUNT 3.21 K/ L 1.32-3.57 (BEAKER) (test code = 414) MONOCYTES ABSOLUTE COUNT (BEAKER) 0.79 K/ L 0.30-0.82 (test code = 415) EOSINOPHILS ABSOLUTE COUNT 0.21 K/ L 0.04-0.54 (BEAKER) (test code = 416) BASOPHILS ABSOLUTE COUNT (BEAKER) 0.04 K/ L 0.01-0.08 (test code = 417) IMMATURE GRANULOCYTES-RELATIVE 1 % 0-1 PERCENT (BEAKER) (test code = 2801) BASIC METABOLIC [id number] 05:29:09 Test Item Value Reference Range Interpretation Comments SODIUM (BEAKER) 139 meq/L 136-145 (test code = 381) POTASSIUM (BEAKER) 4.2 meq/L 3.5-5.1 (test code = 379) CHLORIDE (BEAKER) 105 meq/L 98-107 (test code = 382) CO2 (BEAKER) (test 26 meq/L 22-29 code = 355) BLOOD UREA NITROGEN 18 mg/dL 7-21 (BEAKER) (test code = 354) CREATININE (BEAKER) 0.77 mg/dL 0.57-1.25 (test code = 358) GLUCOSE RANDOM 84 mg/dL 70-105 (BEAKER) (test code = 652) CALCIUM (BEAKER) 8.8 mg/dL 8.4-10.2 (test code = 697) EGFR (BEAKER) (test 111 mL/min/1.73 ESTIM ATED GFR IS code = 1092) sq m NOT ACCURATE CREATININE CLEARANCE IN PREDICTING GLOMERULAR FILTRATION RATE . ESTIMATED GFR I S NOT APPLICABLE FOR DIALYSIS PATIEN TS. Bulbs Farmworker ID - ISAURA [id number] 05:29:09 Test Item Value Reference Range Interpretation Comments MAGNESIUM (BEAKER) (test code = 1.8 mg/dL 1.6-2.6 627) Bulbs Farmworker ID - ISAURA [id number] 05:29:09 Test Item Value Reference Range Interpretation Comments PHOSPHORUS (BEAKER) (test code = 3.7 mg/dL 2.3-4.7 604) Bulbs Farmworker ID - PIAYA LCBC W/PLT COUNT & AUTO [id number] 05:02:50 Test Item Value Reference Range Interpretation Comments WHITE BLOOD CELL COUNT (BEAKER) 5.9 K/ L 3.5-10.5 (test code = 775) RED BLOOD CELL COUNT (BEAKER) 4.88 M/ L 4.63-6.08 (test code = 761) HEMOGLOBIN (BEAKER) (test code = 12.1 GM/DL 13.7-17.5 L 410) HEMATOCRIT (BEAKER) (test code = 39.3 % 40.1-51.0 L 411) MEAN CORPUSCULAR VOLUME (BEAKER) 80.5 fL 79.0-92.2 (test code = 753) MEAN CORPUSCULAR HEMOGLOBIN 24.8 pg 25.7-32.2 L (BEAKER) (test code = 751) MEAN CORPUSCULAR HEMOGLOBIN CONC 30.8 GM/DL 32.3-36.5 L (BEAKER) (test code = 752) RED CELL DISTRIBUTION WIDTH 21.4 % 11.6-14.4 H (BEAKER) (test code = 412) PLATELET COUNT (BEAKER) (test 274 K/CU MM 150-450 code = 756) MEAN PLATELET VOLUME (BEAKER) 10.6 fL 9.4-12.4 (test code = 754) NUCLEATED RED BLOOD CELLS 0 /100 WBC 0-0 (BEAKER) (test code = 413) NEUTROPHILS RELATIVE PERCENT 28 % (BEAKER) (test code = 429) LYMPHOCYTES RELATIVE PERCENT 51 % (BEAKER) (test code = 430) MONOCYTES RELATIVE PERCENT 15 % (BEAKER) (test code = 431) EOSINOPHILS RELATIVE PERCENT 5 % (BEAKER) (test code = 432) BASOPHILS RELATIVE PERCENT 1 % (BEAKER) (test code = 437) NEUTROPHILS ABSOLUTE COUNT 1.63 K/ L 1.78-5.38 L (BEAKER) (test code = 670) LYMPHOCYTES ABSOLUTE COUNT 3.00 K/ L 1.32-3.57 (BEAKER) (test code = 414) MONOCYTES ABSOLUTE COUNT (BEAKER) 0.87 K/ L 0.30-0.82 H (test code = 415) EOSINOPHILS ABSOLUTE COUNT 0.30 K/ L 0.04-0.54 (BEAKER) (test code = 416) BASOPHILS ABSOLUTE COUNT (BEAKER) 0.06 K/ L 0.01-0.08 (test code = 417) IMMATURE GRANULOCYTES-RELATIVE 1 % 0-1 PERCENT (BEAKER) (test code = 2801) SARS-CoV2/RT-PCR (Asymptomatic ONLY)2022-01-23 01:04:16 Test Item Value Reference Range Interpretation Comments SARS-COV2/RT-PCR (test Negative Negative code = 71436-6) TUCKER (test code = TUCKER) Negative result for this test determines that [...] occur if a specimen is improperly collected, transported, or handled. A false negative result should be considered if patient's recent exposures or clinical presentation indicate that COVID-19 (SARS-CoV-2) is likely and diagnostic tests for other causes of illness are negative. Re-testing should be considered in cases of suspected false negatives. The limit of detection for this assay is 100 copies/mL. This SARS-CoV-2 test is a real-time RT_PCR test intended for the qualitative detection of [...] revoked under Section 564(g) of the Act. Testing was performed using the Stevie SARS-CoV-2 assay. Fact Sheet for Healthcare Providers:https://www.bri rice/sis/RT SARS-CoV-2 HCP Fact Sheet 51-094305.pdf Fact Sheet for Healthcare Patients:https://www.[employer]/sis/RT SARS-CoV-2 Patient Fact Sheet EN 51-022255F2.pdf Lab Interpretation Normal (test code = 96465-0) [facility]2022-01-23 01:04:16 Test Item Value Reference Range Interpretation Comments SARS-COV2/RT-PCR (test code = Negative Negative 7084069) Negative result for this test determines that [...] occur if a specimen is improperly collected, transported, or handled. A false negative result should be considered if patient's recent exposures or clinical presentation indicate that COVID-19 (SARS-CoV-2) is likely and diagnostic tests for other causes of illness are negative. Re-testing should be considered in cases of suspected false negatives.The limit of detection for this assay is 100 copies/mL.This SARS-CoV-2 test is a real-time RT_PCR test intended for the qualitative detection of nucleic acid from SARS-CoV-2 in a nasopharyngeal swab specimen collected from individuals suspected of COVID-19 by their healthcare provider.This test [...] is revoked under Section 564(g) of the Act.Testing was performed using [employer] SARS-CoV-2 assay.Fact Sheet for Healthcare Providers:https://www.[employer]/sis/RT SARS-CoV-2 HCP Fact Sheet 51- 131727.pdfFact Sheet for Healthcare Patients:https://www.[employer]/sis/RT SARS-CoV-2 Patient Fact Sheet EN 51-323885G3.pdfPOC-Glucose [id number] 12:00:30 Test Item Value Reference Range Interpretation Comments POC-Glucose Meter (test 111 mg/dL 70-110 H : TE STED AT [facility] code = 1538) [address] [place], 770 30: Bulbs Farmworker/Techni melvin ID = [id number] for AKINSONUKAILASHLA Lab Interpretation (test Abnormal code = 88068-8) [facility] [id number] 12:00:30 Test Item Value Reference Range Interpretation Comments POC-GLUCOSE METER 111 mg/dL 70-110 H : TESTED A T [facility] 6720 (BEAKER) (test code = YAYA [place] [facility], 1538) 95262: Bulbs Farmworker/Techni melvin ID = [id number] for AK INSONU, BEATRIZ RAD, HAND, 3 VIEWS, [id number] 11:54:00Reason for exam:->pain after seizure, eval for trauma/fracture [facility] 1980 Sex: MFINAL REPORT EXAMINATION: RAD, HAND, 3 VIEWS, LEFT INDICATION: Pain, seizure COMPARISON: None FINDINGS: Radiographs of the left hand demonstrate no acute fracture or dislocation. Alignment is anatomic. Unremarkable soft tissues. IMPRESSION: No acute osseous injury Signed: Gaye Zurita Verified Date/Time: 01/22/2022 11:54:14 POCT-GLUCOSE [id number] 08:11:07 Test Item Value Reference Range Interpretation Comments POC-GLUCOSE METER 76 mg/dL 70-110 : TESTED A T [facility] 6720 (BEAKER) (test code = YAYA [place], 1538) 14187: Bulbs Farmworker/Techni melvin ID = [id number] for BEATRIZ VILLALTA [id number] 06:46:53 Test Item Value Reference Range Interpretation Comments MAGNESIUM (BEAKER) (test code = 1.9 mg/dL 1.6-2.6 627) Bulbs Farmworker ID - [id number] 06:46:53 Test Item Value Reference Range Interpretation Comments PHOSPHORUS (BEAKER) (test code = 3.6 mg/dL 2.3-4.7 604) Bulbs Farmworker ID - BSBASIC METABOLIC [id number] 06:46:52 Test Item Value Reference Range Interpretation Comments SODIUM (BEAKER) 137 meq/L 136-145 (test code = 381) POTASSIUM (BEAKER) 3.9 meq/L 3.5-5.1 (test code = 379) CHLORIDE (BEAKER) 102 meq/L 98-107 (test code = 382) CO2 (BEAKER) (test 28 meq/L 22-29 code = 355) BLOOD UREA NITROGEN 17 mg/dL 7-21 (BEAKER) (test code = 354) CREATININE (BEAKER) 0.75 mg/dL 0.57-1.25 (test code = 358) GLUCOSE RANDOM 107 mg/dL 70-105 H (BEAKER) (test code = 652) CALCIUM (BEAKER) 8.7 mg/dL 8.4-10.2 (test code = 697) EGFR (BEAKER) (test 114 mL/min/1.73 ESTIM ATED GFR IS code = 1092) sq m NOT ACCURATE CREATININE CLEARANCE IN PREDICTING GLOMERULAR FILTRATION RATE . ESTIMATED GFR I S NOT APPLICABLE FOR DIALYSIS PATIEN TS. Bulbs Farmworker ID - BSCBC W/PLT COUNT & AUTO [id number] 06:45:34 Test Item Value Reference Range Interpretation Comments WHITE BLOOD CELL COUNT (BEAKER) 6.0 K/ L 3.5-10.5 (test code = 775) RED BLOOD CELL COUNT (BEAKER) 4.81 M/ L 4.63-6.08 (test code = 761) HEMOGLOBIN (BEAKER) (test code = 12.0 GM/DL 13.7-17.5 L 410) HEMATOCRIT (BEAKER) (test code = 38.7 % 40.1-51.0 L 411) MEAN CORPUSCULAR VOLUME (BEAKER) 80.5 fL 79.0-92.2 (test code = 753) MEAN CORPUSCULAR HEMOGLOBIN 24.9 pg 25.7-32.2 L (BEAKER) (test code = 751) MEAN CORPUSCULAR HEMOGLOBIN CONC 31.0 GM/DL 32.3-36.5 L (BEAKER) (test code = 752) RED CELL DISTRIBUTION WIDTH 21.6 % 11.6-14.4 H (BEAKER) (test code = 412) PLATELET COUNT (BEAKER) (test 269 K/CU MM 150-450 code = 756) MEAN PLATELET VOLUME (BEAKER) 10.7 fL 9.4-12.4 (test code = 754) NUCLEATED RED BLOOD CELLS 0 /100 WBC 0-0 (BEAKER) (test code = 413) NEUTROPHILS RELATIVE PERCENT 31 % (BEAKER) (test code = 429) LYMPHOCYTES RELATIVE PERCENT 48 % (BEAKER) (test code = 430) MONOCYTES RELATIVE PERCENT 16 % (BEAKER) (test code = 431) EOSINOPHILS RELATIVE PERCENT 4 % (BEAKER) (test code = 432) BASOPHILS RELATIVE PERCENT 1 % (BEAKER) (test code = 437) NEUTROPHILS ABSOLUTE COUNT 1.84 K/ L 1.78-5.38 (BEAKER) (test code = 670) LYMPHOCYTES ABSOLUTE COUNT 2.87 K/ L 1.32-3.57 (BEAKER) (test code = 414) MONOCYTES ABSOLUTE COUNT (BEAKER) 0.97 K/ L 0.30-0.82 H (test code = 415) EOSINOPHILS ABSOLUTE COUNT 0.24 K/ L 0.04-0.54 (BEAKER) (test code = 416) BASOPHILS ABSOLUTE COUNT (BEAKER) 0.04 K/ L 0.01-0.08 (test code = 417) IMMATURE GRANULOCYTES-RELATIVE 1 % 0-1 PERCENT (BEAKER) (test code = 2801) POCT-GLUCOSE [id number] 06:27:54 Test Item Value Reference Range Interpretation Comments POC-GLUCOSE METER 101 mg/dL 70-110 : TESTED A T [facility] 6720 (BEAKER) (test code = [facility], 1538) 06424: Bulbs Farmworker/Techni melvin ID = [id number] for Marlen Daly POCT-GLUCOSE [id number] 23:58:55 Test Item Value Reference Range Interpretation Comments POC-GLUCOSE METER 99 mg/dL 70-110 : TESTED A T [facility] 6720 (BEAKER) (test code = [facility], 1538) 31484: Bulbs Farmworker/Techni melvin ID = [id number] for Marlen Singletary POCT-GLUCOSE [id number] 16:25:08 Test Item Value Reference Range Interpretation Comments POC-GLUCOSE METER 95 mg/dL 70-110 : TESTED A T [facility] 6720 (BEAKER) (test code = [facility], 1538) 13528: Bulbs Farmworker/Techni melvin ID = [id number] for [place], [employer] VALPROIC ACID LEVEL, [id number] 14:53:33 Test Item Value Reference Range Interpretation Comments VALPROIC ACID TOTAL (BEAKER) (test 36 ug/mL 50-100 L code = 924) Therapeutic range for some clinical conditions may be >100 ug/mLOperator ID - ISAURA LPOCT-GLUCOSE [id number] 09:05:57 Test Item Value Reference Range Interpretation Comments POC-GLUCOSE METER 92 mg/dL 70-110 : TESTED A T [facility] 6720 (BEAKER) (test code = [facility], 1538) 50981: Bulbs Farmworker/Techni melvin ID = [id number] for [place], [employer] [id number] 07:25:22 Test Item Value Reference Range Interpretation Comments PHOSPHORUS (BEAKER) (test code = 3.5 mg/dL 2.3-4.7 604) Bulbs Farmworker ID - ISAURA LBASIC METABOLIC [id number] 07:25:21 Test Item Value Reference Range Interpretation Comments SODIUM (BEAKER) 139 meq/L 136-145 (test code = 381) POTASSIUM (BEAKER) 3.5 meq/L 3.5-5.1 (test code = 379) CHLORIDE (BEAKER) 102 meq/L 98-107 (test code = 382) CO2 (BEAKER) (test 27 meq/L 22-29 code = 355) BLOOD UREA NITROGEN 16 mg/dL 7-21 (BEAKER) (test code = 354) CREATININE (BEAKER) 0.77 mg/dL 0.57-1.25 (test code = 358) GLUCOSE RANDOM 121 mg/dL 70-105 H (BEAKER) (test code = 652) CALCIUM (BEAKER) 8.6 mg/dL 8.4-10.2 (test code = 697) EGFR (BEAKER) (test 111 mL/min/1.73 ESTIM ATED GFR IS code = 1092) sq m NOT ACCURATE CREATININE CLEARANCE IN PREDICTING GLOMERULAR FILTRATION RATE . ESTIMATED GFR I S NOT APPLICABLE FOR DIALYSIS PATIEN TS. Bulbs Farmworker ID - ISAURA [id number] 07:25:21 Test Item Value Reference Range Interpretation Comments MAGNESIUM (BEAKER) (test code = 2.0 mg/dL 1.6-2.6 627) Bulbs Farmworker ID - ISAURA LCBC W/PLT COUNT & AUTO [id number] 06:33:11 Test Item Value Reference Range Interpretation Comments WHITE BLOOD CELL COUNT (BEAKER) 5.7 K/ L 3.5-10.5 (test code = 775) RED BLOOD CELL COUNT (BEAKER) 5.01 M/ L 4.63-6.08 (test code = 761) HEMOGLOBIN (BEAKER) (test code = 12.3 GM/DL 13.7-17.5 L 410) HEMATOCRIT (BEAKER) (test code = 40.1 % 40.1-51.0 411) MEAN CORPUSCULAR VOLUME (BEAKER) 80.0 fL 79.0-92.2 (test code = 753) MEAN CORPUSCULAR HEMOGLOBIN 24.6 pg 25.7-32.2 L (BEAKER) (test code = 751) MEAN CORPUSCULAR HEMOGLOBIN CONC 30.7 GM/DL 32.3-36.5 L (BEAKER) (test code = 752) RED CELL DISTRIBUTION WIDTH 21.8 % 11.6-14.4 H (BEAKER) (test code = 412) PLATELET COUNT (BEAKER) (test 258 K/CU MM 150-450 code = 756) MEAN PLATELET VOLUME (BEAKER) 10.4 fL 9.4-12.4 (test code = 754) NUCLEATED RED BLOOD CELLS 0 /100 WBC 0-0 (BEAKER) (test code = 413) NEUTROPHILS RELATIVE PERCENT 40 % (BEAKER) (test code = 429) LYMPHOCYTES RELATIVE PERCENT 40 % (BEAKER) (test code = 430) MONOCYTES RELATIVE PERCENT 15 % (BEAKER) (test code = 431) EOSINOPHILS RELATIVE PERCENT 3 % (BEAKER) (test code = 432) BASOPHILS RELATIVE PERCENT 1 % (BEAKER) (test code = 437) NEUTROPHILS ABSOLUTE COUNT 2.30 K/ L 1.78-5.38 (BEAKER) (test code = 670) LYMPHOCYTES ABSOLUTE COUNT 2.30 K/ L 1.32-3.57 (BEAKER) (test code = 414) MONOCYTES ABSOLUTE COUNT (BEAKER) 0.88 K/ L 0.30-0.82 H (test code = 415) EOSINOPHILS ABSOLUTE COUNT 0.16 K/ L 0.04-0.54 (BEAKER) (test code = 416) BASOPHILS ABSOLUTE COUNT (BEAKER) 0.04 K/ L 0.01-0.08 (test code = 417) IMMATURE GRANULOCYTES-RELATIVE 1 % 0-1 PERCENT (BEAKER) (test code = 2801) POCT-GLUCOSE [id number] 22:07:10 Test Item Value Reference Range Interpretation Comments POC-GLUCOSE METER 81 mg/dL 70-110 : TESTED A T [facility] 6720 (BEAKER) (test code = [facility], 1538) 53749: Bulbs Farmworker/Techni melvin ID = [id number] for Marlen Singletary POCT-GLUCOSE [id number] 16:27:10 Test Item Value Reference Range Interpretation Comments POC-GLUCOSE METER 110 mg/dL 70-110 : TESTED A T [facility] 6720 (BEAKER) (test code = [facility], 1538) 82151: Bulbs Farmworker/Techni melvin ID = [id number] for Genesis Reed [id number] 14:01:40 Test Item Value Reference Range Interpretation Comments POTASSIUM (BEAKER) (test code = 4.3 meq/L 3.5-5.1 379) Bulbs Farmworker ID - ISAURA [id number] 14:01:39 Test Item Value Reference Range Interpretation Comments MAGNESIUM (BEAKER) (test code = 2.4 mg/dL 1.6-2.6 627) Bulbs Farmworker ID - PIAYA LPOCT-GLUCOSE [id number] 11:12:06 Test Item Value Reference Range Interpretation Comments POC-GLUCOSE METER 97 mg/dL 70-110 : TESTED A T [facility] 6720 (BEAKER) (test code = [facility], 1538) 78415: Bulbs Farmworker/Techni melvin ID = [id number] for Genesis Martinez CBC W/PLT COUNT & AUTO [id number] 06:11:05 Test Item Value Reference Range Interpretation Comments WHITE BLOOD CELL COUNT (BEAKER) 9.7 K/ L 3.5-10.5 (test code = 775) RED BLOOD CELL COUNT (BEAKER) 5.02 M/ L 4.63-6.08 (test code = 761) HEMOGLOBIN (BEAKER) (test code = 12.4 GM/DL 13.7-17.5 L 410) HEMATOCRIT (BEAKER) (test code = 39.8 % 40.1-51.0 L 411) MEAN CORPUSCULAR VOLUME (BEAKER) 79.3 fL 79.0-92.2 (test code = 753) MEAN CORPUSCULAR HEMOGLOBIN 24.7 pg 25.7-32.2 L (BEAKER) (test code = 751) MEAN CORPUSCULAR HEMOGLOBIN CONC 31.2 GM/DL 32.3-36.5 L (BEAKER) (test code = 752) RED CELL DISTRIBUTION WIDTH 21.2 % 11.6-14.4 H (BEAKER) (test code = 412) PLATELET COUNT (BEAKER) (test 268 K/CU MM 150-450 code = 756) MEAN PLATELET VOLUME (BEAKER) 10.0 fL 9.4-12.4 (test code = 754) NUCLEATED RED BLOOD CELLS 0 /100 WBC 0-0 (BEAKER) (test code = 413) NEUTROPHILS RELATIVE PERCENT 66 % (BEAKER) (test code = 429) LYMPHOCYTES RELATIVE PERCENT 20 % (BEAKER) (test code = 430) MONOCYTES RELATIVE PERCENT 12 % (BEAKER) (test code = 431) EOSINOPHILS RELATIVE PERCENT 2 % (BEAKER) (test code = 432) BASOPHILS RELATIVE PERCENT 0 % (BEAKER) (test code = 437) NEUTROPHILS ABSOLUTE COUNT 6.35 K/ L 1.78-5.38 H (BEAKER) (test code = 670) LYMPHOCYTES ABSOLUTE COUNT 1.95 K/ L 1.32-3.57 (BEAKER) (test code = 414) MONOCYTES ABSOLUTE COUNT (BEAKER) 1.17 K/ L 0.30-0.82 H (test code = 415) EOSINOPHILS ABSOLUTE COUNT 0.16 K/ L 0.04-0.54 (BEAKER) (test code = 416) BASOPHILS ABSOLUTE COUNT (BEAKER) 0.04 K/ L 0.01-0.08 (test code = 417) IMMATURE GRANULOCYTES-RELATIVE 0 % 0-1 PERCENT (BEAKER) (test code = 2801) VITAMIN B12 AND [id number] 06:06:00 Test Item Value Reference Range Interpretation Comments VITAMIN B12 (BEAKER) 608 pg/mL 213-816 (test code = 774) FOLATE (BEAKER) 7.90 ng/mL See_Comment [Automated message] (test code = 362) The system which generated this result transmitted ref erence range: >=7.00. The reference range was not used to interpr et this result as normal/abnormal . Bulbs Farmworker ID - ISAURA LTSH/FREE T4 IF [id number] 06:05:58 Test Item Value Reference Range Interpretation Comments THYROID STIMULATING HORMONE 1.956 uIU/mL 0.350-4.940 (BEAKER) (test code = 772) Bulbs Farmworker ID - ISAURA [id number] 06:02:15 Test Item Value Reference Range Interpretation Comments PHOSPHORUS (BEAKER) (test code = 3.3 mg/dL 2.3-4.7 604) Bulbs Farmworker ID - [id number] 06:02:14 Test Item Value Reference Range Interpretation Comments MAGNESIUM (BEAKER) (test code = 1.8 mg/dL 1.6-2.6 627) Bulbs Farmworker ID - JEANNECOMPREHENSIVE METABOLIC [id number] 06:02:14 Test Item Value Reference Range Interpretation Comments TOTAL PROTEIN 6.5 gm/dL 6.0-8.3 (BEAKER) (test code = 770) ALBUMIN (BEAKER) 3.8 g/dL 3.5-5.0 (test code = 1145) ALKALINE PHOSPHATASE 132 U/L 40-150 (BEAKER) (test code = 346) BILIRUBIN TOTAL 0.2 mg/dL 0.2-1.2 (BEAKER) (test code = 377) SODIUM (BEAKER) (test 139 meq/L 136-145 code = 381) POTASSIUM (BEAKER) 3.9 meq/L 3.5-5.1 (test code = 379) CHLORIDE (BEAKER) 103 meq/L 98-107 (test code = 382) CO2 (BEAKER) (test 27 meq/L 22-29 code = 355) BLOOD UREA NITROGEN 14 mg/dL 7-21 (BEAKER) (test code = 354) CREATININE (BEAKER) 0.73 mg/dL 0.57-1.25 (test code = 358) GLUCOSE RANDOM 85 mg/dL 70-105 (BEAKER) (test code = 652) CALCIUM (BEAKER) 8.9 mg/dL 8.4-10.2 (test code = 697) AST (SGOT) (BEAKER) 44 U/L 5-34 H (test code = 353) ALT (SGPT) (BEAKER) 25 U/L 6-55 (test code = 347) EGFR (BEAKER) (test 118 ESTIMATE D GFR IS code = 1092) mL/min/1.73 sq NOT ACCURA TE m CREATININE CLEARANCE IN PREDICTING GLOMERULAR FILTRATION RATE . ESTIMATED GFR I S NOT APPLICABLE FOR DIALYSIS PATIEN TS. Bulbs Farmworker ID - DBHIGH SENSITIVITY TROPONIN [id number] 05:37:42 Test Item Value Reference Range Interpretation Comments HIGH SENSITIVITY < pg/ml See_Comment [Automated message] TROPONIN I (test code = The system which [id number]) generated this result transmitted ref erence range: <=35. Th e reference range was not used to interpr et this result as normal/abnormal . Bulbs Farmworker ID - DBThe SANDWICH BOARD CARRIER STAT High Sensitivity Troponin-I results should be used in conjunctionwith other diagnostic information such as ECG, clinical observations and information, and patient symptoms to aid in the diagnosis of NC.PHENYTOIN LEVEL, [id number] 05:37:18 Test Item Value Reference Range Interpretation Comments PHENYTOIN (DILANTIN) (BEAKER) 13.3 ug/mL 10.0-20.0 (test code = 605) Bulbs Farmworker ID - PIAYA LVALPROIC ACID LEVEL, [id number] 05:36:59 Test Item Value Reference Range Interpretation Comments VALPROIC ACID TOTAL (BEAKER) (test 53 ug/mL 50-100 code = 924) Therapeutic range for some clinical conditions may be >100 ug/mLOperator ID - PIAYA LLACTIC ACID, [id number] 05:30:37 Test Item Value Reference Range Interpretation Comments LACTATE BLOOD VENOUS (2) (BEAKER) 0.83 mmol/L 0.50-2.20 (test code = 2872) Bulbs Farmworker ID - DBVALPROIC ACID, [id number] 23:29:56 Test Item Value Reference Range Interpretation Comments VALPROIC A (test code = 54 ug/mL 50-100 3210831911) TUCKER (test code = TUCKER) Toxic Range: ?Greater than 100 ug/mL Lab Interpretation (test Normal code = 14996-8) [facility] WITH [id number] 22:55:09 Test Item Value Reference Range Interpretation Comments WBC (test code = See_Comment [Automated 1815-2) message] The sy stem which generated this result transmitted reference range : 4.20 - 10.70 10*3/?L. The reference range was not used to interpret this result as normal/abnormal . RBC (test code = See_Comment L [Automated 119-8) message] The sy stem which generated this [...] RDW-SD (test code = 45.4 fL 38.5-51.6 23935-7) RDW-CV (test code = 14.1 % 12.1-15.4 788-0) PLT (test code = See_Comment H [Automated 447-3) message] The sy stem which generated this result transmitted reference range : 150 - 328 10*3/ ?L. The reference r gerardo was not used to interpret this result as normal/abnormal . MPV (test code = 9.5 fL 9.8-13.0 L 73332-3) NRBC/100 WBC (test See_Comment [Automat ed code = 7604965912) message] The system which generated this result transmitted reference range : 0.0 - 10.0 /100 WBCs. The refer ence range was not u sed to interpret th is result as normal/abnormal . NRBC x10^3 (test code <0.01 See_Comment [Auto mated = 4823522287) message] The s ystem which generated this result transmitted reference range : 10*3/?L. The reference range was not used to interpret this result as normal/abnormal . GRAN MAT (NEUT) % 39.7 % (test code = 770-8) IMM GRAN % (test code 0.70 % = 8728987471) LYMPH % (test code = 41.5 % 736-9) MONO % (test code = 15.1 % 5905-5) EOS % (test code = 2.5 % 713-8) BASO % (test code = 0.5 % 706-2) GRAN MAT x10^3(ANC) 2.25 10*3/uL 1.99-6.95 (test code = 0651813252) IMM GRAN x10^3 (test 0.04 10*3/uL 0.00-0.06 code = 6124989452) LYMPH x10^3 (test code 2.36 10*3/uL 1.09-3.23 = 731-0) MONO x10^3 (test code 0.86 10*3/uL 0.36-1.02 = 742-7) EOS x10^3 (test code = 0.14 10*3/uL 0.06-0.53 711-2) BASO x10^3 (test code 0.03 10*3/uL 0.01-0.09 = 704-7) Lab Interpretation Abnormal (test code = 24643-3) [facility]. METABOLIC PANEL (32476)2021-09-15 22:28:20 Test Item Value Reference Range Interpretation Comments NA (test code = 136 mmol/L 135-145 6536132110) K (test code = 4.3 mmol/L 3.5-5.0 9930130025) CL (test code = 108 mmol/L 98-108 7443989539) CO2 TOTAL (test code = 26 mmol/L 23-31 9344561648) AGAP (test code = 2-16 5574629398) BUN (test code = 16 mg/dL 7-23 6949816154) GLUCOSE (test code = 86 mg/dL 70-110 3641972524) CREATININE (test code = 0.69 mg/dL 0.60-1.25 3677540817) TOTAL BILI (test code = 0.2 mg/dL 0.1-1.5 1902670955) CALCIUM (test code = 8.4 mg/dL 8.6-10.6 L 1859115132) T PROTEIN (test code = 6.0 g/dL 6.3-8.2 L 5917014670) ALBUMIN (test code = 3.4 g/dL 3.5-5.0 L 6472213095) ALK PHOS (test code = 70 U/L 34-122 5879513484) ALTv (test code = 14 U/L 5-50 1742-6) AST(SGOT) (test code = 23 U/L 13-40 8865137186) eGFR (test code = mL/min/1.73m2 5421703671) TUCKER (test code = TUCKER) Association of [...] tests). Lab Interpretation Abnormal (test code = 10205-9) [facility] [id number] 22:01:16 Test Item Value Reference Range Interpretation Comments LACTIC ACID (test code = 1.74 mmol/L 0.50-2.20 7554308902) Lab Interpretation (test code = Normal 15947-1) [facility] [id number] 14:50:00Surgical Pathology Report Case: [id number] Authorizing Provider: Kimberly Mann Collected: 11/09/2020 08:59 AM MD Светлана Ordering Location: [address] Received: 11/11/2020 08:24 AM Service Pathologist: Anahi León MD Specimen: Gallbladder This amendment is issued to correct a transcriptional error. A. GALLBLADDER, CHOLECYSTECTOMY: - CHRONIC CHOLECYSTITIS. Signing Pathologist Direct Phone Line: [phone] electronically signed by Anahi León MD on 11/13/2020 at 2:50 PM [id number] painGallbladderA. Received fresh, labeled with the patient's name, MRN and "gallbladder" and consists of an intact gallbladder (7.2 x 3 x 2 cm) which has a patent cystic duct. The serosa is laminar, smooth with petechial hemorrhages in the neck and fundus. A cystic duct lymph node is not present. The gallbladder is opened to reveal a small amount of bile. No choleliths are identified in the specimen or specimen container.The mucosa is clay-green and trabeculated. The wall thickness ranges 0.1-0.3 cm. No gross lesions areidentified. Lead Sewage Plant Operator sections are submitted.Section codeA1: Cystic duct margin (blue), en faceA2: Gallbladder wallChelsea CHRISTIAN Buitrago PA ([facility])cmPerformed.[facility], Department of Pathology, [address] [place] [address], [facility]qkc[facility], [facility] of [facility], [address] [place] [address], [facility]hProv[facility], [facility] of [facility], [address] [place] [address], UVEBPS EXAM 2020-11-13 11:14:00Surgical Pathology Report Case: [id number] Authorizing Provider: Eleno Keane MD Collected: 11/07/2020 03:21 PM Ordering Location: [address] Received: 11/08/2020 08:02 AM Service P athologist: Yadira Gardner MD Specimens: A) - Duodenum, duodenum bx B) - Distal Esophagus, distal esophagus bx REASON FOR ADDENDUM: TO REPORT GMS STAIN RESULT:GMS STAIN: NEGATIVE FOR FUNGAL ELEMENTSAddendum electronically signed by Yadira Gardner MD on 11/13/2020 at 11:14 AMA. DUODENUM, BIOPSY: - CHRONIC PEPTIC DUODENITIS - NEGATIVE FOR FEATURES OF CELIAC DISEASE B. 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 GMS stain is pending and will be reported in an addendum.[id number] obstructionA. DuodenumB. Esophagus, distalA. Received in formalin labeled with the patient's name, medical record number and "duodenum" and consists of 4 clay soft tissue fragments ranging 0.2-0.3 cm submitted in toto in A1.B. Received in formalin labeled with the patient's name, medical record number and "distal esophagus" and consists of 4 white soft tissue fragments ranging 0.1-0.2 cm submitted in toto in B1.CHRISTIAN Monroe PA ([facility])cmPerformed.The interpretation of this case included the use of immunohistochemistry or special stains.Control Slides Examined: In-house known positive controls were evaluated along with the test tissue. These control slides run alongside of the patients sample show appropriate staining. Internal positive and negative controls when available are evaluated Immunohistochemistry technical testing was performed at [facility], Pathology Laboratory where it was developed and its performance characteristics were determined. It has not been cleared or approved by the U.S. Foodand Drug Administration. The FDA has determined that such clearance or approval is not necessary. The test is used for clinical purposes. It should not be regarded as investigational or for research. This laboratory is certified under the Clinical Laboratory Improvement Amendments of 1988 (CLIA-88) asqualified to perform high complexity clinical laboratory testing.BASIC METABOLIC [id number] 04:30:00 Test Item Value Reference Range Interpretation [...] S NOT APPLICABLE FOR DIALYSIS PATIEN TS. Bulbs Farmworker ID - [id number] 04:30:00 Test Item Value Reference Range Interpretation Comments MAGNESIUM (BEAKER) (test code = 1.8 mg/dL 1.6-2.6 627) Bulbs Farmworker ID - EDASIHEPATIC FUNCTION [id number] 04:30:00 Test Item Value Reference Range Interpretation [...] (test code = 26 U/L 6-55 347) Bulbs Farmworker ID - EDASICBC W/PLT COUNT & AUTO [id number] 03:48:00 Test Item Value Reference Range Interpretation [...] 0-1 PERCENT (BEAKER) (test code = 2801) [id number] 05:11:00 Test Item Value Reference Range Interpretation Comments MAGNESIUM (BEAKER) (test code = 1.8 mg/dL 1.6-2.6 627) Bulbs Farmworker ID - ADMINHEPATIC FUNCTION [id number] 05:11:00 Test Item Value Reference Range Interpretation [...] (test code = 29 U/L 6-55 347) Bulbs Farmworker ID - ADMINBASIC METABOLIC [id number] 05:11:00 Test Item Value Reference Range Interpretation [...] S NOT APPLICABLE FOR DIALYSIS PATIEN TS. Bulbs Farmworker ID - ADMINCBC W/PLT COUNT & AUTO [id number] 04:33:00 Test Item Value Reference Range Interpretation [...] PERCENT (BEAKER) (test code = 2801) SARS-COV2/RT-PCR ([facility])2020-11-08 09:38:00 Test Item Value Reference Range Interpretation Comments SARS-COV2/RT-PCR (test Negative Not Detected, Negative, code = 4606647) See external report for linked test SARS-COV-2 PERFORMING LAB [facility] (test code = 2519043) Negative result for this test determines that [...] individuals suspected of COVID-19 by their healthcare provider.This test [...] justifying the authorization of the emergency use ofin vitro diagnostic tests for detection and/or diagnosis of COVID-19 is terminated under Section 564(b)(2) of the Act or the EUA is revoked under Section 564(g) of the Act.Fact Sheet for Healthcare Prov iders:https://www.[employer]/sites/default/files/product/documents/Fact_Sheet_HC _Oqpreybgs_Qhuz_WGYM-GpH-6.pdfFact Sheet for Healthcare Patients:https://www.[employer]/sites/default/files/product/docume nts/Hosz_Cbhwq_Hmdknsoj_Agaw_PHOG-VbP-6.pdfPerforming Laboratory:[facility].[place], [place] [address]OQWQZ METABOLIC PANEL 2020-11-08 04:42:00 Test Item Value [...] S NOT APPLICABLE FOR DIALYSIS PATIEN TS. Bulbs Farmworker ID Ramsey CORTEZ [id number] 04:42:00 Test Item Value Reference Range Interpretation Comments MAGNESIUM (BEAKER) (test code = 1.8 mg/dL 1.6-2.6 627) Bulbs Farmworker ID Ramsey CORTEZ WHEPATIC FUNCTION [id number] 04:42:00 Test Item Value Reference Range Interpretation [...] (test code = 38 U/L 6-55 347) Bulbs Farmworker JARET CORTEZ [id number] 04:42:00 Test Item Value Reference Range Interpretation Comments LIPASE (BEAKER) (test code = 749) 12 U/L 8-78 Bulbs Farmworker ID Ramsey CORTEZ WPROTHROMBIN TIME/[id number] 04:35:00 Test Item Value Reference Range Interpretation [...] is 2.5-3.5 for patients wiht mechanical heart valves.[id number] 04:35:00 Test Item Value Reference Range Interpretation Comments PARTIAL THROMBOPLASTIN TIME 28.4 seconds 22.5-36.0 (BEAKER) (test code = 760) CBC W/PLT COUNT & AUTO [id number] 03:57:00 Test Item Value Reference Range Interpretation [...] PERCENT (BEAKER) (test code = 2801) [place], [id number] 16:06:13Reason for exam:->ERCP [facility] CENTERName: BRANDON STEIN : 1980 Sex: MFluoroscopic unit utilized for a procedure performed in the OR. No interpretation was requested. Refer to the operative report for findings. Refer to PACS for patient radiation dose information.MR, BRAIN, WITHOUT [id number] 19:26:00Unlisted Reason for Exam - Click Yes and Enter Reason Below->YesUnlisted Reason for Exam->tingling/numbnessFINAL REPORT MR, BRAIN, WITHOUT CONTRAST, MR, MRA, BRAIN, WITHOUT CONTRAST, MR,MRA, NECK, WITHOUT IV CONTRAST INDICATION: Unlisted Reason for Examtingling/numbness TECHNIQUE: Multiplanar, multisequence MR imaging of the brain without intravenous contrast.MRA of the head utilizing3-D qymf-yn-vvkonm technique, with 3-D reconstructions.MRA of the neck utilizing 2-D and 3-D ewft-an-tehwed technique, with 3-D reconstructions. COMPARISON: None FINDINGS: MRI Brain:Intracranial: No intracranial hemorrhage. No restricted diffusion to suggest acute infarct. No mass effect. No hydrocepha larissa. Sinuses: No evidence of sinusitis. Mastoids are clear. Orbits: Globes are intact. Calvarium \\T\\scalp: Unremarkable. MRA Head:There is no evidence of intracranial aneurysm, focal stenosis, or major branch vessel occlusion. Diminutive left vertebral artery terminates in PICA. MRA Neck:The carotid a rteries in the neck are patent including their bifurcations. There is antegrade flow in the vertebral arteries in the neck. Left vertebral artery is diminutive along the entirety of its course. IMPRESSION:1.No acute intracranial abnormality.2.No proximal branch arterial occlusion or high-grade focal stenosis within the head and neck. Signed: Talya Mcelroy MDReport Verified Date/Time: 07/08/2020 19:26:58 MR, MRA, BRAIN, WITHOUT [id number] 19:26:00Unlisted Reason for Exam - Click Yes and Enter Reason Below->YesUnlisted Reason for Exam->tingling, numbnessFINAL REPORT MR, BRAIN, WITHOUT CONTRAST, MR, MRA, BRAIN, WITHOUT CONTRAST, MR,MRA, NECK, WITHOUT IV CONTRAST INDICATION: Unlisted Reason for Examtingling/numbness TECHNIQUE: Multiplanar, multisequence MR imaging of the brain without intravenous contrast.MRA of the head utilizing3-D edds-jj-vstsbv technique, with 3-D reconstructions.MRA of the neck utilizing 2-D and 3-D tyol-gn-ngkerw technique, with 3-D reconstructions. COMPARISON: None FINDINGS: MRI Brain:Intracranial: No intracranial hemorrhage. No restricted diffusion to suggest acute infarct. No mass effect. No hydrocepha larissa. Sinuses: No evidence of sinusitis. Mastoids are clear. Orbits: Globes are intact. Calvarium \\T\\scalp: Unremarkable. MRA Head:There is no evidence of intracranial aneurysm, focal stenosis, or major branch vessel occlusion. Diminutive left vertebral artery terminates in PICA. MRA Neck:The carotid a rteries in the neck are patent including their bifurcations. There is antegrade flow in the vertebral arteries in the neck. Left vertebral artery is diminutive along the entirety of its course. IMPRESSION:1.No acute intracranial abnormality.2.No proximal branch arterial occlusion or high-grade focal stenosis within the head and neck. Signed: Talya Mcelroyort Verified Date/Time: 07/08/2020 19:26:58 MR, MRA, NECK, WITHOUT IV [id number] 19:26:00Unlisted Reason for Exam - Click Yes and Enter Reason Below->YesUnlisted Reason for Exam->tingling, numbnessFINAL REPORT MR, BRAIN, WITHOUT CONTRAST, MR, MRA, BRAIN, WITHOUT CONTRAST, MR,MRA, NECK, WITHOUT IV CONTRAST INDICATION: Unlisted Reason for Examtingling/numbness TECHNIQUE: Multiplanar, multisequence MR imaging of the brain without intravenous contrast.MRA of the head utilizing3-D aztn-bv-sauzxm technique, with 3-D reconstructions.MRA of the neck utilizing 2-D and 3-D aver-xn-hycpgu technique, with 3-D reconstructions. COMPARISON: None FINDINGS: MRI Brain:Intracranial: No intracranial hemorrhage. No restricted diffusion to suggest acute infarct. No mass effect. No hydrocepha larissa. Sinuses: No evidence of sinusitis. Mastoids are clear. Orbits: Globes are intact. Calvarium \\T\\scalp: Unremarkable. MRA Head:There is no evidence of intracranial aneurysm, focal stenosis, or major branch vessel occlusion. Diminutive left vertebral artery terminates in PICA. MRA Neck:The carotid a rteries in the neck are patent including their bifurcations. There is antegrade flow in the vertebral arteries in the neck. Left vertebral artery is diminutive along the entirety of its course.
[2022-08-23] MEDS ORDERED: NA CHLORIDE 0.9% 100 ML IV ONE (14:33)
[2022-08-23] MEDS ORDERED: LEVETIRACETAM 500 MG/5 ML VIAL IV ONE (14:33)
[2022-08-23 14:45] LABS: Absolute Lymphocytes (CBC) 1.8 K/uL (0.7-4.9); Lymphocytes % 20.8 % (15.3-44.8); MCV 82.8 fL (80-100); MPV 8.2 fL (7.6-11.3); RBC Red Blood Cell Count 4.47 M/uL (4.33-5.43)
[2022-08-23 15:00] LABS: Albumin 2.8 g/dL (3.4-5.0); Bilirubin Total 0.3 mg/dL (0.2-1.0); Potassium 3.6 mmol/L (3.5-5.1); Valproic Acid (Depakene) Level 116.1 ug/mL (50-100)
--- NOTE | 2022-08-23 17:45 | EDPHYS ---
Physician Documentation [facility] Name: Ta Quezada Age: 42 yrs Sex: Male : 1980 Arrival Date: 08/23/2022 Time: 14:01 Bed 3 Private MD: ED Physician Eric Palafox HPI: 08/23 14:31 This 42 yrs old Male presents to ER via EMS with complaints of Seizure. ms3 14:31 The patient presents with a history of multiple seizures, a total of 2, the episode(s) ms3 was witnessed, by EMS personnel. Character of seizure(s): Loss of consciousness: the patient experienced loss of consciousness, Motor activity: generalized. Seizure onset: just prior to arrival. Context: the seizure(s) was witnessed, by EMS personnel. Seizure Hx: Seizure medications: Keppra. Associated injury: The patient did not suffer any apparent associated injury. EMS care: versed, intranasal 5 mg. Current symptoms: decreased level of consciousness, is sleeping but easy to arouse. Historical: - Allergies: 14:03 Unable to obtain; mb8 - PMHx: 14:03 Depression; GERD; Hypertension; Kidney stones; Seizure; TIA; mb8 - Social history:: Smoking status: unknown. ROS: 14:31 Neuro: Positive for seizure activity. ms3 14:31 Unable to obtain ROS due to altered mental status. Exam: 14:31 Constitutional: This is a well developed, well nourished patient who is awake, alert, ms3 and in no acute distress. Head/Face: Normocephalic, atraumatic. Eyes: Pupils equal round and reactive to light, extra-ocular motions intact. Lids and lashes normal. Conjunctiva and sclera are non-icteric and not injected. Periorbital areas with no swelling, redness, or edema. Neck: Trachea midline, no cervical lymphadenopathy. Supple, full range of motion without nuchal rigidity, or vertebral point tenderness. No Meningismus. Chest/axilla: Normal chest wall appearance and motion. Nontender with no deformity. Cardiovascular: Regular rate and rhythm with a normal S1 and S2. No gallops, murmurs, or rubs. Normal PMI, no JVD. No pulse deficits. Respiratory: Lungs have equal breath sounds bilaterally, clear to auscultation and percussion. No rales, rhonchi or wheezes noted. No increased work of breathing, no retractions or nasal flaring. Abdomen/GI: Soft, non-tender, with normal bowel sounds. No distension or tympany. No guarding or rebound. No evidence of tenderness throughout. Back: No spinal tenderness. No costovertebral tenderness. Full range of motion. Skin: Warm, dry with normal turgor. Normal color with no rashes, no lesions, and no evidence of cellulitis. MS/ Extremity: Pulses equal, no cyanosis. Neurovascular intact. Full, normal range of motion. 14:31 Neuro: Mentation: responsive to voice slow to respond, confused, sleepy, Motor: moves all fours, Sensation: is normal, Gait: not tested. Vital Signs: 14:01 BP 129 / 83; Pulse 60; Resp 14; Temp 97.6; Pulse Ox 98% on R/A; Pain 0/10; mb8 14:23 BP 113 / 74; Pulse 61; Resp 19; Pulse Ox 100% on 2 lpm NC; ph 14:30 BP 120 / 72; Pulse 55; Resp 18; Pulse Ox 100% on 2 lpm NC; mb8 14:45 BP 119 / 70; Pulse 56; Resp 18; Pulse Ox 100% on 2 lpm NC; mb8 16:33 BP 103 / 54; Pulse 47; Resp 16; Pulse Ox 100% on 2 lpm NC; mb8 Karie Coma Score: 14:03 Eye Response: to voice(3). Verbal Response: incomprehensible(2). Motor Response: mb8 localizes pain(5). Total: 10. 14:23 Eye Response: to voice(3). Verbal Response: inappropriate words(3). Motor Response: ph obeys commands(6). Total: 12. MDM: 14:16 Patient medically screened. ms3 14:31 Differential diagnosis: seizure, Medication non-compliance . ms3 17:45 Data reviewed: vital signs, nurses notes, lab test result(s), radiologic studies. Data ms3 interpreted: manager monitoring: rate is 52 beats/min, rhythm is sinus bradycardia, with no ectopy, Interpretation: bradycardia. Counseling: I had a detailed discussion with the patient and/or guardian regarding: the historical points, exam findings, and any diagnostic results supporting the discharge/admit diagnosis, lab results, the need for outpatient follow up, to return to the emergency department if symptoms worsen or persist or if there are any questions or concerns that arise at home. ED course: Patient symptoms improved, patient is alert and orient x4, in no apparent distress, nontoxic-appearing. Patient agrees with discharge at this time. Patient to follow-up with Dr. Earl in 1 to 2 days. Patient and his understand and agree with plan. All questions were answered. Return precautions discussed include worsening symptoms, seizures, pain, or any other concerns.. 08/23 14:29 Order name: CBC with Diff; Complete Time: 15:44 ms3 08/23 14:29 Order name: CMP; Complete Time: 15:44 ms3 08/23 14:29 Order name: Seizure Precautions; Complete Time: 14:30 ms3 08/23 14:30 Order name: Depakote; Complete Time: 15:44 ms3 Administered Medications: 14:38 Drug: Keppra (levETIRAcetam) 1000 mg Route: IV; Rate: calculated rate; Site: left mb8 antecubital; 15:01 Follow up: Response: No adverse reaction; IV Status: Completed infusion mb8 Disposition: 17:46 Chart complete. ms3 Disposition Summary: 08/23/22 17:44 Discharge Ordered Location: Home ms3 Condition: Stable ms3 Diagnosis - Other seizures ms3 Followup: ms3 - With: Pito Earl MD - When: 1 - 2 days - Reason: Recheck today's complaints Discharge Instructions: - Discharge Summary Sheet ms3 - Seizure, Adult ms3 Forms: - Medication Reconciliation Form ms3 - Thank You Letter ms3 - Antibiotic Education ms3 - Prescription Opioid Use ms3 Signatures: Dispatcher [employer] EDMS Eric Palafox DO DO ms3 Gumaro Hernandez RN RN mb8 Corrections: (The following items were deleted from the chart) 14:03 14:03 PSHx: Cholecystectomy; mb8 mb8
--- NOTE | 2022-08-23 17:45 | ER ---
Nurse's Notes [facility] Name: Ta Quezada Age: 42 yrs Sex: Male : 1980 Arrival Date: 08/23/2022 Time: 14:01 Bed 3 Private MD: Diagnosis: Other seizures Presentation: 08/23 14:01 Chief complaint: EMS states: they were called for a possible seizure. In their care, mb8 patient had a seizure lasting about 1.5 minutes. EMS gave 5mg of IN Versed. Patient postictal and not answering questions. Coronavirus screen: Vaccine status: unable to assess. Ebola Screen: Unable to complete the Ebola screening because:. Initial Sepsis Screen: Does the patient meet any 2 criteria? No. Patient's initial sepsis screen is negative. Does the patient have a suspected source of infection? No. Patient's initial sepsis screen is negative. Risk Assessment: Do you want to hurt yourself or someone else? Unable to obtain. Onset of symptoms was August 23, 2022. 14:01 Method Of Arrival: EMS [facility] 14:01 Acuity: RENE 2 [facility] 14:06 Care prior to arrival: Medication(s) given: IV initiated. 20 GA, in the left 8 antecubital area. Triage Assessment: 14:03 General: Appears uncomfortable, ill, Behavior is cooperative. Pain: Denies pain. Neuro: mb8 Level of Consciousness is post ictal, Oriented to none Lobster Man are weak bilaterally Weakness Speech is slurred. Historical: - Allergies: 14:03 Unable to obtain; mb8 - PMHx: 14:03 Depression; GERD; Hypertension; Kidney stones; Seizure; TIA; mb8 - Social history:: Smoking status: unknown. Screenin:05 Nutritional screening:. Fall Risk. mb8 14:05 Fall Risk IV access (20 points). Gait- Impaired (20 pts.). Mental Status- mb8 Overestimates/Forgets Limitations (15 pts.). Total [place] Fall Scale indicates High Risk Score (45 or more points). Fall prevention measures have been instituted. Side Rails Up X 2 Placed Close to Nursing Station Frequent Obs/Assessments Occuring As available patient and family educated on Fall Prevention Program and Strategies. Assessment: 14:04 General: see triage assess. 8 15:02 Reassessment: Patient and/or family updated on plan of care and expected duration. Pain mb8 level reassessed. Patient is alert, oriented x 3, equal unlabored respirations, skin warm/dry/pink. Patient waking up to answer some questions. Patient is still having slurred speech and is hard to understand. Patient reports being compliant "for the most part" on keppra and depakote. Is able to tell me his birthday but not where we are. 16:34 Reassessment: Patient and/or family updated on plan of care and expected duration. Pain mb8 level reassessed. Patient is alert, oriented x 3, equal unlabored respirations, skin warm/dry/pink. Vital Signs: 14:01 BP 129 / 83; Pulse 60; Resp 14; Temp 97.6; Pulse Ox 98% on R/A; Pain 0/10; mb8 14:23 BP 113 / 74; Pulse 61; Resp 19; Pulse Ox 100% on 2 lpm NC; ph 14:30 BP 120 / 72; Pulse 55; Resp 18; Pulse Ox 100% on 2 lpm NC; mb8 14:45 BP 119 / 70; Pulse 56; Resp 18; Pulse Ox 100% on 2 lpm NC; mb8 16:33 BP 103 / 54; Pulse 47; Resp 16; Pulse Ox 100% on 2 lpm NC; mb8 Vitals: 14:45 Cardiac Rhythm Assessment Sinus cami. mb8 16:33 Cardiac Rhythm Assessment Sinus cami. mb8 Karie Coma Score: 14:03 Eye Response: to voice(3). Verbal Response: incomprehensible(2). Motor Response: mb8 localizes pain(5). Total: 10. 14:23 Eye Response: to voice(3). Verbal Response: inappropriate words(3). Motor Response: ph obeys commands(6). Total: 12. ED Course: 14:01 Patient arrived in ED. mb8 14:03 Triage completed. mb8 14:04 Arm band placed on. mb8 14:05 Patient has correct armband on for positive identification. Placed in gown. Bed in low mb8 position. Call light in reach. Side rails up X2. Seizure precautions initiated. Client placed on continuous cardiac and pulse oximetry monitoring. NIBP monitoring applied. residential support worker on. 14:05 No provider procedures requiring assistance completed. Inserted saline lock: 20 gauge mb8 in left antecubital area, using aseptic technique. ,using aseptic technique. EMS. 14:10 Eric Palafox DO is Attending Physician. ms3 14:11 Paige Thomas, RN is Primary Nurse. ph 17:44 Pito Earl MD is Referral Physician. ms3 18:15 IV discontinued, intact, bleeding controlled, No redness/swelling at site. Pressure mb8 dressing applied. Administered Medications: 14:38 Drug: Keppra (levETIRAcetam) 1000 mg Route: IV; Rate: calculated rate; Site: left mb8 antecubital; 15:01 Follow up: Response: No adverse reaction; IV Status: Completed infusion mb8 Medication: 14:05 VIS not applicable for this client. mb8 Outcome: 17:44 Discharge ordered by . ms3 18:16 Discharged to home via wheelchair, with family. mb8 18:16 Condition: stable 18:16 Discharge instructions given to patient, family, Instructed on discharge instructions, follow up and referral plans. Demonstrated understanding of instructions, follow-up care. 18:32 Patient left the ED. mb8 Signatures: Paige Thomas, RN RN Eric Palafox DO DO ms3 Gumaro Hernandez RN RN mb8 Corrections: (The following items were deleted from the chart) 14:03 14:03 PSHx: Cholecystectomy; mb8 mb8
[2022-08-23 18:42] VITALS: TEMP 97.6
[2022-08-23 18:47] VITALS: O2SAT 100
[2022-08-23 19:01] VITALS: BP 103/54
== END 2022-08-23 18:32 | disposition home or self-care (01) ==
LOC: ER 14:00
DX: G40.89 Other seizures (principal)
CPT/HCPCS: 96365; 85025; 36415; 80164; 80053; 99284; J1953

== ENCOUNTER 2022-09-03 13:05 | Emergency (ER) | payer OTHER ==
--- OUTSIDE RECORDS SUMMARY | 2022-09-03 13:11 | XMS REPORT | Continuity of Care Document ---
:1980 Author Organization [facility] t Address [address] [place] [address] [address]. [address] [place] [address] Care Team Providers Name Role Phone DEISY AGEE Primary Care Physician Unavailable VIRGINIA LEWIS Attending Clinician Unavailable JUAQUIN CLARKE Attending Clinician Unavailable CANDICE JUSTIN Attending Clinician Unavailable Candice Justin MD Attending Clinician SIMBA DUBOIS Attending Clinician Unavailable Fortino GUAMAN, Hayes Hoover Attending Clinician [phone] Hanane Baker MD Attending Clinician Simba Dubois MD Attending Clinician Fausto Acharya MD, I. Attending Clinician [phone] SUSANNE ROLDAN Attending Clinician Unavailable Susanne Roldan DO Attending Clinician Doctor Unassigned, [place] Attending Clinician Unavailable Barbara Jalloh RN Attending Clinician GAVIOTA VALENTINE Attending Clinician Unavailable Jose Day MD Attending Clinician Abdiaziz Jaimes MD Attending Clinician Gaviota Valentine MD Attending Clinician Kirill Munguia MD Attending Clinician Saloni CANALES, Dee Suarez Attending Clinician Boo Cisneros MD Attending Clinician BOO CISNEROS Attending Clinician Unavailable BOO CISNEROS Attending Clinician Unavailable VIRGINIA LEWIS Admitting Clinician Unavailable JUAQUIN CLARKE Admitting Clinician Unavailable CANDICE JUSTIN Admitting Clinician Unavailable HAYES FREITAS Admitting Clinician Unavailable GAVIOTA VALENTINE Admitting Clinician Unavailable Gaviota Valentine MD Admitting Clinician SCOTT JIM Admitting Clinician Unavailable Payers Payer Name Policy Type Policy Number Effective Date Expiration Date Digna CHOMERARYMainor [place] [id number] 2021 00:00:[address] [facility] [id number] 2021 [facility] 00:00:00 Problems Condition Condition Condition Status Onset Resolution Last Treating Co mments Source Name Details Category Date Date Treatment Clinician Date Impaired Impaired Disease [facility] and ADLs and ADLs 00:00: Medica l 00 Center TIA TIA Disease Active [facility] (transient (transient 4-05 [facility] ischemic ischemic 00:00: Medica l attack) attack) 00 [place] HTN HTN Disease Active [facility] (hypertens (hypertens 4-05 [facility] ion) ion) 00:00: Medical 00 [place] Substance Substance Disease Active [facility] abuse abuse 4-05 [facility] 00:00: Medical 00 Center Status Status Disease Active [facility] epilepticu epilepticu 4-05 [facility] s s 00:00: Medical 00 [place] Depression Depression Disease Active [facility] 00:00: Medical 00 [place] GERD GERD Disease Active [facility] (gastroeso (gastroeso 4-05 [facility] phageal phageal 00:00: Medical reflux reflux 00 Center disease) disease) Seizure Seizure Disease Active [facility] 00:00: Medical 00 [place] AMS AMS Disease Active 2020-10 Univers (altered (altered 1-05 ity of mental mental 00:00: [place] status) status) 00 Medical Branch Obesity Obesity Disease Active 2020-10 Univers (BMI (BMI 1-05 ity of 30-39.9) 30-39.9) 00:00: [place] 00 Medical Branch Acute Acute Disease Active 2020-10 Overview: Univer s blood loss blood loss 10-22 Formatt[place] ity of anemia anemia 00:00: g of this [place] note Medical might be Branch different from the original. Added automatic ally from request for surgery [id number] [place] Disease Active [facility] [...] Active Univers ALLERGIE Class ity of S [facility] NO KNOWN Allergy Active [facility] ALLERGIE S Social History Social Habit Start Date Stop Date Quantity Comments Source Exposure to Not sure [facility] SARS-CoV-2 (event) [facility] History of tobacco Cigarette Smoker [facility] History SDOH [facility] Alcohol Std [...] Univ ersity of 00:00:00 00:00:00 last week [facility] Alcohol intake 2020-11-11 2020-11-11 Ex-drinker [facility] 00:[facility]00 00:00:00 (finding) Medical Center History SDOH 2020-11-07 2020-11-[address] [facility] Alcohol Frequency 00:00:00 00:00:00 [facility] Cigarettes smoked 2020-08-06 2020-08-06 Univers ity of current (pack per 00:00:00 00:00:00 ) - Reported Branch Tobacco use and 2020-07-08 2020-07-[address] [facility] [address] [facility] exposure 00:00:00 00:00:00 [facility] Sex Assigned At [address] 00:00:00 00:00:00 [facility] Smoking Status Start Date Stop Date Source Current every day smoker 2020-08-06 00:00:00 Uni versity of [facility] Medications Ordered Filled Start Stop Current Ordering [...] by Center mouth daily for 30 days. nicotine No 1{patch QD Place 1 CH I [...] tablet hours as needed for Nausea. thiamine 2021-2021- No 100mg QD Take [address] 100 MG 4-11 04-11 mg by [facility] tablet 14:42: 00:00 mouth Medical 18 :00 daily. Center levETIRAcet 2021- No 1000mg Q.5D Take 1,[address] am (KEPPRA) 4-11 04-11 mg by [facility] 1000 MG 14:42: 00:00 mouth 2 Medica l tablet 18 :00 (two) Center times daily. divalproex 2021- No 750mg Q.5D Take [address] (DEPAKOTE) 4-11 04-11 mg by [facility] 500 MG EC 14:42: 00:00 mouth 2 Medi tapan tablet 18 :00 (two) Center times daily. baclofen 2021- No 10mg Q.5D Take [address] (LIORESAL) 4-11 04-11 by mouth 2 [facility] 10 MG 14:42: 00:00 (two) Medical tablet 18 :00 times Center daily. sucralfate 2021- No 1g Q.5D Take [address] (CARAFATE) 4-11 04-11 by mouth 2 [facility] 1 gram 14:42: 00:00 (two) Medical tablet 18 :00 times Center daily. gabapentin 2021-2021- No 600mg Q.5D Take [address] (NEURONTIN) 4-11 04-11 mg by [facility] 600 MG 14:42: 00:00 mouth 2 Medical tablet 18 :00 (two) Center times daily. pantoprazol 2021-2021- No 40mg Q.5D Take [address] e 4-11 04-11 by mouth 2 [facility] (PROTONIX) 14:42: 00:00 (two) Medic al 40 MG 18 :00 times Center tablet daily. fluoxetine [id number]- [id number] 10mg QD Take [address] HCl 4-11 04-11 by mouth [facility] (FLUOXETINE 14:42: 00:00 daily . Me dical ORAL) 18 :00 Center promethazin 2021- No 25mg Take [address] [facility] e 4-11 04-11 by mouth [facility] (PHENERGAN) 14:42: 00:00 every 12 M edical 25 MG 18 :00 (twelve) Center tablet hours as needed for Nausea. thiamine 2021-2021- No 100mg QD Take [address] 100 MG 4-11 04-11 mg by [facility] tablet 14:42: 00:00 mouth Medical 18 :00 daily. Center levETIRAcet 2021-2021- No 1000mg Q.5D Take 1,[address] am (KEPPRA) 4-11 04-11 mg by [facility] 1000 MG 14:42: 00:00 mouth 2 Medica l tablet 18 :00 (two) Center times daily. divalproex 2021-2021- No 750mg Q.5D Take [address] (DEPAKOTE) 4-11 04-11 mg by [facility] 500 MG EC 14:42: 00:00 mouth 2 Medi tapan tablet 18 :00 (two) Center times daily. baclofen 2021- No 10mg Q.5D Take [address] (LIORESAL) 4-11 04-11 by mouth 2 [facility] 10 MG 14:42: 00:00 (two) Medical tablet 18 :00 times Center daily. sucralfate 2021- No 1g Q.5D Take [address] (CARAFATE) 4-11 04-11 by mouth 2 [facility] 1 gram 14:42: 00:00 (two) Medical tablet 18 :00 times Center daily. gabapentin 2021-0 2021- No 600mg Q.5D Take [address] (NEURONTIN) 4-11 04-11 mg by [facility] 600 MG 14:42: 00:00 mouth 2 Medical tablet 18 :00 (two) Center times daily. pantoprazol 0 2021- No 40mg Q.5D Take [address] e 4-11 04-11 by mouth 2 [facility] (PROTONIX) 14:42: 00:00 (two) Medic al 40 MG 18 :00 times Center tablet daily. levETIRAcet 2021- No 1000mg Take [address] am (KEPPRA) 01-26 tablet [facility] 1000 MG 00:00: 23:59 (1,000 mg Medi tapan tablet 00 :00 total) by Center mouth every 12 (twelve) hours for 30 days. gabapentin 2021- No 300mg Q.[id number] Take [address] (NEURONTIN) 01-26 [id number] capsule [facility] 300 MG 00:00: 23:59 3D (300 mg Medical capsule 00 :00 total) by Center mouth 3 (three) times daily for 30 days. sucralfate 2021-2021- No 1g Take [address] (CARAFATE) 01-26 tablet (1 Luis es 1 gram 00:00: 23:59 g total) Medica l tablet 00 :00 by mouth 2 Center (two) times daily before meals for 30 days. divalproex 2021- No 750mg Q.[id number] Take [address] (DEPAKOTE) 01-26 [id number] tablets [facility] 250 MG EC 00:00: 23:59 3D (750 mg Medi tapan tablet 00 :00 total) by Center mouth 3 (three) times daily for 30 days. pantoprazol 2021- No 40mg Q.5D Take [address] e 01-26 tablet (40 [facility] (PROTONIX) 00:00: 23:59 mg total) M edical 40 MG 00 :00 by mouth 2 Center tablet (two) times daily for 30 days. thiamine 2021- No 100mg QD Take 1 [facility] t 100 MG 01-26 tablet [facility] tablet 00:00: 23:59 (100 mg Medical 00 :00 total) by Center mouth daily for 30 days. senna-docus 2021- No 1{tbl} QD Take [address] ate 01-26 tablet by [facility]ukes (SENOKOT S) 00:00: 23:59 mouth Medi tapan 8.6-50 mg 00 :00 nightly Center per tablet for 30 days. levETIRAcet 2021- No 1000mg Take [address] am (KEPPRA) 01-26 tablet [facility] 1000 MG 00:00: 23:59 (1,000 mg Medi tapan tablet 00 :00 total) by Center mouth every 12 (twelve) hours for 30 days. gabapentin 2021- No 300mg Q.[id number] Take [address] (NEURONTIN) 01-26 [id number] capsule [facility] 300 MG 00:00: 23:59 3D [...] for 30 days. divalproex 2021- No 750mg Q.[id number] Take [address] (DEPAKOTE) 01-26 [id number] tablets [facility] 250 MG EC 00:00: 23:59 3D (750 mg Medi tapan tablet 00 :00 total) by Center mouth 3 (three) times daily for 30 days. pantoprazol 2021- No 40mg Q.5D Take [address] e 01-26 tablet (40 [facility] (PROTONIX) 00:00: 23:59 mg total) M edical 40 MG 00 :00 by mouth 2 Center tablet (two) times daily for 30 days. thiamine 2021- No 100mg QD Take 1 [facility] t 100 MG 01-26 tablet [facility] tablet 00:00: 23:59 (100 mg Medical 00 :00 total) by Center mouth daily for 30 days. senna-docus 2021-2021- No 1{tbl} QD Take [address] ate 01-26 tablet by [facility]ukes (SENOKOT S) 00:00: 23:59 mouth Medi tapan 8.6-50 mg 00 :00 nightly Center per tablet for 30 days. phenytoin 2021-2021- No 300mg QD Take [address] extended 01-23 04-08 mg by [facility]ukes (DILANTIN) 08:05: 00:00 mouth Medic al 300 MG ER 14 :00 nightly. Center capsule phenytoin No 300mg QD Take [address] extended 4-08 04-08 mg by [facility] (DILANTIN) 08:05: 00:00 mouth Medic al 300 MG ER 14 :00 nightly. Center capsule omeprazole 2021- No 40mg Q.5D Take [address] (PriLOSEC) 4-05 04-05 by mouth 2 [facility] 40 MG 17:21: 00:00 (two) Medical capsule 59 :00 times Center daily. aspirin 81 2021- No 81mg QD Take [address] MG chewable 01-20 04-05 by mouth Luis es tablet 17:21: 00:00 daily. Medical 59 :00 [place] omeprazole 2021- No 40mg Q.5D Take [address] (PriLOSEC) 4-05 04-05 by mouth 2 [facility] 40 MG 17:21: 00:00 (two) Medical capsule 59 :00 times Center daily. aspirin 81 2021- No 81mg QD Take [address] MG chewable 01-20 04-05 by mouth Luis es tablet 17:21: 00:00 daily. Medical 59 :00 [place] divalproex 2020-10 No 250mg 250 mg, Un oz ER [...] 09/15/21 at 1645, ELEONORA pantoprazol 2020-10 Yes [id number] 40mg Take 1 Univers e 40 mg EC 1-09 tablet by ity of tablet 00:00: mouth 2 [place] 00 (two) Medical times Branch daily. lidocaine 2020-10 Yes [id number] 10mL Take 10 mL Univers 2% viscous 1-09 by mouth ity o f 2 % 00:00: every 6 [place] solution 00 (six) Medical hours as Branch needed for Oral mucosal pain. sucralfate 2020-10 Yes [id number] 1000mg Take 10 mL Univers 100 mg/mL 1-09 by mouth 4 ity of suspension 00:00: (four) [place] 00 times Medical daily. Branch pantoprazol 2020-10 Yes [id number] 40mg Take 1 Univers e 40 mg EC 1-09 tablet by ity of tablet 00:00: mouth 2 [place] 00 (two) Medical times Branch daily. lidocaine 2020-10 Yes [id number] 10mL Take 10 mL Univers 2% viscous 1-09 by mouth ity o f 2 % 00:00: every 6 [place] solution 00 (six) Medical hours as Branch needed for Oral mucosal pain. sucralfate 2020-10 Yes [id number] 1000mg Take 10 mL Univers 100 mg/mL 1-09 by mouth 4 ity of suspension 00:00: (four) [place] 00 times Medical daily. Branch pantoprazol 2020-10 Yes [id number] 40mg Take 1 Univers e 40 mg EC 1-09 tablet by ity of tablet 00:00: mouth 2 [place] 00 (two) Medical times Branch daily. lidocaine 2020-10 Yes [id number] 10mL Take 10 mL Univers 2% viscous 1-09 by mouth ity o f 2 % 00:00: every 6 [place] solution 00 (six) Medical hours as Branch needed for Oral mucosal pain. sucralfate 2020-10 Yes [id number] 1000mg Take 10 mL Univers 100 mg/mL [...] tablet 00:00: [place] 00 Medical Branch levETIRAcet 2021-1 Yes Univer s am 500 mg 1-03 ity of tablet 00:00: [facility] Branch divalproex 2020-10 Yes Univers 500 mg EC -03 ity of tablet 00:00: [facility] Branch FLUoxetine 2020-10 Yes 10mg Take 10 mg U nivers 10 mg 0-22 by mouth ity of tablet 00:00: daily. [facility] FLUoxetine 2020-10 Yes 10mg Take 10 mg U nivers 10 mg 0-22 by mouth ity of tablet 00:00: daily. [facility] FLUoxetine 2020-10 Yes 10mg Take 10 mg U nivers 10 mg 0-22 by mouth ity of tablet 00:00: daily. [place] [facility] gabapentin 2020-10 Yes 300mg Take 300 Un oz 300 mg 0-21 mg by ity of capsule 00:00: mouth 3 (three) Medical times Branch daily. baclofen 10 2020-10 Yes TAKE ONE Un oz mg tablet 0-21 (1) ity of 00:00: TABLET(S) BY [facility] Medical THREE Branch TIMES A DAY NEEDED. gabapentin 2020-10 Yes 300mg Take 300 Un oz 300 mg 0-21 mg by ity of capsule 00:00: mouth 3 (three) Medical times Branch daily. baclofen 10 2020-10 Yes TAKE ONE Un oz mg tablet 0-21 (1) ity of 00:00: TABLET(S) BY [facility] Medical THREE Branch TIMES A DAY NEEDED. [...] 10 8-09 ity of mg tablet 00:00: [facility] Branch metoclopram 2020-0 Yes Univer s steven HCl 10 8-09 ity of mg tablet 00:00: [facility] metoclopram 2020- Yes Univer s steven HCl 10 8-09 ity of mg tablet 00:00: Medical Branch ondansetron Yes [id number] 4mg Take 1 Univers (ZOFRAN 5-30 tablet by ity of ODT) 4 mg 00:00: mouth [place] disintegrat 00 every 8 Medic al ing tablet (eight) Branch hours as needed for Nausea and Vomiting (N/V). ondansetron Yes [id number] 4mg Take 1 Univers (ZOFRAN 5-30 tablet by ity of ODT) 4 mg 00:00: mouth [place] disintegrat 00 every 8 Medic al ing tablet (eight) Branch hours as needed for Nausea and Vomiting (N/V). ondansetron Yes [id number] 4mg Take 1 Univers (ZOFRAN 5-30 tablet [...] 01:00:00 116 mm[Hg] Univer sity of pressure [facility] Diastolic blood 2021-09-16 01:00:00 53 mm[Hg] Unive rsity of [facility] Heart rate 2021-09-16 01:00:00 65 /min Universi ty [facility] Respiratory rate 2021-09-16 01:00:00 14 /min [facility] saturation in 2021-09-16 01:00:00 99 /min [facility] Arterial blood by [facility] Pulse oximetry Branch Body temperature 2021-09-15 21:38:00 36.06 Abeba [facility] Body height 2021-09-15 21:38:00 175.3 cm Universi [facility] Body weight 2021-09-15 21:38:00 86.637 kg [facility] BMI 2021-09-15 21:38:00 28.21 [facility]m2 [facility] HEIGHT 2020-11-07 15:01:00 180.3 cm WEIGHT 2020-11-07 15:01:00 81.647 kg Body weight 2022-01-29 05:19:00 107.23 kg [facility] BMI 2022-01-29 05:19:00 32.99 kg/m2 [facility] Systolic blood 2022-01-29 05:12:00 104 mm[Hg] [facility] Diastolic blood 2022-01-29 05:12:00 56 mm[Hg] [facility] Heart rate 2022-01-29 05:12:00 60 /min [facility] Body temperature 2022-01-29 05:12:00 35.61 Abeba [facility] Respiratory rate 2022-01-29 05:12:00 17 /min [facility] Oxygen saturation in 2022-01-29 05:12:00 95 /min [facility] Arterial blood by Medical nter Pulse oximetry Body height 2022-01-25 10:00:00 180.3 cm [facility] Procedures Procedure Date / Time Performing Clinician Source Performed BASIC METABOLIC PANEL 2022-01-26 04:37:00 Candice Justin [facility] CBC W/PLT COUNT & AUTO 2022-01-26 04:37:00 Candice Justin [facility] DIFFERENTIAL Center CBC W/PLT COUNT & AUTO 2022-01-26 04:37:00 Candice Justin [facility] DIFFERENTIAL Center COMPREHENSIVE METABOLIC 2022-01-24 05:29:00 Candice Justin [facility] PANEL Center CBC W/PLT COUNT & AUTO 2022-01-24 05:29:00 Candice Justin [facility] DIFFERENTIAL [place] VALPROIC ACID LEVEL, 2022-01-24 05:29:00 Sebastian Mendez [facility] TOTAL [place] CBC W/PLT COUNT & AUTO 2022-01-24 05:29:00 Candice Justin [facility] DIFFERENTIAL [place] CBC W/PLT COUNT & AUTO 2022-01-23 04:34:00 [facility] [place] CBC W/PLT COUNT & AUTO 2022-01-23 04:34:00 [facility]ia [place] BASIC METABOLIC PANEL 2022-01-23 04:31:00 Danyell Longo [facility] Leia [place] MAGNESIUM 2022-01-23 04:31:00 [facility] [place] PHOSPHORUS 2022-01-23 04:31:00 [facility] ([facility] & 2022-01-22 17:41:00 Jaylen Mcnulty [facility] REF LABS) [facility] POCT-GLUCOSE METER 2022-01-22 11:48:00 [facility] XR HAND 3 VIEWS LEFT 2022-01-22 10:59:00 [facility] POCT-GLUCOSE METER 2022-01-22 07:59:00 [facility] EEG 12-26 HR CONTINUOUS 2022-01-22 06:36:00 Sherly [facility] MONITORING WITH VIDEO Center POCT-GLUCOSE METER 2022-01-22 06:16:00 Sherly, [facility] CBC W/PLT COUNT & AUTO 2022-01-22 06:09:00 [facility] DIFFERENTIAL Leia [place] BASIC METABOLIC PANEL 2022-01-22 06:09:00 Danyell Longo [facility] Leia [place] MAGNESIUM 2022-01-22 06:09:00 [facility] [place] PHOSPHORUS 2022-01-22 06:09:00 [facility] [place] CBC W/PLT COUNT & AUTO 2022-01-22 06:09:00 Donta [facility] DIFFERENTIAL Leia [place] POCT-GLUCOSE METER 2022-01-21 23:47:00 Sherly, [facility] POCT-GLUCOSE METER 2022-01-21 16:14:00 [facility] VALPROIC ACID LEVEL, 2022-01-21 14:00:00 Bonnie Duran [facility] Center POCT-GLUCOSE METER 2022-01-21 08:54:00 [facility] EEG 12-26 HR CONTINUOUS 2022-01-21 07:05:00 Hanane Baker [facility] Medical MONITORING WITH VIDEO Center CBC W/PLT COUNT & AUTO 2022-01-21 05:14:00 [facility] DIFFERENTIAL Leia [place] BASIC METABOLIC PANEL 2022-01-21 05:14:00 Danyell Longo [facility] Leia Center MAGNESIUM 2022-01-21 05:14:00 [facility] [place] PHOSPHORUS 2022-01-21 05:14:00 [facility]ielos [facility] CBC W/PLT COUNT & AUTO 2022-01-21 05:14:00 Danyell Longo [facility] DIFFERENTIAL Leia Center POCT-GLUCOSE METER 2022-01-20 21:55:00 Alan [facility] POCT-GLUCOSE METER 2022-01-20 16:15:00 Olivia [facility] MAGNESIUM 2022-01-20 13:10:00 [facility] POTASSIUM 2022-01-20 13:10:00 [facility] POCT-GLUCOSE METER 2022-01-20 11:00:00 [facility] CBC W/PLT COUNT & AUTO 2022-01-20 04:52:00 Bianca Tse [facility] HIGH SENSITIVITY 2022-01-20 04:52:00 Bianca Tse [facility] I Center LACTIC ACID, VENOUS 2022-01-20 04:52:00 Bianca Tse [facility] CBC W/PLT COUNT & AUTO 2022-01-20 04:52:00 Bianca Tse [facility] COMPREHENSIVE METABOLIC 2022-01-20 04:51:00 Bianca Tse [facility] PANEL Center MAGNESIUM 2022-01-20 04:51:[address] [facility] PHOSPHORUS 2022-01-20 04:51:[address] [facility] PHENYTOIN LEVEL, TOTAL 2022-01-20 04:51:00 Bianca Tse [facility] PHENYTOIN LEVEL, TOTAL 2022-01-20 04:51:00 Bianca Tse [facility] AND FREE Center VALPROIC ACID LEVEL, 2022-01-20 04:51:00 [facility] TOTAL [place] VITAMIN B12 AND FOLATE 2022-01-20 04:51:00 Bianca Tse [facility] TSH/FREE T4 IF INDICATED 2022-01-20 04:51:00 Bianca Tse [facility] CBC WITH DIFF 2021-09-15 22:38:00 Susanne Roldan [facility] COMP. METABOLIC PANEL 2021-09-15 21:57:00 Susanne Roldan [facility] ([id number]) [facility] Branch VALPROIC ACID, TOTAL 2021-09-15 21:57:00 Susanne Roldan [facility] LACTIC ACID WHOLE BLOOD 2021-09-15 21:54:00 Susanne Roldan [facility] EXTERNAL PROVIDER 2021-09-09 06:01:00 Doctor Unassigned, No [facility] RECORDS Name Medical Branch Plan of Care Planned Activity Planned Date Details Comments Source Future Scheduled 2024-08-[address] [facility] Test 00:00:00 (procedure) [code = [facility] [id number]] Future Scheduled 2024-08-[address] [facility] Test 00:00:00 (procedure) [code = [facility] [id number]] Future Scheduled 2022-06-18 INFLUENZA VACCINE (#1) [facility] Test 00:00:00 [code = INFLUENZA Medical Ce nter VACCINE (#1)] Future Scheduled 2022-06-18 INFLUENZA VACCINE (#1) [facility] Test 00:00:00 [code = INFLUENZA Medical Ce nter VACCINE (#1)] Future Scheduled 1998 DTAP/TDAP/TD VACCINES [facility] Test 00:00:00 (1 - Tdap) [code = Medical C enter DTAP/TDAP/TD VACCINES (1 - Tdap)] Future Scheduled 1998 DTAP/TDAP/TD VACCINES [facility] Test 00:00:00 (1 - Tdap) [code = Medical C enter DTAP/TDAP/TD VACCINES (1 - Tdap)] Future Scheduled 1997 HEPATITIS C SCREENING [facility] Test 00:00:00 [code = HEPATITIS C Medical Center SCREENING] Future Scheduled 1997 HEPATITIS C [facility]CRE[facility]ING [facility] Test 00:00:00 [code = HEPATITIS C Medical Center SCREENING] Future Scheduled [address] [facility] Test 00:00:00 0-64 YRS (1 - PCV) Medical C enter [code = PNEUMOCOCCAL VACCINE 0-64 YRS (1 - PCV)] Future Scheduled [address] [facility] Test 00:00:00 0-64 YRS (1 - PCV) Medical C enter [code = PNEUMOCOCCAL VACCINE 0-64 YRS (1 - PCV)] Future Scheduled 1979 COVID-19 VACCINE (#1) [facility] Test 00:00:00 [code = COVID-[address] VACCINE (#1)] Future Scheduled 1979 COVID-19 VACCINE (#1) [facility] Test 00:00:00 [code = COVID-[address] VACCINE (#1)] Encounters Start End Encounter Admission Attending Care Care Encounter Source Date/Time Date/Time Type Type Clinicians Facility Department ID 2021-08-17 Emergency [facility] [id number] Univers 22:09:39 [facility] 2021-07-23 Inpatient ER JOSHUA, [facility] Neurology [id number] 07:45:15 [facility] 2020-11-07 [id number] [facility] 07:52:00 Charles NELSON JUAQUIN 2020-07-08 Inpatient ER JOSHUA, [facility] Neurology [id number] [facility] 08:39:03 [facility] 2022-01-23 2022-01-29 [facility]patient [facility] PM\\T\\R [id number] [facility] 11:27:00 11:25:00 CANDICE AVRGHESE 2022-01-23 2022-01-29 [facility] [id number] 11:27:00 11:25:00 Encounter Luis Varghese [facility] 2022-01-23 2022-01-29 Hospital [facility] [id number] 11:27:00 11:25:00 Encounter Luis Varghese [facility] 2022-01-19 2022-01-23 [facility] [id number] [facility] 22:47:00 10:53:00 [facility] 2022-01-19 2022-01-23 [facility] [address] [facility] [id number] [facility]00 10:53:00 Encounter Hanane Baker marely [facility] 2022-01-19 2022-01-23 [facility] Hayes Freitas [facility] [id number] [facility] 10:53:00 Encounter Hanane Baker [facility] 2022-01-23 2022-01-23 Travel [facility] [id number] [facility] 00[facility]:00 [facility] 2022-01-23 2022-01-23 Travel [facility] [id number] [facility]00 [facility] 2022-01-19 2022-01-19 Travel [facility] [id number] [facility] 00[facility]00 [facility] 2022-01-19 2022-01-19 Travel [facility] [id number] [facility] 00[facility]00 [facility] 2022-01-15 2022-01-15 [facility]at [facility] [id number] [facility] 00[facility]00 [facility] 2022-01-15 2022-01-15 Documentat [facility] [id number] [facility] 00[facility]00 [facility] 2021-09-15 2021-09-15 Emergency [facility] E[facility] [id number] Univers 15:37:00 20:00:00 SUSANNE velásquez [facility] 2021-09-15 2021-09-15 Emergency Jamar [facility] 1.2.840.114 [id number] Univers 15:37:00 20:00:00 Susanne FAN 350.1.13.10 christen [facility] 4.2.7.2.686 [facility] [phone] [place] [address] Branch 2021-09-092021-09-09 Orders Doctor JENNIFER 1.2.840.114 [id number] Univers 00:00:00 00:00:00 Only Unassigned, PARVIN 350.1.13.10 [facility] 4.2.7.2.686 [place] as [phone] [facility] 009 Branch 2021-08-28 2021-08-28 Transition RUY Jalloh 1.2.840.114 [id number] Univers 00:00:00 00:00:00 of Care Barbara MCCAULEY 350.1.13.10 i ty of [place] [id number] [facility] 403 Branch 2021-08-22 2021-08-27 Inpatient X [facility] [id number] Univers 14:14:00 18:00:00 [facility] 2021-08-22 2021-08-27 Hospital Jose Day 1.2.840.1 14 [id number] Univers 14:14:00 18:00:00 Encounter FedericozackKaylaan PARVIN 350.1.13.10 ity of [facility] 4.2.7.2.686 [place] [phone] [facility] 093 [place] 2021-08-22 2021-08-27 [facility] [id number] Univers 14:14:00 18:00:00 [facility] 2021-08-26 2021-08-26 [facility] 1.2.853.057 [id number] Univers 07:30:00 08:12:00 Kirill MARCANO 350.1.13.10 ity of [place] 4.2.7.2.686 Diaz as BLDG [id number] [facility] 020 Branch 2021-03-16 2021-03-16 [facility] 1.2.253.616 [id number] Univers 01:37:00 03:38:00 Dee Fan 350.1.13.10 ity of [place] [id number] [facility] 084 Branch 2021-03-16 2021-03-16 Emergency [facility], [facility] 1.2.222.218 [id number] 01:37:00 03:38:00 Dee Fan 350.1.13.10 [place] 4.2.7.2.686 [place] [id number] 2020-12-12 2020-12-12 Orders Doctor JENNIFER 1.2.840.114 [id number] Univers 00:00:00 00:00:00 Only Unassigned, PARVIN 350.1.13.10 ity of [place] [facility] 4.2.7.2.686 [place] as [phone] [facility] 009 [place] 2020-12-12 2020-12-12 Orders Doctor JENNIFER 1.2.840.114 [id number] 00:00:00 00:00:00 Only Unassigned, PARVIN 350.1.13.10 [place] [facility] 4.2.7.2.686 [id number] 009 2020-11-30 2020-11-30 Telephone [facility] 1.2.840.114 [id number] Univers 00:00:00 00:00:00 Boo Fan 350.1.13.10 ity of [place].2.[place] [phone] [address] 2020-11-30 2020-11-30 Telephone [facility] 1.2.840.114 [id number] 00:00:00 00:00:00 Boo Fan 350.1.13.10 [place] 4.2.7.2.686 Professio [phone] [address] 2020-10-31 2020-10-31 Telephone [facility] 1.2.840.114 [id number] [facility] 00:00:00 00:00:00 Boo Fan 350.1.13.10 ity of [place] [phone] [address] 2020-10-31 2020-10-31 Telephone [facility] 1.2.840.114 [id number] 00:00:00 00:00:00 Boo Tejeda Trudy 350.1.13.10 [place] 4.2.7.2.686 Professio [id number] [address] 2020-09-06 2020-09-06 Orders Doctor RODRIGUEZ 1.2.840.114 [id number] Univers 00:00:00 00:00:00 Only Unassigned, PARVIN 350.1.13.10 ity of [place] [facility] 4.2.7.2.686 Diaz as [phone] [address] 2020-09-06 2020-09-06 Orders Doctor JENNIFER 1.2.840.114 [id number] 00:00:00 00:00:00 Only Unassigned, PARVIN 350.1.13.10 [place] [facility] 4.2.7.2.686 [id number] [facility] [place][note 2] 2020-08-18 2020-08-18 Orders Doctor RODRIGUEZ 1.2.840.114 [id number] Univers 00:00:00 00:00:00 Only Unassigned, PARVIN 350.1.13.10 ity of [place] [facility] 4.2.7.2.686 [place] as [id number] [address] 2020-08-18 2020-08-18 Orders Doctor RODRIGUEZ 1.2.840.114 [id number] 00:00:00 00:00:00 Only Unassigned, PARVIN 350.1.13.10 [place] [facility] 4.2.7.2.686 [phone] [facility] [place][note 2] 2020-08-06 2020-08-14 Office [facility] 1.2.840.114 [id number] [facility] 08:52:45 13:22:47 Visit Boo [place] 350.1.13.10 ity of [place] [phone] Az dical [address] 2020-08-06 2020-08-14 Office [facility] 1.2.840.114 [id number] 08:52:45 13:22:47 Visit Boo [place] 350.1.13.10 [place] 4.2.7.2.686 Professio [phone] [address] 2020-08-13 2020-08-13 Telephone Blayne [facility] 1.2.840.114 [id number] Univers 00:00:00 00:00:00 Boo Fan 350.1.13.10 ity of [place] [phone] Az dical nal [address] [place] [address] 2020-08-06 2020-08-06 Outpatient R BOO CISNEROS [facility] [id number] Univers 08:40:00 08:40:00 BOO CISNEROS ity of [facility] 2020-08-06 2020-08-06 Orders Doctor JENNIFER 1.2.840.114 [id number] Univers 00:00:00 00:00:00 Only Unassigned, PARVIN 350.1.13.10 ity of [place] [facility] 4.2.7.2.686 Diaz as [phone] [address] Results Test Description Test Time Test [...] NOT 1092) ACCURATE CRE ATININE CLEARANCE IN ID EDICTING GLOMERULAR FILT RATION RATE. ESTIMATED GFR IS NOT APPLICABLE FOR DIALYSIS PATIENTS. CBC W/PLT COUNT & AUTO [id number] 05:30:33 Test Item Value Reference Range Interpretation [...] (test code = 2801) VALPROIC ACID LEVEL, [id number] 09:06:07 Test Item Value Reference Range Interpretation Comments VALPROIC ACID TOTAL (BEAKER) (test 48 ug/mL 50-100 L code = 924) Therapeutic range for some clinical conditions may be >100 ug/mLOperator ID - JAYLIN MCOMPREHENSIVE METABOLIC [id number] 06:29:58 Test Item Value Reference Range Interpretation [...] PATIEN TS. CBC W/PLT COUNT & AUTO [id number] 06:03:49 Test Item Value Reference Range Interpretation [...] (BEAKER) (test code = 2801) BASIC METABOLIC [id number] 05:29:09 Test Item Value Reference Range Interpretation [...] S NOT APPLICABLE FOR DIALYSIS PATIEN TS. Catalogue Compiler ID - ISAURA [id number] 05:29:09 Test Item Value Reference Range Interpretation Comments MAGNESIUM (BEAKER) (test code = 1.8 mg/dL 1.6-2.6 627) Catalogue Compiler ID - ISAURA [id number] 05:29:09 Test Item Value Reference Range Interpretation Comments PHOSPHORUS (BEAKER) (test code = 3.7 mg/dL 2.3-4.7 604) Catalogue Compiler ID - ISAURA LCBC W/PLT COUNT & AUTO [id number] 05:02:50 Test Item Value Reference Range Interpretation [...] Comments SARS-COV2/RT-PCR (test Negative Negative code = 99143-1) TUCKER (test code = TUCKER) Negative result [...] the Act. Testing was performed using the Riley SARS-CoV-2 assay. Fact Sheet for Healthcare Providers:https://www.bri rice/sis/RT SARS-CoV-2 HCP Fact Sheet 51-414364.pdf Fact Sheet for Healthcare Patients:https://www.SuperflymakennaHashCube/sis/RT SARS-CoV-2 Patient Fact Sheet EN 51-046077L4.pdf Lab Interpretation Normal (test code = 40682-1) [facility]2022-01-23 01:04:16 Test Item Value Reference Range Interpretation Comments SARS-COV2/RT-PCR (test Negative Negative code = 66442-5) TUCKER (test code = TUCKER) Negative result [...] the Act. Testing was performed using the [employer] SARS-CoV-2 assay. Fact Sheet for Healthcare Providers:https://www.bri rice/sis/RT SARS-CoV-2 HCP Fact Sheet 51-734684.pdf Fact Sheet for Healthcare Patients:https://www.beto dscoveredmakennaHashCube/sis/RT SARS-CoV-2 Patient Fact Sheet EN 51-843792F3.pdf Lab Interpretation Normal (test code = 49997-4) [facility] ([facility])2022-01-23 01:04:16 Test Item Value Reference Range Interpretation Comments SARS-COV2/RT-PCR (test code = Negative Negative 4853100) Negative result for this test determines that [...] 564(g) of the Act.Testing was performed using [employer] SARS-CoV-2 assay.Fact Sheet for Healthcare Providers:https://www.Niwa.riley/sis/RT SARS-CoV-2 HCP Fact Sheet 51- 724697.pdfFact Sheet for Healthcare Patients:https://www.Niwa.CHARMS PPEC/sis/RT SARS-CoV-2 Patient Fact Sheet EN 51-568219B2.pdfPOC-Glucose byufg5765-35-60 12:00:30 Test Item Value Reference Range Interpretation Comments POC-Glucose Meter (test 111 mg/dL 70-110 H : TE STED AT [facility] code = 1538) [address] [place] [address], [facility] 30: Catalogue Compiler/Techni melvin ID = [id number] for AKINSONU, BEATRIZ Lab Interpretation (test Abnormal code = 23836-4) [facility] [id number] 12:00:30 Test Item Value Reference Range Interpretation Comments POC-Glucose Meter (test 111 mg/dL 70-110 H : TE STED AT [facility] code = 1538) [address] [place] [address], [facility] 30: Catalogue Compiler/Techni melvin ID = [id number] for AKINSONU, BEATRIZ Lab Interpretation (test Abnormal code = 12962-6) [facility]-GLUCOSE [id number] 12:00:30 Test Item Value Reference Range Interpretation Comments POC-GLUCOSE METER 111 mg/dL 70-110 H : TESTED A T [facility] 6720 (JENANE) (test code = YAYA GALDAMEZ [place], 1538) [address]: Catalogue Compiler/Techni melvin ID = [id number] for [place] INSPASCALEU, BEATRIZ RAD, HAND, 3 VIEWS, [id number] 11:54:00Reason for exam:->pain after seizure, eval for trauma/fracture [facility] : 1980 Sex: MFINAL REPORT EXAMINATION: RAD, HAND, 3 VIEWS, LEFT INDICATION: Pain, seizure COMPARISON: None FINDINGS: Radiographs of the left hand demonstrate no acute fracture or dislocation. Alignment is anatomic. Unremarkable soft tissues. IMPRESSION: No acute osseous injury Signed: [facility] Verified Date/Time: 01/22/2022 11:54:14 POCT-GLUCOSE [id number] 08:11:07 Test Item Value Reference Range Interpretation Comments POC-GLUCOSE METER 76 mg/dL 70-110 : TESTED A T [facility] 6720 (JEANNE) (test code = YAYA [place] [facility], 1538) 25535: Catalogue Compiler/Techni melvin ID = [id number] for BEATRIZ VILLALTA [id number] 06:46:53 Test Item Value Reference Range Interpretation Comments MAGNESIUM (BEAKER) (test code = 1.9 mg/dL 1.6-2.6 627) Catalogue Compiler ID - [id number] 06:46:53 Test Item Value Reference Range Interpretation Comments PHOSPHORUS (BEAKER) (test code = 3.6 mg/dL 2.3-4.7 604) Catalogue Compiler ID - BSBASIC METABOLIC [id number] 06:46:52 Test Item Value Reference Range Interpretation [...] S NOT APPLICABLE FOR DIALYSIS PATIEN TS. Catalogue Compiler ID - BSCBC W/PLT COUNT & AUTO [id number] 06:45:34 Test Item Value Reference Range Interpretation [...] PERCENT (BEAKER) (test code = 2801) POCT-GLUCOSE [id number] 06:27:54 Test Item Value Reference Range Interpretation Comments POC-GLUCOSE METER 101 mg/dL 70-110 : TESTED A T [facility] 6720 (BEAKER) (test code = [facility], 1538) 87536: Catalogue Compiler/Techni melvin ID = [id number] for Eugenia Dalynda POCT-GLUCOSE [id number] 23:58:55 Test Item Value Reference Range Interpretation Comments POC-GLUCOSE METER 99 mg/dL 70-110 : TESTED A T [facility] 6720 (BEAKER) (test code = [facility], 1538) 41171: Catalogue Compiler/Techni melvin ID = [id number] for Jennifer gracia Trimednda POCT-GLUCOSE [id number] 16:25:08 Test Item Value Reference Range Interpretation Comments POC-GLUCOSE METER 95 mg/dL 70-110 : TESTED A T [facility] 6720 (BEAKER) (test code = [facility] Mainor [facility], 1538) 48498: Catalogue Compiler/Techni melvin ID = [id number] for [place], [employer] VALPROIC ACID LEVEL, [id number] 14:53:33 Test Item Value Reference Range Interpretation Comments VALPROIC ACID TOTAL (BEAKER) (test 36 ug/mL 50-100 L code = 924) Therapeutic range for some clinical conditions may be >100 ug/mLOperator ID - ISAURA LPOCT-GLUCOSE [id number] 09:05:57 Test Item Value Reference Range Interpretation Comments POC-GLUCOSE METER 92 mg/dL 70-110 : TESTED A T [facility] 6720 (BEAKER) (test code = [facility] Mainor [facility], 1538) 70476: Catalogue Compiler/Techni melvin ID = [id number] for [place], [employer] [id number] 07:25:22 Test Item Value Reference Range Interpretation Comments PHOSPHORUS (BEAKER) (test code = 3.5 mg/dL 2.3-4.7 604) Catalogue Compiler ID - ISAURA LBASIC METABOLIC [id number] 07:25:21 Test Item Value Reference Range Interpretation [...] S NOT APPLICABLE FOR DIALYSIS PATIEN TS. Catalogue Compiler ID - PIRENETTA [id number] 07:25:21 Test Item Value Reference Range Interpretation Comments MAGNESIUM (BEAKER) (test code = 2.0 mg/dL 1.6-2.6 627) Catalogue Compiler ID - ISAURA LCBC W/PLT COUNT & AUTO [id number] 06:33:11 Test Item Value Reference Range Interpretation [...] PERCENT (BEAKER) (test code = 2801) POCT-GLUCOSE [id number] 22:07:10 Test Item Value Reference Range Interpretation Comments POC-GLUCOSE METER 81 mg/dL 70-110 : TESTED A T [facility] 6720 (BEAKER) (test code = [facility], 1538) 17609: Catalogue Compiler/Techni melvin ID = [id number] for Marlen Singletary POCT-GLUCOSE [id number] 16:27:10 Test Item Value Reference Range Interpretation Comments POC-GLUCOSE METER 110 mg/dL 70-110 : TESTED A T [facility] 6720 (BEAKER) (test code = [facility], 1538) 15172: Catalogue Compiler/Techni melvin ID = [id number] for Genesis Reed [id number] 14:01:40 Test Item Value Reference Range Interpretation Comments POTASSIUM (BEAKER) (test code = 4.3 meq/L 3.5-5.1 379) Catalogue Compiler ID - ISAURA [id number] 14:01:39 Test Item Value Reference Range Interpretation Comments MAGNESIUM (BEAKER) (test code = 2.4 mg/dL 1.6-2.6 627) Catalogue Compiler ID - ISAURA LPOCT-GLUCOSE [id number] 11:12:06 Test Item Value Reference Range Interpretation Comments POC-GLUCOSE METER 97 mg/dL 70-110 : TESTED A T [facility] 6720 (BEAKER) (test code = [facility], 1538) 94291: Catalogue Compiler/Techni melvin ID = [id number] for Genesis Martinez CBC W/PLT COUNT & AUTO [id number] 06:11:05 Test Item Value Reference Range Interpretation [...] (test code = 2801) VITAMIN B12 AND [id number] 06:06:00 Test Item Value Reference Range Interpretation Comments VITAMIN B12 (BEAKER) 608 pg/mL 213-816 (test code = 774) FOLATE (BEAKER) 7.90 ng/mL See_Comment [Automated message] (test code = 362) The system which generated this result transmitted ref erence range: >=7.00. The reference range was not used to interpr et this result as normal/abnormal . Catalogue Compiler ID - PIAYA LTSH/FREE T4 IF [id number] 06:05:58 Test Item Value Reference Range Interpretation Comments THYROID STIMULATING HORMONE 1.956 uIU/mL 0.350-4.940 (BEAKER) (test code = 772) Catalogue Compiler ID - CHANDLERRENETTA [id number] 06:02:15 Test Item Value Reference Range Interpretation Comments PHOSPHORUS (BEAKER) (test code = 3.3 mg/dL 2.3-4.7 604) Catalogue Compiler ID - [id number] 06:02:14 Test Item Value Reference Range Interpretation Comments MAGNESIUM (BEAKER) (test code = 1.8 mg/dL 1.6-2.6 627) Catalogue Compiler ID - DBCOMPREHENSIVE METABOLIC [id number] 06:02:14 Test Item Value Reference Range Interpretation [...] S NOT APPLICABLE FOR DIALYSIS PATIEN TS. Catalogue Compiler ID - DBHIGH SENSITIVITY TROPONIN [id number] 05:37:42 Test Item Value Reference Range Interpretation Comments HIGH SENSITIVITY < pg/ml See_Comment [Automated message] TROPONIN I (test code = The system which [id number]) generated this result transmitted ref erence range: <=35. Th e reference range was not used to interpr et this result as normal/abnormal . Catalogue Compiler ID - DBThe SENIOR FIRE PROTECTION ENGINEER STAT High Sensitivity Troponin-I results should be used in conjunctionwith other diagnostic information such as ECG, clinical observations and information, and patient symptoms to aid in the diagnosis of CT.PHENYTOIN LEVEL, [id number] 05:37:18 Test Item Value Reference Range Interpretation Comments PHENYTOIN (DILANTIN) (BEAKER) 13.3 ug/mL 10.0-20.0 (test code = 605) Catalogue Compiler ID - ISAURA LVALPROIC ACID LEVEL, [id number] 05:36:59 Test Item Value Reference Range Interpretation Comments VALPROIC ACID TOTAL (BEAKER) (test 53 ug/mL 50-100 code = 924) Therapeutic range for some clinical conditions may be >100 ug/mLOperator ID - PIAYA LLACTIC ACID, [id number] 05:30:37 Test Item Value Reference Range Interpretation Comments LACTATE BLOOD VENOUS (2) (BEAKER) 0.83 mmol/L 0.50-2.20 (test code = 2872) Catalogue Compiler ID - DBVALPROIC ACID, [id number] 23:29:56 Test Item Value Reference Range Interpretation Comments VALPROIC A (test code = 54 ug/mL 50-100 7902413127) TUCKER (test code = TUCKER) Toxic Range: ?Greater than 100 ug/mL Lab Interpretation (test Normal code = 60105-5) [facility] [id number] 22:55:09 Test Item Value Reference Range Interpretation Comments WBC (test code = See_Comment [Automated 6690-2) message] The sy stem which generated this result transmitted reference range : 4.20 - 10.70 10*3/?L. The reference range was not used to interpret this result as normal/abnormal . RBC (test code = See_Comment L [Automated 789-8) message] The sy stem which generated this [...] RDW-SD (test code = 45.4 fL 38.5-51.6 69218-9) RDW-CV (test code = 14.1 % 12.1-15.4 788-0) PLT (test code = See_Comment H [Automated 777-3) message] The sy stem which generated this result transmitted reference range : 150 - 328 10*3/ ?L. The reference r gerardo was not used to interpret this result as normal/abnormal . MPV (test code = 9.5 fL 9.8-13.0 L 56284-3) NRBC/100 WBC (test See_Comment [Automat ed code = 6776218308) message] The system which generated this result transmitted reference range : 0.0 - 10.0 /100 WBCs. The refer ence range was not u sed to interpret th is result as normal/abnormal . NRBC x10^3 (test code <0.01 See_Comment [Auto mated = 3792430138) message] The s TurtleCelltem which generated this result transmitted reference range : 10*3/?L. The reference range was not used to interpret this result as normal/abnormal . GRAN MAT (NEUT) % 39.7 % (test code = 770-8) IMM GRAN % (test code 0.70 % = 3731102664) LYMPH % (test code = 41.5 % 736-9) MONO % (test code = 15.1 % 5905-5) EOS % (test code = 2.5 % 713-8) BASO % (test code = 0.5 % 706-2) GRAN MAT x10^3(ANC) 2.25 10*3/uL 1.99-6.95 (test code = 9926193777) IMM GRAN x10^3 (test 0.04 10*3/uL 0.00-0.06 code = 3474816954) LYMPH x10^3 (test code 2.36 10*3/uL 1.09-3.23 = 731-0) MONO x10^3 (test code 0.86 10*3/uL 0.36-1.02 = 742-7) EOS x10^3 (test code = 0.14 10*3/uL 0.06-0.53 711-2) BASO x10^3 (test code 0.03 10*3/uL 0.01-0.09 = 704-7) Lab Interpretation Abnormal (test code = 69854-1) [facility] (88586)2021-09-15 22:28:20 Test Item Value Reference Range Interpretation Comments NA (test code = 136 mmol/L 135-145 1602986153) K (test code = 4.3 mmol/L 3.5-5.0 2879295653) CL (test code = 108 mmol/L 98-108 7268349098) CO2 TOTAL (test code = 26 mmol/L 23-31 4632485024) AGAP (test code = 2-16 8787605585) BUN (test code = 16 mg/dL 7-23 1101652234) GLUCOSE (test code = 86 mg/dL 70-110 5558418783) CREATININE (test code = 0.69 mg/dL 0.60-1.25 0190812562) TOTAL BILI (test code = 0.2 mg/dL 0.1-1.6 1203333675) CALCIUM (test code = 8.4 mg/dL 8.6-10.6 L 0020059946) T PROTEIN (test code = 6.0 g/dL 6.3-8.2 L 7865899536) ALBUMIN (test code = 3.4 g/dL 3.5-5.0 L 2923554237) ALK PHOS (test code = 70 U/L 34-122 0709542238) ALTv (test code = 14 U/L 5-50 1742-6) AST(SGOT) (test code = 23 U/L 13-40 9105854424) eGFR (test code = mL/min/1.73m2 1600828352) TUCKER (test code = TUCKER) Association of [...] tests). Lab Interpretation Abnormal (test code = 76260-0) [facility] [id number] 22:01:16 Test Item Value Reference Range Interpretation Comments LACTIC ACID (test code = 1.74 mmol/L 0.50-2.20 2310285741) Lab Interpretation (test code = Normal 60257-8) [facility] [id number] 14:50:00Surgical Pathology Report Case: [id number] Authorizing Provider: Kimberly Mann Collected: 11/09/2020 08:59 AM MD Светлана Ordering Location: [address] Received: 11/11/2020 08:24 AM Service Pathologist: Anahi León MD Specimen: Gallbladder This amendment is issued to correct a transcriptional error. A. GALLBLADDER, CHOLECYSTECTOMY: - CHRONIC CHOLECYSTITIS. Signing Pathologist Direct Phone Line: [phone] electronically signed by Anahi León MD on 11/13/2020 at 2:50 PM [id number] painGallbladderA. Received fresh, labeled with the patient's [...] ranges 0.1-0.3 cm. No gross lesions areidentified. Creamery Worker sections are submitted.Section codeA1: Cystic duct margin (blue), en faceA2: Gallbladder wallChelsea CHRISTIAN Buitrago PA (ASCP)cmPerformed.[facility], Department of Pathology, [address] [place] [address], [facility] of [facility], [address] [place] [address], [facility], [facility] of [facility], [address] [place] [address], GDRNBU EXAM 2020-11-13 11:14:00Surgical Pathology Report Case: [id number] Authorizing Provider: Eleno Keane MD Collected:11/07/2020 03:21 PM Ordering Location: [address] Received: 11/08/2020 08:02 AM Service P [...] OR MALIGNANCY Signing Pathologist Direct Phone Line: [phone] signed by Yadira Gardner MD on 11/08/2020 at 3:25 PMB. GMS stain is pending and will be reported in an addendum.[id number] obstructionA. DuodenumB. Esophagus, distalA. Received in formalin [...] submitted in toto in B1.CHRISTIAN Monroe PA (ASCP)cmPerformed.The interpretation of this case included the use of immunohistochemistry or special stains.Control Slides Examined: In-house known positive controls were evaluated along with the test tissue. These control slides run alongside of the patients sample show appropriate staining. Internal positive and negative controls when available are evaluated Immunohistochemistry technical testingwas performed at [facility] where it was developed and its performance characteristics were determined. It has not been cleared or approved by the [place] Food and Drug Administration. The FDA has determined that such clearance or approval is not necessary. Thetest is used for clinical purposes. It should not be regarded as investigational or for research. This laboratory is certified under the Clinical Laboratory Improvement Amendments of 1988 (CLIA-88) as qualified to perform high complexity clinical laboratory testing.BASIC METABOLIC [id number] 04:30:00 Test Item Value Reference Range Interpretation [...] S NOT APPLICABLE FOR DIALYSIS PATIEN TS. Catalogue Compiler ID - [id number] 04:30:00 Test Item Value Reference Range Interpretation Comments MAGNESIUM (BEAKER) (test code = 1.8 mg/dL 1.6-2.6 627) Catalogue Compiler ID - EDASIHEPATIC FUNCTION [id number] 04:30:00 Test Item Value Reference Range Interpretation [...] (test code = 26 U/L 6-55 347) Catalogue Compiler ID - EDASICBC W/PLT COUNT & AUTO [id number] 03:48:00 Test Item Value Reference Range Interpretation [...] 0-1 PERCENT (BEAKER) (test code = 2801) [id number] 05:11:00 Test Item Value Reference Range Interpretation Comments MAGNESIUM (BEAKER) (test code = 1.8 mg/dL 1.6-2.6 627) Catalogue Compiler ID - ADMINHEPATIC FUNCTION [id number] 05:11:00 Test Item Value Reference Range Interpretation [...] (test code = 29 U/L 6-55 347) Catalogue Compiler ID - ADMINBASIC METABOLIC [id number] 05:11:00 Test Item Value Reference Range Interpretation [...] S NOT APPLICABLE FOR DIALYSIS PATIEN TS. Catalogue Compiler ID - ADMINCBC W/PLT COUNT & AUTO [id number] 04:33:00 Test Item Value Reference Range Interpretation [...] 2801) SARS-COV2/RT-PCR ([facility])2020-11-08 09:38:00 Test Item Value Reference Range Interpretation Comments SARS-COV2/RT-PCR (test Negative Not Detected, Negative, code = 7642604) See external report for linked test SARS-COV-2 PERFORMING LAB [facility] (test code = 3305591) Negative result for this test determines that [...] of the Act.Fact Sheet for Healthcare Prov iders:https://www.[employer]/sites/default/files/product/documents/Fact_Sheet_HC _Duopfebov_Nnnk_HRQQ-UfS-8.pdfFact Sheet for Healthcare Patients:https://www.[employer]/sites/default/files/product/docume nts/Nktx_Bpakc_Vpkvisng_Kseq_YTKH-VgL-4.pdfPerforming Laboratory:[facility] [place], [place] [address]IYGDY METABOLIC PANEL 2020-11-08 04:42:00 Test Item Value [...] S NOT APPLICABLE FOR DIALYSIS PATIEN TS. Catalogue Compiler ID - DANA [id number] 04:42:00 Test Item Value Reference Range Interpretation Comments MAGNESIUM (BEAKER) (test code = 1.8 mg/dL 1.6-2.6 627) Catalogue Compiler ID - DANA WHEPATIC FUNCTION [id number] 04:42:00 Test Item Value Reference Range Interpretation [...] (test code = 38 U/L 6-55 347) Catalogue Compiler ID - DANA [id number] 04:42:00 Test Item Value Reference Range Interpretation Comments LIPASE (BEAKER) (test code = 749) 12 U/L 8-78 Catalogue Compiler ID - DANA [id number] 04:35:00 Test Item Value Reference Range Interpretation Comments PARTIAL THROMBOPLASTIN TIME 28.4 seconds 22.5-36.0 (BEAKER) (test code = 760) PROTHROMBIN [id number] 04:35:00 Test Item Value Reference Range Interpretation [...] is 2.5-3.5 for patients wiht mechanical heart valves.CBC W/PLT COUNT & AUTO [id number] 03:57:00 Test Item Value Reference Range Interpretation [...] PERCENT (BEAKER) (test code = 2801) [place], [id number] 16:06:13Reason for exam:->ERCP [facility]ENTERName[facility] BRANDON STEIN : 1980 Sex: MFluoroscopic unit utilized for a procedure performed in the OR. No interpretation was requested. Refer to the operative report for findings. Refer to PACS for patient radiation dose information.MR, BRAIN, WITHOUT [id number] 19:26:00Unlisted Reason for Exam - Click Yes and Enter Reason Below->YesUnlisted Reason for Exam->tingling/numbnessFINAL REPORT MR, BRAIN, WITHOUT CONTRAST, MR, MRA, BRAIN, WITHOUT CONTRAST, MR,MRA, NECK, WITHOUT IV CONTRAST INDICATION: Unlisted Reason for Examtingling/numbness TECHNIQUE: Multiplanar, multisequence MR imaging of the brain without intravenous contrast.MRA of the head utilizing3-D prez-sq-hgjgof technique, with 3-D reconstructions.MRA of the neck utilizing 2-D and 3-D rldo-vi-zblagu technique, with 3-D reconstructions. COMPARISON: None FINDINGS: [...] Mcelroyort Verified Date/Time: 07/08/2020 19:26:58 MR, MRA, BRAIN, WITHOUT [id number] 19:26:00Unlisted Reason for Exam - Click Yes and Enter Reason Below->YesUnlisted Reason for Exam->tingling, numbnessFINAL REPORT MR, BRAIN, WITHOUT CONTRAST, MR, MRA, BRAIN, WITHOUT CONTRAST, MR,MRA, NECK, WITHOUT IV CONTRAST INDICATION: Unlisted Reason for Examtingling/numbness TECHNIQUE: Multiplanar, multisequence MR imaging of the brain without intravenous contrast.MRA of the head utilizing3-D grol-he-sxpxsx technique, with 3-D reconstructions.MRA of the neck utilizing 2-D and 3-D spuh-yg-rhatrd technique, with 3-D reconstructions. COMPARISON: None FINDINGS: [...] 07/08/2020 19:26:58 MR, MRA, NECK, WITHOUT IV [id number] 19:26:00Unlisted Reason for Exam - Click Yes and Enter Reason Below->YesUnlisted Reason for Exam->tingling, numbnessFINAL REPORT MR, BRAIN, WITHOUT CONTRAST, MR, MRA, BRAIN, WITHOUT CONTRAST, MR,MRA, NECK, WITHOUT IV CONTRAST INDICATION: Unlisted Reason for Examtingling/numbness TECHNIQUE: Multiplanar, multisequence MR imaging of the brain without intravenous contrast.MRA of the head utilizing3-D qzop-ot-flybto technique, with 3-D reconstructions.MRA of the neck utilizing 2-D and 3-D xomy-fe-wnnppm technique, with 3-D reconstructions. COMPARISON: None FINDINGS: [...]
[2022-09-03] MEDS ORDERED: MORPHINE 4 MG/ML SYR ONE (15:09)
[2022-09-03] MEDS ORDERED: PIPERACIL/TAZO 3.375 GM VIAL IV ONE (15:10)
[2022-09-03] MEDS ORDERED: FAMOTIDINE 20 MG/2 ML VIAL IV ONE (15:10)
[2022-09-03] MEDS ORDERED: ONDANSETRON 4 MG/2 ML VIAL ONE (15:10)
[2022-09-03 15:42] LABS: Absolute Lymphocytes (CBC) 3.4 K/uL (0.7-4.9); Hematocrit 38.3 % (39.6-49.0); Lymphocytes % 49.4 % (15.3-44.8); RBC Red Blood Cell Count 4.56 M/uL (4.33-5.43)
[2022-09-03 16:34] LABS: ALT/SGPT 14 U/L (12-78); Albumin 2.4 g/dL (3.4-5.0); Alkaline Phosphatase 81 U/L (45-117); BUN Blood Urea Nitrogen 16 mg/dL (7-18); Bicarbonate 31 mmol/L (21-32); Glomerular Filtration Rate 112 ml/min (=/>90); Glucose Level 102 mg/dL (74-106); Lipase 140 U/L (73-393); Protein, Total 5.8 g/dL (6.4-8.2); Sodium Level 140 mmol/L (136-145)
[2022-09-03 16:40] LABS: AST/SGOT 15 U/L (15-37); Bilirubin Total < 0.1 mg/dL (0.2-1.0); Potassium 4.5 mmol/L (3.5-5.1)
[2022-09-03 17:20] LABS: Urine Blood Negative (Negative); Urine Glucose Negative (Negative); Urine Protein Negative (Negative); Urine Specific Gravity 1.025 (1.005-1.030)
--- NOTE | 2022-09-03 17:23 | RAD REPORT ---
EXAM DESCRIPTION: CT - Head Brain Wo Cont - 09/03/2022 5:06 pm CLINICAL HISTORY: Mental status change, unknown cause COMPARISON: Head Brain Wo Cont dated 01/14/2022; Head Brain Wo Cont dated 09/17/2021; Abdomen Pelvis W Contrast dated 09/03/2022 TECHNIQUE: All CT scans are performed using dose optimization technique as appropriate and may inclu de automated exposure control or mA/KV adjustment according to patient size. FINDINGS: No intracranial hemorrhage, hydrocephalus or extra-axial fluid collection.No areas of brai n edema or evidence of midline shift. The paranasal sinuses and mastoids are clear. The calvarium is intact. IMPRESSION: No acute intracranial abnormality.
--- NOTE | 2022-09-03 17:26 | RAD REPORT ---
EXAM DESCRIPTION: CTAbdomen Pelvis W Contrast - 09/03/2022 5:07 pm CLINICAL HISTORY: Abdominal pain, acute, nonlocalized COMPARISON: Abdomen Pelvis W Contrast dated 05/24/2021; Abdomen Pelvis W Contrast dated 03/31/2021; Abdomen Pelvis W Contrast dated 03/14/2021; Abdomen Pelvis W Contrast dated 02/18/2021 TECHNIQUE: CT of the abdomen and pelvis was performed. All CT scans are performed using dose optimization technique as appropriate and may include automated exposure control or mA/KV adjustment according to patient size. FINDINGS: Lower chest: Circumferential thickening of distal esophagus. Dependent atelectasis. Liver: Hepatic steatosis. Biliary: No biliary ductal dilatation. Cholecystectomy Stomach: No significant focal abnormality. Duodenum: No significant focal abnormality. Pancreas: No significant abnormality. Spleen: No significant abnormality. Adrenal: Unchanged benign adrenal nodules Kidney/ureter: No hydronephrosis. No renal calculi. Too small to characterize and/or benign appearing renal lesions are noted. Retroperitoneum: No retroperitoneal adenopathy. Vascular: No aneurysm. Bowel: No significant focal abnormality. Normal appendix. Moderate colonic stool . Peritoneum: No ascites or free air. Bladder: Circumferential bladder wall thickening likely related to chronic bladder outlet obstruction . Reproductive: No adnexal masses. Bones: No acute fracture. Other: n/a IMPRESSION: No acute intra-abdominal or pelvic finding. Normal appendix. Incidental findings as note d above.
--- NOTE | 2022-09-03 17:33 | ER ---
Nurse's Notes [facility] Name: Ta Quezada Age: 42 yrs Sex: Male : 1980 Arrival Date: 09/03/2022 Time: 13:09 Bed 18 Private MD: Diagnosis: Abdominal tenderness;Bladder disorder, unspecified-outlet obstruction;Esophagitis, unspecified Presentation: 09/03 13:22 Chief complaint: Patient states: dried blood in belly button, want to have it checked, kr3 AMS. Coronavirus screen: Vaccine status: Patient reports being unvaccinated. Client denies travel out of the [place] in the last 14 days. Ebola Screen: Patient denies travel to an Ebola-affected area in the 21 days before illness onset. Initial Sepsis Screen: Does the patient meet any 2 criteria? No. Patient's initial sepsis screen is negative. Does the patient have a suspected source of infection? No. Patient's initial sepsis screen is negative. Risk Assessment: Do you want to hurt yourself or someone else? Patient reports no desire to harm self or others. Onset of symptoms is unknown. 13:22 Method Of Arrival: Wheelchair kr3 13:22 Acuity: RENE 3 kr3 Triage Assessment: 13:30 General: Appears uncomfortable, ill, Behavior is cooperative, flat. Pain: Complains of kr3 pain in abdomen. Historical: - Allergies: 13:28 none; kr3 - Home Meds: 13:28 Keppra 1,000 mg Oral tab [Active]; Depakote 125 mg Oral TbEC [Active]; kr3 - PMHx: 13:28 TIA; Seizure; Kidney stones; Hypertension; GERD; Depression; kr3 - PSHx: 13:28 Cholecystectomy; kr3 - Immunization history:: Adult Immunizations not up to date. - Social history:: Smoking status: Patient reports the use of cigarette tobacco products, denies chronic smoking, but will smoke occasionally. Screenin:33 Abuse screen: Denies threats or abuse. Denies injuries from another. Nutritional bp screening: No deficits noted. Tuberculosis screening: No symptoms or risk factors identified. Fall Risk None identified. Assessment: 14:33 General: SEE TRIAGE NOTE. bp 16:30 Reassessment: No changes from previously documented assessment. Patient and/or family bp updated on plan of care and expected duration. Pain level reassessed. 18:27 Reassessment: PT DC HOME WITH FAMILY. bp Vital Signs: 13:22 BP 110 / 71; Pulse 64; Resp 16; Temp 97.9; Pulse Ox 96% on R/A; Weight 108.86 kg; kr3 Height 5 ft. 11 in. (180.34 cm); Pain 5/10; 16:30 BP 117 / 53; Pulse 52; Resp 16; Pulse Ox 97% ; bp 18:28 BP 122 / 67; Pulse 58; Resp 16; Pulse Ox 97% ; bp 13:22 Body Mass Index 33.47 (108.86 kg, 180.34 cm) kr3 ED Course: 13:09 Patient arrived in ED. mr 13:28 Triage completed. kr3 13:31 Arm band placed on right wrist. kr3 14:11 Donte Montenegro, RN is Primary Nurse. bp 14:31 Bruno Rivera MD is Attending Physician. sarah 14:33 Patient has correct armband on for positive identification. Bed in low position. Call bp light in reach. Side rails up X2. Adult w/ patient. 15:30 Inserted saline lock: 20 gauge in right antecubital area, using aseptic technique. bp Blood collected. 17:08 CT Abd/Pelvis - IV Contrast Only In Process Unspecified. EDMS 17:08 CT Head Brain wo Cont In Process Unspecified. EDMS 17:32 Patrice Diaz MD is Referral Physician. sarah 17:33 Referral Physician role handed off by Patrice Diaz MD sarah 17:33 Eugenio Singh MD is Referral Physician. sarah 17:33 Dee Ruiz MD is Referral Physician. sarah 18:28 No provider procedures requiring assistance completed. IV discontinued, intact, bp bleeding controlled, No redness/swelling at site. Pressure dressing applied. Administered Medications: 15:30 Drug: NS 0.9% 1000 ml Route: IV; Rate: 1 bolus; Site: right antecubital; bp 18:27 Follow up: IV Status: Completed infusion; IV Intake: 1000ml bp 15:30 Drug: Pepcid (famotidine) 20 mg Route: IVP; Site: right antecubital; bp 18:27 Follow up: Response: No adverse reaction bp 15:30 Drug: Zofran (Ondansetron) 4 mg Route: IVP; Site: right antecubital; bp 18:27 Follow up: Response: No adverse reaction bp 15:30 Drug: morphine 4 mg Route: IVP; Infused Over: 4 mins; Site: right antecubital; bp 18:27 Follow up: Response: No adverse reaction bp 15:30 Drug: Zosyn (piperacillin-tazobactam) 3.375 grams Route: IVPB; Infused Over: 60 mins; bp Site: right antecubital; 18:00 Drug: Flomax (tamsulosin) 0.4 mg Route: PO; bp 18:27 Follow up: Response: No adverse reaction bp 18:00 Drug: ProTONIX (pantoprazole) 40 mg Route: PO; bp 18:27 Follow up: Response: No adverse reaction bp Medication: 14:33 VIS not applicable for this client. bp Intake: 18:27 IV: 1000ml; Total: 1000ml. bp Outcome: 17:32 Discharge ordered by MD. smith 18:28 Discharged to home ambulatory, with family. bp 18:28 Condition: stable 18:28 Discharge instructions given to patient, family, Instructed on discharge instructions, follow up and referral plans. medication usage, Demonstrated understanding of instructions, follow-up care, medications, Prescriptions given X 3. 18:29 Patient left the ED. bp Signatures: Dispatcher [employer] EDMS Bruno Rivera MD MD cha Rivera, Mary mr Peltier, Brian, RN RN Priti Valverde RN RN kr3
--- NOTE | 2022-09-03 17:33 | EDPHYS ---
Physician Documentation [facility] Name: Ta Quezada Age: 42 yrs Sex: Male : 1980 Arrival Date: 09/03/2022 Time: 13:09 Bed 18 Private MD: ED Physician Bruno Rivera HPI: 09/03 14:44 This 42 yrs old Male presents to ER via Wheelchair with complaints of sarah Weakness, Confustion, Abdominal Pain. 14:44 The patient presents to the emergency department with weakness of the entire body, sarah generalized weakness. Onset: The symptoms/episode began/occurred 2 day(s) ago. Historical: - Allergies: 13:28 none; kr3 - Home Meds: 13:28 Keppra 1,000 mg Oral tab [Active]; Depakote 125 mg Oral TbEC [Active]; kr3 - PMHx: 13:28 TIA; Seizure; Kidney stones; Hypertension; GERD; Depression; kr3 - PSHx: 13:28 Cholecystectomy; kr3 - Immunization history:: Adult Immunizations not up to date. - Social history:: Smoking status: Patient reports the use of cigarette tobacco products, denies chronic smoking, but will smoke occasionally. ROS: 14:45 Constitutional: Negative for fever, chills, and weight loss, Eyes: Negative for injury, sarah pain, redness, and discharge, ENT: Negative for injury, pain, and discharge, Neck: Negative for injury, pain, and swelling, Cardiovascular: Negative for chest pain, palpitations, and edema, Respiratory: Negative for shortness of breath, cough, wheezing, and pleuritic chest pain, Back: Negative for injury and pain, : Negative for injury, bleeding, discharge, and swelling, MS/Extremity: Negative for injury and deformity, Skin: Negative for injury, rash, and discoloration, Neuro: Negative for headache, weakness, numbness, tingling, and seizure, Psych: Negative for depression, anxiety, suicide ideation, homicidal ideation, and hallucinations, Allergy/Immunology: Negative for hives, rash, and allergies, Endocrine: Negative for neck swelling, polydipsia, polyuria, polyphagia, and marked weight changes, Hematologic/Lymphatic: Negative for swollen nodes, abnormal bleeding, and unusual bruising. 14:45 Abdomen/GI: Positive for abdominal pain, of the umbilical area, right upper quadrant, left upper quadrant, right lower quadrant and left lower quadrant. Exam: 14:45 Constitutional: This is a well developed, well nourished patient who is awake, alert, sarah and in no acute distress. Head/Face: Normocephalic, atraumatic. Eyes: Pupils equal round and reactive to light, extra-ocular motions intact. Lids and lashes normal. Conjunctiva and sclera are non-icteric and not injected. Cornea within normal limits. Periorbital areas with no swelling, redness, or edema. ENT: Nares patent. No nasal discharge, no septal abnormalities noted. Tympanic membranes are normal and external auditory canals are clear. Oropharynx with no redness, swelling, or masses, exudates, or evidence of obstruction, uvula midline. Mucous membranes moist. Neck: Trachea midline, no thyromegaly or masses palpated, and no cervical lymphadenopathy. Supple, full range of motion without nuchal rigidity, or vertebral point tenderness. No Meningismus. Chest/axilla: Normal chest wall appearance and motion. Nontender with no deformity. No lesions are appreciated. Cardiovascular: Regular rate and rhythm with a normal S1 and S2. No gallops, murmurs, or rubs. Normal PMI, no JVD. No pulse deficits. Respiratory: Lungs have equal breath sounds bilaterally, clear to auscultation and percussion. No rales, rhonchi or wheezes noted. No increased work of breathing, no retractions or nasal flaring. Back: No spinal tenderness. No costovertebral tenderness. Full range of motion. Male : Normal genitalia with no discharge or lesions. Skin: Warm, dry with normal turgor. Normal color with no rashes, no lesions, and no evidence of cellulitis. MS/ Extremity: Pulses equal, no cyanosis. Neurovascular intact. Full, normal range of motion. Neuro: Awake and alert, GCS 15, oriented to person, place, time, and situation. Cranial nerves II-XII grossly intact. Motor strength 5/5 in all extremities. Sensory grossly intact. Cerebellar exam normal. Normal gait. Psych: Awake, alert, with orientation to person, place and time. Behavior, mood, and affect are within normal limits. 14:45 Abdomen/GI: Inspection: abdomen appears normal, Bowel sounds: normal, Palpation: mild abdominal tenderness, in all quadrants, moderate abdominal tenderness, in the umbilical area, Liver: no appreciated palpable abnormalities, Hernia: not appreciated. Vital Signs: 13:22 BP 110 / 71; Pulse 64; Resp 16; Temp 97.9; Pulse Ox 96% on R/A; Weight 108.86 kg; kr3 Height 5 ft. 11 in. (180.34 cm); Pain 5/10; 16:30 BP 117 / 53; Pulse 52; Resp 16; Pulse Ox 97% ; bp 18:28 BP 122 / 67; Pulse 58; Resp 16; Pulse Ox 97% ; bp 13:22 Body Mass Index 33.47 (108.86 kg, 180.34 cm) kr3 MDM: 14:31 Patient medically screened. sarah 14:46 Differential Diagnosis: CVA, electrolyte abnormality, hypoglycemia, intracranial bleed, sarah UTI, volume depletion. Differential diagnosis: Cholelithiasis, diverticulitis, gastritis, gastroesophageal reflux disease, non-specific abd pain, pancreatitis, Pyelonephritis, Ureterolithiasis, urinary tract infection. Data reviewed: vital signs, nurses notes, lab test result(s), radiologic studies, CT scan, plain films. Data interpreted: residential monitor: rate is 64 beats/min, rhythm is regular, Pulse oximetry: on room air is 96 %. Counseling: I had a detailed discussion with the patient and/or guardian regarding: the historical points, exam findings, and any diagnostic results supporting the discharge/admit diagnosis, lab results, radiology results. 09/03 14:38 Order name: CBC with Diff; Complete Time: 16:18 [facility] 09/03 14:38 Order name: CMP; Complete Time: 16:44 [facility] 09/03 14:38 Order name: Lipase; Complete Time: 16:44 [facility] 09/03 17:16 Order name: Urine Drug Screen; Complete Time: 18:24 09/03 17:20 Order name: Urine Dipstick-Ancillary; Complete Time: 17:21 EDMS 09/03 14:38 Order name: CT Abd/Pelvis - IV Contrast Only; Complete Time: 17:30 [facility] 09/03 14:38 Order name: CT Head Brain wo Cont; Complete Time: 17:30 [facility] 09/03 14:38 Order name: IV Saline Lock; Complete Time: 15:38 [facility] 09/03 14:38 Order name: Labs collected and sent; Complete Time: 15:39 [facility] 09/03 14:38 Order name: Urine Dipstick-Ancillary (obtain specimen); Complete Time: 18:26 sarah Administered Medications: 15:30 Drug: NS 0.9% 1000 ml Route: IV; Rate: 1 bolus; Site: right antecubital; bp 18:27 Follow up: IV Status: Completed infusion; IV Intake: 1000ml bp 15:30 Drug: Pepcid (famotidine) 20 mg Route: IVP; Site: right antecubital; bp 18:27 Follow up: Response: No adverse reaction bp 15:30 Drug: Zofran (Ondansetron) 4 mg Route: IVP; Site: right antecubital; bp 18:27 Follow up: Response: No adverse reaction bp 15:30 Drug: morphine 4 mg Route: IVP; Infused Over: 4 mins; Site: right antecubital; bp 18:27 Follow up: Response: No adverse reaction bp 15:30 Drug: Zosyn (piperacillin-tazobactam) 3.375 grams Route: IVPB; Infused Over: 60 mins; bp Site: right antecubital; 18:00 Drug: Flomax (tamsulosin) 0.4 mg Route: PO; bp 18:27 Follow up: Response: No adverse reaction bp 18:00 Drug: ProTONIX (pantoprazole) 40 mg Route: PO; bp 18:27 Follow up: Response: No adverse reaction bp Disposition Summary: 09/03/22 17:32 Discharge Ordered Location: Home sarah Problem: new sarah Symptoms: have improved sarah Condition: Stable sarah Diagnosis - Abdominal tenderness sarah - Bladder disorder, unspecified - outlet obstruction sarah - Esophagitis, unspecified sarah Followup: sarah - With: Private Physician - When: 2 - 3 days - Reason: Recheck today's complaints, Continuance of care, Re-evaluation by your physician Followup: sarah - With: - When: 2 - 3 days - Reason: Recheck today's complaints, Re-evaluation by your physician Followup: sarah - With: Eugenio Singh MD - When: 2 - 3 days - Reason: Recheck today's complaints, Re-evaluation by your physician Followup: sarah - With: Dee Ruiz MD - When: 2 - 3 days - Reason: Recheck today's complaints, Re-evaluation by your physician Discharge Instructions: - Discharge Summary Sheet sarah - Abdominal Pain, Adult sarah - Abdominal Pain, Adult, Zlyt-xs-Lfan sarah - Esophagitis sarah - Cystoscopy [facility] Forms: - Medication Reconciliation Form [facility] - Thank You Letter [facility] - Antibiotic Education sarah - Prescription Opioid Use sarah - Work release form eb Prescriptions: - Flomax 0.4 mg Oral capsule - take 1 capsule by ORAL route once daily 1/2 hour following the same meal each [facility] day; 30 capsule; Refills: 0, Product Selection Permitted - Augmentin 875-125 mg Oral Tablet - take 1 tablet by ORAL route every 12 hours for 10 days; 20 tablet; Refills: 0, [facility] Product Selection Permitted - Protonix 40 mg Oral Tablet - take 1 tablet by ORAL route once daily; 30 tablet; Refills: 0, Product [facility] Selection Permitted Signatures: Dispatcher [employer] EDBruno Galicia MD MD cha Peltier, Brian, RN RN bp Ayala Caban, [employer] [id number] Priti Barnes RN RN kr3
[2022-09-03 17:45] LABS: Barbiturates NEGATIVE (NEGATIVE); Benzodiazepines POSITIVE (NEGATIVE); Cocaine NEGATIVE (NEGATIVE); METHAMPHETAM NEGATIVE (NEGATIVE); Methadone NEGATIVE (NEGATIVE); Opiates NEGATIVE (NEGATIVE); Phencyclidine NEGATIVE (NEGATIVE); THC Cannibis POSITIVE (NEGATIVE)
[2022-09-03] MEDS ORDERED: PANTOPRAZOLE 40MG TABLET PO ONE (18:08)
[2022-09-03] MEDS ORDERED: TAMSULOSIN 0.4 MG SR CAP ONE (18:08)
[2022-09-03 18:45] VITALS: TEMP 97.9
[2022-09-03 18:51] VITALS: O2SAT 97
[2022-09-03 18:57] VITALS: BP 122/67
== END 2022-09-03 18:29 | disposition home or self-care (01) ==
LOC: ER 13:05
DX: R10.819 Abdominal tenderness, unspecified site (principal); N32.89 Other specified disorders of bladder; K20.90 Esophagitis, unspecified without bleeding; I10 Essential (primary) hypertension; F17.210 Nicotine dependence, cigarettes, uncomplicated
CPT/HCPCS: 96361; 85025; 36415; 81003; 83690; 80053; 80307; 70450; 74177; 96375; 96374; 99284; Q9967; J2543; J2405

== ENCOUNTER 2022-11-05 22:39 | Emergency (ER) | payer OTHER ==
--- OUTSIDE RECORDS SUMMARY | 2022-11-05 22:43 | XMS REPORT | Continuity of Care Document ---
:1980 Author Organization [facility] t Address [address] [place] [address] Care Team Providers Name Role Phone DEISY AGEE Primary Care Physician Unavailable VIRGINIA LEWIS Attending Clinician Unavailable JUAQUIN CLARKE Attending Clinician Unavailable Candice Justin MD Attending Clinician CANDICE JUSTIN Attending Clinician Unavailable Fortino GUAMAN, Hayes Hoover Attending Clinician [phone] Hanane Baker MD Attending Clinician Simba Dubois MD Attending Clinician Patrizia GUAMAN, Fausto Myers Attending Clinician [phone] SIMBA DUBOIS Attending Clinician Unavailable SUSANNE ROLDAN Attending Clinician Unavailable Susanne Roldan DO Attending Clinician Doctor Unassigned, [place] Attending Clinician Unavailable Shubham DOMINGUEZ, Barbara Delgadillo Attending Clinician GAVIOTA VALENTINE Attending Clinician Unavailable Jose Day MD Attending Clinician Theodore GUAMAN, Abdiaziz Attending Clinician Gaviota Valentine MD Attending Clinician Kirill Munguia MD Attending Clinician Saloni PHARMACY TECHNOLOGIST, Dee Suarez Attending Clinician Blayne GUAMAN, Boo Tejeda Attending Clinician BOO DONG Attending Clinician Unavailable BOO DONG Attending Clinician Unavailable VIRGINIA LEWIS Admitting Clinician Unavailable JUAQUIN CLARKE Admitting Clinician Unavailable CANDICE JUSTIN Admitting Clinician Unavailable HAYES FREITAS Admitting Clinician Unavailable GAVIOTA VALENTINE Admitting Clinician Unavailable Gaviota Valentine MD Admitting Clinician SCOTT JIM Admitting Clinician Unavailable Payers Payer Name Policy Type Policy Number Effective Date Expiration Date S antonia DOLL FROM [id number] [address] [facility] 00:00:00 Problems Condition Condition Condition Status Onset Resolution Last Treating Co mments Source Name Details Category Date Date Treatment Clinician Date Impaired Impaired Disease Active [facility] and ADLs and ADLs 00:00: Medica l 00 Center TIA TIA Disease Active [facility] (transient (transient 4-05 [facility] ischemic ischemic 00:00: Medica l attack) attack) 00 [place] HTN HTN Disease Active [facility] (hypertens (hypertens 4-05 [facility] ion) ion) 00:00: Medical 00 [place] Substance Substance Disease Active [facility] abuse [...] [facility]04 [facility] 00:00: Medical 00 [place] AMS AMS Disease Active 2020-10 Univers (altered (altered 1-05 ity of mental mental 00:00: [place] status) status) Medical Branch Obesity Obesity Disease Active 2020-10 Univers (BMI (BMI 1-05 ity of 30-39.9) 30-39.9) 00:00: [place] 00 Medical Branch Acute Acute Disease Active 2020-10 Overview: Univer s blood loss blood loss 1-05 [place] ity of anemia anemia 00:00: g of this [place] [id number] note Medical might be Branch different from the original. Added automatic ally from request for surgery [id number] [place] Disease Active C [facility] [...] Active Univers ALLERGIE Class ity of S [facility] NO KNOWN Allergy Active [facility] ALLERGIE S Social History Social Habit Start Date Stop Date Quantity Comments Source Exposure to Not sure [facility] SARS-CoV-2 (event) [facility] History of tobacco Cigarette Smoker [facility] History SDOH [facility] Alcohol Std [...] Univ ersity of 00:00:00 00:00:00 last week [facility] Alcohol intake 2020-11-11 2020-11-11 Ex-drinker [facility] 00:00:00 00:00:00 (finding) Medical Center History SDOH 2020-11-07 2020-11-[address] [facility] Alcohol Frequency 00:00:00 00:00:00 Medical Center Cigarettes smoked 2020-08-06 2020-08-06 Univers ity of current (pack per 00:00:00 00:00:00 ) - Reported Branch Tobacco use and 2020-07-08 2020-07-[address] [facility] exposure 00:00:00 00:00:00 Medical Center Sex Assigned At [address] 00:00:00 00:00:00 Medical Center Smoking Status Start Date Stop Date Source Current every day smoker 2020-08-06 00:00:00 [facility] Medications Ordered Filled Start Stop [...] Center mouth daily for 30 days. nicotine 2021- No 1{patch QD Place 1 [...] Center mouth daily for 30 days. nicotine 2021- No 1{patch QD Place 1 [...] 18 :00 (two) Center times daily. baclofen 2021-2021- No 10mg Q.5D Take [address] (LIORESAL) 4-11 04-11 by mouth 2 [facility] 10 MG 14:42: 00:00 (two) Medical tablet 18 :00 times Center daily. sucralfate 2021-2021- No 1g Q.5D Take [address] (CARAFATE) 4-11 04-11 by mouth 2 [facility] kes 1 gram 14:42: 00:00 (two) Medical tablet 18 :00 times Center daily. gabapentin 2021-0 2021- No 600mg Q.5D Take [address] (NEURONTIN) 4-11 04-11 mg by [facility] 600 MG 14:42: 00:00 mouth 2 Medical tablet 18 :00 (two) Center times daily. pantoprazol 2021- No 40mg Q.5D Take [address] [facility] e 4-11 04-11 by mouth 2 [facility] (PROTONIX) 14:42: 00:00 (two) Medic al 40 MG 18 :00 times Center tablet daily. fluoxetine 2021-2021- No 10mg QD Take [address] HCl 4-11 04-11 by mouth [facility] (FLUOXETINE 14:42: 00:00 daily . Me dical ORAL) 18 :00 Center promethazin 2021-2021- No 25mg Take [address] [...] 18 :00 times Center tablet daily. fluoxetine 2021-2021- No 10mg QD Take [address] HCl 4-11 04-11 by mouth [facility] (FLUOXETINE 14:42: 00:00 daily . Me dical ORAL) 18 :00 Center promethazin 2021-0 2021- No 25mg Take [address] [facility] e 4-11 04-11 by mouth [facility] (PHENERGAN) 14:42: 00:00 every 12 M edical 25 MG 18 :00 (twelve) Center tablet hours as needed for Nausea. thiamine 2021-0 2021- No 100mg QD Take 100 CHI [...] Q.5D Take [address] (NEURONTIN) 01-26-11 mg by [facility] 600 MG 14:42: 00:00 mouth 2 Medical tablet 18 :00 (two) Center times daily. pantoprazol 2021-0 2021- No 40mg Q.5D Take [address] e 01-2611 by mouth 2 [facility] (PROTONIX) 14:42: 00:00 (two) Medic al 40 MG 18 :00 times Center tablet daily. levETIRAcet 2021-2021- No 1000mg Take [address] am (KEPPRA) 01-26 tablet [facility] 1000 MG 00:00: 23:59 (1,000 mg Medi tapan tablet 00 :00 total) by Center mouth every 12 (twelve) hours for 30 days. gabapentin 2021-2021- No 300mg Q.[id number] Take [address] (NEURONTIN) 01-26 [id number] capsule [facility] 300 MG 00:00: 23:59 3D (300 mg Medical capsule 00 :00 total) by Center mouth 3 (three) times daily for 30 days. sucralfate 2021-2021- No 1g Take [address] (CARAFATE) 01-26 tablet (1 Luis es 1 gram 00:00: 23:59 g total) Medica l tablet 00 :00 by mouth 2 Center (two) times daily before meals for 30 days. divalproex 2021-2021- No 750mg Q.[id number] Take [address] (DEPAKOTE) 01-26 [id number] tablets [facility] 250 MG EC 00:00: 23:59 3D (750 mg Medi tapan tablet 00 :00 total) by Center mouth 3 (three) times daily for 30 days. pantoprazol 2021-0 2021- No 40mg Q.5D Take 1 CHI [...] for 30 days. gabapentin 2021- No 300mg Q.[id number] Take [address] (NEURONTIN) 01-26 [id number] capsule [facility] 300 MG 00:00: 23:59 3D [...] for 30 days. divalproex 2021- No 750mg Q.[id number] Take [address] (DEPAKOTE) 01-26 [id number] tablets [facility] 250 MG EC 00:00: 23:59 [...] for 30 days. gabapentin 2021- No 300mg Q.[id number] Take [address] (NEURONTIN) 01-26 [id number] capsule [facility] 300 MG 00:00: 23:59 3D [...] for 30 days. divalproex 2021- No 750mg Q.[id number] Take [address] (DEPAKOTE) 01-26 [id number] tablets [facility] 250 MG EC 00:00: 23:59 [...] QD Take [address] ate 4-11 05-11 tablet by [facility] (SENOKOT S) 00:00: 23:59 mouth Medi tapan 8.6-50 mg 00 :00 nightly Center per tablet for 30 days. phenytoin 2021-0 2021- No 300mg QD Take [address] extended 4-08 04-08 mg by [facility] (DILANTIN) 08:05: 00:00 mouth Medic al 300 MG ER 14 :00 nightly. Center capsule phenytoin 2021-0 2021- No 300mg QD Take [address] extended 4-08 04-08 mg by [facility] (DILANTIN) 08:05: 00:00 mouth Medic al 300 MG ER 14 :00 nightly. Center capsule phenytoin 2021-2021- No 300mg QD Take [address] extended 4-08 04-08 mg by [facility] (DILANTIN) 08:05: 00:00 mouth Medic al 300 MG ER 14 :00 nightly. Center capsule omeprazole 2021-0 2021- No 40mg Q.5D Take [address] (PriLOSEC) 4-05 04-05 by mouth 2 [facility] 40 MG 17:21: 00:00 (two) Medical capsule 59 :00 times Center daily. aspirin 81 2021-0 2021- No 81mg QD Take [address] MG chewable 4-05 04-05 by mouth Luis es tablet 17:21: 00:00 daily. Medical 59 :00 Center omeprazole 2021-0 2- No 40mg Q.5D Take [address] (PriLOSEC) 4-05 04-05 by mouth 2 [facility] 40 MG 17:21: 00:00 (two) Medical capsule 59 :00 times Center daily. aspirin 81 2-0 2- No 81mg QD Take [address] MG chewable 4-05 04-05 by mouth Luis es tablet 17:21: 00:00 daily. Medical 59 :00 Center omeprazole 2021-0 2- No 40mg Q.5D Take [address] (PriLOSEC) 4-05 04-05 by mouth 2 [facility] k[facility] 40 MG 17:21: 00:00 (two) Medical capsule 59 :00 times Center daily. aspirin 81 2021-0 2022- No 81mg QD Take [address] MG chewable 05 04-05 by mouth Luis es tablet 17:21: [...] 09/15/21 at 1645, ELEONORA pantoprazol 2020-10 Yes [id number] 40mg Take 1 Univers e 40 mg EC 1-09 tablet by ity of tablet 00:00: mouth 2 [place] 00 (two) Medical times Branch daily. lidocaine 2020-10 Yes [id number] 10mL Take 10 mL Univers 2% viscous 1-09 by mouth ity o f 2 % 00:00: every 6 [place] solution 00 (six) Medical hours as Branch needed for Oral mucosal pain. sucralfate 2020-10 Yes [id number] 1000mg Take 10 mL Univers 100 mg/mL 1-09 by mouth 4 ity of suspension 00:00: (four) [place] 00 times Medical daily. Branch pantoprazol 2020-10 Yes [id number] 40mg Take 1 Univers e 40 mg EC 1-09 tablet by ity of tablet 00:00: mouth 2 [place] 00 (two) Medical times Branch daily. lidocaine 2020-10 Yes [id number] 10mL Take 10 mL Univers 2% viscous 1-09 by mouth ity o f 2 % 00:00: every 6 [place] solution 00 (six) Medical hours as Branch needed for Oral mucosal pain. sucralfate 2020-10 Yes [id number] 1000mg Take 10 mL Univers 100 mg/mL 1-09 by mouth 4 ity of suspension 00:00: (four) [place] 00 times Medical daily. Branch pantoprazol 2020-10 Yes [id number] 40mg Take 1 Univers e 40 mg EC 1-09 tablet by ity of tablet 00:00: mouth 2 (two) Medical times Branch daily. lidocaine 2020-10 Yes [id number] 10mL Take 10 mL Univers 2% viscous 09 by mouth ity o f 2 % 00:00: every 6 [place] [id number] (six) Medical hours as Branch needed for Oral mucosal pain. sucralfate 2020-10 Yes [id number] 1000mg Take 10 mL Univers 100 mg/mL 09 by mouth 4 ity of suspension 00:00: (four) [place] times Medical daily. Branch levETIRAcet 2020-10 Yes Univer s am 500 mg 03 ity of tablet 00:00: Medical Branch divalproex 2020-10 Yes Univers 500 mg EC -03 ity of tablet 00:00: [place] [facility] Branch levETIRAcet 2020-10 Yes Univer s am 500 mg -03 ity of tablet 00:00: [facility] Branch divalproex 2020-10 Yes Univers 500 mg EC -03 ity of tablet 00:00: [facility] Branch levETIRAcet 2020-10 Yes Univer s am 500 mg -03 ity of tablet 00:00: Medical Branch divalproex 2020-10 Yes Univers 500 mg EC 1-03 ity of tablet 00:00: [place] [facility] Branch FLUoxetine 2020-10 Yes 10mg Take 10 mg U nivers 10 mg 0-22 by mouth ity of tablet 00:00: daily. [place] [facility] FLUoxetine 2020-10 Yes 10mg Take 10 mg U nivers 10 mg 0-22 by mouth ity of tablet 00:00: daily. [facility] Branch FLUoxetine 2020-10 Yes 10mg Take 10 mg U nivers 10 mg 0-22 by mouth ity of tablet 00:00: daily. [place] [facility] Branch gabapentin 2020-10 Yes 300mg Take 300 [...] tablet 0-21 (1) ity of 00:00: TABLET(S) [place] 00 BY MOUTH Medical THREE Branch TIMES A DAY NEEDED. gabapentin 2020-10 Yes 300mg Take 300 Un oz 300 mg 0-21 mg by ity of capsule 00:00: mouth 3 (three) Medical times Branch daily. baclofen 10 2020-10 Yes TAKE ONE Un oz mg tablet 0-21 (1) ity of 00:00: TABLET(S) [place] 00 BY MOUTH Medical THREE Branch TIMES A DAY NEEDED. metoclopram Yes Univer s steven HCl 10 8-09 ity of mg tablet 00:00: Medical Branch metoclopram Yes Univer s steven HCl 10 8-09 ity of mg tablet 00:00: Medical Branch metoclopram Yes Univer s steven HCl 10 8-09 ity of mg tablet 00:00: Medical Branch ondansetron Yes [id number] 4mg Take 1 Univers (ZOFRAN 5-30 tablet by ity of ODT) 4 mg 00:00: mouth [place] disintegrat 00 every 8 Medic al ing tablet (eight) Branch hours as needed for Nausea and Vomiting (N/V). ondansetron Yes [id number] 4mg Take 1 Univers (ZOFRAN 5-30 tablet by ity of ODT) 4 mg 00:00: mouth [place] disintegrat 00 every 8 Medic al ing tablet (eight) Branch hours as needed for Nausea and Vomiting (N/V). ondansetron Yes [id number] 4mg Take 1 Univers (ZOFRAN 5-30 tablet [...] 01:00:00 116 mm[Hg] Univer sity of pressure [facility] Diastolic blood 2021-09-16 01:00:00 53 mm[Hg] Unive [facility] Heart rate 2021-09-16 01:00:00 65 /min [facility] Respiratory rate 2021-09-16 01:00:00 14 /min [facility] Oxygen saturation in 2021-09-16 01:00:00 99 /min [facility] Arterial blood by [facility] Pulse oximetry Branch Body temperature 2021-09-15 21:38:00 36.06 Abeba [facility] Body height 2021-09-15 21:38:00 175.3 cm [facility] Body weight 2021-09-15 21:38:00 86.637 kg [facility] BMI 2021-09-15 21:38:00 28.21 kg/m2 [facility] HEIGHT 2020-11-07 15:01:00 180.3 cm WEIGHT 2020-11-07 15:01:00 81.647 kg Body weight 2022-01-29 05:19:00 107.23 kg [facility] BMI 2022-01-29 05:19:00 32.99 kg/m2 [facility] Systolic blood 2022-01-29 05:12:00 104 mm[Hg] [facility] Diastolic blood 2022-01-29 05:12:00 56 mm[Hg] [facility] Heart rate 2022-01-29 05:12:00 60 /min [facility] Body temperature 2022-01-29 05:12:00 35.61 Abeba [facility] Respiratory rate 2022-01-29 05:12:00 17 /min [facility] Oxygen saturation in 2022-01-29 05:12:00 95 /min [facility] Arterial blood by Medical Ce nter Pulse oximetry Body height 2022-01-25 10:00:00 180.3 cm [facility] Procedures Procedure Date / Time Performing Clinician Source Performed BASIC METABOLIC PANEL 2022-01-26 04:37:00 Candice Justin [facility] CBC W/PLT COUNT & AUTO 2022-01-26 04:37:00 Candice Justin [facility] DIFFERENTIAL [place] CBC W/PLT COUNT & AUTO 2022-01-26 04:37:00 Candiec Justin CH [facility] DIFFERENTIAL [place] COMPREHENSIVE METABOLIC 2022-01-24 05:29:00 Candice Justin [facility] PANEL Center CBC W/PLT COUNT & AUTO 2022-01-24 05:29:00 Candice Justin CH [facility] DIFFERENTIAL [place] VALPROIC ACID LEVEL, 2022-01-24 05:29:00 Sebastian Mendez [facility] TOTAL [place] CBC W/PLT COUNT & AUTO 2022-01-24 05:29:00 Candice Justin CH [facility] DIFFERENTIAL [place] CBC W/PLT COUNT & AUTO 2022-01-23 04:34:00 Danyell Longo [facility] DIFFERENTIAL Leia [place] CBC W/PLT COUNT & AUTO 2022-01-23 04:34:00 [facility]OLIC [facility]EL 2022-01-23 04:31:00 [facility] 2022-01-23 04:31:00 [facility] PHOS[facility]US 2022-01-23 04:31:00 [facility] SARS-COV2/RT-PCR ([facility] & 2022-01-22 17:41:00 Jaylen Mcnulty [facility] REF LABS) [facility] POCT-GLUCOSE METER 2022-01-22 11:48:00 Meghna [facility] XR HAND 3 VIEWS LEFT 2022-01-22 10:59:00 Meghna [facility] POCT-GLUCOSE METER 2022-01-22 07:59:00 Meghna [facility] EEG 12-26 HR CONTINUOUS 2022-01-22 06:36:00 Meghna [facility] MONITORING WITH VIDEO Center POCT-GLUCOSE METER 2022-01-22 06:16:00 Meghna [facility] CBC W/PLT COUNT & AUTO 2022-01-22 06:09:00 [facility] BASIC METABOLIC PANEL 2022-01-22 06:09:00 Tonja Longoecca [facility] 2022-01-22 06:09:00 [facility] [place] PHOSPHORUS 2022-01-22 06:09:00 Donta [facility] CBC W/PLT COUNT & AUTO 2022-01-22 06:09:00 Donta [facility] POCT-GLUCOSE METER 2022-01-21 23:47:00 Meghna [facility] POCT-GLUCOSE METER 2022-01-21 16:14:00 [facility], 2022-01-21 14:00:00 Bonnie Duran [facility] TOTAL Center POCT-GLUCOSE METER 2022-01-21 08:54:00 MeghnaSimba [facility] EEG 12-26 HR CONTINUOUS 2022-01-21 07:05:00 Olivia [facility] MONITORING WITH VIDEO Center CBC W/PLT COUNT & AUTO 2022-01-21 05:14:00 [facility] DIFFERENTIAL Leia [place] BASIC METABOLIC PANEL 2022-01-21 05:14:00 Donta [facility] Leia [place] MAGNESIUM 2022-01-21 05:14:00 Donta [facility] Leia [place] PHOSPHORUS 2022-01-21 05:14:[address] [facility] [place] CBC W/PLT COUNT & AUTO 2022-01-21 05:14:00 [facility] DIFFERENTIAL Leia [place] POCT-GLUCOSE METER 2022-01-20 21:55:00 [facility] POCT-GLUCOSE METER 2022-01-20 16:15:00 [facility] MAGNESIUM 2022-01-20 13:10:00 [facility] POTASSIUM 2022-01-20 13:10:00 [facility] POCT-GLUCOSE METER 2022-01-20 11:00:00 [facility] CBC W/PLT COUNT & AUTO 2022-01-20 04:52:00 Bianca Tse [facility] DIFFERENTIAL Center HIGH SENSITIVITY 2022-01-20 04:52:00 Bianca Tse [facility] TROPONIN I Center LACTIC ACID, VENOUS 2022-01-20 04:52:00 Bianca Tse HANNAH [facility] CBC W/PLT COUNT & AUTO 2022-01-20 04:52:00 Bianca Tse CH, I [facility] DIFFERENTIAL Center COMPREHENSIVE METABOLIC 2022-01-20 04:51:00 Bianca Tse [facility] PANEL Center MAGNESIUM 2022-01-20 04:51:00 Bianca Tse [facility] PHOSPHORUS 2022-01-20 04:51:00 Bianca Tse [facility] PHENYTOIN LEVEL, TOTAL 2022-01-20 04:51:00 Wali Tsea KRANTHI [facility] PHENYTOIN LEVEL, TOTAL 2022-01-20 04:51:[address] [facility] AND FREE Center VALPROIC ACID LEVEL, 2022-01-20 04:51:00 [facility] Center VITAMIN B12 AND FOLATE 2022-01-20 04:51:00 Dedrick Bianca [facility] TSH/FREE T4 IF INDICATED 2022-01-20 04:51:00 Bianca Tse [facility] CBC WITH DIFF 2021-09-15 22:38:00 [facility] COMP. METABOLIC PANEL 2021-09-15 21:57:00 Susanne Roldan [facility] ([id number]) [facility] VALPROIC ACID, TOTAL 2021-09-15 21:57:00 Susanne Roldan [facility] LACTIC ACID WHOLE BLOOD 2021-09-15 21:54:00 Susanne Roldan [facility] EXTERNAL PROVIDER 2021-09-09 06:01:00 Doctor Unassigned, No [facility] RECORDS Name Medical Branch Plan of Care Planned Activity Planned Date Details Comments Source Future Scheduled 2024-08-[address] [facility] Test 00:00:00 (procedure) [code = [facility] [id number]] Future Scheduled 2024-08-[address] [facility] Test 00:00:00 (procedure) [code = [facility] [id number]] Future Scheduled 2024-08-[address] [facility] Test 00:00:00 (procedure) [code = [facility] [id number]] Future Scheduled 2022-06-18 INFLUENZA VACCINE (#1) [facility] Test 00:00:00 [code = INFLUENZA Medical Ce nter VACCINE (#1)] Future Scheduled 2022-06-18 INFLUENZA VACCINE (#1) [facility] Test 00:00:00 [code = INFLUENZA Medical Ce nter VACCINE (#1)] Future Scheduled 2022-06-18 INFLUENZA VACCINE (#1) [facility] Test 00:00:00 [code = INFLUENZA Medical Ce nter VACCINE (#1)] Future Scheduled 2021-11-[address] [facility] Test 00:00:00 [facility] r Screening (12+) [code = Tobacco Cessation Counseling and Screening (12+)] Future Scheduled 1998 DTAP/TDAP/TD VACCINES CH I [...] Type Clinicians Facility Department ID 2021-08-17 Emergency [facility] [id number] Univers 22:09:39 ity [facility] 2021-07-23 Inpatient ER JOSHUA, [facility] Neurology [id number] 07:45:15 [facility] 2020-11-07 [facility] [id number] [facility] 07:52:00 Charles NELSON 2020-07-08 Inpatient ER JOSHUA, [facility] Neurology [id number] [facility] 08:39:03 [facility] 2022-01-23 2022-01-29 [facility] [id number] 11:27:00 11:25:00 Encounter Luis Coyle [facility] 2022-01-23 2022-01-29 Inpatient [facility] PM\\T\\R [id number] [facility] 11:27:00 11:25:00 CANDICE COYLE 2022-01-23 2022-01-29 [facility] [id number] 11:27:00 11:25:00 Encounter HalimaLuis ortiz [facility] 2022-01-19 2022-01-23 Hospital UR Hayes Freitas [facility] [id number] [facility] 22:47:00 10:53:00 Encounter Hanane Bkaer [facility] [place] [facility] 2022-01-19 2022-01-23 [facility] UR [facility] [id number] [facility] 22:47:00 10:53:00 [facility] 2022-01-19 2022-01-23 [facility] [id number] 22:47:00 10:53:00 Encounter Hanane Baker [facility] 2022-01-23 2022-01-23 Travel [facility] [id number] [facility] 00:[facility]00 00:00:00 [facility] 2022-01-23 2022-01-23 Travel [facility] [id number] [facility] 00:[facility]:00 00:00:00 [facility] 2022-01-19 2022-01-19 Travel [facility] [id number] [facility] 00:[facility]00 00:00:00 [facility] 2022-01-19 2022-01-19 Travel [facility] [id number] [facility] 00:[facility]:00 00:00:00 [facility] 2022-01-15 2022-01-15 Documentat Olivia [facility] [id number] [facility] 00:[facility]:00 00:00:00 [facility] 2022-01-15 2022-01-15 Documentat Olivia [facility] [id number] [facility] 00:[facility]:00 00:00:00 [facility] 2021-09-15 2021-09-15 Emergency X JAMAR NYERICKSON ERT [id number] Univers 15:37:00 20:00:00 SUSANNE velásquez [facility] 2021-09-15 2021-09-15 Emergency Jamar [facility] [id number] Univers 15:37:00 20:00:00 Susanne FAN [id number] ity of [id number] [place] [id number] [facility] 084 Branch 2021-09-09 2021-09-09 Orders Doctor JENNIFER [id number] Univers 00:00:00 00:00:00 Only Unassigned, PARVIN [id number] ity of [place] [facility] [id number] Diaz as [id number] [facility] 009 Branch 2021-08-28 2021-08-28 Transition RUY Jalloh [id number] Univers 00:00:00 00:00:00 of Care Barbara Delgadillo GARRICK [id number] i ty of [place] [id number] [place] [id number] [facility] 403 Branch 2021-08-22 2021-08-27 Inpatient X [facility] [id number] Univers 14:14:00 18:00:00 [facility] ity [facility] 2021-08-22 2021-08-27 [facility] Shay Jose EMILIE [id number] Univers 14:14:00 18:00:00 Encounter Abdiaziz Jaimes [id number] [facility] [facility] 4.2.7.2.686 [place] [phone] [facility] [address] 2021-08-22 2021-08-27 Inpatient [facility] [id number] Univers 14:14:00 18:00:00 [facility] ity [facility] 2021-08-26 2021-08-26 Surgery Ree, [facility] 1.2.148.797 [id number] Univers 07:30:00 08:12:00 Kirill MARCANO 350.1.13.10 ity of [facility] 4.2.7.2.686 Diaz as BLDG [phone] [facility] [address] 2021-03-16 2021-03-16 Emergency [facility] 1.2.241.682 [id number] 01:37:00 03:38:00 Dee Fan 350.1.13.10 [place] 4.2.7.2.686 [place] [phone] 084 2021-03-16 2021-03-16 Emergency [facility] 1.2.164.338 [id number] Univers 01:37:00 03:38:00 Dee Suarez Trudy 350.1.13.10 [place] [phone] [facility] [address] 2020-12-12 2020-12-12 Orders Doctor JENNIFER 1.2.840.114 [id number] 00:00:00 00:00:00 Only Unassigned, PARVIN 350.1.13.10 [place] [facility] 4.2.7.2.686 [phone] 009 2020-12-12 2020-12-12 Orders Doctor RODRIGUEZ 1.2.840.114 [id number] Univers 00:00:00 00:00:00 Only Unassigned, PARVIN 350.1.13.10 ity of [place] [facility] 4.2.7.2.686 Diaz as [phone] [facility] [address] 2020-11-30 2020-11-30 Telephone [facility] 1.2.840.114 [id number] 00:00:00 00:00:00 Boo Nikhil Fan 350.1.13.10 [place] 4.2.7.2.686 Professio [phone] [address] 2020-11-30 2020-11-30 Telephone [facility] 1.2.840.114 [id number] [facility] 00:00:00 00:00:00 Boo Tejeda Trudy 350.1.13.10 [place] [phone] Or dic[address] 2020-10-31 2020-10-31 [facility] 1.2.840.114 [id number] 00:00:00 00:00:00 Boo Tejeda Trudy 350.1.13.10 [place] 4.2.7.2.686 Professio [phone] [address] 2020-10-31 2020-10-31 Telephone Blayne [facility] 1.2.840.114 [id number] Univers 00:00:00 00:00:00 Boo Fan 350.1.13.10 [place] [phone] Or dical [address] 2020-09-06 2020-09-06 Orders Doctor RODRIGUEZ 1.2.840.114 [id number] 00:00:00 00:00:00 Only Unassigned, PARVIN 350.1.13.10 [place] [facility] 4.2.7.2.686 [phone] [facility] 2020-09-06 2020-09-06 Orders Doctor JENNIFER 1.2.840.114 [id number] Univers 00:00:00 00:00:00 Only Unassigned, PARVIN 350.1.13.10 ity of [place] [facility] 4.2.7.2.686 Diaz as [phone] [address] 2020-08-18 2020-08-18 Orders Doctor RODRIGUEZ 1.2.840.114 [id number] 00:00:00 00:00:00 Only Unassigned, PARVIN 350.1.13.10 [place] [facility] 4.2.7.2.686 [id number] [facility] 2020-08-18 2020-08-18 Orders Doctor JENNIFER 1.2.840.114 [id number] Univers 00:00:00 00:00:00 Only Unassigned, PARVIN 350.1.13.10 ity of [place] [facility] 4.2.7.2.686 [place] as [phone] [address] 2020-08-06 2020-08-14 [facility] 1.2.840.114 [id number] 08:52:45 13:22:47 Visit Boo Fan 350.1.13.10 [place] 4.2.7.2.686 Professio [phone] [address] 2020-08-06 2020-08-14 Office Blayne [facility] 1.2.840.114 [id number] [facility] 08:52:45 13:22:47 Visit Boo Gene [place] 350.1.13.10 ity of [place] [phone] Or dical nal 092 [facility] 2020-08-13 2020-08-13 Telephone Blayne [facility] 1.2.840.114 [id number] Univers 00:00:00 00:00:00 Boo Fan 350.1.13.10 ity of [place].2.[place] [phone] Or dical nal [address] [place] [address] 2020-08-06 2020-08-06 Outpatient R BOO DONG [facility] [id number] [facility] 08:40:00 08:40:00 BOO DONG itdenny [facility] 2020-08-06 2020-08-06 Orders Doctor JENNIFER 1.2.840.114 [id number] Univers 00:00:00 00:00:00 Only Unassigned, PARVIN 350.1.13.10 ity of [place] [facility] 4.2.7.2.686 Diaz as [phone] [address] Results Test Description Test Time Test [...] NOT 1092) ACCURATE CRE ATININE CLEARANCE IN [place] EDICTING GLOMERULAR FILT RATION RATE. ESTIMATED GFR IS NOT APPLICABLE FOR DIALYSIS PATIENTS. CBC W/PLT COUNT & AUTO [id number] 05:30:33 Test Item Value Reference Range Interpretation [...] (test code = 2801) VALPROIC ACID LEVEL, [id number] 09:06:07 Test Item Value Reference Range Interpretation Comments VALPROIC ACID TOTAL (BEAKER) (test 48 ug/mL 50-100 L code = 924) Therapeutic range for some clinical conditions may be >100 ug/mLOperator ID - JAYLIN MCOMPREHENSIVE METABOLIC [id number] 06:29:58 Test Item Value Reference Range Interpretation [...] PATIEN TS. CBC W/PLT COUNT & AUTO [id number] 06:03:49 Test Item Value Reference Range Interpretation [...] (BEAKER) (test code = 2801) BASIC METABOLIC [id number] 05:29:09 Test Item Value Reference Range Interpretation [...] S NOT APPLICABLE FOR DIALYSIS PATIEN TS. Mortgage Advisor ID - ISAURA [id number] 05:29:09 Test Item Value Reference Range Interpretation Comments MAGNESIUM (BEAKER) (test code = 1.8 mg/dL 1.6-2.6 627) Mortgage Advisor ID - ISAURA [id number] 05:29:09 Test Item Value Reference Range Interpretation Comments PHOSPHORUS (BEAKER) (test code = 3.7 mg/dL 2.3-4.7 604) Mortgage Advisor ID - ISAURA LCBC W/PLT COUNT & AUTO [id number] 05:02:50 Test Item Value Reference Range Interpretation [...] Comments SARS-COV2/RT-PCR (test Negative Negative code = 75034-4) TUCKER (test code = TUCKER) Negative result [...] Healthcare Providers:https://www.bri rice/sis/RT SARS-CoV-2 HCP Fact Sheet 51-678252.pdf Fact Sheet for Healthcare Patients:https://www.beto stroud/sis/RT SARS-CoV-2 Patient Fact Sheet EN 51-376091J9.pdf Lab Interpretation Normal (test code = 45389-0) [facility]2022-01-23 01:04:16 Test Item Value Reference Range Interpretation Comments SARS-COV2/RT-PCR (test Negative Negative code = 14095-7) TUCKER (test code = TUCKER) Negative result [...] Healthcare Providers:https://www.bri rice/sis/RT SARS-CoV-2 HCP Fact Sheet 51-198060.pdf Fact Sheet for Healthcare Patients:https://www.beto stroud/sis/RT SARS-CoV-2 Patient Fact Sheet EN 51-498076R8.pdf Lab Interpretation Normal (test code = 85480-2) [facility]2022-01-23 01:04:16 Test Item Value Reference Range Interpretation Comments SARS-COV2/RT-PCR (test Negative Negative code = 72381-4) TUCKER (test code = TUCKER) Negative result [...] Healthcare Providers:https://www.bri rice/sis/RT SARS-CoV-2 HCP Fact Sheet 51-535402.pdf Fact Sheet for Healthcare Patients:https://www.beto stroud/sis/RT SARS-CoV-2 Patient Fact Sheet EN 51-593603O9.pdf Lab Interpretation Normal (test code = 29452-5) [facility] ([facility])2022-01-23 01:04:16 Test Item Value Reference Range Interpretation Comments SARS-COV2/RT-PCR (test code = Negative Negative 6415919) Negative result for this test determines that [...] 564(g) of the Act.Testing was performed using MEDSEEK SARS-CoV-2 assay.Fact Sheet for Healthcare Providers:https://www.Proximal Data.Planet Prestige/sis/RT SARS-CoV-2 HCP Fact Sheet 51- 118793.pdfFact Sheet for Healthcare Patients:https://www.Proximal Data.Planet Prestige/sis/RT SARS-CoV-2 Patient Fact Sheet EN 51-400350W6.pdfPOC-Glucose [id number] 12:00:30 Test Item Value Reference Range Interpretation Comments POC-Glucose Meter (test 111 mg/dL 70-110 H : TE STED AT [facility] code = 1538) [address] [place] [address], [facility] 30: Mortgage Advisor/Techni melvin ID = [id number] for AKINSONU, BEATRIZ Lab Interpretation (test Abnormal code = 90852-7) [facility] [id number] 12:00:30 Test Item Value Reference Range Interpretation Comments POC-Glucose Meter (test 111 mg/dL 70-110 H : TE STED AT [facility] code = 1538) [address] [place] [address], [facility] 30: Mortgage Advisor/Techni melvin ID = [id number] for AKINSONU, BEATRIZ Lab Interpretation (test Abnormal code = 59652-8) [facility] [id number] 12:00:30 Test Item Value Reference Range Interpretation Comments POC-Glucose Meter (test 111 mg/dL 70-110 H : TE STED AT [facility] code = 1538) [address] [place], 7[address] 30: Mortgage Advisor/Techni melvin ID = [id number] for AKINSONU, BEATRIZ Lab Interpretation (test Abnormal code = 32722-5) [facility] HospitalPOCT[facility]UCOSE [id number] 12:00:30 Test Item Value Reference Range Interpretation Comments POC-GLUCOSE METER 111 mg/dL 70-110 H : TESTED A T [facility] 6720 (BEAKER) (test code = YAYA [place] [facility], 1538) [address]: Mortgage Advisor/Techni melvin ID = [id number] for [place] INSONU, BEATRIZ RAD, HAND, 3 VIEWS, [id number] 11:54:00Reason for exam:->pain after seizure, eval for trauma/fracture [facility] : 1980 Sex: MFINAL REPORT EXAMINATION: RAD, HAND, 3 VIEWS, LEFT INDICATION: Pain, seizure COMPARISON: None FINDINGS: Radiographs of the left hand demonstrate no acute fracture or dislocation. Alignment is anatomic. Unremarkable soft tissues. IMPRESSION: No acute osseous injury Signed: Keli ZuritaReport Verified Date/Time: 01/22/2022 11:54:14 POCT-GLUCOSE [id number] 08:11:07 Test Item Value Reference Range Interpretation Comments POC-GLUCOSE METER 76 mg/dL 70-110 : TESTED A T [facility] 6720 (BEAKER) (test code = YAYA [place], 1538) [address]: Mortgage Advisor/Techni melvin ID = [id number] for BEATRIZ VILLALTA [id number] 06:46:53 Test Item Value Reference Range Interpretation Comments MAGNESIUM (BEAKER) (test code = 1.9 mg/dL 1.6-2.6 627) Mortgage Advisor ID - [id number] 06:46:53 Test Item Value Reference Range Interpretation Comments PHOSPHORUS (BEAKER) (test code = 3.6 mg/dL 2.3-4.7 604) Mortgage Advisor ID - BSBASIC METABOLIC [id number] 06:46:52 Test Item Value Reference Range Interpretation [...] S NOT APPLICABLE FOR DIALYSIS PATIEN TS. Mortgage Advisor ID - BSCBC W/PLT COUNT & AUTO [id number] 06:45:34 Test Item Value Reference Range Interpretation [...] PERCENT (BEAKER) (test code = 2801) POCT-GLUCOSE [id number] 06:27:54 Test Item Value Reference Range Interpretation Comments POC-GLUCOSE METER 101 mg/dL 70-110 : TESTED A [place] [facility] 6720 (BEAKER) (test code = [facility], 1538) [address]: Mortgage Advisor/Techni melvin ID = [id number] for Marlen Daly POCT-GLUCOSE [id number] 23:58:55 Test Item Value Reference Range Interpretation Comments POC-GLUCOSE METER 99 mg/dL 70-110 : TESTED A T [facility] 6720 (BEAKER) (test code = [facility], 1538) 639[address]: Mortgage Advisor/Techni melvin ID = [id number] for Marlen Singletary POCT-GLUCOSE [id number] 16:25:08 Test Item Value Reference Range Interpretation Comments POC-GLUCOSE METER 95 mg/dL 70-110 : TESTED A T [facility] 6720 (BEAKER) (test code = [facility], 1538) [address]: Mortgage Advisor/Techni melvin ID = [id number] for [place], [employer] VALPROIC ACID LEVEL, [id number] 14:53:33 Test Item Value Reference Range Interpretation Comments VALPROIC ACID TOTAL (BEAKER) (test 36 ug/mL 50-100 L code = 924) Therapeutic range for some clinical conditions may be >100 ug/mLOperator ID - ISAURA LPOCT-GLUCOSE [id number] 09:05:57 Test Item Value Reference Range Interpretation Comments POC-GLUCOSE METER 92 mg/dL 70-110 : TESTED A T [facility] 6720 (BEAKER) (test code = [facility], 1538) 716[address]: Mortgage Advisor/Techni melvin ID = [id number] for [place], [employer] [id number] 07:25:22 Test Item Value Reference Range Interpretation Comments PHOSPHORUS (BEAKER) (test code = 3.5 mg/dL 2.3-4.7 604) Mortgage Advisor ID - PIAYA LBASIC METABOLIC [id number] 07:25:21 Test Item Value Reference Range Interpretation [...] S NOT APPLICABLE FOR DIALYSIS PATIEN TS. Mortgage Advisor ID - ISAURA [id number] 07:25:21 Test Item Value Reference Range Interpretation Comments MAGNESIUM (BEAKER) (test code = 2.0 mg/dL 1.6-2.6 627) Mortgage Advisor ID - ISAURA LCBC W/PLT COUNT & AUTO [id number] 06:33:11 Test Item Value Reference Range Interpretation [...] PERCENT (BEAKER) (test code = 2801) POCT-GLUCOSE [id number] 22:07:10 Test Item Value Reference Range Interpretation Comments POC-GLUCOSE METER 81 mg/dL 70-110 : TESTED A T [facility] 6720 (BEAKER) (test code = [facility], 1538) [address]: Mortgage Advisor/Techni melvin ID = [id number] for Malren Singletary POCT-GLUCOSE [id number] 16:27:10 Test Item Value Reference Range Interpretation Comments POC-GLUCOSE METER 110 mg/dL 70-110 : TESTED A T [facility] 6720 (BEAKER) (test code = [facility], 1538) [address]: Mortgage Advisor/Techni melvin ID = [id number] for Genesis Reed [id number] 14:01:40 Test Item Value Reference Range Interpretation Comments POTASSIUM (BEAKER) (test code = 4.3 meq/L 3.5-5.1 379) Mortgage Advisor ID - ISAURA [id number] 14:01:39 Test Item Value Reference Range Interpretation Comments MAGNESIUM (BEAKER) (test code = 2.4 mg/dL 1.6-2.6 627) Mortgage Advisor ID - ISAURA LPOCT-GLUCOSE [id number] 11:12:06 Test Item Value Reference Range Interpretation Comments POC-GLUCOSE METER 97 mg/dL 70-110 : TESTED A T [facility] 6720 (BEAKER) (test code = YAYA [place], 1538) [address]: Mortgage Advisor/Techni melvin ID = [id number] for Genesis Martinez CBC W/PLT COUNT & AUTO [id number] 06:11:05 Test Item Value Reference Range Interpretation [...] (test code = 2801) VITAMIN B12 AND [id number] 06:06:00 Test Item Value Reference Range Interpretation Comments VITAMIN B12 (BEAKER) 608 pg/mL 213-816 (test code = 774) FOLATE (BEAKER) 7.90 ng/mL See_Comment [Automated message] (test code = 362) The system which generated this result transmitted ref erence range: >=7.00. The reference range was not used to interpr et this result as normal/abnormal . Mortgage Advisor ID - ISAURA LTSH/FREE T4 IF [id number] 06:05:58 Test Item Value Reference Range Interpretation Comments THYROID STIMULATING HORMONE 1.956 uIU/mL 0.350-4.940 (BEAKER) (test code = 772) Mortgage Advisor ID - ISAURA [id number] 06:02:15 Test Item Value Reference Range Interpretation Comments PHOSPHORUS (BEAKER) (test code = 3.3 mg/dL 2.3-4.7 604) Mortgage Advisor ID - [id number] 06:02:14 Test Item Value Reference Range Interpretation Comments MAGNESIUM (BEAKER) (test code = 1.8 mg/dL 1.6-2.6 627) Mortgage Advisor ID - JEANNECOMPREHENSIVE METABOLIC [id number] 06:02:14 Test Item Value Reference Range Interpretation [...] S NOT APPLICABLE FOR DIALYSIS PATIEN TS. Mortgage Advisor ID - DBHIGH SENSITIVITY TROPONIN [id number] 05:37:42 Test Item Value Reference Range Interpretation Comments HIGH SENSITIVITY < pg/ml See_Comment [Automated message] TROPONIN I (test code = The system which 9020101) generated this result transmitted ref erence range: <=35. Th e reference range was not used to interpr et this result as normal/abnormal . Mortgage Advisor ID - DBThe VEHICLE ASSEMBLER STAT High Sensitivity Troponin-I results should be used in conjunctionwith other diagnostic information such as ECG, clinical observations and information, and patient symptoms to aid in the diagnosis of AR.PHENYTOIN LEVEL, [id number] 05:37:18 Test Item Value Reference Range Interpretation Comments PHENYTOIN (DILANTIN) (BEAKER) 13.3 ug/mL 10.0-20.0 (test code = 605) Mortgage Advisor ID - PIAYA LVALPROIC ACID LEVEL, [id number] 05:36:59 Test Item Value Reference Range Interpretation Comments VALPROIC ACID TOTAL (BEAKER) (test 53 ug/mL 50-100 code = 924) Therapeutic range for some clinical conditions may be >100 ug/mLOperator ID - PIAYA LLACTIC ACID, [id number] 05:30:37 Test Item Value Reference Range Interpretation Comments LACTATE BLOOD VENOUS (2) (BEAKER) 0.83 mmol/L 0.50-2.20 (test code = 2872) Mortgage Advisor ID - DBVALPROIC ACID, [id number] 23:29:56 Test Item Value Reference Range Interpretation Comments VALPROIC A (test code = 54 ug/mL 50-100 6047264677) TUCKER (test code = TUCKER) Toxic Range: ?Greater than 100 ug/mL Lab Interpretation (test Normal code = 45352-9) [facility] WITH [id number] 22:55:09 Test Item Value Reference Range Interpretation Comments WBC (test code = See_Comment [Automated 6507-2) message] The sy stem which generated this result transmitted reference range : 4.20 - 10.70 10*3/?L. The reference range was not used to interpret this result as normal/abnormal . RBC (test code = See_Comment L [Automated 079-8) message] The sy stem which generated this [...] RDW-SD (test code = 45.4 fL 38.5-51.6 60510-8) RDW-CV (test code = 14.1 % 12.1-15.4 788-0) PLT (test code = See_Comment H [Automated 247-3) message] The sy stem which generated this result transmitted reference range : 150 - 328 10*3/ ?L. The reference r gerardo was not used to interpret this result as normal/abnormal . MPV (test code = 9.5 fL 9.8-13.0 L 63239-0) NRBC/100 WBC (test See_Comment [Automat ed code = 6101610287) message] The system which generated this result transmitted reference range : 0.0 - 10.0 /100 WBCs. The refer ence range was not u sed to interpret th is result as normal/abnormal . NRBC x10^3 (test code <0.01 See_Comment [Auto mated = 6638221710) message] The s ystem which generated this result transmitted reference range : 10*3/?L. The reference range was not used to interpret this result as normal/abnormal . GRAN MAT (NEUT) % 39.7 % (test code = 770-8) IMM GRAN % (test code 0.70 % = 0755335234) LYMPH % (test code = 41.5 % 736-9) MONO % (test code = 15.1 % 5905-5) EOS % (test code = 2.5 % 713-8) BASO % (test code = 0.5 % 706-2) GRAN MAT x10^3(ANC) 2.25 10*3/uL 1.99-6.95 (test code = 0866083836) IMM GRAN x10^3 (test 0.04 10*3/uL 0.00-0.06 code = 0050567853) LYMPH x10^3 (test code 2.36 10*3/uL 1.09-3.23 = 731-0) MONO x10^3 (test code 0.86 10*3/uL 0.36-1.02 = 742-7) EOS x10^3 (test code = 0.14 10*3/uL 0.06-0.53 711-2) BASO x10^3 (test code 0.03 10*3/uL 0.01-0.09 = 704-7) Lab Interpretation Abnormal (test code = 54489-3) [facility]. METABOLIC PANEL (31516)2021-09-15 22:28:20 Test Item Value Reference Range Interpretation Comments NA (test code = 136 mmol/L 135-145 2806132774) K (test code = 4.3 mmol/L 3.5-5.0 3907444846) CL (test code = 108 mmol/L 98-108 3441824895) CO2 TOTAL (test code = 26 mmol/L 23-31 7754883469) AGAP (test code = 2-16 3620374149) BUN (test code = 16 mg/dL 7-23 1360474869) GLUCOSE (test code = 86 mg/dL 70-110 5173501719) CREATININE (test code = 0.69 mg/dL 0.60-1.25 2357933316) TOTAL BILI (test code = 0.2 mg/dL 0.1-1.6 8195360839) CALCIUM (test code = 8.4 mg/dL 8.6-10.6 L 6432605765) T PROTEIN (test code = 6.0 g/dL 6.3-8.2 L 1415769666) ALBUMIN (test code = 3.4 g/dL 3.5-5.0 L 0904820399) ALK PHOS (test code = 70 U/L 34-122 7186861441) ALTv (test code = 14 U/L 5-50 1742-6) AST(SGOT) (test code = 23 U/L 13-40 1938209632) eGFR (test code = mL/min/1.73m2 1657118938) TUCKER (test code = TUCKER) Association of [...] tests). Lab Interpretation Abnormal (test code = 19274-6) [facility] [id number] 22:01:16 Test Item Value Reference Range Interpretation Comments LACTIC ACID (test code = 1.74 mmol/L 0.50-2.20 6711934911) Lab Interpretation (test code = Normal 46440-8) [facility] [id number] 14:50:00Surgical Pathology Report Case: [id number] Authorizing Provider: Kimberly Mann Collected: 11/09/2020 08:59 AM MD Светлана Ordering Location: [address] Received: 11/11/2020 08:24 AMService Pathologist: Anahi León MD Specimen: Gallbladder This amendment is issued to correct a transcriptional error. A. GALLBLADDER, CHOLECYSTECTOMY: - CHRONIC CHOLECYSTITIS. Signing Pathologist Direct Phone Line: [phone] electronically signed by Anahi León MD on 11/13/2020 at 2:50 PM 11273Ojrytsubu painGallbladderA. Received fresh, labeled with the patient's [...] 0.1-0.3 cm. No gross lesions are identified. Religion Department Chair sections are submitted.Section codeA1: Cystic duct margin (blue), en faceA2: Gallbladder wallChelsea CHRISTIAN Buitrago PA (ASCP)cmPerformed.[facility], Department of Pathology, [address] [place] [address], [facility], Department of Pathology, [address] [place] [address], VkxliaSanta Barbara Cottage Hospital, Department of Pathology, [address] [place] [address], IOPUMG EXAM 2020-11-13 11:14:00Surgical Pathology Report Case: [id number] Authorizing Provider: Eleno Keane MD Collected:11/07/2020 03:21 PM Ordering Location: [address] Received: 11/08/2020 08:02 AM Service P [...] OR MALIGNANCY Signing Pathologist Direct Phone Line: [phone] signed by Yadira Gardner MD on 11/08/2020 at 3:25 PMB. GMS stain is pending and will be reported in an addendum.[id number] obstructionA. DuodenumB. Esophagus, distalA. Received in formalin [...] submitted in toto in B1.CHRISTIAN Monroe PA ([facility])cmPerformed.The interpretation of this case included the use of immunohistochemistry or special stains.Control Slides Examined: In-house known positive controls were evaluated along with the test tissue. These control slides run alongside of the patients sample show appropriate staining. Internal positive and negative controls when available are evaluated Immunohistochemistry technical testingwas performed at [facility], Pathology Laboratory where it was developed [...] perform high complexity clinical laboratory testing.BASIC METABOLIC [id number] 04:30:00 Test Item Value Reference Range Interpretation [...] S NOT APPLICABLE FOR DIALYSIS PATIEN TS. Mortgage Advisor ID - [id number] 04:30:00 Test Item Value Reference Range Interpretation Comments MAGNESIUM (BEAKER) (test code = 1.8 mg/dL 1.6-2.6 627) Mortgage Advisor ID - EDASIHEPATIC FUNCTION [id number] 04:30:00 Test Item Value Reference Range Interpretation [...] (test code = 26 U/L 6-55 347) Mortgage Advisor ID - EDASICBC W/PLT COUNT & AUTO [id number] 03:48:00 Test Item Value Reference Range Interpretation [...] 0-1 PERCENT (BEAKER) (test code = 2801) [id number] 05:11:00 Test Item Value Reference Range Interpretation Comments MAGNESIUM (BEAKER) (test code = 1.8 mg/dL 1.6-2.6 627) Mortgage Advisor ID - ADMINHEPATIC FUNCTION [id number] 05:11:00 Test Item Value Reference Range Interpretation [...] (test code = 29 U/L 6-55 347) Mortgage Advisor ID - ADMINBASIC METABOLIC [id number] 05:11:00 Test Item Value Reference Range Interpretation [...] S NOT APPLICABLE FOR DIALYSIS PATIEN TS. Mortgage Advisor ID - ADMINCBC W/PLT COUNT & AUTO [id number] 04:33:00 Test Item Value Reference Range Interpretation [...] PERCENT (BEAKER) (test code = 2801) SARS-COV2/RT-PCR ([facility])2020-11-08 09:38:00 Test Item Value Reference Range Interpretation Comments SARS-COV2/RT-PCR (test Negative Not Detected, Negative, code = 9544392) See external report for linked test SARS-COV-2 PERFORMING LAB [facility] (test code = 8605666) Negative result for this test determines that [...] of the Act.Fact Sheet for Healthcare Prov iders:https://www.Maternova/sites/default/files/product/documents/Fact_Sheet_HC _Yemyehmag_Rrmx_XLFQ-MzB-3.pdfFact Sheet for Healthcare Patients:https://www.Maternova/sites/default/files/product/docume nts/Jfyl_Kwjoq_Dibornxx_Lmvm_TAIF-CvN-6.pdfPerforming Laboratory:[place] [address], [place] [address]BVYEN METABOLIC PANEL 2020-11-08 04:42:00 Test Item Value [...] S NOT APPLICABLE FOR DIALYSIS PATIEN TS. Mortgage Advisor ID - DANA [id number] 04:42:00 Test Item Value Reference Range Interpretation Comments MAGNESIUM (BEAKER) (test code = 1.8 mg/dL 1.6-2.6 627) Mortgage Advisor ID Ramsey CORTEZ WHEPATIC FUNCTION [id number] 04:42:00 Test Item Value Reference Range Interpretation [...] (test code = 38 U/L 6-55 347) Mortgage Advisor ID Ramsey CORTEZ [id number] 04:42:00 Test Item Value Reference Range Interpretation Comments LIPASE (BEAKER) (test code = 749) 12 U/L 8-78 Mortgage Advisor ID Ramsey CORTEZ WPROTHROMBIN [id number] 04:35:00 Test Item Value Reference Range Interpretation [...] is 2.5-3.5 for patients wiht mechanical heart valves.[id number] 04:35:00 Test Item Value Reference Range Interpretation Comments PARTIAL THROMBOPLASTIN TIME 28.4 seconds 22.5-36.0 (BEAKER) (test code = 760) CBC W/PLT COUNT & AUTO [id number] 03:57:00 Test Item Value Reference Range Interpretation [...] PERCENT (BEAKER) (test code = 2801) [place], [id number] 16:06:13Reason for exam:->[facility] 1980 Sex: MFluoroscopic unit utilized for a procedure performed in the OR. No interpretation was requested. Refer to the operative report for findings. Refer to PACS for patient radiation dose information.MR, BRAIN, WITHOUT [id number] 19:26:00Unlisted Reason for Exam - Click Yes and Enter Reason Below->YesUnlisted Reason for Exam->tingling/numbnessFINAL REPORT MR, BRAIN, WITHOUT CONTRAST, MR, MRA, BRAIN, WITHOUT CONTRAST, MR,MRA, NECK, WITHOUT IV CONTRAST INDICATION: Unlisted Reason for Examtingling/numbness TECHNIQUE: Multiplanar, multisequence MR imaging of the brain without intravenous contrast.MRA of the head utilizing3-D ngel-nr-bzbcrb technique, with 3-D reconstructions.MRA of the neck utilizing 2-D and 3-D gpcq-fl-qatfrl technique, with 3-D reconstructions. COMPARISON: None FINDINGS: [...] Date/Time: 07/08/2020 19:26:58 MR, MRA, BRAIN, WITHOUT [id number] 19:26:00Unlisted Reason for Exam - Click Yes and Enter Reason Below->YesUnlisted Reason for Exam->tingling, numbnessFINAL REPORT MR, BRAIN, WITHOUT CONTRAST, MR, MRA, BRAIN, WITHOUT CONTRAST, MR,MRA, NECK, WITHOUT IV CONTRAST INDICATION: Unlisted Reason for Examtingling/numbness TECHNIQUE: Multiplanar, multisequence MR imaging of the brain without intravenous contrast.MRA of the head utilizing3-D vgfj-sv-buuzab technique, with 3-D reconstructions.MRA of the neck utilizing 2-D and 3-D cpau-yk-iofmkh technique, with 3-D reconstructions. COMPARISON: None FINDINGS: [...] the head and neck. Signed: Talya Mcelroy MDRsegundoort Verified Date/Time: 07/08/2020 19:26:58 MR, MRA, NECK, WITHOUT IV [id number] 19:26:00Unlisted Reason for Exam - Click Yes and Enter Reason Below->YesUnlisted Reason for Exam->tingling, numbnessFINAL REPORT MR, BRAIN, WITHOUT CONTRAST, MR, MRA, BRAIN, WITHOUT CONTRAST, MR,MRA, NECK, WITHOUT IV CONTRAST INDICATION: Unlisted Reason for Examtingling/numbness TECHNIQUE: Multiplanar, multisequence MR imaging of the brain without intravenous contrast.MRA of the head utilizing3-D blup-ca-fkkncp technique, with 3-D reconstructions.MRA of the neck utilizing 2-D and 3-D yayh-zv-okhdwc technique, with 3-D reconstructions. COMPARISON: None FINDINGS: [...]
[2022-11-05] MEDS ORDERED: COLCHICINE 0.6 MG TAB ONE (23:25)
[2022-11-05] MEDS ORDERED: HYDROCODONE/APAP 5/325 MG TAB ONE (23:26)
--- NOTE | 2022-11-05 23:42 | ER ---
Nurse's Notes [facility] Name: Ta Quezada Age: 42 yrs Sex: Male : 1980 Arrival Date: 11/05/2022 Time: 22:42 Bed 20 Private MD: Diagnosis: Gout, unspecified Presentation: 11/05 22:54 Chief complaint: Patient states: "My right foot is bruised and swollen and hurts . I vc1 have seizures and have fallen a few times so I'm not sure if I hurt it or not.". Coronavirus screen: Vaccine status: Patient reports being unvaccinated. Client denies travel out of the [place] in the last 14 days. At this time, the client does not indicate any symptoms associated with coronavirus-19. Ebola Screen: Patient negative for fever greater than or equal to 101.5 degrees Fahrenheit, and additional compatible Ebola Virus Disease symptoms Patient denies exposure to infectious person. Patient denies travel to an Ebola-affected area in the 21 days before illness onset. Initial Sepsis Screen: Does the patient meet any 2 criteria? RR > 20 per min. No. Patient's initial sepsis screen is negative. Does the patient have a suspected source of infection? No. Patient's initial sepsis screen is negative. Risk Assessment: Do you want to hurt yourself or someone else? Patient reports no desire to harm self or others. Onset of symptoms was November 05, 2022. 22:54 Method Of Arrival: Wheelchair vc1 22:54 Acuity: RENE 3 vc1 Triage Assessment: 22:58 General: Appears in no apparent distress. uncomfortable, Behavior is calm, cooperative, vc1 appropriate for age. Pain: Complains of pain in instep of right foot and dorsum of right foot Pain radiates to right calf Pain currently is 7 out of 10 on a pain scale. at worst was 10 out of 10 on a pain scale. EENT: No deficits noted. Neuro: No deficits noted. Cardiovascular: No deficits noted. Respiratory: Airway is patent Respiratory effort is even, unlabored, Respiratory pattern is regular, symmetrical. GI: No deficits noted. : No deficits noted. No signs and/or symptoms were reported regarding the genitourinary system. Derm: No deficits noted. Musculoskeletal: Reports pain in right foot and right leg. Injury Description: unknown. Historical: - Allergies: 22:58 none; vc1 - Home Meds: 22:58 Depakote 125 mg Oral TbEC [Active]; Keppra 1,000 mg Oral tab [Active]; Lasix Oral vc1 [Active]; pregabalin Oral [Active]; pantoprazole oral [Active]; - PMHx: 22:58 Depression; GERD; Hypertension; Kidney stones; Seizure; TIA; neuropathy; vc1 - PSHx: 22:58 Cholecystectomy; vc1 - Immunization history:: Client reports having NOT received the Covid vaccine. - Social history:: Smoking status: Patient reports the use of cigarette tobacco products, 1 a day. Screenin:03 [facility] ED Fall Risk Assessment (Adult) History of falling in the last 3 months, vc1 including since admission Yes- fall prone (multiple falls) (3 pts) Confusion or Disorientation No (0 pts) Intoxicated or Sedated No (0 pts) Impaired Gait Yes (1 pt) Mobility Assist Device Used Yes (1 pt) Altered Elimination No (0 pt) Score/Fall Risk Level 3 or more points = High Risk Oriented to surroundings, Maintained a safe environment, Educated pt \\T\\ family on fall prevention, incl call for assistance when getting out of bed. Abuse screen: Denies threats or abuse. Nutritional screening: No deficits noted. Tuberculosis screening: No symptoms or risk factors identified. Assessment: 22:46 General: Appears uncomfortable, Behavior is calm, cooperative. Pain: Complains of pain ha1 in right foot Pain does not radiate. Pain currently is 9 out of 10 on a pain scale. Pain began suddenly. Neuro: Level of Consciousness is awake, alert, obeys commands, Oriented to person, place, time, situation. Cardiovascular: Capillary refill < 3 seconds Patient's skin is warm and dry. Respiratory: Airway is patent Respiratory effort is even, unlabored, Respiratory pattern is regular, symmetrical. GI: No signs and/or symptoms were reported involving the gastrointestinal system. : No signs and/or symptoms were reported regarding the genitourinary system. Musculoskeletal: Circulation, motion, and sensation intact. Capillary refill < 3 seconds, Swelling present in right foot. 23:40 Reassessment: Patient and/or family updated on plan of care and expected duration. Pain ha1 level reassessed. Patient is alert, oriented x 3, equal unlabored respirations, skin warm/dry/pink. pain 5/10. 11/06 00:16 Reassessment:. Reassessment: in the room states " this is how he behave whenever ha1 he is about to have a seizure." Care provider notified. seizure precautions put in place. Neuro: Speech is slurred, Reports history of seizure. 01:10 Reassessment: Patient and/or family updated on plan of care and expected duration. Pain ha1 level reassessed. Patient is alert, oriented x 3, equal unlabored respirations, skin warm/dry/pink. Patient states symptoms have improved. Vital Signs: 11/05 22:46 BP 138 / 85; Pulse 88; Resp 20 S; Pulse Ox 98% on R/A; ha1 22:54 BP 139 / 85; Pulse 88; Resp 22; Temp 98.5; Pulse Ox 98% ; Weight 120.2 kg; Height 5 ft. vc1 11 in. (180.34 cm); Pain 7/10; 23:40 BP 129 / 67; Pulse 75; Resp 20 S; Pulse Ox 95% on R/A; ha1 11/06 00:16 BP 155 / 81; Pulse 90; Resp 20 S; Pulse Ox 94% on R/A; ha1 01:10 BP 129 / 81; Pulse 64; Resp 17 S; Pulse Ox 96% on R/A; ha1 11/05 22:54 Body Mass Index 36.96 (120.20 kg, 180.34 cm) vc1 ED Course: 11/05 22:42 Patient arrived in ED. ja2 22:46 Patient has correct armband on for positive identification. Bed in low position. Call ha1 light in reach. Side rails up X 1. Adult w/ patient. 22:48 Sharyn Gray FNP-C is PHCP. snw 22:48 Bruno Rivera MD is Attending Physician. snw 22:58 Triage completed. vc1 23:01 Anabella Ramirez RN is Primary Nurse. ha1 23:04 Arm band placed on right wrist. ha1 23:47 Foot Right 3 View XRAY In Process Unspecified. EDMS 11/06 02:06 No provider procedures requiring assistance completed. Patient did not have IV access ha1 during this emergency room visit. Administered Medications: 11/05 23:15 Drug: Colcrys (colchicine) 1.2 mg Route: PO; ha1 23:40 Follow up: Response: No adverse reaction ha1 23:15 Drug: HYDROcodone-acetaminophen 5 mg-325 mg 1 tabs Route: PO; ha1 23:40 Follow up: Response: No adverse reaction; Pain is decreased; RASS: Alert and Calm (0) ha1 11/06 00:19 Drug: Ativan (LORazepam) 2 mg Route: IM; Site: right ventrogluteal; ha1 00:50 Follow up: Response: No adverse reaction ha1 Medication: 11/05 23:04 VIS not applicable for this client. vc1 Outcome: 23:42 Discharge ordered by . ivonne 11/06 02:00 Condition: stable ha1 02:00 Discharged to home via wheelchair, with family. ha1 02:00 Discharge instructions given to patient, family, Instructed on discharge instructions, follow up and referral plans. medication usage, Demonstrated understanding of instructions, follow-up care, medications, Prescriptions given X 2. 02:07 Patient left the ED. ha1 Signatures: Dispatcher [employer] EDMS Sharyn Gray, CHOCOLATE PRODUCTION MACHINE OPERATOR-C CHOCOLATE PRODUCTION MACHINE OPERATOR-Csnw Germania Tse2 Bhakti Bucio RN RN vc1 Anabella Ramirez RN RN ha1 Corrections: (The following items were deleted from the chart) 02:10 02:09 Response: No adverse reaction ha1 ha1
--- NOTE | 2022-11-05 23:42 | EDPHYS ---
Physician Documentation [facility] Name: Ta Quezada Age: 42 yrs Sex: Male : 1980 Arrival Date: 11/05/2022 Time: 22:42 Bed 20 Private MD: Bruno Schultz HPI: 11/05 23:11 This 42 yrs old Male presents to ER via Wheelchair with complaints of Foot Injury. snw 23:11 The patient presents with decreased range of motion, pain, spasm, swelling. The snw complaints affect the medial aspect of right foot and dorsum of right foot. Context: The problem was sustained at home, resulted from an unknown cause, the patient can partially bear weight. Onset: The symptoms/episode began/occurred acutely. Associated signs and symptoms: Pertinent positives: swelling. Severity of symptoms: At their worst the symptoms were moderate, severe. It is unknown whether or not the patient has had similar symptoms in the past. The patient has not recently seen a physician. Historical: - Allergies: 22:58 none; vc1 - Home Meds: 22:58 Depakote 125 mg Oral TbEC [Active]; Keppra 1,000 mg Oral tab [Active]; Lasix Oral vc1 [Active]; pregabalin Oral [Active]; pantoprazole oral [Active]; - PMHx: 22:58 Depression; GERD; Hypertension; Kidney stones; Seizure; TIA; neuropathy; vc1 - PSHx: 22:58 Cholecystectomy; vc1 - Immunization history:: Client reports having NOT received the Covid vaccine. - Social history:: Smoking status: Patient reports the use of cigarette tobacco products, 1 a day. ROS: 23:11 Constitutional: Negative for fever, chills, and weight loss, Eyes: Negative for injury, snw pain, redness, and discharge, ENT: Negative for injury, pain, and discharge, Neck: Negative for injury, pain, and swelling, Cardiovascular: Negative for chest pain, palpitations, and edema, Respiratory: Negative for shortness of breath, cough, wheezing, and pleuritic chest pain, Abdomen/GI: Negative for abdominal pain, nausea, vomiting, diarrhea, and constipation, Back: Negative for injury and pain, : Negative for injury, bleeding, discharge, and swelling, Skin: Negative for injury, rash, and discoloration, Neuro: Negative for headache, weakness, numbness, tingling, and seizure. 23:11 MS/extremity: Positive for injury or acute deformity, decreased range of motion, pain, swelling, of the instep of right foot, medial aspect of right toes, right first toe and Right first toenail. Exam: 23:10 Constitutional: This is a well developed, well nourished patient who is awake, alert, snw and in no acute distress. Head/Face: Normocephalic, atraumatic. Eyes: Pupils equal round and reactive to light, extra-ocular motions intact. Lids and lashes normal. Conjunctiva and sclera are non-icteric and not injected. Cornea within normal limits. Periorbital areas with no swelling, redness, or edema. ENT: Nares patent. No nasal discharge, no septal abnormalities noted. Tympanic membranes are normal and external auditory canals are clear. Oropharynx with no redness, swelling, or masses, exudates, or evidence of obstruction, uvula midline. Mucous membranes moist. Neck: Trachea midline, no thyromegaly or masses palpated, and no cervical lymphadenopathy. Supple, full range of motion without nuchal rigidity, or vertebral point tenderness. No Meningismus. Chest/axilla: Normal chest wall appearance and motion. Nontender with no deformity. No lesions are appreciated. Cardiovascular: Regular rate and rhythm with a normal S1 and S2. No gallops, murmurs, or rubs. Normal PMI, no JVD. No pulse deficits. Respiratory: Lungs have equal breath sounds bilaterally, clear to auscultation and percussion. No rales, rhonchi or wheezes noted. No increased work of breathing, no retractions or nasal flaring. Abdomen/GI: Soft, non-tender, with normal bowel sounds. No distension or tympany. No guarding or rebound. No evidence of tenderness throughout. Back: No spinal tenderness. No costovertebral tenderness. Full range of motion. Skin: Warm, dry with normal turgor. Normal color with no rashes, no lesions, and no evidence of cellulitis. Neuro: Awake and alert, GCS 15, oriented to person, place, time, and situation. Cranial nerves II-XII grossly intact. Motor strength 5/5 in all extremities. Sensory grossly intact. Cerebellar exam normal. Normal gait. 23:10 Musculoskeletal/extremity: Extremities: grossly normal except: noted in the right great toe to arch of right foot with radiation to knee: contusion, decreased ROM, swelling, tenderness. Vital Signs: 22:46 BP 138 / 85; Pulse 88; Resp 20 S; Pulse Ox 98% on R/A; ha1 22:54 BP 139 / 85; Pulse 88; Resp 22; Temp 98.5; Pulse Ox 98% ; Weight 120.2 kg; Height 5 ft. vc1 11 in. (180.34 cm); Pain 7/10; 23:40 BP 129 / 67; Pulse 75; Resp 20 S; Pulse Ox 95% on R/A; ha1 11/06 00:16 BP 155 / 81; Pulse 90; Resp 20 S; Pulse Ox 94% on R/A; ha1 01:10 BP 129 / 81; Pulse 64; Resp 17 S; Pulse Ox 96% on R/A; ha1 11/05 22:54 Body Mass Index 36.96 (120.20 kg, 180.34 cm) vc1 MDM: 11/05 22:49 Patient medically screened. snw 23:33 Differential diagnosis: dislocation, closed fracture, contusion, abrasion. Data snw reviewed: vital signs, nurses notes. Independent interpretation of the following test(s) in the Emergency Department X-Ray: My interpretation is right foot - no fx noted. feel dx most likely gout. 23:35 Counseling: I had a detailed discussion with the patient and/or guardian regarding: the snw historical points, exam findings, and any diagnostic results supporting the discharge/admit diagnosis, the presence of at least one elevated blood pressure reading (>120/80) during this emergency department visit, radiology results, the need for outpatient follow up, to return to the emergency department if symptoms worsen or persist or if there are any questions or concerns that arise at home. Special discussion: I have referred the patient to see his PCP for further evaluation of high blood pressure. Based on the history and exam findings, there is no indication for further emergent testing or inpatient evaluation. I discussed with the patient/guardian the need to see the orthopedic surgeon for further evaluation of the symptoms. I discussed with the patient/guardian the need to see the primary care provider for further evaluation of the symptoms. 11/05 22:56 Order name: Foot Right 3 View XRAY snw 11/05 23:26 Order name: Walking boot; Complete Time: 02:04 snw 11/06 00:17 Order name: Seizure Precautions; Complete Time: 00:18 snw Administered Medications: 23:15 Drug: Colcrys (colchicine) 1.2 mg Route: PO; ha1 23:40 Follow up: Response: No adverse reaction ha1 23:15 Drug: HYDROcodone-acetaminophen 5 mg-325 mg 1 tabs Route: PO; ha1 23:40 Follow up: Response: No adverse reaction; Pain is decreased; RASS: Alert and Calm (0) ha1 11/06 00:19 Drug: Ativan (LORazepam) 2 mg Route: IM; Site: right ventrogluteal; ha1 00:50 Follow up: Response: No adverse reaction ha1 Disposition Summary: 11/05/22 23:42 Discharge Ordered Location: Home snw Condition: Stable snw Diagnosis - Gout, unspecified snw Followup: snw - With: Emergency Department - When: As needed - Reason: Worsening of condition Followup: snw - With: Private Physician - When: 5 - 6 days - Reason: Recheck today's complaints, Continuance of care, Re-evaluation by your physician Discharge Instructions: - Discharge Summary Sheet snw - Gout snw - Low-Purine Eating Plan snw Forms: - Medication Reconciliation Form snw - Thank You Letter snw - Antibiotic Education snw - Prescription Opioid Use snw Prescriptions: - Mobic 7.5 mg Oral Tablet - take 1 tablet by ORAL route once daily take with food; 20 tablet; Refills: 0, snw Product Selection Permitted - Tylenol-Codeine #3 300 mg-30 mg Oral - take 2 tablet by ORAL route 1-3 times daily; 18 tablet; Refills: 0, Product snw Selection Permitted Signatures: Dispatcher [employer] Sharyn Crowder FNP-C PEARL RESTORER-Csnw Bhakti Bucio, RN RN vc1 Anabella Ramirez, RN RN ha1
[2022-11-06] MEDS ORDERED: LORazepam 2 MG/ML VIAL ONE (00:20)
[2022-11-06 02:37] VITALS: TEMP 98.5
[2022-11-06 02:39] VITALS: BP 155/81; O2SAT 94
--- NOTE | 2022-11-06 12:25 | RAD REPORT ---
EXAM DESCRIPTION: RAD - Foot Right 3 View - 11/05/2022 11:45 pm CLINICAL HISTORY: 42 years Male PAIN TECHNIQUE: Two views of the right foot. COMPARISON: No prior exams provided for comparison. FINDINGS: There is no acute right foot fracture, dislocation, or evidence of avascular necrosis. Vis ualized joint spaces are preserved. No foreign body or aggressive osseous lesion. IMPRESSION: No acute findings the right foot. Electronically signed by: Nory Ball MD 11/05/2022 11:57 PM GROUNDS CREW SUPERVISOR Due to temporary technical issues with the PACS/Fluency reporting system, reports are being signed by the in house radiologists without review as a courtesy to insure prompt reporting. The interpreting radiologist is fully responsible for the content of the report.
== END 2022-11-06 02:07 | disposition home or self-care (01) ==
LOC: ER 22:39
DX: M10.9 Gout, unspecified (principal); I10 Essential (primary) hypertension; Z72.0 Tobacco use
CPT/HCPCS: 96372; 99283

== ENCOUNTER 2022-12-11 00:28 | Emergency (ER) | payer OTHER ==
--- OUTSIDE RECORDS SUMMARY | 2022-12-11 00:35 | XMS REPORT | Continuity of Care Document ---
:1980 Author Organization [facility] t Address [address] [place] [place] [address] Care Team Providers Name Role Phone DEISY AGEE JR Primary Care Physician Unavailable VIRGINIA LEWIS Attending Clinician Unavailable JUAQUIN CLARKE Attending Clinician Unavailable Candice Justin MD Attending Clinician CANDICE JUSTIN Attending Clinician Unavailable Fortino GUAMAN, Hayes Hoover Attending Clinician [phone] Hanane Baker MD Attending Clinician Simba Dubois MD Attending Clinician Patrizia GUAMAN, Fausto Myers Attending Clinician [phone] SIMBA DUBOIS Attending Clinician Unavailable SUSANNE ROLDAN Attending Clinician Unavailable Susanne Roldan DO Attending Clinician Doctor Unassigned, [place] Attending Clinician Unavailable Shubham DOMINGUEZ, Barbara Delgadillo [...] Effective Date Expiration Date Digna DOLL FROM [id number] 2021 [facility] 00:00:00 Problems Condition Condition Condition Status Onset Resolution Last Treating Co mments Source Name Details Category Date Date Treatment Clinician Date Impaired Impaired Disease [facility] and ADLs and ADLs 00:00: Medica l 00 Center TIA TIA Disease Active [facility] (transient (transient 4-05 Venita kes ischemic ischemic 00:00: Medica l attack) attack) 00 [facility] HTN HTN Disease Active [facility] (hypertens (hypertens 4-05 Venita kes ion) ion) 00:00: Medical 00 [facility] Substance Substance Disease Active [facility] abuse abuse 4-05 [facility] 00:[facility]: Medical 00 Center Status Status Disease Active [facility] epilepticu epilepticu 4-05 Venita kes s s 00:00: Medical 00 [facility] Depression Depression Disease Active [facility] 00:00: Medical 00 [facility] GERD GERD Disease Active [facility] (gastroeso (gastroeso 4-05 Venita kes phageal phageal 00:00: Medical reflux reflux 00 Center disease) disease) Seizure Seizure Disease Active [facility] 4[facility]04 [facility] 00:00: Medical 00 [facility] AMS AMS Disease Active 2020-10 Univers (altered (altered 1-05 ity of mental mental 00:00: [place] status) status) Medical Branch Obesity Obesity Disease Active 2020-10 Univers (BMI (BMI 1-05 ity of 30-39.9) 30-39.9) 00:00: [place] [id number] Medical Branch Acute Acute Disease Active 2020-10 Overview: Charla s blood loss blood loss 10-22 Formattin ity of anemia anemia 00:00: g of this [place] [id number] note Medical might be Branch different from the original. Added automatic ally from request for surgery [id number] [place] Disease Active C [facility] [...] Active Univers ALLERGIE Class ity of S [facility] NO KNOWN Allergy Active [facility] ALLERGIE S Social History Social Habit Start Date Stop Date Quantity Comments Source Exposure to Not sure [facility] SARS-CoV-2 (event) [facility] History of tobacco Cigarette Smoker University of use [facility] History SDOH [facility] Alcohol Std Drinks Medica l Center History SDOH [facility] Alcohol Binge Medical Roddy [facility] History SDOH [facility] Alcohol Comment Medical C enter History SDOH [facility] Transport Non-Med Medical Center History SDOH [facility] Housing Places Medical Ce nter Lived History SDMA 2022-01-22 2022-01-[address] [facility] Housing Unable to 00:00:00 00:00:00 Medical Center Pay History SDOH 2022-01-21 2022-01-[address] [facility] Transport Med 00:00:00 00:00:[address] History SDOH 2022-01-21 2022-01-[address] [facility] Housing Homeless 00:00:00 00:00:00 Medical Center Last Year Tobacco Comment 2021-08-22 2021-08-22 stopped smoking Univ ersity of 00:00:00 00:00:00 last week [facility] Alcohol intake 2020-11-11 2020-11-11 Ex-drinker [...] Source Current every day smoker 2020-08-06 00:00:00 [facility] Medications Ordered Filled Start Stop [...] tablet 18 :00 times Center daily. gabapentin 2021- No 600mg Q.5D Take 600 C [...] 18 :00 times Center tablet daily. fluoxetine 2021-0 2021- No 10mg QD Take 10 mg [...] 18 :00 times Center tablet daily. fluoxetine 2021- No 10mg QD Take 10 [...] 18 :00 times Center tablet daily. fluoxetine 2021- No 10mg QD Take 10 [...] 18 :00 times Center tablet daily. fluoxetine 2021- No 10mg QD Take 10 [...] for 30 days. gabapentin 2021- No 300mg Q.[id number] Take [address] [facility] (NEURONTIN) 01-26 [id number] capsule [facility] 300 MG 00:00: 23:59 3D [...] for 30 days. divalproex 2021- No 750mg Q.[id number] Take [address] [facility] (DEPAKOTE) 01-26 [id number] tablets [facility] 250 MG EC 00:00: 23:59 [...] for 30 days. gabapentin 2021- No 300mg Q.[id number] Take [address] [address] (NEURONTIN) 01-26 [id number] capsule [facility] 300 MG 00:00: 23:59 3D [...] for 30 days. divalproex 2021- No 750mg Q.[id number] Take [address] [address] (DEPAKOTE) 01-26 [id number] tablets [facility] 250 MG EC 00:00: 23:59 [...] for 30 days. gabapentin 2021- No 300mg Q.[id number] Take [address] (NEURONTIN) 01-26 [id number] capsule [facility] 300 MG 00:00: 23:59 3D [...] for 30 days. divalproex 2021- No 750mg Q.[id number] Take [address] (DEPAKOTE) 01-26 [id number] tablets [facility] 250 MG EC 00:00: 23:59 [...] Center per tablet for 30 days. levETIRAcet 2021-2021- No 1000mg Take [address] (KEPPRA) 01-26 tablet [facility] 1000 MG 00:00: 23:59 (1,000 mg Medi tapan tablet 00 :00 total) by Center mouth every 12 (twelve) hours for 30 days. gabapentin 2021- No 300mg Q.[id number] Take [address] [facility] [facility] (NEURONTIN) 01-26 [id number] capsule [facility] 300 MG 00:00: 23:59 3D [...] for 30 days. divalproex 2021- No 750mg Q.[id number] Take [address] [address] (DEPAKOTE) 01-26 [id number] tablets [facility] 250 MG EC 00:00: 23:59 [...] for 30 days. gabapentin 2021-2021- No 300mg Q.[id number] Take [address] [address] (NEURONTIN) 01-26 [id number] capsule [facility] 300 MG 00:00: 23:59 3D [...] for 30 days. divalproex 2021-2021- No 750mg Q.[id number] Take [address] [facility] (DEPAKOTE) 01-26 [id number] tablets [facility]ukes 250 MG EC 00:00: 23:59 [...] Center per tablet for 30 days. levETIRAcet 2021-2021- No 1000mg Take [address] (KEPPRA) 01-26 tablet [facility] 1000 MG 00:00: 23:59 (1,000 mg Medi tapan tablet 00 :00 total) by Center mouth every 12 (twelve) hours for 30 days. gabapentin 2022021- No 300mg Q.[id number] Take [address] [address] (NEURONTIN) 01-26 [id number] capsule [facility] 300 MG 00:00: 23:59 3D [...] for 30 days. divalproex 2021- No 750mg Q.[id number] Take [address] (DEPAKOTE) 01-26 [id number] tablets [facility] 250 MG EC 00:00: 23:59 [...] ER 14 :00 nightly. Center capsule phenytoin 2021- No 300mg QD Take [address] extended 4-08 04-08 mg by Lukes (DILANTIN) 08:05: 00:00 mouth Medic al 300 MG ER 14 :00 nightly. Center capsule phenytoin 2022-0 2022- No 300mg QD Take [address] extended 4-08 04-08 mg by [facility]ukes (DILANTIN) 08:05: 00:00 mouth Medic al 300 MG ER 14 :00 nightly. Center capsule phenytoin 2022-0 2022- No 300mg QD Take [address] extended 4-08 04-08 mg by [facility]ukes (DILANTIN) 08:05: 00:00 mouth Medic al 300 MG ER 14 :00 nightly. Center capsule phenytoin 2022-0 2022- No 300mg QD Take [address] extended 4-08 04-08 mg by [facility]ukes (DILANTIN) 08:05: 00:00 mouth Medic al 300 MG ER 14 :00 nightly. Center capsule phenytoin 2022-0 2022- No 300mg QD Take [address] extended 4-08 04-08 mg by [facility] (DILANTIN) 08:05: 00:00 mouth Medic al 300 MG ER 14 :00 nightly. Center capsule omeprazole 2022-0 2022- No 40mg Q.5D Take [address] (PriLOSEC) 4-05 04-05 by mouth 2 Venita kes 40 MG 17:21: 00:00 (two) Medical capsule 59 :00 times Center daily. aspirin 81 2-0 2022- No 81mg QD Take [address] MG chewable 4-05 04-05 by mouth Luis es tablet 17:21: 00:00 daily. Medical 59 :00 Wiley omeprazole 2-0 2022- No 40mg Q.5D Take [address] (PriLOSEC) 4-05 04-05 by mouth 2 Venita kes 40 MG 17:21: 00:00 (two) Medical capsule 59 :00 times Center daily. aspirin 81 2-0 2022- No 81mg QD Take [address] MG chewable 4-05 04-05 by mouth Luis es tablet 17:21: 00:00 daily. Medical 59 :00 Center omeprazole 2022-0 2022- No 40mg Q.5D Take [address] (PriLOSEC) 4-05 04-05 by mouth 2 Venita kes 40 MG 17:21: 00:00 (two) Medical capsule 59 :00 times Center daily. aspirin 81 2022-0 2022- No 81mg QD Take [address] MG chewable 4-05 04-05 by mouth Luis es tablet 17:21: 00:00 daily. Medical 59 :00 [facility] omeprazole 2021- No 40mg Q.5D Take [address] (PriLOSEC) 4-05 04-05 by mouth 2 Venita kes 40 MG 17:21: 00:00 (two) Medical capsule 59 :00 times Center daily. aspirin 81 2021- No 81mg QD Take [address] MG chewable 4-05 04-05 by mouth Luis es tablet 17:21: 00:00 daily. Medical 59 :00 Wiley omeprazole 2021- No 40mg Q.5D Take [address] (PriLOSEC) 4-05 04-05 by mouth 2 Venita kes 40 MG 17:21: 00:00 (two) Medical capsule 59 :00 times Center daily. aspirin 81 2021- No 81mg QD Take [address] MG chewable 4-05 04-05 by mouth Luis es tablet 17:21: 00:00 daily. Medical 59 :00 Wiley omeprazole 2021- No 40mg Q.5D Take [address] (PriLOSEC) 4-05 04-05 by mouth 2 Venita kes 40 MG 17:21: 00:00 (two) Medical capsule 59 :00 times Center daily. aspirin 81 2021- No 81mg QD Take [address] MG chewable 4-05 04-05 by mouth Luis es tablet 17:21: 00:00 daily. Medical 59 :00 Wiley divalproex 2020-10 No 250mg 250 mg, Un oz ER 11-16 11-30 Oral, ity of (DEPAKOTE 00:45: 01:00 ONCE, 1 [place] 24 hr 00 :00 dose, On Medica l tablet 250 Mon Branch mg 09/15/21 at 1845, Routine NaCl 0.9% 2020-10 No 1000mL at 999 Uni vers (NS) bolus - 11-30 mL/hr, ity of infusion 22:45: 00:00 1,000 mL, Diaz as 1,000 mL 00 :00 IV Medical Infusion, Branch ONCE, 1 dose, On 09/15/21 at 1645, ELEONORA lidocaine 2020-10 Yes [id number] 10mL Take 10 mL Univers 2% viscous 1-09 by mouth ity o f 2 % 00:00: every 6 [place] solution 00 (six) Medical hours as Branch needed for Oral mucosal pain. sucralfate 2020-10 Yes [id number] 1000mg Take 10 mL Univers 100 mg/mL 1-09 by mouth 4 ity of suspension 00:00: (four) [place] 00 times Medical daily. Branch pantoprazol 2020-10 Yes [id number] 40mg Take 1 Univers e 40 mg EC 1-09 tablet by ity of tablet 00:00: mouth 2 [place] 00 (two) Medical times Branch daily. lidocaine 2020-10 Yes [id number] 10mL Take 10 mL Univers 2% viscous 1-09 by mouth ity o f 2 % 00:00: every 6 [place] solution 00 (six) Medical hours as Branch needed for Oral mucosal pain. sucralfate 2020-10 Yes [id number] 1000mg Take 10 mL Univers 100 mg/mL 1-09 by mouth 4 ity of suspension 00:00: (four) [place] 00 times Medical daily. Branch pantoprazol 2020-10 Yes [id number] 40mg Take 1 Univers e 40 mg EC 1-09 tablet by ity of tablet 00:00: mouth 2 [place] 00 (two) Medical times Branch daily. lidocaine 2020-10 Yes [id number] 10mL Take 10 mL Univers 2% viscous 1-09 by mouth ity o f 2 % 00:00: every 6 [place] solution 00 (six) Medical hours as Branch needed for Oral mucosal pain. sucralfate 2020-10 Yes [id number] 1000mg Take 10 mL Univers 100 mg/mL 1-09 by mouth 4 ity of suspension 00:00: (four) [place] 00 times Medical daily. Branch pantoprazol 2020-10 Yes [id number] 40mg Take 1 Univers e 40 mg EC 1-09 tablet by ity of tablet 00:00: mouth 2 [place] 00 (two) Medical times Branch daily. levETIRAcet 2020-10 Yes Univer s am 500 mg 1-03 ity of tablet 00:00: [place] 00 Medical Branch divalproex 2020-10 Yes Univers 500 mg EC 1-03 ity of tablet 00:00: [facility] levETIRAcet 2020-10 Yes Univer s am 500 mg -03 ity of tablet 00:00: [facility] Branch divalproex 2020-10 Yes Univers 500 mg EC 03 ity of tablet 00:00: [facility] levETIRAcet 2020-10 Yes Univer s am 500 mg 10-20 ity of tablet 00:00: [facility] Branch divalproex 2020-10 Yes Univers 500 mg EC 10-20 ity of tablet 00:00: [facility] FLUoxetine 2020-10 Yes 10mg Take 10 mg U nivers 10 mg 0-22 by mouth ity of tablet 00:00: daily. [place] [facility] FLUoxetine 2020-10 Yes 10mg Take 10 mg U nivers 10 mg 0-22 by mouth ity of tablet 00:00: daily. [place] [facility] FLUoxetine 2020-10 Yes 10mg Take 10 mg U nivers 10 mg 0-22 by mouth ity of tablet 00:00: daily. [facility] gabapentin 2020-10 Yes 300mg Take 300 Un oz 300 mg 0-21 mg by ity of capsule 00:00: mouth 3 ([facility]) Medical times Branch daily. baclofen 2020-10 Yes TAKE ONE Un oz mg [...] 10 05-26 ity of mg tablet 00:00: Medical Branch metoclopram Yes Univer s steven HCl 10 8- ity of mg tablet 00:00: Medical Branch metoclopram 2020-0 Yes Univer s steven HCl 10 8-09 ity of mg tablet 00:00: Medical Branch ondansetron 2020- Yes [id number] 4mg Take 1 Univers (ZOFRAN 5-30 tablet by ity of ODT) 4 mg 00:00: mouth [place] disintegrat 00 every 8 Medic al ing tablet (eight) Branch hours as needed for Nausea and Vomiting (N/V). ondansetron Yes [id number] 4mg Take 1 Univers (ZOFRAN 5-30 tablet by ity of ODT) 4 mg 00:00: mouth [place] disintegrat 00 every 8 Medic al ing tablet (eight) Branch hours as needed for Nausea and Vomiting (N/V). ondansetron Yes [id number] 4mg Take 1 Univers (ZOFRAN 5-30 tablet [...] 2021-09-16 01:00:00 116 mm[Hg] Univer [facility] Diastolic blood 2021-09-16 01:00:00 53 mm[Hg] Unive rsity of [facility] Heart rate 2021-09-16 01:00:00 65 /min [facility] Respiratory rate 2021-09-16 01:00:00 14 /min [facility] Oxygen saturation in 2021-09-16 01:00:00 99 /min [facility] Arterial blood by [facility] Pulse oximetry Branch Body temperature 2021-09-15 21:38:00 36.06 Abeba [facility] Body height 2021-09-15 21:38:00 175.3 cm [facility] Body weight 2021-09-15 21:38:00 86.637 kg [facility] BMI 2021-09-15 21:38:00 28.21 kg/m2 [facility] HEIGHT 2020-11-07 15:01:00 180.3 cm WEIGHT 2020-11-07 15:01:00 81.647 kg Body weight 2022-01-29 05:19:00 107.23 kg [facility] BMI 2022-01-29 05:19:00 32.99 kg/m2 [facility] Systolic blood 2022-01-29 05:12:00 104 mm[Hg] [facility] Diastolic blood 2022-01-29 05:12:00 56 mm[Hg] [facility] S [facility] Heart rate 2022-01-29 05:12:00 60 /min [facility] Body temperature 2022-01-29 05:12:00 35.61 Abeba [facility] Respiratory rate 2022-01-29 05:12:00 17 /min [facility] Oxygen saturation in 2022-01-29 05:12:00 95 /min [facility] Arterial blood by Medical Ce nter Pulse oximetry Body height 2022-01-25 10:00:00 180.3 cm [facility] Procedures Procedure Date / Time Performing Clinician Source Performed BASIC METABOLIC PANEL 2022-01-26 04:37:00 Candice Justin [facility] CBC W/PLT COUNT & AUTO 2022-01-26 04:37:00 Candice Justin [facility] DIFFERENTIAL Wiley CBC W/PLT COUNT & AUTO 2022-01-26 04:37:00 Candice Justin [facility] DIFFERENTIAL Wiley COMPREHENSIVE METABOLIC 2022-01-24 05:29:00 Candice Justin [facility] PANEL Center CBC W/PLT COUNT & AUTO 2022-01-24 05:29:00 Candice Justin [facility] DIFFERENTIAL Wiley VALPROIC ACID LEVEL, 2022-01-24 05:29:00 Sebastian Mendez [facility] TOTAL Center CBC W/PLT COUNT & AUTO 2022-01-24 05:29:00 Candice Justin [facility] DIFFERENTIAL Wiley CBC W/PLT COUNT & AUTO 2022-01-23 04:34:00 [facility] Leia Wiley CBC W/PLT COUNT & AUTO 2022-01-23 04:34:00 Danyell Longo [facility] DIFFERENTIAL Leia Wiley BASIC METABOLIC PANEL 2022-01-23 04:31:00 Danyell Longo [facility] Leia Wiley MAGNESIUM 2022-01-23 04:31:00 Danyell Longo [facility] Leia Wiley PHOSPHORUS 2022-01-23 04:31:00 [facility] SARS-[facility]OV2/RT-PCR ([facility] & 2022-01-22 17:41:00 Jaylen Mcnulty [facility] REF LABS) [facility] POCT-GLUCOSE METER 2022-01-22 11:48:00 Meghna [facility] XR HAND 3 VIEWS LEFT 2022-01-22 10:59:00 Meghna [facility] POCT-GLUCOSE METER 2022-01-22 07:59:00 Meghna [facility] EEG 12-26 HR CONTINUOUS 2022-01-22 06:36:00 Meghna [facility] Medical MONITORING WITH VIDEO Center POCT-GLUCOSE METER 2022-01-22 06:16:00 Meghna [facility] CBC W/PLT COUNT & AUTO 2022-01-22 06:09:00 [facility] Leia Wiley BASIC METABOLIC PANEL 2022-01-22 06:09:00 Danyell Longo [facility] Leia Center MAGNESIUM 2022-01-22 06:09:00 [facility] Center PHOSPHORUS 2022-01-22 06:09:00 [facility] Wiley CBC W/PLT COUNT & AUTO 2022-01-22 06:09:00 [facility]ia Center POCT-GLUCOSE METER 2022-01-21 23:47:00 Meghna [facility] POCT-GLUCOSE METER 2022-01-21 16:14:00 [facility] VALPROIC ACID LEVEL, 2022-01-21 14:00:00 Bonnie Duran [facility] POCT-GLUCOSE METER 2022-01-21 08:54:00 [facility] EEG 12-26 HR CONTINUOUS 2022-01-21 07:05:00 Hanane Baker [facility] MONITORING WITH VIDEO Center CBC W/PLT COUNT & AUTO 2022-01-21 05:14:00 [facility] DI[facility]ENTIAL Leia Wiley BASIC METABOLIC PANEL 2022-01-21 05:14:00 [facility] Wiley MAGNESIUM 2022-01-21 05:14:00 [facility] PHOSPHORUS 2022-01-21 05:14:00 [facility] W/[facility]T COUNT & AUTO 2022-01-21 05:14:00 Donta [facility] DIFFERENTIAL [facility] POCT-GLUCOSE METER 2022-01-20 21:55:00 [facility] 2022-01-20 16:15:00 [facility] MAGNESIUM 2022-01-20 13:10:00 [facility] 2022-01-20 13:10:00 [facility] POCT-GLUCOSE METER 2022-01-20 [facility]:00[facility] & AUTO 2022-01-20 04:52:00 Bianca Tse [facility] HIGH SENSITIVITY 2022-01-20 04:52:00 Bianca Tse [facility] I Center LACTIC ACID, VENOUS 2022-01-20 04:52:00 Bianca Tse [facility] CBC W/PLT COUNT & AUTO 2022-01-20 04:52:00 Bianca Tse [facility] DIFFERENTIAL Wiley COMPREHENSIVE METABOLIC 2022-01-20 04:51:[address] [facility] PANEL Center MAGNESIUM 2022-01-20 04:51:00 Bianca Tse [facility] PHOSPHORUS 2022-01-20 04:51:00 Bianca Tse [facility] PHENYTOIN LEVEL, TOTAL 2022-01-20 04:51:00 Bianca Tse CH, I [facility] PHENYTOIN LEVEL, TOTAL 2022-01-20 04:51:00 Bianca Tse CH, I [facility] AND FREE Center VALPROIC ACID LEVEL, 2022-01-20 04:51:00 DedrickBianca [facility] Center VITAMIN B12 AND FOLATE 2022-01-20 04:51:00 Bianca Tse [facility] TSH/FREE T4 IF INDICATED 2022-01-20 04:51:00 DedrickBianca [facility] CBC WITH DIFF 2021-09-15 22:38:00 Susanne Roldan [facility] COMP. METABOLIC PANEL 2021-09-15 21:57:00 Susanne Roldan [facility] ([id number]) [facility] VALPROIC ACID, TOTAL 2021-09-15 21:57:00 Susanne Roldan [facility] LACTIC ACID WHOLE BLOOD 2021-09-15 21:54:00 Susanne Roldan [facility] EXTERNAL PROVIDER 2021-09-09 06:01:00 Doctor Unassigned, No [facility] RECORDS Name [facility] Plan of Care Planned Activity Planned Date Details Comments Source Future Scheduled 2024-08-[address] [facility] Test 00:00:00 (procedure) [code = [facility] [id number]] Future Scheduled 2024-08-[address] [facility] Test 00:00:00 (procedure) [code = [facility] [id number]] Future Scheduled 2024-08-[address] [facility] Test 00:00:00 (procedure) [code = [facility] [id number]] Future Scheduled 2024-08-[address] [facility] Test 00:00:00 (procedure) [code = [facility] [id number]] Future Scheduled 2024-08-[address] [facility] Test 00:00:00 (procedure) [code = [facility] [id number]] Future Scheduled 2024-08-[address] [facility] Test 00:00:00 (procedure) [code = [facility] [id number]] Future Scheduled 2022-06-18 INFLUENZA VACCINE (#1) C [...] Cessation Counseling and Screening (12+)] Future Scheduled 2021-11-[address] [facility] Test 00:00:00 Counseling [facility] Medical Cente r Screening (12+) [code = Tobacco Cessation Counseling and Screening (12+)] Future Scheduled 2021-11-[address] [facility] Test 00:00:00 Counseling and Medical Cente r Screening (12+) [code = Tobacco Cessation Counseling and Screening (12+)] Future Scheduled 2021-11-[address] [...] Type Clinicians Facility Department ID 2021-08-17 Emergency [facility] [id number] Univers 22:09:39 ity [facility] 2021-07-23 Inpatient ER JOSHUA, [facility] Neurology [id number] 07:45:15 [facility] 2020-11-07 Inpatient [facility] [id number] [facility] 07:52:00 Charles NELSON 2020-07-08 Inpatient ER JOSHUA, [facility] Neurology [id number] [facility] 08:39:03 DAICO 2022-01-23 2022-01-29 [facility] [id number] 11:27:00 11:25:00 Encounter [facility] 2022-01-23 2022-01-29 Inpatient [facility] PM\\T\\R [id number] [facility]H 11:27:00 11:25:00 LEONIDES CANDICE 2022-01-23 2022-01-29 [facility] [id number] 11:27:00 11:25:00 Encounter [facility] 2022-01-19 2022-01-23 [facility] [id number] [facility] 22:47:00 10:53:00 Encounter [facility] 2022-01-19 2022-01-23 Inpatient [facility] [id number] SLE 22:47:00 10:53:00 [facility] 2022-01-19 2022-01-23 [facility] [id number] [facility] 22:47:00 10:53:00 [facility] 2022-01-23 2022-01-23 [facility] [id number] [facility] 00:[facility]00 00:00:00 [facility] 2022-01-23 2022-01-23 Travel [facility] [id number] [facility] 00:[facility]00 00:00:00 [facility] 2022-01-19 2022-01-19 Travel [facility] [id number] [facility] 00:[facility]00 00:00:00 [facility] 2022-01-19 2022-01-19 Travel [facility] [id number] [facility] 00:[facility]00 00:00:00 [facility] 2022-01-15 2022-01-15 Documentat Hanane Baker [facility] [id number] [facility] 00:[facility] 00:00:00 [facility] 2022-01-15 2022-01-15 Documentat Hanane Baker [facility] [id number] [facility] 00:[facility] 00:00:00 [facility] 2021-09-15 2021-09-15 Emergency [facility] [id number] Univers 15:37:00 20:00:00 [facility] 2021-09-15 2021-09-15 [facility] [id number] Univers 15:37:00 20:00:00 Susanne FAN [id number] ity [id number] [id number] [facility] 084 Branch 2021-09-09 2021-09-09 Orders Doctor JENNIFER [id number] Univers 00:00:00 00:00:00 Only Unassigned, PARVIN [id number] ity of [place] [facility] [id number] Diaz as [id number] [facility] 009 Branch 2021-08-28 2021-08-28 Transition RUY Jalloh [id number] Univers 00:00:00 00:00:00 of Care Barbara MCCAULEY [id number] i ty of [id number] [id number] [facility] 403 Branch 2021-08-22 2021-08-27 Inpatient X MEMEBEAUMONT [facility] [id number] Univers 14:14:00 18:00:00 [facility] 2021-08-22 2021-08-27 Hospital Jose Day 1.2.840.1 14 [id number] Univers 14:14:00 18:00:00 Encounter Abdiaziz Jaimes 350.1.13.10 [facility] 4.2.7.2.686 [place] [phone] [facility] 093 Branch 2021-08-22 2021-08-27 Inpatient X [facility] [id number] Univers 14:14:00 18:00:00 GAVIOTA ity of [facility] 2021-08-26 2021-08-26 Surgery [facility] 1.2.745.791 [id number] Univers 07:30:00 08:12:00 Kirill MARCANO 350.1.13.10 [facility] 4.2.7.2.686 [place] as BLDG [phone] [facility] 020 Branch 2021-03-16 2021-03-16 Emergency [facility] 1.2.241.845 [id number] 01:37:00 03:38:00 Dee Fan 350.1.13.10 [place] 4.2.7.2.686 [place] [phone] 084 2021-03-16 2021-03-16 Emergency [facility] 1.2.489.411 [id number] Univers 01:37:00 03:38:00 Dee Fan 350.1.13.10 ity of [place] 4.2.7.2.686 [facility] [phone] [facility] 084 Branch 2020-12-12 2020-12-12 Orders Doctor RODRIGUEZ 1.2.840.114 [id number] Univers 00:00:00 00:00:00 Only Unassigned, PARVIN 350.1.13.10 ity of [place] [facility] 4.2.7.2.686 [place] as [phone] [facility] 009 Branch 2020-12-12 2020-12-12 Orders Doctor RODRIGUEZ 1.2.840.114 [id number] 00:00:00 00:00:00 Only Unassigned, PARVIN 350.1.13.10 [place] [facility] 4.2.7.2.686 [id number] 009 2020-11-30 2020-11-30 [facility] 1.2.840.114 [id number] Univers 00:00:00 00:00:00 Boo Fan 350.1.13.10 [place] [phone] [address] 2020-11-30 2020-11-30 [facility] 1.2.840.114 [id number] 00:00:00 00:00:00 Boo Fan 350.1.13.10 [place] 4.2.7.2.686 Professio [phone] [address] 2020-10-31 2020-10-[address] [facility] 1.2.840.114 [id number] Univers 00:00:00 00:00:00 Boo Fan 350.1.13.10 [place] [phone] [address] 2020-10-31 2020-10-[address] [facility] 1.2.840.114 [id number] 00:00:00 00:00:00 [place] 350.1.13.10 [place] 4.2.7.2.686 Professio [phone] [address] 2020-09-06 2020-09-06 Orders Doctor RODRIGUEZ 1.2.840.114 [id number] Univers 00:00:00 00:00:00 Only Unassigned, PARVIN 350.1.13.10 ity of [place] [facility] 4.2.7.2.686 [place] as [phone] [address] 2020-09-06 2020-09-06 Orders Doctor RODRIGUEZ 1.2.840.114 [id number] 00:00:00 00:00:00 Only Unassigned, PARVIN 350.1.13.10 [place] [facility] 4.2.7.2.686 [id number] 009 2020-08-18 2020-08-18 Orders Doctor JENNIFER Mata.2.840.114 [id number] Univers 00:00:00 00:00:00 Only Unassigned, PARVIN 350.1.13.10 ity of [place] [facility]OSPITAL 4.2.7.2.686 Diaz as [phone] [address] 2020-08-18 2020-08-18 Orders Doctor JENNIFER 1.2.840.114 [id number] 00:00:00 00:00:00 Only Unassigned, PARVIN 350.1.13.10 [place] [facility] 4.2.7.2.686 [phone] [facility] 2020-08-06 2020-08-14 [facility] 1.2.840.114 [id number] [facility] 08:52:45 13:22:47 Visit Boo Fan 350.1.13.10 [place]y of [place] [phone] Pa dical nal [address] [place] [address] 2020-08-06 2020-08-14 [facility] 1.2.840.114 [id number] [facility] 08:52:45 13:22:47 Visit Boo Fan 350.1.13.10 [place] 4.2.7.2.686 Professio [phone] [address] 2020-08-13 2020-08-13 [facility] 1.2.840.114 [id number] Univers 00:00:00 00:00:00 Boo Nikhil Fan 350.1.13.10 [place] [phone] Pa dic[address] 2020-08-06 2020-08-06 Outpatient R BOO [facility] [id number] Univers 08:40:00 08:40:00 BOO [facility] 2020-08-06 2020-08-06 Orders Doctor JENNIFER 1.2.840.114 [id number] Univers 00:00:00 00:00:00 Only Unassigned, PARVIN 350.1.13.10 ity of [place] [facility]OS[facility] 4.2.7.2.686 Diaz as [phone] [address] Results Test Description Test Time Test [...] NOT 1092) ACCURATE CRE ATININE CLEARANCE IN ME EDICTING GLOMERULAR FILT RATION RATE. ESTIMATED GFR IS NOT APPLICABLE FOR DIALYSIS PATIENTS. CBC W/PLT COUNT & AUTO [id number] 05:30:33 Test Item Value Reference Range Interpretation [...] (test code = 2801) VALPROIC ACID LEVEL, [id number] 09:06:07 Test Item Value Reference Range Interpretation Comments VALPROIC ACID TOTAL (BEAKER) (test 48 ug/mL 50-100 L code = 924) Therapeutic range for some clinical conditions may be >100 ug/mLOperator ID - JAYLIN OMPREHENSIVE METABOLIC [id number] 06:29:58 Test Item Value Reference Range Interpretation [...] PATIEN TS. CBC W/PLT COUNT & AUTO [id number] 06:03:49 Test Item Value Reference Range Interpretation [...] (BEAKER) (test code = 2801) BASIC METABOLIC [id number] 05:29:09 Test Item Value Reference Range Interpretation [...] S NOT APPLICABLE FOR DIALYSIS PATIEN TS. Trading Analyst ID - ISAURA [id number] 05:29:09 Test Item Value Reference Range Interpretation Comments MAGNESIUM (BEAKER) (test code = 1.8 mg/dL 1.6-2.6 627) Trading Analyst ID - ISAURA [id number] 05:29:09 Test Item Value Reference Range Interpretation Comments PHOSPHORUS (BEAKER) (test code = 3.7 mg/dL 2.3-4.7 604) Trading Analyst ID - ISAURA LCBC W/PLT COUNT & AUTO [id number] 05:02:50 Test Item Value Reference Range Interpretation [...] Comments SARS-COV2/RT-PCR (test Negative Negative code = 95379-8) TUCKER (test code = TUCKER) Negative result [...] the Act. Testing was performed using the OneTwoSee SARS-CoV-2 assay. Fact Sheet for Healthcare Providers:https://www.bri ley.riley/sis/RT SARS-CoV-2 HCP Fact Sheet 51-820421.pdf Fact Sheet for Healthcare Patients:https://wwwguy stroud/sis/RT SARS-CoV-2 Patient Fact Sheet EN 51-590144H7.pdf Lab Interpretation Normal (test code = 86995-5) [facility]23 01:04:16 Test Item Value Reference Range Interpretation Comments SARS-COV2/RT-PCR (test Negative Negative code = 25299-3) TUCKER (test code = TUCKER) Negative result [...] Riley SARS-CoV-2 assay. Fact Sheet for Healthcare Providers:https://wwwantonio rice/sis/RT SARS-CoV-2 HCP Fact Sheet 51-582868.pdf Fact Sheet for Healthcare Patients:https://www.beto stroud/sis/RT SARS-CoV-2 Patient Fact Sheet EN 51-682019O8.pdf Lab Interpretation Normal (test code = 84518-9) [facility]2022-01-23 01:04:16 Test Item Value Reference Range Interpretation Comments SARS-COV2/RT-PCR (test Negative Negative code = 69391-2) TUCKER (test code = TUCKER) Negative result [...] the Act. Testing was performed using the OneTwoSee SARS-CoV-2 assay. Fact Sheet for Healthcare Providers:https://www.bri rice/sis/RT SARS-CoV-2 HCP Fact Sheet 51-919846.pdf Fact Sheet for Healthcare Patients:https://www.beto jayriley/sis/RT SARS-CoV-2 Patient Fact Sheet EN 51-687894T8.pdf Lab Interpretation Normal (test code = 44617-1) [facility]2022-01-23 01:04:16 Test Item Value Reference Range Interpretation Comments SARS-COV2/RT-PCR (test Negative Negative code = 95339-2) TUCKER (test code = TUCKER) Negative result [...] Healthcare Providers:https://www.bri rice/sis/RT SARS-CoV-2 HCP Fact Sheet 51-408552.pdf Fact Sheet for Healthcare Patients:https://www.Flyezee.com/sis/RT SARS-CoV-2 Patient Fact Sheet EN 51-461292M0.pdf Lab Interpretation Normal (test code = 64689-8) [facility]2022-01-23 01:04:16 Test Item Value Reference Range Interpretation Comments SARS-COV2/RT-PCR (test Negative Negative code = 61994-7) TUCKER (test code = TUCKER) Negative result [...] the Act. Testing was performed using the OneTwoSee SARS-CoV-2 assay. Fact Sheet for Healthcare Providers:https://www.bri rice/sis/RT SARS-CoV-2 HCP Fact Sheet 51-192340.pdf Fact Sheet for Healthcare Patients:https://www.Flyezee.com/sis/RT SARS-CoV-2 Patient Fact Sheet EN 51-854850I4.pdf Lab Interpretation Normal (test code = 87892-0) [facility]2022-01-23 01:04:16 Test Item Value Reference Range Interpretation Comments SARS-COV2/RT-PCR (test Negative Negative code = 05061-1) TUCKER (test code = TUCKER) Negative result [...] Riley SARS-CoV-2 assay. Fact Sheet for Healthcare Providers:https://wwwantonio rice/sis/RT SARS-CoV-2 HCP Fact Sheet 51-969045.pdf Fact Sheet for Healthcare Patients:https://www.beto stroud/sis/RT SARS-CoV-2 Patient Fact Sheet EN 51-945390V3.pdf Lab Interpretation Normal (test code = 61151-2) [facility])2022-01-23 01:04:16 Test Item Value Reference Range Interpretation Comments SARS-COV2/RT-PCR (test code = Negative Negative 4428091) Negative result for this test determines that [...] 564(g) of the Act.Testing was performed using t nancy OneTwoSee SARS-CoV-2 assay.Fact Sheet for Healthcare Providers:https://www.Plovgh.riley/sis/RT SARS-CoV-2 HCP Fact Sheet 51- 919330.pdfFact Sheet for Healthcare Patients:https://www.Plovgh.riley/sis/RT SARS-CoV-2 Patient Fact Sheet EN 51-770388J6.pdfPOC-Glucose lpiiv4307-75-39 12:00:30 Test Item Value Reference Range Interpretation Comments POC-Glucose Meter (test 111 mg/dL 70-110 H : TE STED AT [facility] code = 1538) [address] [place] [address], [facility] 30: Trading Analyst/Techni melvin ID = [id number] for AKINSONU, BEATRIZ Lab Interpretation (test Abnormal code = 19754-7) [facility]-Glucose [id number] 12:00:30 Test Item Value Reference Range Interpretation Comments POC-Glucose Meter (test 111 mg/dL 70-110 H : TE STED AT [facility] code = 1538) [address] [place] [address], [facility] 30: Trading Analyst/Techni melvin ID = [id number] for AKINSONU, BEATRIZ Lab Interpretation (test Abnormal code = 41548-6) [facility]-Glucose [id number] 12:00:30 Test Item Value Reference Range Interpretation Comments POC-Glucose Meter (test 111 mg/dL 70-110 H : TE STED AT [facility] code = 1538) [address] [place] [address], [facility] 30: Trading Analyst/Techni melvin ID = [id number] for AKINSONU, BEATRIZ Lab Interpretation (test Abnormal code = 92544-2) [facility]-Glucose [id number] 12:00:30 Test Item Value Reference Range Interpretation Comments POC-Glucose Meter (test 111 mg/dL 70-110 H : TE STED AT [facility] code = 1538) [address] [place] [address], [facility] 30: Trading Analyst/Techni melvin ID = [id number] for AKINSONU, BEATRIZ Lab Interpretation (test Abnormal code = 72627-1) [facility]-Glucose [id number] 12:00:30 Test Item Value Reference Range Interpretation Comments POC-Glucose Meter (test 111 mg/dL 70-110 H : TE STED AT [facility] code = 1538) [address] [place] [address], [facility] 30: Trading Analyst/Techni melvin ID = [id number] for AKINSONU, BEATRIZ Lab Interpretation (test Abnormal code = 66527-1) [facility]-Glucose [id number] 12:00:30 Test Item Value Reference Range Interpretation Comments POC-Glucose Meter (test 111 mg/dL 70-110 H : TE STED AT [facility] code = 1538) 6720 [facility], 770 30: Trading Analyst/Techni melvin ID = [id number] for BEATRIZ FRANCIS Lab Interpretation (test Abnormal code = 72524-9) [facility] [id number] 12:00:30 Test Item Value Reference Range Interpretation Comments POC-GLUCOSE METER 111 mg/dL 70-110 H : TESTED A T [facility] 6720 (BEAKER) (test code = YAYA [place] [facility], 1538) [address]: Trading Analyst/Techni melvin ID = [id number] for BEATRIZ PONCE RAD, HAND, 3 VIEWS, [id number] 11:54:00Reason for exam:->pain after seizure, eval for trauma/fracture [facility] 1980 Sex: MFINAL REPORT EXAMINATION: RAD, HAND, 3 VIEWS, LEFT INDICATION: Pain, seizure COMPARISON: None FINDINGS: Radiographs of the left hand demonstrate no acute fracture or dislocation. Alignment is anatomic. Unremarkable soft tissues. IMPRESSION: No acute osseous injury Signed: Gaye Zurita Verified Date/Time: 01/22/2022 11:54:14 POCT-GLUCOSE [id number] 08:11:07 Test Item Value Reference Range Interpretation Comments POC-GLUCOSE METER 76 mg/dL 70-110 : TESTED A T [facility] 6720 (BEAKER) (test code = [facility] Mainor [facility], 1538) [address]: Trading Analyst/Techni melvin ID = [id number] for BEATRIZ VILLALTA [id number] 06:46:53 Test Item Value Reference Range Interpretation Comments MAGNESIUM (BEAKER) (test code = 1.9 mg/dL 1.6-2.6 627) Trading Analyst ID - [id number] 06:46:53 Test Item Value Reference Range Interpretation Comments PHOSPHORUS (BEAKER) (test code = 3.6 mg/dL 2.3-4.7 604) Trading Analyst ID - BSBASIC METABOLIC [id number] 06:46:52 Test Item Value Reference Range Interpretation [...] S NOT APPLICABLE FOR DIALYSIS PATIEN TS. Trading Analyst ID - BSCBC W/PLT COUNT & AUTO [id number] 06:45:34 Test Item Value Reference Range Interpretation [...] PERCENT (BEAKER) (test code = 2801) POCT-GLUCOSE [id number] 06:27:54 Test Item Value Reference Range Interpretation Comments POC-GLUCOSE METER 101 mg/dL 70-110 : TESTED A T [facility] 6720 (BEAKER) (test code = [place], 1538) [address]: Trading Analyst/Techni emlvin ID = [id number] for Marlen Daly POCT-GLUCOSE [id number] 23:58:55 Test Item Value Reference Range Interpretation Comments POC-GLUCOSE METER 99 mg/dL 70-110 : TESTED A T [facility] 6720 (BEAKER) (test code = [facility], 1538) [address]: Trading Analyst/Techni melvin ID = [id number] for Marlen Singletary POCT-GLUCOSE [id number] 16:25:08 Test Item Value Reference Range Interpretation Comments POC-GLUCOSE METER 95 mg/dL 70-110 : TESTED A T [facility] 6720 (BEAKER) (test code = [facility], 1538) [address]76: Trading Analyst/Techni melvin ID = [id number] for [place], [employer] VALPROIC ACID LEVEL, [id number] 14:53:33 Test Item Value Reference Range Interpretation Comments VALPROIC ACID TOTAL (BEAKER) (test 36 ug/mL 50-100 L code = 924) Therapeutic range for some clinical conditions may be >100 ug/mLOperator ID - ISAURA LPOCT-GLUCOSE [id number] 09:05:57 Test Item Value Reference Range Interpretation Comments POC-GLUCOSE METER 92 mg/dL 70-110 : TESTED A T [facility] 6720 (BEAKER) (test code = [facility], 1538) 27625: Trading Analyst/Techni melvin ID = [id number] for [place], [employer] [id number] 07:25:22 Test Item Value Reference Range Interpretation Comments PHOSPHORUS (BEAKER) (test code = 3.5 mg/dL 2.3-4.7 604) Trading Analyst ID - ISAURA LBASIC METABOLIC [id number] 07:25:21 Test Item Value Reference Range Interpretation [...] S NOT APPLICABLE FOR DIALYSIS PATIEN TS. Trading Analyst ID - ISAURA [id number] 07:25:21 Test Item Value Reference Range Interpretation Comments MAGNESIUM (BEAKER) (test code = 2.0 mg/dL 1.6-2.6 627) Trading Analyst ID - PIRENETTA LCBC W/PLT COUNT & AUTO [id number] 06:33:11 Test Item Value Reference Range Interpretation [...] PERCENT (BEAKER) (test code = 2801) POCT-GLUCOSE [id number] 22:07:10 Test Item Value Reference Range Interpretation Comments POC-GLUCOSE METER 81 mg/dL 70-110 : TESTED A T [facility] 6720 (BEAKER) (test code = [facility], 1538) 068[address]: Trading Analyst/Techni melvin ID = [id number] for Marlen Singletary POCT-GLUCOSE [id number] 16:27:10 Test Item Value Reference Range Interpretation Comments POC-GLUCOSE METER 110 mg/dL 70-110 : TESTED A T [facility] 6720 (BEAKER) (test code = [facility], 1538) 04884: Trading Analyst/Techni melvin ID = [id number] for Genesis Reed [id number] 14:01:40 Test Item Value Reference Range Interpretation Comments POTASSIUM (BEAKER) (test code = 4.3 meq/L 3.5-5.1 379) Trading Analyst ID - ISAURA [id number] 14:01:39 Test Item Value Reference Range Interpretation Comments MAGNESIUM (BEAKER) (test code = 2.4 mg/dL 1.6-2.6 627) Trading Analyst ID - ISAURA LPOCT-GLUCOSE [id number] 11:12:06 Test Item Value Reference Range Interpretation Comments POC-GLUCOSE METER 97 mg/dL 70-110 : TESTED A T [facility] 6720 (BEAKER) (test code = [facility], 1538) 77080: Trading Analyst/Techni melvin ID = [id number] for Genesis Martinez CBC W/PLT COUNT & AUTO [id number] 06:11:05 Test Item Value Reference Range Interpretation [...] (test code = 2801) VITAMIN B12 AND [id number] 06:06:00 Test Item Value Reference Range Interpretation Comments VITAMIN B12 (BEAKER) 608 pg/mL 213-816 (test code = 774) FOLATE (BEAKER) 7.90 ng/mL See_Comment [Automated message] (test code = 362) The system which generated this result transmitted ref erence range: >=7.00. The reference range was not used to interpr et this result as normal/abnormal . Trading Analyst ID - ISAURA LTSH/FREE T4 IF [id number] 06:05:58 Test Item Value Reference Range Interpretation Comments THYROID STIMULATING HORMONE 1.956 uIU/mL 0.350-4.940 (BEAKER) (test code = 772) Trading Analyst ID - ISAURA [id number] 06:02:15 Test Item Value Reference Range Interpretation Comments PHOSPHORUS (BEAKER) (test code = 3.3 mg/dL 2.3-4.7 604) Trading Analyst ID - [id number] 06:02:14 Test Item Value Reference Range Interpretation Comments MAGNESIUM (BEAKER) (test code = 1.8 mg/dL 1.6-2.6 627) Trading Analyst ID - DBCOMPREHENSIVE METABOLIC [id number] 06:02:14 Test Item Value Reference Range Interpretation [...] S NOT APPLICABLE FOR DIALYSIS PATIEN TS. Trading Analyst ID - DBHIGH SENSITIVITY TROPONIN [id number] 05:37:42 Test Item Value Reference Range Interpretation Comments HIGH SENSITIVITY < pg/ml See_Comment [Automated message] TROPONIN I (test code = The system which 3290189) generated this result transmitted ref erence range: <=35. Th e reference range was not used to interpr et this result as normal/abnormal . Trading Analyst ID - DBThe EMERGENCY PREPAREDNESS COORDINATOR STAT High Sensitivity Troponin-I results should be used in conjunctionwith other diagnostic information such as ECG, clinical observations and information, and patient symptoms to aid in the diagnosis of ID.PHENYTOIN LEVEL, [id number] 05:37:18 Test Item Value Reference Range Interpretation Comments PHENYTOIN (DILANTIN) (BEAKER) 13.3 ug/mL 10.0-20.0 (test code = 605) Trading Analyst ID - PIAYA LVALPROIC ACID LEVEL, [id number] 05:36:59 Test Item Value Reference Range Interpretation Comments VALPROIC ACID TOTAL (BEAKER) (test 53 ug/mL 50-100 code = 924) Therapeutic range for some clinical conditions may be >100 ug/mLOperator ID - PIAYA LLACTIC ACID, [id number] 05:30:37 Test Item Value Reference Range Interpretation Comments LACTATE BLOOD VENOUS (2) (BEAKER) 0.83 mmol/L 0.50-2.20 (test code = 2872) Trading Analyst ID - DBVALPROIC ACID, [id number] 23:29:56 Test Item Value Reference Range Interpretation Comments VALPROIC A (test code = 54 ug/mL 50-100 7602809306) TUCKER (test code = TUCKER) Toxic Range: ?Greater than 100 ug/mL Lab Interpretation (test Normal code = 97476-8) [facility] WITH [id number] 22:55:09 Test Item Value Reference Range Interpretation [...] RDW-SD (test code = 45.4 fL 38.5-51.6 48783-9) RDW-CV (test code = 14.1 % 12.1-15.4 788-0) PLT (test code = See_Comment H [Automated 777-3) message] The sy stem which generated this result transmitted reference range : 150 - 328 10*3/ ?L. The reference r gerardo was not used to interpret this result as normal/abnormal . MPV (test code = 9.5 fL 9.8-13.0 L 45776-2) NRBC/100 WBC (test See_Comment [Automat ed code = 5891785143) message] The system which generated this result transmitted reference range : 0.0 - 10.0 /100 WBCs. The refer ence range was not u sed to interpret th is result as normal/abnormal . NRBC x10^3 (test code <0.01 See_Comment [Auto mated = 0680169527) message] The s ystem which generated this result transmitted reference range : 10*3/?L. The reference range was not used to interpret this result as normal/abnormal . GRAN MAT (NEUT) % 39.7 % (test code = 770-8) IMM GRAN % (test code 0.70 % = 4023835168) LYMPH % (test code = 41.5 % 736-9) MONO % (test code = 15.1 % 5905-5) EOS % (test code = 2.5 % 713-8) BASO % (test code = 0.5 % 706-2) GRAN MAT x10^3(ANC) 2.25 10*3/uL 1.99-6.95 (test code = 0539429751) IMM GRAN x10^3 (test 0.04 10*3/uL 0.00-0.06 code = 4904137299) LYMPH x10^3 (test code 2.36 10*3/uL 1.09-3.23 = 731-0) MONO x10^3 (test code 0.86 10*3/uL 0.36-1.02 = 742-7) EOS x10^3 (test code = 0.14 10*3/uL 0.06-0.53 711-2) BASO x10^3 (test code 0.03 10*3/uL 0.01-0.09 = 704-7) Lab Interpretation Abnormal (test code = 91011-9) [facility]. METABOLIC PANEL (21538)2021-09-15 22:28:20 Test Item Value Reference Range Interpretation Comments NA (test code = 136 mmol/L 135-145 8679810599) K (test code = 4.3 mmol/L 3.5-5.0 9028732696) CL (test code = 108 mmol/L 98-108 0098048073) CO2 TOTAL (test code = 26 mmol/L 23-31 4590998373) AGAP (test code = 2-16 9393461767) BUN (test code = 16 mg/dL 7-23 8511714849) GLUCOSE (test code = 86 mg/dL 70-110 7029433795) CREATININE (test code = 0.69 mg/dL 0.60-1.25 2118417303) TOTAL BILI (test code = 0.2 mg/dL 0.1-1.9 5760685826) CALCIUM (test code = 8.4 mg/dL 8.6-10.6 L 7978690633) T PROTEIN (test code = 6.0 g/dL 6.3-8.2 L 4059940569) ALBUMIN (test code = 3.4 g/dL 3.5-5.0 L 3014011608) ALK PHOS (test code = 70 U/L 34-122 5428456222) ALTv (test code = 14 U/L 5-50 1742-6) AST(SGOT) (test code = 23 U/L 13-40 1274916352) eGFR (test code = mL/min/1.73m2 7133166212) TUCKER (test code = TUCKER) Association of [...] tests). Lab Interpretation Abnormal (test code = 36156-8) [facility] Whole [id number] 22:01:16 Test Item Value Reference Range Interpretation Comments LACTIC ACID (test code = 1.74 mmol/L 0.50-2.20 2932623305) Lab Interpretation (test code = Normal 42543-1) [facility] [id number] 14:50:00Surgical Pathology Report Case: [id number] Authorizing Provider: Kimberly Mann Collected: 11/09/2020 08:59 AM MD Светлана Ordering Location: [address] Received: 11/11/2020 08:24 AM Service Pathologist: Anahi León MD Specimen: Gallbladder This amendment is issued to correct a transcriptional error. A. GALLBLADDER, CHOLECYSTECTOMY: - CHRONIC CHOLECYSTITIS. Signing Pathologist Direct Phone Line: [phone] electronically signed by Anahi León MD on 11/13/2020 at 2:50 PM [id number] painGallbladderA. Received fresh, labeled with the patient's [...] ranges 0.1-0.3 cm. No gross lesions areidentified. Systems Integrator sections are submitted.Section codeA1: Cystic duct margin (blue), en faceA2: Gallbladder wallChelsea CHRISTIAN Buitrago PA (ASCP)cmPerformed.[facility], Department of Pathology, [address] [place] [address], [facility], [address] [place] [id number], [facility], [facility], [address] [place] [id number], OWRL[facility] EXAM 2020-11-13 11:14:00Surgical Pathology Report Case: [id number] Authorizing Provider: Eleno Keane MD Collected: 11/07/2020 03:21 PM Ordering Location: [address] Received: 11/08/2020 08:02 AM Service P athologist: Yadira Gardner MD Specimens: A) - Duodenum, duodenum bx B) - Distal Esophagus, distal esophagus bx REASON FOR ADDENDUM: TO REPORT GMS STAIN RESULT:GMS STAIN: NEGATIVE FOR FUNGAL ELEMENTSAddendum electronically signed by Yadira Gardner MD on 11/13/2020 at 11:14 AMA. DUODENUM,BIOPSY: - CHRONIC PEPTIC DUODENITIS - NEGATIVE FOR FEATURES OF CELIAC DISEASE B. 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 GMS stain is pending and will be reported in an addendum.[id number] obstructionA. DuodenumB. Esophagus, distalA. Received in formalin [...] submitted in toto in B1.CHRISTIAN Monroe PA [facility])cmPerformed.The interpretation of this case included the use of immunohistochemistry or special stains.Control Slides Examined: In-house known positive controls were evaluated along with the test tissue. These control slides run alongside of the patients sample show appropriate staining. Internal positive and negative controls when available are evaluated Immunohistochemistry technical testing was performed at [facility], Pathology Laboratory where it was developed andits performance characteristics were determined. It has not [...] perform high complexity clinical laboratory testing.BASIC METABOLIC [id number] 04:30:00 Test Item Value Reference Range Interpretation [...] S NOT APPLICABLE FOR DIALYSIS PATIEN TS. Trading Analyst ID - [id number] 04:30:00 Test Item Value Reference Range Interpretation Comments MAGNESIUM (BEAKER) (test code = 1.8 mg/dL 1.6-2.6 627) Trading Analyst ID - EDASIHEPATIC FUNCTION [id number] 04:30:00 Test Item Value Reference Range Interpretation [...] (test code = 26 U/L 6-55 347) Trading Analyst ID - EDASICBC W/PLT COUNT & AUTO [id number] 03:48:00 Test Item Value Reference Range Interpretation [...] 0-1 PERCENT (BEAKER) (test code = 2801) [id number] 05:11:00 Test Item Value Reference Range Interpretation Comments MAGNESIUM (BEAKER) (test code = 1.8 mg/dL 1.6-2.6 627) Trading Analyst ID - ADMINHEPATIC FUNCTION [id number] 05:11:00 Test Item Value Reference Range Interpretation [...] (test code = 29 U/L 6-55 347) Trading Analyst ID - ADMINBASIC METABOLIC [id number] 05:11:00 Test Item Value Reference Range Interpretation [...] S NOT APPLICABLE FOR DIALYSIS PATIEN TS. Trading Analyst ID - ADMINCBC W/PLT COUNT & AUTO [id number] 04:33:00 Test Item Value Reference Range Interpretation [...] PERCENT (BEAKER) (test code = 2801) SARS-COV2/RT-PCR ([facility]2020-11-08 09:38:00 Test Item Value Reference Range Interpretation Comments SARS-COV2/RT-PCR (test Negative Not Detected, Negative, code = 8655769) See external report for linked test SARS-COV-2 PERFORMING LAB [facility] (test code = 5342225) Negative result for this test determines that [...] of the Act.Fact Sheet for Healthcare Prov iders:https://www.[employer]/sites/default/files/product/documents/Fact_Sheet_HC _Mqvupdgzn_Cawf_IRVI-BrY-3.pdfFact Sheet for Healthcare Patients:https://www.[employer]/sites/default/files/product/docume nts/Dksb_Ayxqc_Mfqqotkd_Ogbv_MSEN-ZmN-4.pdfPerforming Laboratory:[address]jarano.[place], [place] [address]ASJDR METABOLIC PANEL 2020-11-08 04:42:00 Test Item Value [...] S NOT APPLICABLE FOR DIALYSIS PATIEN TS. Trading Analyst ID - DANA [id number] 04:42:00 Test Item Value Reference Range Interpretation Comments MAGNESIUM (BEAKER) (test code = 1.8 mg/dL 1.6-2.6 627) Trading Analyst ID Ramsey CORTEZ WHEPATIC FUNCTION [id number] 04:42:00 Test Item Value Reference Range Interpretation [...] (test code = 38 U/L 6-55 347) Trading Analyst ID Ramsey CORTEZ [id number] 04:42:00 Test Item Value Reference Range Interpretation Comments LIPASE (BEAKER) (test code = 749) 12 U/L 8-78 Trading Analyst ID Ramsey CORTEZ WPROTHROMBIN [id number] 04:35:00 Test Item Value Reference Range Interpretation [...] is 2.5-3.5 for patients wiht mechanical heart valves.[id number] 04:35:00 Test Item Value Reference Range Interpretation Comments PARTIAL THROMBOPLASTIN TIME 28.4 seconds 22.5-36.0 (BEAKER) (test code = 760) CBC W/PLT COUNT & AUTO [id number] 03:57:00 Test Item Value Reference Range Interpretation [...] 0-1 PERCENT (BEAKER) (test code = 2801) [place] [id number] 16:06:13Reason for exam:->[facility] : 1980 Sex: MFluoroscopic unit utilized for a procedure performed in the OR. No interpretation was requested. Refer to the operative report for findings. Refer to PACS for patient radiation dose information.MR, BRAIN, WITHOUT [id number] 19:26:00Unlisted Reason for Exam - Click Yes and Enter Reason Below->YesUnlisted Reason for Exam->tingling/numbnessFINAL REPORT MR, BRAIN, WITHOUT CONTRAST, MR, MRA, BRAIN, WITHOUT CONTRAST, MR,MRA, NECK, WITHOUT IV CONTRAST INDICATION: Unlisted Reason for Examtingling/numbness TECHNIQUE: Multiplanar, multisequence MR imaging of the brain without intravenous contrast.MRA of the head utilizing3-D xvsm-ww-erjazl technique, with 3-D reconstructions.MRA of the neck utilizing 2-D and 3-D qjja-em-qaryzm technique, with 3-D reconstructions. COMPARISON: None FINDINGS: [...] Date/Time: 07/08/2020 19:26:58 MR, MRA, BRAIN, WITHOUT [id number] 19:26:00Unlisted Reason for Exam - Click Yes and Enter Reason Below->YesUnlisted Reason for Exam->tingling, numbnessFINAL REPORT MR, BRAIN, WITHOUT CONTRAST, MR, MRA, BRAIN, WITHOUT CONTRAST, MR,MRA, NECK, WITHOUT IV CONTRAST INDICATION: Unlisted Reason for Examtingling/numbness TECHNIQUE: Multiplanar, multisequence MR imaging of the brain without intravenous contrast.MRA of the head utilizing3-D qgkl-gx-qfronw technique, with 3-D reconstructions.MRA of the neck utilizing 2-D and 3-D xbml-vi-erewbb technique, with 3-D reconstructions. COMPARISON: None FINDINGS: [...] 07/08/2020 19:26:58 MR, MRA, NECK, WITHOUT IV [id number] 19:26:00Unlisted Reason for Exam - Click Yes and Enter Reason Below->YesUnlisted Reason for Exam->tingling, numbnessFINAL REPORT MR, BRAIN, WITHOUT CONTRAST, MR, MRA, BRAIN, WITHOUT CONTRAST, MR,MRA, NECK, WITHOUT IV CONTRAST INDICATION: Unlisted Reason for Examtingling/numbness TECHNIQUE: Multiplanar, multisequence MR imaging of the brain without intravenous contrast.MRA of the head utilizing3-D iiku-lu-rwyxzz technique, with 3-D reconstructions.MRA of the neck utilizing 2-D and 3-D heuc-oc-sqoogj technique, with 3-D reconstructions. COMPARISON: None FINDINGS: [...] within the head and neck. Signed: [facility] Verified Date/Time: 07/08/2020 19:26:58
[2022-12-11 00:54] LABS: Hematocrit 38.3 % (39.6-49.0); Lymphocytes % 35.5 % (15.3-44.8); MCV 84.4 fL (80-100); MPV 8.1 fL (7.6-11.3); RBC Red Blood Cell Count 4.53 M/uL (4.33-5.43)
[2022-12-11] MEDS ORDERED: NA CHLORIDE 0.9% 100 ML ONE (00:55)
[2022-12-11] MEDS ORDERED: LEVETIRACETAM 500 MG/5 ML VIAL IV ONE (00:55)
[2022-12-11 01:10] LABS: Potassium 3.8 mmol/L (3.5-5.1); Valproic Acid (Depakene) Level 37.9 ug/mL (50-100)
--- NOTE | 2022-12-11 05:15 | EDPHYS ---
Physician Documentation [facility] Name: Ta Quezada Age: 42 yrs Sex: Male : 1980 Arrival Date: 12/11/2022 Time: 00:33 Bed 6 Private MD: ED Physician Rashawn Ferrara HPI: 12/11 00:55 This 42 yrs old Male presents to ER via EMS with complaints of seizure. rn 00:55 The patient presents with a history of multiple seizures, an unknown number. Character rn of seizure(s): Loss of consciousness: it is not known if the patient experienced loss of consciousness, Motor activity: generalized, focal activity, Incontinence: none, Apnea: the patient did not experience apnea, Circulation: the patient did not experience evidence of pulse disturbance. Associated injury: The patient did not suffer any apparent associated injury. Current symptoms: decreased level of consciousness, is sleeping but easy to arouse. The patient has experienced similar episodes in the past. EMS reports maybe 2 seizures prior to arrival. Has hx of seizures. Takes depakote. Given 5mg versed twice, once each for separate seizures. . Historical: - Allergies: 00:35 none; as6 - Home Meds: 00:35 Depakote 125 mg Oral TbEC [Active]; Keppra 1,000 mg Oral tab [Active]; Lasix Oral as6 [Active]; pantoprazole Oral [Active]; pregabalin Oral [Active]; - PMHx: 00:35 Depression; GERD; Kidney stones; Hypertension; neuropathy; Seizure; TIA; as6 - PSHx: 00:35 Cholecystectomy; as6 - Immunization history:: Adult Immunizations unknown. - Social history:: Smoking status: unknown. - Unable to obtain history due to: sedated and post-ictal. ROS: 00:55 Unable to obtain ROS due to sedated. rn Exam: 00:55 Constitutional: This is a well developed, well nourished patient who is sleepy but rn arousable Head/Face: Normocephalic, atraumatic. Eyes: No nystagmus or eye deviation Cardiovascular: Regular rate and rhythm. No pulse deficits. Respiratory: No increased work of breathing, no retractions or nasal flaring. Abdomen/GI: Soft, non-tender Skin: Warm, dry MS/ Extremity: Pulses equal, no cyanosis. Neuro: Somnolent, arousable to voice and tactile stimuli Vital Signs: 00:33 BP 130 / 80; Pulse 72; Resp 18 S; Temp 98.6(A); Pulse Ox 95% on R/A; Weight 113 kg (M); as6 01:01 BP 135 / 72; Pulse 67; Resp 17 S; Pulse Ox 95% on R/A; as6 02:06 BP 116 / 77; Pulse 63; Resp 17 S; Pulse Ox 96% on R/A; as6 03:07 BP 118 / 74; Pulse 60; Resp 17 S; Pulse Ox 95% on R/A; as6 04:12 BP 109 / 64; Pulse 59; Resp 16 S; Pulse Ox 95% on R/A; as6 MDM: 00:35 Patient medically screened. rn 05:13 Differential diagnosis: seizure. 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 Data reviewed: vital signs, nurses notes. Data reviewed: old medical records, lab test result(s), EKG, and as a result, I will discharge patient. Consideration of Admission/Observation Escalation of care including admission/observation considered. Counseling: I had a detailed discussion with the patient and/or guardian regarding: the historical points, exam findings, and any diagnostic results supporting the discharge/admit diagnosis, lab results, the need for outpatient follow up, to return to the emergency department if symptoms worsen or persist or if there are any questions or concerns that arise at home. Response to treatment: the patient's symptoms have markedly improved after treatment, and as a result, I will discharge patient. Special discussion: I discussed with the patient/guardian in detail that at this point there is no indication for admission to the hospital. It is understood, however, that if the symptoms persist or worsen the patient needs to return immediately for re-evaluation. Based on the history and exam findings, there is no indication for further emergent testing or inpatient evaluation. I discussed with the patient/guardian the need to see the neurologist for further evaluation of the symptoms. ED course: states has breakthrough seizures almost daily, no further seizures here, given keppra, has appt with Dr. Earl coming up. requesting to be discharged, will dc home with return precautions. . 12/11 00:39 Order name: CBC with Diff; Complete Time: 01:17 rn 12/11 00:39 Order name: Basic Metabolic Panel; Complete Time: 01:17 rn 12/11 00:39 Order name: Depakote; Complete Time: 01:17 rn 12/11 00:39 Order name: EKG; Complete Time: 00:40 rn 12/11 01:09 Order name: Glucose, Ancillary Testing; Complete Time: 01:17 EDMS 12/11 00:39 Order name: IV Start; Complete Time: 00:47 rn 12/11 00:39 Order name: Glucose Level; Complete Time: 01:00 rn 12/11 00:39 Order name: Cardiac monitoring; Complete Time: 00:47 rn 12/11 00:39 Order name: O2 Sat Monitoring; Complete Time: 00:47 rn 12/11 00:39 Order name: EKG - Nurse/Tech; Complete Time: 01:00 rn Administered Medications: 00:55 Drug: Keppra (levETIRAcetam) 1000 mg Route: IV; Rate: calculated rate; Site: left hand; as6 04:50 Follow up: Response: No adverse reaction; IV Status: Completed infusion; IV Intake: as6 100ml Point of Care Testing: Blood Glucose: 01:01 Blood Glucose: 107 mg/dL; as6 Ranges: Critical Glucose Levels:Adult <50 mg/dl or >400 mg/dl <40 mg/dl or >180 mg/dl Disposition Summary: 12/11/22 05:15 Discharge Ordered Location: Home rn Problem: an ongoing problem rn Symptoms: have improved rn Condition: Stable rn Diagnosis - Epileptic seizures related to external causes, not intractable, without status rn epilepticus Followup: rn - With: Pito Earl MD - When: As needed - Reason: Recheck today's complaints, Re-evaluation by your physician Discharge Instructions: - Discharge Summary Sheet rn - Epilepsy rn - Seizure, Adult rn Forms: - Medication Reconciliation Form rn - Thank You Letter rn - Antibiotic yarn dyer - Prescription Opioid Use rn Signatures: Dispatcher [employer] Rashawn Whitfield MD MD rn Slawson, Ashby, RN RN as6
--- NOTE | 2022-12-11 05:15 | ER ---
Nurse's Notes [facility] Name: Ta Quezada Age: 42 yrs Sex: Male : 1980 Arrival Date: 12/11/2022 Time: 00:33 Bed 6 Private MD: Diagnosis: Epileptic seizures related to external causes, not intractable, without status epilepticus Presentation: 12/11 00:33 Chief complaint: EMS states: called out for seizures, gave 2 rounds on intranasal as6 versed. Coronavirus screen: At this time, the client does not indicate any symptoms associated with coronavirus-19. Ebola Screen: No symptoms or risks identified at this time. Initial Sepsis Screen: Does the patient meet any 2 criteria? No. Patient's initial sepsis screen is negative. Does the patient have a suspected source of infection? No. Patient's initial sepsis screen is negative. Risk Assessment: Do you want to hurt yourself or someone else? Patient reports no desire to harm self or others. Onset of symptoms was December 11, 2022. 00:33 Method Of Arrival: EMS: [facility] as6 00:33 Acuity: RENE 2 as6 Historical: - Allergies: 00:35 none; as6 - Home Meds: 00:35 Depakote 125 mg Oral TbEC [Active]; Keppra 1,000 mg Oral tab [Active]; Lasix Oral as6 [Active]; pantoprazole Oral [Active]; pregabalin Oral [Active]; - PMHx: 00:35 Depression; GERD; Kidney stones; Hypertension; neuropathy; Seizure; TIA; as6 - PSHx: 00:35 Cholecystectomy; as6 - Immunization history:: Adult Immunizations unknown. - Social history:: Smoking status: unknown. - Unable to obtain history due to: sedated and post-ictal. Screenin:36 [facility] ED Fall Risk Assessment (Adult) Confusion or Disorientation Yes (5 pts) as6 Score/Fall Risk Level 3 or more points = High Risk. Abuse screen: Denies threats or abuse. Denies injuries from another. Nutritional screening: No deficits noted. Tuberculosis screening: No symptoms or risk factors identified. Assessment: 00:36 General: Appears in no apparent distress. Behavior is drowsy. Pain: Complains of pain as6 in generalized. Neuro: Level of Consciousness is post ictal. Respiratory: Respiratory effort is even, unlabored. 02:06 General: pt sleeping at this time. as6 03:07 Reassessment: Patient appears in no apparent distress at this time. as6 Vital Signs: 00:33 BP 130 / 80; Pulse 72; Resp 18 S; Temp 98.6(A); Pulse Ox 95% on R/A; Weight 113 kg (M); as6 01:01 BP 135 / 72; Pulse 67; Resp 17 S; Pulse Ox 95% on R/A; as6 02:06 BP 116 / 77; Pulse 63; Resp 17 S; Pulse Ox 96% on R/A; as6 03:07 BP 118 / 74; Pulse 60; Resp 17 S; Pulse Ox 95% on R/A; as6 04:12 BP 109 / 64; Pulse 59; Resp 16 S; Pulse Ox 95% on R/A; as6 ED Course: 00:33 Patient arrived in ED. as6 00:33 Arm band placed on. as6 00:35 Triage completed. as6 00:35 Rashawn Ferrara MD is Attending Physician. rn 00:36 Bed in low position. Call light in reach. Side rails up X2. Seizure precautions as6 initiated. 00:47 Riley Arrington RN is Primary Nurse. as6 01:01 Maintain EMS IV. Dressing intact. Good blood return noted. Site clean \T\ dry. Gauge \T\ as 6 site: 20G left hand. 05:15 Pito Earl MD is Referral Physician. rn 06:01 No provider procedures requiring assistance completed. IV discontinued, intact, as6 bleeding controlled, No redness/swelling at site. Pressure dressing applied. Administered Medications: 00:55 Drug: Keppra (levETIRAcetam) 1000 mg Route: IV; Rate: calculated rate; Site: left hand; as6 04:50 Follow up: Response: No adverse reaction; IV Status: Completed infusion; IV Intake: as6 100ml Medication: 06:01 VIS not applicable for this client. as6 Point of Care Testing: Blood Glucose: 01:01 Blood Glucose: 107 mg/dL; as6 Ranges: Intake: 04:50 IV: 100ml; Total: 100ml. as6 Outcome: 05:15 Discharge ordered by . rn 06:01 Discharged to home via wheelchair, with friend. as6 06:01 Condition: stable 06:01 Discharge instructions given to patient, friend, Instructed on discharge instructions, follow up and referral plans. Demonstrated understanding of instructions, follow-up care. 06:01 Patient left the ED. as6 Signatures: Rashawn Ferrara MD MD rn Slawson, Ashby, RN RN as6
[2022-12-11 06:07] VITALS: TEMP 98.6
[2022-12-11 06:11] VITALS: O2SAT 95
[2022-12-11 06:12] VITALS: BP 109/64
--- NOTE | 2022-12-11 13:19 | EKG ---
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
== END 2022-12-11 06:01 | disposition home or self-care (01) ==
LOC: ER 00:28
DX: G40.509 Epileptic seizures related to external causes, not intractable, without status epilepticus (principal)
CPT/HCPCS: 96365; 93005; 85025; 80048; 36415; 82947; 80164; 99283; 96366; J1953

== ENCOUNTER 2023-06-27 19:09 | Inpatient (IN) | payer OTHER, SELFPAY ==
--- OUTSIDE RECORDS SUMMARY | 2023-06-27 19:17 | XMS REPORT | Continuity of Care Document ---
:1980 Author Organization [facility] t Address [address] [place] [address] [address] [place] [address] Care Team Providers Name Role Phone DEISY AGEE Primary Care Physician Unavailable VIRGINIA LEWIS Attending Clinician Unavailable JUAQUIN CLARKE Attending Clinician Unavailable Doctor Unassigned, [place] Attending Clinician Unavailable Candice Justin MD Attending Clinician CANDICE JUSTIN Attending Clinician Unavailable Fortino GUAMAN, Hayes Hoover Attending Clinician [phone] Hanane Baker MD Attending Clinician Simba Dubois MD Attending Clinician Patrizia GUAMAN, Fausto Myers Attending Clinician [phone] SIMBA DUBOIS Attending Clinician Unavailable SUSANNE ROLDAN Attending Clinician Unavailable Susanne Roldan DO Attending Clinician Shubham DOMINGUEZ, Barbara Delgadillo Attending Clinician GAVIOTA VALENTINE Attending Clinician Unavailable Jose Day MD Attending Clinician Abdiaziz Jaimes MD Attending Clinician Gaviota Valentine MD Attending Clinician Kirill Munguia MD Attending Clinician Saloni FI[employer] P[employer] 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 00:00:00 Problems Condition Condition Condition Status Onset Resolution Last Treating Co mments Source Name Details Category Date Date Treatment Clinician Date Impaired Impaired Disease [facility] and ADLs and ADLs 00:00: Medica l 00 [place] TIA TIA Disease Recurre [facility] (transient (transient nce 4-05 [facility] ischemic ischemic 00:00: Medica l attack) attack) 00 [place] HTN HTN Disease Recurre [facility] (hypertens (hypertens nce 4-05 [facility] ion) ion) 00:00: Medical 00 [place] Substance Substance Disease Recurre [facility] abuse abuse nce 4-05 [facility] 00:00: Medical 00 [place] Depression Depression Disease Recurre [facility] nce 4-05 [facility] 00:00: Medical 00 [place] GERD GERD Disease Recurre [facility] (gastroeso (gastroeso nce 4-05 [facility] phageal phageal 00:00: Medical reflux reflux 00 Center disease) disease) Status Status Disease Active [facility] epilepticu epilepticu 4-05 [facility] s s 00:00: Medical 00 [place] Seizure Seizure Disease Recurre [facility] n[facility] 4-04 [facility] 00:00: Medical 00 Center AMS AMS Disease Active 2020-10 Univers (altered (altered 1-05 ity of mental mental 00:00: [place] status) status) 00 Medical Branch Obesity Obesity Disease Active 2020-10 Univers (BMI (BMI 1-05 ity of 30-39.9) 30-39.9) 00:00: [place] [id number] Medical Branch Acute Acute Disease Active 2020-10 Overview: Univer s blood loss blood loss 10-22 [place] ity of anemia anemia 00:00: g of this [place] note Medical might be Branch different from the original. Added automatic ally from request for surgery [id number] [place] Disease Active [facility] lithiasis lithiasis 11-07 [facility] s 00:00: [place] [address] Center Tingling Tingling Disease Active [facility] of right of right 07-08 [facility] upper upper 00:00: Medical extremity extremity 00 Cent er Tingling Tingling Disease Active [facility] 07[facility]08 [facility] 00:00: Medical Center Allergies, Adverse Reactions, Alerts Allergy Allergy Status Severity Reaction(s) Onset Inactive Treating Comm ents Source Name Type Date Date Clinician NO KNOWN Drug Active Univers ALLERGIE Class ity of S [facility] [place] NO KNOWN Allergy Active [facility] ALLERGIE S Social History Social Habit Start Date Stop Date Quantity Comments Source Exposure to Not sure University of SARS-CoV-2 (event) [facility] [place] History of tobacco Cigarette Smoker University of [facility] History SDOH [facility] Alcohol Comment Medical C enter History SDOH [facility] Transport Non-Med Medical Center History SDOH [facility] Housing Places Medical Ce nter Lived History SDOH [facility] Alcohol Std Drinks Medica l Center History SDOH [facility] Alcohol Binge Medical [address] [facility] History SDOH 2022-01-22 2022-01-[address] [facility] Housing Unable to 00:00:00 00:00:00 Medical Center Pay History SDOH 2022-01-21 2022-01-[address] [facility] Housing Homeless 00:00:00 00:00:00 Medical Center Last Year History SDOH 2022-01-21 2022-01-[address] [facility] Transport Med 00:00:00 00:00:[address] Tobacco Comment 2021-08-22 2021-08-22 stopped smoking Univ ersity of 00:00:00 00:00:00 last week [facility] [place] Cigarettes smoked 2021-08-22 2021-08-22 Univers ity of current (pack per 00:00:00 00:00:00 ) - Reported Branch Tobacco use and 2021-08-22 2021-08-22 Smokeless Universit y of exposure 00:00:00 00:00:00 tobacco non-user [facility] dical Branch Alcohol intake 2020-11-11 2020-11-11 Ex-drinker [facility] 00:00:00 00:00:00 (finding) Medical Center History SDOH 2020-11-07 2020-11-[address] [facility] Alcohol Frequency 00:00:00 00:00:00 Medical Center Sex Assigned At [address] [facility] kes 00:00:00 00:00:00 Medical Center Smoking Status Start Date Stop Date Source Smokes tobacco daily 2021-08-22 00:00:00 Univers ity of [facility] [place] Medications Ordered Filled Start Stop Current Ordering [...] Q.5D Take [address] e 01-26 by mouth 2 [facility] (PROTONIX) 14:42: 00:00 (two) Medic al 40 MG 18 :00 times Center tablet daily. levETIRAcet 2021-2021- No 1000mg Take [address] (KEPPRA) 01-26 tablet [facility] 1000 MG 00:00: 23:59 (1,000 mg Medi tapan tablet 00 :00 total) by Center mouth every 12 (twelve) hours for 30 days. gabapentin 2021-2021- No 300mg Q.[id number] Take [address] (NEURONTIN) 01-26 [id number] capsule [facility] 300 MG 00:00: 23:59 3D [...] for 30 days. divalproex 2021- No 750mg Q.[id number] Take [address] (DEPAKOTE) 01-26 [id number] tablets [facility] 250 MG EC 00:00: 23:59 [...] for 30 days. gabapentin 2021- No 300mg Q.[id number] Take [address] (NEURONTIN) 01-26 [id number] capsule [facility] 300 MG 00:00: 23:59 3D [...] for 30 days. divalproex 2021- No 750mg Q.[id number] Take [address] (DEPAKOTE) 01-26 [id number] tablets [facility] 250 MG EC 00:00: 23:59 [...] for 30 days. gabapentin 2021- No 300mg Q.[id number] Take [address] (NEURONTIN) 01-26 [id number] capsule [facility] 300 MG 00:00: 23:59 3D [...] for 30 days. divalproex 2021- No 750mg Q.[id number] Take [address] (DEPAKOTE) 01-26 [id number] tablets [facility] 250 MG EC 00:00: 23:59 [...] for 30 days. gabapentin 2021-2021- No 300mg Q.[id number] Take [address] (NEURONTIN) 01-26 [id number] capsule [facility] 300 MG 00:00: 23:59 3D [...] for 30 days. divalproex 2021- No 750mg Q.[id number] Take [address] (DEPAKOTE) 01-26 [id number] tablets [facility] 250 MG EC 00:00: 23:59 [...] for 30 days. gabapentin 2021-2021- No 300mg Q.[id number] Take [address] (NEURONTIN) 01-26 [id number] capsule [facility] 300 MG 00:00: 23:59 3D [...] for 30 days. divalproex 2021- No 750mg Q.[id number] Take [address] (DEPAKOTE) 01-26 [id number] tablets [facility] 250 MG EC 00:00: 23:59 [...] Center per tablet for 30 days. levETIRAcet 2021-0 2021- No 1000mg Take [address] am (KEPPRA) 01-26 tablet [facility] 1000 MG 00:00: 23:59 (1,000 mg Medi tapan tablet 00 :00 total) by Center mouth every 12 (twelve) hours for 30 days. gabapentin 2021- No 300mg Q.[id number] Take [address] (NEURONTIN) 01-26 [id number] capsule [facility] 300 MG 00:00: 23:59 3D [...] for 30 days. divalproex 2021- No 750mg Q.[id number] Take [address] (DEPAKOTE) 01-26 [id number] tablets [facility] 250 MG EC 00:00: 23:59 [...] ER 14 :00 nightly. Center capsule phenytoin 2-0 2022- No 300mg QD Take [address] extended 4-08 04-08 mg by [facility] (DILANTIN) 08:05: 00:00 mouth Medic al 300 MG ER 14 :00 nightly. Center capsule phenytoin 2-0 2022- No 300mg QD Take [address] extended 4-08 04-08 mg by [facility] (DILANTIN) 08:05: 00:00 mouth Medic al 300 MG ER 14 :00 nightly. Center capsule omeprazole 2-0 2022- No 40mg Q.5D Take [...] 00:00 daily. Medical 59 :00 Center omeprazole 2021- No 40mg Q.5D Take [address] (PriLOSEC) 4-05 04-05 by mouth 2 [facility] 40 MG 17:21: 00:00 (two) Medical capsule 59 :00 times Center daily. aspirin 81 2021- No 81mg QD Take [address] MG chewable 4-05 04-05 by mouth Luis es tablet 17:21: 00:00 daily. Medical 59 :00 [place] omeprazole 2021- No 40mg Q.5D Take [address] (PriLOSEC) 4-05 04-05 by mouth 2 Venita kes 40 MG 17:21: 00:00 (two) Medical capsule 59 :00 times Center daily. aspirin 81 2021- No 81mg QD Take [address] MG chewable 4-05 04-05 by mouth Luis es tablet 17:21: 00:00 daily. Medical 59 :00 [place] omeprazole 2021- No 40mg Q.5D Take [address] (PriLOSEC) 4-05 04-05 by mouth 2 Venita kes 40 MG 17:21: 00:00 (two) Medical capsule 59 :00 times Center daily. aspirin 81 2021- No 81mg QD Take [address] MG chewable 4-05 04-05 by mouth Luis es tablet 17:21: 00:00 daily. Medical 59 :00 [place] divalproex 2020-10 250mg 250 mg, Un oz ER 11-16 Oral, ity of (DEPAKOTE 00:45: 01:00 ONCE, 1 [place] ER) 24 hr 00 :00 dose, On Medica l tablet 250 Mon Branch mg 09/15/21 at 1845, Routine NaCl 0.9% 2020-10 1000mL at 999 Uni vers (NS) bolus 11-15 11-30 mL/hr, ity of infusion 22:45: 00:00 1,000 mL, Diaz as 1,000 mL 00 :00 IV Medical Infusion, Branch ONCE, 1 dose, On 09/15/21 at 1645, ELEONORA pantoprazol 2020-10 Yes [id number] 40mg Take 1 Univers e 40 mg EC 1-09 tablet by ity of tablet 00:00: mouth 2 [place] 00 (two) Medical times Branch daily. lidocaine 2020-10 Yes [id number] 10mL Take 10 mL Univers 2% viscous 1-09 by mouth ity o f 2 % 00:00: every 6 [place] solution 00 (six) Medical hours as Branch needed for Oral mucosal pain. sucralfate 2020-10 Yes [id number] 1000mg Take 10 mL Univers 100 mg/mL 1-09 by mouth 4 ity of suspension 00:00: (four) [place] 00 times Medical daily. Branch pantoprazol 2020-10 Yes [id number] 40mg Take 1 Univers e 40 mg EC 1-09 tablet by ity of tablet 00:00: mouth 2 [place] 00 (two) Medical times Branch daily. lidocaine 2020-10 Yes [id number] 10mL Take 10 mL Univers 2% viscous 1-09 by mouth ity o f 2 % 00:00: every 6 [place] solution 00 (six) Medical hours as Branch needed for Oral mucosal pain. sucralfate 2020-10 Yes [id number] 1000mg Take 10 mL Univers 100 mg/mL 1-09 by mouth 4 ity of suspension 00:00: (four) [place] 00 times Medical daily. Branch pantoprazol 2020-10 Yes [id number] 40mg Take 1 Univers e 40 mg EC 1-09 tablet by ity of tablet 00:00: mouth 2 [place] 00 (two) Medical times Branch daily. lidocaine 2020-10 Yes [id number] 10mL Take 10 mL Univers 2% viscous 1-09 by mouth ity o f 2 % 00:00: every 6 [place] solution 00 (six) Medical hours as Branch needed for Oral mucosal pain. sucralfate 2020-10 Yes [id number] 1000mg Take 10 mL Univers 100 mg/mL 1-09 by mouth 4 ity of suspension 00:00: (four) [place] 00 times Medical daily. Branch pantoprazol 2020-10 Yes [id number] 40mg Take 1 Univers e 40 mg EC 1-09 tablet by ity of tablet 00:00: mouth 2 [place] 00 (two) Medical times Branch daily. lidocaine 2020-10 Yes [id number] 10mL Take 10 mL Univers 2% viscous 1-09 by mouth ity o f 2 % 00:00: every 6 [place] solution 00 (six) Medical hours as Branch needed for Oral mucosal pain. sucralfate 2020-10 Yes [id number] 1000mg Take 10 mL Univers 100 mg/mL 1-09 by mouth 4 ity of suspension 00:00: (four) [place] 00 times Medical daily. Branch pantoprazol 2020-10 Yes [id number] 40mg Take 1 Univers e 40 mg EC 1-09 tablet by ity of tablet 00:00: mouth 2 [place] 00 (two) Medical times Branch daily. lidocaine 2020-10 Yes [id number] 10mL Take 10 mL Univers 2% viscous 1-09 by mouth ity o f 2 % 00:00: every 6 [place] solution 00 (six) Medical hours as Branch needed for Oral mucosal pain. sucralfate 2020-10 Yes [id number] 1000mg Take 10 mL Univers 100 mg/mL 1-09 by mouth 4 ity of suspension 00:00: (four) [place] 00 times Medical daily. Branch levETIRAcet 2020-10 Yes Univer s am 500 mg 1-03 ity of tablet 00:00: [place] Medical [facility] divalproex 2020-10 Yes Univers 500 mg EC 1-03 ity of tablet 00:00: Medical Branch levETIRAcet 2020-10 Yes Univer s am 500 mg 1-03 ity of tablet 00:00: [place] Medical [facility] divalproex 2020-10 Yes Univers 500 mg EC 1-03 ity of tablet 00:00: Medical Branch levETIRAcet 2020-10 Yes Univer s am 500 mg 1-03 ity of tablet 00:00: Medical Branch divalproex 2020-10 Yes Univers 500 mg EC 1-03 ity of tablet 00:00: [place] [facility] levETIRAcet 2020-10 Yes Univer s am 500 mg 1-03 ity of tablet 00:00: [place] [facility] divalproex 2020-10 Yes Univers 500 mg EC 1-03 ity of tablet 00:00: [place] [facility] levETIRAcet 2020-10 Yes Univer s am 500 mg -03 ity of tablet 00:00: [place] [facility] divalproex 2020-10 Yes Univers 500 mg EC -03 ity of tablet 00:00: [place] [facility] FLUoxetine 2020-10 Yes 10mg Take 10 mg U nivers 10 mg 0-22 by mouth ity of tablet 00:00: daily. [place] [facility] FLUoxetine 2020-10 Yes 10mg Take 10 mg U nivers 10 mg 0-22 by mouth ity of tablet 00:00: daily. [place] [facility] FLUoxetine 2020-10 Yes 10mg Take 10 mg U nivers 10 mg 0-22 by mouth ity of tablet 00:00: daily. [place] [facility] FLUoxetine 2020-10 Yes 10mg Take 10 mg U nivers 10 mg 0-22 by mouth ity of tablet 00:00: daily. [place] [facility] FLUoxetine 2020-10 Yes 10mg Take 10 mg U nivers 10 mg 0-22 by mouth ity of tablet 00:00: daily. [address] gabapentin 2020-10 Yes 300mg Take 300 Un oz 300 mg 0-21 mg by ity of capsule 00:00: mouth 3 [place] [facility] Medical times [place] daily. baclofen 2020-10 Yes TAKE ONE Un oz mg tablet 0-21 (1) ity of 00:00: TABLET(S) BY [facility] Medical THREE Branch TIMES A DAY NEEDED. gabapentin 2020-10 Yes 300mg Take 300 Un oz 300 mg 0-21 mg by ity of capsule 00:00: mouth 3 [place] [facility] Medical times [place] daily. baclofen 10 2020-10 Yes TAKE ONE Un oz mg tablet 0-21 (1) ity of 00:00: TABLET(S) BY MOUTH Medical THREE Branch TIMES A DAY NEEDED. gabapentin 2020-10 Yes 300mg Take 300 Un oz 300 mg 0-21 mg by ity of capsule 00:00: mouth 3 [place] (three) Medical times [place] daily. baclofen 10 2020-10 Yes TAKE ONE [...] 0-21 (1) ity of 00:00: TABLET(S) BY [facility] Medical THREE Branch TIMES A DAY NEEDED. gabapentin 2020-10 Yes 300mg Take 300 Un oz 300 mg 0-21 mg by ity of capsule 00:00: mouth 3 (three) Medical times Branch daily. baclofen 10 2020-10 Yes TAKE ONE Un oz mg tablet 0-21 (1) ity of 00:00: TABLET(S) BY [facility] Medical THREE Branch TIMES A DAY NEEDED. metoclopram Yes Univer s steven HCl 10 8-09 ity of mg tablet 00:00: [facility] metoclopram 2020-0 Yes Univer s steven HCl 10 8-09 ity of mg tablet 00:00: [facility] Branch metoclopram 2020-0 Yes Univer s steven HCl 10 8-09 ity of mg tablet 00:00: [facility] Branch metoclopram 2020-0 Yes Univer s steven HCl 10 8-09 ity of mg tablet 00:00: [facility] Branch metoclopram 2020-0 Yes Univer s steven HCl 10 8-09 ity of mg tablet 00:00: [facility] Branch ondansetron 2020-0 Yes [id number] 4mg Take 1 Univers (ZOFRAN 5-30 tablet by ity of ODT) 4 mg 00:00: mouth [place] disintegrat 00 every 8 Medic al ing tablet (eight) Branch hours as needed for Nausea and Vomiting (N/V). ondansetron 2020-0 Yes [id number] 4mg Take 1 Univers (ZOFRAN 5-30 tablet by ity of ODT) 4 mg 00:00: mouth [place] disintegrat 00 every 8 Medic al ing tablet (eight) Branch hours as needed for Nausea and Vomiting (N/V). ondansetron 2020-0 Yes [id number] 4mg Take 1 Univers (ZOFRAN 5-30 tablet by ity of ODT) 4 mg 00:00: mouth [place] disintegrat 00 every 8 Medic al ing tablet (eight) Branch hours as needed for Nausea and Vomiting (N/V). ondansetron Yes [id number] 4mg Take 1 Univers (ZOFRAN 5-30 tablet by ity of ODT) 4 mg 00:00: mouth [place] disintegrat 00 every 8 Medic al ing tablet (eight) Branch hours as needed for Nausea and Vomiting (N/V). ondansetron Yes [id number] 4mg Take 1 Univers (ZOFRAN 5-30 tablet [...] 01:00:00 116 mm[Hg] Univer sity of pressure [facility] [place] Diastolic blood 2021-09-16 01:00:00 53 mm[Hg] [facility] Heart rate 2021-09-16 01:00:00 65 /min [facility] Respiratory rate 2021-09-16 01:00:00 14 /min [facility] Oxygen saturation in 2021-09-16 01:00:00 99 /min [facility] Arterial blood by [facility] Pulse oximetry Branch Body temperature 2021-09-15 21:38:00 36.06 Abeba [facility] Body height 2021-09-15 21:38:00 [facility]3 [facility] Body weight 2021-09-15 21:38:00 86.637 kg [facility] BMI 2021-09-15 21:38:00 28.21 kg/m2 Universi [facility] HEIGHT 2020-11-07 15:01:00 180.3 cm WEIGHT 2020-11-07 15:01:00 81.647 kg Body weight 2022-01-29 05:19:00 107.23 kg [facility] BMI 2022-01-29 05:19:00 32.99 kg/m2 [facility] Systolic blood 2022-01-29 05:12:00 104 mm[Hg] [facility] Diastolic blood 2022-01-29 05:12:00 56 mm[Hg] [facility] Heart rate 2022-01-29 05:12:00 60 /min [facility] Body temperature 2022-01-29 05:12:00 35.61 Abeba [facility] Respiratory rate 2022-01-29 05:12:00 17 /min [facility] Oxygen saturation in 2022-01-29 05:12:00 95 /min [facility] Arterial blood by Medical Ce nter Pulse oximetry Body height 2022-01-25 10:00:00 180.3 cm [facility] Procedures Procedure Date / Time Performing Clinician Source Performed AUTHORIZATION FOR 2023-01-15 05:01:00 Doctor Unassigned, No [facility] Name Medical Branch AUTHORIZATION FOR 2023-01-06 05:01:00 Doctor Unassigned, No [facility] Medical [place] BASIC METABOLIC PANEL 2022-01-26 04:37:00 Candice Justin [facility] CBC W/PLT COUNT & AUTO 2022-01-26 04:37:00 Candice Justin [facility] DIFFERENTIAL Center CBC W/PLT COUNT & AUTO 2022-01-26 04:37:00 Candice Justin [facility] DIFFERENTIAL Center COMPREHENSIVE METABOLIC 2022-01-24 05:29:00 Candice Justin [facility] PANEL Center CBC W/PLT COUNT & AUTO 2022-01-24 05:29:00 Candice Justin [facility] DIFFERENTIAL [place] VALPROIC ACID LEVEL, 2022-01-24 05:29:00 Sebastian Mendez [facility] TOTAL [place] CBC W/PLT COUNT & AUTO 2022-01-24 05:29:00 Candice Justin [facility] DIFFERENTIAL Center CBC W/PLT COUNT & AUTO 2022-01-23 04:34:00 Danyell Longo [facility] DIFFERENTIAL Leia [place] CBC W/PLT COUNT & AUTO 2022-01-23 04:34:00 [facility] METABOLIC PANEL 2022-01-23 04:31:00 Danyell Longo [facility] Leia [place] MAGNESIUM 2022-01-23 04:31:00 Danyell Longo [facility] Leia [place] PHOSPHORUS 2022-01-23 04:31:00 [facility]OV[facility] ([facility] & 2022-01-22 17:41:00 Jaylen Mcnulty [facility] REF LABS) [facility] POCT-GLUCOSE METER 2022-01-22 11:48:[facility]IEWS LEFT 2022-01-22 10:59[facility]SE [facility] 2022-01-22 07:59:00 [facility] EEG 12-26 HR CONTINUOUS 2022-01-22 06:36:[facility] VIDEO Center POCT-GLUCOSE METER 2022-01-22 06:16:00 [facility] CBC W/PLT COUNT & AUTO 2022-01-22 06:09:00 Danyell Longo [facility] BASIC METABOLIC PANEL 2022-01-22 06:09:00 Danyell Longo [facility] Leia [place] MAGNESIUM 2022-01-22 06:09:00 [facility] [place] PHOSPHORUS 2022-01-22 06:09:00 [facility] CBC W/PLT COUNT & AUTO 2022-01-22 06:09:00 [facility] POCT-GLUCOSE METER 2022-01-21 23:47:00 [facility] PO[facility]SE [facility]ER 2022-01-21 16:14:00 [facility] VALPROIC ACID LEVEL, 2022-01-21 14:00:00 Bonnie Duarn [facility] TOTAL Center POCT-GLUCOSE METER 2022-01-21 08:54:00 [facility] EEG 12-26 HR CONTINUOUS 2022-01-21 07:05:00 [facility] MONITORING WITH VIDEO Center CBC W/PLT COUNT & AUTO 2022-01-21 05:14:00 [facility] DIFFERENTIAL Leia [place] BASIC METABOLIC PANEL 2022-01-21 05:14:00 Donta [facility] Leia [place] MAGNESIUM 2022-01-21 05:14:00 Donta [facility] Leia [place] PHOSPHORUS 2022-01-21 05:14:00 [facility] CBC W/PLT COUNT & AUTO 2022-01-21 05:14:00 [facility] DIFFERENTIAL Leia [place] POCT-GLUCOSE METER 2022-01-20 21:55:00 [facility] POCT-GLUCOSE METER 2022-01-20 16:15:00 [facility] MAGNESIUM 2022-01-20 13:10:[address] [facility] POTASSIUM 2022-01-20 13:10:00 [facility] POCT-GLUCOSE METER 2022-01-20 11:00:00 [facility] CBC W/PLT COUNT & AUTO 2022-01-20 04:52:00 Bianca Tse [facility] DIFFERENTIAL Center HIGH SENSITIVITY 2022-01-20 04:52:00 Bianca Tse [facility] TROPONIN I Center LACTIC ACID, VENOUS 2022-01-20 04:52:00 Dedrick Bianca [facility] CBC W/PLT COUNT & AUTO 2022-01-20 04:52:00 Bianca Tse CH, I [facility] DIFFERENTIAL Center COMPREHENSIVE METABOLIC 2022-01-20 04:51:00 Dedrick Bianca [facility] PANEL Center MAGNESIUM 2022-01-20 04:51:00 Bianca Tse [facility] PHOSPHORUS 2022-01-20 04:51:00 Dedrick Bianca [facility] PHENYTOIN LEVEL, TOTAL 2022-01-20 04:51:00 DedrickBianca [facility] PHENYTOIN LEVEL, TOTAL 2022-01-20 04:51:00 Bianca Tse [facility] AND FREE Center VALPROIC ACID LEVEL, 2022-01-20 04:51:00 [facility] VITAMIN B12 AND FOLATE 2022-01-20 04:51:00 Bianca Tse [facility] TSH/FREE T4 IF INDICATED 2022-01-20 04:51:00 [facility] CBC WITH DIFF 2021-09-15 22:38:00 Susanne Roldan [facility] COMP. METABOLIC PANEL 2021-09-15 21:57:00 Susanne Roldan [facility] ([id number]) [facility] VALPROIC ACID, TOTAL 2021-09-15 21:57:00 Susanne Roldan [facility] LACTIC ACID WHOLE BLOOD 2021-09-15 21:54:00 Susanne Roldan [facility] EXTERNAL PROVIDER 2021-09-09 06:01:00 Doctor Unassigned, No [facility] RECORDS Name Medical Branch Plan of Care Planned Activity Planned Date Details Comments Source Future Scheduled 2024-08-25 Lipid panel (procedure) [facility] Test 00:00:00 [code = [id number]] Medical Ce nter Future Scheduled 2024-08-25 Lipid panel (procedure) [facility] Test 00:00:00 [code = [id number]] Medical Ce nter Future Scheduled 2024-08-25 Lipid panel (procedure) [facility] Test 00:00:00 [code = [id number]] Medical Ce nter Future Scheduled 2024-08-25 Lipid panel (procedure) [facility] Test 00:00:00 [code = [id number]] Medical Ce nter Future Scheduled 2024-08-25 Lipid panel (procedure) [facility] Test 00:00:00 [code = [id number]] Medical Ce nter Future Scheduled 2024-08-25 Lipid panel (procedure) [facility] Test 00:00:00 [code = [id number]] Medical Ce nter Future Scheduled 2024-08-25 Lipid panel (procedure) [facility] 00:00:00 [code = 07003251] Medical Ce nter Future Scheduled 2024-08-25 Lipid panel (procedure) [facility] 00:00:00 [code = [id number]] Medical Ce nter Future Scheduled 2023-06-18 Influenza Vaccine (#1) [facility] [code = Influenza Vaccine Me dical Center (#1)] Future Scheduled 2023-06-18 Influenza Vaccine (#1) [facility] 00:[facility]:00 [code = Influenza Vaccine Me dical Center (#1)] Future Scheduled 2022-06-18 INFLUENZA VACCINE (#1) [facility] 00:[facility]:00 [code = INFLUENZA VACCINE Me dical Center (#1)] Future Scheduled 2022-06-18 INFLUENZA VACCINE (#1) [facility] 00:[facility]:00 [code = INFLUENZA VACCINE Me dical Center (#1)] Future Scheduled 2022-06-18 INFLUENZA VACCINE (#1) [facility] 00:[facility]:00 [code = INFLUENZA VACCINE Me dical Center (#1)] Future Scheduled 2022-06-18 INFLUENZA VACCINE (#1) [facility] 00:[facility]:00 [code = INFLUENZA VACCINE Me dical Center (#1)] Future Scheduled 2022-06-18 INFLUENZA VACCINE (#1) [facility] 00:[facility]:00 [code = INFLUENZA VACCINE Me dical Center (#1)] Future Scheduled 2022-06-18 INFLUENZA VACCINE (#1) [facility] 00:[facility]:00 [code = INFLUENZA VACCINE Me dical Center (#1)] Future Scheduled 2021-11-[address] [facility] 00:00:00 Counseling and Screening Med ical Center (12+) [code = Tobacco Cessation Counseling and Screening (12+)] Future Scheduled 2021-11-[address] [facility] 00:00:00 Counseling and Screening Med ical Center (12+) [code = Tobacco Cessation Counseling and Screening (12+)] Future Scheduled 2021-11-[address] [facility] 00:00:00 Counseling and Screening Med ical Center (12+) [code = Tobacco Cessation Counseling and Screening (12+)] Future Scheduled 2021-11-[address] [facility] 00:00:00 Counseling and Screening Med ical Center (12+) [code = Tobacco Cessation Counseling and Screening (12+)] Future Scheduled 2021-11-[address] [facility] 00:00:00 Counseling and Screening Med ical Center (12+) [code = Tobacco Cessation Counseling and Screening (12+)] Future Scheduled 2021-11-[address] [facility] 00:00:00 Counseling and Screening Med ical Center (12+) [code = Tobacco Cessation Counseling and Screening (12+)] Future Scheduled 1998 DTAP/TDAP/TD VACCINES ([address] [facility] 00:00:00 - Tdap) [code = Medical Cent er DTAP/TDAP/TD VACCINES (1 - Tdap)] Future Scheduled 1998 DTAP/TDAP/TD VACCINES ([address] [facility] 00:00:00 - Tdap) [code = Medical Cent er DTAP/TDAP/TD VACCINES (1 - Tdap)] Future Scheduled 1998 DTAP/TDAP/TD VACCINES ([address] [facility] 00:00:00 - Tdap) [code = Medical Cent er DTAP/TDAP/TD VACCINES (1 - Tdap)] Future Scheduled 1998 DTAP/TDAP/TD VACCINES ([address] [facility] 00:00:00 - Tdap) [code = Medical Cent er DTAP/TDAP/TD VACCINES (1 - Tdap)] Future Scheduled 1998 DTAP/TDAP/TD VACCINES ([address] [facility] 00:00:00 - Tdap) [code = Medical Cent er DTAP/TDAP/TD VACCINES (1 - Tdap)] Future Scheduled 1998 DTAP/TDAP/TD VACCINES ([address] [facility] 00:00:00 - Tdap) [code = Medical Cent er DTAP/TDAP/TD VACCINES (1 - Tdap)] Future Scheduled 1998 DTAP/TDAP/TD VACCINES ([address] [facility] 00:00:00 - Tdap) [code = Medical Cent er DTAP/TDAP/TD VACCINES (1 - Tdap)] Future Scheduled 1998 DTAP/TDAP/TD VACCINES ([address] [facility] 00:00:00 - Tdap) [code = Medical Cent er DTAP/TDAP/TD VACCINES (1 - Tdap)] Future Scheduled [...] HEPATITIS C Medical Center SCREENING] Future Scheduled [address] [facility] 00:[facility]:00 virus screening Medical Cent er (procedure) [code = [id number]] Future Scheduled [address] [facility] 00:00:00 virus screening Medical Cent er (procedure) [code = [id number]] Future Scheduled 1985 PNEUMOCOCCAL VACCINE 0-[address] [facility] 00:00:00 YRS (1 - PCV) [code = Medica l Center PNEUMOCOCCAL VACCINE 0-64 YRS (1 - PCV)] Future Scheduled 1985 PNEUMOCOCCAL VACCINE 0-[address] [facility] 00:00:00 YRS (1 - PCV) [code = Medica l Center PNEUMOCOCCAL VACCINE 0-64 YRS (1 - PCV)] Future Scheduled 1985 PNEUMOCOCCAL VACCINE 0-[address] [facility] 00:00:00 YRS (1 - PCV) [code = Medica l Center PNEUMOCOCCAL VACCINE 0-64 YRS (1 - PCV)] Future Scheduled 1985 PNEUMOCOCCAL VACCINE 0-[address] [facility] 00:00:00 YRS (1 - PCV) [code = Medica l Center PNEUMOCOCCAL VACCINE 0-64 YRS (1 - PCV)] Future Scheduled 1985 PNEUMOCOCCAL VACCINE 0-[address] [facility] 00:00:00 YRS (1 - PCV) [code = Medica l Center PNEUMOCOCCAL VACCINE 0-64 YRS (1 - PCV)] Future Scheduled 1985 PNEUMOCOCCAL VACCINE 0-[address] [facility] 00:00:00 YRS (1 - PCV) [code = Medica l Center PNEUMOCOCCAL VACCINE 0-64 YRS (1 - PCV)] Future Scheduled 1985 Pneumococcal Vaccine: [facility] 00:[facility]:00 0-64 Years (1 - PCV) Medical Center [code = Pneumococcal Vaccine: 0-64 Years (1 - PCV)] Future Scheduled 1985 Pneumococcal Vaccine: [facility] 00:[facility]:00 0-64 Years (1 - PCV) Medical Center [code = Pneumococcal Vaccine: 0-64 Years (1 - PCV)] Future Scheduled 1979 COVID-19 VACCINE (#1) [facility] [code = COVID-19 VACCINE Med ical Center (#1)] Future Scheduled 1979 COVID-19 VACCINE (#1) [facility] [code = COVID-19 VACCINE Med ical Center (#1)] Future Scheduled 1979 COVID-19 VACCINE (#1) [facility] 00:[facility]:00 [code = COVID-19 VACCINE Med ical Center (#1)] Future Scheduled 1979 COVID-19 VACCINE (#1) [facility] [code = COVID-19 VACCINE Med ical Center (#1)] Future Scheduled 1979 COVID-19 VACCINE (#1) [facility] 00:[facility]:00 [code = COVID-19 VACCINE Med ical Center (#1)] Future Scheduled 1979 COVID-19 VACCINE (#1) [facility] 00:[facility]:00 [code = COVID-19 VACCINE Med ical Center (#1)] Future Scheduled 1979 COVID-19 VACCINE (#1) [facility] 00:[facility] [code = COVID-19 VACCINE Med ical Center (#1)] Future Scheduled 1979 COVID-19 VACCINE (#1) [facility] 00:[facility] [code = COVID-19 VACCINE Med ical Center (#1)] Encounters Start End Encounter Admission Attending Care Care Encounter Source Date/Time Date/Time Type Type Clinicians Facility Department ID 2023-01-07 Outpatient [facility] [id number] [place] 11:26:56 [id number] [facility] 2021-08-17 Emergency [facility] [id number] Univers 22:09:39 ity of [facility] [place] 2021-07-23 Inpatient ER JOSHUA, [facility] Neurology [id number] [facility] [address] 07:45:15 [facility] 2020-11-07 Inpatient [facility] Internal [id number] [facility] 07:52:00 Charles NELSON 2020-07-08 Inpatient ER JOSHUA, [facility] Neurology [id number] [facility] 08:39:03 [facility] 2023-01-15 2023-01-15 Orders Doctor RODRIGUEZ [id number] Univers 00:00:00 00:00:00 Only Unassigned, PARVIN 350.1.13.10 ity of [place] [facility] 4.2.7.2.686 [place] as [phone] [address] 2023-01-06 2023-01-06 Orders Doctor JENNIFER Mata.2.840.114 [id number] [facility] 00:00:00 00:00:00 Only Unassigned, PARVIN 350.1.13.10 ity of [facility] 4.2.7.2.686 [facility] [id number] [place] [address] [address] 2022-01-23 2022-01-[address] [facility] [id number] 11:27:00 11:25:00 Encounter HalimaVenitak brad [facility] 2022-01-23 2022-01-29 Inpatient [facility] PM\\T\\R [id number] SLE 11:27:00 11:25:00 CANDICE COYLE 2022-01-19 2022-01-23 [facility] Hayes Freitas [facility] [id number] [facility] 22:47:00 10:53:00 Encounter Hanane Baker [facility] 2022-01-19 2022-01-23 Inpatient [facility] [id number] SLE 22:47:00 10:53:00 [facility] 2022-01-23 2022-01-23 Travel [facility] [id number] [facility] 00:[facility]:00 00:00:00 [facility] 2022-01-19 2022-01-19 Travel [facility] [id number] [facility] [address] 00:00:00 00:00:00 [facility] 2022-01-15 2022-01-[address] [facility] [id number] [facility] 00[facility]:00 00:00:00 ion [facility] 2021-09-15 2021-09-15 Emergency [facility] [id number] Univers 15:37:00 20:00:00 SUSANNE velásquez [facility] 2021-09-15 2021-09-15 Emergency Jamar [facility] 1.2.840.114 [id number] Univers 15:37:00 20:00:00 Susanne FAN 350.1.13.10 ity of [place] 4.2.7.2.686 [facility] [phone] [facility] [address] 2021-09-09 2021-09-09 Orders Doctor JENNIFER 1.2.840.114 [id number] Univers 00:00:00 00:00:00 Only Unassigned, PARVIN 350.1.13.10 [facility] 4.2.7.2.686 Diaz as [phone] [facility] 009 [address] 2021-08-28 2021-08-28 Transition RUY Jalloh 1.2.840.114 [id number] Univers 00:00:00 00:00:00 of Care Barbara MCCAULEY 350.1.13.10 i ty of [place] 4.2.7.2.686 [facility] [phone] [facility] 403 [address] 2021-08-22 2021-08-27 Inpatient X [facility] [id number] Univers 14:14:00 18:00:00 [facility] 2021-08-22 2021-08-27 [facility] Jose Day 1.2.840.1 14 [id number] Univers 14:14:00 18:00:00 Encounter Abdiaziz Jaimes 350.1.13.10 ity [facility] 4.2.7.2.686 [place] [id number] [facility] [address] [place] 2021-08-22 2021-08-27 Inpatient X [facility] [id number] Univers 14:14:00 18:00:00 [facility] 2021-08-26 2021-08-26 [facility] 1.2.037.214 [id number] Univers 07:30:00 08:12:00 Kirill MARCANO 350.1.13.10 ity of [place] 4.2.7.2.686 Diaz as BLDG [id number] [facility] 020 [address] 2021-03-16 2021-03-16 Emergency [facility] [id number] 01:37:00 03:38:00 Dee Fan 350.1.13.10 [place] 4.2.7.2.686 [place] [id number] 084 2021-03-16 2021-03-16 Emergency [facility], [facility] 1.2.116.126 [id number] [facility] 01:37:00 03:38:00 Dee Fan 350.1.13.10 ity of [place] [id number] [facility] [address] [place] 2020-12-12 2020-12-12 Orders Doctor JENNIFER 1.2.840.114 [id number] 00:00:00 00:00:00 Only Unassigned, PARVIN 350.1.13.10 [facility] 4.2.7.2.686 [id number] 009 2020-12-12 2020-12-12 Orders Doctor JENNIFER 1.2.840.114 [id number] [facility] 00:00:00 00:00:00 Only Unassigned, PARVIN 350.1.13.10 ity of [place] [facility] 4.2.7.2.686 [place] as [phone] [address] 2020-11-30 2020-11-30 Telephone [facility] 1.2.840.114 [id number] 00:00:00 00:00:00 Boo Fan 350.1.13.10 [place] 4.2.7.2.686 Professio [id number] [address] 2020-11-30 2020-11-30 Telephone Blayne [facility] 1.2.840.114 [id number] [facility] 00:00:00 00:00:00 Boo Fan 350.1.13.10 ity of [place] [phone] Ms dical [address] 2020-10-31 2020-10-31 Telephone Blayne [facility] 1.2.840.114 [id number] 00:00:00 00:00:00 Boo Fan 350.1.13.10 [place] 4.2.7.2.686 Professio [id number] [address] 2020-10-31 2020-10-31 Telephone [facility] 1.2.840.114 [id number] Univers 00:00:00 00:00:00 Boo Fan 350.1.13.10 ity of [place] [phone] Ms dical nal 092 [facility] 2020-09-06 2020-09-06 Orders Doctor RODRIGUEZ 1.2.840.114 [id number] 00:00:00 00:00:00 Only Unassigned, PARVIN 350.1.13.10 [facility] 4.2.7.2.686 [id number] 009 2020-09-06 2020-09-06 Orders Doctor JENNIFER 1.2.840.114 [id number] Univers 00:00:00 00:00:00 Only Unassigned, PARVIN 350.1.13.10 ity of [place] [facility] 4.2.7.2.686 Diaz as [id number] [address] 2020-08-18 2020-08-18 Orders Doctor RODRIGUEZ 1.2.840.114 [id number] 00:00:00 00:00:00 Only Unassigned, PARVIN 350.1.13.10 [facility] 4.2.7.2.686 [id number] 2020-08-18 2020-08-18 Orders Doctor RODRIGUEZ 1.2.840.114 [id number] Univers 00:00:00 00:00:00 Only Unassigned, PARVIN 350.1.13.10 ity of [place] [facility] 4.2.7.2.686 [place] as [id number] [address] 2020-08-06 2020-08-14 Office [facility] 1.2.840.114 [id number] Univers 08:52:45 13:22:47 Visit Boo Fan 350.1.13.10 ity of [place] 4.2.7.2.686 [place] [phone] Ms dical nal 092 [facility] 2020-08-06 2020-08-14 [facility] 1.2.840.114 [id number] 08:52:45 13:22:47 Visit Boo Fan 350.1.13.10 [place] 4.2.7.2.686 Professio [phone] nal [address] [place] [address] 2020-08-13 2020-08-13 Telephone Blayne [facility] 1.2.840.114 [id number] Univers 00:00:00 00:00:00 Boo Fan 350.1.13.10 ity of [place] [phone] Ms dical [address] 2020-08-06 2020-08-06 Outpatient R BOO DONG [facility] [id number] [facility] 08:40:00 08:40:00 BOO DONG ity of [facility] 2020-08-06 2020-08-06 Orders Doctor JENNIFER 1.2.840.114 [id number] Univers 00:00:00 00:00:00 Only Unassigned, PARVIN 350.1.13.10 ity of [place] [facility] 4.2.7.2.686 [place] as [id number] [address] Results Test Description Test Time Test [...] NOT 1092) ACCURATE CRE ATININE CLEARANCE IN LA EDICTING GLOMERULAR FILT RATION RATE. ESTIMATED GFR IS NOT APPLICABLE FOR DIALYSIS PATIENTS. CBC W/PLT COUNT & AUTO [id number] 05:30:33 Test Item Value Reference Range Interpretation [...] (test code = 2801) VALPROIC ACID LEVEL, [id number] 09:06:07 Test Item Value Reference Range Interpretation Comments VALPROIC ACID TOTAL (BEAKER) (test 48 ug/mL 50-100 L code = 924) Therapeutic range for some clinical conditions may be >100 ug/mLOperator JARET MOSQUEDA MCOMPREHENSIVE METABOLIC [id number] 06:29:58 Test Item Value Reference Range Interpretation [...] PATIEN TS. CBC W/PLT COUNT & AUTO [id number] 06:03:49 Test Item Value Reference Range Interpretation [...] (BEAKER) (test code = 2801) BASIC METABOLIC [id number] 05:29:09 Test Item Value Reference Range Interpretation [...] S NOT APPLICABLE FOR DIALYSIS PATIEN TS. Heavy Equipment Supervisor ID - ISAURA [id number] 05:29:09 Test Item Value Reference Range Interpretation Comments MAGNESIUM (BEAKER) (test code = 1.8 mg/dL 1.6-2.6 627) Heavy Equipment Supervisor ID - ISAURA [id number] 05:29:09 Test Item Value Reference Range Interpretation Comments PHOSPHORUS (BEAKER) (test code = 3.7 mg/dL 2.3-4.7 604) Heavy Equipment Supervisor ID - ISAURA LCBC W/PLT COUNT & AUTO [id number] 05:02:50 Test Item Value Reference Range Interpretation [...] Comments SARS-COV2/RT-PCR (test Negative Negative code = 42032-4) TUCKER (test code = TUCKER) Negative result [...] Healthcare Providers:https://www.bri rice/sis/RT SARS-CoV-2 HCP Fact Sheet 51-465402.pdf Fact Sheet for Healthcare Patients:https://www.beto stroud/sis/RT SARS-CoV-2 Patient Fact Sheet EN 51-790804S0.pdf Lab Interpretation Normal (test code = 47149-7) [facility]23 01:04:16 Test Item Value Reference Range Interpretation Comments SARS-COV2/RT-PCR (test Negative Negative code = 10061-9) TUCKER (test code = TUCKER) Negative result [...] SARS-CoV-2 assay. Fact Sheet for Healthcare Providers:https://www.bri uriberiley/sis/RT SARS-CoV-2 HCP Fact Sheet 51-092439.pdf Fact Sheet for Healthcare Patients:https://www.beto skinnerClarimedix/sis/RT SARS-CoV-2 Patient Fact Sheet EN 51-159764U7.pdf Lab Interpretation Normal (test code = 61949-6) [facility]2022-01-23 01:04:16 Test Item Value Reference Range Interpretation Comments SARS-COV2/RT-PCR (test Negative Negative code = 85991-8) TUCKER (test code = TUCKER) Negative result [...] Healthcare Providers:https://www.bri rice/sis/RT SARS-CoV-2 HCP Fact Sheet 51-217560.pdf Fact Sheet for Healthcare Patients:https://www.beto skinner.[employer]/sis/RT SARS-CoV-2 Patient Fact Sheet EN 51-070311E5.pdf Lab Interpretation Normal (test code = 20857-0) [facility]2022-01-23 01:04:16 Test Item Value Reference Range Interpretation Comments SARS-COV2/RT-PCR (test Negative Negative code = 53593-2) TUCKER (test code = TUCKER) Negative result [...] Healthcare Providers:https://www.bri rice/sis/RT SARS-CoV-2 HCP Fact Sheet 51-836191.pdf Fact Sheet for Healthcare Patients:https://www.Likeability/sis/RT SARS-CoV-2 Patient Fact Sheet EN 51-956248P1.pdf Lab Interpretation Normal (test code = 93923-1) [facility] ONLY)2022-01-23 01:04:16 Test Item Value Reference Range Interpretation Comments SARS-COV2/RT-PCR (test Negative Negative code = 72333-3) TUCKER (test code = TUCKER) Negative result [...] Healthcare Providers:https://www.bri rice/sis/RT SARS-CoV-2 HCP Fact Sheet 51-978436.pdf Fact Sheet for Healthcare Patients:https://www.beto Evolution RoboticsmakennaClarimedix/sis/RT SARS-CoV-2 Patient Fact Sheet EN 51-076960B0.pdf Lab Interpretation Normal (test code = 61622-9) [facility]2022-01-23 01:04:16 Test Item Value Reference Range Interpretation Comments SARS-COV2/RT-PCR (test Negative Negative code = 08857-7) TUCKER (test code = TUCKER) Negative result [...] the Act. Testing was performed using the [place] SPARK SARS-CoV-2 assay. Fact Sheet for Healthcare Providers:https://www.bri rice/sis/RT SARS-CoV-2 HCP Fact Sheet 51-826863.pdf Fact Sheet for Healthcare Patients:https://www.Likeability/sis/RT SARS-CoV-2 Patient Fact Sheet EN 51-873428S4.pdf Lab Interpretation Normal (test code = 58283-4) [facility])2022-01-23 01:04:16 Test Item Value Reference Range Interpretation Comments SARS-COV2/RT-PCR (test code = Negative Negative 0419860) Negative result for this test determines that [...] 564(g) of the Act.Testing was performed using [employer] SARS-CoV-2 assay.Fact Sheet for Healthcare Providers:https://www.FamilyFinds.riley/sis/RT SARS-CoV-2 HCP Fact Sheet 51- 393455.pdfFact Sheet for Healthcare Patients:https://www.FamilyFinds.riley/sis/RT SARS-CoV-2 Patient Fact Sheet EN 51-558393U6.pdfPOC-Glucose [id number] 12:00:30 Test Item Value Reference Range Interpretation Comments POC-Glucose Meter (test 111 mg/dL 70-110 H : TE STED AT [facility] code = 1538) [address] [place] [address], [facility] 30: Heavy Equipment Supervisor/Techni melvin ID = [id number] for AKINSONU, BEATRIZ Lab Interpretation (test Abnormal code = 81849-9) [facility] [id number] 12:00:30 Test Item Value Reference Range Interpretation Comments POC-Glucose Meter (test 111 mg/dL 70-110 H : TE STED AT [facility] code = 1538) [address] [place] [address], [facility] 30: Heavy Equipment Supervisor/Techni melvin ID = [id number] for AKINSONU, BEATRIZ Lab Interpretation (test Abnormal code = 61018-5) [facility]-Glucose [id number] 12:00:30 Test Item Value Reference Range Interpretation Comments POC-Glucose Meter (test 111 mg/dL 70-110 H : TE STED AT [facility] code = 1538) [address] [place] [address], 770 30: Heavy Equipment Supervisor/Techni melvin ID = [id number] for AKINSONU, BEATRIZ Lab Interpretation (test Abnormal code = 74427-6) [facility]-Glucose [id number] 12:00:30 Test Item Value Reference Range Interpretation Comments POC-Glucose Meter (test 111 mg/dL 70-110 H : TE STED AT [facility] code = 1538) [address] [place] [address], 770 30: Heavy Equipment Supervisor/Techni melvin ID = [id number] for AKINSONU, BEATRIZ Lab Interpretation (test Abnormal code = 55498-1) [facility]-Glucose [id number] 12:00:30 Test Item Value Reference Range Interpretation Comments POC-Glucose Meter (test 111 mg/dL 70-110 H : TE STED AT [facility] code = 1538) [address] [place] [address], 770 30: Heavy Equipment Supervisor/Techni melvin ID = [id number] for AKINSONU, BEATRIZ Lab Interpretation (test Abnormal code = 23274-1) [facility]-Glucose [id number] 12:00:30 Test Item Value Reference Range Interpretation Comments POC-Glucose Meter (test 111 mg/dL 70-110 H : TE STED AT [facility] code = 1538) [address] [place] [address], 770 30: Heavy Equipment Supervisor/Techni melvin ID = [id number] for AKINSONU, BEATRIZ Lab Interpretation (test Abnormal code = 84454-7) [facility]-GLUCOSE [id number] 12:00:30 Test Item Value Reference Range Interpretation Comments POC-GLUCOSE METER 111 mg/dL 70-110 H : TESTED A T [facility] 6720 (BEAKER) (test code = [facility] Mainor [facility], 1538) [address]: Heavy Equipment Supervisor/Techni melvin ID = [id number] for [place] INSONU, BEATRIZ RAD, HAND, 3 VIEWS, [id number] 11:54:00Reason for exam:->pain after seizure, eval for trauma/fracture [facility] : 1980 Sex: MFINAL REPORT EXAMINATION: RAD, HAND, 3 VIEWS, LEFT INDICATION: Pain, seizure COMPARISON: None FINDINGS: Radiographs of the left hand demonstrate no acute fracture or dislocation. Alignment is anatomic. Unremarkable soft tissues. IMPRESSION: No acute osseous injury Signed: Gaye ZuritaMDReport Verified Date/Time: 01/22/2022 11:54:14 POCT-GLUCOSE [id number] 08:11:07 Test Item Value Reference Range Interpretation Comments POC-GLUCOSE METER 76 mg/dL 70-110 : TESTED A T [facility] 6720 (BEAKER) (test code = YAYA GALDAME[place], 1538) [address]11: Heavy Equipment Supervisor/Techni melvin ID = [id number] for BEATRIZ VILLALTA [id number] 06:46:53 Test Item Value Reference Range Interpretation Comments MAGNESIUM (BEAKER) (test code = 1.9 mg/dL 1.6-2.6 627) Heavy Equipment Supervisor ID - [id number] 06:46:53 Test Item Value Reference Range Interpretation Comments PHOSPHORUS (BEAKER) (test code = 3.6 mg/dL 2.3-4.7 604) Heavy Equipment Supervisor ID - BSBASIC METABOLIC [id number] 06:46:52 Test Item Value Reference Range Interpretation [...] S NOT APPLICABLE FOR DIALYSIS PATIEN TS. Heavy Equipment Supervisor ID - BSCBC W/PLT COUNT & AUTO [id number] 06:45:34 Test Item Value Reference Range Interpretation [...] PERCENT (BEAKER) (test code = 2801) POCT-GLUCOSE [id number] 06:27:54 Test Item Value Reference Range Interpretation Comments POC-GLUCOSE METER 101 mg/dL 70-110 : TESTED A T [facility] 6720 (BEAKER) (test code = [facility], 1538) 20740: Heavy Equipment Supervisor/Techni melvin ID = [id number] for Alka bauer Triwanda POCT-GLUCOSE [id number] 23:58:55 Test Item Value Reference Range Interpretation Comments POC-GLUCOSE METER 99 mg/dL 70-110 : TESTED A T [facility] 6720 (BEAKER) (test code = [facility], 1538) 12849: Heavy Equipment Supervisor/Techni melvin ID = [id number] for Jennifer gracia Triwanda POCT-GLUCOSE [id number] 16:25:08 Test Item Value Reference Range Interpretation Comments POC-GLUCOSE METER 95 mg/dL 70-110 : TESTED A T [facility] 6720 (BEAKER) (test code = [facility], 1538) 43075: Heavy Equipment Supervisor/Techni melvin ID = [id number] for Magda on, [employer] VALPROIC ACID LEVEL, [id number] 14:53:33 Test Item Value Reference Range Interpretation Comments VALPROIC ACID TOTAL (BEAKER) (test 36 ug/mL 50-100 L code = 924) Therapeutic range for some clinical conditions may be >100 ug/mLOperator ID - PIAYA LPOCT-GLUCOSE [id number] 09:05:57 Test Item Value Reference Range Interpretation Comments POC-GLUCOSE METER 92 mg/dL 70-110 : TESTED A T [facility] 6720 (BEAKER) (test code = YAYA G[place], 1538) [address]: Heavy Equipment Supervisor/Techni melvin ID = [id number] for [place], [employer] [id number] 07:25:22 Test Item Value Reference Range Interpretation Comments PHOSPHORUS (BEAKER) (test code = 3.5 mg/dL 2.3-4.7 604) Heavy Equipment Supervisor ID - ISAURA LBASIC METABOLIC [id number] 07:25:21 Test Item Value Reference Range Interpretation [...] S NOT APPLICABLE FOR DIALYSIS PATIEN TS. Heavy Equipment Supervisor ID - ISAURA [id number] 07:25:21 Test Item Value Reference Range Interpretation Comments MAGNESIUM (BEAKER) (test code = 2.0 mg/dL 1.6-2.6 627) Heavy Equipment Supervisor ID - ISAURA LCBC W/PLT COUNT & AUTO [id number] 06:33:11 Test Item Value Reference Range Interpretation [...] PERCENT (BEAKER) (test code = 2801) POCT-GLUCOSE [id number] 22:07:10 Test Item Value Reference Range Interpretation Comments POC-GLUCOSE METER 81 mg/dL 70-110 : TESTED A T [facility] 6720 (BEAKER) (test code = [facility], 1538) [address]: Heavy Equipment Supervisor/Techni melvin ID = [id number] for Marlen Singletary POCT-GLUCOSE [id number] 16:27:10 Test Item Value Reference Range Interpretation Comments POC-GLUCOSE METER 110 mg/dL 70-110 : TESTED A T [facility] 6720 (BEAKER) (test code = [facility], 1538) [address]: Heavy Equipment Supervisor/Techni melvin ID = [id number] for [employer] [id number] 14:01:40 Test Item Value Reference Range Interpretation Comments POTASSIUM (BEAKER) (test code = 4.3 meq/L 3.5-5.1 379) Heavy Equipment Supervisor ID - ISAURA [id number] 14:01:39 Test Item Value Reference Range Interpretation Comments MAGNESIUM (BEAKER) (test code = 2.4 mg/dL 1.6-2.6 627) Heavy Equipment Supervisor ID - ISAURA LPOCT-GLUCOSE [id number] 11:12:06 Test Item Value Reference Range Interpretation Comments POC-GLUCOSE METER 97 mg/dL 70-110 : TESTED A T [facility] 6720 (BEAKER) (test code = [facility], 1538) [address]: Heavy Equipment Supervisor/Techni melvin ID = [id number] for Genesis Martinez CBC W/PLT COUNT & AUTO [id number] 06:11:05 Test Item Value Reference Range Interpretation [...] (test code = 2801) VITAMIN B12 AND [id number] 06:06:00 Test Item Value Reference Range Interpretation Comments VITAMIN B12 (BEAKER) 608 pg/mL 213-816 (test code = 774) FOLATE (BEAKER) 7.90 ng/mL See_Comment [Automated message] (test code = 362) The system which generated this result transmitted ref erence range: >=7.00. The reference range was not used to interpr et this result as normal/abnormal . Heavy Equipment Supervisor ID - PIAYA LTSH/FREE T4 IF [id number] 06:05:58 Test Item Value Reference Range Interpretation Comments THYROID STIMULATING HORMONE 1.956 uIU/mL 0.350-4.940 (BEAKER) (test code = 772) Heavy Equipment Supervisor ID - PIAYA [id number] 06:02:15 Test Item Value Reference Range Interpretation Comments PHOSPHORUS (BEAKER) (test code = 3.3 mg/dL 2.3-4.7 604) Heavy Equipment Supervisor ID - [id number] 06:02:14 Test Item Value Reference Range Interpretation Comments MAGNESIUM (BEAKER) (test code = 1.8 mg/dL 1.6-2.6 627) Heavy Equipment Supervisor ID - DBCOMPREHENSIVE METABOLIC [id number] 06:02:14 Test Item Value Reference Range Interpretation [...] S NOT APPLICABLE FOR DIALYSIS PATIEN TS. Heavy Equipment Supervisor ID - DBHIGH SENSITIVITY TROPONIN [id number] 05:37:42 Test Item Value Reference Range Interpretation Comments HIGH SENSITIVITY < pg/ml See_Comment [Automated message] TROPONIN I (test code = The system which 8535692) generated this result transmitted ref erence range: <=35. Th e reference range was not used to interpr et this result as normal/abnormal . Heavy Equipment Supervisor ID - DBThe SENIOR MARKETING MANAGER STAT High Sensitivity Troponin-I results should be used in conjunctionwith other diagnostic information such as ECG, clinical observations and information, and patient symptoms to aid in the diagnosis of MS.PHENYTOIN LEVEL, [id number] 05:37:18 Test Item Value Reference Range Interpretation Comments PHENYTOIN (DILANTIN) (BEAKER) 13.3 ug/mL 10.0-20.0 (test code = 605) Heavy Equipment Supervisor ID - PIAYA LVALPROIC ACID LEVEL, [id number] 05:36:59 Test Item Value Reference Range Interpretation Comments VALPROIC ACID TOTAL (BEAKER) (test 53 ug/mL 50-100 code = 924) Therapeutic range for some clinical conditions may be >100 ug/mLOperator ID - PIAYA LLACTIC ACID, [id number] 05:30:37 Test Item Value Reference Range Interpretation Comments LACTATE BLOOD VENOUS (2) (BEAKER) 0.83 mmol/L 0.50-2.20 (test code = 2872) Heavy Equipment Supervisor ID - DBVALPROIC ACID, [id number] 23:29:56 Test Item Value Reference Range Interpretation Comments VALPROIC A (test code = 54 ug/mL 50-100 6654293955) TUCKER (test code = TUCKER) Toxic Range: ?Greater than 100 ug/mL Lab Interpretation (test Normal code = 50486-2) [facility] WITH [id number] 22:55:09 Test Item Value Reference Range Interpretation Comments WBC (test code = See_Comment [Automated 4889-2) message] The sy stem which generated this [...] RDW-SD (test code = 45.4 fL 38.5-51.6 61208-4) RDW-CV (test code = 14.1 % 12.1-15.4 788-0) PLT (test code = See_Comment H [Automated 777-3) message] The sy stem which generated this result transmitted reference range : 150 - 328 10*3/ ?L. The reference r gerardo was not used to interpret this result as normal/abnormal . MPV (test code = 9.5 fL 9.8-13.0 L 09924-2) NRBC/100 WBC (test See_Comment [Automat ed code = 7724333470) message] The system which generated this result transmitted reference range : 0.0 - 10.0 /100 WBCs. The refer ence range was not u sed to interpret th is result as normal/abnormal . NRBC x10^3 (test code <0.01 See_Comment [Auto mated = 9010024350) message] The s ystem which generated this result transmitted reference range : 10*3/?L. The reference range was not used to interpret this result as normal/abnormal . GRAN MAT (NEUT) % 39.7 % (test code = 770-8) IMM GRAN % (test code 0.70 % = 3724503368) LYMPH % (test code = 41.5 % 736-9) MONO % (test code = 15.1 % 5905-5) EOS % (test code = 2.5 % 713-8) BASO % (test code = 0.5 % 706-2) GRAN MAT x10^3(ANC) 2.25 10*3/uL 1.99-6.95 (test code = 4012336492) IMM GRAN x10^3 (test 0.04 10*3/uL 0.00-0.06 code = 5450667234) LYMPH x10^3 (test code 2.36 10*3/uL 1.09-3.23 = 731-0) MONO x10^3 (test code 0.86 10*3/uL 0.36-1.02 = 742-7) EOS x10^3 (test code = 0.14 10*3/uL 0.06-0.53 711-2) BASO x10^3 (test code 0.03 10*3/uL 0.01-0.09 = 704-7) Lab Interpretation Abnormal (test code = 70531-7) [facility] ([id number][facility]20[facility]-15 22:28:20 Test Item Value Reference Range Interpretation Comments NA (test code = 136 mmol/L 135-145 5082951116) K (test code = 4.3 mmol/L 3.5-5.0 4394935506) CL (test code = 108 mmol/L 98-108 1119642526) CO2 TOTAL (test code = 26 mmol/L 23-31 0676280069) AGAP (test code = 2-16 9511200595) BUN (test code = 16 mg/dL 7-23 5931310627) GLUCOSE (test code = 86 mg/dL 70-110 7339625898) CREATININE (test code = 0.69 mg/dL 0.60-1.25 1210241103) TOTAL BILI (test code = 0.2 mg/dL 0.1-1.1 5886256455) CALCIUM (test code = 8.4 mg/dL 8.6-10.6 L 1721905244) T PROTEIN (test code = 6.0 g/dL 6.3-8.2 L 5826699861) ALBUMIN (test code = 3.4 g/dL 3.5-5.0 L 1195465883) ALK PHOS (test code = 70 U/L 34-122 9173079124) ALTv (test code = 14 U/L 5-50 1742-6) AST(SGOT) (test code = 23 U/L 13-40 2210702742) eGFR (test code = mL/min/1.73m2 4764686987) TUCKER (test code = TUCKER) Association of [...] tests). Lab Interpretation Abnormal (test code = 94174-7) [facility] [id number] 22:01:16 Test Item Value Reference Range Interpretation Comments LACTIC ACID (test code = 1.74 mmol/L 0.50-2.20 1531616844) Lab Interpretation (test code = Normal 94087-5) [facility] [id number] 14:50:00Surgical Pathology Report Case: [id number] Authorizing Provider: Kimberly Mann Collected: 11/09/2020 08:59 AM MD Светлана Ordering Location: [address] Received: 11/11/2020 08:24 AM Service Pathologist: Anahi León MD Specimen: Gallbladder This amendment is issued to correct a transcriptional error. A. GALLBLADDER, CHOLECYSTECTOMY: - CHRONIC CHOLECYSTITIS. Signing Pathologist Direct Phone Line: [phone] electronically signed by Anahi León MD on 11/13/2020 at 2:50 PM 34472Oevltbnau painGallbladderA. Received fresh, labeled with the patient's [...] ranges 0.1-0.3 cm. No gross lesions areidentified. Vocational Examiner sections are submitted.Section codeA1: Cystic duct margin (blue), en faceA2: Gallbladder wallChelsea CHRISTIAN Buitrago PA (ASCP)cmPerformed.[facility], Department of Pathology, [address] [place] [address], QcrnocSharp [facility], Department of Pathology, [address] [place] [address], XdfxtuSharp [facility], Department of Pathology, [address] [place] [address], EWWJFS EXAM 2020-11-13 11:14:00Surgical Pathology Report Case: [id number] Authorizing Provider: Eleno Keane MD Collected: 11/07/2020 03:21 PM Ordering Location: [address] Received: 11/08/2020 08:02 AM Service P [...] OR MALIGNANCY Signing Pathologist Direct Phone Line: [phone] signed by Yadira Gardner MD on 11/08/2020 at 3:25 PMB. GMS stain is pending and will be reported in an addendum.[id number] obstructionA. DuodenumB. Esophagus, distalA. Received in formalin [...] submitted in toto in B1.CHRISTIAN Monroe PA ([facility])cmPerformed.The interpretation of this case included the use of immunohistochemistry or special stains.Control Slides Examined: In-house known positive controls were evaluated along with the test tissue. These control slides run alongside of the patients sample show appropriate staining. Internal positive and negative controls when available are evaluated Immunohistochemistry technical testing was performed at [facility], Pathology Laboratory where it was developed andits [...] perform high complexity clinical laboratory testing.BASIC METABOLIC [id number] 04:30:00 Test Item Value Reference Range Interpretation [...] S NOT APPLICABLE FOR DIALYSIS PATIEN TS. Heavy Equipment Supervisor ID - [id number] 04:30:00 Test Item Value Reference Range Interpretation Comments MAGNESIUM (BEAKER) (test code = 1.8 mg/dL 1.6-2.6 627) Heavy Equipment Supervisor ID - EDASIHEPATIC FUNCTION [id number] 04:30:00 Test Item Value Reference Range Interpretation [...] (test code = 26 U/L 6-55 347) Heavy Equipment Supervisor ID - EDASICBC W/PLT COUNT & AUTO [id number] 03:48:00 Test Item Value Reference Range Interpretation [...] 0-1 PERCENT (BEAKER) (test code = 2801) [id number] 05:11:00 Test Item Value Reference Range Interpretation Comments MAGNESIUM (BEAKER) (test code = 1.8 mg/dL 1.6-2.6 627) Heavy Equipment Supervisor ID - ADMINHEPATIC FUNCTION [id number] 05:11:00 Test Item Value Reference Range Interpretation [...] (test code = 29 U/L 6-55 347) Heavy Equipment Supervisor ID - ADMINBASIC METABOLIC [id number] 05:11:00 Test Item Value Reference Range Interpretation [...] S NOT APPLICABLE FOR DIALYSIS PATIEN TS. Heavy Equipment Supervisor ID - ADMINCBC W/PLT COUNT & AUTO [id number] 04:33:00 Test Item Value Reference Range Interpretation [...] PERCENT (BEAKER) (test code = 2801) SARS-COV2/RT-PCR ([facility])2020-11-08 09:38:00 Test Item Value Reference Range Interpretation Comments SARS-COV2/RT-PCR (test Negative Not Detected, Negative, code = 8482749) See external report for linked test SARS-COV-2 PERFORMING LAB [facility] (test code = 6728437) Negative result for this test determines that [...] of the Act.Fact Sheet for Healthcare Prov iders:https://www.mimoOn/sites/default/files/product/documents/Fact_Sheet_HC _Ezeuwpcus_Viro_AIKJ-NpM-8.pdfFact Sheet for Healthcare Patients:https://www.Edevate.[employer]/sites/default/files/product/docume nts/Aqee_Qbxig_Vehsbuax_Aspo_CUCR-DpK-3.pdfPerforming Laboratory:[facility].[place], [place] [address]PSFOK METABOLIC PANEL 2020-11-08 04:42:00 Test Item Value [...] S NOT APPLICABLE FOR DIALYSIS PATIEN TS. Heavy Equipment Supervisor ID - DANA [id number] 04:42:00 Test Item Value Reference Range Interpretation Comments MAGNESIUM (BEAKER) (test code = 1.8 mg/dL 1.6-2.6 627) Heavy Equipment Supervisor ID - DANA WHEPATIC FUNCTION [id number] 04:42:00 Test Item Value Reference Range Interpretation [...] (test code = 38 U/L 6-55 347) Heavy Equipment Supervisor ID - DANA [id number] 04:42:00 Test Item Value Reference Range Interpretation Comments LIPASE (BEAKER) (test code = 749) 12 U/L 8-78 Heavy Equipment Supervisor ID - DANA WPROTHROMBIN TIME/[id number] 04:35:00 Test Item Value Reference Range Interpretation [...] is 2.5-3.5 for patients wiht mechanical heart valves.[id number] 04:35:00 Test Item Value Reference Range Interpretation Comments PARTIAL THROMBOPLASTIN TIME 28.4 seconds 22.5-36.0 (BEAKER) (test code = 760) CBC W/PLT COUNT & AUTO [id number] 03:57:00 Test Item Value Reference Range Interpretation [...] PERCENT (BEAKER) (test code = 2801) [place], [id number] 16:06:13Reason for exam:->ERCP [facility] : 1980 Sex: MFluoroscopic unit utilized for a procedure performed in the OR. No interpretation was requested. Refer to the operative report for findings. Refer to PACS for patient radiation dose information.MR, BRAIN, WITHOUT [id number] 19:26:00Unlisted Reason for Exam - Click Yes and Enter Reason Below->YesUnlisted Reason for Exam->tingling/numbnessFINAL REPORT MR, BRAIN, WITHOUT CONTRAST, MR, MRA, BRAIN, WITHOUT CONTRAST, MR,MRA, NECK, WITHOUT IV CONTRAST INDICATION: Unlisted Reason for Examtingling/numbness TECHNIQUE: Multiplanar, multisequence MR imaging of the brain without intravenous contrast.MRA of the head utilizing3-D wrhf-ir-kpfzth technique, with 3-D reconstructions.MRA of the neck utilizing 2-D and 3-D yjkt-jp-izkcng technique, with 3-D reconstructions. COMPARISON: None FINDINGS: [...] Signed: Talya Mcelroy Verified Date/Time: 07/08/2020 19:26:58 MR, MRA, BRAIN, WITHOUT [id number] 19:26:00Unlisted Reason for Exam - Click Yes and Enter Reason Below->YesUnlisted Reason for Exam->tingling, numbnessFINAL REPORT MR, BRAIN, WITHOUT CONTRAST, MR, MRA, BRAIN, WITHOUT CONTRAST, MR,MRA, NECK, WITHOUT IV CONTRAST INDICATION: Unlisted Reason for Examtingling/numbness TECHNIQUE: Multiplanar, multisequence MR imaging of the brain without intravenous contrast.MRA of the head utilizing3-D qqsd-kc-xwwxrh technique, with 3-D reconstructions.MRA of the neck utilizing 2-D and 3-D epqo-sz-ygdqfn technique, with 3-D reconstructions. COMPARISON: None FINDINGS: [...] Signed: Talya Mcelroy Verified Date/Time: 07/08/2020 19:26:58 MR, MRA, NECK, WITHOUT IV [id number] 19:26:00Unlisted Reason for Exam - Click Yes and Enter Reason Below->YesUnlisted Reason for Exam->tingling, numbnessFINAL REPORT MR, BRAIN, WITHOUT CONTRAST, MR, MRA, BRAIN, WITHOUT CONTRAST, MR,MRA, NECK, WITHOUT IV CONTRAST INDICATION: Unlisted Reason for Examtingling/numbness TECHNIQUE: Multiplanar, multisequence MR imaging of the brain without intravenous contrast.MRA of the head utilizing3-D dxun-gt-makyey technique, with 3-D reconstructions.MRA of the neck utilizing 2-D and 3-D cguf-qr-fhiupe technique, with 3-D reconstructions. COMPARISON: None FINDINGS: [...]
[2023-06-27 19:35] LABS: Absolute Lymphocytes (CBC) 2.9 K/uL (0.7-4.9); Hematocrit 38.9 % (39.6-49.0); Lymphocytes % 30.7 % (15.3-44.8); MCV 83.4 fL (80-100); MPV 8.1 fL (7.6-11.3); Platelets 267 thou/uL (152-406); RBC Red Blood Cell Count 4.66 M/uL (4.33-5.43)
[2023-06-27 19:41] LABS: Protime INR 0.92
[2023-06-27] MEDS ORDERED: LORazepam 2 MG/ML VIAL ONE (19:46)
--- NOTE | 2023-06-27 19:54 | RAD REPORT ---
EXAM DESCRIPTION: CT - Ct Stroke Brain Wo Cont - 06/27/2023 7:38 pm CLINICAL HISTORY: STROKE ALERT COMPARISON: Head Brain Wo Cont dated 09/03/2022; Head Brain Wo Cont dated 01/14/2022 TECHNIQUE: Noncontrast head CT images were obtained without IV contrast. Multiplanar reformats were generated and reviewed. All CT scans are performed using dose optimization technique as appropriate and may include automated exposure control or mA/KV adjustment according to patient size. FINDINGS: No intracranial hemorrhage, mass, or edema. Midline structures are unremarkable. Normal ventricular caliber for age. Russo-white matter differentiation is preserved, without evidence of acute infarct. No abnormal extra- axial fluid collections. Mastoid air cells and visualized portions of the paranasal sinuses are clear. No acute bony findings. IMPRESSION: No evidence of an acute intracranial process. The findings were communicated to Dr Benítez on 06/27/2023 at 19:48 hours.
[2023-06-27] MEDS ORDERED: NA CHLORIDE 0.9% 1,000 ML ONE (19:57)
[2023-06-27] MEDS ORDERED: NA CHLORIDE 0.9% 100 ML ONE (19:57)
[2023-06-27] MEDS ORDERED: LEVETIRACETAM 500 MG/5 ML VIAL IV ONE (19:57)
[2023-06-27] MEDS ORDERED: ONDANSETRON 4 MG/2 ML VIAL ONE (19:57)
[2023-06-27 19:59] LABS: ALT/SGPT 23 U/L (16-61); AST/SGOT 17 U/L (15-37); Albumin 2.9 g/dL (3.4-5.0); Alkaline Phosphatase 100 U/L (45-117); BUN Blood Urea Nitrogen 10 mg/dL (7-18); Bicarbonate 26 mEq/L (21-32); Bilirubin Direct < 0.1 mg/dL (0-0.2); Bilirubin Indirect, Calculated ND mg/dL (0.2-0.8); Bilirubin Total 0.2 mg/dL (0.2-1.0); Glomerular Filtration Rate 115 ml/min (=/>90); Glucose Level 99 mg/dL (74-106); Potassium 3.7 mEq/L (3.5-5.1); Protein, Total 6.2 g/dL (6.4-8.2); Sodium Level 140 mEq/L (136-145); Troponin High Sensitivity 6.4 pg/mL (<58.9)
--- NOTE | 2023-06-27 20:14 | RAD REPORT ---
EXAM DESCRIPTION: RADChest Single View06/27/2023 7:52 pm CLINICAL HISTORY: cva COMPARISON: Chest Single View dated 01/17/2022; Chest Single View dated 09/17/2021; Chest Single View d ated 08/13/2021; Chest Single View dated 05/24/2021 TECHNIQUE: Portable AP view of the chest. FINDINGS: Decreased inspiratory effort limits evaluation. Central interstitial prominence which may relate to vascular congestion/CHF. No pneumothorax or sizable effusion. The cardiomediastinal contou rs are unremarkable. IMPRESSION: Central interstitial prominence which may relate to vascular congestion or CHF.
--- NOTE | 2023-06-27 22:23 | RAD REPORT ---
EXAM DESCRIPTION: CT - Head angio - 06/27/2023 9:50 pm CLINICAL HISTORY: weakness, Right weakness COMPARISON: Ct Stroke Brain Wo Cont dated 06/27/2023; Head Brain Wo Cont dated 09/03/2022 TECHNIQUE: Axial CT angiography images of the head was performed with multiplanar and maximum intens ity projection reconstructions. Images performed following intravenous administration of 95mL Isovue 370. All CT scans are performed using dose optimization technique as appropriate and may include automated exposure control or mA/KV adjustment according to patient size. FINDINGS: No evidence of large vessel occlusion. No evidence of aneurysm or dissection flap is detec sourav. No flow-limiting stenosis or vascular malformation identified. Antegrade flow is seen in the vertebral arteries. The vertebral arteries are codominant. The visualized dural venous sinuses are grossly patent. IMPRESSION: No evidence of large vessel occlusion or flow-limiting stenosis.
--- NOTE | 2023-06-27 22:26 | RAD REPORT ---
EXAM DESCRIPTION: CT - Neck Angio - 06/27/2023 9:50 pm CLINICAL HISTORY: Right hemiparesis COMPARISON: Head C Spine Mpr Wo Con dated 08/15/2021 TECHNIQUE: Axial CT angiography images of the head was performed with multiplanar and maximum intens ity projection reconstructions. Images performed following intravenous administration of 95mL Isovue 370. All CT scans are performed using dose optimization technique as appropriate and may include automated exposure control or mA/KV adjustment according to patient size. Quantification of carotid stenosis, if any, is performed according to NASCET criteria. FINDINGS: A left aortic arch is identified with variant 4 vessel configuration of the great vessels, with the left aortic arch arising directly as the third breast. No significant flow abnormality is seen of the common carotid bilaterally. No significant stenosis is identified involving the cervical segments of both internal carotid arteri es. Normal flow is seen within both vertebral arteries. IMPRESSION: No significant flow abnormality of the neck vessels is identified. CAROTID STENOSIS REFERENCE USING NASCET CRITERIA: % ICA stenosis = (1 - narrowest ICA diameter/diameter of distal cervical ICA) x 100. Mild - <50% stenosis. Moderate - 50-69% stenosis. Severe - 70-94% stenosis. Near occlusion - 95-99% stenosis. Occluded - 100% stenosis.
--- NOTE | 2023-06-27 23:22 | ER ---
Nurse's Notes [facility] Name: Ta Quezada Age: 43 yrs Sex: Male : 1980 Arrival Date: 06/27/2023 Time: 19:09 Bed 2 Private MD: Diagnosis: Recurrent seizure, epilepsy, right hemiparesis, generalized weakness, cannabis use disorder Presentation: 06/27 19:11 Chief complaint: EMS states: MX SEIZURE OVER LAST TWO DAYS. Coronavirus screen: At this bp time, the client does not indicate any symptoms associated with coronavirus-19. Ebola Screen: No symptoms or risks identified at this time. Initial Sepsis Screen: Does the patient meet any 2 criteria? No. Patient's initial sepsis screen is negative. Does the patient have a suspected source of infection? No. Patient's initial sepsis screen is negative. Risk Assessment: Do you want to hurt yourself or someone else? Patient reports no desire to harm self or others. Onset of symptoms is unknown. Care prior to arrival: Medication(s) given: ATIVAN 1MG IVP IV initiated. 20 GA, in the left forearm. 19:11 Method Of Arrival: EMS: [facility] bp 19:11 Acuity: RENE 3 bp Triage Assessment: 19:12 General: Appears in no apparent distress. Behavior is calm, cooperative, appropriate bp for age. Pain: Denies pain. EENT: No deficits noted. Neuro: Reports weakness R SIDE. Cardiovascular: Rhythm is sinus rhythm. Respiratory: No deficits noted. GI: No signs and/or symptoms were reported involving the gastrointestinal system. : No signs and/or symptoms were reported regarding the genitourinary system. Derm: No deficits noted. Musculoskeletal: No deficits noted. Historical: - Allergies: 19:12 none; bp - Home Meds: 19:12 Keppra 1,000 mg Oral tab [Active]; Depakote 125 mg Oral TbEC [Active]; bp - PMHx: 19:12 Depression; GERD; Hypertension; Kidney stones; neuropathy; Seizure; TIA; bp - PSHx: 19:12 Cholecystectomy; bp - Immunization history:: Adult Immunizations up to date. - Social history:: Smoking status: unknown. Screenin:14 [facility] ED Fall Risk Assessment (Adult) History of falling in the last 3 months, bp including since admission No falls in past 3 months (0 pts). Abuse screen: Denies threats or abuse. Denies injuries from another. Nutritional screening: No deficits noted. Tuberculosis screening: No symptoms or risk factors identified. 19:44 Adelia Swallow Protocol Exclusion Criteria: Unable to remain alert for testing: Yes. rv Assessment: 19:14 General: PT NOW STATES R SIDED WEAKNESS <24 HR, CODE STROKE ACTIVATED.. bp 19:57 Reassessment: pt had seizure episode while at the CT scan, elevated head part, oxygen rv applied, Dr Jameson aware of the situation, Ativan given as ordered. VS stable. 20:40 Neuro: Level of Consciousness is lethargic, Oriented to person, place, time, situation. rv Cardiovascular: Capillary refill < 3 seconds. Respiratory: Airway is patent Respiratory effort is even, unlabored. Vital Signs: 19:11 BP 154 / 86; Pulse 72; Resp 16; Temp 97.9; Pulse Ox 95% ; Weight 115 kg; bp 20:42 BP 129 / 78; Pulse 60; Resp 16; Pulse Ox 98% ; rv 22:00 BP 138 / 78; Pulse 66; Resp 19; Pulse Ox 99% ; rv 09 00:01 BP 146 / 79; Pulse 62; Resp 16; Temp 98; Pulse Ox 96% 2 lpm ; rv Anderson Coma Score: 06/27 19:12 Eye Response: spontaneous(4). Motor Response: obeys commands(6). Verbal Response: bp oriented(5). Total: 15. 19:28 Eye Response: spontaneous(4). Motor Response: obeys commands(6). Verbal Response: sp4 oriented(5). Total: 15. 06/28 00:01 Eye Response: spontaneous(4). Motor Response: obeys commands(6). Verbal Response: rv confused(4). Total: 14. Trauma Score (Adult): 06/27 19:28 Eye Response: spontaneous(1); Verbal Response: oriented(1); Motor Response: obeys sp4 commands(2); Systolic BP: > 89 mm Hg(4); Respiratory Rate: 10 to 29 per min(4); Anderson Score: 15; Trauma Score: 12 NIH Stroke Scale Scores: 19:28 NIHSS Score: 4 sp4 ED Course: 19:11 Patient arrived in ED. bp 19:11 Haile Benítez MD is Attending Physician. sp4 19:12 Triage completed. bp 19:14 Arm band placed on. bp 19:14 Patient has correct armband on for positive identification. Bed in low position. Call bp light in reach. Side rails up X2. 19:14 Maintain EMS IV. Dressing intact. Good blood return noted. Site clean \T\ dry. Gauge \T\ bp site: 20 GA LEFT FA. 19:39 CT Stroke Brain w/o Contrast In Process Unspecified. EDMS 19:43 Josiah Norton, ANGELICA is Primary Nurse. rv 19:54 Stroke CXR 1 View In Process Unspecified. EDMS 19:56 Inserted saline lock: 20 gauge in right hand, using aseptic technique. rv 21:52 CT Head Angio In Process Unspecified. EDMS 21:52 CT Neck Angio In Process Unspecified. EDMS 23:21 Yousif Murrell is Hospitalizing Provider. sp4 06/28 00:01 No provider procedures requiring assistance completed. Patient admitted, IV remains in rv place. 00:02 Provided Education on: CT SCAN. rv 00:02 Seizure precautions initiated. rv Administered Medications: 06/27 19:35 Drug: Ativan IVP 2 mg Route: IVP; Site: left forearm; rv 20:41 Follow up: Response: No adverse reaction rv 19:55 Drug: NS 0.9% IV 1000 ml Route: IV; Rate: 1 bolus; Site: right hand; rv 20:41 Follow up: IV Status: Completed infusion; IV Intake: 1000ml rv 19:55 Drug: Ondansetron IVP 4 mg Route: IVP; Site: right hand; rv 20:41 Follow up: Response: No adverse reaction rv 19:56 Drug: Keppra IV 1000 mg Route: IV; Rate: bolus; Site: right hand; rv 20:41 Follow up: Response: No adverse reaction; IV Status: Completed infusion rv 06/28 00:03 Drug: Valproic Acid IV 500 mg Route: IV; Rate: calculated rate; Infused Over: 60 mins; rv Site: right forearm; 00:03 Follow up: IV Status: Infusion continued upon admission rv Medication: 06/27 19:14 VIS not applicable for this client. bp Intake: 20:41 IV: 1000ml; Total: 1000ml. rv Outcome: 23:21 Decision to Hospitalize by Provider. sp4 06/28 00:02 Admitted to Med/surg accompanied by nurse, via stretcher, room 211, with chart, Report rv called to JUSTINE SORENSON Condition: stable Instructed on the need for admit. 00:15 Patient left the ED. rv NIH Stroke Scale - NIH Stroke Score Date: 06/27/2023 Time: 19:28 Total Score = 4 10. Dysarthria (speech clarity - read or repeat words) - 0(Normal) 11. Extinction and Inattention (visual/tactile/auditory/spatial/personal) - 0(No abnormality) 1a. Level of Consciousness (LOC) - 0(Alert) 1b. Level of Consciousness (LOC) (Month \T\ Age) - 0(Both) 1c. LOC Commands (Open \T\ Closes Eyes/Documentation Designer) - 0(Both) 2. Best Gaze (Lateral Gaze Paresis) - 0(Normal) 3. Visual Field Loss - 0(No visual loss) 4. Facial Palsy - 0(Normal) 5a. Left Arm: Motor (10-second hold) - 0(No drift) 5b. Right Arm: Motor (10-second hold) - 1(Drift) 6a. Left Leg: Motor (5-second hold - always test supine) - 0(No drift) 6b. Right Leg: Motor (5-second hold - always test supine) - 2(Drift, some effort against gravity) 7. Limb Ataxia (finger/nose \T\ heel/holm - test with eyes open) - 0(Absent) 8. Sensory Loss (pinprick arms/legs/face) - 1(Mild to moderate loss) 9. Best Language: Aphasia (description/naming/reading) - 0(No aphasia) Initials: sp4 Signatures: Dispatcher [employer] Donte Mak, RN RN Josiah Romo RN RN Haile Powers MD MD sp4
--- NOTE | 2023-06-27 23:22 | EDPHYS ---
Physician Documentation [facility] Name: Ta Quezada Age: 43 yrs Sex: Male : 1980 Arrival Date: 06/27/2023 Time: 19:09 Bed 2 Private MD: ED Physician Haile Benítez HPI: 06/27 19:25 This 43 yrs old Male presents to ER via EMS with complaints of Seizure. sp4 19:25 43-year-old male with history of depression, GERD, hypertension, kidney stones, sp4 neuropathy, epilepsy, prior CVA, also cannabis abuse, presents with a cute onset seizure is reported as feeling unwell, chest pain, and right-sided weakness, patient reported that he woke up at 10:30 this morning with right-sided weakness and chest pains. His last known well was estimated sometime last night. At 1030 patient reported that he had right-sided weakness, could not stand up, and had midsternal chest pains. EMS presenting complaint was actually that patient had a seizure at home.. Patient states he takes Keppra and Depakote for his epilepsy. . 19:27 HPI - Home Meds: Depakote 125 mg Oral , Keppra 1,000 mg Oral tab; Lasix Oral; sp4 pantoprazole Oral; pregabalin Oral PMHx: Depression; GERD; Kidney stones; Hypertension; neuropathy; Seizure; TIA PSHx: Cholecystectomy; . Historical: - Allergies: 19:12 none; bp - Home Meds: 19:12 Keppra 1,000 mg Oral tab [Active]; Depakote 125 mg Oral TbEC [Active]; bp - PMHx: 19:12 Depression; GERD; Hypertension; Kidney stones; neuropathy; Seizure; TIA; bp - PSHx: 19:12 Cholecystectomy; bp - Immunization history:: Adult Immunizations up to date. - Social history:: Smoking status: unknown. ROS: 19:28 Constitutional: Negative for fever, chills, and weight loss, positive generalized sp4 weakness, positive chest pain, positive right-sided weakness, positive for feeling unwell 19:28 Neuro: Positive for weakness, Positive for right arm and right leg weakness, denies slurring speech. 19:28 All other systems are negative. Exam: 19:28 Constitutional: This is a well developed, well nourished patient who is awake, alert, sp4 and in no acute distress. Overweight male, resting in bed, no distress, vital signs stable Head/Face: Normocephalic, atraumatic. Eyes: Pupils equal round and reactive to light, extra-ocular motions intact. Lids and lashes normal. Conjunctiva and sclera are not injected. Cornea within normal limits. Periorbital areas with no swelling, redness, or edema. ENT: Nares patent. No nasal discharge, no septal abnormalities noted. Tympanic membranes are normal and external auditory canals are clear. Oropharynx with no redness, swelling, or masses, exudates, or evidence of obstruction, uvula midline. Mucous membranes moist. Neck: Trachea midline, no thyromegaly or masses palpated, and no cervical lymphadenopathy. Supple, full range of motion without nuchal rigidity, or vertebral point tenderness. Chest/axilla: Normal chest wall appearance and motion. Nontender with no deformity. No lesions are appreciated. Cardiovascular: Regular rate and rhythm with a normal S1 and S2. No gallops, murmurs, or rubs. Normal PMI, no JVD. No pulse deficits. Respiratory: Lungs have equal breath sounds bilaterally, clear to auscultation and percussion. No rales, rhonchi or wheezes noted. No increased work of breathing, no retractions or nasal flaring. Abdomen/GI: Soft, non-tender, with normal bowel sounds. No distension or tympany. No guarding or rebound. No evidence of tenderness throughout. Back: No spinal tenderness. No costovertebral tenderness. Skin: Warm, dry with normal turgor. Normal color with no rashes, no lesions, and no evidence of cellulitis. MS/ Extremity: Pulses equal, no cyanosis. Neurovascular intact. Full, normal range of motion. Neuro: Awake and alert, GCS 15, oriented to person, place, time, and situation. Cranial nerves II-XII grossly intact. Decreased sensation right arm, strength 4 out of 5 right arm, strength 3 out of 5 right lower extremity. Findings consistent with mild hemiparesis on the right side Psych: Awake, alert, with orientation to person, place and time. Behavior, mood, and affect are within normal limits 19:32 ECG was reviewed by the Attending Physician. EKG time 8, there is normal sinus sp4 rhythm, normal EKG, ventricular rate 73, no ectopy, normal EKG Vital Signs: 19:11 BP 154 / 86; Pulse 72; Resp 16; Temp 97.9; Pulse Ox 95% ; Weight 115 kg; bp 20:42 BP 129 / 78; Pulse 60; Resp 16; Pulse Ox 98% ; rv 22:00 BP 138 / 78; Pulse 66; Resp 19; Pulse Ox 99% ; rv 06/28 00:01 BP 146 / 79; Pulse 62; Resp 16; Temp 98; Pulse Ox 96% 2 lpm ; rv NIH Stroke Scale Scores: 06/27 19:28 NIHSS Score: 4 sp4 Karie Coma Score: 19:12 Eye Response: spontaneous(4). Motor Response: obeys commands(6). Verbal Response: bp oriented(5). Total: 15. 19:28 Eye Response: spontaneous(4). Motor Response: obeys commands(6). Verbal Response: sp4 oriented(5). Total: 15. 06/28 00:01 Eye Response: spontaneous(4). Motor Response: obeys commands(6). Verbal Response: rv confused(4). Total: 14. Trauma Score (Adult): 06/27 19:28 Eye Response: spontaneous(1); Verbal Response: oriented(1); Motor Response: obeys sp4 commands(2); Systolic BP: > 89 mm Hg(4); Respiratory Rate: 10 to 29 per min(4); Hampton Score: 15; Trauma Score: 12 MDM: 19:42 Patient medically screened. sp4 23:17 Differential diagnosis: cerebral vascular accident, drug overdose, cardiac arrhythmia, sp4 seizure, TIA. Data reviewed: vital signs, nurses notes, EMS record, old medical records, lab test result(s), EKG, radiologic studies, CT scan, plain films. Consideration of Admission/Observation Patient was admitted/placed on observation. Escalation of care including admission/observation considered. Management of patient was discussed with the following: Hospitalist: Discussed with admission team. Drum Cleaner: Rajat Jensen MD Neurology . ED course: CT head is negative. CT head with angiography revealed no evidence of large vessel occlusion or flow-limiting stenosis. CT angio of the neck has revealed no significant flow abnormality over the neck vessels identified. Normal flow seen within both vertebral arteries. . 23:20 ED course: Patient had seizure in the emergency room and was given Ativan 2 mg IV. sp4 Since CT angiography is negative for flow-limiting stenosis or occlusion patient is stable for admission here to hospitalist with consultation to neurology. 06/27 19:23 Order name: Basic Metabolic Panel; Complete Time: 20:27 sp4 06/27 19:23 Order name: CBC with Diff; Complete Time: 20:27 sp4 06/27 19:23 Order name: Hepatic Function; Complete Time: 20:27 sp4 06/27 19:23 Order name: High Sensitivity Troponin; Complete Time: 20:27 sp4 06/27 19:23 Order name: Magnesium; Complete Time: 20:27 sp4 06/27 19:23 Order name: Protime (+inr); Complete Time: 20:27 4 06/27 19:23 Order name: Ptt, Activated; Complete Time: 20:27 sp4 06/27 19:23 Order name: UDS [facility] 06/27 19:23 Order name: Alcohol Level; Complete Time: 20:27 [facility] 06/27 19:24 Order name: TSH; Complete Time: 20:27 4 06/27 19:24 Order name: T4 Free; Complete Time: 20:27 sp4 06/27 19:28 Order name: Glucose, Ancillary Testing; Complete Time: 20:27 [facility] 06/27 23:20 Order name: Valproic Acid (depakote) [facility] 06/27 23:22 Order name: SARS RAPID [facility] 06/27 23:25 Order name: Urinalysis w/ reflexes EDMS 06/27 23:25 Order name: Basic Metabolic Panel EDMS 06/27 23:25 Order name: Basic Metabolic Panel EDMS 06/27 23:25 Order name: Basic Metabolic Panel EDMS 06/27 23:25 Order name: Basic Metabolic Panel EDMS 06/27 23:25 Order name: CBC with Automated Diff EDMS 06/27 23:25 Order name: CBC with Automated Diff EDMS 06/27 23:25 Order name: CBC with Automated Diff EDMS 06/27 23:25 Order name: CBC with Automated Diff EDMS 06/27 23:25 Order name: Magnesium EDMS 06/27 23:25 Order name: Magnesium EDMS 06/27 23:25 Order name: Magnesium EDMS 06/27 23:25 Order name: Magnesium EDMS 06/27 19:23 Order name: CT Stroke Brain w/o Contrast; Complete Time: 20:27 sp4 06/27 19:23 Order name: Stroke CXR 1 View; Complete Time: 20:27 sp4 06/27 20:31 Order name: CT Head Angio; Complete Time: 23:09 sp4 06/27 20:31 Order name: CT Neck Angio; Complete Time: 23:09 sp4 06/27 23:29 Order name: Brain With Cont [facility] 06/27 19:23 Order name: EKG; Complete Time: 19:24 sp4 06/27 23:25 Order name: CONS Physician Consult [facility] 06/27 23:29 Order name: Physical Therapy Consult [facility] 06/27 23:29 Order name: Speech Therapy Consult [facility] 06/27 19:23 Order name: Accucheck; Complete Time: 19:43 sp4 06/27 19:23 Order name: Cardiac monitoring; Complete Time: 19:43 sp4 06/27 19:23 Order name: EKG - Nurse/Tech; Complete Time: 19:44 sp4 06/27 19:23 Order name: IV Saline Lock; Complete Time: 19:44 sp4 06/27 19:23 Order name: Labs collected and sent; Complete Time: 19:44 sp4 06/27 19:23 Order name: NPO; Complete Time: 19:44 sp4 06/27 19:23 Order name: O2 Per Protocol; Complete Time: 19:44 sp4 06/27 19:23 Order name: O2 Sat Monitoring; Complete Time: 19:43 sp4 06/27 19:23 Order name: Stroke Swallow Screen; Complete Time: 19:44 sp4 EC:32 Rate is 73 beats/min. Rhythm is regular, Normal Sinus Rhythm. QRS Serafina is Normal. MO sp4 interval is normal. QRS interval is normal. QT interval is normal. No Q waves. T waves are Normal. No ST changes noted. Clinical impression: Normal ECG. Interpreted by me. Administered Medications: 19:35 Drug: Ativan IVP 2 mg Route: IVP; Site: left forearm; rv 20:41 Follow up: Response: No adverse reaction rv 19:55 Drug: NS 0.9% IV 1000 ml Route: IV; Rate: 1 bolus; Site: right hand; rv 20:41 Follow up: IV Status: Completed infusion; IV Intake: 1000ml rv 19:55 Drug: Ondansetron IVP 4 mg Route: IVP; Site: right hand; rv 20:41 Follow up: Response: No adverse reaction rv 19:56 Drug: Keppra IV 1000 mg Route: IV; Rate: bolus; Site: right hand; rv 20:41 Follow up: Response: No adverse reaction; IV Status: Completed infusion rv 06/28 00:03 Drug: Valproic Acid IV 500 mg Route: IV; Rate: calculated rate; Infused Over: 60 mins; rv Site: right forearm; 00:03 Follow up: IV Status: Infusion continued upon admission rv Disposition Summary: 06/27/23 23:21 Hospitalization Ordered Hospitalization Status: Inpatient Admission sp4 Provider: Yousif Murrell Location: Telemetry/[facility]Sur (Inpatient) sp4 Condition: Stable sp4 Problem: new sp4 Symptoms: have improved sp4 Bed/Room Type: Standard sp4 Room Assignment: 211(06/27/23 23:43) Diagnosis - Recurrent seizure, epilepsy, right hemiparesis, generalized weakness, cannabis use sp4 disorder Forms: - Medication Reconciliation Form sp4 - SBAR form sp4 - Leadership Thank You Letter sp4 NIH Stroke Scale - NIH Stroke Score Date: 06/27/2023 Time: 19:28 Total Score = 4 10. Dysarthria (speech clarity - read or repeat words) - 0(Normal) 11. Extinction and Inattention (visual/tactile/auditory/spatial/personal) - 0(No abnormality) 1a. Level of Consciousness (LOC) - 0(Alert) 1b. Level of Consciousness (LOC) (Month \T\ Age) - 0(Both) 1c. LOC Commands (Open \T\ Closes Eyes/Pie Bakery Laborer) - 0(Both) 2. Best Gaze (Lateral Gaze Paresis) - 0(Normal) 3. Visual Field Loss - 0(No visual loss) 4. Facial Palsy - 0(Normal) 5a. Left Arm: Motor (10-second hold) - 0(No drift) 5b. Right Arm: Motor (10-second hold) - 1(Drift) 6a. Left Leg: Motor (5-second hold - always test supine) - 0(No drift) 6b. Right Leg: Motor (5-second hold - always test supine) - 2(Drift, some effort against gravity) 7. Limb Ataxia (finger/nose \T\ heel/holm - test with eyes open) - 0(Absent) 8. Sensory Loss (pinprick arms/legs/face) - 1(Mild to moderate loss) 9. Best Language: Aphasia (description/naming/reading) - 0(No aphasia) Initials: sp4 Signatures: Dispatcher [employer] EDMS Tonya Bishop RN RN mw Peltier, Brian, RN RN bp Vicente, Ronaldo, RN RN rv Potepalov, Sergey, MD MD sp4 Corrections: (The following items were deleted from the chart) 06/27 23:43 23:21 sp4 mw
--- NOTE | 2023-06-27 23:29 | P.HP ---
Certification for Inpatient Patient admitted to: Inpatient With expected LOS: <2 Midnights Patient will require the following post-hospital care: None Practitioner: I am a practitioner with admitting privileges, knowledge of patient current condition, hospital course, and medical plan of care. Services: Services provided to patient in accordance with Admission requirements found in Title 42 Section 412.3 of the Code of Federal Regulations Patient History Date of Service: 06/28/23 Reason for admission: Seizure History of Present Illness: 43-year-old male with a past medical history of depression, GERD, hypertension, kidney stones, neuropathy, seizure disorder, TIA, cannabis use presents to the emergency room via EMS with complaints of seizure. He reports seizure prior to arrival. He reports he woke up at 10:30 AM, with right-sided weakness and chest pain. He reports last known feeling well yesterday evening. He reports inability to stand, he reports chest pain is substernal, nonradiating, no reported nausea, vomiting, fever, chills, diarrhea, abdominal pain, shortness of breath. Plan to admit for - Recurrent seizure, epilepsy, right hemiparesis, generalized weakness, cannabis use. ER evaluation Rate is 73 beats/min. Rhythm is regular, Normal Sinus Rhythm. QRS [place] is Normal. MD interval is normal. QRS interval is normal. QT interval is normal. No Q waves. T waves are Normal. No ST changes noted. Clinical impression: Normal ECG. GCS is 15, NIH stroke scale 4. BP 154 he was treated with IV Keppra 1000 mg, normal saline, Zofran, Ativan 2 mg. / 86; Pulse 72; Resp 16; Temp 97.9; Pulse Ox 95% CTA of the neck IMPRESSION: No significant flow abnormality of the neck vessels is identified. CT of the head IMPRESSION: No evidence of large vessel occlusion or flow- limiting stenosis, chest x-ray IMPRESSION: Central interstitial prominence which may relate to vascular congestion or CHF, brain CT IMPRESSION: No evidence of an acute intracranial process Allergies No Known Allergies Allergy (Verified 01/15/22 04:24) Home Medications: Fluoxetine HCl [Prozac*] 2 tab PO DAILY 11/04/20 Baclofen 10 mg PO BID 01/15/22 Divalproex Sodium [Depakote] 750 mg PO BID 01/15/22 Gabapentin 600 mg PO BID 01/15/22 Pantoprazole [Protonix Tab] 40 mg PO BID 01/15/22 Phenytoin Sodium Extended [Dilantin] 300 mg PO BEDTIME 01/15/22 Sucralfate [Carafate -Tab] 1 gm PO BID 01/15/22 levETIRAcetam [Keppra*] 100 mg PO BID 01/15/22 - Past Medical/Surgical History Diabetic: No -: Depression -: Neuropathy -: GERD -: Juarez's esophagus -: Tobacco abuse -: Seizures -: Cholecystectomy Psychosocial/ Personal History: Patient is . Lives at home. - Family History Mother -: Diabetes, Cancer - Social History Alcohol use: Yes CD- Drugs: No Caffeine use: No Review of Systems 10-point ROS is otherwise unremarkable Physical Examination - Physical Exam General: Other (drowsy from ativan, eyes open to verbal) HEENT: Atraumatic, Normocephalic, PERRLA, Mucous membr. moist/pink Neck: Supple, 2+ carotid pulse no bruit, JVD not distended Respiratory: Clear to auscultation bilaterally, Normal air movement Cardiovascular: Normal pulses, Regular rate/rhythm, Normal S1 S2 Capillary refill: <2 Seconds Gastrointestinal: Normal bowel sounds, Soft and benign Musculoskeletal: No clubbing, No swelling, Other (R) weakness) Integumentary: No rashes, No breakdown Neurological: Other (post ictal, lethargic) External genitalia: No edema, No lesions - Studies Laboratory Data (last 24 hrs) 06/27/23 06/27/23 06/27/23 19:25 19:25 19:25 WBC 9.30 Hgb 13.1 L Hct 38.9 L Plt Count 267 PT 10.1 INR 0.92 APTT 24.0 L Sodium 140 Potassium 3.7 BUN 10 Creatinine 0.73 Glucose 99 Magnesium 2.0 Total Bilirubin 0.2 AST 17 ALT 23 Alkaline Phosphatase 100 Assessment and Plan - Plan Assessment/plan Right hemiparesis Neurology consult, MRI of the brain in the morning Speech eval, OT eval, fall precautions Breakthrough seizures history seizure disorder CTA of the neck IMPRESSION: No significant flow abnormality of the neck vessels is identified. CT of the head IMPRESSION: No evidence of large vessel occlusion or flow-limiting stenosis, treated with IV Keppra 1000 mg, normal saline, Zofran, Ativan 2 mg. GCS is 15, NIH stroke scale 4. Juarez's esophagus/GERD Obtain and continue home medication when more alert Hypertension Trend troponins, telemetry chest x-ray IMPRESSION: Central interstitial prominence which may relate to vascular congestion or CHF, BP 154 / 86; Pulse 72; Resp 16; Temp 97.9; Pulse Ox 95% DVT PPX: Lovenox Code status: Full Discharge Plan: Home Plan to discharge in: 24 Hours Discharge Plan: Home Plan to discharge in: 48 Hours - Advance Directives Does patient have a Living Will: No Does patient have a Durable POA for Healthcare: No - Code Status/Comfort Care Code Status: Full Code Physician Review: Patient Assessed, Agree with Above Assessment and Plan Critical Care: No Time Spent Managing Pts Care (In Minutes): 50
[2023-06-28 00:05] LABS: SARS-CoV-2 Antigen Rapid Res Negative (Negative)
[2023-06-28] MEDS ORDERED: VALPROATE NA 500 MG/5 ML INJ IV ONE (00:06)
[2023-06-28] MEDS ORDERED: NA CHLORIDE 0.9% 100 ML ONE (00:06)
[2023-06-28 01:29] LABS: Barbiturates NEGATIVE (NEGATIVE); Benzodiazepines NEGATIVE (NEGATIVE); Cocaine NEGATIVE (NEGATIVE); METHAMPHETAM POSITIVE (NEGATIVE); Methadone NEGATIVE (NEGATIVE); Opiates NEGATIVE (NEGATIVE); Phencyclidine NEGATIVE (NEGATIVE); THC Cannibis POSITIVE (NEGATIVE)
[2023-06-28 03:56] LABS: Absolute Lymphocytes (CBC) 3.3 K/uL (0.7-4.9); Hematocrit 36.4 % (39.6-49.0); Lymphocytes % 39.6 % (15.3-44.8); MCV 84.1 fL (80-100); MPV 8.5 fL (7.6-11.3); Platelets 251 thou/uL (152-406); RBC Red Blood Cell Count 4.32 M/uL (4.33-5.43)
[2023-06-28 04:03] LABS: Magnesium 2.1 mg/dL (1.6-2.4); Potassium 3.5 mEq/L (3.5-5.1)
[2023-06-28] MEDS: levETIRAcetam 500 MG in NA CHLORIDE 0.9% 100 ML IV SCH ×2 (08:58→20:14)
[2023-06-28] MEDS: PANTOPRAZOLE 40MG TABLET PO SCH ×2 (08:59→16:17)
[2023-06-28] MEDS ORDERED: POTASSIUM CL SA 10 MEQ TAB PO ONE (09:00)
[2023-06-28 12:32] VITALS: O2SAT 98
--- NOTE | 2023-06-28 13:19 | P.PN ---
Subjective Date of Service: 06/28/23 Chief Complaint: Seizure Patient had another episode of seizure this morning. Physical Examination - Vital Signs Temperature: 98 F Blood Pressure: 146/79 Pulse: 62 Respirations: 16 Pulse Ox (%): 96 - Studies Laboratory Data (last 24 hrs) 06/27/23 06/27/23 06/27/23 19:25 19:25 19:25 WBC 9.30 Hgb 13.1 L Hct 38.9 L Plt Count 267 PT 10.1 INR 0.92 APTT 24.0 L Sodium 140 Potassium 3.7 BUN 10 Creatinine 0.73 Glucose 99 Magnesium 2.0 Total Bilirubin 0.2 AST 17 ALT 23 Alkaline Phosphatase 100 Assessment And Plan - Plan Physical Exam General: Drowsy, NAD. HEENT: Anicteric sclera. Neck: Supple, 2+ carotid pulse no bruit, JVD not distended Respiratory: Clear to auscultation bilaterally, Normal air movement Cardiovascular: Normal pulses, Regular rate/rhythm, Normal S1 S2 Gastrointestinal: Normal bowel sounds, Soft and benign Musculoskeletal: No clubbing, No swelling, Other (R) weakness) Integumentary: No rashes, No breakdown Neurological: No focal motor deficit. External genitalia: No edema, No lesions Diagnosis Seizure disorder Juarez's esophagus Polysubstance abuse Hypertension Right hemiparesis Occurred after seizure episode. 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 Speech eval, OT eval, fall precautions Breakthrough seizures/history seizure disorder CTA of the neck IMPRESSION: No significant flow abnormality of the neck vessels is identified. CT of the head IMPRESSION: No evidence of large vessel occlusion or flow-limiting stenosis. 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 Ativan IV as needed for seizures. MRI of the brain is pending. Juarez's esophagus/GERD PPI. Hypertension Resume home antihypertensives once patient tolerates p.o. Hydralazine as needed for BP spikes. DVT PPX: Lovenox Code status: Full Discharge Plan: Home
[2023-06-28] MEDS: LORazepam 2 MG/ML VIAL IV PRN (14:59)
[2023-06-28] MEDS: VALPROATE SODIUM INJ 500 MG in NA CHLORIDE 0.9% 100 ML IV SCH (15:31)
--- NOTE | 2023-06-28 15:42 | RAD REPORT ---
EXAM DESCRIPTION: MRI - Brain W/Wo Cont - 06/28/2023 2:10 pm CLINICAL HISTORY: seizure, right side weakness COMPARISON: Head CT and CT angiogram of earlier this day TECHNIQUE: Multiplanar multisequence MRI of the brain performed before and after intravenous adminis tration of 20 mL MultiHance. FINDINGS: Motion artifact somewhat limits evaluation on the T2, and some of the postcontrast images. No evidence of acute infarct or other diffusion signal abnormality. No evidence of acute intracranial hemorrhage or abnormal extra-axial fluid collections. Ventricular caliber within normal for age. Midline structures are unremarkable. No significant white matter signal abnormalities. No mass effect or midline shift. No evidence of an intracranial mass or abnormal enhancement Major vascular flow voids are preserved. Mastoid air cells and paranasal sinuses are clear. IMPRESSION: No acute intracranial process. No evidence of ventriculomegaly, mass-effect, or abnormal enhancement.
--- NOTE | 2023-06-28 17:02 | P.PN ---
Date of Service: 06/28/23 Patient has been experiencing multiple seizures. I suspect this is related to methamphetamine. Case discussed with neurology Dr. Earl who recommended adding IV valproate. Ativan IV also available for breakthrough seizures. Transferred to ICU Keep n.p.o. Neurochecks. Neurology to follow.
--- NOTE | 2023-06-28 17:06 | EKG ---
Test Date: 2023-06-27 Test Time: 19:18:25 Siebel Consultant: RV MEASUREMENT RESULTS: Intervals: Rate: 73 MI: 152 QRSD: 102 QT: 398 QTc: 438 Thicket: P: 39 MI: 152 QRS: 79 T: 50 INTERPRETIVE STATEMENTS: Normal sinus rhythm Normal ECG Compared to ECG 12/11/2022 00:59:50 No significant changes Electronically Signed On 06-28-23 17:04:48 CDT by Henry Walton
[2023-06-28 20:32] LABS: Specific Gravity 1.019 (1.005-1.030); Urine Bilirubin NEGATIVE (Negative); Urine Blood Negative (Negative); Urine Clarity Clear (Clear); Urine Color Light-Yellow (Yellow); Urine Glucose NEGATIVE (Negative); Urine Protein NEGATIVE (Negative); Urine Urobilinogen Normal (Normal)
[2023-06-29] MEDS: VALPROATE SODIUM INJ 500 MG in NA CHLORIDE 0.9% 100 ML IV SCH ×3 (00:14→17:32)
[2023-06-29 04:38] LABS: Absolute Lymphocytes (CBC) 3.2 K/uL (0.7-4.9); Lymphocytes % 23.8 % (15.3-44.8); MCV 83.9 fL (80-100); MPV 7.9 fL (7.6-11.3); Platelets 271 thou/uL (152-406); RBC Red Blood Cell Count 4.41 M/uL (4.33-5.43)
[2023-06-29 04:57] LABS: Magnesium 1.9 mg/dL (1.6-2.4); Potassium 3.8 mEq/L (3.5-5.1)
[2023-06-29 05:23] VITALS: BMI 35.8
--- NOTE | 2023-06-29 06:45 | P.PN ---
Date of Service: 06/29/23 Subjective: Doing okay, tired no seizures overnight / this morning no acute events overnight ROS: 10 point ROS as noted above, otherwise negative Physical Exam: GEN: Alert, orientedx2, fatigued appearing HEENT: Normal conjunctiva, sclera anicteric CV: Regular rate and rhythm, no edema Pulm: Non-labored respirations on 2L NC ABD: Soft, nontender, nondistended Integumentary: No rashes Neuro: Normal/slow speech, tired/fatigued, intermittent R-sided weakness vitals reviewed Problem List: Seizure disorder; epileptic and non-epileptic seizures Right hemiparesis; Haile's paralysis Juarez's esophagus/GERD Polysubstance abuse Hypertension Breakthrough seizures/history seizure disorder: epileptic and non-epileptic seizures CTA neck/head (06/27): negative for any acute findings MRI brain (06/28): negative for any acute intracranial process Breakthrough seizure likely related to metamphetamine abuse and a degree of noncompliance treated with IV Keppra 1000 mg, IV Depakote and IV Ativan in the ED Neurology consulted Continue IV Keppra continue IV valproate levels checked (send outs) Ativan PRN for seizures. Right hemiparesis Occurred after seizure episode. 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 PPI. Hypertension. Confirm home medications, restart as appropriate VTE: Lovenox Code: Full Dispo: continue monitoring Afternoon Update: patient with 3 more episodes of seizure activity, lasting 3-6 minutes each I was present during 2nd episode, patient was responsive, with very low/mumbled speech through a clenched jaw, unable to make out what he was trying to say At least this 2nd seizure was more consistent with non-epileptic / pseudo- seizure Discussed continued seizure activity with Dr. Earl, who recommended transfer to tertiary care center for EMU / continuous EEG monitoring to evaluate seizures and titrate medications appropriately. Transfer was initiated to [facility], accepted by neuro and hospitalist to tele-neuro floor
[2023-06-29] MEDS: PANTOPRAZOLE 40MG TABLET PO SCH (07:30)
[2023-06-29] MEDS ORDERED: levETIRAcetam 1,000 MG in NA CHLORIDE 0.9% 100 ML IV SCH (09:00)
[2023-06-29] MEDS: LORazepam 2 MG/ML VIAL IV PRN ×2 (13:58→19:50)
[2023-06-29] MEDS ORDERED: SODIUM CHLORIDE 0.9% 10ML INJ IV PRN (16:28)
[2023-06-29 20:03] VITALS: BP 124/75; TEMP 97.5
[2023-06-29] MEDS ORDERED: PANTOPRAZOLE 40 MG INJ IVP SCH (21:00)
--- NOTE | 2023-06-30 07:40 | P.DS ---
Admission Date: 06/27/23 Discharge Date: 06/29/23 Disposition: TRANSFER TO [facility] Discharge Condition: FAIR Reason for Admission: Seizure Consultations: Neurology - Dr. Earl Brief History of Present Illness: 43yo M, PMH: depression, GERD, hypertension, kidney stones, neuropathy, seizure disorder, TIA, cannabis use Patient presents to the emergency room via EMS with complaints of seizure. He reports seizure prior to arrival. He reports he woke up at 10:30 AM, with right-sided weakness and chest pain. He reports last known feeling well yesterday evening. He reports inability to stand, he reports chest pain is substernal, nonradiating, no reported nausea, vomiting, fever, chills, diarrhea, abdominal pain, shortness of breath. Plan to admit for - Recurrent seizure, epilepsy, right hemiparesis, generalized weakness, cannabis use. ER evaluation Rate is 73 beats/min. Rhythm is regular, Normal Sinus Rhythm. QRS [place] is Normal. VA interval is normal. QRS interval is normal. QT interval is normal. No Q waves. T waves are Normal. No ST changes noted. Clinical impression: Normal ECG. GCS is 15, NIH stroke scale 4. BP 154 he was treated with IV Keppra 1000 mg, normal saline, Zofran, Ativan 2 mg. / 86; Pulse 72; Resp 16; Temp 97.9; Pulse Ox 95% CTA of the neck IMPRESSION: No significant flow abnormality of the neck vessels is identified. CT of the head IMPRESSION: No evidence of large vessel occlusion or flow-limiting stenosis, chest x-ray IMPRESSION: Central interstitial prominence which may relate to vascular congestion or CHF, brain CT IMPRESSION: No evidence of an acute intracranial process Hospital Course: Problem List: Seizure disorder; epileptic and non-epileptic seizures Right hemiparesis; Haile's paralysis Juarez's esophagus/GERD Polysubstance abuse Hypertension Physical Exam: GEN: Alert, orientedx2, fatigued appearing HEENT: Normal conjunctiva, sclera anicteric CV: Regular rate and rhythm, no edema Pulm: Non-labored respirations on 2L NC ABD: Soft, nontender, nondistended Integumentary: No rashes Neuro: Normal/slow speech, tired/fatigued, intermittent R-sided weakness Vital Signs/Physical Exam: Temp Pulse Resp BP Pulse Ox 97.5 F 59 15 124/75 98 06/29/23 19:50 06/29/23 19:50 06/29/23 19:50 06/29/23 19:50 06/29/23 19:50 Laboratory Data at Discharge: WBC 13.40 thou/uL (4.3-10.9) H 06/29/23 04:25 Hgb 12.3 g/dL (13.6-17.9) L 06/29/23 04:25 Hct 37.0 % (39.6-49.0) L 06/29/23 04:25 Plt Count 271 thou/uL (152-406) 06/29/23 04:25 PT 10.1 SECONDS (9.5-12.5) 06/27/23 19:25 INR 0.92 06/27/23 19:25 APTT 24.0 SECONDS (24.3-36.9) L 06/27/23 19:25 Sodium 141 mEq/L (136-145) 06/29/23 04:25 Potassium 3.8 mEq/L (3.5-5.1) 06/29/23 04:25 BUN 10 mg/dL (7-18) 06/29/23 04:25 Creatinine 0.79 mg/dL (0.70-1.30) 06/29/23 04:25 Glucose 93 mg/dL (74-106) 06/29/23 04:25 Magnesium 1.9 mg/dL (1.6-2.4) 06/29/23 04:25 Total Bilirubin 0.2 mg/dL (0.2-1.0) 06/27/23 19:25 AST 17 U/L (15-37) 06/27/23 19:25 ALT 23 U/L (16-61) 06/27/23 19:25 Alkaline Phosphatase 100 U/L (45-117) 06/27/23 19:25 Home Medications: Fluoxetine HCl [Prozac*] 40 mg PO DAILY 11/04/20 Divalproex Sodium [Depakote] 500 mg PO BID 01/15/22 Pantoprazole [Protonix Tab] 40 mg PO BID 01/15/22 levETIRAcetam [Keppra*] 100 mg PO BID 01/15/22 Cetirizine HCl 10 mg PO BEDTIME 06/28/23 Famotidine 20 mg PO BEDTIME 06/28/23 Furosemide 20 mg PO DAILY 06/28/23 Followup: Imtiaz Heaton MD [Primary Care Provider] - Time spent managing pt's care (in minutes): 45
== END 2023-06-29 20:06 | disposition short-term general hospital (02) | DRG 101 ==
LOC: ER 19:09 → 2ND 23:20 → 3RD-ICU 06-28 18:29
PROVIDERS: ADMIT Internal Medicine; ATTEND Hospitalist
DX: G40.909 Epilepsy, unspecified, not intractable, without status epilepticus (principal); G81.91 Hemiplegia, unspecified affecting right dominant side; K21.9 Gastro-esophageal reflux disease without esophagitis; F15.10 Other stimulant abuse, uncomplicated; I10 Essential (primary) hypertension; G83.84 Todd's paralysis (postepileptic); K22.70 Barrett's esophagus without dysplasia; Z86.73 Personal history of transient ischemic attack (TIA), and cerebral infarction without residual deficits; Z90.49 Acquired absence of other specified parts of digestive tract; Z91.199 Patient's noncompliance with other medical treatment and regimen due to unspecified reason; Z79.899 Other long term (current) drug therapy; Z20.822 Contact with and (suspected) exposure to COVID-19
CPT/HCPCS: 36415; 70450; 70496; 70498; 70553; 71045; 80048; 80076; 80164; 80177; 80307; 81003; 82077; 82947; 83735; 84439; 84443; 84484; 85025; 85610; 85730; 87811; 92610; 93005; 99285; J1953; J2405; J7030; Q9967

== ENCOUNTER 2024-06-30 22:55 | Emergency (ER) | payer OTHER ==
[2024-06-30] MEDS ORDERED: LORazepam 2 MG/ML VIAL ONE (23:32)
[2024-06-30] MEDS ORDERED: NA CHLORIDE 0.9% 1,000 ML ONE (23:32)
[2024-06-30 23:38] LABS: Absolute Eosinophils 0.2 K/uL (0-0.5); Absolute Lymphocytes (CBC) 2.1 K/uL (0.7-4.9); Absolute Monocytes 0.7 K/uL (0.1-1.3); Absolute Neutrophil 5.2 K/uL (1.8-8.0); Basophils % 0.4 % (0-1.3); Eosinophils % 2.4 % (0-4.4); Hematocrit 39.9 % (39.6-49.0); Hemoglobin 13.3 g/dL (13.6-17.9); Lymphocytes % 25.3 % (15.3-44.8); MCH 27.9 pg (27.0-35.0); MCHC 33.3 g/dL (32.0-36.0); MCV 83.9 fL (80-100); MPV 8.1 fL (7.6-11.3); Monocytes % 8.4 % (3.3-12.3); Neutrophils % 63.5 % (41.7-73.7); Nucleated Red Blood Cells % 0.1 % (0-0); Platelets 298 thou/uL (152-406); RBC Red Blood Cell Count 4.76 M/uL (4.33-5.43); Red Cell Distribution Width 14.4 % (12.1-15.2)
[2024-06-30 23:41] LABS: PT Prothrombin Time 11.3 SECONDS (9.4-12.5); PTT, Activated Partial Thromb 29.9 SECONDS (24.3-36.9); Protime INR 1.01
[2024-06-30 23:50] LABS: ALT/SGPT 46 U/L (16-61); AST/SGOT 40 U/L (15-37); Albumin 2.7 g/dL (3.4-5.0); Albumin/Globulin Ratio 0.8 (1.1-1.8); Alkaline Phosphatase 106 U/L (45-117); Anion Gap 8.7 mEq/L (5.0-15.0); BUN Blood Urea Nitrogen 9 mg/dL (7-18); Bicarbonate 28 mEq/L (21-32); Bilirubin Total 0.2 mg/dL (0.2-1.0); Globulin 3.6 g/dL (2.3-3.5); Glomerular Filtration Rate 108 ml/min (=/>90); Glucose Level 121 mg/dL (74-106); Potassium 2.7 mEq/L (3.5-5.1); Protein, Total 6.3 g/dL (6.4-8.2); Sodium Level 139 mEq/L (136-145)
[2024-06-30 23:52] LABS: Bilirubin Direct < 0.2 mg/dL (0-0.2)
[2024-07-01] MEDS ORDERED: NA CHLORIDE 0.9% 1,000 ML ONE (00:54)
[2024-07-01] MEDS ORDERED: KCL 20 MEQ/100 mL IVPB 100 ML IV ONE (00:55)
[2024-07-01] MEDS ORDERED: POTASSIUM 25 MEQ EFFERV TAB ONE (01:36)
[2024-07-01 02:51] LABS: Specific Gravity 1.013 (1.005-1.030); Sqamous Epithelial None Seen /HPF (None Seen); Urine Bacteria <20 /HPF (<20); Urine Bilirubin NEGATIVE (Negative); Urine Blood Negative (Negative); Urine Clarity Turbid (Clear); Urine Color Light-Yellow (Yellow); Urine Culture Reflex Order NOT NEEDED; Urine Glucose NEGATIVE (Negative); Urine Ketones NEGATIVE (Negative); Urine Microscopic Reflex YN ORDER UMIC; Urine Mucus Slight /HPF (None Seen); Urine Nitrite NEGATIVE (Negative); Urine Protein NEGATIVE (Negative); Urine RBC None Seen /HPF (None Seen); Urine Urobilinogen Normal (Normal); Urine WBC <5 /HPF (<5)
[2024-07-01 02:55] LABS: Barbiturates NEGATIVE (NEGATIVE); Benzodiazepines NEGATIVE (NEGATIVE); Cocaine POSITIVE (NEGATIVE); METHAMPHETAM POSITIVE (NEGATIVE); Methadone NEGATIVE (NEGATIVE); Opiates NEGATIVE (NEGATIVE); Phencyclidine NEGATIVE (NEGATIVE); THC Cannibis POSITIVE (NEGATIVE)
--- NOTE | 2024-07-01 05:53 | ER ---
Nurse's Notes [facility] Name: Ta Quezada Age: 44 yrs Sex: Male : 1980 Arrival Date: 06/30/2024 Time: 22:55 Bed 3 Private MD: Diagnosis: Other seizures;Hypokalemia Presentation: 06/30 23:21 Chief complaint: Patient states: family states that patient was having a seizure al5 lasting less than a minute but has been having them frequently recently, when patient arrive patient experienced another seizure in the room lasting less than a minute. patient alert to verbal stimuli. patient complains of headache for past 30 minutes, back pain, leg and arm pain intermittently for "a while now". Coronavirus screen: At this time, the client does not indicate any symptoms associated with coronavirus-19. Ebola Screen: No symptoms or risks identified at this time. Initial Sepsis Screen: Does the patient meet any 2 criteria? No. Patient's initial sepsis screen is negative. Does the patient have a suspected source of infection? No. Patient's initial sepsis screen is negative. Risk Assessment: Do you want to hurt yourself or someone else? Patient reports no desire to harm self or others. Onset of symptoms was June 30, 2024. 23:21 Method Of Arrival: Wheelchair al5 23:21 Acuity: RENE 3 al5 Triage Assessment: 23:26 General: Appears in no apparent distress. Behavior is calm, cooperative. Pain: al5 Complains of pain in generalized. EENT: No signs and/or symptoms were reported regarding the EENT system. Neuro: Level of Consciousness is alert, obeys commands, Oriented to person, place, time, situation. Cardiovascular: Patient's skin is warm and dry. Respiratory: Airway is patent Respiratory effort is even, unlabored, Respiratory pattern is regular, symmetrical. GI: No signs and/or symptoms were reported involving the gastrointestinal system. : No signs and/or symptoms were reported regarding the genitourinary system. Derm: Skin is intact, Skin is pink, warm \\T\\ dry. normal. Musculoskeletal: No signs and/or symptoms reported regarding the musculoskeletal system. Historical: - Allergies: 23:24 No Known Allergies; al5 - Home Meds: 23:24 Depakote 125 mg Oral TbEC [Active]; Keppra 1 Oral tab [Active]; Lasix Oral [Active]; al5 pantoprazole Oral [Active]; pregabalin Oral [Active]; - PMHx: 23:24 Depression; GERD; Hypertension; Kidney stones; neuropathy; Seizure; TIA; al5 - PSHx: 23:24 Cholecystectomy; al5 - Immunization history:: Adult Immunizations up to date. - Infectious Disease History:: Denies. - Social history:: Smoking status: Patient reports the use of cigarette tobacco products, smokes one-half pack cigarettes per day. Screenin:29 [facility] ED Fall Risk Assessment (Adult) History of falling in the last 3 months, al5 including since admission No falls in past 3 months (0 pts) Confusion or Disorientation No (0 pts) Intoxicated or Sedated No (0 pts) Impaired Gait No (0 pts) Mobility Assist Device Used No (0 pt) Altered Elimination No (0 pt) Score/Fall Risk Level 0 - 2 = Low Risk Oriented to surroundings, Maintained a safe environment, Hourly rounding (assess needs \\T\\ fall precautionary measures) done. Abuse screen: Denies threats or abuse. Denies injuries from another. Nutritional screening: No deficits noted. Tuberculosis screening: No symptoms or risk factors identified. Assessment: 23:28 Reassessment: see triage assessment. al5 23:41 Reassessment: Patient appears in no apparent distress at this time. Patient and/or bm8 family updated on plan of care and expected duration. Pain level reassessed. Patient is alert, oriented x 3, equal unlabored respirations, skin warm/dry/pink. Pain: Complains of pain in left low back, right low back, anterior aspect of left upper chest and right lateral anterior chest Pain currently is 8 out of 10 on a pain scale. Neuro: No deficits noted. Level of Consciousness is awake, alert, obeys commands, Oriented to person, place, time, situation, Appropriate for age. Cardiovascular: Reports chest pain, Heart tones S1 S2 present Capillary refill < 3 seconds Patient's skin is warm and dry. Rhythm is sinus rhythm. Respiratory: Airway is patent Respiratory effort is even, unlabored, Respiratory pattern is regular, symmetrical, Breath sounds are clear bilaterally. GI: No deficits noted. : No deficits noted. EENT: No deficits noted. Derm: No deficits noted. Musculoskeletal: No signs and/or symptoms reported regarding the musculoskeletal system. 09/14 00:42 Reassessment: Patient appears in no apparent distress at this time. Patient and/or bm8 family updated on plan of care and expected duration. Pain level reassessed. Patient is alert, oriented x 3, equal unlabored respirations, skin warm/dry/pink. Patient denies pain at this time. Patient states feeling better. Patient states symptoms have improved. 03:28 Reassessment: Patient appears in no apparent distress at this time. Patient and/or bm8 family updated on plan of care and expected duration. Pain level reassessed. Patient is alert, oriented x 3, equal unlabored respirations, skin warm/dry/pink. pt is resting with eyes closed breathing is even unlabored, at bedside. 05:35 Reassessment: Patient appears in no apparent distress at this time. Patient and/or bm8 family updated on plan of care and expected duration. Pain level reassessed. Patient is alert, oriented x 3, equal unlabored respirations, skin warm/dry/pink. Patient denies pain at this time. Patient states feeling better. Patient states symptoms have improved. Vital Signs: 06/30 23:21 BP 157 / 111; Pulse 96; Resp 18; Temp 97.8; Pulse Ox 98% ; Weight 87.09 kg; Height 5 al5 ft. 11 in. ; Pain 10/10; 23:41 BP 97 / 61; Pulse 76; Resp 18; Temp 97.8; Pulse Ox 95% ; Pain 7/10; bm8 23:45 BP 130 / 86; Pulse 66; Resp 18; Pulse Ox 96% on R/A; al5 07/01 00:00 BP 135 / 84; Pulse 68; Resp 19; Pulse Ox 96% ; al5 00:42 BP 142 / 73; Pulse 80; Resp 17; Temp 97.8; Pulse Ox 95% ; Pain 0/10; bm8 01:00 BP 148 / 81; Pulse 79; Resp 21; Pulse Ox 95% on R/A; al5 03:28 BP 144 / 97; Pulse 74; Resp 18; Temp 98; Pulse Ox 97% on R/A; Pain 0/10; bm8 05:35 BP 183 / 58; Pulse 46; Resp 18; Temp 98; Pulse Ox 100% on R/A; Pain 0/10; bm8 06/30 23:21 Body Mass Index 26.78 (87.09 kg, 180.34 cm) al5 06/30 23:21 Pain Scale: Adult al5 23:41 Pain Scale: Adult bm8 00:42 Pain Scale: Adult bm8 03:28 Pain Scale: Adult bm8 05:35 Pain Scale: Adult bm8 [place] Coma Score: 06/30 23:26 Eye Response: to voice(3). Motor Response: obeys commands(6). Verbal Response: al5 oriented(5). Total: 14. 23:41 Eye Response: spontaneous(4). Motor Response: obeys commands(6). Verbal Response: bm8 oriented(5). Total: 15. 07/01 00:42 Eye Response: spontaneous(4). Motor Response: obeys commands(6). Verbal Response: bm8 oriented(5). Total: 15. 05:35 Eye Response: spontaneous(4). Motor Response: obeys commands(6). Verbal Response: bm8 oriented(5). Total: 15. ED Course: 06/30 22:56 Patient arrived in ED. rv1 23:01 Bruno Anand PA is PHCP. cp 23:01 Haile Benítez MD is Attending Physician. cp 23:20 Cathie Zacarias RN is Primary Nurse. al5 23:24 Triage completed. al5 23:28 Arm band placed on right wrist. Patient placed in the treatment room, on a stretcher. al5 23:29 Patient has correct armband on for positive identification. Bed in low position. Call al5 light in reach. Side rails up X2. Adult w/ patient. Provided Education on: processes and procedures. 23:29 No provider procedures requiring assistance completed. Inserted saline lock: 20 gauge al5 in right antecubital area, using aseptic technique. Blood collected. Flushed with 10 mL NS done by ED staff. 23:30 Seizure precautions initiated. al5 23:41 Client placed on continuous cardiac and pulse oximetry monitoring. NIBP monitoring bm8 applied. 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 Pulse ox on. NIBP on. Door closed. Noise minimized. Warm blanket given. Pillow given. Verbal reassurance given. Head of bed elevated. 23:41 Initial lab(s) drawn, by me, sent to lab. Inserted saline lock: 20 gauge in right bm8 forearm, using aseptic technique. Blood collected. Flushed with 10 mL NS IV discontinued, intact, bleeding controlled, No redness/swelling at site. Pressure dressing applied, 20g RAC dc. Patient maintains SpO2 saturation greater than 95% on room air. 07/01 00:35 CT Head Brain wo Cont In Process Unspecified. EDMS 00:53 LAB Add On Sent. vc1 00:57 Warm blanket given. oh1 02:40 Urinalysis w/ reflexes Sent. dd2 02:40 Urine Drug Screen Sent. dd2 06:05 IV discontinued, intact, bleeding controlled, No redness/swelling at site. Pressure bm8 dressing applied. Administered Medications: 06/30 23:40 Drug: Ativan IVP 1 mg IVP once Route: IVP; Site: right antecubital; [facility] 07/01 01:05 Follow up: Response: No adverse reaction [facility] 06/30 23:41 Drug: NS 0.9% IV 1000 ml IV at 1 bolus Per protocol; 1000 mL bolus Route: IV; Rate: 1 bm8 bolus; Site: right antecubital; 07/01 01:05 Follow up: Response: No adverse reaction; IV Status: Completed infusion; IV Intake: bm8 1000ml 01:05 Drug: Potassium Chloride IV 20 mEq IV at calculated rate once; administer over 1-2 bm8 hours Route: IV; Rate: calculated rate; Site: left forearm; 03:33 Follow up: Response: No adverse reaction; IV Status: Completed infusion; IV Intake: bm8 100ml 01:05 Drug: NS 0.9% IV 1000 ml IV at 150 ml/hr Per protocol Route: IV; Rate: 150 ml/hr; Site: bm8 left forearm; 01:20 Follow up: Response: No adverse reaction dd2 06:07 Follow up: Response: No adverse reaction; IV Status: Completed infusion; IV Intake: bm8 1000ml 01:38 Drug: Potassium PO Effervescent Tablet 50 mEq PO once; dissolve in 4 ounces of water or bm8 juice Route: PO; 02:08 Follow up: Response: No adverse reaction dd2 03:33 Follow up: Response: No adverse reaction bm8 Medication: 06/30 23:29 VIS not applicable for this client. al5 Intake: 07/01 01:05 IV: 1000ml; Total: 1000ml. bm8 03:33 IV: 100ml; Total: 1100ml. bm8 06:07 IV: 1000ml; Total: 2100ml. bm8 Outcome: 05:52 Discharge ordered by . sp4 06:05 Discharged to home ambulatory, bm8 06:05 Condition: stable 06:05 Discharge instructions given to patient, family, Instructed on discharge instructions, follow up and referral plans. no drinking with medication, no driving heavy equipment, medication usage, safety practices, stop using recreational drugs. Demonstrated understanding of instructions, follow-up care, medications, 06:07 Patient left the ED. bm8 Signatures: Dispatcher [employer] EDMS Bruno Anand PA PA cp Calcote, Vanessa RN RN vc1 Danyell Watson rv1 Haile Benítez MD MD sp4 Ronnie Reyes, RN RN bm8 Cathie Zacarias RN RN al5 ELEUTERIO BRIGHT RN RN dd2 Ebony Holley oh1 Corrections: (The following items were deleted from the chart) 06/30 23:26 23:24 Allergies: none; al5 al5 23:26 23:24 Allergies: Unable to obtain; al5 al5 07/01 03:33 03:28 GCS: 15, bm8 bm8
--- NOTE | 2024-07-01 05:53 | EDPHYS ---
Physician Documentation [facility] Name: Ta Quezada Age: 44 yrs Sex: Male : 1980 Arrival Date: 06/30/2024 Time: 22:55 Bed 3 Private MD: ED Physician Haile Benítez HPI: 06/30 23:05 This 44 yrs old Male presents to ER via Wheelchair with complaints of Probable Seizure. cp 23:05 The patient presents after having a single isolated seizure, that lasted less than 1 cp minute. Character of seizure(s): Loss of consciousness: the patient did not lose consciousness, Motor activity: generalized, shaking all over, Incontinence: none. Seizure Hx: Seizure medications: Keppra, depakote. Historical: - Allergies: 23:24 No Known Allergies; al5 - Home Meds: 23:24 Depakote 125 mg Oral TbEC [Active]; Keppra 1 Oral tab [Active]; Lasix Oral [Active]; al5 pantoprazole Oral [Active]; pregabalin Oral [Active]; - PMHx: 23:24 Depression; GERD; Hypertension; Kidney stones; neuropathy; Seizure; TIA; al5 - PSHx: 23:24 Cholecystectomy; al5 - Immunization history:: Adult Immunizations up to date. - Infectious Disease History:: Denies. - Social history:: Smoking status: Patient reports the use of cigarette tobacco products, smokes one-half pack cigarettes per day. ROS: 23:10 Constitutional: Negative for body aches, chills, fever, poor PO intake, cp 23:10 Constitutional: HX per hpi cp 23:10 ENT: Negative for drainage from ear(s), ear pain, sore throat, difficulty swallowing, difficulty handling secretions, 23:10 Cardiovascular: Positive for chest pain, Negative for edema, 23:10 Respiratory: Negative for cough, shortness of breath, wheezing, 23:10 Abdomen/GI: Negative for nausea and vomiting, diarrhea, constipation, 23:10 Neuro: Positive for headache, Negative for altered mental status, active seizing, 23:10 All other systems are negative, Exam: 23:15 Constitutional: The patient appears in no acute distress, alert, awake, cp non-diaphoretic, non-toxic, well developed, well nourished, 23:15 Head/Face: Normocephalic, atraumatic. cp 23:15 Eyes: Periorbital structures: appear normal, Pupils: equal, round, and reactive to light and accomodation, Conjunctiva: normal, no exudate, no injection, Sclera: no appreciated abnormality, Lids and lashes: appear normal, bilaterally, 23:15 ENT: External ear(s): are unremarkable, Nose: is normal, Mouth: is normal, Posterior pharynx: Airway: no evidence of obstruction, patent, 23:15 Neck: ROM/movement: Meningeal signs: are not present, nuchal rigidity, is not appreciated, 23:15 Chest/axilla: Inspection: normal, Palpation: crepitus, is not appreciated, tenderness, of the all over, 23:15 Cardiovascular: Rate: normal, Rhythm: regular, 23:15 Respiratory: the patient does not display signs of respiratory distress, Respirations: normal, no use of accessory muscles, no retractions, labored breathing, is not present, Breath sounds: are clear throughout, no decreased breath sounds, no stridor, no wheezing, 23:15 Abdomen/GI: Inspection: abdomen appears normal, Bowel sounds: active, all quadrants, Palpation: soft, in all quadrants, mild abdominal tenderness, in all quadrants, rebound tenderness, is not appreciated, involuntary guarding, is not appreciated, 23:15 Back: pain, that is mild, ROM is normal, 23:15 Neuro: Orientation: to person, place \T\ time. Mentation: able to follow commands, Motor: moves all fours, Gait: is steady, 23:42 ECG was reviewed by the Attending Physician. cp Vital Signs: 23:21 BP 157 / 111; Pulse 96; Resp 18; Temp 97.8; Pulse Ox 98% ; Weight 87.09 kg; Height 5 al5 ft. 11 in. ; Pain 10/10; 23:41 BP 97 / 61; Pulse 76; Resp 18; Temp 97.8; Pulse Ox 95% ; Pain 7/10; bm8 23:45 BP 130 / 86; Pulse 66; Resp 18; Pulse Ox 96% on R/A; al5 09/14 00:00 BP 135 / 84; Pulse 68; Resp 19; Pulse Ox 96% ; al5 00:42 BP 142 / 73; Pulse 80; Resp 17; Temp 97.8; Pulse Ox 95% ; Pain 0/10; bm8 01:00 BP 148 / 81; Pulse 79; Resp 21; Pulse Ox 95% on R/A; al5 03:28 BP 144 / 97; Pulse 74; Resp 18; Temp 98; Pulse Ox 97% on R/A; Pain 0/10; bm8 05:35 BP 183 / 58; Pulse 46; Resp 18; Temp 98; Pulse Ox 100% on R/A; Pain 0/10; bm8 06/30 23:21 Body Mass Index 26.78 (87.09 kg, 180.34 cm) al5 06/30 23:21 Pain Scale: Adult al5 23:41 Pain Scale: Adult bm8 00:42 Pain Scale: Adult bm8 03:28 Pain Scale: Adult bm8 05:35 Pain Scale: Adult bm8 Karie Coma Score: 06/30 23:26 Eye Response: to voice(3). Motor Response: obeys commands(6). Verbal Response: al5 oriented(5). Total: 14. 23:41 Eye Response: spontaneous(4). Motor Response: obeys commands(6). Verbal Response: bm8 oriented(5). Total: 15. 07/01 00:42 Eye Response: spontaneous(4). Motor Response: obeys commands(6). Verbal Response: bm8 oriented(5). Total: 15. 05:35 Eye Response: spontaneous(4). Motor Response: obeys commands(6). Verbal Response: bm8 oriented(5). Total: 15. MDM: 06/30 23:03 Patient medically screened. 07/01 05:43 ED course: CT HEAD WITHOUT IV CONTRAST INDICATION: Headache. COMPARISON: CT Brain sp4 06/28/2023. TECHNIQUE: CT images of the head were obtained without contrast. Multiplanar reformats were provided. Dose lowering techniques such as automated exposure control, iterative reconstruction, and mA and/or kV adjustment for patient size was utilized for this examination. FINDINGS: PARENCHYMA: No acute infarct or hemorrhage. No mass effect or midline shift. VENTRICLES: Normal in size for patient's age. EXTRA-AXIAL: No focal collection. Patent basilar cisterns. BONES: No acute finding. ORBITS: Unremarkable. PARANASAL SINUSES/MASTOIDS/MIDDLE EARS: Clear. SOFT TISSUES: No acute findings. OTHER: None. IMPRESSION: No acute intracranial abnormality.. 05:54 Differential diagnosis: cerebral vascular accident, drug overdose, seizure, TIA. Data sp4 reviewed: vital signs, nurses notes, old medical records, lab test result(s), EKG, radiologic studies, CT scan. Consideration of Admission/Observation Escalation of care including admission/observation considered. ED course: Tested positive for cocaine, methamphetamine and cannabis which is likely cause of seizure activity.. 06/30 23:02 Order name: Acetaminophen; Complete Time: 01:18 07/01 00:44 Interpretation: Reviewed. 06/30 23:02 Order name: Basic Metabolic Panel; Complete Time: 01:18 07/01 00:44 Interpretation: Normal except: K 2.7; GLUC 121. 06/30 23:02 Order name: CBC with Diff; Complete Time: 00:43 cp 07/01 00:47 Interpretation: Reviewed. 06/30 23:02 Order name: ETOH Level; Complete Time: 00:43 06/30 23:02 Order name: Hepatic Function; Complete Time: 01:18 07/01 00:44 Interpretation: Normal except: AST 40; IBILI, CALC 0.0; TP 6.3; ALB 2.7; GLOB 3.6; A/G cp 0.8. 06/30 23:02 Order name: PT-INR; Complete Time: 00:43 06/30 23:02 Order name: Ptt, Activated; Complete Time: 00:43 06/30 23:02 Order name: Salicylate; Complete Time: 00:43 06/30 23:02 Order name: Urinalysis w/ reflexes; Complete Time: 05:41 06/30 23:02 Order name: Urine Drug Screen; Complete Time: 05:41 07/01 00:46 Order name: LAB Add On 07/01 00:48 Order name: Magnesium; Complete Time: 01:18 EDMS 07/01 01:18 Interpretation: Reviewed. 06/30 23:34 Order name: CT Head Brain wo Cont 06/30 23:02 Order name: EKG - Nurse/Tech; Complete Time: 23:30 06/30 23:02 Order name: IV Saline Lock; Complete Time: 23:30 06/30 23:02 Order name: Labs collected and sent; Complete Time: 23:30 06/30 23:02 Order name: Suicide Screening (Rufus); Complete Time: 23:41 cp EC/13 23:42 Rate is 68 beats/min. Rhythm is regular. NC interval is normal. QRS interval is cp prolonged at 104 msec. QT interval is normal. T waves are Inverted in lead aVR. Interpreted by me. Reviewed by me. Administered Medications: 23:40 Drug: Ativan IVP 1 mg IVP once Route: IVP; Site: right antecubital; [facility] 07/01 01:05 Follow up: Response: No adverse reaction [facility] 06/30 23:41 Drug: NS 0.9% IV 1000 ml IV at 1 bolus Per protocol; 1000 mL bolus Route: IV; Rate: 1 bm8 bolus; Site: right antecubital; 07/01 01:05 Follow up: Response: No adverse reaction; IV Status: Completed infusion; IV Intake: bm8 1000ml 01:05 Drug: Potassium Chloride IV 20 mEq IV at calculated rate once; administer over 1-2 bm8 hours Route: IV; Rate: calculated rate; Site: left forearm; 03:33 Follow up: Response: No adverse reaction; IV Status: Completed infusion; IV Intake: bm8 100ml 01:05 Drug: NS 0.9% IV 1000 ml IV at 150 ml/hr Per protocol Route: IV; Rate: 150 ml/hr; Site: 8 left forearm; 01:20 Follow up: Response: No adverse reaction dd2 06:07 Follow up: Response: No adverse reaction; IV Status: Completed infusion; IV Intake: bm8 1000ml 01:38 Drug: Potassium PO Effervescent Tablet 50 mEq PO once; dissolve in 4 ounces of water or bm8 juice Route: PO; 02:08 Follow up: Response: No adverse reaction dd2 03:33 Follow up: Response: No adverse reaction bm8 Disposition: 05:52 Co-signature as Attending Physician, Haile Benítez MD I agree with the assessment sp4 and plan of care. I reviewed the patient's care provided by Advanced Practice Provider \T\ agree w/ the diagnosis \T\ care plan. I personally saw the pt \T\ performed a substantive portion of the visit, incldng all aspects of the (History/Exam/Medical Decision Making). Disposition Summary: 07/01/24 05:52 Discharge Ordered Notes: Location: Home sp4 Problem: an acute exacerbation sp4 Symptoms: have improved sp4 Condition: Stable sp4 Diagnosis - Other seizures sp4 - Hypokalemia sp4 Followup: cp - With: Private Physician - When: 2 - 3 days - Reason: Recheck today's complaints Discharge Instructions: - Discharge Summary Sheet cp - Seizure, Adult cp Forms: - Patient Portal Instructions sp4 Prescriptions: - Ativan 1 mg Oral tablet - take 1 tablet ORAL route once daily As needed PRN for breakthrough seizures; 12 sp4 tablet; Refills: 0, Product Selection Permitted Signatures: Dispatcher [employer] EDMS Bruno Anand PA PA cp Potepalov, Sergey, MD MD sp4 Ronnie Reyes, RN RN bm8 Cathie Zacarias RN RN al5 ELEUTERIO BRIGHT RN dd2 Corrections: (The following items were deleted from the chart) 06/30 23:26 23:24 Allergies: none; al5 al5 23:26 23:24 Allergies: Unable to obtain; al5 al5 07/01 00:53 00:47 MAGNESIUM+[id number].LAB.BRZ ordered. EDMS EDMS
[2024-07-01 06:40] VITALS: TEMP 98
[2024-07-01 06:42] VITALS: BP 183/58; O2SAT 100
--- NOTE | 2024-07-01 21:08 | RAD REPORT ---
EXAM DESCRIPTION: CT - Head Brain Wo Cont - 07/01/2024 7:06 am CLINICAL HISTORY: Headache. COMPARISON: CT Brain 06/28/2023. TECHNIQUE: CT images of the head were obtained without contrast. Multiplanar reformats were provided . Dose lowering techniques such as automated exposure control, iterative reconstruction, and mA and/o r kV adjustment for patient size was utilized for this examination. FINDINGS: PARENCHYMA: No acute infarct or hemorrhage. No mass effect or midline shift. VENTRICLES: Normal in size for patient's age. EXTRA-AXIAL: No focal collection. Patent basilar cisterns. BONES: No acute finding. ORBITS: Unremarkable. PARANASAL SINUSES/MASTOIDS/MIDDLE EARS: Clear. SOFT TISSUES: No acute findings. OTHER: None. IMPRESSION: No acute intracranial abnormality. Electronically signed by: Radha Nathan MD 07/01/2024 01:04 AM CDT RP Due to temporary technical issues with the PACS/Fluency reporting system, reports are being signed by the in house radiologists without review as a courtesy to insure prompt reporting. The interpreting radiologist is fully responsible for the content of the report.
--- NOTE | 2024-07-03 12:55 | EKG ---
Test Date: 2024-06-30 Test Time: 23:36:55 Supervisor [place]: BELKIS MEASUREMENT RESULTS: Intervals: Rate: 68 CT: 156 QRSD: 104 QT: 416 QTc: 442 [place]: P: 48 CT: 156 QRS: 76 T: 56 INTERPRETIVE STATEMENTS: Normal sinus rhythm Normal ECG Compared to ECG 06/27/2023 19:18:25 No significant changes Electronically Signed On 07-03-24 12:48:57 CDT by Henry Walton
== END 2024-07-01 06:07 | disposition home or self-care (01) ==
LOC: ER 22:55
DX: G40.89 Other seizures (principal); E87.6 Hypokalemia; F32.A Depression, unspecified; K21.9 Gastro-esophageal reflux disease without esophagitis; I10 Essential (primary) hypertension; F17.210 Nicotine dependence, cigarettes, uncomplicated; Z86.73 Personal history of transient ischemic attack (TIA), and cerebral infarction without residual deficits
CPT/HCPCS: 96365; 96361; 93005; 85025; 81001; 80048; 36415; 83735; 85610; 80076; 85730; 80307; 70450; 96375; 99285; 96366; 80143; 80179; 82077; J3480; J7030 ×2